=== PATIENT | male | born 1955 | race Caucasian/White ===

== ENCOUNTER 2016-06-04 09:22 | Inpatient (IN) | payer MEDICARE, MEDICAID ==
[~2016-06-04] VITALS: Ht 160 cm; Wt 52.0 kg
[2016-06-04] MEDS: MIRALAX *UNIT DOSE* 17GM PACKET TF SCH (09:00)
[~2016-06-04 09:22] MED LIST: /MOXI40TA PO; /TAMS4CA; /TAMS4CA PO; ACET65TA; ACET65TA OR; ALBU83IN IN; ALBU83IN INH; ATOR40TA PO; AUGM875T27 PO; BACITAB3 PO; CIPR250T2 PO; CLIN1CAP5 PO; DEBR6.5S OT; DEPA250C PO; FLOM5CAP PO; GLUC5TAB3 PO; HEMOSUP20 PR; JANU100T PO; JANUVIA PO; LEVA500T PO; LEVA750T; MIRA3350 PO; O2; PAXI20TA; PAXI20TA PO; PAXI20TA3 PO; PAXI40TA; PRED20TA; SENAKOT PO; SENN-23 PO; SENN8.6T5; SENO8.6T9 PO; SINE25TA5 PO; ZITH250T OR; ZOCO20TA; ZOCO40TA PO; ZYPR2.5T; ZYPR2.5T PO; ZYPR2.5T2 PO; ZYPR5TAB2 PO; [UNRECOGNIZED DRUG - CODE] PO; januvia
[2016-06-04 09:50] LABS: ABG BASE EXCESS 1.2 (-2.0-2.0); ABG DEVICE NASAL CANN; ABG HCO3 26.1 MEQ/L (22.0-26.0); ABG PARTIAL PRESSURE CO2 42.2 mmHg (35.0-45.0); ABG PARTIAL PRESSURE O2 130.4 mmHg (75.0-100.0); ABG STANDARD HCO3 25.6 MEQ/L (22.0-26.0); ABG TOTAL CO2 27.4 MEQ/L (23.0-31.0); ABG pH (ARTERIAL) 7.409 UNITS (7.350-7.450)
--- NOTE | 2016-06-04 09:52 | REP ---
Clinical: Acute shortness of breath. Technique: Portable semiupright. Comparison: 05/19/2016. Findings: Bilateral perihilar and lower lobe infiltrates with possible small pleural reaction noted. Differential diagnosis includes pulmonary edema as well as multifocal pneumonia. No pneumothorax. Mediastinum and cardiac silhouette are stable - mild cardiomegaly again suspected. Impression: Bilateral perihilar and basilar opacities. Differential diagnosis includes pulmonary edema and pneumonia. Signed by Steven Rossi MD 06/04/2016 09:43 A
[2016-06-04] MEDS ORDERED: ACETAMINOPHEN 325 MG TAB As Ordered ONE (10:08)
[2016-06-04 10:22] LABS: MEAN CORPUSCULAR HGB CONC 33.1 g/dl (32.0-36.5); MEAN CORPUSCULAR VOLUME 93.7 fl (80.0-96.0); PLATELET COUNT, AUTOMATED 122 k/mm3 (150-450); RED CELL DISTRIBUTION WIDTH 15.5 % (11.5-14.5); WHITE BLOOD COUNT 3.1 K/mm3 (4.0-10.0)
[2016-06-04 10:35] LABS: ANION GAP 8 MEQ/L (8-16); BLOOD UREA NITROGEN 20 MG/DL (7-18); CALCIUM LEVEL 8.2 MG/DL (8.8-10.2); CARBON DIOXIDE LEVEL 30 MEQ/L (21-32); CHLORIDE LEVEL 104 MEQ/L (98-107); CREATININE FOR GFR 1.08 MG/DL (0.70-1.30); GLOMERULAR FILTRATION RATE > 60.0 (>49); GLUCOSE, FASTING 180 MG/DL (80-110); POTASSIUM SERUM 4.7 MEQ/L (3.5-5.1); SODIUM LEVEL 142 MEQ/L (136-145)
[2016-06-04 10:41] LABS: INR 1.17
[2016-06-04 10:42] LABS: BANDS 4 % (< 11); BASOPHILS 2 % (0-4)
[2016-06-04] MEDS ORDERED: CEFEPIME INJ 2 GM VIAL (MAXIPIME) (J0692) As Ordered ONE (11:02)
[2016-06-04 11:14] LABS: ALBUMIN 2.9 GM/DL (3.2-5.2); ALBUMIN/GLOBULIN RATIO 0.76 (1.00-1.93); BILIRUBIN,DIRECT 0.3 MG/DL (0.0-0.2); BILIRUBIN,TOTAL 0.8 MG/DL (0.2-1.0); TOTAL PROTEIN 6.7 GM/DL (6.4-8.2)
[2016-06-04] MEDS ORDERED: SENN8.6T7 PO (11:52)
[2016-06-04] MEDS: HumaLOG INSULIN (NovoLOG) PER UNIT SC SCH ×2 (12:00→18:01)
--- NOTE | 2016-06-04 12:18 | REP ---
Clinical: Sepsis. Comparison: 05/19/2016. Findings: Multi focal alveolar infiltrates and areas of consolidation with air bronchograms involve the bilateral upper lobes, lower lobes, and right middle lobe which are increased when compared to prior examination. No pleural effusion. No pneumothorax. Subcentimeter reactive adenopathy to the mediastinum is suggested. Stable cardiomegaly. Surrounding musculoskeletal structures demonstrate age-related changes without focal osseous abnormality. Impression: 1. Bilateral multifocal infiltrates increased from prior examination. Differential diagnosis includes multifocal pneumonia and pulmonary edema. No effusion. Subcentimeter reactive lymph nodes without significant adenopathy. 2. Stable chronic cardiomegaly with minimal epicardial fluid. Signed by Steven Rossi MD 06/04/2016 12:09 P
[2016-06-04] MEDS ORDERED: BISACODYL 10 MG SUPP PR PRN (12:30)
[2016-06-04] MEDS ORDERED: ONDANSETRON 4MG/2ML VIAL (J2405) IV PRN (12:30)
[2016-06-04] MEDS ORDERED: GLUCAGON FOR INJ 1 MG VIAL (J1610) SC PRN (12:45)
[2016-06-04] MEDS ORDERED: GLUCOSE 4 GM CHEW TABLET PO PRN (12:45)
[2016-06-04] MEDS ORDERED: DEXTROSE 50% 50 ML SYRINGE IV PRN (12:45)
[2016-06-04] MEDS: IPRATROPIUM 0.5MG/ALBUTEROL 2.5MG INH SOL UD 3ML (DUONEB)(J7620) NEB SCH ×2 (14:00→19:14)
--- NOTE | 2016-06-04 14:23 | PHACANCOPD ---
PHARMACY VANCOMYCIN DOSING Pt Demographics Demographics Patient Age:61 , Weight:61.000 , Gender: male Adjusted Body Weight Date: 06/04/16, Adjusted Body Weight: Kg Events Past 24 Hours Events Past 24 Hours: NO: Change in CrCl, Dialysis, Diuretic Therapy, Elevation in WBC, Fever, Other, Pending Diagnostics, Pending Procedures Vancomycin Vancomycin indication: pneumonia Vancomycin Target Ranges: 10-20 mcg/ml Vancomycin Load Y/N: No Load Dose Date Time Vancomycin Load Dose: Date: Time: Vancomycin Dose Date: 06/04/16. Current Vancomycin Dose: [1g IV q12h @16] Intermittent Dosing?: No Labs Labs Item Value Date Time White Blood Count 3.1 K/mm3 L 06/04/16 1002 Creatinine 1.08 MG/DL 06/04/16 1002 C-Reactive Protein, Quantitative 2.32 MG/DL H 06/04/16 1044 Micro Microbiology 06/04/16 Blood Culture, Received Pending 06/04/16 Blood Culture, Received Pending 06/04/16 Urine Culture, Received Pending Creatinine Clearance Date:06/04/16. Creatinine Clearance: [58 ml/min]. Assessment and Plan Maintaining Current Dose?: Yes Reason for dose change: No Dose Change Pharmacist Note Pharmacist Note Date: 06/04/16. Pharmacist note: pt is being treated for aspiration pneumonia/ sepsis and has been started on Zosyn and Vanco. He was on Zosyn and Vanco earlier this month for the same indication. Based on prior dosing, I have started him on Vanco 1g IV q12h. Cultures are pending, we will continue to monitor and order a trough as necessary. Joni Barth Pharm.D. Jun 04, 2016 14:23
--- NOTE | 2016-06-04 14:28 | EDDOCDS ---
Nurse's Notes [facility] Name: Baldemar Jones Age: 61 yrs Sex: Male : 1955 Arrival Date: 06/04/2016 Time: 09:22 Bed 3 Private MD: Gerri High Diagnosis: Sepsis, unspecified organism;Bronchopneumonia, unspecified organism-multifocal ;Hypotension-resolved Presentation: 06/04 09:31 Presenting complaint: EMS states: low O2, 79-81% on RA upon EMS arrival. pt uses 2L O2 af2 at hs. per [facility] staff pt has been awake all night, diarrhea yesterday. Adult Sepsis Screening: The patient does not have new or worsening altered mentation. Patient's respiratory rate is less than 22. Systolic blood pressure is greater than 100. Patient has a qSOFA score of 1- Negative Sepsis Screen. Patient has cough and/or SOB- Positive Sepsis Screen. Patient made TANESHA Level 2. Patient placed in exam room. Charge nurse notified. Suicide/Homicide risk assessment- Unable to assess, due to patient's chronic mental disability. Status: Patient is not a patient financial services specialist or dependent. Transition of care: patient was received from [facility]. 09:31 Acuity: TANESHA Level 2 af2 09:31 Method Of Arrival: Ambulance af2 Triage Assessment: 09:47 General: Appears ill, Behavior is fussy. Pain: Unable to use pain scale. Does not af2 appear to understand pain scale. HIV screening NA for this visit Offered previously. Respiratory: Onset: The symptoms/episode began/occurred this morning, Airway is patent Respiratory effort is shallow, Parent/caregiver reports the patient having cough that is non-productive, decreased O2 sats. Derm: Skin is pale. Historical: - Allergies: No known drug Allergies; - Home Meds: 1. Miralax 17 gram/dose Oral powd once daily (Last dose: Unknown) 2. paroxetine HCl 20 mg Oral tab once daily (Last dose: Unknown) 3. Zyprexa 5 mg Oral tab 1 tab once daily (Last dose: 06/03/2016) 4. Sinemet 25-100 mg Oral tab 1 tab 3 times per day (Last dose: Unknown) 5. albuterol sulfate 2.5 mg /3 mL (0.083 %) inhalation nebu 3 mL 4 times per day (Last dose: Unknown) 6. atorvastatin 40 mg oral tab 1 tab once daily (Last dose: Unknown) 7. Flomax 0.4 mg Oral cp24 1 cap once daily (Last dose: Unknown) 8. Diabetic Tussin DM 10-100 mg/5 mL oral syrp every 6 hours (Last dose: Unknown) 9. Tylenol 325 mg Oral tab 2 tabs every 6 hours (Last dose: 06/04/2016 04:00) 10. oxygen 2 liters NC nightly (Last dose: Unknown) 11. Senna-S 8.6-50 mg oral tab prn (Last dose: Unknown) 12. Lipitor 40 mg Oral tab once daily - PMHx: Asthma; BPH; Diabetes - NIDDM: controlled; Down's Syndrome; Hypercholesterolemia; Parkinson's Disease; - PSHx: none; - The history from nurses notes was reviewed: and I agree with what is documented. - Social history: Smoking status: Patient states was never smoker of tobacco. non-verbal. - : The pt / caregiver states he / she is not on anticoagulants. Home medication list is obtained from the facility MAR. - Exposure Risk Screening:: None identified. - Immunization history:: All immunizations up-to-date. - Family history: Not pertinent. - Social history:: the patient is a non-smoker, resides at a fdc. Screenin:18 Screening information is obtained from the caregiver. Fall risk: At risk due to af2 apparent chemical impairment, The following interventions are performed due to a positive Fall Risk Screen: Fall Risk is added to Special Handling on the patient Summary Screen. A Fall Risk Bracelet was applied to the patient. Side Rails are placed in the up position. A Call Bowens is given with instruction to call for help when getting out of bed. Assistance ADL's: Requires assistance with meal preparation, this assistance is provided by residence staff, bathing, assistance is provided by dressing, assistance is provided by toileting, assistance is provided by ambulation, assistance is provided by housework, assistance is provided by medication administration, assistance is provided by medications crushed in applesauce. Abuse/DV Screen: The patient / caregiver reports he/she is: pt cannot be assessed for living situation at this time. Unable to Assess. Nutritional screening: On diabetic diet, Difficulty chewing/swallowing? Yes nectar thickened . Advance Directives: Currently, there is no health care proxy. home support is adequate. Assessment: 10:15 General: Appears distressed, Behavior is fussy. Pain: Noted to be agitated. af2 Neurological: Level of Consciousness is awake, alert. Cardiovascular: Rhythm is sinus rhythm No ectopy. Respiratory: Airway is patent Respiratory effort is shallow, Breath sounds with rhonchi bilaterally. in right middle lobe and left lower lobe Breath sounds are diminished bilaterally. Parent/caregiver reports the patient having cough that is decreased O2 saturations. GI: Parent/caregiver reports the patient having diarrhea. Derm: Skin is pale. 11:15 General: Appears ill, Behavior is cooperative, 1st 500cc bag of fluids infusing per MD af2 order, will monitor pt and reassess for rales upon completion. [facility] staff at bedside.. Neurological: Level of Consciousness is awake, alert. Respiratory: Airway is patent Respiratory effort is even, unlabored. Respiratory: Breath sounds are diminished bilaterally. Derm: Skin is pale. 11:56 General: Appears ill, Behavior is cooperative, 2nd 500cc NS started at this time. This af2 sports writer assessed breath sounds at this time, no rales noted. Breath sounds continue to be diminished in anterior cuello bilaterally. Will continue to monitor pt.. 12:52 General: Appears ill, Behavior is cooperative. Neurological: Level of Consciousness is af2 awake, alert. Cardiovascular: Rhythm is sinus rhythm No ectopy. Respiratory: Airway is patent Respiratory effort is even, unlabored, Breath sounds with rhonchi bilaterally. 12:55 General: this sports writer contacted hospitalist regarding pt receiving 1000 ml of 1800 ml af2 bolus, bilateral breath sounds contain rales. per hospitalist, change NS to run at 100 ml/hr.. 13:09 General: Report given to GWYN Siddiqui, in ICU. After admission information completed with af2 [facility] staff, she has agreed to assume care of pt.. 13:35 General: admission nurse at bedside.. af2 14:12 General: Appears ill, Behavior is cooperative. Neurological: Level of Consciousness is af2 awake, alert. Respiratory: Airway is patent Respiratory effort is even, unlabored. Respiratory: Parent/caregiver reports the patient having cough that is. GI:. Derm: Skin is pale. 14:16 General: 14Fr NG tube inserted to left nare at this time, pt tolerated well. . af2 Vital Signs: 09:35 Pulse 102; Resp 18; Pulse Ox 81% on R/A; af2 09:38 Pulse Ox 94% on 15% Non-rebreather mask; af2 09:47 BP 110 / 68 LA (man/); Temp 101.0(R); af2 10:03 BP 88 / 52 LA (man/); Resp 22 S; af2 10:24 BP 92 / 50 LA (man/); af2 10:39 Weight 61 kg (M); af2 10:43 BP 118 / 56 (auto/); af2 10:43 Pulse 72 MON; Resp 20 S; Pulse Ox 94% on 50% Venturi mask; af2 10:44 BP 100 / 55 (auto/); af2 10:44 Pulse 83 MON; Resp 20; Pulse Ox 94% on 50% Venturi mask; af2 11:00 BP 116 / 59 (auto/); af2 11:00 Pulse 98 MON; Resp 22 S; Pulse Ox 92% on 50% Venturi mask; af2 11:15 BP 111 / 58 (auto/); af2 11:15 Pulse 93 MON; Resp 20 S; Pulse Ox 93% on Venturi mask; af2 11:45 BP 114 / 56 (auto/); af2 11:49 Pulse 93 MON; Resp 18 S; Pulse Ox 95% on 50% Venturi mask; af2 12:00 BP 101 / 53 (auto/); af2 12:00 Pulse 80 MON; Resp 18 S; Pulse Ox 91% on 50% Venturi mask; af2 12:15 BP 99 / 56 (auto/); af2 12:15 Pulse 79 MON; Resp 20 S; Pulse Ox 93% on 50% Venturi mask; af2 12:25 Temp 99.1(R); ls3 12:30 BP 112 / 58 (auto/); af2 12:30 Pulse 86 MON; Resp 20 S; Pulse Ox 98% on Venturi mask; af2 12:45 BP 121 / 59 (auto/); af2 12:45 Pulse 81 MON; Resp 20 S; Pulse Ox 94% on 50% Venturi mask; af2 13:00 BP 112 / 55 (auto/); af2 13:00 Pulse 79 MON; Resp 20; Pulse Ox 95% on 50% Venturi mask; af2 13:15 BP 101 / 53 (auto/); af2 13:15 Pulse 76 MON; Resp 20 S; Pulse Ox 96% on 50% Venturi mask; af2 13:30 BP 107 / 54 (auto/); af2 13:30 Pulse 75 MON; Resp 20 S; Pulse Ox 97% on 50% Venturi mask; af2 13:45 BP 105 / 54 (auto/); af2 13:45 Pulse 77 MON; Resp 20 S; Pulse Ox 96% on 50% Venturi mask; af2 14:00 BP 110 / 58 (auto/); af2 14:00 Pulse 74 MON; Resp 20 S; Pulse Ox 96% on 50% Venturi mask; af2 14:15 BP 134 / 60 (auto/); af2 14:15 Pulse 79 MON; Resp 18; Pulse Ox 97% on 50% Venturi mask; af2 Vitals: 09:35 Log In Time N/A - ambulance arrival. af2 ED Course: 09:23 Patient visited by Angelica Woodruff PCA. ar3 09:23 Patient moved to Waiting ar3 09:24 Melody Stuart RN is Primary Nurse. ar3 09:24 Gerri High is Private Physician. ar3 09:24 Patient moved to 10 ar3 09:27 Blake Mauricio MD is Attending Physician. pc 09:32 Patient visited by Blake Mauricio MD. pc 09:34 Triage Initiated af2 09:36 Patient visited by Melody Stuart RN. af2 09:46 -Arterial Blood Gas Sent. js 10:01 Lactic Acid (Pickering tube on ice) Sent. jo3 10:01 -Blood Culture Sent. jo3 10:01 B-Type Natiuretic Peptide Sent. jo3 10:01 Basic Metabolic Profile Sent. jo3 10:01 CBC with Diff Sent. jo3 10:01 Cardiac Injury Profile Sent. jo3 10:01 Troponin Sent. jo3 10:01 Inserted saline lock: 18 gauge in right antecubital area. jo3 10:01 Labs drawn. (by ED staff). Sent per order to lab. Labs/Blood culture drawn. jo3 10:03 Patient visited by Melody Stuart RN. af2 10:05 Patient visited by Melody Stuart RN. af2 10:12 Chest, 1 View Returned. EDMS 10:16 Patient name changed from Baldemar\S\\S\[place]ber[place]\S\ to Baldemar\S\ \S\[place]. EDMS 10:17 Patient visited by Melody Stuart RN. af2 10:17 [facility] Payment Agreement was scanned into [employer] and attached to record. lg 10:24 Patient visited by Melody Stuart RN. af2 10:24 EKG done. (by ED staff). Reviewed by Blake Mauricio MD. tk 10:25 Patient visited by Hamilton Chandler. tk 10:31 Amylase Sent. af2 10:31 C Reactive Protein Sent. af2 10:31 Liver Profile Sent. af2 10:31 PT/INR Sent. af2 10:31 PTT Sent. af2 10:31 PLATELET ESTIMATE Sent. af2 10:31 DIFFERENTIAL NO CHARGE Sent. af2 10:31 BLOOD CULTURES Sent. af2 10:37 Patient moved to 3 pc 10:39 Patient visited by Melody Stuart RN. af2 10:57 Urinalysis Sent. af2 10:57 Urine Culture Sent. af2 11:12 Patient visited by Melody Stuart RN. af2 11:13 Inserted saline lock: 18 gauge in left forearm and blood collected. The patient af2 tolerated the procedure well. No procedures done that require assistance. 11:14 O2 via Venturi mask \T\ 15L/min - 50%. af2 11:20 Patient visited by Melody Stuart RN. af2 11:22 Forrester cath inserted 16 Fr. Balloon inflated. To gravity drainage. Urine specimen af2 collected. Patient tolerated well. 11:23 Patient visited by Melody Stuart RN. af2 11:28 Patient visited by Melody Stuart RN. af2 11:58 Patient visited by Melody Stuart RN. af2 12:25 Patient visited by Pippa Ramos, [place]. ls3 12:30 Patient visited by Melody Stuart RN. af2 12:35 Asuncion Saavedra is Hospitalizing Provider. pc 12:42 CT Chest Without Contrast Returned. EDMS 12:49 The patient / caregiver is instructed regarding the plan of care and ED course. af2 Accompanied by Caregiver, Patient has correct armband on for positive identification. Placed in gown. Bed in low position. Call light in reach. Side rails up X2. library monitor on. Pulse ox on. NIBP on. 12:50 Patient visited by Melody Stuart RN. af2 13:11 Patient visited by Kleber Franco RN. bcj 13:36 Patient visited by Melody Stuart RN. af2 14:15 NGT inserted 14 Fr. via left nare. Placement verified. af2 14:16 Patient visited by Melody Stuart RN. af2 14:21 Patient visited by Melody Stuart RN. af2 Administered Medications: 10:14 Drug: Acetaminophen 650 mg [acetaminophen 325 mg tablet (2 tabs)] {Note: crushed in af2 apple sauce..} Route: PO; 11:12 Drug: Cefepime 2 grams [cefepime 2 gram solution for injection] Route: IVPB; Rate: 100 af2 mL/hr; Infused Over: 30 mins; Site: right antecubital; 11:13 Drug: NS 0.9% (Sepsis- hypotension or lactate >4mmol/L, 30ml/kg) 1800 ml [sodium af2 chloride 0.9 % intravenous solution] {Note: 1st 500cc started at this time..} Route: IV; Rate: bolus; Site: left forearm; 12:35 Follow up: IV Status: Completed infusion; IV Intake: 500ml jf3 Intake: 11:56 IV: 550.00ml (NS); Total: 550.00ml. af2 12:35 IV: 500.00ml; Total: 1050.00ml. jf3 12:50 IV: 500.00ml (NS); Total: 1550.00ml. af2 Output: 11:22 Urine: 300.00ml (Forrester); Total: 300.00ml. af2 RT: 09:46 ABG's drawn from right brachial artery allens test done and positive pressure held for js 5 minutes no bleeding noted pressure bandage applied specimen sent pt. tolerated well. O2 via non-rebreather \T\ 15L/min. Order Results: Lab Order: B-Type Natiuretic Peptide; SPEC'M 06/04/16 10:02 Test: BRAIN NATRIURETIC PEPTIDE; Value: 103; Range: <100; Abnormal: Above high normal; Units: PG/ML; Status: F Lab Order: Basic Metabolic Profile; SPEC'M 06/04/16 10:02 Test: GLUCOSE, FASTING; Value: 180; Range: 80-110; Abnormal: Above high normal; Units: MG/DL; Status: F Test: BLOOD UREA NITROGEN; Value: 20; Range: 7-18; Abnormal: Above high normal; Units: MG/DL; Status: F Test: CREATININE FOR GFR; Value: 1.08; Range: 0.70-1.30; Units: MG/DL; Status: F Test: GLOMERULAR FILTRATION RATE; Value: > 60.0; Range: >49; Status: F Test: SODIUM LEVEL; Value: 142; Range: 136-145; Units: MEQ/L; Status: F Test: POTASSIUM SERUM; Value: 4.7; Range: 3.5-5.1; Units: MEQ/L; Status: F Test: CHLORIDE LEVEL; Value: 104; Range: 98-107; Units: MEQ/L; Status: F Test: CARBON DIOXIDE LEVEL; Value: 30; Range: 21-32; Units: MEQ/L; Status: F Test: ANION GAP; Value: 8; Range: 8-16; Units: MEQ/L; Status: F Test: CALCIUM LEVEL; Value: 8.2; Range: 8.8-10.2; Abnormal: Below low normal; Units: MG/DL; Status: F Test Note: ; Units are mL/min/1.73 m2 Chronic Kidney Disease Staging per NKF: Stage I & II GFR >=60 Normal to Mildly Decreased Stage III GFR 30-59 Moderately Decreased Stage IV GFR 15-29 Severely Decreased Stage V GFR <15 Very Little GFR Left ESRD GFR <15 on FURNACE TENDER Lab Order: CBC with Diff; SPEC'M 06/04/16 10:02 Test: WHITE BLOOD COUNT; Value: 3.1; Range: 4.0-10.0; Abnormal: Below low normal; Units: K/mm3; Status: F Test: RED BLOOD COUNT; Value: 4.14; Range: 4.30-6.10; Abnormal: Below low normal; Units: M/mm3; Status: F Test: HEMOGLOBIN; Value: 12.8; Range: 14.0-18.0; Abnormal: Below low normal; Units: g/dl; Status: F Test: HEMATOCRIT; Value: 38.8; Range: 42.0-52.0; Abnormal: Below low normal; Units: %; Status: F Test: MEAN CORPUSCULAR VOLUME; Value: 93.7; Range: 80.0-96.0; Units: fl; Status: F Test: MEAN CORPUSCULAR HEMOGLOBIN; Value: 31.0; Range: 27.0-33.0; Units: pg; Status: F Test: MEAN CORPUSCULAR HGB CONC; Value: 33.1; Range: 32.0-36.5; Units: g/dl; Status: F Test: RED CELL DISTRIBUTION WIDTH; Value: 15.5; Range: 11.5-14.5; Abnormal: Above high normal; Units: %; Status: F Test: PLATELET COUNT, AUTOMATED; Value: 122; Range: 150-450; Abnormal: Below low normal; Units: k/mm3; Status: F Test: NEUTROPHILS; Value: 71; Range: 35-75; Units: %; Status: F Test: BANDS; Value: 4; Range: < 11; Units: %; Status: F Test: LYMPHOCYTES; Value: 20; Range: 16-52; Units: %; Status: F Test: MONOCYTES; Value: 1; Range: 0-8; Units: %; Status: F Test: BASOPHILS; Value: 2; Range: 0-4; Units: %; Status: F Test: METAMYELOCYTES; Value: 2; Range: 0-0; Abnormal: Above high normal; Units: %; Status: F Test: RBC MORPHOLOGY; Value: NORMAL; Status: F Lab Order: Cardiac Injury Profile; SPEC' 06/04/16 10:02 Test: CPK CREATINE PHOSPHOKINASE; Value: 67; Range: 39-308; Units: U/L; Status: F Test: CK-MB VALUE MASS; Value: 1.6; Range: 0.0-3.6; Units: NG/ML; Status: F Test: MB/CK RELATIVE INDEX; Value: 2.38; Range: < OR =4; Status: F Test Note: ; DIAGNOSIS CRITERIA MMB ng/ml Relative Index (RI) NON-AMI < or = 5 N/A PICKERING ZONE > 5 < or = 4 AMI > 5 > 4 Lab Order: Troponin; SPEC'M 06/04/16 10:02 Test: TROPONIN I; Value: 0.05; Range: < 0.10; Units: NG/ML; Status: F Test Note: ; Troponin I Reference Interval for [employer] LOCI: 99th Percentile= 0.00-0.045 ng/ml Risk Stratification: <= 0.10 ng/ml Decreased Risk for Adverse Clinical Events. 0.10-1.50 ng/ml Increased Risk for Adverse Clinical Events. Evaluation of additional criterion and/or repeat testing in 2-6 hours is suggested to rule out myocardial damage. >= 1.50 ng/ml Indicative of Myocardial Injury. Lab Order: -Arterial Blood Gas; [facility] 06/04/16 09:44 Test: ABG pH (ARTERIAL); Value: 7.409; Range: 7.350-7.450; Units: UNITS; Status: F Test: ABG PARTIAL PRESSURE CO2; Value: 42.2; Range: 35.0-45.0; Units: mmHg; Status: F Test: ABG PARTIAL PRESSURE O2; Value: 130.4; Range: 75.0-100.0; Abnormal: Above high normal; Units: mmHg; Status: F Test: ABG TOTAL CO2; Value: 27.4; Range: 23.0-31.0; Units: MEQ/L; Status: F Test: ABG HCO3; Value: 26.1; Range: 22.0-26.0; Abnormal: Above high normal; Units: MEQ/L; Status: F Test: ABG BASE EXCESS; Value: 1.2; Range: -2.0-2.0; Status: F Test: ABG STANDARD HCO3; Value: 25.6; Range: 22.0-26.0; Units: MEQ/L; Status: F Test: ABG O2 SATURATION; Value: 99.0; Range: 95.0-99.0; Units: %; Status: F Test: ABG DEVICE; Value: NASAL CAMILO; Status: F Lab Order: Lactic Acid (Pickering tube on ice); [facility] 06/04/16 10:02 Test: LACTIC ACID LEVEL, LACTATE; Value: 2.2; Range: 0.4-2.0; Abnormal: Above upper panic limits; Units: MMOL/L; Status: F Lab Order: PLATELET ESTIMATE; SPEC' 06/04/16 10:02 Test: PLATELET ESTIMATE; Value: NORMAL; Range: NORMAL; Status: F Lab Order: Amylase; [facility] 06/04/16 10:44 Test: AMYLASE; Value: 27; Range: 25-115; Units: U/L; Status: F Lab Order: C Reactive Protein; [facility] 06/04/16 10:44 Test: C REACTIVE PROTEIN QUANTITATIV; Value: 2.32; Range: 0.00-0.30; Abnormal: Above high normal; Units: MG/DL; Status: F Lab Order: Liver Profile; [facility] 06/04/16 10:44 Test: AST/SGOT; Value: 13; Range: 15-37; Abnormal: Below low normal; Units: U/L; Status: F Test: ALT/SGPT; Value: 25; Range: 12-78; Units: U/L; Status: F Test: ALKALINE PHOSPHATASE; Value: 48; Range: 45-117; Units: U/L; Status: F Test: BILIRUBIN,TOTAL; Value: 0.8; Range: 0.2-1.0; Units: MG/DL; Status: F Test: BILIRUBIN,DIRECT; Value: 0.3; Range: 0.0-0.2; Abnormal: Above high normal; Units: MG/DL; Status: F Test: TOTAL PROTEIN; Value: 6.7; Range: 6.4-8.2; Units: GM/DL; Status: F Test: ALBUMIN; Value: 2.9; Range: 3.2-5.2; Abnormal: Below low normal; Units: GM/DL; Status: F Test: ALBUMIN/GLOBULIN RATIO; Value: 0.76; Range: 1.00-1.93; Abnormal: Below low normal; Status: F Lab Order: PT/INR; [facility] 06/04/16 10:04 Test: PROTHROMBIN TIME; Value: 15.0; Range: 12.3-14.5; Abnormal: Above high normal; Units: SECONDS; Status: F Test: INR; Value: 1.17; Status: F Test Note: ; THERAPUTIC HUMAN INR VALUES INDICATIONS NORMAL RANGES PROPHYLAXIS/TREATMENT OF: VENOUS THROMBOSIS 2.0-3.0 PULMONARY EMBOLISM 2.0-3.0 PREVENTION OF SYSTEMIC EMBOLISM FROM: TISSUE HEART VALVES 2.0-3.0 ACUTE MYOCARDIAL INFARCTION 2.0-3.0 VALVULAR HEART DISEASE 2.0-3.0 ATRIAL FIBRILLATION 2.0-3.0 MECHANICAL VALVES(HIGH RISK) 2.5-3.5 RECURRENT MYOCARDIAL INFARCTION 2.5-3.5 Lab Order: PTT; [facility] 06/04/16 10:04 Test: PARTIAL THROMBOPLASTIN TIME; Value: 28.5; Range: 26.6-37.1; Units: SECONDS; Status: F Lab Order: Type & Screen; [facility] 06/04/16 10:44 Test: BLOOD TYPE; Value: O POS; Status: F Test: AB SCREEN (INDIRECT RAULITO)GEL; Value: NEGATIVE; Status: F Lab Order: Urinalysis; [facility] 06/04/16 10:52 Test: APPEARANCE, URINE; Value: CLEAR; Range: CLEAR; Status: F Test: COLOR, URINE; Value: YELLOW; Range: YELLOW; Status: F Test: PH,URINE; Value: 6.0; Range: 5.0-9.0; Units: UNITS; Status: F Test: SPECIFIC GRAVITY URINE AUTO; Value: 1.015; Range: 1.002-1.035; Status: F Test: PROTEIN, URINE AUTO; Value: NEGATIVE; Range: NEGATIVE; Units: mg/dL; Status: F Test: GLUCOSE, URINE (UA) AUTO; Value: NEGATIVE; Range: NEGATIVE; Units: mg/dL; Status: F Test: KETONE, URINE AUTO; Value: NEGATIVE; Range: NEGATIVE; Units: mg/dL; Status: F Test: UROBILINOGEN, URINE AUTO; Value: 0.2; Range: 0.0-2.0; Units: mg/dL; Status: F Test: BILIRUBIN, URINE AUTO; Value: NEGATIVE; Range: NEGATIVE; Status: F Test: NITRITE, URINE AUTO; Value: NEGATIVE; Range: NEGATIVE; Status: F Test: LEUKOCYTE ESTERASE, URINE AUTO; Value: NEGATIVE; Range: NEGATIVE; Status: F Test: BLOOD, URINE BLOOD; Value: NEGATIVE; Range: NEGATIVE; Status: F Test: WBC, URINE AUTO; Value: 0; Range: 0-3; Units: /HPF; Status: F Test: RBC, URINE AUTO; Value: 1; Range: 0-3; Units: /HPF; Status: F Test: BACTERIA, URINE AUTO; Value: NEGATIVE; Range: NEGATIVE; Status: F Test: SQUAMOUS EPITHELIAL CELL UR AU; Value: 0; Range: 0-6; Units: /HPF; Status: F Test: HYALINE CAST, URINE AUTO; Value: 0; Range: 0-1; Units: /LPF; Status: F Radiology Order: Chest, 1 View Test: Chest, 1 View REASON FOR EXAMINATION: Shortness of Breath; Clinical: Acute shortness of breath.; ; Technique: Portable semiupright.; ; Comparison: 05/19/2016.; ; Findings:; Bilateral perihilar and lower lobe infiltrates with possible small pleural; reaction noted. Differential diagnosis includes pulmonary edema as well as; multifocal pneumonia. No pneumothorax. Mediastinum and cardiac silhouette are; stable - mild cardiomegaly again suspected.; ; Impression:; Bilateral perihilar and basilar opacities. Differential diagnosis includes; pulmonary edema and pneumonia.; ; ; Signed by; Steven Rossi MD 06/04/2016 09:43 A; Radiology Order: CT Chest Without Contrast Test: CT Chest Without Contrast REASON FOR EXAMINATION: sepsis; Clinical: Sepsis.; ; Comparison: 05/19/2016.; ; Findings:; Multi focal alveolar infiltrates and areas of consolidation with air bronchograms; involve the bilateral upper lobes, lower lobes, and right middle lobe which are; increased when compared to prior examination. No pleural effusion. No; pneumothorax. Subcentimeter reactive adenopathy to the mediastinum is suggested.; Stable cardiomegaly. Surrounding musculoskeletal structures demonstrate; age-related changes without focal osseous abnormality.; ; Impression:; 1. Bilateral multifocal infiltrates increased from prior examination.; Differential diagnosis includes multifocal pneumonia and pulmonary edema. No; effusion. Subcentimeter reactive lymph nodes without significant adenopathy.; 2. Stable chronic cardiomegaly with minimal epicardial fluid.; ; ; Signed by; Steven Rossi MD 06/04/2016 12:09 P; Outcome: 12:35 Decision to Hospitalize by Provider. pc 12:49 Discharge Assessment: Patient awake, alert and oriented x 3. No cognitive and/or af2 functional deficits noted. Patient verbalized understanding of disposition instructions. patient administered narcotics - no. The following High Risk Discharge criteria are identified: None. Admitted to ICU accompanied by nurse, accompanied by tech, via stretcher, with oxygen, on monitor, with chart. Condition: stable. CT Study completed. Property :Personal belongings accompany Pt. 14:26 Patient left the ED. [facility] Signatures: Dispatcher [employer] Blake Cantu MD MD pc Johnson, Bruce, RN RN bcj Darshana Momin, Joseph Reg lg Omer,Jing Alvarado,GWYN RN jo3 Angelica Woodruff, RING SORTER RING SORTER ar3 Melody Stuart,RN RN af2 Pippa Ramos, RING SORTER RING SORTER ls3 Hamilton Chandler Justin,GWYN RN jf3 Corrections: (The following items were deleted from the chart) 10:05 10:03 BP 88 / 52 Manual L Arm; af2 af2 MTDD
--- NOTE | 2016-06-04 14:28 | EDDOCDS ---
Physician Documentation [facility] Name: Baldemar Jones Age: 61 yrs Sex: Male : 1955 Arrival Date: 06/04/2016 Time: 09:22 Bed 3 Private MD: Gerri High Disposition: 06/04 12:32 Critical Care:. pc Disposition: 06/04/16 12:35 Hospitalization ordered by Asuncion Saavedra for Inpatient Admission. Preliminary diagnosis are Sepsis, unspecified organism, Bronchopneumonia, unspecified organism - multifocal , Hypotension - resolved . - Bed requested for ICU. - Status is Inpatient Admission. bcj - Condition is Stable. - Problem is new. - Symptoms have improved. HPI: 09:46 This 61 yrs old Male presents to ER via Ambulance with complaints of pc Shortness Of Breath. 09:46 The history is obtained from [facility] staff. A reliable history and/or examination was not pc able to be obtained, due to patient's Down's syndrome with severe disabilities . Per staff, he has had low O2 sats through the night, 75-80%, prompting EMS being called. He arrives with sats if 91% on a NRB. No cough is described, no fevers. He did have a bout of diarrhea once through the night. He is reported to have recurrent aspiration pneumonia but his swallowing test was normal. The patient has experienced similar episodes in the past, multiple times. The patient has been recently been admitted at [facility], was discharged last week, for similar complaints. Historical: - Allergies: No known drug Allergies; - Home Meds: 1. Miralax 17 gram/dose Oral powd once daily (Last dose: Unknown) 2. paroxetine HCl 20 mg Oral tab once daily (Last dose: Unknown) 3. Zyprexa 5 mg Oral tab 1 tab once daily (Last dose: 06/03/2016) 4. Sinemet 25-100 mg Oral tab 1 tab 3 times per day (Last dose: Unknown) 5. albuterol sulfate 2.5 mg /3 mL (0.083 %) inhalation nebu 3 mL 4 times per day (Last dose: Unknown) 6. atorvastatin 40 mg oral tab 1 tab once daily (Last dose: Unknown) 7. Flomax 0.4 mg Oral cp24 1 cap once daily (Last dose: Unknown) 8. Diabetic Tussin DM 10-100 mg/5 mL oral syrp every 6 hours (Last dose: Unknown) 9. Tylenol 325 mg Oral tab 2 tabs every 6 hours (Last dose: 06/04/2016 04:00) 10. oxygen 2 liters NC nightly (Last dose: Unknown) 11. Senna-S 8.6-50 mg oral tab prn (Last dose: Unknown) 12. Lipitor 40 mg Oral tab once daily - PMHx: Asthma; BPH; Diabetes - NIDDM: controlled; Down's Syndrome; Hypercholesterolemia; Parkinson's Disease; - PSHx: none; - The history from nurses notes was reviewed: and I agree with what is documented. - Social history: Smoking status: Patient states was never smoker of tobacco. non-verbal. - : The pt / caregiver states he / she is not on anticoagulants. Home medication list is obtained from the facility AUG. - Exposure Risk Screening:: None identified. - Immunization history:: All immunizations up-to-date. - Family history: Not pertinent. - Social history:: the patient is a non-smoker, resides at a retirement. ROS: 09:46 All systems are negative except as listed. pc Exam: 09:54 General Appearance: alert, the patient is in mild distress. pc 09:54 EENT: normal eye inspection, ears, nose and throat normal, pharynx normal, mucous membranes moist 09:54 Neck: The exam reveals no acute abnormalities. ROM is normal and painless. No nuchal rigidity is noted.. 09:54 Respiratory: Mild respiratory distress noted. Respirations/effort: shallow respirations, tachypnea, Breath sounds: rhonchi, wheezing, throughout, Decreased breath sounds, in the left posterior lower lobe and right posterior lower lobe. 09:54 CVS: regular rhythm, normal S1 and S2, no murmurs, strong peripheral pulses, normal capillary refill, the patient is tachycardic, at 102 bpm. 09:54 Abdomen: soft, non-tender, no organomegaly, normal bowel sounds. 09:54 Back: normal inspection. 09:54 Skin: skin color is normal, warm, dry, the skin turgor is good. 09:54 Extremities: The extremities have a grossly normal appearance. 09:54 Neuro: Mentation: lucid. Vital Signs: 09:35 Pulse 102; Resp 18; Pulse Ox 81% on R/A; af2 09:38 Pulse Ox 94% on 15% Non-rebreather mask; af2 09:47 BP 110 / 68 LA (man/); Temp 101.0(R); af2 10:03 BP 88 / 52 LA (man/); Resp 22 S; af2 10:24 BP 92 / 50 LA (man/); af2 10:39 Weight 61 kg / 134.48 lbs (M); af2 10:43 BP 118 / 56 (auto/); af2 10:43 Pulse 72 MON; Resp 20 S; Pulse Ox 94% on 50% Venturi mask; af2 10:44 BP 100 / 55 (auto/); af2 10:44 Pulse 83 MON; Resp 20; Pulse Ox 94% on 50% Venturi mask; af2 11:00 BP 116 / 59 (auto/); af2 11:00 Pulse 98 MON; Resp 22 S; Pulse Ox 92% on 50% Venturi mask; af2 11:15 BP 111 / 58 (auto/); af2 11:15 Pulse 93 MON; Resp 20 S; Pulse Ox 93% on Venturi mask; af2 11:45 BP 114 / 56 (auto/); af2 11:49 Pulse 93 MON; Resp 18 S; Pulse Ox 95% on 50% Venturi mask; af2 12:00 BP 101 / 53 (auto/); af2 12:00 Pulse 80 MON; Resp 18 S; Pulse Ox 91% on 50% Venturi mask; af2 12:15 BP 99 / 56 (auto/); af2 12:15 Pulse 79 MON; Resp 20 S; Pulse Ox 93% on 50% Venturi mask; af2 12:25 Temp 99.1(R); ls3 12:30 BP 112 / 58 (auto/); af2 12:30 Pulse 86 MON; Resp 20 S; Pulse Ox 98% on Venturi mask; af2 12:45 BP 121 / 59 (auto/); af2 12:45 Pulse 81 MON; Resp 20 S; Pulse Ox 94% on 50% Venturi mask; af2 13:00 BP 112 / 55 (auto/); af2 13:00 Pulse 79 MON; Resp 20; Pulse Ox 95% on 50% Venturi mask; af2 13:15 BP 101 / 53 (auto/); af2 13:15 Pulse 76 MON; Resp 20 S; Pulse Ox 96% on 50% Venturi mask; af2 13:30 BP 107 / 54 (auto/); af2 13:30 Pulse 75 MON; Resp 20 S; Pulse Ox 97% on 50% Venturi mask; af2 13:45 BP 105 / 54 (auto/); af2 13:45 Pulse 77 MON; Resp 20 S; Pulse Ox 96% on 50% Venturi mask; af2 14:00 BP 110 / 58 (auto/); af2 14:00 Pulse 74 MON; Resp 20 S; Pulse Ox 96% on 50% Venturi mask; af2 14:15 BP 134 / 60 (auto/); af2 14:15 Pulse 79 MON; Resp 18; Pulse Ox 97% on 50% Venturi mask; af2 MDM: 09:31 -Blood Culture (Adults Only), peripheral from different site, or from device/port/PICC pc etc. if present ordered. 09:31 Hand I Blocker/Pulse Ox/q 15 min VS ordered. pc 09:31 IV Saline Lock ordered. pc 09:31 Oxygen at 4L/Min NC or Home dosage ordered. pc 09:31 Rhythm Strip to chart ordered. pc 09:31 Call Respiratory ordered. pc 09:32 Call Respiratory complete. ar3 09:32 B-Type Natiuretic Peptide Ordered. EDMS 09:32 -Blood Culture (Adults Only), peripheral from different site, or from device/port/PICC ar3 etc. if present complete. 09:32 Basic Metabolic Profile Ordered. EDMS 09:32 CBC with Diff Ordered. EDMS 09:33 Cardiac Injury Profile Ordered. EDMS 09:33 Troponin Ordered. EDMS 09:33 -Arterial Blood Gas Ordered. EDMS 09:33 -Blood Culture Ordered. EDMS 09:33 Chest, 1 View Ordered. EDMS 09:33 ECG WITH READING ER PHYS+CARDIAG ordered. EDMS 09:33 Lactic Acid ([place] tube on ice) Ordered. EDMS 09:34 BLOOD CULTURES Ordered. EDMS 09:54 Acetaminophen Tablet 650 mg PO once ordered. pc 09:54 Differential Diagnosis: hypoxia with history of recurrent pneumonia; advanced pc Parkinson's and Down's. Plan: labs, meds, imagineg. 09:56 Financial registration complete. lg 09:57 -Arterial Blood Gas Reviewed. pc 10:17 [facility] Payment Agreement was scanned into [employer] and attached to record. lg 10:23 DIFFERENTIAL NO CHARGE Ordered. EDMS 10:23 PLATELET ESTIMATE Ordered. EDMS 10:27 Large bore IV x 2 ordered. pc 10:27 Intake and Output Hourly ordered. pc 10:27 Forrester ordered. pc 10:28 Amylase Ordered. EDMS 10:28 C Reactive Protein Ordered. EDMS 10:28 Liver Profile Ordered. EDMS 10:28 PT/INR Ordered. EDMS 10:28 PTT Ordered. EDMS 10:28 Type & Screen Ordered. EDMS 10:28 Urinalysis Ordered. EDMS 10:28 Urine Culture Ordered. EDMS 10:30 Test interpretation: EKG. pc 10:30 Data reviewed: old medical records, vital signs, nurses notes, EKG(s), lab test pc results, all radiology studies and available results. Test interpretation: Arterial blood gas is normal except. pO2: 117. 10:42 Cefepime 2 grams IVPB at 100 mL/hr once over 30 mins; dilute in 50mL of NS or D5W pc ordered. 10:42 NS 0.9% (Sepsis- hypotension or lactate >4mmol/L, 30ml/kg) 1800 ml IV at bolus once; pc Give in 500mL aliquots, assess for rales after each, inform provider ordered. 10:42 B-Type Natiuretic Peptide Reviewed. pc 10:42 Basic Metabolic Profile Reviewed. pc 10:42 CBC with Diff Reviewed. pc 10:42 Lactic Acid ([place] tube on ice) Reviewed. pc 10:42 Cardiac Injury Profile Reviewed. pc 10:42 Troponin Reviewed. pc 10:42 Chest, 1 View Reviewed. pc 11:08 CT Chest Without Contrast Ordered. EDMS 11:19 CBC with Diff Reviewed. pc 11:19 C Reactive Protein Reviewed. pc 11:19 Liver Profile Reviewed. pc 11:19 PT/INR Reviewed. pc 11:19 PLATELET ESTIMATE Reviewed. pc 11:19 Amylase Reviewed. pc 11:19 PTT Reviewed. pc 11:19 Type & Screen Reviewed. pc 11:19 Urinalysis Reviewed. pc 11:22 BED REQUEST+ADM ordered. EDMS 12:02 Type & Screen Reviewed. pc 12:23 CARDIAC MARKER PANEL Ordered. EDMS 12:23 LACTIC ACID LEVEL, LACTATE Ordered. EDMS 12:24 SPUTUM CULTURE AND GRAM STAIN Ordered. EDMS 12:26 GASTROINTESTINAL (GI) PANEL Ordered. EDMS 12:32 MRSA SCREEN Ordered. EDMS 12:32 Test interpretation: X-RAY - interpreted by Radiologist and personally reviewed, 1 view pc chest perihilar infiltrates v edema interpreted by Radiologist and personally reviewed, Chest CT; multifocal pneumonia . The patient has been re-examined and re-evaluated. The patient's symptoms have markedly improved after treatment. Physician consultation: Dr. Asuncion Saavedra regarding admission. Disposition: The historical points, examination findings, and any diagnostic results supporting the provided diagnosis, were discussed with the patient or legal guardian. The need for further work-up and/or treatment in the hospital was explained. 12:34 Admission / Observation Status ordered. EDMS 12:34 NPO DIET ordered. EDMS 13:53 MRSA SCREEN Ordered. EDMS 14:19 Chest, 1 view Ordered. EDMS EC:30 Rate is 99 beats/min. Rhythm is regular, Normal Sinus Rhythm. QRS [place] is Normal. [place] pc interval is prolonged at 213 msec. QRS interval is prolonged at 141 msec. QT interval is normal. No Q waves. T waves are Normal. No ST changes noted. Clinical impression: Normal Sinus Rhythm, LBBB, and 1st degree heart block. No change from previous ECG on May 19, 2016. Administered Medications: 10:14 Drug: Acetaminophen 650 mg [acetaminophen 325 mg tablet (2 tabs)] {Note: crushed in af2 apple sauce..} Route: PO; 11:12 Drug: Cefepime 2 grams [cefepime 2 gram solution for injection] Route: IVPB; Rate: 100 af2 mL/hr; Infused Over: 30 mins; Site: right antecubital; 11:13 Drug: NS 0.9% (Sepsis- hypotension or lactate >4mmol/L, 30ml/kg) 1800 ml [sodium af2 chloride 0.9 % intravenous solution] {Note: 1st 500cc started at this time..} Route: IV; Rate: bolus; Site: left forearm; 12:35 Follow up: IV Status: Completed infusion; IV Intake: 500ml jf3 Critical Care Time: 12:32 Critical care time: Bedside Care: 35 minutes, Consultation: 10 minutes, [facility] Staff pc intervention: 20 minutes. Total time: 65 minutes Signatures: Dispatcher [employer] EDGA Blake Mauricio MD MD pc Johnson, Bruce, RN RN bcj Darshana Momin, Reg Reg lg Kacy, Angelica, ANCHORMAN ANCHORMAN ar3 Zo Ahuja, RN RN sls2 Melody Stuart RN RN af2 Gilbert Mandel RN jf3 The chart was reviewed and I authenticate all verbal orders and agree with the evaluation and treatment provided.Corrections: (The following items were deleted from the chart) 12:25 12:24 GASTROINTESTINAL (GI) PANEL ordered. EDMS EDMS 14:05 12:30 Cookie Swallow Mod.Ba Swallow ordered. EDMS EDMS 14:26 12:30 Chest, 1 view ordered. EDMS EDMS Attachments: 10:17 [facility] Payment Agreement lg MTDD
--- NOTE | 2016-06-04 14:38 | REP ---
Clinical: Line placement. Comparison: 06/04/2016 and 09:45 a.m. Findings: Nasogastric tube extends into the left upper quadrant. Cardiomegaly and perihilar/basilar opacities are again identified. No obvious effusion. No pneumothorax. Skeletal structures intact. Impression: Nasogastric tube in satisfactory position. Differential diagnosis includes pulmonary edema and multifocal pneumonia. Signed by Steven Rossi MD 06/04/2016 02:31 P
[2016-06-04 14:45] VITALS: BP 135/58
[2016-06-04 15:00] VITALS: BP 94/52
[2016-06-04] MEDS: PANTOPRAZOLE 40MG INJ (PROTONIX) (C9113) IV SCH (15:11)
[2016-06-04] MEDS: PARoxetine 20 MG TAB NG SCH (15:11)
[2016-06-04] MEDS: LR 1,000 ML IV SCH ×2 (15:15→22:06)
[2016-06-04] MEDS ORDERED: SLF 3 ML SYR IV PRN (15:30)
[2016-06-04 16:00] VITALS: BP 98/49
[2016-06-04] MEDS: SINEMET 25-100 MG TAB NG SCH ×2 (16:10→20:35)
[2016-06-04] MEDS: VANCOMYCIN HCL 1,000 MG, VIAL MATE ADAPTER 1 EACH in D5W 250 ML IV SCH (16:11)
[2016-06-04] MEDS: PIPERACILLIN/TAZOBACTAM SOD 3.375 GM in D5W MINI-BAG PLUS 50 ML IV SCH (17:59)
[2016-06-04 18:00] VITALS: BP 116/55
--- NOTE | 2016-06-04 18:04 | HPE ---
DATE OF ADMISSION: 06/04/2015 CHIEF COMPLAINT: Diarrhea and hypoxia with fever. HISTORY OF PRESENT ILLNESS: Limited secondary to patient's baseline mental status. Patient's baseline minimally verbal. This is a 61-year-old male patient with underlying medical history of Down syndrome, asthma, benign prostatic hypertrophy (BPH), vtl-msdlyur-rsihupsiv diabetes, dyslipidemia, Parkinson's disease, recurrent admissions for aspiration pneumonia. The patient was just discharged on 05/24/2016. Baseline is minimal ambulation with assistance. The patient was brought in with dyspnea, diarrhea and fevers at [facility] ([facility]). Further history not possible given the patient's very baseline minimally verbal. The patient was found hypoxic down to 80% at [facility], in the emergency room requiring 50% Ventimask with saturation of 92%. ALLERGIES: No known drug allergies. PAST MEDICAL HISTORY: 1. Recurrent pneumonia. 2. History of aspiration pneumonia. 3. Down syndrome. 4. Xzq-vtphwnn-dathxpdtw type 2 diabetes. 5. Asthma. 6. BPH. 7. Dyslipidemia. 8. Parkinson's. 9. Abdominal wall hernia. PAST SURGICAL HISTORY: None listed. SOCIAL HISTORY: The patient lives at [facility]. Does not smoke. FAMILY HISTORY: Unobtainable. REVIEW OF SYSTEMS: Unable to obtain given the patient's baseline minimally verbal. HOME MEDICATIONS: - albuterol nebulizer inhalation four times a day - Lipitor 40 mg by mouth at bedtime - Sinemet 25/100 one tablet by mouth three times a day - Senna 8.6/50 mg one tablet at bedtime as needed - Zyprexa 5 mg by mouth at bedtime - Paxil 20 mg by mouth daily - MiraLAX 17 grams by mouth daily - Flomax 0.4 mg by mouth every evening PHYSICAL EXAMINATION: VITAL SIGNS: Temperature 101, heart rate 102, blood pressure 110/68, respirations 18, pulse oximetry 81% on room air, 92% on 50% Ventimask. GENERAL: The patient is pale, arousable, mainly nonverbal, in no acute distress. HEENT: Normocephalic. Facial features consistent with Down syndrome. Pupils are equal, round and reactive. Moist mucous membranes. NECK: Supple. PULMONARY: Diminished breath sounds bilaterally. No accessory muscle use. Bilateral rhonchi. CARDIAC: Regular rate and rhythm. Normal S1, S2. ABDOMEN: Soft, nontender, nondistended. Positive bowel sounds. EXTREMITIES: No edema bilateral lower extremities. IMAGING: EKG: Left bundle branch block with ventricular rate of 99, first-degree heart block that is old. No significant change compared to prior. CT of the chest shows bilateral multifocal infiltrate increased from prior exam. Stable chronic cardiomegaly. Minimal pericardial effusion. LABORATORY DATA: WBC 3.2, hemoglobin and hematocrit 12.8 over 38.8, platelets 122. Chemistry sodium 142, potassium 4.7, chloride 104, bicarbonate 30, BUN 20, creatinine 1.08, lactic acid 2.2. C-reactive protein 2.32. ASSESSMENT AND PLAN: This is a 61-year-old male patient with underlying medical history of Down syndrome, asthma, benign prostatic hypertrophy (BPH), cwt-lrvzrka-vcacaeacd type 2 diabetes, Parkinson's, dyslipidemia, recurrent pneumonia, admitted with multifocal healthcare-associated bacterial pneumonia. 1. Sepsis secondary to multifocal healthcare-associated bacterial pneumonia. Possible also aspiration pneumonia. The patient currently made nothing by mouth. Intravenous (IV) fluids. Followup lactic acid. Followup C-reactive protein. Followup cultures. Vancomycin and Zosyn. 2. Likely aspiration pneumonia. Patient made nothing by mouth. Modified barium study. Patient will likely need a percutaneous endoscopic gastrostomy (PEG) tube, given recurrent aspiration pneumonia. Currently nothing by mouth. Nasogastric (NG) tube for medication. IV fluids for hydration. 3. Diarrhea. Rule out Clostridium (C.) difficile. We will continue to monitor. IV fluids for hydration. 4. Asthma. Patient currently not having wheeze. Nebulizer treatment. 5. Benign prostatic hypertrophy (BPH). Continue home medications. 6. Diet-controlled type 2 diabetes, non-insulin dependent. Followup fingersticks. Insulin as needed. 7. Dyslipidemia. Holding statin given patient's nothing by mouth for aspiration risk. 8. Parkinson's disease. Medication via NG tube. 9. Deep venous thrombosis (DVT) prophylaxis. Lovenox subcutaneous. DISPOSITION PLANNING: Pending modified cookie swallow, clinical improvement. Possible PEG tube placement.
[2016-06-04 19:15] VITALS: O2SAT 94
[2016-06-04 20:00] VITALS: BP 125/59
[2016-06-04] MEDS: OLANZapine 5 MG TAB NG SCH (20:36)
[2016-06-04] MEDS: SENOKOT S TAB NG SCH (20:36)
[2016-06-04] MEDS ORDERED: TAMSULOSIN 0.4 MG CAP PO SCH (21:00)
[2016-06-04] MEDS: SLF 3 ML SYR IV SCH (22:05)
[2016-06-05] VITALS (10 sets, daily range): BP systolic 101–143; BP diastolic 54–65; O2SAT 91–93
[2016-06-05] MEDS: PIPERACILLIN/TAZOBACTAM SOD 3.375 GM in D5W MINI-BAG PLUS 50 ML IV SCH ×3 (00:54→16:56)
[2016-06-05] MEDS: IPRATROPIUM 0.5MG/ALBUTEROL 2.5MG INH SOL UD 3ML (DUONEB)(J7620) NEB SCH ×4 (01:42→20:06)
[2016-06-05] MEDS: LR 1,000 ML IV SCH (02:50)
[2016-06-05] MEDS: VANCOMYCIN HCL 1,000 MG, VIAL MATE ADAPTER 1 EACH in D5W 250 ML IV SCH ×2 (03:39→16:56)
[2016-06-05 04:39] LABS: MEAN CORPUSCULAR HEMOGLOBIN 30.7 pg (27.0-33.0); MEAN CORPUSCULAR HGB CONC 32.8 g/dl (32.0-36.5); MEAN CORPUSCULAR VOLUME 93.6 fl (80.0-96.0); RED CELL DISTRIBUTION WIDTH 16.1 % (11.5-14.5); WHITE BLOOD COUNT 6.2 K/mm3 (4.0-10.0)
[2016-06-05 04:51] LABS: ANION GAP 8 MEQ/L (8-16); BLOOD UREA NITROGEN 15 MG/DL (7-18); CALCIUM LEVEL 7.6 MG/DL (8.8-10.2); CARBON DIOXIDE LEVEL 27 MEQ/L (21-32); CHLORIDE LEVEL 106 MEQ/L (98-107); CREATININE FOR GFR 0.84 MG/DL (0.70-1.30); GLOMERULAR FILTRATION RATE > 60.0 (>49); GLUCOSE, FASTING 136 MG/DL (80-110); MAGNESIUM LEVEL 1.6 MG/DL (1.8-2.4); POTASSIUM SERUM 3.8 MEQ/L (3.5-5.1); SODIUM LEVEL 141 MEQ/L (136-145)
[2016-06-05] MEDS: HumaLOG INSULIN (NovoLOG) PER UNIT SC SCH ×4 (05:17→18:10)
[2016-06-05] MEDS: SINEMET 25-100 MG TAB NG SCH ×3 (05:17→18:10)
[2016-06-05] MEDS: SLF 3 ML SYR IV SCH ×3 (05:18→22:35)
[2016-06-05] MEDS ORDERED: MAG SULF 1GM/100ML (MAG RUN) 1 GM in APPROPRIATE DILUENT 1 EA IV ONE (07:30)
--- NOTE | 2016-06-05 08:24 | ECGEPIP ---
Stationary ECG Study [facility] - ED Test Date: 2016-06-04 Pat Name: BARI SERVIN Department: Room: - Gender: M Evs Manager: tk : [id number] Requested By: Blake Heard Order Number: [id number] Reading MD: Gali Salmeron Measurements Intervals [place] Rate: 99 P: 42 [place]: 213 QRS: 14 QRSD: 141 T: 166 QT: 375 QTc: 483 Interpretive Statements SINUS RHYTHM WITH FIRST DEGREE AV BLOCK LEFT BUNDLE BRANCH BLOCK INCREASED RATE 05/19/16 Electronically Signed On 06-05-2016 8:24:01 EST by Gali Salmeron
[2016-06-05] MEDS: ENOXAPARIN 40 MG/0.4 ML SYRINGE (J1650) SC SCH (08:27)
[2016-06-05] MEDS: SENOKOT S TAB NG SCH ×2 (08:27→20:37)
[2016-06-05] MEDS: PANTOPRAZOLE 40MG INJ (PROTONIX) (C9113) IV SCH (08:27)
[2016-06-05] MEDS: MIRALAX *UNIT DOSE* 17GM PACKET TF SCH (08:27)
[2016-06-05] MEDS: PARoxetine 20 MG TAB NG SCH (08:27)
--- NOTE | 2016-06-05 12:43 | IPNPDOC ---
Assessment/Plan Date Seen The patient was seen on 06/05/16. Problems Problems: (1) Sepsis Status: Resolved Response to Treatment: Stable Problem Text: may be 2/2 to healthcare acquired bacterial pneumonia or aspiration pneumonia NPO w/ IV fluids running lactic acid 1.4 from 2.2 CRP increased to 11.20 from 2.3 on admission urine culture pending blood cx, negative growth after 24 hours pt on zosyn and vancomycin abx therapy (2) Aspiration pneumonia Status: Acute Response to Treatment: Stable Problem Text: NPO Will have swallow study done tomorrow, was explained to pts family that pt would benefit from PEG tube placement since he has hx of aspiration events. Family said they would consider it. NG tube in place for medication IV fluids running for hydration (3) Diarrhea Status: Resolved Response to Treatment: Stable Problem Text: r/o C. diff. pending IV fluids for hydration (4) Asthma Status: Chronic Response to Treatment: Stable Problem Text: Nebulizer treatments ordered Pt is not wheezing currently continue to monitor (5) BPH (benign prostatic hyperplasia) Status: Chronic Response to Treatment: Stable Problem Text: continue home medications (6) Parkinson's disease Status: Chronic Problem Text: medications per NG tube (7) DM2 (diabetes mellitus, type 2) Status: Chronic Response to Treatment: Stable Problem Text: diet controlled non insulin dependent will monitor finger sticks insulin as needed (8) Dyslipidemia Status: Chronic Response to Treatment: Stable Problem Text: will hold home statin therapy as pt is made NPO and aspiration risk (9) DVT prophylaxis Status: Chronic Response to Treatment: Stable Problem Text: lovenox therapy Plan / VTE VTE Prophylaxis Ordered?: Yes Subjective Review of Systems CC/HPI The patient is a 61-year-old male admitted with a reason for visit of Aspiration Pneumonia,Sepsis. General: Reports: ROS Unobtainable (pt is unable to answer questions for me given his mental cognition ) Objective Physical Examination General Exam: Negative: Alert (pt is sleeping and arousable to voice, unfortunately most of the exam consisted of him grunting and crying out but not making sense with his communication due to his baseline intellectual deficiency ), Cooperative Eye Exam: Positive: Conjunctiva & lids normal, PERRLA, Negative: Ptosis, Sclera icteric ENT Exam: Positive: Atraumatic, Mucous membr. moist/pink Neck Exam: Positive: Supple Chest Exam: Positive: Clear to auscultation, Normal air movement, Rhonchi (RUL) , Negative: Diminished, Wheezing Heart Exam: Positive: Normal S2, Rate Normal Telemetry: Positive: No significant arrhythmia Abdomen Exam: Positive: Normal bowel sounds, Soft, Negative: Hepatospenomegaly, Tenderness Extremity Exam: Negative: Clubbing, Edema Psych Exam: Positive: Other (intellectual deficiency ) Vital Signs/I&O Vital Signs Date Time Temp Pulse Resp B/P Pulse Ox O2 Delivery O2 Flow Rate FiO2 06/05/16 11:13 104 26 90 Nasal Cannula 5.0 06/05/16 08:00 98.7 115/58 06/04/16 14:45 50 I&O- Last 24 Hours up to 6 AM 06/05/16 06:00 Intake Total 2475 ml Output Total 800 ml Balance 1675 ml Laboratory Data Labs 24H Laboratory Tests 2 06/04/16 15:57: Creatine Kinase MB 1.5, Creatine Kinase MB Relative Index 2.58, Lactic Acid Level 1.4, Total Creatine Kinase 58, Troponin I 0.04 06/04/16 17:50: Bedside Glucose (Misc Panel) 156H 06/04/16 23:54: Bedside Glucose (Misc Panel) 92 06/05/16 04:15: Anion Gap 8, C-Reactive Protein, Quantitative 11.20H, Blood Urea Nitrogen 15, Creatinine 0.84, Sodium Level 141, Potassium Level 3.8, Chloride Level 106, Carbon Dioxide Level 27, Calcium Level 7.6L, Glomerular Filtration Rate > 60.0, Magnesium Level 1.6L 06/05/16 05:12: Bedside Glucose (Misc Panel) 145H 06/05/16 11:38: Bedside Glucose (Misc Panel) 134H CBC/BMP Laboratory Tests 06/05/16 04:15 Calcium Level 7.6 L, Red Blood Count 3.43 L, Mean Corpuscular Volume 93.6, Mean Corpuscular Hemoglobin 30.7, Mean Corpuscular Hemoglobin Concent 32.8, Red Cell Distribution Width 16.1 H Microbiology Microbiology 06/04/16 Blood Culture - Preliminary, Resulted No growth after 24 hours . All specim... 06/04/16 Blood Culture - Preliminary, Resulted No growth after 24 hours . All specim... 06/04/16 Urine Culture, Received Pending GME ATTESTATION GME ATTESTATION My preceptor for this patient encounter was physically present in the building during the encounter and was fully available. As needed, all aspects of the patient interview, examination, medical decision making process, and medical care plan development were reviewed and approved by the preceptor. Preceptor is aware and concurs with the plan as stated in the body of this note and will attest to such by his/her cosignature. GME ATTESTATION GME ATTESTATION My preceptor for this patient encounter was physically present in the building during the encounter and was fully available. As needed, all aspects of the patient interview, examination, medical decision making process, and medical care plan development were reviewed and approved by the preceptor. Preceptor is aware and concurs with the plan as stated in the body of this note and will attest to such by his/her cosignature. ATTENDING NOTE Attending Note I, Pedro Magdaleno, have both independently examined this patient as well as reviewed the documentation. I have discussed in detail with the resident the findings and plan of treatment as documented in the residents documentation. I will continue to follow the patient and offer further guidance to the patients care as necessary during this hospital stay. MISAEL HOWARD OGME-1 Jun 05, 2016 12:43 PEDRO MAGDALENO MD Jun 14, 2016 17:11
--- NOTE | 2016-06-05 13:34 | REP ---
Clinical: Shortness of breath. Comparison: 06/04/2016. Findings: Increasing bilateral lower lobe infiltrates (right greater than left) appreciated. Cardiomegaly and interstitial edema. Cannot exclude layering effusions. No pneumothorax. Nasogastric tube courses below left hemidiaphragm. Impression: Cardiomegaly and interstitial edema. Increasing lower lobe infiltrates (right greater than left). Signed by Steven Rossi MD 06/05/2016 01:25 P
[2016-06-05] MEDS ORDERED: FUROSEMIDE 20 MG/2 ML VIAL (J1940) IV ONE (14:00)
[2016-06-05 14:09] LABS: ABG BASE EXCESS 4.9 (-2.0-2.0); ABG HCO3 29.4 MEQ/L (22.0-26.0); ABG PARTIAL PRESSURE CO2 43.3 mmHg (35.0-45.0); ABG PARTIAL PRESSURE O2 135.6 mmHg (75.0-100.0); ABG STANDARD HCO3 28.9 MEQ/L (22.0-26.0); ABG TOTAL CO2 30.7 MEQ/L (23.0-31.0)
[2016-06-05] MEDS: OLANZapine 5 MG TAB NG SCH (20:37)
[2016-06-06] VITALS (9 sets, daily range): BP systolic 104–153; BP diastolic 46–66
[2016-06-06] MEDS: PIPERACILLIN/TAZOBACTAM SOD 3.375 GM in D5W MINI-BAG PLUS 50 ML IV SCH ×3 (01:03→16:52)
[2016-06-06] MEDS: IPRATROPIUM 0.5MG/ALBUTEROL 2.5MG INH SOL UD 3ML (DUONEB)(J7620) NEB SCH ×4 (01:28→19:15)
[2016-06-06] MEDS: VANCOMYCIN HCL 1,000 MG, VIAL MATE ADAPTER 1 EACH in D5W 250 ML IV SCH ×2 (03:35→16:53)
[2016-06-06 05:04] LABS: MEAN CORPUSCULAR HEMOGLOBIN 31.3 pg (27.0-33.0); MEAN CORPUSCULAR HGB CONC 33.9 g/dl (32.0-36.5); MEAN CORPUSCULAR VOLUME 92.3 fl (80.0-96.0); RED CELL DISTRIBUTION WIDTH 16.1 % (11.5-14.5); WHITE BLOOD COUNT 6.6 K/mm3 (4.0-10.0)
[2016-06-06 05:18] LABS: ANION GAP 9 MEQ/L (8-16); BLOOD UREA NITROGEN 13 MG/DL (7-18); CARBON DIOXIDE LEVEL 30 MEQ/L (21-32); CHLORIDE LEVEL 101 MEQ/L (98-107); CREATININE FOR GFR 0.89 MG/DL (0.70-1.30); GLOMERULAR FILTRATION RATE > 60.0 (>49); GLUCOSE, FASTING 185 MG/DL (80-110); MAGNESIUM LEVEL 1.9 MG/DL (1.8-2.4); POTASSIUM SERUM 3.5 MEQ/L (3.5-5.1); SODIUM LEVEL 140 MEQ/L (136-145)
[2016-06-06] MEDS: SINEMET 25-100 MG TAB NG SCH ×3 (05:59→18:26)
[2016-06-06] MEDS: HumaLOG INSULIN (NovoLOG) PER UNIT SC SCH ×4 (06:00→17:02)
[2016-06-06] MEDS: SLF 3 ML SYR IV SCH ×3 (06:00→21:46)
[2016-06-06] MEDS: ENOXAPARIN 40 MG/0.4 ML SYRINGE (J1650) SC SCH (09:30)
[2016-06-06] MEDS: MIRALAX *UNIT DOSE* 17GM PACKET TF SCH (09:30)
[2016-06-06] MEDS: PANTOPRAZOLE 40MG INJ (PROTONIX) (C9113) IV SCH (09:30)
[2016-06-06] MEDS: PARoxetine 20 MG TAB NG SCH (09:30)
[2016-06-06] MEDS: SENOKOT S TAB NG SCH ×2 (09:30→21:44)
--- NOTE | 2016-06-06 13:57 | IPNPDOC ---
Assessment/Plan Date Seen The patient was seen on 06/06/16. Problems Problems: (1) Sepsis Status: Acute Response to Treatment: Stable Problem Text: aspiration pneumonia pt on zosyn and vancomycin abx therapy (2) Aspiration pneumonia Status: Acute Response to Treatment: Stable Problem Text: swallow study done recommended PEG tube surgery consulted will continue with NG tube feeding for now. (3) Acute respiratory failure with hypoxemia Status: Acute Problem Text: due to aspiration pneumonia and asthma exacerbation continue nebs, antibiotics. (4) Diarrhea Status: Resolved Problem Text: c diff negative. (5) Asthma Status: Chronic Response to Treatment: Stable Problem Text: Nebulizer treatments ordered Pt is not wheezing currently continue to monitor (6) BPH (benign prostatic hyperplasia) Status: Chronic Response to Treatment: Stable Problem Text: continue home medications (7) Parkinson's disease Status: Chronic Problem Text: medications per NG tube (8) DM2 (diabetes mellitus, type 2) Status: Chronic Response to Treatment: Stable Problem Text: diet controlled non insulin dependent will monitor finger sticks insulin as needed (9) Dyslipidemia Status: Chronic Response to Treatment: Stable (10) Down's syndrome Status: Chronic Problem Text: JRC pt continue with home medications. Plan / VTE VTE Prophylaxis Ordered?: Yes Subjective Review of Systems CC/HPI The patient is a 61-year-old male admitted with a reason for visit of Aspiration Pneumonia,Sepsis. Events since last encounter patient nonverbal at baseline, open eyes when spoken too and smiles , makes some simple noises. no discomfort noted , was sleeping without any discomfort. Objective Physical Examination General Exam: Positive: No Acute Distress, Negative: Alert (pt is sleeping and arousable to voice, unfortunately most of the exam consisted of him grunting and crying out but not making sense with his communication due to his baseline intellectual deficiency ), Cooperative Eye Exam: Positive: Conjunctiva & lids normal, PERRLA, Negative: Ptosis, Sclera icteric ENT Exam: Positive: Atraumatic, Mucous membr. moist/pink Neck Exam: Positive: Supple Chest Exam: Positive: Clear to auscultation, Normal air movement, Rhonchi (RUL) , Negative: Diminished, Wheezing Heart Exam: Positive: Normal S2, Rate Normal Telemetry: Positive: No significant arrhythmia Abdomen Exam: Positive: Normal bowel sounds, Soft, Negative: Hepatospenomegaly, Tenderness Extremity Exam: Negative: Clubbing, Edema Psych Exam: Positive: Other (intellectual deficiency ) Vital Signs/I&O Vital Signs Date Time Temp Pulse Resp B/P Pulse Ox O2 Delivery O2 Flow Rate FiO2 06/06/16 12:00 Nasal Cannula 3.0 06/06/16 12:00 98.2 97 122/59 94 06/06/16 08:00 22 06/06/16 06:00 50 I&O- Last 24 Hours up to 6 AM 06/06/16 06:00 Intake Total 1430 ml Output Total 3315 ml Balance -1885 ml Laboratory Data Labs 24H Laboratory Tests 2 06/05/16 17:26: Bedside Glucose (Misc Panel) 150H 06/06/16 00:01: Bedside Glucose (Misc Panel) 94 06/06/16 04:34: Anion Gap 9, C-Reactive Protein, Quantitative 13.60H, Blood Urea Nitrogen 13, Creatinine 0.89, Sodium Level 140, Potassium Level 3.5, Chloride Level 101, Carbon Dioxide Level 30, Calcium Level 8.0L, Glomerular Filtration Rate > 60.0, Magnesium Level 1.9 06/06/16 05:54: Bedside Glucose (Misc Panel) 168H 06/06/16 11:26: Bedside Glucose (Misc Panel) 109 CBC/BMP Laboratory Tests 06/06/16 04:34 Calcium Level 8.0 L, Red Blood Count 3.36 L, Mean Corpuscular Volume 92.3, Mean Corpuscular Hemoglobin 31.3, Mean Corpuscular Hemoglobin Concent 33.9, Red Cell Distribution Width 16.1 H Microbiology Microbiology 06/04/16 Blood Culture - Preliminary, Resulted No Growth after 48 hours. All Specime... 06/04/16 Blood Culture - Preliminary, Resulted No Growth after 48 hours. All Specime... 06/06/16 Gastrointestinal Tract Panel (PCR) - Final, Complete 06/06/16 MRSA Screen, Received Pending 06/04/16 Urine Culture - Final, Complete NANDINI VILLAVICENCIO MD Jun 06, 2016 13:57
--- NOTE | 2016-06-06 15:28 | EDDOCDS ---
Physician Documentation [facility] Name: Baldemar Jones Age: 61 yrs Sex: Male : 1955 Arrival Date: 06/04/2016 Time: 09:22 Bed 3 Private MD: Gerri High Disposition: 06/04 12:32 Critical Care:. pc Disposition: 06/04/16 12:35 Hospitalization ordered by Asuncion Saavedra for Inpatient Admission. Preliminary diagnosis are Sepsis, unspecified organism, Bronchopneumonia, unspecified organism - multifocal , Hypotension - resolved . - Bed requested for ICU. - Status is Inpatient Admission. bcj - Condition is Stable. - Problem is new. - Symptoms have improved. HPI: 09:46 This 61 yrs old Male presents to ER via Ambulance with complaints of pc Shortness Of Breath. 09:46 The history is obtained from [facility] staff. A reliable history and/or examination was not pc able to be obtained, due to patient's Down's syndrome with severe disabilities . Per staff, he has had low O2 sats through the night, 75-80%, prompting EMS being called. He arrives with sats if 91% on a NRB. No cough is described, no fevers. He did have a bout of diarrhea once through the night. He is reported to have recurrent aspiration pneumonia but his swallowing test was normal. The patient has experienced similar episodes in the past, multiple times. The patient has been recently been admitted at [facility], was discharged last week, for similar complaints. Historical: - Allergies: No known drug Allergies; - Home Meds: 1. Miralax 17 gram/dose Oral powd once daily (Last dose: Unknown) 2. paroxetine HCl 20 mg Oral tab once daily (Last dose: Unknown) 3. Zyprexa 5 mg Oral tab 1 tab once daily (Last dose: 06/03/2016) 4. Sinemet 25-100 mg Oral tab 1 tab 3 times per day (Last dose: Unknown) 5. albuterol sulfate 2.5 mg /3 mL (0.083 %) inhalation nebu 3 mL 4 times per day (Last dose: Unknown) 6. atorvastatin 40 mg oral tab 1 tab once daily (Last dose: Unknown) 7. Flomax 0.4 mg Oral cp24 1 cap once daily (Last dose: Unknown) 8. Diabetic Tussin DM 10-100 mg/5 mL oral syrp every 6 hours (Last dose: Unknown) 9. Tylenol 325 mg Oral tab 2 tabs every 6 hours (Last dose: 06/04/2016 04:00) 10. oxygen 2 liters NC nightly (Last dose: Unknown) 11. Senna-S 8.6-50 mg oral tab prn (Last dose: Unknown) 12. Lipitor 40 mg Oral tab once daily - PMHx: Asthma; BPH; Diabetes - NIDDM: controlled; Down's Syndrome; Hypercholesterolemia; Parkinson's Disease; - PSHx: none; - The history from nurses notes was reviewed: and I agree with what is documented. - Social history: Smoking status: Patient states was never smoker of tobacco. non-verbal. - : The pt / caregiver states he / she is not on anticoagulants. Home medication list is obtained from the facility AUG. - Exposure Risk Screening:: None identified. - Immunization history:: All immunizations up-to-date. - Family history: Not pertinent. - Social history:: the patient is a non-smoker, resides at a [facility]. ROS: 09:46 All systems are negative except as listed. pc Exam: 09:54 General Appearance: alert, the patient is in mild distress. pc 09:54 EENT: normal eye inspection, ears, nose and throat normal, pharynx normal, mucous membranes moist 09:54 Neck: The exam reveals no acute abnormalities. ROM is normal and painless. No nuchal rigidity is noted.. 09:54 Respiratory: Mild respiratory distress noted. Respirations/effort: shallow respirations, tachypnea, Breath sounds: rhonchi, wheezing, throughout, Decreased breath sounds, in the left posterior lower lobe and right posterior lower lobe. 09:54 CVS: regular rhythm, normal S1 and S2, no murmurs, strong peripheral pulses, normal capillary refill, the patient is tachycardic, at 102 bpm. 09:54 Abdomen: soft, non-tender, no organomegaly, normal bowel sounds. 09:54 Back: normal inspection. 09:54 Skin: skin color is normal, warm, dry, the skin turgor is good. 09:54 Extremities: The extremities have a grossly normal appearance. 09:54 Neuro: Mentation: lucid. Vital Signs: 09:35 Pulse 102; Resp 18; Pulse Ox 81% on R/A; af2 09:38 Pulse Ox 94% on 15% Non-rebreather mask; af2 09:47 BP 110 / 68 LA (man/); Temp 101.0(R); af2 10:03 BP 88 / 52 LA (man/); Resp 22 S; af2 10:24 BP 92 / 50 LA (man/); af2 10:39 Weight 61 kg / 134.48 lbs (M); af2 10:43 BP 118 / 56 (auto/); af2 10:43 Pulse 72 MON; Resp 20 S; Pulse Ox 94% on 50% Venturi mask; af2 10:44 BP 100 / 55 (auto/); af2 10:44 Pulse 83 MON; Resp 20; Pulse Ox 94% on 50% Venturi mask; af2 11:00 BP 116 / 59 (auto/); af2 11:00 Pulse 98 MON; Resp 22 S; Pulse Ox 92% on 50% Venturi mask; af2 11:15 BP 111 / 58 (auto/); af2 11:15 Pulse 93 MON; Resp 20 S; Pulse Ox 93% on Venturi mask; af2 11:45 BP 114 / 56 (auto/); af2 11:49 Pulse 93 MON; Resp 18 S; Pulse Ox 95% on 50% Venturi mask; af2 12:00 BP 101 / 53 (auto/); af2 12:00 Pulse 80 MON; Resp 18 S; Pulse Ox 91% on 50% Venturi mask; af2 12:15 BP 99 / 56 (auto/); af2 12:15 Pulse 79 MON; Resp 20 S; Pulse Ox 93% on 50% Venturi mask; af2 12:25 Temp 99.1(R); ls3 12:30 BP 112 / 58 (auto/); af2 12:30 Pulse 86 MON; Resp 20 S; Pulse Ox 98% on Venturi mask; af2 12:45 BP 121 / 59 (auto/); af2 12:45 Pulse 81 MON; Resp 20 S; Pulse Ox 94% on 50% Venturi mask; af2 13:00 BP 112 / 55 (auto/); af2 13:00 Pulse 79 MON; Resp 20; Pulse Ox 95% on 50% Venturi mask; af2 13:15 BP 101 / 53 (auto/); af2 13:15 Pulse 76 MON; Resp 20 S; Pulse Ox 96% on 50% Venturi mask; af2 13:30 BP 107 / 54 (auto/); af2 13:30 Pulse 75 MON; Resp 20 S; Pulse Ox 97% on 50% Venturi mask; af2 13:45 BP 105 / 54 (auto/); af2 13:45 Pulse 77 MON; Resp 20 S; Pulse Ox 96% on 50% Venturi mask; af2 14:00 BP 110 / 58 (auto/); af2 14:00 Pulse 74 MON; Resp 20 S; Pulse Ox 96% on 50% Venturi mask; af2 14:15 BP 134 / 60 (auto/); af2 14:15 Pulse 79 MON; Resp 18; Pulse Ox 97% on 50% Venturi mask; af2 MDM: 09:31 -Blood Culture (Adults Only), peripheral from different site, or from device/port/PICC pc etc. if present ordered. 09:31 Boiler Riveter/Pulse Ox/q 15 min VS ordered. pc 09:31 IV Saline Lock ordered. pc 09:31 Oxygen at 4L/Min NC or Home dosage ordered. pc 09:31 Rhythm Strip to chart ordered. pc 09:31 Call Respiratory ordered. pc 09:32 Call Respiratory complete. ar3 09:32 B-Type Natiuretic Peptide Ordered. EDMS 09:32 -Blood Culture (Adults Only), peripheral from different site, or from device/port/PICC ar3 etc. if present complete. 09:32 Basic Metabolic Profile Ordered. EDMS 09:32 CBC with Diff Ordered. EDMS 09:33 Cardiac Injury Profile Ordered. EDMS 09:33 Troponin Ordered. EDMS 09:33 -Arterial Blood Gas Ordered. EDMS 09:33 -Blood Culture Ordered. EDMS 09:33 Chest, 1 View Ordered. EDMS 09:33 ECG WITH READING ER PHYS+CARDIAG ordered. EDMS 09:33 Lactic Acid ([place] tube on ice) Ordered. EDMS 09:34 BLOOD CULTURES Ordered. EDMS 09:54 Acetaminophen Tablet 650 mg PO once ordered. pc 09:54 Differential Diagnosis: hypoxia with history of recurrent pneumonia; advanced pc Parkinson's and Down's. Plan: labs, meds, imagineg. 09:56 Financial registration complete. lg 09:57 -Arterial Blood Gas Reviewed. pc 10:[address] [facility] Payment Agreement was scanned into Access Closure and attached to record. lg 10:23 DIFFERENTIAL NO CHARGE Ordered. EDMS 10:23 PLATELET ESTIMATE Ordered. EDMS 10:27 Large bore IV x 2 ordered. pc 10:27 Intake and Output Hourly ordered. pc 10:27 Forrester ordered. pc 10:28 Amylase Ordered. EDMS 10:28 C Reactive Protein Ordered. EDMS 10:28 Liver Profile Ordered. EDMS 10:28 PT/INR Ordered. EDMS 10:28 PTT Ordered. EDMS 10:28 Type & Screen Ordered. EDMS 10:28 Urinalysis Ordered. EDMS 10:28 Urine Culture Ordered. EDMS 10:30 Test interpretation: EKG. pc 10:30 Data reviewed: old medical records, vital signs, nurses notes, EKG(s), lab test pc results, all radiology studies and available results. Test interpretation: Arterial blood gas is normal except. pO2: 117. 10:42 Cefepime 2 grams IVPB at 100 mL/hr once over 30 mins; dilute in 50mL of NS or D5W pc ordered. 10:42 NS 0.9% (Sepsis- hypotension or lactate >4mmol/L, 30ml/kg) 1800 ml IV at bolus once; pc Give in 500mL aliquots, assess for rales after each, inform provider ordered. 10:42 B-Type Natiuretic Peptide Reviewed. pc 10:42 Basic Metabolic Profile Reviewed. pc 10:42 CBC with Diff Reviewed. pc 10:42 Lactic Acid ([place] tube on ice) Reviewed. pc 10:42 Cardiac Injury Profile Reviewed. pc 10:42 Troponin Reviewed. pc 10:42 Chest, 1 View Reviewed. pc 11:08 CT Chest Without Contrast Ordered. EDMS 11:19 CBC with Diff Reviewed. pc 11:19 C Reactive Protein Reviewed. pc 11:19 Liver Profile Reviewed. pc 11:19 PT/INR Reviewed. pc 11:19 PLATELET ESTIMATE Reviewed. pc 11:19 Amylase Reviewed. pc 11:19 PTT Reviewed. pc 11:19 Type & Screen Reviewed. pc 11:19 Urinalysis Reviewed. pc 11:22 BED REQUEST+ADM ordered. EDMS 12:02 Type & Screen Reviewed. pc 12:23 CARDIAC MARKER PANEL Ordered. EDMS 12:23 LACTIC ACID LEVEL, LACTATE Ordered. EDMS 12:24 SPUTUM CULTURE AND GRAM STAIN Ordered. EDMS 12:26 GASTROINTESTINAL (GI) PANEL Ordered. EDMS 12:32 MRSA SCREEN Ordered. EDMS 12:32 Test interpretation: X-RAY - interpreted by Radiologist and personally reviewed, 1 view pc chest perihilar infiltrates v edema interpreted by Radiologist and personally reviewed, Chest CT; multifocal pneumonia . The patient has been re-examined and re-evaluated. The patient's symptoms have markedly improved after treatment. Physician consultation: Dr. Asuncion Saavedra regarding admission. Disposition: The historical points, examination findings, and any diagnostic results supporting the provided diagnosis, were discussed with the patient or legal guardian. The need for further work-up and/or treatment in the hospital was explained. 12:34 Admission / Observation Status ordered. EDMS 12:34 NPO DIET ordered. EDMS 13:53 MRSA SCREEN Ordered. EDMS 14:19 Chest, 1 view Ordered. EDMS 06/05 10:49 ECG/EKG was scanned into Access Cl[employer] and attached to record. 10:50 Trend VS was scanned into Access Closure and attached to record. EC/25 10:30 Rate is 99 beats/min. Rhythm is regular, Normal Sinus Rhythm. QRS [place] is Normal. ID pc interval is prolonged at 213 msec. QRS interval is prolonged at 141 msec. QT interval is normal. No Q waves. T waves are Normal. No ST changes noted. Clinical impression: Normal Sinus Rhythm, LBBB, and 1st degree heart block. No change from previous ECG on May 19, 2016. Administered Medications: 10:14 Drug: Acetaminophen 650 mg [acetaminophen 325 mg tablet (2 tabs)] {Note: crushed in af2 apple sauce..} Route: PO; 11:12 Drug: Cefepime 2 grams [cefepime 2 gram solution for injection] Route: IVPB; Rate: 100 af2 mL/hr; Infused Over: 30 mins; Site: right antecubital; 11:13 Drug: NS 0.9% (Sepsis- hypotension or lactate >4mmol/L, 30ml/kg) 1800 ml [sodium af2 chloride 0.9 % intravenous solution] {Note: 1st 500cc started at this time..} Route: IV; Rate: bolus; Site: left forearm; 12:35 Follow up: IV Status: Completed infusion; IV Intake: 500ml jf3 Critical Care Time: 12:32 Critical care time: Bedside Care: 35 minutes, Consultation: 10 minutes, [facility] Staff pc intervention: 20 minutes. Total time: 65 minutes Signatures: Dispatcher [employer] EDBlake Ramos MD MD pc Johnson, Bruce, RN RN Barbie Ocasio, Reg Reg gb Merrill, Darshana, Reg Reg lg Kacy Angelica, BOLT THREADER BOLT THREADER ar3 Zo Ahuja RN RN [id number] Melody Stuart RN RN af2 Gilbert Mandel RN jf3 The chart was reviewed and I authenticate all verbal orders and agree with the evaluation and treatment provided.Corrections: (The following items were deleted from the chart) 12:25 12:24 GASTROINTESTINAL (GI) PANEL ordered. EDMS EDMS 14:05 12:30 Cookie Swallow Mod.Ba Swallow ordered. EDMS EDMS 14:26 12:30 Chest, 1 view ordered. EDMS EDMS Attachments: 10:17 [facility] Payment Agreement 06/05 10:49 ECG/EKG gb Chart [facility]
--- NOTE | 2016-06-06 15:28 | EDDOCDS ---
Physician Documentation [facility] Name: Baldemar Jones Age: 61 yrs Sex: Male : 1955 Arrival Date: 06/04/2016 Time: 09:22 Bed 3 Private MD: Gerri High Disposition: 06/04 12:32 Critical Care:. pc Disposition: 06/04/16 12:35 Hospitalization ordered by Asuncion Saavedra for Inpatient Admission. Preliminary diagnosis are Sepsis, unspecified organism, Bronchopneumonia, unspecified organism - multifocal , Hypotension - resolved . - Bed requested for ICU. - Status is Inpatient Admission. bcj - Condition is Stable. - Problem is new. - Symptoms have improved. HPI: 09:46 This 61 yrs old Male presents to ER via Ambulance with complaints of pc Shortness Of Breath. 09:46 The history is obtained from [facility] staff. A reliable history and/or examination was not pc able to be obtained, due to patient's Down's syndrome with severe disabilities . Per staff, he has had low O2 sats through the night, 75-80%, prompting EMS being called. He arrives with sats if 91% on a NRB. No cough is described, no fevers. He did have a bout of diarrhea once through the night. He is reported to have recurrent aspiration pneumonia but his swallowing test was normal. The patient has experienced similar episodes in the past, multiple times. The patient has been recently been admitted at [facility], was discharged last week, for similar complaints. Historical: - Allergies: No known drug Allergies; - Home Meds: 1. Miralax 17 gram/dose Oral powd once daily (Last dose: Unknown) 2. paroxetine HCl 20 mg Oral tab once daily (Last dose: Unknown) 3. Zyprexa 5 mg Oral tab 1 tab once daily (Last dose: 06/03/2016) 4. Sinemet 25-100 mg Oral tab 1 tab 3 times per day (Last dose: Unknown) 5. albuterol sulfate 2.5 mg /3 mL (0.083 %) inhalation nebu 3 mL 4 times per day (Last dose: Unknown) 6. atorvastatin 40 mg oral tab 1 tab once daily (Last dose: Unknown) 7. Flomax 0.4 mg Oral cp24 1 cap once daily (Last dose: Unknown) 8. Diabetic Tussin DM 10-100 mg/5 mL oral syrp every 6 hours (Last dose: Unknown) 9. Tylenol 325 mg Oral tab 2 tabs every 6 hours (Last dose: 06/04/2016 04:00) 10. oxygen 2 liters NC nightly (Last dose: Unknown) 11. Senna-S 8.6-50 mg oral tab prn (Last dose: Unknown) 12. Lipitor 40 mg Oral tab once daily - PMHx: Asthma; BPH; Diabetes - NIDDM: controlled; Down's Syndrome; Hypercholesterolemia; Parkinson's Disease; - PSHx: none; - The history from nurses notes was reviewed: and I agree with what is documented. - Social history: Smoking status: Patient states was never smoker of tobacco. non-verbal. - : The pt / caregiver states he / she is not on anticoagulants. Home medication list is obtained from the facility AUG. - Exposure Risk Screening:: None identified. - Immunization history:: All immunizations up-to-date. - Family history: Not pertinent. - Social history:: the patient is a non-smoker, resides at a care home. ROS: 09:46 All systems are negative except as listed. pc Exam: 09:54 General Appearance: alert, the patient is in mild distress. pc 09:54 EENT: normal eye inspection, ears, nose and throat normal, pharynx normal, mucous membranes moist 09:54 Neck: The exam reveals no acute abnormalities. ROM is normal and painless. No nuchal rigidity is noted.. 09:54 Respiratory: Mild respiratory distress noted. Respirations/effort: shallow respirations, tachypnea, Breath sounds: rhonchi, wheezing, throughout, Decreased breath sounds, in the left posterior lower lobe and right posterior lower lobe. 09:54 CVS: regular rhythm, normal S1 and S2, no murmurs, strong peripheral pulses, normal capillary refill, the patient is tachycardic, at 102 bpm. 09:54 Abdomen: soft, non-tender, no organomegaly, normal bowel sounds. 09:54 Back: normal inspection. 09:54 Skin: skin color is normal, warm, dry, the skin turgor is good. 09:54 Extremities: The extremities have a grossly normal appearance. 09:54 Neuro: Mentation: lucid. Vital Signs: 09:35 Pulse 102; Resp 18; Pulse Ox 81% on R/A; af2 09:38 Pulse Ox 94% on 15% Non-rebreather mask; af2 09:47 BP 110 / 68 LA (man/); Temp 101.0(R); af2 10:03 BP 88 / 52 LA (man/); Resp 22 S; af2 10:24 BP 92 / 50 LA (man/); af2 10:39 Weight 61 kg / 134.48 lbs (M); af2 10:43 BP 118 / 56 (auto/); af2 10:43 Pulse 72 MON; Resp 20 S; Pulse Ox 94% on 50% Venturi mask; af2 10:44 BP 100 / 55 (auto/); af2 10:44 Pulse 83 MON; Resp 20; Pulse Ox 94% on 50% Venturi mask; af2 11:00 BP 116 / 59 (auto/); af2 11:00 Pulse 98 MON; Resp 22 S; Pulse Ox 92% on 50% Venturi mask; af2 11:15 BP 111 / 58 (auto/); af2 11:15 Pulse 93 MON; Resp 20 S; Pulse Ox 93% on Venturi mask; af2 11:45 BP 114 / 56 (auto/); af2 11:49 Pulse 93 MON; Resp 18 S; Pulse Ox 95% on 50% Venturi mask; af2 12:00 BP 101 / 53 (auto/); af2 12:00 Pulse 80 MON; Resp 18 S; Pulse Ox 91% on 50% Venturi mask; af2 12:15 BP 99 / 56 (auto/); af2 12:15 Pulse 79 MON; Resp 20 S; Pulse Ox 93% on 50% Venturi mask; af2 12:25 Temp 99.1(R); ls3 12:30 BP 112 / 58 (auto/); af2 12:30 Pulse 86 MON; Resp 20 S; Pulse Ox 98% on Venturi mask; af2 12:45 BP 121 / 59 (auto/); af2 12:45 Pulse 81 MON; Resp 20 S; Pulse Ox 94% on 50% Venturi mask; af2 13:00 BP 112 / 55 (auto/); af2 13:00 Pulse 79 MON; Resp 20; Pulse Ox 95% on 50% Venturi mask; af2 13:15 BP 101 / 53 (auto/); af2 13:15 Pulse 76 MON; Resp 20 S; Pulse Ox 96% on 50% Venturi mask; af2 13:30 BP 107 / 54 (auto/); af2 13:30 Pulse 75 MON; Resp 20 S; Pulse Ox 97% on 50% Venturi mask; af2 13:45 BP 105 / 54 (auto/); af2 13:45 Pulse 77 MON; Resp 20 S; Pulse Ox 96% on 50% Venturi mask; af2 14:00 BP 110 / 58 (auto/); af2 14:00 Pulse 74 MON; Resp 20 S; Pulse Ox 96% on 50% Venturi mask; af2 14:15 BP 134 / 60 (auto/); af2 14:15 Pulse 79 MON; Resp 18; Pulse Ox 97% on 50% Venturi mask; af2 MDM: 09:31 -Blood Culture (Adults Only), peripheral from different site, or from device/port/PICC pc etc. if present ordered. 09:31 Tractor Mechanic Apprentice/Pulse Ox/q 15 min VS ordered. pc 09:31 IV Saline Lock ordered. pc 09:31 Oxygen at 4L/Min NC or Home dosage ordered. pc 09:31 Rhythm Strip to chart ordered. pc 09:31 Call Respiratory ordered. pc 09:32 Call Respiratory complete. ar3 09:32 B-Type Natiuretic Peptide Ordered. EDMS 09:32 -Blood Culture (Adults Only), peripheral from different site, or from device/port/PICC ar3 etc. if present complete. 09:32 Basic Metabolic Profile Ordered. EDMS 09:32 CBC with Diff Ordered. EDMS 09:33 Cardiac Injury Profile Ordered. EDMS 09:33 Troponin Ordered. EDMS 09:33 -Arterial Blood Gas Ordered. EDMS 09:33 -Blood Culture Ordered. EDMS 09:33 Chest, 1 View Ordered. EDMS 09:33 ECG WITH READING ER PHYS+CARDIAG ordered. EDMS 09:33 Lactic Acid (Pickering tube on ice) Ordered. EDMS 09:34 BLOOD CULTURES Ordered. EDMS 09:54 Acetaminophen Tablet 650 mg PO once ordered. pc 09:54 Differential Diagnosis: hypoxia with history of recurrent pneumonia; advanced pc Parkinson's and Down's. Plan: labs, meds, imagineg. 09:56 Financial registration complete. lg 09:57 -Arterial Blood Gas Reviewed. pc 10:17 [place] [place] Payment Agreement was scanned into [employer] and attached to record. lg 10:23 DIFFERENTIAL NO CHARGE Ordered. EDMS 10:23 PLATELET ESTIMATE Ordered. EDMS 10:27 Large bore IV x 2 ordered. pc 10:27 Intake and Output Hourly ordered. pc 10:27 Forrester ordered. pc 10:28 Amylase Ordered. EDMS 10:28 C Reactive Protein Ordered. EDMS 10:28 Liver Profile Ordered. EDMS 10:28 PT/INR Ordered. EDMS 10:28 PTT Ordered. EDMS 10:28 Type & Screen Ordered. EDMS 10:28 Urinalysis Ordered. EDMS 10:28 Urine Culture Ordered. EDMS 10:30 Test interpretation: EKG. pc 10:30 Data reviewed: old medical records, vital signs, nurses notes, EKG(s), lab test pc results, all radiology studies and available results. Test interpretation: Arterial blood gas is normal except. pO2: 117. 10:42 Cefepime 2 grams IVPB at 100 mL/hr once over 30 mins; dilute in 50mL of NS or D5W pc ordered. 10:42 NS 0.9% (Sepsis- hypotension or lactate >4mmol/L, 30ml/kg) 1800 ml IV at bolus once; pc Give in 500mL aliquots, assess for rales after each, inform provider ordered. 10:42 B-Type Natiuretic Peptide Reviewed. pc 10:42 Basic Metabolic Profile Reviewed. pc 10:42 CBC with Diff Reviewed. pc 10:42 Lactic Acid (Pickering tube on ice) Reviewed. pc 10:42 Cardiac Injury Profile Reviewed. pc 10:42 Troponin Reviewed. pc 10:42 Chest, 1 View Reviewed. pc 11:08 CT Chest Without Contrast Ordered. EDMS 11:19 CBC with Diff Reviewed. pc 11:19 C Reactive Protein Reviewed. pc 11:19 Liver Profile Reviewed. pc 11:19 PT/INR Reviewed. pc 11:19 PLATELET ESTIMATE Reviewed. pc 11:19 Amylase Reviewed. pc 11:19 PTT Reviewed. pc 11:19 Type & Screen Reviewed. pc 11:19 Urinalysis Reviewed. pc 11:22 BED REQUEST+ADM ordered. EDMS 12:02 Type & Screen Reviewed. pc 12:23 CARDIAC MARKER PANEL Ordered. EDMS 12:23 LACTIC ACID LEVEL, LACTATE Ordered. EDMS 12:24 SPUTUM CULTURE AND GRAM STAIN Ordered. EDMS 12:26 GASTROINTESTINAL (GI) PANEL Ordered. EDMS 12:32 MRSA SCREEN Ordered. EDMS 12:32 Test interpretation: X-RAY - interpreted by Radiologist and personally reviewed, 1 view pc chest perihilar infiltrates v edema interpreted by Radiologist and personally reviewed, Chest CT; multifocal pneumonia . The patient has been re-examined and re-evaluated. The patient's symptoms have markedly improved after treatment. Physician consultation: Dr. Asuncion Saavedra regarding admission. Disposition: The historical points, examination findings, and any diagnostic results supporting the provided diagnosis, were discussed with the patient or legal guardian. The need for further work-up and/or treatment in the hospital was explained. 12:34 Admission / Observation Status ordered. EDMS 12:34 NPO DIET ordered. EDMS 13:53 MRSA SCREEN Ordered. EDMS 14:19 Chest, 1 view Ordered. EDMS 06/05 10:49 ECG/EKG was scanned into [employer] and attached to record. 10:50 Trend VS was scanned into [employer] and attached to record. EC/25 10:30 Rate is 99 beats/min. Rhythm is regular, Normal Sinus Rhythm. QRS [place] is Normal. GA pc interval is prolonged at 213 msec. QRS interval is prolonged at 141 msec. QT interval is normal. No Q waves. T waves are Normal. No ST changes noted. Clinical impression: Normal Sinus Rhythm, LBBB, and 1st degree heart block. No change from previous ECG on May 19, 2016. Administered Medications: 10:14 Drug: Acetaminophen 650 mg [acetaminophen 325 mg tablet (2 tabs)] {Note: crushed in af2 apple sauce..} Route: PO; 11:12 Drug: Cefepime 2 grams [cefepime 2 gram solution for injection] Route: IVPB; Rate: 100 af2 mL/hr; Infused Over: 30 mins; Site: right antecubital; 11:13 Drug: NS 0.9% (Sepsis- hypotension or lactate >4mmol/L, 30ml/kg) 1800 ml [sodium af2 chloride 0.9 % intravenous solution] {Note: 1st 500cc started at this time..} Route: IV; Rate: bolus; Site: left forearm; 12:35 Follow up: IV Status: Completed infusion; IV Intake: 500ml jf3 Critical Care Time: 12:32 Critical care time: Bedside Care: 35 minutes, Consultation: 10 minutes, [facility] Staff pc intervention: 20 minutes. Total time: 65 minutes Signatures: Dispatcher [employer] EDBlake Ramos MD MD pc Johnson, Bruce, RN RN Barbie Ocasio, Reg Reg gb Merrill, Darshana, Reg Reg lg Kacy Angelica, [employer] ar3 Zo Ahuja RN RN sls2 Melody Stuart RN RN af2 Gilbert Mandel RN jf3 The chart was reviewed and I authenticate all verbal orders and agree with the evaluation and treatment provided.Corrections: (The following items were deleted from the chart) 12:25 12:24 GASTROINTESTINAL (GI) PANEL ordered. EDMS EDMS 14:05 12:30 Cookie Swallow Mod.Ba Swallow ordered. EDMS EDMS 14:26 12:30 Chest, 1 view ordered. EDMS EDMS Attachments: 10:17 ON LICENSE OF [facility] Payment Agreement 06/05 10:49 ECG/EKG gb Chart Complete [facility]
--- NOTE | 2016-06-06 15:29 | EDDOCDS ---
Nurse's Notes [facility] Name: Baldemar Jones Age: 61 yrs Sex: Male : 1955 Arrival Date: 06/04/2016 Time: 09:22 Bed 3 Private MD: Gerri High Diagnosis: Sepsis, unspecified organism;Bronchopneumonia, unspecified organism-multifocal ;Hypotension-resolved Presentation: 06/04 09:31 Presenting complaint: EMS states: low O2, 79-81% on RA upon EMS arrival. pt uses 2L O2 af2 at hs. per [facility] staff pt has been awake all night, diarrhea yesterday. Adult Sepsis Screening: The patient does not have new or worsening altered mentation. Patient's respiratory rate is less than 22. Systolic blood pressure is greater than 100. Patient has a qSOFA score of 1- Negative Sepsis Screen. Patient has cough and/or SOB- Positive Sepsis Screen. Patient made TANESHA Level 2. Patient placed in exam room. Charge nurse notified. Suicide/Homicide risk assessment- Unable to assess, due to patient's chronic mental disability. Status: Patient is not a administrative services director or dependent. Transition of care: patient was received from [facility]. 09:31 Acuity: TANESHA Level 2 af2 09:31 Method Of Arrival: Ambulance af2 Triage Assessment: 09:47 General: Appears ill, Behavior is fussy. Pain: Unable to use pain scale. Does not af2 appear to understand pain scale. HIV screening NA for this visit Offered previously. Respiratory: Onset: The symptoms/episode began/occurred this morning, Airway is patent Respiratory effort is shallow, Parent/caregiver reports the patient having cough that is non-productive, decreased O2 sats. Derm: Skin is pale. Historical: - Allergies: No known drug Allergies; - Home Meds: 1. Miralax 17 gram/dose Oral powd once daily (Last dose: Unknown) 2. paroxetine HCl 20 mg Oral tab once daily (Last dose: Unknown) 3. Zyprexa 5 mg Oral tab 1 tab once daily (Last dose: 06/03/2016) 4. Sinemet 25-100 mg Oral tab 1 tab 3 times per day (Last dose: Unknown) 5. albuterol sulfate 2.5 mg /3 mL (0.083 %) inhalation nebu 3 mL 4 times per day (Last dose: Unknown) 6. atorvastatin 40 mg oral tab 1 tab once daily (Last dose: Unknown) 7. Flomax 0.4 mg Oral cp24 1 cap once daily (Last dose: Unknown) 8. Diabetic Tussin DM 10-100 mg/5 mL oral syrp every 6 hours (Last dose: Unknown) 9. Tylenol 325 mg Oral tab 2 tabs every 6 hours (Last dose: 06/04/2016 04:00) 10. oxygen 2 liters NC nightly (Last dose: Unknown) 11. Senna-S 8.6-50 mg oral tab prn (Last dose: Unknown) 12. Lipitor 40 mg Oral tab once daily - PMHx: Asthma; BPH; Diabetes - NIDDM: controlled; Down's Syndrome; Hypercholesterolemia; Parkinson's Disease; - PSHx: none; - The history from nurses notes was reviewed: and I agree with what is documented. - Social history: Smoking status: Patient states was never smoker of tobacco. non-verbal. - : The pt / caregiver states he / she is not on anticoagulants. Home medication list is obtained from the facility MAR. - Exposure Risk Screening:: None identified. - Immunization history:: All immunizations up-to-date. - Family history: Not pertinent. - Social history:: the patient is a non-smoker, resides at a prison. Screenin:18 Screening information is obtained from the caregiver. Fall risk: At risk due to af2 apparent chemical impairment, The following interventions are performed due to a positive Fall Risk Screen: Fall Risk is added to Special Handling on the patient Summary Screen. A Fall Risk Bracelet was applied to the patient. Side Rails are placed in the up position. A Call Bowens is given with instruction to call for help when getting out of bed. Assistance ADL's: Requires assistance with meal preparation, this assistance is provided by residence staff, bathing, assistance is provided by dressing, assistance is provided by toileting, assistance is provided by ambulation, assistance is provided by housework, assistance is provided by medication administration, assistance is provided by medications crushed in applesauce. Abuse/DV Screen: The patient / caregiver reports he/she is: pt cannot be assessed for living situation at this time. Unable to Assess. Nutritional screening: On diabetic diet, Difficulty chewing/swallowing? Yes nectar thickened . Advance Directives: Currently, there is no health care proxy. home support is adequate. Assessment: 10:15 General: Appears distressed, Behavior is fussy. Pain: Noted to be agitated. af2 Neurological: Level of Consciousness is awake, alert. Cardiovascular: Rhythm is sinus rhythm No ectopy. Respiratory: Airway is patent Respiratory effort is shallow, Breath sounds with rhonchi bilaterally. in right middle lobe and left lower lobe Breath sounds are diminished bilaterally. Parent/caregiver reports the patient having cough that is decreased O2 saturations. GI: Parent/caregiver reports the patient having diarrhea. Derm: Skin is pale. 11:15 General: Appears ill, Behavior is cooperative, 1st 500cc bag of fluids infusing per MD af2 order, will monitor pt and reassess for rales upon completion. [facility] staff at bedside.. Neurological: Level of Consciousness is awake, alert. Respiratory: Airway is patent Respiratory effort is even, unlabored. Respiratory: Breath sounds are diminished bilaterally. Derm: Skin is pale. 11:56 General: Appears ill, Behavior is cooperative, 2nd 500cc NS started at this time. This af2 tech writer assessed breath sounds at this time, no rales noted. Breath sounds continue to be diminished in anterior cuello bilaterally. Will continue to monitor pt.. 12:52 General: Appears ill, Behavior is cooperative. Neurological: Level of Consciousness is af2 awake, alert. Cardiovascular: Rhythm is sinus rhythm No ectopy. Respiratory: Airway is patent Respiratory effort is even, unlabored, Breath sounds with rhonchi bilaterally. 12:55 General: this tech writer contacted hospitalist regarding pt receiving 1000 ml of 1800 ml af2 bolus, bilateral breath sounds contain rales. per hospitalist, change NS to run at 100 ml/hr.. 13:09 General: Report given to GWYN Siddiqui, in ICU. After admission information completed with af2 [facility] staff, she has agreed to assume care of pt.. 13:35 General: admission nurse at bedside.. af2 14:12 General: Appears ill, Behavior is cooperative. Neurological: Level of Consciousness is af2 awake, alert. Respiratory: Airway is patent Respiratory effort is even, unlabored. Respiratory: Parent/caregiver reports the patient having cough that is. GI:. Derm: Skin is pale. 14:16 General: 14Fr NG tube inserted to left nare at this time, pt tolerated well. . af2 Vital Signs: 09:35 Pulse 102; Resp 18; Pulse Ox 81% on R/A; af2 09:38 Pulse Ox 94% on 15% Non-rebreather mask; af2 09:47 BP 110 / 68 LA (man/); Temp 101.0(R); af2 10:03 BP 88 / 52 LA (man/); Resp 22 S; af2 10:24 BP 92 / 50 LA (man/); af2 10:39 Weight 61 kg (M); af2 10:43 BP 118 / 56 (auto/); af2 10:43 Pulse 72 MON; Resp 20 S; Pulse Ox 94% on 50% Venturi mask; af2 10:44 BP 100 / 55 (auto/); af2 10:44 Pulse 83 MON; Resp 20; Pulse Ox 94% on 50% Venturi mask; af2 11:00 BP 116 / 59 (auto/); af2 11:00 Pulse 98 MON; Resp 22 S; Pulse Ox 92% on 50% Venturi mask; af2 11:15 BP 111 / 58 (auto/); af2 11:15 Pulse 93 MON; Resp 20 S; Pulse Ox 93% on Venturi mask; af2 11:45 BP 114 / 56 (auto/); af2 11:49 Pulse 93 MON; Resp 18 S; Pulse Ox 95% on 50% Venturi mask; af2 12:00 BP 101 / 53 (auto/); af2 12:00 Pulse 80 MON; Resp 18 S; Pulse Ox 91% on 50% Venturi mask; af2 12:15 BP 99 / 56 (auto/); af2 12:15 Pulse 79 MON; Resp 20 S; Pulse Ox 93% on 50% Venturi mask; af2 12:25 Temp 99.1(R); ls3 12:30 BP 112 / 58 (auto/); af2 12:30 Pulse 86 MON; Resp 20 S; Pulse Ox 98% on Venturi mask; af2 12:45 BP 121 / 59 (auto/); af2 12:45 Pulse 81 MON; Resp 20 S; Pulse Ox 94% on 50% Venturi mask; af2 13:00 BP 112 / 55 (auto/); af2 13:00 Pulse 79 MON; Resp 20; Pulse Ox 95% on 50% Venturi mask; af2 13:15 BP 101 / 53 (auto/); af2 13:15 Pulse 76 MON; Resp 20 S; Pulse Ox 96% on 50% Venturi mask; af2 13:30 BP 107 / 54 (auto/); af2 13:30 Pulse 75 MON; Resp 20 S; Pulse Ox 97% on 50% Venturi mask; af2 13:45 BP 105 / 54 (auto/); af2 13:45 Pulse 77 MON; Resp 20 S; Pulse Ox 96% on 50% Venturi mask; af2 14:00 BP 110 / 58 (auto/); af2 14:00 Pulse 74 MON; Resp 20 S; Pulse Ox 96% on 50% Venturi mask; af2 14:15 BP 134 / 60 (auto/); af2 14:15 Pulse 79 MON; Resp 18; Pulse Ox 97% on 50% Venturi mask; af2 Vitals: 09:35 Log In Time N/A - ambulance arrival. af2 ED Course: 09:23 Patient visited by Angelica Woodruff PCA. ar3 09:23 Patient moved to Waiting ar3 09:24 Melody Stuart RN is Primary Nurse. ar3 09:24 Gerri High is Private Physician. ar3 09:24 Patient moved to 10 ar3 09:27 Blake Mauricio MD is Attending Physician. pc 09:32 Patient visited by Blake Mauricio MD. pc 09:34 Triage Initiated af2 09:36 Patient visited by Melody Stuart RN. af2 09:46 -Arterial Blood Gas Sent. js 10:01 Lactic Acid (Pickering tube on ice) Sent. jo3 10:01 -Blood Culture Sent. jo3 10:01 B-Type Natiuretic Peptide Sent. jo3 10:01 Basic Metabolic Profile Sent. jo3 10:01 CBC with Diff Sent. jo3 10:01 Cardiac Injury Profile Sent. jo3 10:01 Troponin Sent. jo3 10:01 Inserted saline lock: 18 gauge in right antecubital area. jo3 10:01 Labs drawn. (by ED staff). Sent per order to lab. Labs/Blood culture drawn. jo3 10:03 Patient visited by Melody Stuart RN. af2 10:05 Patient visited by Melody Stuart RN. af2 10:12 Chest, 1 View Returned. EDMS 10:16 Patient name changed from Baldemar\S\\S\[place]\S\ to Baldemar\S\ \S\[place]. EDMS 10:17 Patient visited by Melody Stuart RN. af2 10:17 [facility] Payment Agreement was scanned into [employer] and attached to record. lg 10:24 Patient visited by Melody Stuart RN. af2 10:24 EKG done. (by ED staff). Reviewed by Blake Mauricio MD. tk 10:25 Patient visited by Hamilton Chandler. tk 10:31 Amylase Sent. af2 10:31 C Reactive Protein Sent. af2 10:31 Liver Profile Sent. af2 10:31 PT/INR Sent. af2 10:31 PTT Sent. af2 10:31 PLATELET ESTIMATE Sent. af2 10:31 DIFFERENTIAL NO CHARGE Sent. af2 10:31 BLOOD CULTURES Sent. af2 10:37 Patient moved to 3 pc 10:39 Patient visited by Melody Stuart RN. af2 10:57 Urinalysis Sent. af2 10:57 Urine Culture Sent. af2 11:12 Patient visited by Melody Stuart RN. af2 11:13 Inserted saline lock: 18 gauge in left forearm and blood collected. The patient af2 tolerated the procedure well. No procedures done that require assistance. 11:14 O2 via Venturi mask \T\ 15L/min - 50%. af2 11:20 Patient visited by Melody Stuart RN. af2 11:22 Forrester cath inserted 16 Fr. Balloon inflated. To gravity drainage. Urine specimen af2 collected. Patient tolerated well. 11:23 Patient visited by Melody Stuart RN. af2 11:28 Patient visited by Melody Stuart RN. af2 11:58 Patient visited by Melody Stuart RN. af2 12:25 Patient visited by Pippa Ramos, [place]. ls3 12:30 Patient visited by Melody Stuart RN. af2 12:35 Asuncion Saavedra is Hospitalizing Provider. pc 12:42 CT Chest Without Contrast Returned. EDMS 12:49 The patient / caregiver is instructed regarding the plan of care and ED course. af2 Accompanied by Caregiver, Patient has correct armband on for positive identification. Placed in gown. Bed in low position. Call light in reach. Side rails up X2. monitoring specialist on. Pulse ox on. NIBP on. 12:50 Patient visited by Melody Stuart RN. af2 13:11 Patient visited by Kleber Franco RN. bcj 13:36 Patient visited by Melody Stuart RN. af2 14:15 NGT inserted 14 Fr. via left nare. Placement verified. af2 14:16 Patient visited by Melody StuartRN. af2 14:21 Patient visited by Melody Stuart RN. af2 06/05 10:49 ECG/EKG was scanned into [employer] and attached to record. gb 10:50 Trend VS was scanned into [employer] and attached to record. gb Administered Medications: 06/04 10:14 Drug: Acetaminophen 650 mg [acetaminophen 325 mg tablet (2 tabs)] {Note: crushed in af2 apple sauce..} Route: PO; 11:12 Drug: Cefepime 2 grams [cefepime 2 gram solution for injection] Route: IVPB; Rate: 100 af2 mL/hr; Infused Over: 30 mins; Site: right antecubital; 11:13 Drug: NS 0.9% (Sepsis- hypotension or lactate >4mmol/L, 30ml/kg) 1800 ml [sodium af2 chloride 0.9 % intravenous solution] {Note: 1st 500cc started at this time..} Route: IV; Rate: bolus; Site: left forearm; 12:35 Follow up: IV Status: Completed infusion; IV Intake: 500ml jf3 Attachments: 10:50 Trend VS gb Intake: 06/04 11:56 IV: 550.00ml (NS); Total: 550.00ml. af2 12:35 IV: 500.00ml; Total: 1050.00ml. jf3 12:50 IV: 500.00ml (NS); Total: 1550.00ml. af2 Output: 11:22 Urine: 300.00ml (Forrester); Total: 300.00ml. af2 RT: 09:46 ABG's drawn from right brachial artery allens test done and positive pressure held for js 5 minutes no bleeding noted pressure bandage applied specimen sent pt. tolerated well. O2 via non-rebreather \T\ 15L/min. Order Results: Lab Order: B-Type Natiuretic Peptide; SPEC'M 06/04/16 10:02 Test: BRAIN NATRIURETIC PEPTIDE; Value: 103; Range: <100; Abnormal: Above high normal; Units: PG/ML; Status: F Lab Order: Basic Metabolic Profile; SPEC06/04/16 10:02 Test: GLUCOSE, FASTING; Value: 180; Range: 80-110; Abnormal: Above high normal; Units: MG/DL; Status: F Test: BLOOD UREA NITROGEN; Value: 20; Range: 7-18; Abnormal: Above high normal; Units: MG/DL; Status: F Test: CREATININE FOR GFR; Value: 1.08; Range: 0.70-1.30; Units: MG/DL; Status: F Test: GLOMERULAR FILTRATION RATE; Value: > 60.0; Range: >49; Status: F Test: SODIUM LEVEL; Value: 142; Range: 136-145; Units: MEQ/L; Status: F Test: POTASSIUM SERUM; Value: 4.7; Range: 3.5-5.1; Units: MEQ/L; Status: F Test: CHLORIDE LEVEL; Value: 104; Range: 98-107; Units: MEQ/L; Status: F Test: CARBON DIOXIDE LEVEL; Value: 30; Range: 21-32; Units: MEQ/L; Status: F Test: ANION GAP; Value: 8; Range: 8-16; Units: MEQ/L; Status: F Test: CALCIUM LEVEL; Value: 8.2; Range: 8.8-10.2; Abnormal: Below low normal; Units: MG/DL; Status: F Test Note: ; Units are mL/min/1.73 m2 Chronic Kidney Disease Staging per NKF: Stage I & II GFR >=60 Normal to Mildly Decreased Stage III GFR 30-59 Moderately Decreased Stage IV GFR 15-29 Severely Decreased Stage V GFR <15 Very Little GFR Left ESRD GFR <15 on IMMIGRATION CASE MANAGER Lab Order: CBC with Diff; SPEC06/04/16 10:02 Test: WHITE BLOOD COUNT; Value: 3.1; Range: 4.0-10.0; Abnormal: Below low normal; Units: K/mm3; Status: F Test: RED BLOOD COUNT; Value: 4.14; Range: 4.30-6.10; Abnormal: Below low normal; Units: M/mm3; Status: F Test: HEMOGLOBIN; Value: 12.8; Range: 14.0-18.0; Abnormal: Below low normal; Units: g/dl; Status: F Test: HEMATOCRIT; Value: 38.8; Range: 42.0-52.0; Abnormal: Below low normal; Units: %; Status: F Test: MEAN CORPUSCULAR VOLUME; Value: 93.7; Range: 80.0-96.0; Units: fl; Status: F Test: MEAN CORPUSCULAR HEMOGLOBIN; Value: 31.0; Range: 27.0-33.0; Units: pg; Status: F Test: MEAN CORPUSCULAR HGB CONC; Value: 33.1; Range: 32.0-36.5; Units: g/dl; Status: F Test: RED CELL DISTRIBUTION WIDTH; Value: 15.5; Range: 11.5-14.5; Abnormal: Above high normal; Units: %; Status: F Test: PLATELET COUNT, AUTOMATED; Value: 122; Range: 150-450; Abnormal: Below low normal; Units: k/mm3; Status: F Test: NEUTROPHILS; Value: 71; Range: 35-75; Units: %; Status: F Test: BANDS; Value: 4; Range: < 11; Units: %; Status: F Test: LYMPHOCYTES; Value: 20; Range: 16-52; Units: %; Status: F Test: MONOCYTES; Value: 1; Range: 0-8; Units: %; Status: F Test: BASOPHILS; Value: 2; Range: 0-4; Units: %; Status: F Test: METAMYELOCYTES; Value: 2; Range: 0-0; Abnormal: Above high normal; Units: %; Status: F Test: RBC MORPHOLOGY; Value: NORMAL; Status: F Lab Order: Cardiac Injury Profile; [facility] 06/04/16 10:02 Test: CPK CREATINE PHOSPHOKINASE; Value: 67; Range: 39-308; Units: U/L; Status: F Test: CK-MB VALUE MASS; Value: 1.6; Range: 0.0-3.6; Units: NG/ML; Status: F Test: MB/CK RELATIVE INDEX; Value: 2.38; Range: < OR =4; Status: F Test Note: ; DIAGNOSIS CRITERIA MMB ng/ml Relative Index (RI) NON-AMI < or = 5 N/A PICKERING ZONE > 5 < or = 4 AMI > 5 > 4 Lab Order: Troponin; [facility] 06/04/16 10:02 Test: TROPONIN I; Value: 0.05; Range: < 0.10; Units: NG/ML; Status: F Test Note: ; Troponin I Reference Interval for TATE'S LIST LOCI: 99th Percentile= 0.00-0.045 ng/ml Risk Stratification: <= 0.10 ng/ml Decreased Risk for Adverse Clinical Events. 0.10-1.50 ng/ml Increased Risk for Adverse Clinical Events. Evaluation of additional criterion and/or repeat testing in 2-6 hours is suggested to rule out myocardial damage. >= 1.50 ng/ml Indicative of Myocardial Injury. Lab Order: -Arterial Blood Gas; [facility] 06/04/16 09:44 Test: ABG pH (ARTERIAL); Value: 7.409; Range: 7.350-7.450; Units: UNITS; Status: F Test: ABG PARTIAL PRESSURE CO2; Value: 42.2; Range: 35.0-45.0; Units: mmHg; Status: F Test: ABG PARTIAL PRESSURE O2; Value: 130.4; Range: 75.0-100.0; Abnormal: Above high normal; Units: mmHg; Status: F Test: ABG TOTAL CO2; Value: 27.4; Range: 23.0-31.0; Units: MEQ/L; Status: F Test: ABG HCO3; Value: 26.1; Range: 22.0-26.0; Abnormal: Above high normal; Units: MEQ/L; Status: F Test: ABG BASE EXCESS; Value: 1.2; Range: -2.0-2.0; Status: F Test: ABG STANDARD HCO3; Value: 25.6; Range: 22.0-26.0; Units: MEQ/L; Status: F Test: ABG O2 SATURATION; Value: 99.0; Range: 95.0-99.0; Units: %; Status: F Test: ABG DEVICE; Value: NASAL CAMILO; Status: F Lab Order: Lactic Acid (Pickering tube on ice); [facility] 06/04/16 10:02 Test: LACTIC ACID LEVEL, LACTATE; Value: 2.2; Range: 0.4-2.0; Abnormal: Above upper panic limits; Units: MMOL/L; Status: F Lab Order: PLATELET ESTIMATE; [facility] 06/04/16 10:02 Test: PLATELET ESTIMATE; Value: NORMAL; Range: NORMAL; Status: F Lab Order: Amylase; [facility] 06/04/16 10:44 Test: AMYLASE; Value: 27; Range: 25-115; Units: U/L; Status: F Lab Order: C Reactive Protein; [facility] 06/04/16 10:44 Test: C REACTIVE PROTEIN QUANTITATIV; Value: 2.32; Range: 0.00-0.30; Abnormal: Above high normal; Units: MG/DL; Status: F Lab Order: Liver Profile; [facility] 06/04/16 10:44 Test: AST/SGOT; Value: 13; Range: 15-37; Abnormal: Below low normal; Units: U/L; Status: F Test: ALT/SGPT; Value: 25; Range: 12-78; Units: U/L; Status: F Test: ALKALINE PHOSPHATASE; Value: 48; Range: 45-117; Units: U/L; Status: F Test: BILIRUBIN,TOTAL; Value: 0.8; Range: 0.2-1.0; Units: MG/DL; Status: F Test: BILIRUBIN,DIRECT; Value: 0.3; Range: 0.0-0.2; Abnormal: Above high normal; Units: MG/DL; Status: F Test: TOTAL PROTEIN; Value: 6.7; Range: 6.4-8.2; Units: GM/DL; Status: F Test: ALBUMIN; Value: 2.9; Range: 3.2-5.2; Abnormal: Below low normal; Units: GM/DL; Status: F Test: ALBUMIN/GLOBULIN RATIO; Value: 0.76; Range: 1.00-1.93; Abnormal: Below low normal; Status: F Lab Order: PT/INR; [facility] 06/04/16 10:04 Test: PROTHROMBIN TIME; Value: 15.0; Range: 12.3-14.5; Abnormal: Above high normal; Units: SECONDS; Status: F Test: INR; Value: 1.17; Status: F Test Note: ; THERAPUTIC HUMAN INR VALUES INDICATIONS NORMAL RANGES PROPHYLAXIS/TREATMENT OF: VENOUS THROMBOSIS 2.0-3.0 PULMONARY EMBOLISM 2.0-3.0 PREVENTION OF SYSTEMIC EMBOLISM FROM: TISSUE HEART VALVES 2.0-3.0 ACUTE MYOCARDIAL INFARCTION 2.0-3.0 VALVULAR HEART DISEASE 2.0-3.0 ATRIAL FIBRILLATION 2.0-3.0 MECHANICAL VALVES(HIGH RISK) 2.5-3.5 RECURRENT MYOCARDIAL INFARCTION 2.5-3.5 Lab Order: PTT; [facility] 06/04/16 10:04 Test: PARTIAL THROMBOPLASTIN TIME; Value: 28.5; Range: 26.6-37.1; Units: SECONDS; Status: F Lab Order: Type & Screen; [facility] 06/04/16 10:44 Test: BLOOD TYPE; Value: O POS; Status: F Test: AB SCREEN (INDIRECT RAULITO)GEL; Value: NEGATIVE; Status: F Lab Order: Urinalysis; [facility] 06/04/16 10:52 Test: APPEARANCE, URINE; Value: CLEAR; Range: CLEAR; Status: F Test: COLOR, URINE; Value: YELLOW; Range: YELLOW; Status: F Test: PH,URINE; Value: 6.0; Range: 5.0-9.0; Units: UNITS; Status: F Test: SPECIFIC GRAVITY URINE AUTO; Value: 1.015; Range: 1.002-1.035; Status: F Test: PROTEIN, URINE AUTO; Value: NEGATIVE; Range: NEGATIVE; Units: mg/dL; Status: F Test: GLUCOSE, URINE (UA) AUTO; Value: NEGATIVE; Range: NEGATIVE; Units: mg/dL; Status: F Test: KETONE, URINE AUTO; Value: NEGATIVE; Range: NEGATIVE; Units: mg/dL; Status: F Test: UROBILINOGEN, URINE AUTO; Value: 0.2; Range: 0.0-2.0; Units: mg/dL; Status: F Test: BILIRUBIN, URINE AUTO; Value: NEGATIVE; Range: NEGATIVE; Status: F Test: NITRITE, URINE AUTO; Value: NEGATIVE; Range: NEGATIVE; Status: F Test: LEUKOCYTE ESTERASE, URINE AUTO; Value: NEGATIVE; Range: NEGATIVE; Status: F Test: BLOOD, URINE BLOOD; Value: NEGATIVE; Range: NEGATIVE; Status: F Test: WBC, URINE AUTO; Value: 0; Range: 0-3; Units: /HPF; Status: F Test: RBC, URINE AUTO; Value: 1; Range: 0-3; Units: /HPF; Status: F Test: BACTERIA, URINE AUTO; Value: NEGATIVE; Range: NEGATIVE; Status: F Test: SQUAMOUS EPITHELIAL CELL UR AU; Value: 0; Range: 0-6; Units: /HPF; Status: F Test: HYALINE CAST, URINE AUTO; Value: 0; Range: 0-1; Units: /LPF; Status: F Radiology Order: Chest, 1 View Test: Chest, 1 View REASON FOR EXAMINATION: Shortness of Breath; Clinical: Acute shortness of breath.; ; Technique: Portable semiupright.; ; Comparison: 05/19/2016.; ; Findings:; Bilateral perihilar and lower lobe infiltrates with possible small pleural; reaction noted. Differential diagnosis includes pulmonary edema as well as; multifocal pneumonia. No pneumothorax. Mediastinum and cardiac silhouette are; stable - mild cardiomegaly again suspected.; ; Impression:; Bilateral perihilar and basilar opacities. Differential diagnosis includes; pulmonary edema and pneumonia.; ; ; Signed by; Steven Rossi MD 06/04/2016 09:43 A; Radiology Order: CT Chest Without Contrast Test: CT Chest Without Contrast REASON FOR EXAMINATION: sepsis; Clinical: Sepsis.; ; Comparison: 05/19/2016.; ; Findings:; Multi focal alveolar infiltrates and areas of consolidation with air bronchograms; involve the bilateral upper lobes, lower lobes, and right middle lobe which are; increased when compared to prior examination. No pleural effusion. No; pneumothorax. Subcentimeter reactive adenopathy to the mediastinum is suggested.; Stable cardiomegaly. Surrounding musculoskeletal structures demonstrate; age-related changes without focal osseous abnormality.; ; Impression:; 1. Bilateral multifocal infiltrates increased from prior examination.; Differential diagnosis includes multifocal pneumonia and pulmonary edema. No; effusion. Subcentimeter reactive lymph nodes without significant adenopathy.; 2. Stable chronic cardiomegaly with minimal epicardial fluid.; ; ; Signed by; Steven Rossi MD 06/04/2016 12:09 P; Outcome: 12:35 Decision to Hospitalize by Provider. pc 12:49 Discharge Assessment: Patient awake, alert and oriented x 3. No cognitive and/or af2 functional deficits noted. Patient verbalized understanding of disposition instructions. patient administered narcotics - no. The following High Risk Discharge criteria are identified: None. Admitted to ICU accompanied by nurse, accompanied by tech, via stretcher, with oxygen, on monitor, with chart. Condition: stable. CT Study completed. Property :Personal belongings accompany Pt. 14:26 Patient left the ED. [facility] Signatures: Dispatcher [employer] Blake Cantu MD MD pc Johnson, Bruce, RN RN bcj Fortunato, Barbie, Reg Reg gb Darshana Momin, Reg Reg lg Sami Tello JenniferRN RN jo3 Angelica Woodruff, VALANCE CUTTER VALANCE CUTTER ar3 Melody Stuart,RN RN af2 Pippa Ramos, VALANCE CUTTER VALANCE CUTTER ls3 Hamilton Chandler Justin,RN RN jf3 Corrections: (The following items were deleted from the chart) 10:05 10:03 BP 88 / 52 Manual L Arm; af2 af2 Chart Complete MTDD
[2016-06-06] MEDS ORDERED: SODIUM CHLORIDE 0.9% 1000 ML IV ONE (17:45)
[2016-06-06] MEDS: OLANZapine 5 MG TAB NG SCH (21:45)
[2016-06-07] VITALS (10 sets, daily range): BP systolic 116–139; BP diastolic 56–70
[2016-06-07] MEDS: PIPERACILLIN/TAZOBACTAM SOD 3.375 GM in D5W MINI-BAG PLUS 50 ML IV SCH ×3 (00:37→18:29)
[2016-06-07] MEDS: IPRATROPIUM 0.5MG/ALBUTEROL 2.5MG INH SOL UD 3ML (DUONEB)(J7620) NEB SCH ×4 (01:21→19:46)
[2016-06-07] MEDS: VANCOMYCIN HCL 1,000 MG, VIAL MATE ADAPTER 1 EACH in D5W 250 ML IV SCH ×2 (04:04→17:02)
[2016-06-07 05:16] LABS: MEAN CORPUSCULAR HEMOGLOBIN 30.7 pg (27.0-33.0); MEAN CORPUSCULAR HGB CONC 33.6 g/dl (32.0-36.5); MEAN CORPUSCULAR VOLUME 91.5 fl (80.0-96.0); RED CELL DISTRIBUTION WIDTH 15.8 % (11.5-14.5)
[2016-06-07 05:33] LABS: ANION GAP 7 MEQ/L (8-16); BLOOD UREA NITROGEN 11 MG/DL (7-18); CALCIUM LEVEL 8.2 MG/DL (8.8-10.2); CARBON DIOXIDE LEVEL 30 MEQ/L (21-32); CHLORIDE LEVEL 103 MEQ/L (98-107); CREATININE FOR GFR 0.79 MG/DL (0.70-1.30); GLOMERULAR FILTRATION RATE > 60.0 (>49); GLUCOSE, FASTING 150 MG/DL (80-110); POTASSIUM SERUM 3.5 MEQ/L (3.5-5.1); SODIUM LEVEL 140 MEQ/L (136-145)
[2016-06-07] MEDS: SINEMET 25-100 MG TAB NG SCH ×3 (05:53→20:07)
[2016-06-07] MEDS: HumaLOG INSULIN (NovoLOG) PER UNIT SC SCH ×4 (05:53→17:34)
[2016-06-07] MEDS: SLF 3 ML SYR IV SCH ×3 (05:54→22:00)
[2016-06-07] MEDS: SENOKOT S TAB NG SCH ×2 (08:41→20:07)
[2016-06-07] MEDS: PARoxetine 20 MG TAB NG SCH (08:41)
[2016-06-07] MEDS: MIRALAX *UNIT DOSE* 17GM PACKET TF SCH (08:42)
[2016-06-07] MEDS: NYSTATIN OINTMENT 15 GM TOP SCH ×2 (09:00→20:07)
[2016-06-07] MEDS: PANTOPRAZOLE 40MG INJ (PROTONIX) (C9113) IV SCH (09:06)
[2016-06-07] MEDS ORDERED: SENOKOT S TAB PO PRN (11:30)
[2016-06-07] MEDS ORDERED: ALBUTEROL SULFATE 2.5 MG/0.5 ML INH NEB SOLN INH SCH (13:00)
[2016-06-07] MEDS ORDERED: MIDAZOLAM INJ 2 MG/2 ML VIAL (J2250) As Ordered ONE (13:08)
[2016-06-07] MEDS ORDERED: LIDOCAINE 2% INJ 100 MG/5 ML SDV (FOR ANES.) As Ordered ONE (13:08)
[2016-06-07] MEDS ORDERED: PROPOFOL 200 MG/20 ML VIAL As Ordered ONE (13:08)
[2016-06-07] MEDS ORDERED: fentaNYL 100 MCG/2 ML INJECTION (J3010) As Ordered ONE (13:09)
[2016-06-07] MEDS ORDERED: ONDANSETRON 4MG/2ML VIAL (J2405) As Ordered ONE (13:59)
[2016-06-07] MEDS ORDERED: ePHEDrine SULFATE 25 MG/5 ML(5MG/ML) SYRINGE As Ordered ONE (14:02)
--- NOTE | 2016-06-07 14:16 | IPNPDOC ---
Assessment/Plan Date Seen The patient was seen on 06/07/16. Problems Problems: (1) Sepsis Status: Acute Response to Treatment: Stable Problem Text: aspiration pneumonia pt on zosyn and vancomycin abx therapy (2) Aspiration pneumonia Status: Acute Response to Treatment: Stable Problem Text: swallow study done recommended PEG tube surgery consulted will continue with NG tube feeding for now. (3) Acute respiratory failure with hypoxemia Status: Acute Problem Text: due to aspiration pneumonia and asthma exacerbation continue nebs, antibiotics. (4) Diarrhea Status: Resolved Problem Text: c diff negative. (5) Asthma Status: Chronic Response to Treatment: Stable Problem Text: Nebulizer treatments ordered Pt is not wheezing currently continue to monitor (6) BPH (benign prostatic hyperplasia) Status: Chronic Response to Treatment: Stable Problem Text: continue home medications (7) Parkinson's disease Status: Chronic Problem Text: medications per NG tube (8) DM2 (diabetes mellitus, type 2) Status: Chronic Response to Treatment: Stable Problem Text: diet controlled non insulin dependent will monitor finger sticks insulin as needed (9) Dyslipidemia Status: Chronic Response to Treatment: Stable (10) Down's syndrome Status: Chronic Problem Text: [facility] pt continue with home medications. at baseline can walk to the bathroom with staff, sits in chair and watches tv, makes some noises but otherwise nonverbal. Plan / VTE VTE Prophylaxis Ordered?: Yes Subjective Review of Systems CC/HPI The patient is a 61-year-old male admitted with a reason for visit of Aspiration Pneumonia,Sepsis. Events since last encounter no new issues. Objective Physical Examination General Exam: Positive: No Acute Distress, Negative: Alert (pt is sleeping and arousable to voice, unfortunately most of the exam consisted of him grunting and crying out but not making sense with his communication due to his baseline intellectual deficiency ), Cooperative Eye Exam: Positive: Conjunctiva & lids normal, PERRLA, Negative: Ptosis, Sclera icteric ENT Exam: Positive: Atraumatic, Mucous membr. moist/pink Neck Exam: Positive: Supple Chest Exam: Positive: Clear to auscultation, Normal air movement, Rhonchi (RUL) , Negative: Diminished, Wheezing Heart Exam: Positive: Normal S2, Rate Normal Telemetry: Positive: No significant arrhythmia Abdomen Exam: Positive: Normal bowel sounds, Soft, Negative: Hepatospenomegaly, Tenderness Extremity Exam: Negative: Clubbing, Edema Psych Exam: Positive: Other (intellectual deficiency ) Vital Signs/I&O Vital Signs Date Time Temp Pulse Resp B/P Pulse Ox O2 Delivery O2 Flow Rate FiO2 06/07/16 12:00 98.0 72 22 122/70 95 Nasal Cannula 3.0 06/06/16 06:00 50 I&O- Last 24 Hours up to 6 AM 06/07/16 06:00 Intake Total 1730 ml Output Total 957 ml Balance 773 ml Laboratory Data Labs 24H Laboratory Tests 2 06/06/16 14:58: Vancomycin Level Trough 15.5 06/06/16 16:56: Bedside Glucose (Misc Panel) 117H 06/07/16 00:39: Bedside Glucose (Misc Panel) 117H 06/07/16 04:51: Anion Gap 7L, C-Reactive Protein, Quantitative 8.46H, Blood Urea Nitrogen 11, Creatinine 0.79, Sodium Level 140, Potassium Level 3.5, Chloride Level 103, Carbon Dioxide Level 30, Calcium Level 8.2L, Glomerular Filtration Rate > 60.0, Magnesium Level 2.0 06/07/16 05:50: Bedside Glucose (Misc Panel) 149H 06/07/16 11:52: Bedside Glucose (Misc Panel) 123H CBC/BMP Laboratory Tests 06/07/16 04:51 Calcium Level 8.2 L, Red Blood Count 3.25 L, Mean Corpuscular Volume 91.5, Mean Corpuscular Hemoglobin 30.7, Mean Corpuscular Hemoglobin Concent 33.6, Red Cell Distribution Width 15.8 H FSBS Laboratory Tests Test 06/06/16 16:56 06/07/16 00:39 06/07/16 05:50 06/07/16 11:52 Range/Units Bedside Glucose (Misc Panel) 117 117 149 123 80-115 MG/DL Microbiology Microbiology 06/04/16 Blood Culture - Preliminary, Resulted No Growth after 72 hours. All specime... 06/04/16 Blood Culture - Preliminary, Resulted No Growth after 72 hours. All specime... 06/06/16 Gastrointestinal Tract Panel (PCR) - Final, Complete 06/06/16 MRSA Screen - Final, Complete 06/04/16 Urine Culture - Final, Complete NANDINI VILLAVICENCIO MD Jun 07, 2016 14:16
[2016-06-07] MEDS ORDERED: LIDOCAINE 1% MDV 20ML VIAL SQ ONE (14:37)
--- NOTE | 2016-06-07 14:48 | ROOR ---
Patient Name: Baldemar Jones Procedure Date: 06/07/2016 1:54 PM Date of : 1955 Age: 61 Room: Main OR Gender: Male Note Status: Finalized Procedure: Upper GI endoscopy Indications: Place PEG due to aspiration risk Providers: DO Shaheed Almonte MD: 2. Inpatient 2. Inpatient Requesting Provider: Medicines: General Anesthesia Complications: No immediate complications. Procedure: Pre-Anesthesia Assessment: - Prior to the procedure, a History and Physical was performed, and patient medications and allergies were reviewed. The patient is unable to give consent secondary to the patient being legally incompetent to consent. The risks and benefits of the procedure and the sedation options and risks were discussed with the patient's guardian. All questions were answered and informed consent was obtained. Patient identification and proposed procedure were verified by the physician, the nurse, the anesthesiologist, the railroad car checker and the assessment technician in the procedure room. Mental Status Examination: alert but confused. Airway Examination: normal oropharyngeal airway and neck mobility. Respiratory Examination: clear to auscultation. CV Examination: normal. Prophylactic Antibiotics: The patient does not require prophylactic antibiotics. Prior Anticoagulants: The patient has taken no previous anticoagulant or antiplatelet agents. ASA Grade Assessment: III - A patient with severe systemic disease. After reviewing the risks and benefits, the patient was deemed in satisfactory condition to undergo the procedure. The anesthesia plan was to use general anesthesia. Immediately prior to administration of medications, the patient was re-assessed for adequacy to receive sedatives. The heart rate, respiratory rate, oxygen saturations, blood pressure, adequacy of pulmonary ventilation, and response to care were monitored throughout the procedure. The physical status of the patient was re-assessed after the procedure. The Endoscope was introduced through the mouth, and advanced to the second part of duodenum. The upper GI endoscopy was accomplished without difficulty. The patient tolerated the procedure well. Findings: The exam was otherwise without abnormality. There was evidence of an intact gastrostomy with a patent G-tube present in the gastric body. Impression: - The examination was otherwise normal. - Intact gastrostomy with a patent G-tube present. - No specimens collected. Recommendation: - Return patient to ICU for ongoing care. Tirso Paige DO 06/07/2016 2:48:02 PM This report has been signed electronically. Number of Addenda: 0 Note Initiated On: 06/07/2016 1:54 PM Estimated Blood Loss: Estimated blood loss was minimal.
[2016-06-07] MEDS: ATORVASTATIN 20 MG TAB PO SCH (20:06)
[2016-06-07] MEDS: OLANZapine 5 MG TAB NG SCH (20:07)
[2016-06-07] MEDS: ACETAMINOPHEN TAB 650MG DOSE (2X325MG) PO PRN (22:12)
[2016-06-08] VITALS: BP 142/61
[2016-06-08] MEDS ORDERED: PERCOCET 5MG/325MG TAB PEG ONE (01:00)
[2016-06-08] MEDS: PIPERACILLIN/TAZOBACTAM SOD 3.375 GM in D5W MINI-BAG PLUS 50 ML IV SCH ×3 (01:00→18:57)
[2016-06-08 02:00] VITALS: BP 149/66
[2016-06-08] MEDS: IPRATROPIUM 0.5MG/ALBUTEROL 2.5MG INH SOL UD 3ML (DUONEB)(J7620) NEB SCH ×4 (02:00→20:27)
[2016-06-08] MEDS: VANCOMYCIN HCL 1,000 MG, VIAL MATE ADAPTER 1 EACH in D5W 250 ML IV SCH ×2 (03:55→17:34)
[2016-06-08 06:00] VITALS: BP 130/65
[2016-06-08] MEDS: SLF 3 ML SYR IV SCH ×3 (06:00→21:13)
[2016-06-08] MEDS: HumaLOG INSULIN (NovoLOG) PER UNIT SC SCH ×4 (06:09→18:09)
[2016-06-08] MEDS: SINEMET 25-100 MG TAB NG SCH ×3 (06:09→20:41)
[2016-06-08 07:05] LABS: MEAN CORPUSCULAR HEMOGLOBIN 31.2 pg (27.0-33.0); MEAN CORPUSCULAR HGB CONC 33.3 g/dl (32.0-36.5); MEAN CORPUSCULAR VOLUME 93.7 fl (80.0-96.0); RED CELL DISTRIBUTION WIDTH 14.9 % (11.5-14.5); WHITE BLOOD COUNT 5.2 K/mm3 (4.0-10.0)
[2016-06-08 07:28] LABS: ANION GAP 9 MEQ/L (8-16); BLOOD UREA NITROGEN 9 MG/DL (7-18); CARBON DIOXIDE LEVEL 31 MEQ/L (21-32); CHLORIDE LEVEL 101 MEQ/L (98-107); CREATININE FOR GFR 0.79 MG/DL (0.70-1.30); GLOMERULAR FILTRATION RATE > 60.0 (>49); GLUCOSE, FASTING 148 MG/DL (80-110); MAGNESIUM LEVEL 1.9 MG/DL (1.8-2.4); POTASSIUM SERUM 3.5 MEQ/L (3.5-5.1); SODIUM LEVEL 141 MEQ/L (136-145)
[2016-06-08] MEDS: MIRALAX *UNIT DOSE* 17GM PACKET TF SCH (08:15)
[2016-06-08] MEDS: PARoxetine 20 MG TAB NG SCH (08:15)
[2016-06-08] MEDS: SENOKOT S TAB NG SCH ×2 (08:15→20:41)
[2016-06-08] MEDS: PANTOPRAZOLE 40MG INJ (PROTONIX) (C9113) IV SCH (08:15)
[2016-06-08] MEDS: NYSTATIN OINTMENT 15 GM TOP SCH ×2 (08:17→20:42)
--- NOTE | 2016-06-08 10:47 | CR ---
DATE OF CONSULTATION: 06/06/2016 REASON FOR CONSULTATION: Is percutaneous endoscopic gastrostomy (PEG) tube placement. HISTORY OF PRESENT ILLNESS: Patient is a 61-year-old male. He is nonverbal. History was obtained from the chart. He has a history of Down syndrome and currently lives at [facility]. He has had multiple episodes of aspiration pneumonia. Recently, he was just discharged from the hospital on 05/24/2016 for pneumonia and he presented again on 06/04/2016 with the same symptoms. He was treated in the intensive care unit (ICU) for sepsis secondary to this worsening aspiration pneumonia. Yesterday, he also had a swallow study done by dietary, which shows aspiration risk and recommendation was for PEG tube. Primary team has discussed this with the patient's caregiver, who agrees that they would like to have this completed. I have been unable to go a hold of them at this point. However, that will most likely be the plan. PAST MEDICAL HISTORY: 1. Recurrent aspiration pneumonia. 2. Down syndrome. 3. Diabetes. 4. Asthma. 5. BPH. 6. Dyslipidemia. 7. Parkinson. 8. Abdominal wall hernia. ALLERGIES: None. PAST SURGICAL HISTORY: None. SOCIAL HISTORY: Negative. FAMILY HISTORY: Noncontributory. REVIEW OF SYSTEMS: Unable to obtain. HOME MEDICATIONS: Please see medical record. PHYSICAL EXAMINATION: General: Patient is awake and alert. Vital signs: Temperature 98.8, pulse 99, respirations 20, blood pressure 153/64, pulse oximetry 94% on 3 liters nasal cannula. HEENT: Pupils equal, round, react to light and accommodation. Heart: S1, S2. Regular rate and rhythm. Lungs: Clear to auscultation bilaterally. Abdomen: Soft, nontender, nondistended. No signs of previous surgery. Extremities: No clubbing, cyanosis or edema. LABORATORY DATA: White count 6.6, hemoglobin 10.5, platelets 105. Potassium 3.5. IMAGING: Chest x-ray from 06/05/2016 shows cardiomegaly and interstitial edema, increasing lower lobe infiltrates right greater than left. ASSESSMENT AND PLAN: Patient is a 61-year-old male patient with Down syndrome, from [facility], currently having aspiration pneumonia with recurrent episodes. Recommendation from dietary is for a feeding tube because he is high risk for oral feeds. Plan will be PEG tube once I have a chance to discuss this with the patient's caregiver. Risks and benefits will be discussed, not limited to but including bleeding, infection, perforation, possibility of tube dislodgement requiring exploratory surgery with repair of the gastrotomy, and also the fact that this tube is temporary. It only needs to be in for at least 2 weeks. If the family decides that they do not wait it can be removed at that time. Once I have a chance to discuss this with the patient's caregiver, plan will be to likely proceed with procedure today.
[2016-06-08] MEDS: ENOXAPARIN 40 MG/0.4 ML SYRINGE (J1650) SC SCH (13:15)
[2016-06-08 14:00] VITALS: BP 105/59
--- NOTE | 2016-06-08 14:05 | IPNPDOC ---
Assessment/Plan Date Seen The patient was seen on 06/08/16. Problems Problems: (1) Sepsis Status: Acute Response to Treatment: Stable Problem Text: aspiration pneumonia pt on zosyn and vancomycin abx therapy (2) Aspiration pneumonia Status: Acute Response to Treatment: Stable Problem Text: swallow study done recommended PEG tube PEG tube placed on 06/07/16 started peg tube feeding this am. (3) Acute respiratory failure with hypoxemia Status: Acute Problem Text: due to aspiration pneumonia and asthma exacerbation continue nebs, antibiotics. (4) Diarrhea Status: Resolved Problem Text: c diff negative. (5) Asthma Status: Chronic Response to Treatment: Stable Problem Text: Nebulizer treatments ordered Pt is not wheezing currently continue to monitor (6) BPH (benign prostatic hyperplasia) Status: Chronic Response to Treatment: Stable Problem Text: continue home medications (7) Parkinson's disease Status: Chronic Problem Text: medications per NG tube (8) DM2 (diabetes mellitus, type 2) Status: Chronic Response to Treatment: Stable Problem Text: diet controlled non insulin dependent will monitor finger sticks insulin as needed (9) Dyslipidemia Status: Chronic Response to Treatment: Stable (10) Down's syndrome Status: Chronic Problem Text: [facility] pt continue with home medications. at baseline can walk to the bathroom with staff, sits in chair and watches tv, makes some noises but otherwise nonverbal. Plan / VTE VTE Prophylaxis Ordered?: Yes Subjective Review of Systems CC/HPI The patient is a 61-year-old male admitted with a reason for visit of Aspiration Pneumonia,Sepsis. Events since last encounter patient awake smiling, shook hands, non verbal, no issues overnight. Objective Physical Examination General Exam: Positive: No Acute Distress, Negative: Alert (pt is sleeping and arousable to voice, unfortunately most of the exam consisted of him grunting and crying out but not making sense with his communication due to his baseline intellectual deficiency ), Cooperative Eye Exam: Positive: Conjunctiva & lids normal, PERRLA, Negative: Ptosis, Sclera icteric ENT Exam: Positive: Atraumatic, Mucous membr. moist/pink Neck Exam: Positive: Supple Chest Exam: Positive: Clear to auscultation, Normal air movement, Rhonchi (RUL) , Negative: Diminished, Wheezing Heart Exam: Positive: Normal S2, Rate Normal Telemetry: Positive: No significant arrhythmia Abdomen Exam: Positive: Normal bowel sounds, Soft, Negative: Hepatospenomegaly, Tenderness Extremity Exam: Negative: Clubbing, Edema Psych Exam: Positive: Other (intellectual deficiency ) Vital Signs/I&O Vital Signs Date Time Temp Pulse Resp B/P Pulse Ox O2 Delivery O2 Flow Rate FiO2 06/08/16 08:15 Nasal Cannula 2.0 06/08/16 06:00 97.0 76 18 130/65 98 06/06/16 06:00 50 I&O- Last 24 Hours up to 6 AM 06/08/16 06:00 Intake Total 1040 ml Output Total 980 ml Balance 60 ml Laboratory Data Labs 24H Laboratory Tests 2 06/07/16 17:18: Bedside Glucose (Misc Panel) 122H 06/07/16 23:38: Bedside Glucose (Misc Panel) 92 06/08/16 06:03: Bedside Glucose (Misc Panel) 140H 06/08/16 06:28: Anion Gap 9, C-Reactive Protein, Quantitative 5.37H, Blood Urea Nitrogen 9, Creatinine 0.79, Sodium Level 141, Potassium Level 3.5, Chloride Level 101, Carbon Dioxide Level 31, Calcium Level 8.0L, Glomerular Filtration Rate > 60.0, Magnesium Level 1.9 06/08/16 12:32: Bedside Glucose (Misc Panel) 105 CBC/BMP Laboratory Tests 06/08/16 06:28 Calcium Level 8.0 L, Red Blood Count 3.35 L, Mean Corpuscular Volume 93.7, Mean Corpuscular Hemoglobin 31.2, Mean Corpuscular Hemoglobin Concent 33.3, Red Cell Distribution Width 14.9 H FSBS Laboratory Tests Test 06/07/16 17:18 06/07/16 23:38 06/08/16 06:03 06/08/16 12:32 Range/Units Bedside Glucose (Misc Panel) 122 92 140 105 80-115 MG/DL Microbiology Microbiology 06/04/16 Blood Culture - Preliminary, Resulted No Growth after 72 hours. All specime... 06/04/16 Blood Culture - Preliminary, Resulted No Growth after 72 hours. All specime... 06/06/16 Gastrointestinal Tract Panel (PCR) - Final, Complete 06/06/16 MRSA Screen - Final, Complete 06/04/16 Urine Culture - Final, Complete NANDINI VILLAVICENCIO MD Jun 08, 2016 14:05
--- NOTE | 2016-06-08 16:13 | PHACANCOPD ---
PHARMACY VANCOMYCIN DOSING Pt Demographics Demographics Patient Age:61 , Weight:58.600 , Gender: male Adjusted Body Weight Events Past 24 Hours Events Past 24 Hours: NO: Change in CrCl, Dialysis, Diuretic Therapy, Elevation in WBC, Fever, Other, Pending Diagnostics, Pending Procedures Vancomycin Vancomycin indication: pneumonia Vancomycin Target Ranges: 10-20 mcg/ml Vancomycin Load Y/N: No Load Dose Date Time Vancomycin Load Dose: Date: Time: Vancomycin Dose Date: 06/08/16. Current Vancomycin Dose: [1g IV q12h @16:00] Intermittent Dosing?: No Labs Micro Microbiology 06/04/16 Blood Culture - Preliminary, Resulted No Growth after 72 hours. All specime... 06/04/16 Blood Culture - Preliminary, Resulted No Growth after 72 hours. All specime... 06/06/16 Gastrointestinal Tract Panel (PCR) - Final, Complete 06/06/16 MRSA Screen - Final, Complete 06/04/16 Urine Culture - Final, Complete Creatinine Clearance Date:. Creatinine Clearance: [>60 ml/min]. Assessment and Plan Maintaining Current Dose?: Yes Reason for dose change: No Dose Change Pharmacist Note Pharmacist Note Date: 06/08/16. Pharmacist note: pt is being treated for aspiration pneumonia/ sepsis and has been started on Zosyn and Vanco. He was on Zosyn and Vanco earlier this month for the same indication. He is currently on Vanco 1g IV q12h. Cultures are negative. A VANCO TR TODAY = 15.7 mcg/ml CONTINUE CURRENT JANESSA Pugh [facility]ARM[facility] Jun 08, 2016 16:13
--- NOTE | 2016-06-08 17:50 | RO ---
DATE OF PROCEDURE: 06/07/2016 PREOPERATIVE DIAGNOSIS: Dysphagia and recurrent aspiration pneumonia. POSTOPERATIVE DIAGNOSIS: Dysphagia and recurrent aspiration pneumonia. OPERATIVE PROCEDURE: Esophagogastroduodenoscopy (EGD) with percutaneous endoscopic gastrostomy (PEG) tube placement. SURGEON: Tirso Paige DO AVIAN KEEPER: None. ANESTHESIA: General. COMPLICATIONS: None. ESTIMATED BLOOD LOSS: 5 mL. INDICATIONS FOR PROCEDURE: The patient is 61-year-old male with Down syndrome currently living at [facility] who has had multiple hospitalizations for aspiration pneumonia. He has had swallow studies done with dietary who confirmed the diagnosis of aspiration risk. Recommendation is to place PEG. Risks and benefits of the procedure not limited to but including bleeding, infection, perforation, need for further surgery discussed in detail with family and consent was obtained from caregivers and procedure was planned. DESCRIPTION OF PROCEDURE: The patient brought back to operating room 8. After sufficient sedation, the abdomen sterilely prepped and draped. A time-out was done to confirm proper patient and proper procedure. Following that, the endoscope was passed through the esophagus into the stomach. At that point, the body of the stomach was palpated through the abdominal wall and confirmed visually inside. Next, a 2 cm area was injected with lidocaine. A 1 cm incision was made with a #15 blade scalpel. A needle was passed through this incision into the stomach under direct visualization followed by passage of the guidewire. Snare was used to grasp the guidewire and pull it out through the pharynx and out the mouth. A 20-Belarusian PEG tube was passed over top of this guidewire and brought out through the stomach. Once this was completed, the scope was reinserted back into the stomach to confirm proper placement. The scope bumpers were attached as well as the clamp and the ports on the end of the feeding tube, thus completing the procedure. The patient tolerated procedure well, was brought back to recovery room in stable condition.
[2016-06-08] MEDS: ATORVASTATIN 20 MG TAB PO SCH (20:40)
[2016-06-08] MEDS: OLANZapine 5 MG TAB NG SCH (20:41)
[2016-06-08] MEDS: ACETAMINOPHEN TAB 650MG DOSE (2X325MG) PO PRN (20:42)
[2016-06-08 22:00] VITALS: BP 135/54
[2016-06-09] MEDS ORDERED: PERCOCET 5MG/325MG TAB PEG ONE
[2016-06-09] MEDS: HumaLOG INSULIN (NovoLOG) PER UNIT SC SCH ×5 (00:12→23:52)
[2016-06-09] MEDS: PIPERACILLIN/TAZOBACTAM SOD 3.375 GM in D5W MINI-BAG PLUS 50 ML IV SCH ×2 (00:12→10:05)
[2016-06-09 03:08] VITALS: BP 147/67
[2016-06-09] MEDS: IPRATROPIUM 0.5MG/ALBUTEROL 2.5MG INH SOL UD 3ML (DUONEB)(J7620) NEB SCH ×4 (03:09→20:16)
[2016-06-09] MEDS: VANCOMYCIN HCL 1,000 MG, VIAL MATE ADAPTER 1 EACH in D5W 250 ML IV SCH ×2 (04:00→16:04)
--- NOTE | 2016-06-09 04:00 | REPUSA ---
CLINICAL HISTORY: Shortness of breath. COMMENTS: The cardiac silhouette is enlarged. There is evidence for pulmonary venous congestion compatible with CHF. There is no definite radiographic evidence for a lung mass or consolidation. Bony structures appear normal. IMPRESSION: 1. Enlarged cardiac silhouette. 2. Pulmonary venous congestion compatible with CHF. Thank you for your kind referral of this patient.
[2016-06-09] MEDS ORDERED: FUROSEMIDE 20 MG/2 ML VIAL (J1940) IV ONE ×3 (04:30→14:00)
[2016-06-09 06:00] VITALS: BP 118/63
[2016-06-09] MEDS: SLF 3 ML SYR IV SCH ×3 (06:00→20:09)
[2016-06-09] MEDS: SINEMET 25-100 MG TAB NG SCH ×3 (06:05→18:40)
[2016-06-09 07:13] LABS: MEAN CORPUSCULAR HEMOGLOBIN 31.4 pg (27.0-33.0); MEAN CORPUSCULAR HGB CONC 34.1 g/dl (32.0-36.5); RED CELL DISTRIBUTION WIDTH 14.6 % (11.5-14.5); WHITE BLOOD COUNT 7.9 K/mm3 (4.0-10.0)
[2016-06-09 07:29] LABS: ANION GAP 10 MEQ/L (8-16); BLOOD UREA NITROGEN 11 MG/DL (7-18); CALCIUM LEVEL 7.8 MG/DL (8.8-10.2); CARBON DIOXIDE LEVEL 32 MEQ/L (21-32); CHLORIDE LEVEL 99 MEQ/L (98-107); CREATININE FOR GFR 0.92 MG/DL (0.70-1.30); GLOMERULAR FILTRATION RATE > 60.0 (>49); GLUCOSE, FASTING 184 MG/DL (80-110); MAGNESIUM LEVEL 1.9 MG/DL (1.8-2.4); POTASSIUM SERUM 3.6 MEQ/L (3.5-5.1); SODIUM LEVEL 141 MEQ/L (136-145)
[2016-06-09] MEDS: PARoxetine 20 MG TAB NG SCH (09:15)
[2016-06-09] MEDS: MIRALAX *UNIT DOSE* 17GM PACKET TF SCH (09:16)
[2016-06-09] MEDS: SENOKOT S TAB NG SCH ×2 (09:16→20:08)
[2016-06-09] MEDS: PANTOPRAZOLE 40MG INJ (PROTONIX) (C9113) IV SCH (10:04)
[2016-06-09] MEDS: NYSTATIN OINTMENT 15 GM TOP SCH ×2 (10:04→20:09)
--- NOTE | 2016-06-09 13:20 | IPNPDOC ---
Assessment/Plan Date Seen The patient was seen on 06/09/16. Problems Problems: (1) Fluid overload Status: Acute Problem Text: will continue with low dose lasix (2) Sepsis Status: Acute Response to Treatment: Stable Problem Text: aspiration pneumonia pt on zosyn and vancomycin abx therapy (3) Aspiration pneumonia Status: Acute Response to Treatment: Stable Problem Text: swallow study done recommended PEG tube PEG tube placed on 06/07/16 started peg tube feeding this am. (4) Acute respiratory failure with hypoxemia Status: Acute Problem Text: due to aspiration pneumonia and asthma exacerbation continue nebs, antibiotics. (5) Diarrhea Status: Resolved Problem Text: c diff negative. (6) Asthma Status: Chronic Response to Treatment: Stable Problem Text: Nebulizer treatments ordered Pt is not wheezing currently continue to monitor (7) BPH (benign prostatic hyperplasia) Status: Chronic Response to Treatment: Stable Problem Text: continue home medications (8) Parkinson's disease Status: Chronic Problem Text: medications per NG tube (9) DM2 (diabetes mellitus, type 2) Status: Chronic Response to Treatment: Stable Problem Text: diet controlled non insulin dependent will monitor finger sticks insulin as needed (10) Dyslipidemia Status: Chronic Response to Treatment: Stable (11) Down's syndrome Status: Chronic Problem Text: [facility] pt continue with home medications. at baseline can walk to the bathroom with staff, sits in chair and watches tv, makes some noises but otherwise nonverbal. Plan / VTE VTE Prophylaxis Ordered?: Yes Subjective Review of Systems CC/HPI The patient is a 61-year-old male admitted with a reason for visit of Aspiration Pneumonia,Sepsis. Events since last encounter pateint had an episode of hypoxia and sob last night and found to have fluid overload improved with lasix. this am paint has pain t palpation of the abdomen mostly at the surgical site, no fever or chills, requiring oxygen 24 hours a day , at home uses only at night. Objective Physical Examination General Exam: Positive: No Acute Distress, Negative: Alert (pt is sleeping and arousable to voice, unfortunately most of the exam consisted of him grunting and crying out but not making sense with his communication due to his baseline intellectual deficiency ), Cooperative Eye Exam: Positive: Conjunctiva & lids normal, PERRLA, Negative: Ptosis, Sclera icteric ENT Exam: Positive: Atraumatic, Mucous membr. moist/pink Neck Exam: Positive: Supple Chest Exam: Positive: Clear to auscultation, Normal air movement, Rhonchi (RUL) , Negative: Diminished, Wheezing Heart Exam: Positive: Normal S2, Rate Normal Telemetry: Positive: No significant arrhythmia Abdomen Exam: Positive: Normal bowel sounds, Soft, Negative: Hepatospenomegaly, Tenderness Extremity Exam: Negative: Clubbing, Edema Psych Exam: Positive: Other (intellectual deficiency ) Vital Signs/I&O Vital Signs Date Time Temp Pulse Resp B/P Pulse Ox O2 Delivery O2 Flow Rate FiO2 06/09/16 10:20 Nasal Cannula 4.0 06/09/16 06:00 97.1 110 16 118/63 90 06/06/16 06:00 50 I&O- Last 24 Hours up to 6 AM 06/09/16 05:59 Intake Total 746 ml Output Total 1600 ml Balance -854 ml Laboratory Data Labs 24H Laboratory Tests 2 06/08/16 15:12: Vancomycin Level Trough 15.7 06/08/16 17:56: Bedside Glucose (Misc Panel) 186H 06/08/16 21:26: Bedside Glucose (Misc Panel) 124H 06/08/16 23:52: Bedside Glucose (Misc Panel) 138H 06/09/16 03:02: Bedside Glucose (Misc Panel) 103 06/09/16 05:57: Bedside Glucose (Misc Panel) 166H 06/09/16 06:37: Anion Gap 10, C-Reactive Protein, Quantitative 8.96H, Blood Urea Nitrogen 11, Creatinine 0.92, Sodium Level 141, Potassium Level 3.6, Chloride Level 99, Carbon Dioxide Level 32, Calcium Level 7.8L, Glomerular Filtration Rate > 60.0, Magnesium Level 1.9 06/09/16 11:51: Bedside Glucose (Misc Panel) 139H CBC/BMP Laboratory Tests 06/09/16 06:37 Calcium Level 7.8 L, Red Blood Count 3.53 L, Mean Corpuscular Volume 92.0, Mean Corpuscular Hemoglobin 31.4, Mean Corpuscular Hemoglobin Concent 34.1, Red Cell Distribution Width 14.6 H FSBS Laboratory Tests Test 06/08/16 17:56 06/08/16 21:26 06/08/16 23:52 12/30/16 03:02 Range/Units Bedside Glucose (Misc Panel) 186 124 138 103 80-115 MG/DL Test 06/09/16 05:57 06/09/16 11:51 Range/Units Bedside Glucose (Misc Panel) 166 139 80-115 MG/DL Microbiology Microbiology 06/04/16 Blood Culture - Final, Complete NO GROWTH AFTER 5 DAYS 06/04/16 Blood Culture - Final, Complete NO GROWTH AFTER 5 DAYS 06/06/16 Gastrointestinal Tract Panel (PCR) - Final, Complete 06/06/16 MRSA Screen - Final, Complete 06/04/16 Urine Culture - Final, Complete NANDINI VILLAVICENCIO MD Jun 09, 2016 13:20
[2016-06-09 14:00] VITALS: BP 138/60
[2016-06-09] MEDS: PIPERACILLIN/TAZOBACTAM SOD 2.25 GM in D5W MINI-BAG PLUS 50 ML IV SCH ×2 (18:40→23:52)
[2016-06-09] MEDS: ATORVASTATIN 20 MG TAB PO SCH (20:08)
[2016-06-09] MEDS: OLANZapine 5 MG TAB NG SCH (20:08)
[2016-06-09] MEDS: PERCOCET 5MG/325MG TAB PO PRN (20:09)
[2016-06-09 22:00] VITALS: BP 104/51
[2016-06-10] MEDS: IPRATROPIUM 0.5MG/ALBUTEROL 2.5MG INH SOL UD 3ML (DUONEB)(J7620) NEB PRN ×2 (01:06→09:24)
[2016-06-10 01:15] VITALS: BP 114/53
[2016-06-10] MEDS: IPRATROPIUM 0.5MG/ALBUTEROL 2.5MG INH SOL UD 3ML (DUONEB)(J7620) NEB SCH ×4 (01:52→19:21)
[2016-06-10] MEDS: VANCOMYCIN HCL 1,000 MG, VIAL MATE ADAPTER 1 EACH in D5W 250 ML IV SCH (03:47)
[2016-06-10] MEDS: SINEMET 25-100 MG TAB NG SCH ×3 (05:34→18:30)
[2016-06-10] MEDS: PIPERACILLIN/TAZOBACTAM SOD 2.25 GM in D5W MINI-BAG PLUS 50 ML IV SCH ×4 (05:34→23:58)
[2016-06-10] MEDS: SLF 3 ML SYR IV SCH ×3 (05:35→19:57)
[2016-06-10] MEDS: PERCOCET 5MG/325MG TAB PO PRN (05:35)
[2016-06-10] MEDS: HumaLOG INSULIN (NovoLOG) PER UNIT SC SCH ×3 (05:47→18:30)
[2016-06-10 05:56] LABS: MEAN CORPUSCULAR HEMOGLOBIN 30.2 pg (27.0-33.0); MEAN CORPUSCULAR VOLUME 91.6 fl (80.0-96.0); RED CELL DISTRIBUTION WIDTH 15.7 % (11.5-14.5); WHITE BLOOD COUNT 7.2 K/mm3 (4.0-10.0)
[2016-06-10 06:00] VITALS: BP 131/59
[2016-06-10 06:21] LABS: ANION GAP 8 MEQ/L (8-16); BLOOD UREA NITROGEN 15 MG/DL (7-18); CALCIUM LEVEL 8.3 MG/DL (8.8-10.2); CARBON DIOXIDE LEVEL 35 MEQ/L (21-32); CHLORIDE LEVEL 96 MEQ/L (98-107); CREATININE FOR GFR 0.99 MG/DL (0.70-1.30); GLOMERULAR FILTRATION RATE > 60.0 (>49); GLUCOSE, FASTING 239 MG/DL (80-110); MAGNESIUM LEVEL 2.1 MG/DL (1.8-2.4); POTASSIUM SERUM 3.5 MEQ/L (3.5-5.1); SODIUM LEVEL 139 MEQ/L (136-145)
[2016-06-10] MEDS ORDERED: FUROSEMIDE 40 MG/4 ML VIAL (J1940) IV SCH (09:00)
[2016-06-10] MEDS: NYSTATIN OINTMENT 15 GM TOP SCH ×2 (09:05→19:57)
[2016-06-10] MEDS: SENOKOT S TAB NG SCH ×2 (09:05→19:24)
[2016-06-10] MEDS: PANTOPRAZOLE 40MG INJ (PROTONIX) (C9113) IV SCH (09:05)
[2016-06-10] MEDS: MIRALAX *UNIT DOSE* 17GM PACKET TF SCH (09:05)
[2016-06-10] MEDS: PARoxetine 20 MG TAB NG SCH (09:05)
--- NOTE | 2016-06-10 12:14 | IPNPDOC ---
Assessment/Plan Date Seen The patient was seen on 06/10/16. Problems Problems: (1) Acute respiratory failure with hypoxia Status: Acute Problem Text: due to fluid overload and pulmonary edema will continue with lasix 40 iv bid. still requiring oxygen 4 liters. will continue with nebulizations. (2) Sepsis Status: Acute Response to Treatment: Stable Problem Text: aspiration pneumonia pt on zosyn finished vancomycin. (3) Aspiration pneumonia Status: Acute Response to Treatment: Stable Problem Text: swallow study done recommended PEG tube PEG tube placed on 06/07/16 started peg tube feeding continuing. (4) Acute respiratory failure with hypoxemia Status: Acute Problem Text: due to aspiration pneumonia and asthma exacerbation continue nebs, antibiotics. (5) Diarrhea Status: Resolved Problem Text: c diff negative. (6) Asthma Status: Chronic Response to Treatment: Stable Problem Text: Nebulizer treatments ordered Pt is not wheezing currently continue to monitor (7) BPH (benign prostatic hyperplasia) Status: Chronic Response to Treatment: Stable Problem Text: continue home medications (8) Parkinson's disease Status: Chronic Problem Text: medications per NG tube (9) DM2 (diabetes mellitus, type 2) Status: Chronic Response to Treatment: Stable Problem Text: diet controlled non insulin dependent will monitor finger sticks insulin as needed (10) Dyslipidemia Status: Chronic Response to Treatment: Stable (11) Down's syndrome Status: Chronic Problem Text: C pt continue with home medications. at baseline can walk to the bathroom with staff, sits in chair and watches tv, makes some noises but otherwise nonverbal. Plan / VTE VTE Prophylaxis Ordered?: Yes Subjective Review of Systems CC/HPI The patient is a 61-year-old male admitted with a reason for visit of Aspiration Pneumonia,Sepsis. Events since last encounter continues to be hypoxic requiring 4 l of oxygen , also significant abdominal tenderness, no fever or chills noted, still more sleepy than usual Objective Physical Examination General Exam: Positive: No Acute Distress, Negative: Alert (pt is sleeping and arousable to voice, unfortunately most of the exam consisted of him grunting and crying out but not making sense with his communication due to his baseline intellectual deficiency ), Cooperative Eye Exam: Positive: Conjunctiva & lids normal, PERRLA, Negative: Ptosis, Sclera icteric ENT Exam: Positive: Atraumatic, Mucous membr. moist/pink Neck Exam: Positive: Supple Chest Exam: Positive: Clear to auscultation, Normal air movement, Rhonchi (RUL) , Negative: Diminished, Wheezing Heart Exam: Positive: Normal S2, Rate Normal Telemetry: Positive: No significant arrhythmia Abdomen Exam: Positive: Normal bowel sounds, Soft, Negative: Hepatospenomegaly, Tenderness Extremity Exam: Negative: Clubbing, Edema Psych Exam: Positive: Other (intellectual deficiency ) Vital Signs/I&O Vital Signs Date Time Temp Pulse Resp B/P Pulse Ox O2 Delivery O2 Flow Rate FiO2 06/10/16 06:05 14 06/10/16 06:00 98.8 103 131/59 92 Nasal Cannula 4.0 06/06/16 06:00 50 I&O- Last 24 Hours up to 6 AM 06/10/16 06:00 Intake Total 250 ml Output Total 275 ml Balance -25 ml Laboratory Data Labs 24H Laboratory Tests 2 06/09/16 18:20: Bedside Glucose (Misc Panel) 176H 06/09/16 23:34: Bedside Glucose (Misc Panel) 129H 06/10/16 05:36: Bedside Glucose (Misc Panel) 254H 06/10/16 05:41: Anion Gap 8, C-Reactive Protein, Quantitative 11.60H, Blood Urea Nitrogen 15, Creatinine 0.99, Sodium Level 139, Potassium Level 3.5, Chloride Level 96L, Carbon Dioxide Level 35H, Calcium Level 8.3L, Glomerular Filtration Rate > 60.0 , Magnesium Level 2.1 06/10/16 11:49: Bedside Glucose (Misc Panel) 128H CBC/BMP Laboratory Tests 06/10/16 05:41 Calcium Level 8.3 L, Red Blood Count 3.53 L, Mean Corpuscular Volume 91.6, Mean Corpuscular Hemoglobin 30.2, Mean Corpuscular Hemoglobin Concent 33.0, Red Cell Distribution Width 15.7 H FSBS Laboratory Tests Test 06/09/16 18:20 06/09/16 23:34 06/10/16 05:36 06/10/16 11:49 Range/Units Bedside Glucose (Misc Panel) 176 129 254 128 80-115 MG/DL Microbiology Microbiology 06/04/16 Blood Culture - Final, Complete NO GROWTH AFTER 5 DAYS 06/04/16 Blood Culture - Final, Complete NO GROWTH AFTER 5 DAYS 06/06/16 Gastrointestinal Tract Panel (PCR) - Final, Complete 06/06/16 MRSA Screen - Final, Complete 06/04/16 Urine Culture - Final, Complete NANDINI VILLAVICENCIO MD Jun 10, 2016 12:14
[2016-06-10] MEDS: KETOROLAC 30 MG/ML VIAL (J1885) IV SCH ×2 (12:38→19:55)
[2016-06-10] MEDS: FUROSEMIDE 40 MG/4 ML VIAL (J1940) IV SCH ×2 (12:40→19:55)
[2016-06-10 14:00] VITALS: BP 128/65
[2016-06-10] MEDS: OLANZapine 5 MG TAB NG SCH (19:56)
[2016-06-10] MEDS: ATORVASTATIN 20 MG TAB PO SCH (19:56)
[2016-06-10 22:00] VITALS: BP 140/58
[2016-06-11] MEDS: HumaLOG INSULIN (NovoLOG) PER UNIT SC SCH ×4 (00:08→18:00)
[2016-06-11 02:00] VITALS: BP 138/53
[2016-06-11] MEDS: KETOROLAC 30 MG/ML VIAL (J1885) IV SCH ×3 (05:11→21:34)
[2016-06-11] MEDS: SINEMET 25-100 MG TAB NG SCH ×3 (05:12→21:34)
[2016-06-11] MEDS: PIPERACILLIN/TAZOBACTAM SOD 2.25 GM in D5W MINI-BAG PLUS 50 ML IV SCH (05:12)
[2016-06-11] MEDS: SLF 3 ML SYR IV SCH ×3 (05:12→21:35)
[2016-06-11 06:00] VITALS: BP 145/62
[2016-06-11 06:29] LABS: MEAN CORPUSCULAR HEMOGLOBIN 30.5 pg (27.0-33.0); MEAN CORPUSCULAR HGB CONC 33.2 g/dl (32.0-36.5); MEAN CORPUSCULAR VOLUME 91.7 fl (80.0-96.0); RED CELL DISTRIBUTION WIDTH 14.8 % (11.5-14.5); WHITE BLOOD COUNT 4.9 K/mm3 (4.0-10.0)
[2016-06-11 06:37] LABS: ANION GAP 8 MEQ/L (8-16); BLOOD UREA NITROGEN 22 MG/DL (7-18); CALCIUM LEVEL 7.7 MG/DL (8.8-10.2); CARBON DIOXIDE LEVEL 37 MEQ/L (21-32); CHLORIDE LEVEL 97 MEQ/L (98-107); CREATININE FOR GFR 1.06 MG/DL (0.70-1.30); GLOMERULAR FILTRATION RATE > 60.0 (>49); GLUCOSE, FASTING 176 MG/DL (80-110); MAGNESIUM LEVEL 2.1 MG/DL (1.8-2.4); POTASSIUM SERUM 3.3 MEQ/L (3.5-5.1); SODIUM LEVEL 142 MEQ/L (136-145)
[2016-06-11] MEDS ORDERED: POTASSIUM CHLORIDE 10 MEQ SR TABLET PO ONE (07:00)
[2016-06-11] MEDS: IPRATROPIUM 0.5MG/ALBUTEROL 2.5MG INH SOL UD 3ML (DUONEB)(J7620) NEB SCH ×3 (07:06→18:59)
[2016-06-11] MEDS: PANTOPRAZOLE 40MG INJ (PROTONIX) (C9113) IV SCH (11:25)
[2016-06-11] MEDS: PARoxetine 20 MG TAB NG SCH (11:25)
[2016-06-11] MEDS: FUROSEMIDE 40 MG/4 ML VIAL (J1940) IV SCH ×2 (11:25→21:33)
[2016-06-11] MEDS: ACETAMINOPHEN TAB 650MG DOSE (2X325MG) PO PRN ×2 (11:25→21:35)
[2016-06-11] MEDS: MIRALAX *UNIT DOSE* 17GM PACKET TF SCH (11:26)
[2016-06-11] MEDS: SENOKOT S TAB NG SCH ×2 (11:26→21:35)
[2016-06-11] MEDS: NYSTATIN OINTMENT 15 GM TOP SCH ×2 (11:27→21:35)
[2016-06-11] MEDS ORDERED: GASTROGRAFIN SOLUTION 30ML PO ONE (13:30)
--- NOTE | 2016-06-11 13:57 | IPNPDOC ---
Assessment/Plan Date Seen The patient was seen on 06/11/16. Problems Problems: (1) Abdominal pain Status: Acute Problem Text: will continue with Toradol seems more than expected post surgical. will get ct abdomen (2) Acute respiratory failure with hypoxia Status: Acute Problem Text: due to fluid overload and pulmonary edema will continue with lasix 40 iv bid. still requiring oxygen 4 liters. will continue with nebulizations. (3) Sepsis Status: Acute Response to Treatment: Stable Problem Text: aspiration pneumonia pt on zosyn finished vancomycin. (4) Aspiration pneumonia Status: Acute Response to Treatment: Stable Problem Text: swallow study done recommended PEG tube PEG tube placed on 06/07/16 started peg tube feeding continuing. (5) Acute respiratory failure with hypoxemia Status: Acute Problem Text: due to aspiration pneumonia and asthma exacerbation continue nebs, antibiotics. (6) Diarrhea Status: Resolved Problem Text: c diff negative. (7) Asthma Status: Chronic Response to Treatment: Stable Problem Text: Nebulizer treatments ordered Pt is not wheezing currently continue to monitor (8) BPH (benign prostatic hyperplasia) Status: Chronic Response to Treatment: Stable Problem Text: continue home medications (9) Parkinson's disease Status: Chronic Problem Text: medications per NG tube (10) DM2 (diabetes mellitus, type 2) Status: Chronic Response to Treatment: Stable Problem Text: diet controlled non insulin dependent will monitor finger sticks insulin as needed (11) Dyslipidemia Status: Chronic Response to Treatment: Stable (12) Down's syndrome Status: Chronic Problem Text: [facility] pt continue with home medications. at baseline can walk to the bathroom with staff, sits in chair and watches tv, makes some noises but otherwise nonverbal. Plan / VTE VTE Prophylaxis Ordered?: Yes Subjective Review of Systems CC/HPI The patient is a 61-year-old male admitted with a reason for visit of Aspiration Pneumonia,Sepsis. Events since last encounter continues to have abdomina pain , however breathing a litle better, requiring less oxygen , will get ct abdomen. Objective Physical Examination General Exam: Positive: No Acute Distress, Negative: Alert (pt is sleeping and arousable to voice, unfortunately most of the exam consisted of him grunting and crying out but not making sense with his communication due to his baseline intellectual deficiency ), Cooperative Eye Exam: Positive: Conjunctiva & lids normal, PERRLA, Negative: Ptosis, Sclera icteric ENT Exam: Positive: Atraumatic, Mucous membr. moist/pink Neck Exam: Positive: Supple Chest Exam: Positive: Clear to auscultation, Normal air movement, Rhonchi (RUL) , Negative: Diminished, Wheezing Heart Exam: Positive: Normal S2, Rate Normal Telemetry: Positive: No significant arrhythmia Abdomen Exam: Positive: Normal bowel sounds, Soft, Negative: Hepatospenomegaly, Tenderness Extremity Exam: Negative: Clubbing, Edema Psych Exam: Positive: Other (intellectual deficiency ) Vital Signs/I&O Vital Signs Date Time Temp Pulse Resp B/P Pulse Ox O2 Delivery O2 Flow Rate FiO2 06/11/16 11:57 Nasal Cannula 4.0 06/11/16 09:30 95 06/11/16 06:00 97.6 95 15 145/62 06/06/16 06:00 50 I&O- Last 24 Hours up to 6 AM 06/11/16 06:00 Intake Total 1185 ml Balance 1185 ml Laboratory Data Labs 24H Laboratory Tests 2 06/10/16 18:23: Bedside Glucose (Misc Panel) 160H 06/11/16 00:05: Bedside Glucose (Misc Panel) 180H 06/11/16 00:50: Bedside Glucose (Misc Panel) 187H 06/11/16 05:53: Anion Gap 8, Blood Urea Nitrogen 22H, Creatinine 1.06, Sodium Level 142, Potassium Level 3.3L, Chloride Level 97L, Carbon Dioxide Level 37H, Calcium Level 7.7L, Glomerular Filtration Rate > 60.0, Magnesium Level 2.1 06/11/16 05:58: Bedside Glucose (Misc Panel) 166H 06/11/16 11:55: Bedside Glucose (Misc Panel) 173H CBC/BMP Laboratory Tests 06/11/16 05:53 Calcium Level 7.7 L, Red Blood Count 3.24 L, Mean Corpuscular Volume 91.7, Mean Corpuscular Hemoglobin 30.5, Mean Corpuscular Hemoglobin Concent 33.2, Red Cell Distribution Width 14.8 H FSBS Laboratory Tests Test 06/10/16 18:23 06/11/16 00:05 06/11/16 00:50 06/11/16 05:58 Range/Units Bedside Glucose (Misc Panel) 160 180 187 166 80-115 MG/DL Test 06/11/16 11:55 Range/Units Bedside Glucose (Misc Panel) 173 80-115 MG/DL Microbiology Microbiology 06/04/16 Blood Culture - Final, Complete NO GROWTH AFTER 5 DAYS 06/04/16 Blood Culture - Final, Complete NO GROWTH AFTER 5 DAYS 06/06/16 Gastrointestinal Tract Panel (PCR) - Final, Complete 06/06/16 MRSA Screen - Final, Complete 06/04/16 Urine Culture - Final, Complete NANDINI VILLAVICENCIO MD Jun 11, 2016 13:57
[2016-06-11 14:00] VITALS: BP 141/57
[2016-06-11] MEDS ORDERED: GASTROGRAFIN SOLUTION 30ML (Q9963) PO ONE (14:00)
--- NOTE | 2016-06-11 15:56 | REP ---
Clinical: Abdominal pain. Comparison: 01/28/2016. Findings: Lung bases demonstrate moderate bilateral lower lobe consolidations and small right pleural effusion compatible with multifocal pneumonia. Visualized portions of the heart remains stable. Liver, spleen, pancreas, gallbladder, bilateral adrenal glands and kidneys are normal for noncontrast examination. Peg tube identified within collapsed stomach. No evidence for bowel obstruction or acute inflammatory process. A left inguinal hernia contains nonobstructed sigmoid colon and right inguinal hernia contains nonobstructed loop of small bowel. Pelvis demonstrates a normal bladder and age appropriate prostate/seminal vesicles. No ascites. No free air. No obvious adenopathy. Abdominal aorta demonstrates mild atherosclerotic changes without aneurysm. Musculoskeletal structures demonstrate degenerative changes without focal osseous abnormality. Impression: 1. Bibasilar consolidations and small right pleural effusion consistent with multifocal pneumonia. 2. Inguinal hernias containing nonobstructed small bowel on the right and nonobstructed sigmoid colon on the left. 3. No acute intra-abdominal or pelvic pathology otherwise appreciated. Signed by Steven Rossi MD 06/11/2016 03:48 P
[2016-06-11] MEDS: ATORVASTATIN 20 MG TAB PO SCH (21:34)
[2016-06-11] MEDS: OLANZapine 5 MG TAB NG SCH (21:35)
[2016-06-11 22:00] VITALS: BP 130/61
[2016-06-12] MEDS: HumaLOG INSULIN (NovoLOG) PER UNIT SC SCH ×4 (01:19→18:00)
[2016-06-12] MEDS: IPRATROPIUM 0.5MG/ALBUTEROL 2.5MG INH SOL UD 3ML (DUONEB)(J7620) NEB SCH ×4 (02:50→20:32)
[2016-06-12 06:00] VITALS: BP 128/58
[2016-06-12] MEDS: SINEMET 25-100 MG TAB NG SCH ×3 (06:27→18:28)
[2016-06-12] MEDS: SLF 3 ML SYR IV SCH ×3 (06:27→21:31)
[2016-06-12] MEDS: KETOROLAC 30 MG/ML VIAL (J1885) IV SCH ×3 (06:27→21:30)
[2016-06-12] MEDS: NYSTATIN OINTMENT 15 GM TOP SCH ×2 (09:00→21:31)
[2016-06-12] MEDS: MIRALAX *UNIT DOSE* 17GM PACKET TF SCH (09:00)
[2016-06-12] MEDS: SENOKOT S TAB NG SCH ×2 (09:00→21:30)
[2016-06-12 10:00] VITALS: BP 130/66
[2016-06-12] MEDS: PARoxetine 20 MG TAB NG SCH (10:00)
[2016-06-12] MEDS: PANTOPRAZOLE 40MG INJ (PROTONIX) (C9113) IV SCH (10:00)
[2016-06-12] MEDS: FUROSEMIDE 40 MG/4 ML VIAL (J1940) IV SCH ×2 (10:00→21:30)
--- NOTE | 2016-06-12 12:39 | IPNPDOC ---
Assessment/Plan Date Seen The patient was seen on 06/12/16. Problems Problems: (1) Acute respiratory failure with hypoxemia Status: Acute Problem Text: due to pulmonary edma , fluid overload and aspiration pneumonia. Also asthma exacerbation. continue nebs, antibiotics and lasix (2) Aspiration pneumonia Status: Acute Response to Treatment: Stable Problem Text: finished 7 day treatment with zosyn and voncomycin now started on levofloxacin for 5 more days PEG tube placed on 06/07/16 started peg tube feeding continuing. (3) Abdominal pain Status: Acute Response to Treatment: Improving Problem Text: will continue with Toradol will get ct abdomen negative for any intraabdominal pathology (4) Sepsis Status: Acute Response to Treatment: Stable Problem Text: aspiration pneumonia pt on zosyn finished vancomycin. (5) Diarrhea Status: Resolved Problem Text: c diff negative. (6) Asthma Status: Chronic Response to Treatment: Stable Problem Text: Nebulizer treatments ordered Pt is not wheezing currently continue to monitor (7) BPH (benign prostatic hyperplasia) Status: Chronic Response to Treatment: Stable Problem Text: continue home medications (8) Parkinson's disease Status: Chronic Problem Text: medications per NG tube (9) DM2 (diabetes mellitus, type 2) Status: Chronic Response to Treatment: Stable Problem Text: diet controlled non insulin dependent will monitor finger sticks insulin as needed (10) Dyslipidemia Status: Chronic Response to Treatment: Stable (11) Down's syndrome Status: Chronic Problem Text: [facility] pt continue with home medications. at baseline can walk to the bathroom with staff, sits in chair and watches tv, makes some noises but otherwise nonverbal. Plan / VTE VTE Prophylaxis Ordered?: Yes Subjective Review of Systems CC/HPI The patient is a 61-year-old male admitted with a reason for visit of Aspiration Pneumonia,Sepsis. Events since last encounter looks more comfortable today however still requiring 4 liters oxygen Objective Physical Examination General Exam: Positive: No Acute Distress, Negative: Alert (pt is sleeping and arousable to voice, unfortunately most of the exam consisted of him grunting and crying out but not making sense with his communication due to his baseline intellectual deficiency ), Cooperative Eye Exam: Positive: Conjunctiva & lids normal, PERRLA, Negative: Ptosis, Sclera icteric ENT Exam: Positive: Atraumatic, Mucous membr. moist/pink Neck Exam: Positive: Supple Chest Exam: Positive: Clear to auscultation, Normal air movement, Rhonchi (RUL) , Negative: Diminished, Wheezing Heart Exam: Positive: Normal S2, Rate Normal Telemetry: Positive: No significant arrhythmia Abdomen Exam: Positive: Normal bowel sounds, Soft, Negative: Hepatospenomegaly, Tenderness Extremity Exam: Negative: Clubbing, Edema Psych Exam: Positive: Other (intellectual deficiency ) Vital Signs/I&O Vital Signs Date Time Temp Pulse Resp B/P Pulse Ox O2 Delivery O2 Flow Rate FiO2 06/12/16 06:00 95.7 77 16 128/58 98 Nasal Cannula 4.0 06/06/16 06:00 50 I&O- Last 24 Hours up to 6 AM 06/12/16 06:00 Intake Total 0 ml Balance 0 ml Laboratory Data Labs 24H Laboratory Tests 2 06/11/16 18:24: Bedside Glucose (Misc Panel) 108 06/12/16 00:45: Bedside Glucose (Misc Panel) 167H 06/12/16 06:23: Bedside Glucose (Misc Panel) 198H FSBS Laboratory Tests Test 06/11/16 18:24 06/12/16 00:45 06/12/16 06:23 Range/Units Bedside Glucose (Misc Panel) 108 167 198 80-115 MG/DL Microbiology Microbiology 06/04/16 Blood Culture - Final, Complete NO GROWTH AFTER 5 DAYS 06/04/16 Blood Culture - Final, Complete NO GROWTH AFTER 5 DAYS 06/06/16 Gastrointestinal Tract Panel (PCR) - Final, Complete 06/06/16 MRSA Screen - Final, Complete 06/04/16 Urine Culture - Final, Complete NANDINI VILLAVICENCIO MD Jun 12, 2016 12:39
[2016-06-12] MEDS ORDERED: GASTROGRAFIN SOLUTION 30ML PO ONE (13:10)
[2016-06-12] MEDS ORDERED: GASTROGRAFIN SOLUTION 30ML (Q9963) PO ONE (13:40)
[2016-06-12 14:00] VITALS: BP 126/61
[2016-06-12] MEDS: LevoFLOXacin 500 MG TABLET PO SCH (14:42)
[2016-06-12] MEDS: POTASSIUM CHLORIDE 10 MEQ SR TABLET PO SCH (14:42)
[2016-06-12] MEDS: NS 1,000 ML IV SCH (14:43)
[2016-06-12] MEDS: ATORVASTATIN 20 MG TAB PO SCH (21:30)
[2016-06-12] MEDS: OLANZapine 5 MG TAB NG SCH (21:30)
[2016-06-12 22:00] VITALS: BP 115/54
[2016-06-13] MEDS: IPRATROPIUM 0.5MG/ALBUTEROL 2.5MG INH SOL UD 3ML (DUONEB)(J7620) NEB SCH ×4 (02:00→20:00)
[2016-06-13] MEDS: KETOROLAC 30 MG/ML VIAL (J1885) IV SCH ×3 (05:46→21:41)
[2016-06-13] MEDS: SINEMET 25-100 MG TAB NG SCH ×3 (05:46→18:30)
[2016-06-13] MEDS: LevoFLOXacin 500 MG TABLET PO SCH (05:47)
[2016-06-13 06:00] VITALS: BP 121/56
[2016-06-13] MEDS: SLF 3 ML SYR IV SCH ×3 (06:00→21:42)
[2016-06-13] MEDS: HumaLOG INSULIN (NovoLOG) PER UNIT SC SCH ×4 (06:00→18:30)
[2016-06-13 06:30] LABS: BASO % 1.3 % (0.0-1.0); EOS # 0.2 K/mm3 (0.0-0.50); EOS % 4.2 % (0.0-3.0); LARGE UNSTAINED CELL # 0.1 K/mm3 (0.0-0.4); LARGE UNSTAINED CELL % 3.5 % (0.0-4.0); LYMPH # 1.1 K/mm3 (1.5-4.5); LYMPH % 26.3 % (24.0-44.0); MEAN CORPUSCULAR HEMOGLOBIN 29.7 pg (27.0-33.0); MEAN CORPUSCULAR HGB CONC 32.3 g/dl (32.0-36.5); MONO # 0.3 K/mm3 (0.0-0.8); MONO % 6.4 % (0.0-5.0); NEUTROPHILS # 2.3 K/mm3 (1.8-7.7); NEUTROPHILS % 58.4 % (36.0-66.0); PLATELET COUNT, AUTOMATED 167 k/mm3 (150-450); RED CELL DISTRIBUTION WIDTH 14.6 % (11.5-14.5)
[2016-06-13 06:43] LABS: ANION GAP 9 MEQ/L (8-16); BLOOD UREA NITROGEN 27 MG/DL (7-18); CALCIUM LEVEL 8.4 MG/DL (8.8-10.2); CARBON DIOXIDE LEVEL 35 MEQ/L (21-32); CHLORIDE LEVEL 99 MEQ/L (98-107); CREATININE FOR GFR 1.04 MG/DL (0.70-1.30); GLOMERULAR FILTRATION RATE > 60.0 (>49); GLUCOSE, FASTING 128 MG/DL (80-110); POTASSIUM SERUM 4.1 MEQ/L (3.5-5.1); SODIUM LEVEL 143 MEQ/L (136-145)
[2016-06-13] MEDS: PARoxetine 20 MG TAB NG SCH (08:59)
[2016-06-13] MEDS: PANTOPRAZOLE 40MG INJ (PROTONIX) (C9113) IV SCH (08:59)
[2016-06-13] MEDS: SENOKOT S TAB NG SCH (08:59)
[2016-06-13] MEDS: ACETAMINOPHEN TAB 650MG DOSE (2X325MG) PO PRN (08:59)
[2016-06-13] MEDS: FUROSEMIDE 40 MG/4 ML VIAL (J1940) IV SCH ×2 (08:59→21:40)
[2016-06-13] MEDS: POTASSIUM CHLORIDE 10 MEQ SR TABLET PO SCH (09:00)
[2016-06-13] MEDS: MIRALAX *UNIT DOSE* 17GM PACKET TF SCH (09:00)
[2016-06-13] MEDS: NYSTATIN OINTMENT 15 GM TOP SCH (09:00)
[2016-06-13 14:00] VITALS: BP 127/62
[2016-06-13] MEDS: NYSTATIN 100,000 UNITS/GM TOPICAL PWD 15 GM TOP SCH ×2 (14:09→21:40)
[2016-06-13] MEDS: NS 1,000 ML IV SCH (14:15)
[2016-06-13] MEDS: ATORVASTATIN 20 MG TAB PO SCH (21:41)
[2016-06-13] MEDS: OLANZapine 5 MG TAB NG SCH (21:41)
[2016-06-13] MEDS: LOMOTIL 2.5MG/0.025MG TABLET PO SCH (21:41)
[2016-06-14] VITALS (9 sets, daily range): BP systolic 100–139; BP diastolic 50–88
[2016-06-14] MEDS: HumaLOG INSULIN (NovoLOG) PER UNIT SC SCH ×5 (00:45→23:55)
[2016-06-14] MEDS: IPRATROPIUM 0.5MG/ALBUTEROL 2.5MG INH SOL UD 3ML (DUONEB)(J7620) NEB SCH ×4 (02:00→20:35)
[2016-06-14] MEDS: SLF 3 ML SYR IV SCH ×3 (06:00→21:31)
[2016-06-14] MEDS: KETOROLAC 30 MG/ML VIAL (J1885) IV SCH (06:13)
[2016-06-14] MEDS: SINEMET 25-100 MG TAB NG SCH ×3 (06:13→21:33)
[2016-06-14] MEDS: LevoFLOXacin 500 MG TABLET PO SCH (06:13)
[2016-06-14 06:43] LABS: BASO % 0.6 % (0.0-1.0); EOS # 0.2 K/mm3 (0.0-0.50); EOS % 4.6 % (0.0-3.0); LARGE UNSTAINED CELL # 0.1 K/mm3 (0.0-0.4); LARGE UNSTAINED CELL % 3.6 % (0.0-4.0); LYMPH # 0.8 K/mm3 (1.5-4.5); LYMPH % 24.2 % (24.0-44.0); MEAN CORPUSCULAR HEMOGLOBIN 29.9 pg (27.0-33.0); MEAN CORPUSCULAR HGB CONC 32.6 g/dl (32.0-36.5); MEAN CORPUSCULAR VOLUME 91.6 fl (80.0-96.0); MONO # 0.2 K/mm3 (0.0-0.8); NEUTROPHILS % 60.1 % (36.0-66.0); PLATELET COUNT, AUTOMATED 185 k/mm3 (150-450); RED CELL DISTRIBUTION WIDTH 14.7 % (11.5-14.5); WHITE BLOOD COUNT 3.3 K/mm3 (4.0-10.0)
[2016-06-14 06:54] LABS: ANION GAP 8 MEQ/L (8-16); BLOOD UREA NITROGEN 33 MG/DL (7-18); CALCIUM LEVEL 8.5 MG/DL (8.8-10.2); CARBON DIOXIDE LEVEL 32 MEQ/L (21-32); CHLORIDE LEVEL 103 MEQ/L (98-107); CREATININE FOR GFR 1.18 MG/DL (0.70-1.30); GLOMERULAR FILTRATION RATE > 60.0 (>49); GLUCOSE, FASTING 171 MG/DL (80-110); POTASSIUM SERUM 4.1 MEQ/L (3.5-5.1); SODIUM LEVEL 143 MEQ/L (136-145)
[2016-06-14] MEDS ORDERED: FUROSEMIDE 40 MG TAB PEG SCH (09:00)
[2016-06-14] MEDS: PARoxetine 20 MG TAB NG SCH (09:00)
--- NOTE | 2016-06-14 09:00 | IPNPDOC ---
Assessment/Plan Date Seen The patient was seen on 06/14/16. Problems Problems: (1) Acute respiratory failure with hypoxemia Status: Resolved Problem Text: * due to pulmonary edma , fluid overload and aspiration pneumonia. Also asthma exacerbation. * continue nebs, lasix and levaquin * titrate oxygen to keep sat 88-92 (2) Aspiration pneumonia Status: Acute Response to Treatment: Stable Problem Text: finished 7 day treatment with zosyn and vancomycin now started on levofloxacin for 5 more days PEG tube placed on 06/07/16 (3) Abdominal pain Status: Acute Response to Treatment: Improving Problem Text: will continue with Toradol (4) Sepsis Status: Resolved Response to Treatment: Stable Problem Text: aspiration pneumonia (5) Diarrhea Status: Resolved Problem Text: c diff negative. (6) Asthma Status: Chronic Response to Treatment: Stable Problem Text: Nebulizer treatments ordered Pt is not wheezing currently continue to monitor (7) BPH (benign prostatic hyperplasia) Status: Chronic Response to Treatment: Stable Problem Text: continue home medications (8) Parkinson's disease Status: Chronic Problem Text: medications per NG tube (9) DM2 (diabetes mellitus, type 2) Status: Chronic Response to Treatment: Stable Problem Text: diet controlled non insulin dependent will monitor finger sticks insulin as needed (10) Dyslipidemia Status: Chronic Response to Treatment: Stable (11) Down's syndrome Status: Chronic Problem Text: [facility] pt continue with home medications. at baseline can walk to the bathroom with staff, sits in chair and watches tv, makes some noises but otherwise nonverbal. (12) Irritation around percutaneous endoscopic gastrostomy (PEG) tube site Status: Acute Problem Text: * there appears to be stool around the PEG tube site, * CT was negative for fistula, Dr Paige evaluated pt and believes tube likely crossed the transverse colon * he recommended to continue tube feeds and will see pt outpt after discharge for possible replacement Plan / VTE VTE Prophylaxis Ordered?: Yes Subjective Review of Systems CC/HPI The patient is a 61-year-old male admitted with a reason for visit of Aspiration Pneumonia,Sepsis. General: Reports: ROS Unobtainable Objective Physical Examination General Exam: Positive: No Acute Distress, Negative: Alert (pt is sleeping and arousable to voice, unfortunately most of the exam consisted of him grunting and crying out but not making sense with his communication due to his baseline intellectual deficiency ), Cooperative Eye Exam: Positive: Conjunctiva & lids normal, PERRLA, Negative: Ptosis, Sclera icteric ENT Exam: Positive: Atraumatic, Mucous membr. moist/pink Neck Exam: Positive: Supple Chest Exam: Positive: Clear to auscultation, Normal air movement, Negative: Diminished, Wheezing Heart Exam: Positive: Normal S2, Rate Normal Telemetry: Positive: No significant arrhythmia Abdomen Exam: Positive: Normal bowel sounds, Soft, Negative: Hepatospenomegaly, Tenderness Extremity Exam: Negative: Clubbing, Edema Psych Exam: Positive: Other (intellectual deficiency ) Vital Signs/I&O Vital Signs Date Time Temp Pulse Resp B/P Pulse Ox O2 Delivery O2 Flow Rate FiO2 06/14/16 06:00 96.2 75 18 139/88 97 Room Air 06/14/16 05:42 2.0 I&O- Last 24 Hours up to 6 AM 06/14/16 06:00 Intake Total 1753 ml Balance 1753 ml Laboratory Data Labs 24H Laboratory Tests 2 06/13/16 12:21: Bedside Glucose (Misc Panel) 178H 06/13/16 18:16: Bedside Glucose (Misc Panel) 176H 06/14/16 00:40: Bedside Glucose (Misc Panel) 163H 06/14/16 06:18: Anion Gap 8, White Blood Count 3.3L, Red Blood Count 3.52L, Hemoglobin 10.5L, Hematocrit 32.2L, Mean Corpuscular Volume 91.6, Mean Corpuscular Hemoglobin 29.9 , Mean Corpuscular Hemoglobin Concent 32.6, Red Cell Distribution Width 14.7H, Platelet Count 185, Neutrophils (%) (Auto) 60.1, Lymphocytes (%) (Auto) 24.2, Monocytes (%) (Auto) 7.0H, Eosinophils (%) (Auto) 4.6H, Basophils (%) (Auto) 0.6 , Neutrophils # (Auto) 2.0, Lymphocytes # (Auto) 0.8L, Monocytes # (Auto) 0.2, Eosinophils # (Auto) 0.2, Basophils # (Auto) 0.0, Blood Urea Nitrogen 33H, Creatinine 1.18, Sodium Level 143, Potassium Level 4.1, Chloride Level 103, Carbon Dioxide Level 32, Calcium Level 8.5L, Glomerular Filtration Rate > 60.0, Large Unclassified Cells # 0.1, Large Unclassified Cells % 3.6 CBC/BMP Laboratory Tests 06/14/16 06:18 Calcium Level 8.5 L, Red Blood Count 3.52 L, Mean Corpuscular Volume 91.6, Mean Corpuscular Hemoglobin 29.9, Mean Corpuscular Hemoglobin Concent 32.6, Red Cell Distribution Width 14.7 H, Neutrophils (%) (Auto) 60.1, Lymphocytes (%) (Auto) 24.2, Monocytes (%) (Auto) 7.0 H, Eosinophils (%) (Auto) 4.6 H, Basophils (%) ( Auto) 0.6, Neutrophils # (Auto) 2.0, Lymphocytes # (Auto) 0.8 L, Monocytes # ( Auto) 0.2, Eosinophils # (Auto) 0.2, Basophils # (Auto) 0.0 FSBS Laboratory Tests Test 06/13/16 12:21 06/13/16 18:16 06/14/16 00:40 Range/Units Bedside Glucose (Misc Panel) 178 176 163 80-115 MG/DL Microbiology Microbiology 06/04/16 Blood Culture - Final, Complete NO GROWTH AFTER 5 DAYS 06/04/16 Blood Culture - Final, Complete NO GROWTH AFTER 5 DAYS 06/06/16 Gastrointestinal Tract Panel (PCR) - Final, Complete 06/06/16 MRSA Screen - Final, Complete 06/04/16 Urine Culture - Final, Complete YOVANNY REAVES DO Jun 14, 2016 09:00
--- NOTE | 2016-06-14 10:26 | REP ---
PORTABLE CHEST: AP portable view of the chest is performed and compared to prior studies most recent of which is 06/09/2016. There is again cardiomegaly and vascular congestion with diffuse infiltrates compatible with CHF and pulmonary edema. Findings appear essentially unchanged. Mediastinal silhouette is unchanged. IMPRESSION: Stable findings compatible with cardiomegaly, CHF, and pulmonary edema. Signed by Tirso Pickering MD 06/14/2016 05:20 P
[2016-06-14 10:32] LABS: ABG BASE EXCESS 4.3 (-2.0-2.0); ABG HCO3 29.6 MEQ/L (22.0-26.0); ABG PARTIAL PRESSURE CO2 47.7 mmHg (35.0-45.0); ABG PARTIAL PRESSURE O2 67.3 mmHg (75.0-100.0); ABG STANDARD HCO3 28.2 MEQ/L (22.0-26.0); ABG TOTAL CO2 31.1 MEQ/L (23.0-31.0); ABG pH (ARTERIAL) 7.411 UNITS (7.350-7.450)
[2016-06-14] MEDS ORDERED: FUROSEMIDE 40 MG/4 ML VIAL (J1940) IV SCH (11:00)
[2016-06-14] MEDS: PANTOPRAZOLE 40MG INJ (PROTONIX) (C9113) IV SCH (11:06)
[2016-06-14] MEDS: LOMOTIL 2.5MG/0.025MG TABLET PO SCH ×2 (11:07→21:23)
[2016-06-14] MEDS: NYSTATIN 100,000 UNITS/GM TOPICAL PWD 15 GM TOP SCH ×2 (11:07→21:30)
[2016-06-14] MEDS: POTASSIUM CHLORIDE 10 MEQ SR TABLET PO SCH (11:07)
[2016-06-14 15:19] LABS: ABG BASE EXCESS 4.4 (-2.0-2.0); ABG HCO3 29.7 MEQ/L (22.0-26.0); ABG PARTIAL PRESSURE CO2 47.2 mmHg (35.0-45.0); ABG PARTIAL PRESSURE O2 100.7 mmHg (75.0-100.0); ABG STANDARD HCO3 28.4 MEQ/L (22.0-26.0); ABG TOTAL CO2 31.1 MEQ/L (23.0-31.0); ABG pH (ARTERIAL) 7.416 UNITS (7.350-7.450)
--- NOTE | 2016-06-14 18:46 | IPNPDOC ---
Assessment/Plan Date Seen The patient was seen on 06/14/16. Problems Problems: (1) Lethargy Status: Acute Problem Text: * unknown etiology, * pt is slightly hypercapnic, vs infection vs neurological (2) Occasional tremors Status: Acute Problem Text: will give loading dose of keppra consult dr arizmendi order EEG for tomorrow CT scan of head (3) Acute respiratory failure with hypoxemia Status: Acute Problem Text: * due to pulmonary edema , fluid overload and aspiration pneumonia. Also asthma exacerbation. * pt was transferred to ICU for cpap, per pulm pt doesn't' require cpap but he was started on 100%nonrebreather to maintain oxygen above 90 (4) Aspiration pneumonia Status: Acute Response to Treatment: Stable Problem Text: finished 7 day treatment with zosyn and vancomycin had 2 days of levaquin will restart IV vanco and merrem chest xray continues to show infiltrates PEG tube placed on 06/07/16 (5) Abdominal pain Status: Acute Response to Treatment: Improving Problem Text: surgery following will repeat CT abd with oral contrast spoke with Dr paige earlier today (6) Sepsis Status: Resolved Response to Treatment: Stable Problem Text: aspiration pneumonia (7) Diarrhea Status: Resolved Problem Text: c diff negative. (8) Asthma Status: Chronic Response to Treatment: Stable Problem Text: Nebulizer treatments ordered Pt is not wheezing currently continue to monitor (9) BPH (benign prostatic hyperplasia) Status: Chronic Response to Treatment: Stable Problem Text: continue home medications (10) Parkinson's disease Status: Chronic Problem Text: medications per NG tube (11) DM2 (diabetes mellitus, type 2) Status: Chronic Response to Treatment: Stable Problem Text: diet controlled non insulin dependent will monitor finger sticks insulin as needed (12) Dyslipidemia Status: Chronic Response to Treatment: Stable (13) Down's syndrome Status: Chronic Problem Text: [facility] pt continue with home medications. at baseline can walk to the bathroom with staff, sits in chair and watches tv, makes some noises but otherwise nonverbal. (14) Irritation around percutaneous endoscopic gastrostomy (PEG) tube site Status: Acute Problem Text: * there appears to be stool around the PEG tube site, * CT was negative for fistula, Dr Paige evaluated pt and believes tube likely crossed the transverse colon * he recommended to continue tube feeds and will see pt outpt after discharge for possible replacement Plan / VTE VTE Prophylaxis Ordered?: Yes Subjective Review of Systems CC/HPI The patient is a 61-year-old male admitted with a reason for visit of Aspiration Pneumonia,Sepsis. Events since last encounter pt seen and examined, i was called by nurse to bedside to evaluate pt for lethargy at 1500, pt was arousable but lethagic, abg and chest xray were ordered , he was found to be hypoxic and mildly hypercapnic, he was transferred to ICU to be placed on cpap. repeat gas showed pt 's oxygenation improving but he continued to be lethargic, he was very tender on abd exam Dr pires saw pt and she didn't believe pt's symptoms were related to his respiratory distress, at that point he was taken of of cpap and started on 100% nonrebreather. upon further discussion with his therapeutic case manager who happened to be in the room most of the day stated she noticed pt has been having some tremors that would wake him up lasting a few seconds then he would sleep again. this is new for him per the care givers. spoke with Dr Arizmendi who recommended a loading dose of keppra if we are suspecting seizure activity. Objective Physical Examination General Exam: Positive: Moderate Distress, Negative: Alert (pt is sleeping and arousable to voice, unfortunately most of the exam consisted of him grunting and crying out but not making sense with his communication due to his baseline intellectual deficiency ), Cooperative Eye Exam: Positive: Conjunctiva & lids normal, PERRLA, Negative: Ptosis, Sclera icteric ENT Exam: Positive: Atraumatic, Mucous membr. moist/pink Neck Exam: Positive: Supple Chest Exam: Positive: Clear to auscultation, Normal air movement, Rhonchi (RUL) , Negative: Diminished, Wheezing Heart Exam: Positive: Normal S2, Rate Normal Telemetry: Positive: No significant arrhythmia Abdomen Exam: Positive: Normal bowel sounds, Soft, Tenderness, Negative: Hepatospenomegaly Extremity Exam: Negative: Clubbing, Edema Psych Exam: Positive: Other (intellectual deficiency ) Vital Signs/I&O Vital Signs Date Time Temp Pulse Resp B/P Pulse Ox O2 Delivery O2 Flow Rate FiO2 06/14/16 15:51 35 06/14/16 15:00 98.2 67 16 104/54 97 NIPPV (BIPAP/CPAP) 06/14/16 13:36 4.0 I&O- Last 24 Hours up to 6 AM 06/14/16 06:00 Intake Total 1753 ml Balance 1753 ml Laboratory Data Labs 24H Laboratory Tests 2 06/13/16 18:16: Bedside Glucose (Misc Panel) 176H 06/14/16 00:40: Bedside Glucose (Misc Panel) 163H 06/14/16 06:12: Bedside Glucose (Misc Panel) 168H 06/14/16 06:18: Anion Gap 8, White Blood Count 3.3L, Red Blood Count 3.52L, Hemoglobin 10.5L, Hematocrit 32.2L, Mean Corpuscular Volume 91.6, Mean Corpuscular Hemoglobin 29.9 , Mean Corpuscular Hemoglobin Concent 32.6, Red Cell Distribution Width 14.7H, Platelet Count 185, Neutrophils (%) (Auto) 60.1, Lymphocytes (%) (Auto) 24.2, Monocytes (%) (Auto) 7.0H, Eosinophils (%) (Auto) 4.6H, Basophils (%) (Auto) 0.6 , Neutrophils # (Auto) 2.0, Lymphocytes # (Auto) 0.8L, Monocytes # (Auto) 0.2, Eosinophils # (Auto) 0.2, Basophils # (Auto) 0.0, Blood Urea Nitrogen 33H, Creatinine 1.18, Sodium Level 143, Potassium Level 4.1, Chloride Level 103, Carbon Dioxide Level 32, Calcium Level 8.5L, Glomerular Filtration Rate > 60.0, Large Unclassified Cells # 0.1, Large Unclassified Cells % 3.6 06/14/16 09:35: Bedside Glucose (Misc Panel) 143H 06/14/16 10:06: Arterial Blood pH 7.411, Arterial Blood Partial Pressure CO2 47.7H, Arterial Blood Partial Pressure O2 67.3L, Arterial Blood Total CO2 31.1H, Arterial Blood HCO3 29.6H, Arterial Blood Base Excess 4.3H, Arterial Blood Oxygen Saturation 92.4L, Blood Gas Bicarbonate Standard 28.2H 06/14/16 11:56: Bedside Glucose (Misc Panel) 182H 06/14/16 15:05: Arterial Blood pH 7.416, Arterial Blood Partial Pressure CO2 47.2H, Arterial Blood Partial Pressure O2 100.7H, Arterial Blood Total CO2 31.1H, Arterial Blood HCO3 29.7H, Arterial Blood Base Excess 4.4H, Arterial Blood Oxygen Saturation 97.7, Blood Gas Bicarbonate Standard 28.4H 06/14/16 16:46: Bedside Glucose (Misc Panel) 168H CBC/BMP Laboratory Tests 06/14/16 06:18 Calcium Level 8.5 L, Red Blood Count 3.52 L, Mean Corpuscular Volume 91.6, Mean Corpuscular Hemoglobin 29.9, Mean Corpuscular Hemoglobin Concent 32.6, Red Cell Distribution Width 14.7 H, Neutrophils (%) (Auto) 60.1, Lymphocytes (%) (Auto) 24.2, Monocytes (%) (Auto) 7.0 H, Eosinophils (%) (Auto) 4.6 H, Basophils (%) ( Auto) 0.6, Neutrophils # (Auto) 2.0, Lymphocytes # (Auto) 0.8 L, Monocytes # ( Auto) 0.2, Eosinophils # (Auto) 0.2, Basophils # (Auto) 0.0 FSBS Laboratory Tests Test 06/13/16 18:16 06/14/16 00:40 06/14/16 06:12 06/14/16 09:35 Range/Units Bedside Glucose (Misc Panel) 176 163 168 143 80-115 MG/DL Test 06/14/16 11:56 06/14/16 16:46 Range/Units Bedside Glucose (Misc Panel) 182 168 80-115 MG/DL Microbiology Microbiology 06/04/16 Blood Culture - Final, Complete NO GROWTH AFTER 5 DAYS 06/04/16 Blood Culture - Final, Complete NO GROWTH AFTER 5 DAYS 06/06/16 Gastrointestinal Tract Panel (PCR) - Final, Complete 06/14/16 MRSA Screen, Received Pending 06/06/16 MRSA Screen - Final, Complete 06/04/16 Urine Culture - Final, Complete YOVANNY REAVES DO Jun 14, 2016 18:46
[2016-06-14] MEDS ORDERED: GASTROGRAFIN SOLUTION 30ML PO ONE (19:00)
[2016-06-14] MEDS ORDERED: levETIRAcetam 750 MG in D5W 100 ML IV ONE (19:00)
[2016-06-14] MEDS ORDERED: GASTROGRAFIN SOLUTION 30ML (Q9963) PO ONE (19:30)
--- NOTE | 2016-06-14 20:10 | REPUSA ---
CLINICAL HISTORY: AMS. TECHNIQUE: Multiple axial CT images were obtained through the brain without IV contrast material. COMMENTS: There is normal configuration of sella turcica. There are no intra or extra-axial collections. There is no mass effect or midline shift. There is no evidence of hematoma formation. No hydrocephalus is p resent. The ventricles are symmetrical. No abnormal calcifications are present. There is diffuse age-appropriate cerebellar and cerebral atrophy with proportionally dilated ventricl es and cortical sulci. There are bilateral periventricular and subcortical white matter hypolucencies compatible with mild c hronic microvascular disease. Otherwise, no significant focal abnormalities are seen either in the posterior fossa or supratentoria l compartment. IMPRESSION: 1. Age-appropriate cerebellar and cerebral atrophy. 2. Mild chronic microvascular disease. 3. No evidence of acute intracranial pathology. Thank you for your kind referral of this patient.
[2016-06-14] MEDS: MEROPENEM INJ 1 GM in D5W MINI-BAG PLUS 100 ML IV SCH (20:31)
[2016-06-14] MEDS ORDERED: VANCOMYCIN HCL 500 MG in D5W MINI-BAG PLUS 100 ML IV ONE (21:00)
[2016-06-14] MEDS: ATORVASTATIN 20 MG TAB PO SCH (21:23)
[2016-06-14] MEDS: VANCOMYCIN HCL 1,000 MG, VIAL MATE ADAPTER 1 EACH in D5W 250 ML IV SCH (21:30)
[2016-06-15] VITALS (12 sets, daily range): BP systolic 100–132; BP diastolic 51–63
[2016-06-15] MEDS: MEROPENEM INJ 1 GM in D5W MINI-BAG PLUS 100 ML IV SCH ×3 (01:38→17:39)
[2016-06-15] MEDS: IPRATROPIUM 0.5MG/ALBUTEROL 2.5MG INH SOL UD 3ML (DUONEB)(J7620) NEB SCH ×4 (01:59→20:40)
[2016-06-15] MEDS: SLF 3 ML SYR IV SCH ×3 (05:24→21:19)
[2016-06-15] MEDS: HumaLOG INSULIN (NovoLOG) PER UNIT SC SCH ×3 (05:24→17:39)
[2016-06-15] MEDS: SINEMET 25-100 MG TAB NG SCH ×3 (05:24→18:18)
[2016-06-15 05:26] LABS: BASO % 0.9 % (0.0-1.0); EOS # 0.2 K/mm3 (0.0-0.50); EOS % 4.5 % (0.0-3.0); LARGE UNSTAINED CELL # 0.2 K/mm3 (0.0-0.4); LARGE UNSTAINED CELL % 3.8 % (0.0-4.0); LYMPH # 0.8 K/mm3 (1.5-4.5); LYMPH % 18.6 % (24.0-44.0); MEAN CORPUSCULAR HEMOGLOBIN 29.6 pg (27.0-33.0); MEAN CORPUSCULAR HGB CONC 31.8 g/dl (32.0-36.5); MEAN CORPUSCULAR VOLUME 92.9 fl (80.0-96.0); MONO # 0.4 K/mm3 (0.0-0.8); NEUTROPHILS # 2.9 K/mm3 (1.8-7.7); NEUTROPHILS % 64.2 % (36.0-66.0); PLATELET COUNT, AUTOMATED 190 k/mm3 (150-450); RED CELL DISTRIBUTION WIDTH 14.7 % (11.5-14.5); WHITE BLOOD COUNT 4.5 K/mm3 (4.0-10.0)
[2016-06-15 05:38] LABS: ANION GAP 6 MEQ/L (8-16); BLOOD UREA NITROGEN 24 MG/DL (7-18); CALCIUM LEVEL 8.4 MG/DL (8.8-10.2); CARBON DIOXIDE LEVEL 32 MEQ/L (21-32); CHLORIDE LEVEL 103 MEQ/L (98-107); CREATININE FOR GFR 0.86 MG/DL (0.70-1.30); GLOMERULAR FILTRATION RATE > 60.0 (>49); GLUCOSE, FASTING 127 MG/DL (80-110); SODIUM LEVEL 141 MEQ/L (136-145)
[2016-06-15] MEDS ORDERED: LEVETIRACETAM IV SCH (06:00)
[2016-06-15] MEDS ORDERED: D5W MINI IV SCH (06:00)
--- NOTE | 2016-06-15 06:55 | CCN ---
DATE: 06/14/2016 HISTORY OF PRESENT ILLNESS: I was asked by Dr. Demond Glaser to emergently evaluate Mr. Jones for altered mental status. Mr. Jones is a 61-year-old white male with a past medical history of recurrent aspiration pneumonia, Downs syndrome, dementia, Parkinson's, diabetes type 2, and "asthma" who was admitted on 06/04/2016 secondary to perceived increased dyspnea, diarrhea and fevers at [facility] ([facility]). At [facility], he was found to be hypoxemic with an SpO2 of 80%. He was felt to have sepsis related to a possible pulmonary pneumonia. During this admission, because of his recurrent aspiration, he had a percutaneous endoscopic gastrostomy (PEG) tube placed on 06/07/2016. He had been treated with a seven day course of Zosyn and vancomycin and had been also placed on Levaquin. Furthermore, he had been found to have findings consistent with pulmonary edema and it was thought that he might have had an asthma exacerbation. Apparently, he was close to being discharged back to [facility] when this morning he became more lethargic. At his baseline he can walk to the bathroom and will sit in a chair and although he is nonverbal will watch TV and have some interaction with others. An arterial blood gas showed no evidence of respiratory acidemia. He had been hypoxic with saturations I believe into the 70s or 80s which were supplemented by oxygen. Because of his decreased mental status, he was brought down to the intensive care unit. I was initially asked if there was a role for noninvasive mechanical ventilation, which there is not, as his decreased mental status is not secondary to hypercapnia. When he first arrived in the intensive care unit, he was responsive and interacting with others. He then appeared to quite suddenly again go unresponsive. There was no obvious clinical change. At the time that he went unresponsive, his oxygen saturations were excellent and he was on CPAP at 10 cm of water pressure. When I evaluated him, while he had decreased level of consciousness, he was arousable. He is very difficult to examine his eyes as he does not like that and what I could see is there was no nystagmus or deviation and pupils were equal round reactive to light (PERRL). He also had exquisite abdominal tenderness and on talking to the intensive care unit nurse and his [facility] providers, this was a change even from when he arrived down in the intensive care unit. With his mental status and his disability, no further history is known. ALLERGIES: No known drug allergies. CURRENT MEDICATIONS: - acetaminophen 650 mg by mouth as needed - DuoNeb every 2 hours as needed and every 6 hours standing - Lipitor 40 mg by mouth nightly - Dulcolax 10 mg per rectum (MT) as needed - Sinemet 1 tablet three times a day - Lomotil 1 by mouth twice a day - sliding scale insulin - he had been restarted this morning on meropenem 1 gram every 8 hours - Nystatin powder topically twice a day - Zofran 4 mg IV every 6 hours as needed - Protonix 40 mg IV every 24 hours - potassium chloride 40 mEq by mouth daily - vancomycin 1 gram every 12 hours, also restarted today - Lasix 40 mg down the PEG twice a day PHYSICAL EXAMINATION: VITAL SIGNS: Temperature 98.2, pulse 67, respiratory rate 16, blood pressure 104/54 with a MAP of 71, SpO2 97% and FiO2 of 0.35, with CPAP of 10. HEENT: Very difficult to have him open his eyes. What was briefly seen was PERRL, no nystagmus and no deviation. Nares and oropharynx not examined secondary to full face mask. NECK: Supple, without thyromegaly or masses. Very difficult to assess for jugular venous distention (JVD) with the mask in place and neck configuration. LUNGS: Symmetric excursion, generalized diminished air entry. I could not appreciate any wheeze, rhonchi or crackle. Normal I:E. No accessory muscle use or retractions. CARDIOVASCULAR: Regular rate and rhythm with a normal S1, S2. No murmur, rub or gallop appreciated. ABDOMEN: Positive bowel sounds. Mild distention. Exquisite tenderness. Fecal staining around the new G-tube. I did not press hard enough because of his discomfort to evaluate for hepatosplenomegaly. EXTREMITIES: Warm and well perfused. Without clubbing, cyanosis or significant edema. Palpable pedal pulses bilaterally. LABORATORY DATA: CBC from this morning showed a hemoglobin of 10.5, hematocrit 32.2, platelet count 185,000, and white blood cell count 3,300 with a differential of 60% neutrophils, 24% lymphocytes and 7% monocytes. Chemistry showed a sodium of 143, potassium 4.1, chloride 103, bicarbonate 32, BUN 33, creatinine 1.12, glucose 171, calcium 8.4. Arterial blood gas this morning when he was lethargic was 7.41/48/67 with a measured saturation of 92% and a base excess of 4.3. Repeat arterial blood gas on CPAP of 10 was 7.42/47/101 with a measured saturation of 98% and a base excess of 4.4. I reviewed his chest CT x-ray as well as the report. That x-ray showed an enlarged cardiac silhouette with possibly enlarged pulmonary vascular shadows. Normal appearing mediastinum. There were bilateral interstitial infiltrates. There was also possibly a shadow in the left upper lobe. Per the report and per my view, this was unchanged compared to 06/09/2016. I also reviewed the lung cuts of his most recent abdominal CT scan from 06/11/2016. That showed bibasilar atelectasis/infiltrates. IMPRESSION: 1. Decreased mental status, of unknown etiology. This is not secondary to hypercapnia and is therefore not of respiratory origin. Differential would include seizures, medications, sepsis, or other. 2. Recurrent episodes of aspiration pneumonia. I suspect that a lot of his findings on the CT scan are chronic and not necessarily marketing development representative of a new infection. He still, however, is at risk for aspiration even with a PEG tube in place. 3. Fecal staining around the G-tube. My understanding is it is felt that the G-tube crossed the transverse colon when placed. Surgery is aware of the findings. However, he has had increased abdominal pain and distention based on the observations of his chronic providers. 4. History of asthma per chart. 5. Downs, Parkinson's and dementia. He is not verbal, but does independently walk and does interact with others at his baseline. 6. Stress ulcer therapy in place with a proton pump inhibitor. RECOMMENDATIONS: 1. He does not require noninvasive mechanical ventilation. 2. Oxygenation can be achieved by nasal cannula mask or CPAP, whichever depending upon his needs and his ability to cooperate. Currently he is tolerating the CPAP mask, though per the staff, he would not likely do so when awake. 3. Consider echocardiogram to evaluate cardiac function given x-ray findings. Perhaps, he has had one recently, but I could not find one in my perusal of the chart. 4. Would obtain a lactate as his mental status changes could be secondary to sepsis. 5. Given the change in abdominal findings, would consider chest CT scan and letting surgery know about the change in his examination. 6. Would stop tube feedings at this time given the examination changes. 7. At the present time, there did not appear to be any findings of seizures, but I do not know what happened at the moment he became unresponsive and that has to be in the differential. 8. While he may have been mobile in the past, he is not mobile now and I would add medical deep vein thrombosis (DVT) prophylaxis. CRITICAL CARE TIME: 40 minutes not including procedure time. HEIDI
[2016-06-15] MEDS: VANCOMYCIN HCL 1,000 MG, VIAL MATE ADAPTER 1 EACH in D5W 250 ML IV SCH ×2 (07:41→19:44)
--- NOTE | 2016-06-15 09:42 | REPUSA ---
CLINICAL HISTORY: Abdomen pain and distention. TECHNIQUE: Multiple axial CT images were obtained through the abdomen and pelvis after administratio n of oral contrast material only. COMMENTS: Comparison is made with the prior study dated 06/11/2016. The liver is of uniform attenuation without mass or defect. There is no intra or extrahepatic biliar y ductal dilatation. The spleen is normal. The gallbladder is within normal limits. The pancreas i s of normal contour and attenuation characteristics. There is no evidence of adrenal mass. The kidneys are normal in size, shape and configuration. No renal or ureteral calculi are identified . There is no hydroureter or hydronephrosis. There is no evidence for appendicitis. Gastrostomy tube is in place in the left upper quadrant. The re is no bowel wall thickening. No evidence for small or large bowel obstruction. There is no evide nce of abdominal ascites or lymphadenopathy. There is evidence of diffuse bladder wall thickening co mpatible with cystitis. Small bilateral fat containing inguinal hernias are present. Previously con tain loops of bowel but this has resolved. There is no evidence of intrinsic or extrinsic bladder mass. There is no pelvic ascites or lymphaden opathy. Bibasilar consolidations are noted having pneumonia. Trace bilateral pleural effusions are present. Heart is enlarged. Trace pericardial effusion is present. The bony structures are free of lytic or blastic lesions. Multilevel degenerative changes are seen i nvolving the thoracolumbar spine. Scattered calcifications are seen involving the aorta and major branches compatible with atherosclero sis. IMPRESSION: 1. Bibasilar consolidations are noted compatible with worsening pneumonia. 2. Trace bilateral pleural effusions. Trace pericardial effusion. 3. There is evidence of diffuse bladder wall thickening compatible with cystitis. 4. Small bilateral fat containing inguinal hernias. Thank you for your kind referral of this patient. We appreciate the opportunity to participate in thi s patient's care.
[2016-06-15] MEDS: PANTOPRAZOLE 40MG INJ (PROTONIX) (C9113) IV SCH ×2 (09:43→21:18)
[2016-06-15] MEDS: LOMOTIL 2.5MG/0.025MG TABLET PO SCH ×2 (09:44→21:18)
[2016-06-15] MEDS: POTASSIUM CHLORIDE 10 MEQ SR TABLET PO SCH (09:45)
[2016-06-15] MEDS: NYSTATIN 100,000 UNITS/GM TOPICAL PWD 15 GM TOP SCH ×2 (09:45→21:19)
[2016-06-15] MEDS ORDERED: ALBUTEROL SULFATE 2.5 MG/0.5 ML INH NEB SOLN NEB PRN (10:00)
--- NOTE | 2016-06-15 14:06 | IPNPDOC ---
Assessment/Plan Date Seen The patient was seen on 06/15/16. Problems Problems: (1) Lethargy Status: Resolved Problem Text: * unknown etiology, * pt is slightly hypercapnic, vs infection vs neurological (2) Occasional tremors Status: Acute Problem Text: will give loading dose of keppra consult dr alston CT scan of head will start bid keppra (3) Acute respiratory failure with hypoxemia Status: Acute Problem Text: * due to pulmonary edema , fluid overload and aspiration pneumonia. Also asthma exacerbation. * pt was transferred to ICU for cpap, per pulm pt doesn't' require cpap but he was started on 100%nonrebreather to maintain oxygen above 90 (4) Aspiration pneumonia Status: Acute Response to Treatment: Stable Problem Text: finished 7 day treatment with zosyn and vancomycin had 2 days of levaquin will restart IV vanco and merrem chest xray continues to show infiltrates PEG tube placed on 06/07/16 (5) Abdominal pain Status: Acute Response to Treatment: Improving Problem Text: surgery following will repeat CT abd with oral contrast spoke with Dr paige earlier today (6) Sepsis Status: Resolved Response to Treatment: Stable Problem Text: aspiration pneumonia (7) Diarrhea Status: Resolved Problem Text: c diff negative. (8) Asthma Status: Chronic Response to Treatment: Stable Problem Text: Nebulizer treatments ordered Pt is not wheezing currently continue to monitor (9) BPH (benign prostatic hyperplasia) Status: Chronic Response to Treatment: Stable Problem Text: continue home medications (10) Parkinson's disease Status: Chronic Problem Text: medications per NG tube (11) DM2 (diabetes mellitus, type 2) Status: Chronic Response to Treatment: Stable Problem Text: diet controlled non insulin dependent will monitor finger sticks insulin as needed (12) Dyslipidemia Status: Chronic Response to Treatment: Stable (13) Down's syndrome Status: Chronic Problem Text: [facility] pt continue with home medications. at baseline can walk to the bathroom with staff, sits in chair and watches tv, makes some noises but otherwise nonverbal. (14) Irritation around percutaneous endoscopic gastrostomy (PEG) tube site Status: Acute Problem Text: * there appears to be stool around the PEG tube site, * CT was negative for fistula, Dr Paige evaluated pt and believes tube likely crossed the transverse colon * he recommended to continue tube feeds and will see pt outpt after discharge for possible replacement Plan / VTE VTE Prophylaxis Ordered?: Yes Subjective Review of Systems CC/HPI The patient is a 61-year-old male admitted with a reason for visit of Aspiration Pneumonia,Sepsis. Events since last encounter pt seen and examined, doing well back to baseline mentation Objective Physical Examination General Exam: Positive: Moderate Distress, Negative: Alert (pt is sleeping and arousable to voice, unfortunately most of the exam consisted of him grunting and crying out but not making sense with his communication due to his baseline intellectual deficiency ), Cooperative Eye Exam: Positive: Conjunctiva & lids normal, PERRLA, Negative: Ptosis, Sclera icteric ENT Exam: Positive: Atraumatic, Mucous membr. moist/pink Neck Exam: Positive: Supple Chest Exam: Positive: Clear to auscultation, Normal air movement, Rhonchi (RUL) , Negative: Diminished, Wheezing Heart Exam: Positive: Normal S2, Rate Normal Telemetry: Positive: No significant arrhythmia Abdomen Exam: Positive: Normal bowel sounds, Soft, Tenderness, Negative: Hepatospenomegaly Extremity Exam: Negative: Clubbing, Edema Psych Exam: Positive: Other (intellectual deficiency ) Vital Signs/I&O Vital Signs Date Time Temp Pulse Resp B/P Pulse Ox O2 Delivery O2 Flow Rate FiO2 06/15/16 12:00 98.2 90 20 126/58 94 Nasal Cannula 2.0 06/15/16 11:35 35 I&O- Last 24 Hours up to 6 AM 06/15/16 06:00 Intake Total 1060 ml Output Total 0 ml Balance 1060 ml Laboratory Data Labs 24H Laboratory Tests 2 06/14/16 15:05: Arterial Blood pH 7.416, Arterial Blood Partial Pressure CO2 47.2H, Arterial Blood Partial Pressure O2 100.7H, Arterial Blood Total CO2 31.1H, Arterial Blood HCO3 29.7H, Arterial Blood Base Excess 4.4H, Arterial Blood Oxygen Saturation 97.7, Blood Gas Bicarbonate Standard 28.4H 06/14/16 16:46: Bedside Glucose (Misc Panel) 168H 06/14/16 18:36: Lactic Acid Level 0.8 06/14/16 23:36: Bedside Glucose (Misc Panel) 195H 06/15/16 05:13: Anion Gap 6L, White Blood Count 4.5, Red Blood Count 3.44L, Hemoglobin 10.2L, Hematocrit 32.0L, Mean Corpuscular Volume 92.9, Mean Corpuscular Hemoglobin 29.6 , Mean Corpuscular Hemoglobin Concent 31.8L, Red Cell Distribution Width 14.7H, Platelet Count 190, Neutrophils (%) (Auto) 64.2, Lymphocytes (%) (Auto) 18.6L, Monocytes (%) (Auto) 8.0H, Eosinophils (%) (Auto) 4.5H, Basophils (%) (Auto) 0.9 , Neutrophils # (Auto) 2.9, Lymphocytes # (Auto) 0.8L, Monocytes # (Auto) 0.4, Eosinophils # (Auto) 0.2, Basophils # (Auto) 0.0, Blood Urea Nitrogen 24H, Creatinine 0.86, Sodium Level 141, Potassium Level 4.0, Chloride Level 103, Carbon Dioxide Level 32, Calcium Level 8.4L, Glomerular Filtration Rate > 60.0, Large Unclassified Cells # 0.2, Large Unclassified Cells % 3.8 06/15/16 05:17: Bedside Glucose (Misc Panel) 116H 06/15/16 12:04: Bedside Glucose (Misc Panel) 161H CBC/BMP Laboratory Tests 06/15/16 05:13 Calcium Level 8.4 L, Red Blood Count 3.44 L, Mean Corpuscular Volume 92.9, Mean Corpuscular Hemoglobin 29.6, Mean Corpuscular Hemoglobin Concent 31.8 L, Red Cell Distribution Width 14.7 H, Neutrophils (%) (Auto) 64.2, Lymphocytes (%) ( Auto) 18.6 L, Monocytes (%) (Auto) 8.0 H, Eosinophils (%) (Auto) 4.5 H, Basophils (%) (Auto) 0.9, Neutrophils # (Auto) 2.9, Lymphocytes # (Auto) 0.8 L, Monocytes # (Auto) 0.4, Eosinophils # (Auto) 0.2, Basophils # (Auto) 0.0 FSBS Laboratory Tests Test 06/14/16 16:46 06/14/16 23:36 06/15/16 05:17 06/15/16 12:04 Range/Units Bedside Glucose (Misc Panel) 168 195 116 161 80-115 MG/DL Microbiology Microbiology 06/06/16 Gastrointestinal Tract Panel (PCR) - Final, Complete 06/14/16 MRSA Screen, Received Pending 06/06/16 MRSA Screen - Final, Complete YOVANNY REAVES DO Jun 15, 2016 14:06
[2016-06-15] MEDS: LEVETIRACETAM IV SCH (16:18)
[2016-06-15] MEDS: D5W MINI IV SCH (16:18)
--- NOTE | 2016-06-15 17:20 | ECGEPIP ---
Stationary ECG Study [facility] Test Date: 2016-06-14 Pat Name: BARI SERVIN Department: Room: [place] [address] Gender: M [employer] Professor: CHARITY : [id number] Requested By: YOVANNY REAVES Order Number: [id number] Reading MD: Sami Kaye Measurements Intervals [place] Rate: 61 P: 1 KS: 197 QRS: 100 QRSD: 142 T: -35 QT: 450 QTc: 455 Interpretive Statements MISPLACED LIMB LEADS ON TODAYS TRACING NORMAL SINUS RHYTHM Left bundle branch block PROBABLE Left ventricular hypertrophy IN LIGHT OF MARKED PRECORDIAL VOLTAGE SLOWER HEART RATE COMPARED WITH 06/04/16 Electronically Signed On 06-15-2016 17:20:35 EST by Sami Kaye
[2016-06-15] MEDS: ATORVASTATIN 20 MG TAB PO SCH (21:18)
[2016-06-16] VITALS (8 sets, daily range): BP systolic 95–129; BP diastolic 51–59
[2016-06-16] MEDS: HumaLOG INSULIN (NovoLOG) PER UNIT SC SCH ×4 (00:03→17:35)
[2016-06-16] MEDS: IPRATROPIUM 0.5MG/ALBUTEROL 2.5MG INH SOL UD 3ML (DUONEB)(J7620) NEB SCH ×4 (02:00→19:29)
[2016-06-16] MEDS: MEROPENEM INJ 1 GM in D5W MINI-BAG PLUS 100 ML IV SCH ×3 (02:23→18:32)
[2016-06-16] MEDS: D5W MINI IV SCH ×2 (03:48→15:18)
[2016-06-16] MEDS: LEVETIRACETAM IV SCH ×2 (03:48→15:18)
[2016-06-16 04:50] LABS: BASO # 0.1 K/mm3 (0.0-0.2); EOS # 0.1 K/mm3 (0.0-0.50); EOS % 2.5 % (0.0-3.0); LARGE UNSTAINED CELL # 0.1 K/mm3 (0.0-0.4); LARGE UNSTAINED CELL % 2.5 % (0.0-4.0); LYMPH # 1.1 K/mm3 (1.5-4.5); LYMPH % 18.8 % (24.0-44.0); MEAN CORPUSCULAR HEMOGLOBIN 29.6 pg (27.0-33.0); MEAN CORPUSCULAR HGB CONC 31.9 g/dl (32.0-36.5); MEAN CORPUSCULAR VOLUME 92.6 fl (80.0-96.0); MONO # 0.5 K/mm3 (0.0-0.8); MONO % 8.3 % (0.0-5.0); NEUTROPHILS # 3.9 K/mm3 (1.8-7.7); PLATELET COUNT, AUTOMATED 214 k/mm3 (150-450); RED CELL DISTRIBUTION WIDTH 14.6 % (11.5-14.5); WHITE BLOOD COUNT 5.8 K/mm3 (4.0-10.0)
[2016-06-16 05:03] LABS: ANION GAP 6 MEQ/L (8-16); BLOOD UREA NITROGEN 20 MG/DL (7-18); CALCIUM LEVEL 8.5 MG/DL (8.8-10.2); CARBON DIOXIDE LEVEL 30 MEQ/L (21-32); CHLORIDE LEVEL 104 MEQ/L (98-107); CREATININE FOR GFR 0.95 MG/DL (0.70-1.30); GLOMERULAR FILTRATION RATE > 60.0 (>49); GLUCOSE, FASTING 196 MG/DL (80-110); POTASSIUM SERUM 4.5 MEQ/L (3.5-5.1); SODIUM LEVEL 140 MEQ/L (136-145)
[2016-06-16] MEDS: SINEMET 25-100 MG TAB NG SCH ×3 (05:44→18:32)
[2016-06-16] MEDS: SLF 3 ML SYR IV SCH ×3 (05:44→20:03)
[2016-06-16] MEDS: VANCOMYCIN HCL 1,000 MG, VIAL MATE ADAPTER 1 EACH in D5W 250 ML IV SCH (08:04)
[2016-06-16] MEDS: LOMOTIL 2.5MG/0.025MG TABLET PO SCH ×2 (09:00→20:04)
[2016-06-16] MEDS: PANTOPRAZOLE 40MG INJ (PROTONIX) (C9113) IV SCH ×2 (09:20→20:02)
[2016-06-16] MEDS: NYSTATIN 100,000 UNITS/GM TOPICAL PWD 15 GM TOP SCH ×2 (09:20→20:03)
[2016-06-16] MEDS: POTASSIUM CHLORIDE 10% LIQ 20 MEQ/15 ML UDC PO SCH (09:20)
[2016-06-16] MEDS: ATORVASTATIN 20 MG TAB PO SCH (20:04)
--- NOTE | 2016-06-16 20:07 | PHACANCOPD ---
PHARMACY VANCOMYCIN DOSING Pt Demographics Demographics Patient Age:61 , Weight:58.100 , Gender: male Adjusted Body Weight Events Past 24 Hours Events Past 24 Hours: NO: Change in CrCl, Dialysis, Diuretic Therapy, Elevation in WBC, Fever, Other, Pending Diagnostics, Pending Procedures Vancomycin Vancomycin indication: pneumonia Vancomycin Target Ranges: 10-20 mcg/ml Vancomycin Load Y/N: No Load Dose Date Time Vancomycin Load Dose: Date: Time: Vancomycin Dose Date: 06/16/16. CHANGE Current Vancomycin Dose 1g IV q12h @20:00 TO VANCO 1GM IV Q18 STARTING AT 01:00 06/17/16 Intermittent Dosing?: No Labs Labs Laboratory Tests Test 06/16/16 19:04 Vancomycin Level Trough 21.6UG/ML (10.0-20.0) Laboratory Tests 06/16/16 04:38 Calcium Level 8.5, Red Blood Count 3.70, Mean Corpuscular Volume 92.6, Mean Corpuscular Hemoglobin 29.6, Mean Corpuscular Hemoglobin Concent 31.9, Red Cell Distribution Width 14.6, Neutrophils (%) (Auto) 67.0, Lymphocytes (%) (Auto) 18.8, Monocytes (%) (Auto) 8.3, Eosinophils (%) (Auto) 2.5, Basophils (%) (Auto ) 1.0, Neutrophils # (Auto) 3.9, Lymphocytes # (Auto) 1.1, Monocytes # (Auto) 0.5, Eosinophils # (Auto) 0.1, Basophils # (Auto) 0.1 Micro Microbiology 06/16/16 MRSA Screen, Received Pending 06/14/16 MRSA Screen - NEG Creatinine Clearance Date:. Creatinine Clearance: [>60 ml/min]. Assessment and Plan Maintaining Current Dose?: No Reason for dose change: Trough too high Pharmacist Note Pharmacist Note Date: 06/16/16. Pharmacist note: HE is being treated for aspiration pneumonia/ sepsis and has been RE-started on Vanco WITH THE ADDITION OF MEROPENEM OF 09/25. He was on Zosyn and Vanco earlier LAST month for the same indication. He is currently on Vanco 1g IV q12h & MEROPENEM 1GM IV Q8H (18:00). Cultures SO FAR are negative. A VANCO TR TODAY = 21.6 mcg/ml HIS VANCO WAS CHANGED TO 1GM IV Q18H STARTING AT 01:00 06/17/16 A VANCO TR WILL BE DRAWN WHEN HE ARRIVES [place] JASPER, Pharm.D. [facility] Jun 16, 2016 20:07
[2016-06-17] MEDS: IPRATROPIUM 0.5MG/ALBUTEROL 2.5MG INH SOL UD 3ML (DUONEB)(J7620) NEB SCH ×4 (00:26→19:22)
[2016-06-17] MEDS: VANCOMYCIN HCL 1,000 MG, VIAL MATE ADAPTER 1 EACH in D5W 250 ML IV SCH ×2 (00:32→18:22)
[2016-06-17] MEDS: ACETAMINOPHEN TAB 650MG DOSE (2X325MG) PO PRN ×3 (01:39→18:13)
[2016-06-17] MEDS: MEROPENEM INJ 1 GM in D5W MINI-BAG PLUS 100 ML IV SCH ×3 (02:10→17:37)
[2016-06-17] MEDS: D5W MINI IV SCH ×2 (04:00→16:39)
[2016-06-17] MEDS: LEVETIRACETAM IV SCH ×2 (04:00→16:39)
[2016-06-17] MEDS: SINEMET 25-100 MG TAB NG SCH ×3 (05:40→18:13)
[2016-06-17] MEDS: HumaLOG INSULIN (NovoLOG) PER UNIT SC SCH ×4 (05:40→17:37)
[2016-06-17] MEDS: SLF 3 ML SYR IV SCH ×3 (05:41→20:08)
[2016-06-17 06:00] VITALS: BP 122/58
[2016-06-17 06:35] LABS: BASO # 0.1 K/mm3 (0.0-0.2); BASO % 2.1 % (0.0-1.0); EOS # 0.1 K/mm3 (0.0-0.50); LARGE UNSTAINED CELL # 0.2 K/mm3 (0.0-0.4); LYMPH # 1.5 K/mm3 (1.5-4.5); LYMPH % 21.4 % (24.0-44.0); MEAN CORPUSCULAR HGB CONC 32.8 g/dl (32.0-36.5); MEAN CORPUSCULAR VOLUME 91.4 fl (80.0-96.0); MONO # 0.6 K/mm3 (0.0-0.8); MONO % 10.1 % (0.0-5.0); NEUTROPHILS # 3.7 K/mm3 (1.8-7.7); NEUTROPHILS % 61.4 % (36.0-66.0); PLATELET COUNT, AUTOMATED 197 k/mm3 (150-450); RED CELL DISTRIBUTION WIDTH 15.8 % (11.5-14.5); WHITE BLOOD COUNT 6.1 K/mm3 (4.0-10.0)
[2016-06-17 06:48] LABS: ANION GAP 8 MEQ/L (8-16); BLOOD UREA NITROGEN 20 MG/DL (7-18); CALCIUM LEVEL 8.6 MG/DL (8.8-10.2); CARBON DIOXIDE LEVEL 30 MEQ/L (21-32); CHLORIDE LEVEL 102 MEQ/L (98-107); CREATININE FOR GFR 0.82 MG/DL (0.70-1.30); GLOMERULAR FILTRATION RATE > 60.0 (>49); GLUCOSE, FASTING 142 MG/DL (80-110); POTASSIUM SERUM 4.2 MEQ/L (3.5-5.1); SODIUM LEVEL 140 MEQ/L (136-145)
[2016-06-17] MEDS: POTASSIUM CHLORIDE 10% LIQ 20 MEQ/15 ML UDC PO SCH (09:27)
[2016-06-17] MEDS: LOMOTIL 2.5MG/0.025MG TABLET PO SCH ×2 (09:27→20:07)
[2016-06-17] MEDS: PANTOPRAZOLE 40MG INJ (PROTONIX) (C9113) IV SCH ×2 (09:27→20:07)
[2016-06-17] MEDS: NYSTATIN 100,000 UNITS/GM TOPICAL PWD 15 GM TOP SCH ×2 (09:28→20:07)
--- NOTE | 2016-06-17 13:21 | IPNPDOC ---
Assessment/Plan Date Seen The patient was seen on 06/17/16. Problems Problems: (1) Aspiration pneumonia Status: Acute Response to Treatment: Stable Problem Text: finished 7 day treatment with zosyn and vancomycin had 2 days of levaquin continue currently IV antibiotics chest xray continues to show infiltrates PEG tube placed on 06/07/16 (2) Occasional tremors Status: Acute Problem Text: continue Keppra 500mg BID EEG pending neurology following appreciate input (3) Lethargy Status: Resolved Problem Text: * unknown etiology, * pt is slightly hypercapnic, vs infection vs neurological (4) Acute respiratory failure with hypoxemia Status: Resolved Problem Text: * due to pulmonary edema , fluid overload and aspiration pneumonia. Also asthma exacerbation. * currently on nasal canula (5) Abdominal pain Status: Acute Response to Treatment: Improving Problem Text: surgery following continue tube feeds (6) Sepsis Status: Resolved Response to Treatment: Stable Problem Text: aspiration pneumonia (7) Diarrhea Status: Resolved Problem Text: c diff negative. (8) Asthma Status: Chronic Response to Treatment: Stable Problem Text: * Nebulizer treatments * Pt is not wheezing currently * continue to monitor (9) BPH (benign prostatic hyperplasia) Status: Chronic Response to Treatment: Stable Problem Text: continue home medications (10) Parkinson's disease Status: Chronic Problem Text: medications per NG tube (11) DM2 (diabetes mellitus, type 2) Status: Chronic Response to Treatment: Stable Problem Text: diet controlled non insulin dependent will monitor finger sticks insulin as needed (12) Dyslipidemia Status: Chronic Response to Treatment: Stable (13) Down's syndrome Status: Chronic Problem Text: * [facility] pt continue with home medications. * at baseline can walk to the bathroom with staff, sits in chair and watches tv , makes some noises but otherwise nonverbal. (14) Irritation around percutaneous endoscopic gastrostomy (PEG) tube site Status: Acute Problem Text: * there appears to be stool around the PEG tube site, * CT was negative for fistula, Dr Paige evaluated pt and believes tube likely crossed the transverse colon * he recommended to continue tube feeds and will see pt outpt after discharge for possible replacement Plan / VTE VTE Prophylaxis Ordered?: Yes Subjective Review of Systems CC/HPI The patient is a 61-year-old male admitted with a reason for visit of Aspiration Pneumonia,Sepsis. Events since last encounter pt seen and examined, doing well, was sleeping, no events per nursing Objective Physical Examination General Exam: Positive: Moderate Distress, Negative: Alert (pt is sleeping and arousable to voice, unfortunately most of the exam consisted of him grunting and crying out but not making sense with his communication due to his baseline intellectual deficiency ), Cooperative Eye Exam: Positive: Conjunctiva & lids normal, PERRLA, Negative: Ptosis, Sclera icteric ENT Exam: Positive: Atraumatic, Mucous membr. moist/pink Neck Exam: Positive: Supple Chest Exam: Positive: Clear to auscultation, Normal air movement, Rhonchi (RUL) , Negative: Diminished, Wheezing Heart Exam: Positive: Normal S2, Rate Normal Telemetry: Positive: No significant arrhythmia Abdomen Exam: Positive: Normal bowel sounds, Soft, Tenderness, Negative: Hepatospenomegaly Extremity Exam: Negative: Clubbing, Edema Psych Exam: Positive: Other (intellectual deficiency ) Vital Signs/I&O Vital Signs Date Time Temp Pulse Resp B/P Pulse Ox O2 Delivery O2 Flow Rate FiO2 06/17/16 11:10 Nasal Cannula 2.0 06/17/16 06:00 97.7 72 18 122/58 94 06/16/16 07:25 35 I&O- Last 24 Hours up to 6 AM 06/17/16 06:00 Intake Total 650 ml Output Total 0 ml Balance 650 ml Laboratory Data Labs 24H Laboratory Tests 2 06/16/16 17:31: Bedside Glucose (Misc Panel) 189H 06/16/16 19:04: Vancomycin Level Trough 21.6H 06/17/16 00:02: Bedside Glucose (Misc Panel) 136H 06/17/16 05:22: Bedside Glucose (Misc Panel) 158H 06/17/16 05:38: Anion Gap 8, White Blood Count 6.1, Red Blood Count 3.65L, Hemoglobin 10.9L, Hematocrit 33.4L, Mean Corpuscular Volume 91.4, Mean Corpuscular Hemoglobin 30.0 , Mean Corpuscular Hemoglobin Concent 32.8, Red Cell Distribution Width 15.8H, Platelet Count 197, Neutrophils (%) (Auto) 61.4, Lymphocytes (%) (Auto) 21.4L, Monocytes (%) (Auto) 10.1H, Eosinophils (%) (Auto) 2.0, Basophils (%) (Auto) 2.1H, Neutrophils # (Auto) 3.7, Lymphocytes # (Auto) 1.5, Monocytes # (Auto) 0.6 , Eosinophils # (Auto) 0.1, Basophils # (Auto) 0.1, Blood Urea Nitrogen 20H, Creatinine 0.82, Sodium Level 140, Potassium Level 4.2, Chloride Level 102, Carbon Dioxide Level 30, Calcium Level 8.6L, Glomerular Filtration Rate > 60.0, Large Unclassified Cells # 0.2, Large Unclassified Cells % 3.0 06/17/16 11:36: Bedside Glucose (Misc Panel) 166H CBC/BMP Laboratory Tests 06/17/16 05:38 Calcium Level 8.6 L, Red Blood Count 3.65 L, Mean Corpuscular Volume 91.4, Mean Corpuscular Hemoglobin 30.0, Mean Corpuscular Hemoglobin Concent 32.8, Red Cell Distribution Width 15.8 H, Neutrophils (%) (Auto) 61.4, Lymphocytes (%) (Auto) 21.4 L, Monocytes (%) (Auto) 10.1 H, Eosinophils (%) (Auto) 2.0, Basophils (%) ( Auto) 2.1 H, Neutrophils # (Auto) 3.7, Lymphocytes # (Auto) 1.5, Monocytes # ( Auto) 0.6, Eosinophils # (Auto) 0.1, Basophils # (Auto) 0.1 FSBS Laboratory Tests Test 06/16/16 17:31 06/17/16 00:02 06/17/16 05:22 06/17/16 11:36 Range/Units Bedside Glucose (Misc Panel) 189 136 158 166 80-115 MG/DL Microbiology Microbiology 06/16/16 MRSA Screen, Received Pending 06/14/16 MRSA Screen - Final, Complete YOVANNY REAVES DO Jun 17, 2016 13:21
[2016-06-17 14:00] VITALS: BP 104/52
[2016-06-17] MEDS: ATORVASTATIN 20 MG TAB PO SCH (20:07)
[2016-06-17 22:00] VITALS: BP 118/54
[2016-06-18] MEDS: ACETAMINOPHEN TAB 650MG DOSE (2X325MG) PO PRN ×3 (00:06→16:44)
[2016-06-18] MEDS: HumaLOG INSULIN (NovoLOG) PER UNIT SC SCH ×4 (00:06→18:32)
[2016-06-18] MEDS: MEROPENEM INJ 1 GM in D5W MINI-BAG PLUS 100 ML IV SCH ×3 (01:43→18:31)
[2016-06-18] MEDS: IPRATROPIUM 0.5MG/ALBUTEROL 2.5MG INH SOL UD 3ML (DUONEB)(J7620) NEB SCH ×4 (02:00→19:45)
[2016-06-18] MEDS: LEVETIRACETAM IV SCH ×2 (03:10→16:44)
[2016-06-18] MEDS: D5W MINI IV SCH ×2 (03:10→16:44)
[2016-06-18] MEDS: SINEMET 25-100 MG TAB NG SCH ×3 (05:56→18:32)
[2016-06-18] MEDS: SLF 3 ML SYR IV SCH ×3 (05:58→22:00)
[2016-06-18 06:00] VITALS: BP 125/56
[2016-06-18 06:22] LABS: BASO # 0.1 K/mm3 (0.0-0.2); BASO % 1.7 % (0.0-1.0); EOS # 0.1 K/mm3 (0.0-0.50); EOS % 2.3 % (0.0-3.0); LARGE UNSTAINED CELL # 0.2 K/mm3 (0.0-0.4); LARGE UNSTAINED CELL % 3.7 % (0.0-4.0); LYMPH # 1.9 K/mm3 (1.5-4.5); LYMPH % 29.5 % (24.0-44.0); MEAN CORPUSCULAR HEMOGLOBIN 29.6 pg (27.0-33.0); MEAN CORPUSCULAR HGB CONC 32.4 g/dl (32.0-36.5); MEAN CORPUSCULAR VOLUME 91.3 fl (80.0-96.0); MONO # 0.5 K/mm3 (0.0-0.8); MONO % 8.3 % (0.0-5.0); NEUTROPHILS # 3.1 K/mm3 (1.8-7.7); NEUTROPHILS % 54.5 % (36.0-66.0); PLATELET COUNT, AUTOMATED 206 k/mm3 (150-450); RED CELL DISTRIBUTION WIDTH 15.6 % (11.5-14.5); WHITE BLOOD COUNT 5.7 K/mm3 (4.0-10.0)
[2016-06-18 06:34] LABS: ANION GAP 6 MEQ/L (8-16); BLOOD UREA NITROGEN 21 MG/DL (7-18); CALCIUM LEVEL 8.8 MG/DL (8.8-10.2); CARBON DIOXIDE LEVEL 30 MEQ/L (21-32); CHLORIDE LEVEL 102 MEQ/L (98-107); CREATININE FOR GFR 0.92 MG/DL (0.70-1.30); GLOMERULAR FILTRATION RATE > 60.0 (>49); GLUCOSE, FASTING 159 MG/DL (80-110); POTASSIUM SERUM 4.5 MEQ/L (3.5-5.1); SODIUM LEVEL 138 MEQ/L (136-145)
--- NOTE | 2016-06-18 07:12 | CR ---
DATE OF CONSULTATION: 06/16/2016 REFERRING PHYSICIAN: Dr. Glaser HISTORY: The patient is a 61-year-old male who was admitted to the hospital on 06/04/2016 secondary to respiratory insufficiency. He was found to have pneumonia for which he was being treated during his stay here. On 06/15/2016, it was noted that his mental status was altered. He was very lethargic and not acting appropriately. Due to this reason he was brought to the intensive care unit (ICU) where the ICU attending thought that his symptoms were secondary to possible seizure activity. Because of this, he was started on Keppra and since then his symptoms have improved significantly. He is now back to baseline. He does not talk too much, but he does comprehend. It is very difficult to obtain any other history from him since he has speaks only a minimal amount. His medications include IV antibiotics including vancomycin and Merrem and also Levaquin. He had a CT scan of the brain performed which did not show any acute changes. Currently, he is active and does respond appropriately. PAST MEDICAL HISTORY: 1. Down syndrome. 2. Diabetes. 3. Asthma. 4. Benign prostatic hyperplasia. 5. Parkinson's disease. 6. Dyslipidemia. 7. Abdominal wall hernia repair. FAMILY HISTORY: The patient's family history could not be obtained. PERSONAL AND SOCIAL HISTORY: Patient who is currently a resident at [facility]. There is no past medical history of smoking or alcohol and drug abuse. All other systems were reviewed and found to be noncontributory. PHYSICAL EXAMINATION: On examination, the patient does not appear in any discomfort. He is fairly pleasant to interact with. His posture is normal. His blood pressure is 130/60. Pulse is 90 per minute. Respirations are 20 per minute. His temperature is 98.4 degrees Fahrenheit. He is 5 feet 3 inches tall. He weighs about 57 kg. His neck is supple. There is no carotid bruit audible. There is no tenderness in his cervical spine or shoulder muscles. His ear, nose and throat examination is normal. Lungs are clear to auscultation. His heart is regular in rhythm. His abdomen is soft and nondistended. There is no ankle edema seen. The peripheral pulses are normally palpable. He is awake, but does not know the day, date or year. He responds minimally to verbal stimuli. He does move his eyes both horizontally and vertically. His pupils are about 3 mm in size and reactive to light. His face is symmetrical. It is difficult to assess his motor function, but he seems to be moving all his extremities fairly well. I do not see any resting tremors of the hands at the present moment. His muscle tone appears to be within normal limits. His sensory examination could not be performed well. Deep tendon reflexes are 2+ and symmetrical with an upgoing toe on the left side. His gait is not tested. DIAGNOSTIC STUDIES: The patient's CT scan of the brain which was performed on 06/14/2016 was reviewed. The study did show cerebral and cerebellar atrophy associated with chronic microvascular disease. His CBC shows a normal white cell count of 4500, hemoglobin 10.2, hematocrit 32 and platelets 190,000. His sodium is 141, potassium 4, BUN 24 and creatinine 0.86. ASSESSMENT: 1. Altered mental status. 2. ? metabolic encephalopathy. 3. Parkinson's disease. 4. Mental retardation 5. Down syndrome PLAN: 1. Keppra 750 mg by mouth twice a day. 2. EEG study. 3. Sinemet 25/100 one by mouth three times a day. 4. Paxil 20 mg by mouth daily. 5. Continue with supportive care. Thank you very much for this consultation. ARSENIOD
[2016-06-18] MEDS: POTASSIUM CHLORIDE 10% LIQ 20 MEQ/15 ML UDC PO SCH (09:25)
[2016-06-18] MEDS: LOMOTIL 2.5MG/0.025MG TABLET PO SCH ×2 (09:26→21:59)
[2016-06-18] MEDS: NYSTATIN 100,000 UNITS/GM TOPICAL PWD 15 GM TOP SCH ×2 (09:26→21:59)
[2016-06-18] MEDS: PANTOPRAZOLE 40MG INJ (PROTONIX) (C9113) IV SCH ×2 (09:26→21:59)
[2016-06-18] MEDS: VANCOMYCIN HCL 1,000 MG, VIAL MATE ADAPTER 1 EACH in D5W 250 ML IV SCH (12:36)
--- NOTE | 2016-06-18 13:09 | IPNPDOC ---
Assessment/Plan Date Seen The patient was seen on 06/18/16. Problems Problems: (1) Aspiration pneumonia Status: Acute Response to Treatment: Stable Problem Text: finished 7 day treatment with zosyn and vancomycin had 2 days of levaquin continue currently IV antibiotics that was restarted 3 days ago after his chest xray showed worsening pneumonia chest xray continues to show infiltrates PEG tube placed on 06/07/16 (2) Occasional tremors Status: Acute Problem Text: continue Keppra BID EEG pending neurology following appreciate input (3) Lethargy Status: Resolved Problem Text: * unknown etiology, * pt was slightly hypercapnic, vs infection vs neurological (4) Acute respiratory failure with hypoxemia Status: Resolved Problem Text: * due to pulmonary edema , fluid overload and aspiration pneumonia. Also asthma exacerbation. * currently on nasal canula (5) Abdominal pain Status: Acute Response to Treatment: Improving Problem Text: surgery following continue tube feeds (6) Sepsis Status: Resolved Response to Treatment: Stable Problem Text: aspiration pneumonia (7) Diarrhea Status: Resolved Problem Text: c diff negative. (8) Asthma Status: Chronic Response to Treatment: Stable Problem Text: * Nebulizer treatments * Pt is not wheezing currently * continue to monitor (9) BPH (benign prostatic hyperplasia) Status: Chronic Response to Treatment: Stable Problem Text: continue home medications (10) Parkinson's disease Status: Chronic Problem Text: medications per NG tube (11) DM2 (diabetes mellitus, type 2) Status: Chronic Response to Treatment: Stable Problem Text: diet controlled non insulin dependent will monitor finger sticks insulin as needed (12) Dyslipidemia Status: Chronic Response to Treatment: Stable (13) Down's syndrome Status: Chronic Problem Text: * [facility] pt continue with home medications. * at baseline can walk to the bathroom with staff, sits in chair and watches tv , makes some noises but otherwise nonverbal. (14) Irritation around percutaneous endoscopic gastrostomy (PEG) tube site Status: Acute Problem Text: * there appears to be stool around the PEG tube site, * CT was negative for fistula, Dr Paige evaluated pt * continue current tube feeds Plan / VTE VTE Prophylaxis Ordered?: Yes Subjective Review of Systems CC/HPI The patient is a 61-year-old male admitted with a reason for visit of Aspiration Pneumonia,Sepsis. Events since last encounter pt seen and examined, doing well but has been sleepy during the day and awake at night, no overnight events per nursing Objective Physical Examination General Exam: Positive: Moderate Distress, Negative: Alert (pt is sleeping and arousable to voice, unfortunately most of the exam consisted of him grunting and crying out but not making sense with his communication due to his baseline intellectual deficiency ), Cooperative Eye Exam: Positive: Conjunctiva & lids normal, PERRLA, Negative: Ptosis, Sclera icteric ENT Exam: Positive: Atraumatic, Mucous membr. moist/pink Neck Exam: Positive: Supple Chest Exam: Positive: Clear to auscultation, Normal air movement, Rhonchi (RUL) , Negative: Diminished, Wheezing Heart Exam: Positive: Normal S2, Rate Normal Telemetry: Positive: No significant arrhythmia Abdomen Exam: Positive: Normal bowel sounds, Soft, Tenderness, Negative: Hepatospenomegaly Extremity Exam: Negative: Clubbing, Edema Psych Exam: Positive: Other (intellectual deficiency ) Vital Signs/I&O Vital Signs Date Time Temp Pulse Resp B/P Pulse Ox O2 Delivery O2 Flow Rate FiO2 06/18/16 07:24 Nasal Cannula 2.0 06/18/16 06:00 97.0 77 18 125/56 92 06/16/16 07:25 35 I&O- Last 24 Hours up to 6 AM 06/18/16 06:00 Intake Total 1570 ml Output Total 0 ml Balance 1570 ml Laboratory Data Labs 24H Laboratory Tests 2 06/17/16 17:30: Bedside Glucose (Misc Panel) 189H 06/17/16 23:53: Bedside Glucose (Misc Panel) 137H 06/18/16 05:49: Bedside Glucose (Misc Panel) 157H 06/18/16 05:53: Anion Gap 6L, White Blood Count 5.7, Red Blood Count 3.96L, Hemoglobin 11.7L, Hematocrit 36.2L, Mean Corpuscular Volume 91.3, Mean Corpuscular Hemoglobin 29.6 , Mean Corpuscular Hemoglobin Concent 32.4, Red Cell Distribution Width 15.6H, Platelet Count 206, Neutrophils (%) (Auto) 54.5, Lymphocytes (%) (Auto) 29.5, Monocytes (%) (Auto) 8.3H, Eosinophils (%) (Auto) 2.3, Basophils (%) (Auto) 1.7H , Neutrophils # (Auto) 3.1, Lymphocytes # (Auto) 1.9, Monocytes # (Auto) 0.5, Eosinophils # (Auto) 0.1, Basophils # (Auto) 0.1, Blood Urea Nitrogen 21H, Creatinine 0.92, Sodium Level 138, Potassium Level 4.5, Chloride Level 102, Carbon Dioxide Level 30, Calcium Level 8.8, Glomerular Filtration Rate > 60.0, Large Unclassified Cells # 0.2, Large Unclassified Cells % 3.7 06/18/16 11:59: Bedside Glucose (Misc Panel) 161H CBC/BMP Laboratory Tests 06/18/16 05:53 Calcium Level 8.8, Red Blood Count 3.96 L, Mean Corpuscular Volume 91.3, Mean Corpuscular Hemoglobin 29.6, Mean Corpuscular Hemoglobin Concent 32.4, Red Cell Distribution Width 15.6 H, Neutrophils (%) (Auto) 54.5, Lymphocytes (%) (Auto) 29.5, Monocytes (%) (Auto) 8.3 H, Eosinophils (%) (Auto) 2.3, Basophils (%) ( Auto) 1.7 H, Neutrophils # (Auto) 3.1, Lymphocytes # (Auto) 1.9, Monocytes # ( Auto) 0.5, Eosinophils # (Auto) 0.1, Basophils # (Auto) 0.1 FSBS Laboratory Tests Test 06/17/16 17:30 06/17/16 23:53 06/18/16 05:49 06/18/16 11:59 Range/Units Bedside Glucose (Misc Panel) 189 137 157 161 80-115 MG/DL Microbiology Microbiology 06/16/16 MRSA Screen - Final, Complete 06/14/16 MRSA Screen - Final, Complete YOVANNY REAVES DO Jun 18, 2016 13:09
[2016-06-18 14:00] VITALS: BP 113/59
[2016-06-18] MEDS: OLANZapine 5 MG TAB PEG SCH (21:59)
[2016-06-18] MEDS: ATORVASTATIN 20 MG TAB PO SCH (21:59)
[2016-06-18 22:00] VITALS: BP 127/70
[2016-06-19] MEDS: IPRATROPIUM 0.5MG/ALBUTEROL 2.5MG INH SOL UD 3ML (DUONEB)(J7620) NEB SCH ×4 (01:43→19:35)
[2016-06-19] MEDS: MEROPENEM INJ 1 GM in D5W MINI-BAG PLUS 100 ML IV SCH ×3 (03:21→17:38)
[2016-06-19] MEDS: LEVETIRACETAM IV SCH ×2 (04:13→16:41)
[2016-06-19] MEDS: D5W MINI IV SCH ×2 (04:13→16:41)
[2016-06-19 06:00] VITALS: BP 116/55
[2016-06-19] MEDS: HumaLOG INSULIN (NovoLOG) PER UNIT SC SCH ×4 (06:00→17:37)
[2016-06-19] MEDS: SINEMET 25-100 MG TAB NG SCH ×3 (06:14→18:47)
[2016-06-19] MEDS: SLF 3 ML SYR IV SCH ×3 (06:15→22:21)
[2016-06-19 06:46] LABS: BASO # 0.1 K/mm3 (0.0-0.2); BASO % 1.1 % (0.0-1.0); EOS # 0.1 K/mm3 (0.0-0.50); LARGE UNSTAINED CELL # 0.2 K/mm3 (0.0-0.4); LARGE UNSTAINED CELL % 3.2 % (0.0-4.0); LYMPH # 1.5 K/mm3 (1.5-4.5); LYMPH % 23.8 % (24.0-44.0); MEAN CORPUSCULAR HEMOGLOBIN 29.6 pg (27.0-33.0); MEAN CORPUSCULAR VOLUME 89.6 fl (80.0-96.0); MONO # 0.4 K/mm3 (0.0-0.8); MONO % 6.8 % (0.0-5.0); NEUTROPHILS # 4.1 K/mm3 (1.8-7.7); PLATELET COUNT, AUTOMATED 210 k/mm3 (150-450); WHITE BLOOD COUNT 6.4 K/mm3 (4.0-10.0)
[2016-06-19] MEDS: VANCOMYCIN HCL 1,000 MG, VIAL MATE ADAPTER 1 EACH in D5W 250 ML IV SCH (06:51)
[2016-06-19 07:17] LABS: ANION GAP 9 MEQ/L (8-16); BLOOD UREA NITROGEN 21 MG/DL (7-18); CALCIUM LEVEL 8.5 MG/DL (8.8-10.2); CARBON DIOXIDE LEVEL 28 MEQ/L (21-32); CHLORIDE LEVEL 100 MEQ/L (98-107); GLOMERULAR FILTRATION RATE > 60.0 (>49); GLUCOSE, FASTING 148 MG/DL (80-110); POTASSIUM SERUM 4.5 MEQ/L (3.5-5.1); SODIUM LEVEL 137 MEQ/L (136-145)
[2016-06-19] MEDS: PARoxetine 20 MG TAB PEG SCH (10:07)
[2016-06-19] MEDS: LOMOTIL 2.5MG/0.025MG TABLET PO SCH ×2 (10:07→22:20)
[2016-06-19] MEDS: PANTOPRAZOLE 40MG INJ (PROTONIX) (C9113) IV SCH ×2 (10:08→22:19)
[2016-06-19] MEDS: POTASSIUM CHLORIDE 10% LIQ 20 MEQ/15 ML UDC PO SCH (10:08)
[2016-06-19] MEDS: NYSTATIN 100,000 UNITS/GM TOPICAL PWD 15 GM TOP SCH ×2 (10:09→22:20)
[2016-06-19 14:00] VITALS: BP 102/51
--- NOTE | 2016-06-19 14:23 | IPN ---
DATE: 06/19/2016 REASON FOR VISIT: Continued monitoring of PEG tube placement. Resident is seen today for a followup of his PEG tube. Resident is lying in his bed and is nonverbal. Resident is somewhat sleepy. There is a [facility] aid with him, but she is unable to answer any questions as she has never taken care of this patient before today. He has been in the hospital. During his hospital stay he has been treated for pneumonia as well as his aspiration risk. Resident's tube feeds have been going well in the PEG tube and has had a 50 mL residual most of the time. Latest residual was 80 mL this morning at 1:00 a.m. Has been tolerating the feeding well. Aspiration risk precautions have been maintained. The patient is being fed with Glucerna 1.2. PHYSICAL EXAMINATION: VITALS: Temperature 95.6, pulse rate 70, respiratory rate 16, blood pressure 116/55, pulse oximetry 96% on 2 liters. APPEARANCE: Resident is lying in bed and is mostly sleeping. Resident is not able to communicate. Resident is in no acute distress. HEART: Normal S1 and S2 with no murmurs. LUNGS: Equal bilaterally. ABDOMEN: Soft and nontender. Bowel sounds heard to auscultation. Bowel sounds are hyperactive. PEG tube site shows no sign of infection. Some mild erythema but not drainage or stool leakage around PEG tube site. Appears to be stable. EXTREMITIES: No peripheral edema. Radial pulse 2/4 bilaterally. LABORATORIES: White blood cell count this morning was 6.4, hemoglobin 11., hematocrit 36.0, platelet count 210. ASSESSMENT: Resident will continue with PEG tube placement at this time due to his risk of aspiration. Will also continue with aspiration risk precautions. No need to change treatment plan at this time. Monitor PEG tube for any changes any stool leakage around PEG tube site. Monitor the patient as needed. Discussed plan with Dr. Tirso Paige. My preceptor for this patient encounter was Dr. Tirso Paige. The preceptor was physically present in the building during the encounter and was fully available. As needed, all aspects of the patient interview, examination, medical decision making process, and medical care plan development were reviewed and approved by the preceptor. The preceptor is aware and concurs with the plan as stated in the body of this note and will attest to such by his/her cosignature. Attending note: Pt was seen and examined with the resident and I agree with the above note. HEIDI
--- NOTE | 2016-06-19 20:23 | IPNPDOC ---
Assessment/Plan Date Seen The patient was seen on 06/19/16. Problems Problems: (1) Aspiration pneumonia Status: Acute Response to Treatment: Stable Problem Text: * finished 7 day treatment with zosyn and vancomycin and 2 days of levaquin * continue currently IV antibiotics that was restarted on 06/14/15 after his chest xray showed worsening pneumonia * currently on oxygen 2L per [place] which he normally uses at night * PEG tube placed on 06/07/16 (2) Irritation around percutaneous endoscopic gastrostomy (PEG) tube site Status: Acute Problem Text: * there appears to be stool around the PEG tube site, or hematoma that may be draining * CT was negative for fistula, Dr Paige evaluated pt * continue current tube feeds (3) Occasional tremors Status: Acute Problem Text: continue Keppra BID EEG pending neurology following appreciate input (4) Lethargy Status: Resolved Problem Text: * pt was slightly hypercapnic, vs infection vs neurological (5) Acute respiratory failure with hypoxemia Status: Resolved Problem Text: * due to pulmonary edema , fluid overload and aspiration pneumonia. Also asthma exacerbation. * currently on nasal canula (6) Abdominal pain Status: Acute Response to Treatment: Improving Problem Text: surgery following continue tube feeds (7) Sepsis Status: Resolved Response to Treatment: Stable Problem Text: aspiration pneumonia (8) Diarrhea Status: Resolved Problem Text: c diff negative. (9) Asthma Status: Chronic Response to Treatment: Stable Problem Text: * Nebulizer treatments * Pt is not wheezing currently * continue to monitor (10) BPH (benign prostatic hyperplasia) Status: Chronic Response to Treatment: Stable Problem Text: continue home medications (11) Parkinson's disease Status: Chronic Problem Text: medications per NG tube (12) DM2 (diabetes mellitus, type 2) Status: Chronic Response to Treatment: Stable Problem Text: diet controlled non insulin dependent will monitor finger sticks insulin as needed (13) Dyslipidemia Status: Chronic Response to Treatment: Stable (14) Down's syndrome Status: Chronic Problem Text: * [facility] pt continue with home medications. * at baseline can walk to the bathroom with staff, sits in chair and watches tv , makes some noises but otherwise nonverbal. * has not been getting out of bed for a few days Plan / VTE VTE Prophylaxis Ordered?: Yes Subjective Review of Systems CC/HPI The patient is a 61-year-old male admitted with a reason for visit of Aspiration Pneumonia,Sepsis. General: Reports: ROS Unobtainable Objective Physical Examination General Exam: Positive: No Acute Distress, Negative: Alert (pt is sleeping and arousable to voice, unfortunately most of the exam consisted of him grunting and crying out but not making sense with his communication due to his baseline intellectual deficiency ), Cooperative Eye Exam: Positive: Conjunctiva & lids normal, PERRLA, Negative: Ptosis, Sclera icteric ENT Exam: Positive: Atraumatic, Mucous membr. moist/pink Neck Exam: Positive: Supple Chest Exam: Positive: Clear to auscultation, Normal air movement, Rhonchi (RUL) , Negative: Diminished, Wheezing Heart Exam: Positive: Normal S2, Rate Normal Telemetry: Positive: No significant arrhythmia Abdomen Exam: Positive: Normal bowel sounds, Soft, Negative: Hepatospenomegaly Extremity Exam: Negative: Clubbing, Edema Psych Exam: Positive: Other (intellectual deficiency ) Vital Signs/I&O Vital Signs Date Time Temp Pulse Resp B/P Pulse Ox O2 Delivery O2 Flow Rate FiO2 06/19/16 14:00 96.0 91 16 102/51 94 Nasal Cannula 2.0 06/16/16 07:25 35 I&O- Last 24 Hours up to 6 AM 06/19/16 06:00 Intake Total 1775 ml Balance 1775 ml Laboratory Data Labs 24H Laboratory Tests 2 06/18/16 23:28: Bedside Glucose (Misc Panel) 178H 06/19/16 06:22: Bedside Glucose (Misc Panel) 152H 06/19/16 06:35: Anion Gap 9, White Blood Count 6.4, Red Blood Count 4.02L, Hemoglobin 11.9L, Hematocrit 36.0L, Mean Corpuscular Volume 89.6, Mean Corpuscular Hemoglobin 29.6 , Mean Corpuscular Hemoglobin Concent 33.0, Red Cell Distribution Width 15.0H, Platelet Count 210, Neutrophils (%) (Auto) 63.0, Lymphocytes (%) (Auto) 23.8L, Monocytes (%) (Auto) 6.8H, Eosinophils (%) (Auto) 2.0, Basophils (%) (Auto) 1.1H , Neutrophils # (Auto) 4.1, Lymphocytes # (Auto) 1.5, Monocytes # (Auto) 0.4, Eosinophils # (Auto) 0.1, Basophils # (Auto) 0.1, Blood Urea Nitrogen 21H, Creatinine 0.80, Sodium Level 137, Potassium Level 4.5, Chloride Level 100, Carbon Dioxide Level 28, Calcium Level 8.5L, Glomerular Filtration Rate > 60.0, Large Unclassified Cells # 0.2, Large Unclassified Cells % 3.2, Vancomycin Level Trough 15.6 06/19/16 12:14: Bedside Glucose (Misc Panel) 187H 06/19/16 17:24: Bedside Glucose (Misc Panel) 189H CBC/BMP Laboratory Tests 06/19/16 06:35 Calcium Level 8.5 L, Red Blood Count 4.02 L, Mean Corpuscular Volume 89.6, Mean Corpuscular Hemoglobin 29.6, Mean Corpuscular Hemoglobin Concent 33.0, Red Cell Distribution Width 15.0 H, Neutrophils (%) (Auto) 63.0, Lymphocytes (%) (Auto) 23.8 L, Monocytes (%) (Auto) 6.8 H, Eosinophils (%) (Auto) 2.0, Basophils (%) ( Auto) 1.1 H, Neutrophils # (Auto) 4.1, Lymphocytes # (Auto) 1.5, Monocytes # ( Auto) 0.4, Eosinophils # (Auto) 0.1, Basophils # (Auto) 0.1 FSBS Laboratory Tests Test 06/18/16 23:28 06/19/16 06:22 06/19/16 12:14 06/19/16 17:24 Range/Units Bedside Glucose (Misc Panel) 178 152 187 189 80-115 MG/DL Microbiology Microbiology 06/16/16 MRSA Screen - Final, Complete 06/14/16 MRSA Screen - Final, Complete YOVANNY REAVES DO Jun 19, 2016 20:23
[2016-06-19 22:00] VITALS: BP 108/62
[2016-06-19] MEDS: ATORVASTATIN 20 MG TAB PO SCH (22:20)
[2016-06-19] MEDS: OLANZapine 5 MG TAB PEG SCH (22:20)
[2016-06-20] MEDS: HumaLOG INSULIN (NovoLOG) PER UNIT SC SCH ×5 (00:43→23:55)
[2016-06-20] MEDS: VANCOMYCIN HCL 1,000 MG, VIAL MATE ADAPTER 1 EACH in D5W 250 ML IV SCH ×2 (00:43→19:19)
[2016-06-20] MEDS: IPRATROPIUM 0.5MG/ALBUTEROL 2.5MG INH SOL UD 3ML (DUONEB)(J7620) NEB SCH ×4 (01:52→19:26)
[2016-06-20] MEDS: MEROPENEM INJ 1 GM in D5W MINI-BAG PLUS 100 ML IV SCH ×3 (02:17→18:48)
[2016-06-20] MEDS: LEVETIRACETAM IV SCH ×2 (03:07→16:56)
[2016-06-20] MEDS: D5W MINI IV SCH ×2 (03:07→16:56)
[2016-06-20] MEDS: SLF 3 ML SYR IV SCH ×3 (05:26→22:12)
[2016-06-20] MEDS: SINEMET 25-100 MG TAB NG SCH ×3 (05:26→18:56)
[2016-06-20] MEDS: ACETAMINOPHEN TAB 650MG DOSE (2X325MG) PO PRN (05:54)
[2016-06-20 06:00] VITALS: BP_SYST 109; BP_SYST 128; BP_SYST 148; BP_DIAS 53; BP_DIAS 78
--- NOTE | 2016-06-20 06:48 | EEG ---
DATE OF PROCEDURE: 06/19/2016 REFERRING PHYSICIAN: Dr. Pedro Murrell. DIAGNOSIS: Seizure. EEG NUMBER: 17 - 11. HISTORY: The patient is a 61-year-old male with history of respiratory insufficiency and pneumonia. The patient was not back to his baseline and had altered mental status. He was lethargic and did not act appropriately. It was thought that his symptoms were related to possible seizure activity. The patient was given Keppra and his symptoms improved. This EEG was done to rule out epileptic potential. He is currently on Keppra, vancomycin, Lipitor, Sinemet, Zyprexa. TECHNICAL DESCRIPTION: This digital EEG was recorded by 21 scalp, ear, and two EKG electrodes and was reviewed in bipolar and referential montages following reformatting in 10-20 international electrode placement system. INTERPRETATION: The patient was noted to be in awake and drowsy states during this EEG. Resting background rhythm consisted of 3-4 Hertz delta activity measuring 15 - 60 microvolts in amplitude. The patient remained drowsy and nonverbal throughout this study. No sleep was achieved. Hyperventilation could not be performed. Photic stimulation remained unremarkable. EKG revealed normal sinus rhythm. No lateralizing or epileptiform abnormalities were seen. No clinical or electrographic seizures were recorded. CONCLUSION: This EEG in awake and drowsy states is abnormal due to presence of generalized slowing and disorganization of background consistent with nonspecific diffuse cerebral dysfunction such as seen in encephalopathy due to multiple potential causes including toxic, metabolic, autoimmune, medication related or multifocal structural abnormalities. Clinical correlation is recommended.
[2016-06-20 06:56] LABS: BASO # 0.1 K/mm3 (0.0-0.2); BASO % 1.8 % (0.0-1.0); EOS # 0.2 K/mm3 (0.0-0.50); EOS % 3.2 % (0.0-3.0); LARGE UNSTAINED CELL # 0.2 K/mm3 (0.0-0.4); LARGE UNSTAINED CELL % 3.5 % (0.0-4.0); LYMPH # 1.5 K/mm3 (1.5-4.5); LYMPH % 32.4 % (24.0-44.0); MEAN CORPUSCULAR HEMOGLOBIN 30.1 pg (27.0-33.0); MEAN CORPUSCULAR HGB CONC 33.3 g/dl (32.0-36.5); MEAN CORPUSCULAR VOLUME 90.3 fl (80.0-96.0); MONO # 0.4 K/mm3 (0.0-0.8); MONO % 7.5 % (0.0-5.0); NEUTROPHILS # 2.4 K/mm3 (1.8-7.7); NEUTROPHILS % 51.5 % (36.0-66.0); PLATELET COUNT, AUTOMATED 190 k/mm3 (150-450); RED CELL DISTRIBUTION WIDTH 15.1 % (11.5-14.5); WHITE BLOOD COUNT 4.7 K/mm3 (4.0-10.0)
[2016-06-20 07:08] LABS: ALBUMIN 2.7 GM/DL (3.2-5.2); ALBUMIN/GLOBULIN RATIO 0.57 (1.00-1.93); ALKALINE PHOSPHATASE 67 U/L (45-117); ALT/SGPT 7 U/L (12-78); ANION GAP 8 MEQ/L (8-16); AST/SGOT 17 U/L (15-37); BILIRUBIN,TOTAL 0.6 MG/DL (0.2-1.0); BLOOD UREA NITROGEN 26 MG/DL (7-18); CALCIUM LEVEL 8.5 MG/DL (8.8-10.2); CARBON DIOXIDE LEVEL 30 MEQ/L (21-32); CHLORIDE LEVEL 99 MEQ/L (98-107); CREATININE FOR GFR 0.86 MG/DL (0.70-1.30); GLOMERULAR FILTRATION RATE > 60.0 (>49); GLUCOSE, FASTING 116 MG/DL (80-110); POTASSIUM SERUM 4.2 MEQ/L (3.5-5.1); SODIUM LEVEL 137 MEQ/L (136-145); TOTAL PROTEIN 7.4 GM/DL (6.4-8.2)
--- NOTE | 2016-06-20 08:26 | IPN ---
DATE: 06/20/2016 REASON FOR TODAY'S VISIT: Continue monitoring of percutaneous endoscopic gastrostomy tube placement. Resident is seen today for followup of his percutaneous endoscopic gastrostomy tube. Resident is lying in bed and is sleeping and is nonverbal. There is an aide from [facility] there present on exam. Since the last visit, resident has continued current medical treatment. Resident's tube feedings are going well and there is minimal residuals. Resident is being fed with Glucerna via percutaneous endoscopic gastrostomy tube. Patient is n.p.o. and aspiration risk precautions have been maintained. Resident is still in hospital due to other medical conditions. PHYSICAL EXAMINATION: Vitals: Temperature 97.3, pulse 75, respiratory rate 15, blood pressure 148/78, pulse ox 97% on 2 liters nasal cannula. Appearance: Patient is resting comfortably in bed. No acute distress. Cardiac: Normal S1, S2 with no clicks, rubs, gallops or murmurs. Lungs: Equal bilaterally. Patient just received nebulized treatment. Abdomen: Soft, nondistended. Bowel sounds heard to auscultation. Percutaneous endoscopic gastrostomy site tube shows some residue remaining from feedings through percutaneous endoscopic gastrostomy tube. Percutaneous endoscopic gastrostomy tube site is nonerythematous and shows no pus or signs of infection. Site is still patent and active. Extremity: No lower extremity edema. Pulse: Radial pulse 2/4 bilaterally. LABS: Most recent labs from today show sodium of 137, potassium 4.2, chloride 99, CO2 at 30, BUN 26, creatinine 0.86, fasting glucose 116. Labs also show white blood cell count of 4.7, hemoglobin 11.5, MCV 90.3, platelets 190. ASSESSMENT AND PLAN: Continue current treatment plan at this time. Patient will continue to have percutaneous endoscopic gastrostomy tube placement due to high risk of aspiration. Patient is still in hospital due to other medical problems. Patient can continue with current percutaneous endoscopic gastrostomy tube care. Monitor percutaneous endoscopic gastrostomy tube as needed. Will be ready for discharge when other medical conditions have resolved. Discussed plan with Dr. Tirso Paige D.O. My preceptor for this patient encounter was Dr. Tirso Paige. The preceptor was physically present in the building during the encounter and was fully available. As needed, all aspects of the patient interview, examination, medical decision making process, and medical care plan development were reviewed and approved by the preceptor. The preceptor is aware and concurs with the plan as stated in the body of this note and will attest to such by his/her cosignature. Attending note: He is tolerating tube feeds, and I do not see any more dark foul smelling drainage around the tube site. This could have been due to an injury in the transverse colon that sealed itself up vs. an infected hematoma in the abdominal wall that was working its way out. Either way, as long as it does not return there is no need to remove or replace the tube. Stable from my standpoint for return to [facility] once his respiratory issues have resolved. Follow up with me in the office as needed. Jagjit SHERIFF
[2016-06-20] MEDS: PARoxetine 20 MG TAB PEG SCH (10:06)
[2016-06-20] MEDS: LOMOTIL 2.5MG/0.025MG TABLET PO SCH (10:06)
[2016-06-20] MEDS: PANTOPRAZOLE 40MG INJ (PROTONIX) (C9113) IV SCH ×2 (10:07→20:45)
[2016-06-20] MEDS: NYSTATIN 100,000 UNITS/GM TOPICAL PWD 15 GM TOP SCH ×2 (10:07→20:46)
[2016-06-20] MEDS: POTASSIUM CHLORIDE 10% LIQ 20 MEQ/15 ML UDC PO SCH (10:07)
[2016-06-20 14:00] VITALS: BP 111/56
--- NOTE | 2016-06-20 15:11 | IPNPDOC ---
Assessment/Plan Date Seen The patient was seen on 06/20/16. Problems Problems: (1) Aspiration pneumonia Status: Acute Response to Treatment: Stable Problem Text: Status post 7 day treatment with zosyn and vancomycin and 2 days of levaquin Patient restarted on vancomycin and meropenem as the patient became hypoxic, and repeat imaging showed a worsening pneumonia We will transition the patient to a more narrow spectrum antibiotic in the next few days. Currently on 2 L of oxygen via nasal cannula Status post PEG tube placed on 06/07/16 (2) Irritation around percutaneous endoscopic gastrostomy (PEG) tube site Status: Resolved Response to Treatment: Stable Problem Text: Status post PEG tube placement on 06/07 CT was negative for any acute findings Surgery on board, and we will continue tube feeds for now. (3) Occasional tremors Status: Acute Response to Treatment: Stable Problem Text: Patient currently on Keppra twice a day for ? Seizure-like activity EEG report noted to have generalized slowing, but no acute epileptic and a focus noted We will recheck to neurology to see if we can wean off the Keppra as the patient has not had any more events, and this may have been metabolic in nature. (4) Acute respiratory failure with hypoxemia Status: Resolved Problem Text: Patient appears to be breathing comfortably on 2 L of oxygen via nasal cannula (5) Sepsis Status: Resolved Response to Treatment: Stable Problem Text: aspiration pneumonia (6) Diarrhea Status: Resolved Problem Text: c diff negative. (7) Asthma Status: Chronic Response to Treatment: Stable Problem Text: * Nebulizer treatments * Pt is not wheezing currently * continue to monitor (8) BPH (benign prostatic hyperplasia) Status: Chronic Response to Treatment: Stable Problem Text: continue home medications (9) Parkinson's disease Status: Chronic Problem Text: medications per NG tube (10) DM2 (diabetes mellitus, type 2) Status: Chronic Response to Treatment: Stable Problem Text: diet controlled non insulin dependent will monitor finger sticks insulin as needed (11) Dyslipidemia Status: Chronic Response to Treatment: Stable (12) Down's syndrome Status: Chronic Problem Text: * [facility] pt continue with home medications. * at baseline can walk to the bathroom with staff, sits in chair and watches tv , makes some noises but otherwise nonverbal. * has not been getting out of bed for a few days Plan / VTE VTE Prophylaxis Ordered?: Yes Subjective Review of Systems CC/HPI The patient is a 61-year-old male admitted with a reason for visit of Aspiration Pneumonia,Sepsis. Other systems Unable to obtain secondary to patient's clinical status. Objective Physical Examination General Exam: Positive: No Acute Distress, Negative: Alert, Cooperative Eye Exam: Positive: Conjunctiva & lids normal, PERRLA, Negative: Ptosis, Sclera icteric ENT Exam: Positive: Atraumatic, Mucous membr. moist/pink Neck Exam: Positive: Supple Chest Exam: Positive: Clear to auscultation, Normal air movement, Rhonchi (RUL) , Negative: Diminished, Wheezing Heart Exam: Positive: Normal S2, Rate Normal Telemetry: Positive: No significant arrhythmia Abdomen Exam: Positive: Normal bowel sounds, Soft, Negative: Hepatospenomegaly Extremity Exam: Negative: Clubbing, Edema Psych Exam: Positive: Other (intellectual deficiency ) Vital Signs/I&O Vital Signs Date Time Temp Pulse Resp B/P Pulse Ox O2 Delivery O2 Flow Rate FiO2 06/20/16 06:00 97.3 75 15 148/78 97 Nasal Cannula 2.0 06/16/16 07:25 35 I&O- Last 24 Hours up to 6 AM 06/20/16 05:59 Intake Total 1795 ml Output Total 0 ml Balance 1795 ml Laboratory Data Labs 24H Laboratory Tests 2 06/19/16 17:24: Bedside Glucose (Misc Panel) 189H 06/20/16 00:12: Bedside Glucose (Misc Panel) 161H 06/20/16 05:20: Bedside Glucose (Misc Panel) 137H 06/20/16 06:30: Blood Urea Nitrogen 26H, Creatinine 0.86, Sodium Level 137, Potassium Level 4.2 , Chloride Level 99, Carbon Dioxide Level 30, Calcium Level 8.5L, Aspartate Amino Transf (AST/SGOT) 17, Alanine Aminotransferase (ALT/SGPT) 7L, Alkaline Phosphatase 67, Total Bilirubin 0.6, Total Protein 7.4, Albumin 2.7L, Albumin/ Globulin Ratio 0.57L, Anion Gap 8, White Blood Count 4.7, Red Blood Count 3.81L , Hemoglobin 11.5L, Hematocrit 34.4L, Mean Corpuscular Volume 90.3, Mean Corpuscular Hemoglobin 30.1, Mean Corpuscular Hemoglobin Concent 33.3, Red Cell Distribution Width 15.1H, Platelet Count 190, Neutrophils (%) (Auto) 51.5, Lymphocytes (%) (Auto) 32.4, Monocytes (%) (Auto) 7.5H, Eosinophils (%) (Auto) 3.2H, Basophils (%) (Auto) 1.8H, Neutrophils # (Auto) 2.4, Lymphocytes # (Auto) 1.5, Monocytes # (Auto) 0.4, Eosinophils # (Auto) 0.2, Basophils # (Auto) 0.1, Glomerular Filtration Rate > 60.0, Large Unclassified Cells # 0.2, Large Unclassified Cells % 3.5 06/20/16 12:14: Bedside Glucose (Misc Panel) 171H CBC/BMP Laboratory Tests 06/20/16 06:30 Calcium Level 8.5 L, Aspartate Amino Transf (AST/SGOT) 17, Alanine Aminotransferase (ALT/SGPT) 7 L, Alkaline Phosphatase 67, Total Bilirubin 0.6, Total Protein 7.4, Albumin 2.7 L, Red Blood Count 3.81 L, Mean Corpuscular Volume 90.3, Mean Corpuscular Hemoglobin 30.1, Mean Corpuscular Hemoglobin Concent 33.3, Red Cell Distribution Width 15.1 H, Neutrophils (%) (Auto) 51.5, Lymphocytes (%) (Auto) 32.4, Monocytes (%) (Auto) 7.5 H, Eosinophils (%) (Auto) 3.2 H, Basophils (%) (Auto) 1.8 H, Neutrophils # (Auto) 2.4, Lymphocytes # (Auto ) 1.5, Monocytes # (Auto) 0.4, Eosinophils # (Auto) 0.2, Basophils # (Auto) 0.1 FSBS Laboratory Tests Test 06/19/16 17:24 06/20/16 00:12 06/20/16 05:20 06/20/16 12:14 Range/Units Bedside Glucose (Misc Panel) 189 161 137 171 80-115 MG/DL Microbiology Microbiology 06/16/16 MRSA Screen - Final, Complete 06/14/16 MRSA Screen - Final, Complete COREY KEY MD Jun 20, 2016 15:11
[2016-06-20] MEDS: ATORVASTATIN 20 MG TAB PO SCH (20:45)
[2016-06-20] MEDS: OLANZapine 5 MG TAB PEG SCH (20:45)
[2016-06-20 22:00] VITALS: BP 105/55
[2016-06-21] MEDS: IPRATROPIUM 0.5MG/ALBUTEROL 2.5MG INH SOL UD 3ML (DUONEB)(J7620) NEB SCH ×4 (01:32→19:31)
[2016-06-21] MEDS: MEROPENEM INJ 1 GM in D5W MINI-BAG PLUS 100 ML IV SCH ×2 (01:42→10:11)
[2016-06-21] MEDS: D5W MINI IV SCH (04:00)
[2016-06-21] MEDS: LEVETIRACETAM IV SCH (04:00)
[2016-06-21 06:00] VITALS: BP 103/56
[2016-06-21] MEDS: SINEMET 25-100 MG TAB NG SCH ×3 (06:20→18:18)
[2016-06-21] MEDS: HumaLOG INSULIN (NovoLOG) PER UNIT SC SCH ×3 (06:20→18:18)
[2016-06-21] MEDS: SLF 3 ML SYR IV SCH ×3 (06:21→21:18)
[2016-06-21 07:06] LABS: BASO # 0.1 K/mm3 (0.0-0.2); BASO % 1.3 % (0.0-1.0); EOS # 0.2 K/mm3 (0.0-0.50); EOS % 4.2 % (0.0-3.0); LARGE UNSTAINED CELL # 0.2 K/mm3 (0.0-0.4); LYMPH # 1.5 K/mm3 (1.5-4.5); LYMPH % 29.5 % (24.0-44.0); MEAN CORPUSCULAR HEMOGLOBIN 29.9 pg (27.0-33.0); MEAN CORPUSCULAR HGB CONC 33.5 g/dl (32.0-36.5); MEAN CORPUSCULAR VOLUME 89.2 fl (80.0-96.0); MONO # 0.4 K/mm3 (0.0-0.8); MONO % 7.9 % (0.0-5.0); NEUTROPHILS # 2.7 K/mm3 (1.8-7.7); NEUTROPHILS % 54.1 % (36.0-66.0); PLATELET COUNT, AUTOMATED 190 k/mm3 (150-450); RED CELL DISTRIBUTION WIDTH 15.1 % (11.5-14.5)
[2016-06-21 07:18] LABS: ALBUMIN 2.8 GM/DL (3.2-5.2); ALBUMIN/GLOBULIN RATIO 0.55 (1.00-1.93); ALKALINE PHOSPHATASE 65 U/L (45-117); ALT/SGPT 18 U/L (12-78); ANION GAP 5 MEQ/L (8-16); AST/SGOT 19 U/L (15-37); BILIRUBIN,TOTAL 0.5 MG/DL (0.2-1.0); BLOOD UREA NITROGEN 25 MG/DL (7-18); CALCIUM LEVEL 8.4 MG/DL (8.8-10.2); CARBON DIOXIDE LEVEL 33 MEQ/L (21-32); CHLORIDE LEVEL 99 MEQ/L (98-107); CREATININE FOR GFR 0.85 MG/DL (0.70-1.30); GLOMERULAR FILTRATION RATE > 60.0 (>49); GLUCOSE, FASTING 152 MG/DL (80-110); POTASSIUM SERUM 4.3 MEQ/L (3.5-5.1); SODIUM LEVEL 137 MEQ/L (136-145); TOTAL PROTEIN 7.9 GM/DL (6.4-8.2)
[2016-06-21] MEDS: PANTOPRAZOLE 40MG INJ (PROTONIX) (C9113) IV SCH ×2 (10:10→21:16)
[2016-06-21] MEDS: PARoxetine 20 MG TAB PEG SCH (10:10)
[2016-06-21] MEDS: NYSTATIN 100,000 UNITS/GM TOPICAL PWD 15 GM TOP SCH ×2 (10:10→21:17)
[2016-06-21] MEDS: POTASSIUM CHLORIDE 10% LIQ 20 MEQ/15 ML UDC PO SCH (10:10)
[2016-06-21] MEDS: VANCOMYCIN HCL 1,000 MG, VIAL MATE ADAPTER 1 EACH in D5W 250 ML IV SCH (12:39)
[2016-06-21 14:00] VITALS: BP 134/72
--- NOTE | 2016-06-21 15:48 | IPNPDOC ---
Assessment/Plan Date Seen The patient was seen on 06/21/16. Problems Problems: (1) Aspiration pneumonia Status: Chronic Response to Treatment: Improving Problem Text: Status post 7 day treatment with zosyn and vancomycin and 2 days of levaquin Patient restarted on vancomycin and meropenem as the patient became hypoxic, and repeat imaging showed a worsening pneumonia-s/p completion of additional 7 days of empiric antibiotic therapy We will transition the patient to Levaquin for an additional few days to complete course of antibiotics Currently on 2 L of oxygen via nasal cannula--we will attempt to wean the patient off of this Status post PEG tube placed on 06/07/16 (2) Irritation around percutaneous endoscopic gastrostomy (PEG) tube site Status: Resolved Response to Treatment: Stable Problem Text: Status post PEG tube placement on 06/07 CT was negative for any acute findings Surgery on board, and we will continue tube feeds for now. (3) Occasional tremors Status: Chronic Response to Treatment: Stable Problem Text: EEG report noted to have generalized slowing, but no acute epileptic and a focus noted I did have the chance to discuss the patient's ? Seizure-like activity versus underlying tremors with the patient's nurse over at the [facility] today at the bedside. She states that the patient does have baseline tremors at times which is attributed to his underlying Parkinson's disease. Given the patient's baseline episodic tremors and no acute findings on EEG-we will discontinue the patient's Keppra (4) Acute respiratory failure with hypoxemia Status: Resolved Problem Text: Patient appears to be breathing comfortably on 2 L of oxygen via nasal cannula-we will continue to try to wean the patient off 2 L of continuous oxygen At baseline he uses 2 L of oxygen only at night. (5) Sepsis Status: Resolved Response to Treatment: Stable Problem Text: aspiration pneumonia (6) Diarrhea Status: Resolved Problem Text: c diff negative. (7) Asthma Status: Chronic Response to Treatment: Stable Problem Text: * Nebulizer treatments * Pt is not wheezing currently * continue to monitor (8) BPH (benign prostatic hyperplasia) Status: Chronic Response to Treatment: Stable Problem Text: continue home medications (9) Parkinson's disease Status: Chronic Problem Text: medications per NG tube (10) DM2 (diabetes mellitus, type 2) Status: Chronic Response to Treatment: Stable Problem Text: diet controlled non insulin dependent will monitor finger sticks insulin as needed (11) Dyslipidemia Status: Chronic Response to Treatment: Stable (12) Down's syndrome Status: Chronic Problem Text: * [facility] pt continue with home medications. * at baseline can walk to the bathroom with staff, sits in chair and watches tv , makes some noises but otherwise nonverbal. * has not been getting out of bed for a few days Plan / VTE VTE Prophylaxis Ordered?: Yes Disposition After discussing the patient's care plan with the ACADEMIC ADVISOR from [facility] at bedside today , we will continue to down titrate the patient's oxygen requirements, and try bolus feedings via the PEG tube. Anticipate discharge to [facility] in the next 48 hours. Subjective Review of Systems CC/HPI The patient is a 61-year-old male admitted with a reason for visit of Aspiration Pneumonia,Sepsis. General: Reports: ROS Unobtainable Objective Physical Examination General Exam: Positive: No Acute Distress, Negative: Alert, Cooperative Eye Exam: Positive: Conjunctiva & lids normal, PERRLA, Negative: Ptosis, Sclera icteric ENT Exam: Positive: Atraumatic, Mucous membr. moist/pink Neck Exam: Positive: Supple Chest Exam: Positive: Clear to auscultation, Normal air movement, Rhonchi (RUL) , Negative: Diminished, Wheezing Heart Exam: Positive: Normal S2, Rate Normal Telemetry: Positive: No significant arrhythmia Abdomen Exam: Positive: Normal bowel sounds, Soft, Negative: Hepatospenomegaly Extremity Exam: Negative: Clubbing, Edema Psych Exam: Positive: Other (intellectual deficiency ) Vital Signs/I&O Vital Signs Date Time Temp Pulse Resp B/P Pulse Ox O2 Delivery O2 Flow Rate FiO2 06/21/16 09:00 Nasal Cannula 2.0 06/21/16 06:00 97.1 93 16 103/56 91 06/16/16 07:25 35 I&O- Last 24 Hours up to 6 AM 06/21/16 06:00 Intake Total 2681 ml Output Total 0 ml Balance 2681 ml Laboratory Data Labs 24H Laboratory Tests 2 06/20/16 18:15: Bedside Glucose (Misc Panel) 181H 06/20/16 23:40: Bedside Glucose (Misc Panel) 144H 06/21/16 05:26: Bedside Glucose (Misc Panel) 158H 06/21/16 06:40: Blood Urea Nitrogen 25H, Creatinine 0.85, Sodium Level 137, Potassium Level 4.3 , Chloride Level 99, Carbon Dioxide Level 33H, Calcium Level 8.4L, Aspartate Amino Transf (AST/SGOT) 19, Alanine Aminotransferase (ALT/SGPT) 18, Alkaline Phosphatase 65, Total Bilirubin 0.5, Total Protein 7.9, Albumin 2.8L, Albumin/ Globulin Ratio 0.55L, Anion Gap 5L, White Blood Count 5.0, Red Blood Count 3.87L , Hemoglobin 11.6L, Hematocrit 34.5L, Mean Corpuscular Volume 89.2, Mean Corpuscular Hemoglobin 29.9, Mean Corpuscular Hemoglobin Concent 33.5, Red Cell Distribution Width 15.1H, Platelet Count 190, Neutrophils (%) (Auto) 54.1, Lymphocytes (%) (Auto) 29.5, Monocytes (%) (Auto) 7.9H, Eosinophils (%) (Auto) 4.2H, Basophils (%) (Auto) 1.3H, Neutrophils # (Auto) 2.7, Lymphocytes # (Auto) 1.5, Monocytes # (Auto) 0.4, Eosinophils # (Auto) 0.2, Basophils # (Auto) 0.1, Glomerular Filtration Rate > 60.0, Large Unclassified Cells # 0.2, Large Unclassified Cells % 3.0 06/21/16 12:23: Bedside Glucose (Misc Panel) 156H CBC/BMP Laboratory Tests 06/21/16 06:40 Calcium Level 8.4 L, Aspartate Amino Transf (AST/SGOT) 19, Alanine Aminotransferase (ALT/SGPT) 18, Alkaline Phosphatase 65, Total Bilirubin 0.5, Total Protein 7.9, Albumin 2.8 L, Red Blood Count 3.87 L, Mean Corpuscular Volume 89.2, Mean Corpuscular Hemoglobin 29.9, Mean Corpuscular Hemoglobin Concent 33.5, Red Cell Distribution Width 15.1 H, Neutrophils (%) (Auto) 54.1, Lymphocytes (%) (Auto) 29.5, Monocytes (%) (Auto) 7.9 H, Eosinophils (%) (Auto) 4.2 H, Basophils (%) (Auto) 1.3 H, Neutrophils # (Auto) 2.7, Lymphocytes # (Auto ) 1.5, Monocytes # (Auto) 0.4, Eosinophils # (Auto) 0.2, Basophils # (Auto) 0.1 FSBS Laboratory Tests Test 06/20/16 18:15 06/20/16 23:40 06/21/16 05:26 06/21/16 12:23 Range/Units Bedside Glucose (Misc Panel) 181 144 158 156 80-115 MG/DL Microbiology Microbiology 06/16/16 MRSA Screen - Final, Complete 06/14/16 MRSA Screen - Final, Complete COREY KEY MD Jun 21, 2016 15:48
[2016-06-21] MEDS: ACETAMINOPHEN TAB 650MG DOSE (2X325MG) PO PRN (18:19)
[2016-06-21 19:40] VITALS: O2SAT 89
[2016-06-21 20:00] VITALS: BP 106/57
[2016-06-21] MEDS: LOMOTIL 2.5MG/0.025MG TABLET PO SCH (21:16)
[2016-06-21] MEDS: OLANZapine 5 MG TAB PEG SCH (21:16)
[2016-06-21] MEDS: ATORVASTATIN 20 MG TAB PO SCH (21:16)
[2016-06-22] MEDS: HumaLOG INSULIN (NovoLOG) PER UNIT SC SCH ×4 (00:24→18:23)
[2016-06-22] MEDS: ACETAMINOPHEN TAB 650MG DOSE (2X325MG) PO PRN (00:28)
[2016-06-22] MEDS: IPRATROPIUM 0.5MG/ALBUTEROL 2.5MG INH SOL UD 3ML (DUONEB)(J7620) NEB SCH ×4 (02:00→19:22)
[2016-06-22] MEDS: SINEMET 25-100 MG TAB NG SCH ×3 (05:26→18:22)
[2016-06-22] MEDS: SLF 3 ML SYR IV SCH ×3 (05:27→22:28)
[2016-06-22 06:00] VITALS: BP 124/59
[2016-06-22 06:43] LABS: BASO # 0.1 K/mm3 (0.0-0.2); BASO % 0.7 % (0.0-1.0); EOS # 0.2 K/mm3 (0.0-0.50); EOS % 1.7 % (0.0-3.0); LARGE UNSTAINED CELL # 0.1 K/mm3 (0.0-0.4); LARGE UNSTAINED CELL % 0.7 % (0.0-4.0); LYMPH # 1.3 K/mm3 (1.5-4.5); LYMPH % 8.9 % (24.0-44.0); MEAN CORPUSCULAR HEMOGLOBIN 30.8 pg (27.0-33.0); MEAN CORPUSCULAR HGB CONC 34.4 g/dl (32.0-36.5); MEAN CORPUSCULAR VOLUME 89.5 fl (80.0-96.0); MONO # 0.6 K/mm3 (0.0-0.8); MONO % 4.3 % (0.0-5.0); NEUTROPHILS # 12.3 K/mm3 (1.8-7.7); NEUTROPHILS % 83.8 % (36.0-66.0); PLATELET COUNT, AUTOMATED 181 k/mm3 (150-450); RED CELL DISTRIBUTION WIDTH 15.5 % (11.5-14.5); WHITE BLOOD COUNT 14.7 K/mm3 (4.0-10.0)
[2016-06-22 07:02] LABS: ALBUMIN 2.9 GM/DL (3.2-5.2); ALBUMIN/GLOBULIN RATIO 0.63 (1.00-1.93); ALKALINE PHOSPHATASE 80 U/L (45-117); ALT/SGPT 12 U/L (12-78); ANION GAP 4 MEQ/L (8-16); AST/SGOT 15 U/L (15-37); BILIRUBIN,TOTAL 0.7 MG/DL (0.2-1.0); BLOOD UREA NITROGEN 28 MG/DL (7-18); CALCIUM LEVEL 8.5 MG/DL (8.8-10.2); CARBON DIOXIDE LEVEL 33 MEQ/L (21-32); CHLORIDE LEVEL 100 MEQ/L (98-107); CREATININE FOR GFR 0.92 MG/DL (0.70-1.30); GLOMERULAR FILTRATION RATE > 60.0 (>49); GLUCOSE, FASTING 170 MG/DL (80-110); POTASSIUM SERUM 4.6 MEQ/L (3.5-5.1); SODIUM LEVEL 137 MEQ/L (136-145); TOTAL PROTEIN 7.5 GM/DL (6.4-8.2)
[2016-06-22] MEDS: PANTOPRAZOLE 40MG INJ (PROTONIX) (C9113) IV SCH ×2 (10:36→22:28)
[2016-06-22] MEDS: POTASSIUM CHLORIDE 10% LIQ 20 MEQ/15 ML UDC PO SCH (10:36)
[2016-06-22] MEDS: LOMOTIL 2.5MG/0.025MG TABLET PO SCH ×2 (10:36→22:28)
[2016-06-22] MEDS: LevoFLOXacin 500 MG in APPROPRIATE DILUENT 1 EA IV SCH (10:37)
[2016-06-22] MEDS: NYSTATIN 100,000 UNITS/GM TOPICAL PWD 15 GM TOP SCH ×2 (10:37→22:28)
[2016-06-22] MEDS: PARoxetine 20 MG TAB PEG SCH (10:37)
--- NOTE | 2016-06-22 12:37 | IPNPDOC ---
Assessment/Plan Date Seen The patient was seen on 06/22/16. Problems Problems: (1) Aspiration pneumonia Status: Chronic Response to Treatment: Improving Problem Text: Status post 7 day treatment with zosyn and vancomycin and 2 days of levaquin Patient restarted on vancomycin and meropenem as the patient became hypoxic, and repeat imaging showed a worsening pneumonia-s/p completion of additional 7 days of empiric antibiotic therapy We will transition the patient to Levaquin for an additional few days to complete course of antibiotics Currently on 2 L of oxygen via nasal cannula--we will attempt to wean the patient off of this Status post PEG tube placed on 06/07/16 (2) Leukocytosis Status: Acute Problem Text: WBC increased to 14K this AM---however the patient has not had any fevers, any increase in O2 saturation, any swelling/tenderness around PEG Tube site, or any change in clinical/mental status. No other overt source of infection I do suspect that this may be related to stress/reaction from increased physical activity/OOB yesterday We will continue to monitor at this time (3) Irritation around percutaneous endoscopic gastrostomy (PEG) tube site Status: Resolved Response to Treatment: Stable Problem Text: Status post PEG tube placement on 06/07 CT was negative for any acute findings Surgery on board, and we will continue tube feeds for now. (4) Occasional tremors Status: Chronic Response to Treatment: Stable Problem Text: EEG report noted to have generalized slowing, but no acute epileptic and a focus noted I did have the chance to discuss the patient's ? Seizure-like activity versus underlying tremors with the patient's nurse over at the [facility] today at the bedside. She states that the patient does have baseline tremors at times which is attributed to his underlying Parkinson's disease. Given the patient's baseline episodic tremors and no acute findings on EEG-we will discontinue the patient's Keppra (5) Acute respiratory failure with hypoxemia Status: Resolved Problem Text: Patient appears to be breathing comfortably on 2 L of oxygen via nasal cannula-we will continue to try to wean the patient off 2 L of continuous oxygen At baseline he uses 2 L of oxygen only at night. (6) Sepsis Status: Resolved Response to Treatment: Stable Problem Text: aspiration pneumonia (7) Diarrhea Status: Resolved Problem Text: c diff negative. (8) Asthma Status: Chronic Response to Treatment: Stable Problem Text: * Nebulizer treatments * Pt is not wheezing currently * continue to monitor (9) BPH (benign prostatic hyperplasia) Status: Chronic Response to Treatment: Stable Problem Text: continue home medications (10) Parkinson's disease Status: Chronic Problem Text: medications per NG tube (11) DM2 (diabetes mellitus, type 2) Status: Chronic Response to Treatment: Stable Problem Text: diet controlled non insulin dependent will monitor finger sticks insulin as needed (12) Dyslipidemia Status: Chronic Response to Treatment: Stable (13) Down's syndrome Status: Chronic Problem Text: * [facility] pt continue with home medications. * at baseline can walk to the bathroom with staff, sits in chair and watches tv , makes some noises but otherwise nonverbal. * has not been getting out of bed for a few days Plan / VTE VTE Prophylaxis Ordered?: Yes Subjective Review of Systems CC/HPI The patient is a 61-year-old male admitted with a reason for visit of Aspiration Pneumonia,Sepsis. General: Reports: ROS Unobtainable Objective Physical Examination General Exam: Positive: No Acute Distress, Negative: Alert, Cooperative Eye Exam: Positive: Conjunctiva & lids normal, PERRLA, Negative: Ptosis, Sclera icteric ENT Exam: Positive: Atraumatic, Mucous membr. moist/pink Neck Exam: Positive: Supple Chest Exam: Positive: Clear to auscultation, Normal air movement, Rhonchi (RUL) , Negative: Diminished, Wheezing Heart Exam: Positive: Normal S2, Rate Normal Telemetry: Positive: No significant arrhythmia Abdomen Exam: Positive: Normal bowel sounds, Soft, Negative: Hepatospenomegaly Extremity Exam: Negative: Clubbing, Edema Psych Exam: Positive: Other (intellectual deficiency ) Vital Signs/I&O Vital Signs Date Time Temp Pulse Resp B/P Pulse Ox O2 Delivery O2 Flow Rate FiO2 06/22/16 06:00 97.1 85 21 124/59 91 Nasal Cannula 2.0 06/16/16 07:25 35 I&O- Last 24 Hours up to 6 AM 06/22/16 06:00 Intake Total 780 ml Output Total 0 ml Balance 780 ml Laboratory Data Labs 24H Laboratory Tests 2 06/21/16 17:45: Bedside Glucose (Misc Panel) 138H 06/21/16 23:19: Bedside Glucose (Misc Panel) 148H 06/22/16 06:09: Bedside Glucose (Misc Panel) 177H 06/22/16 06:13: Blood Urea Nitrogen 28H, Creatinine 0.92, Sodium Level 137, Potassium Level 4.6 , Chloride Level 100, Carbon Dioxide Level 33H, Calcium Level 8.5L, Aspartate Amino Transf (AST/SGOT) 15, Alanine Aminotransferase (ALT/SGPT) 12, Alkaline Phosphatase 80, Total Bilirubin 0.7, Total Protein 7.5, Albumin 2.9L, Albumin/ Globulin Ratio 0.63L, Anion Gap 4L, White Blood Count 14.7H, Red Blood Count 3.78L, Hemoglobin 11.6L, Hematocrit 33.9L, Mean Corpuscular Volume 89.5, Mean Corpuscular Hemoglobin 30.8, Mean Corpuscular Hemoglobin Concent 34.4, Red Cell Distribution Width 15.5H, Platelet Count 181, Neutrophils (%) (Auto) 83.8H, Lymphocytes (%) (Auto) 8.9L, Monocytes (%) (Auto) 4.3, Eosinophils (%) (Auto) 1.7, Basophils (%) (Auto) 0.7, Neutrophils # (Auto) 12.3H, Lymphocytes # (Auto) 1.3L, Monocytes # (Auto) 0.6, Eosinophils # (Auto) 0.2, Basophils # (Auto) 0.1, Glomerular Filtration Rate > 60.0, Large Unclassified Cells # 0.1, Large Unclassified Cells % 0.7 06/22/16 11:53: Bedside Glucose (Misc Panel) 174H CBC/BMP Laboratory Tests 06/22/16 06:13 Calcium Level 8.5 L, Aspartate Amino Transf (AST/SGOT) 15, Alanine Aminotransferase (ALT/SGPT) 12, Alkaline Phosphatase 80, Total Bilirubin 0.7, Total Protein 7.5, Albumin 2.9 L, Red Blood Count 3.78 L, Mean Corpuscular Volume 89.5, Mean Corpuscular Hemoglobin 30.8, Mean Corpuscular Hemoglobin Concent 34.4, Red Cell Distribution Width 15.5 H, Neutrophils (%) (Auto) 83.8 H , Lymphocytes (%) (Auto) 8.9 L, Monocytes (%) (Auto) 4.3, Eosinophils (%) (Auto ) 1.7, Basophils (%) (Auto) 0.7, Neutrophils # (Auto) 12.3 H, Lymphocytes # ( Auto) 1.3 L, Monocytes # (Auto) 0.6, Eosinophils # (Auto) 0.2, Basophils # (Auto ) 0.1 FSBS Laboratory Tests Test 06/21/16 17:45 06/21/16 23:19 06/22/16 06:09 06/22/16 11:53 Range/Units Bedside Glucose (Misc Panel) 138 148 177 174 80-115 MG/DL Microbiology Microbiology 06/16/16 MRSA Screen - Final, Complete 06/14/16 MRSA Screen - Final, Complete COREY KEY MD Jun 22, 2016 12:37
[2016-06-22 14:00] VITALS: BP 111/55
[2016-06-22 19:42] VITALS: O2SAT 89
[2016-06-22 22:00] VITALS: BP 106/58
[2016-06-22] MEDS: ATORVASTATIN 20 MG TAB PO SCH (22:27)
[2016-06-22] MEDS: OLANZapine 5 MG TAB PEG SCH (22:28)
[2016-06-23] MEDS: HumaLOG INSULIN (NovoLOG) PER UNIT SC SCH ×4 (00:02→18:08)
[2016-06-23] MEDS: IPRATROPIUM 0.5MG/ALBUTEROL 2.5MG INH SOL UD 3ML (DUONEB)(J7620) NEB SCH ×4 (02:00→20:07)
[2016-06-23] MEDS: SLF 3 ML SYR IV SCH ×3 (05:18→22:00)
[2016-06-23] MEDS: SINEMET 25-100 MG TAB NG SCH ×3 (05:18→18:08)
[2016-06-23 06:00] VITALS: BP 117/56
[2016-06-23 07:34] LABS: MEAN CORPUSCULAR HEMOGLOBIN 30.8 pg (27.0-33.0); MEAN CORPUSCULAR HGB CONC 34.2 g/dl (32.0-36.5); MEAN CORPUSCULAR VOLUME 90.2 fl (80.0-96.0); RED CELL DISTRIBUTION WIDTH 15.4 % (11.5-14.5); WHITE BLOOD COUNT 8.4 K/mm3 (4.0-10.0)
[2016-06-23] MEDS: LevoFLOXacin 500 MG in APPROPRIATE DILUENT 1 EA IV SCH (09:25)
[2016-06-23] MEDS: PARoxetine 20 MG TAB PEG SCH (09:25)
[2016-06-23] MEDS: PANTOPRAZOLE 40MG INJ (PROTONIX) (C9113) IV SCH ×2 (09:25→20:42)
[2016-06-23] MEDS: LOMOTIL 2.5MG/0.025MG TABLET PO SCH ×2 (09:25→20:42)
[2016-06-23] MEDS: NYSTATIN 100,000 UNITS/GM TOPICAL PWD 15 GM TOP SCH ×2 (09:26→20:42)
[2016-06-23] MEDS: POTASSIUM CHLORIDE 10% LIQ 20 MEQ/15 ML UDC PO SCH (09:26)
[2016-06-23 14:00] VITALS: BP 111/59
--- NOTE | 2016-06-23 16:07 | IPNPDOC ---
Assessment/Plan Date Seen The patient was seen on 06/23/16. Problems Problems: (1) Aspiration pneumonia Status: Chronic Response to Treatment: Improving Problem Text: Status post 7 day treatment with zosyn and vancomycin and 2 days of levaquin Patient restarted on vancomycin and meropenem as the patient became hypoxic, and repeat imaging showed a worsening pneumonia-s/p completion of additional 7 days of empiric antibiotic therapy We will transition the patient to Levaquin for an additional few days to complete course of antibiotics Currently on 2 L of oxygen via nasal cannula--we will attempt to wean the patient off of this Status post PEG tube placed on 06/07/16---> patient currently on continuous feeds, given the patient's recurrent aspiration pneumonia-would recommend continuing on continuous feeds for now and withholding from bolus feeding as there is an increased risk of aspiration. This can be attempted in another 2-4 weeks after the patient's underlying pneumonia resolves. (2) Leukocytosis Status: Resolved (3) Irritation around percutaneous endoscopic gastrostomy (PEG) tube site Status: Resolved Response to Treatment: Stable Problem Text: Status post PEG tube placement on 06/07 CT was negative for any acute findings Surgery on board, and we will continue tube feeds for now. (4) Occasional tremors Status: Chronic Response to Treatment: Stable Problem Text: EEG report noted to have generalized slowing, but no acute epileptic and a focus noted I did have the chance to discuss the patient's ? Seizure-like activity versus underlying tremors with the patient's nurse over at the [facility] today at the bedside. She states that the patient does have baseline tremors at times which is attributed to his underlying Parkinson's disease. Given the patient's baseline episodic tremors and no acute findings on EEG-we will discontinue the patient's Keppra (5) Acute respiratory failure with hypoxemia Status: Resolved Problem Text: Patient appears to be breathing comfortably on 2 L of oxygen via nasal cannula-we will continue to try to wean the patient off 2 L of continuous oxygen At baseline he uses 2 L of oxygen only at night. (6) Sepsis Status: Resolved Response to Treatment: Stable Problem Text: aspiration pneumonia (7) Diarrhea Status: Resolved Problem Text: c diff negative. (8) Asthma Status: Chronic Response to Treatment: Stable Problem Text: * Nebulizer treatments * Pt is not wheezing currently * continue to monitor (9) BPH (benign prostatic hyperplasia) Status: Chronic Response to Treatment: Stable Problem Text: continue home medications (10) Parkinson's disease Status: Chronic Problem Text: medications per NG tube (11) DM2 (diabetes mellitus, type 2) Status: Chronic Response to Treatment: Stable Problem Text: diet controlled non insulin dependent will monitor finger sticks insulin as needed (12) Dyslipidemia Status: Chronic Response to Treatment: Stable (13) Down's syndrome Status: Chronic Problem Text: * [facility] pt continue with home medications. * at baseline can walk to the bathroom with staff, sits in chair and watches tv , makes some noises but otherwise nonverbal. * has not been getting out of bed for a few days Plan / VTE VTE Prophylaxis Ordered?: Yes Subjective Review of Systems CC/HPI The patient is a 61-year-old male admitted with a reason for visit of Aspiration Pneumonia,Sepsis. General: Reports: ROS Unobtainable Objective Physical Examination General Exam: Positive: No Acute Distress, Negative: Alert, Cooperative Eye Exam: Positive: Conjunctiva & lids normal, PERRLA, Negative: Ptosis, Sclera icteric ENT Exam: Positive: Atraumatic, Mucous membr. moist/pink Neck Exam: Positive: Supple Chest Exam: Positive: Clear to auscultation, Normal air movement, Rhonchi (RUL) , Negative: Diminished, Wheezing Heart Exam: Positive: Normal S2, Rate Normal Telemetry: Positive: No significant arrhythmia Abdomen Exam: Positive: Normal bowel sounds, Soft, Negative: Hepatospenomegaly Extremity Exam: Negative: Clubbing, Edema Psych Exam: Positive: Other (intellectual deficiency ) Vital Signs/I&O Vital Signs Date Time Temp Pulse Resp B/P Pulse Ox O2 Delivery O2 Flow Rate FiO2 06/23/16 14:20 91 Nasal Cannula 1.0 06/23/16 14:00 97.0 89 18 111/59 I&O- Last 24 Hours up to 6 AM 06/23/16 06:00 Intake Total 1180 ml Output Total 0 ml Balance 1180 ml Laboratory Data Labs 24H Laboratory Tests 2 06/22/16 16:55: Bedside Glucose (Misc Panel) 134H 06/22/16 23:25: Bedside Glucose (Misc Panel) 177H 06/23/16 05:31: Bedside Glucose (Misc Panel) 103 06/23/16 11:56: Bedside Glucose (Misc Panel) 143H CBC/BMP Laboratory Tests 06/23/16 07:12 Red Blood Count 3.37 L, Mean Corpuscular Volume 90.2, Mean Corpuscular Hemoglobin 30.8, Mean Corpuscular Hemoglobin Concent 34.2, Red Cell Distribution Width 15.4 H FSBS Laboratory Tests Test 06/22/16 16:55 06/22/16 23:25 06/23/16 05:31 06/23/16 11:56 Range/Units Bedside Glucose (Misc Panel) 134 177 103 143 80-115 MG/DL Microbiology Microbiology 06/16/16 MRSA Screen - Final, Complete 06/14/16 MRSA Screen - Final, Complete COREY KEY MD Jun 23, 2016 16:07 Microbiology 06/16/16 MRSA Screen - Final, Complete 06/14/16 MRSA Screen - Final, Complete COREY KEY MD Jun 23, 2016 16:07
[2016-06-23] MEDS: OLANZapine 5 MG TAB PEG SCH (20:42)
[2016-06-23] MEDS: ATORVASTATIN 20 MG TAB PO SCH (20:42)
[2016-06-23 22:00] VITALS: BP 115/73
[2016-06-24] MEDS: HumaLOG INSULIN (NovoLOG) PER UNIT SC SCH ×4 (00:19→18:22)
[2016-06-24] MEDS: IPRATROPIUM 0.5MG/ALBUTEROL 2.5MG INH SOL UD 3ML (DUONEB)(J7620) NEB SCH ×4 (01:34→19:28)
[2016-06-24] MEDS: SINEMET 25-100 MG TAB NG SCH ×3 (05:45→18:22)
[2016-06-24] MEDS: SLF 3 ML SYR IV SCH ×3 (05:46→22:11)
[2016-06-24 06:00] VITALS: BP 125/62
[2016-06-24] MEDS: PARoxetine 20 MG TAB PEG SCH (09:49)
[2016-06-24] MEDS: LOMOTIL 2.5MG/0.025MG TABLET PO SCH ×2 (09:49→22:10)
[2016-06-24] MEDS: POTASSIUM CHLORIDE 10% LIQ 20 MEQ/15 ML UDC PO SCH (09:50)
[2016-06-24] MEDS: NYSTATIN 100,000 UNITS/GM TOPICAL PWD 15 GM TOP SCH ×2 (09:50→22:11)
[2016-06-24] MEDS: LevoFLOXacin 500 MG in APPROPRIATE DILUENT 1 EA IV SCH (09:50)
--- NOTE | 2016-06-24 10:39 | IPNPDOC ---
Assessment/Plan Date Seen The patient was seen on 06/24/16. Problems Problems: (1) Aspiration pneumonia Status: Chronic Response to Treatment: Improving Problem Text: Status post 7 day treatment with zosyn and vancomycin and 2 days of levaquin Patient restarted on vancomycin and meropenem as the patient became hypoxic, and repeat imaging showed a worsening pneumonia-s/p completion of additional 7 days of empiric antibiotic therapy We will transition the patient to Levaquin for an additional few days to complete course of antibiotics Currently on 2 L of oxygen via nasal cannula--we will attempt to wean the patient off of this Status post PEG tube placed on 06/07/16---> patient currently on continuous feeds, given the patient's recurrent aspiration pneumonia-would recommend continuing on continuous feeds for now and withholding from bolus feeding as there is an increased risk of aspiration. This can be attempted in another 2-4 weeks after the patient's underlying pneumonia resolves. (2) Leukocytosis Status: Resolved (3) Irritation around percutaneous endoscopic gastrostomy (PEG) tube site Status: Resolved Response to Treatment: Stable Problem Text: Status post PEG tube placement on 06/07 CT was negative for any acute findings Surgery on board, and we will continue tube feeds for now. (4) Occasional tremors Status: Chronic Response to Treatment: Stable Problem Text: EEG report noted to have generalized slowing, but no acute epileptic and a focus noted I did have the chance to discuss the patient's ? Seizure-like activity versus underlying tremors with the patient's nurse over at the [facility] today at the bedside. She states that the patient does have baseline tremors at times which is attributed to his underlying Parkinson's disease. Given the patient's baseline episodic tremors and no acute findings on EEG-we will discontinue the patient's Keppra (5) Acute respiratory failure with hypoxemia Status: Resolved Problem Text: Patient appears to be breathing comfortably on 2 L of oxygen via nasal cannula-we will continue to try to wean the patient off 2 L of continuous oxygen At baseline he uses 2 L of oxygen only at night. (6) Sepsis Status: Resolved Response to Treatment: Stable Problem Text: aspiration pneumonia (7) Diarrhea Status: Resolved Problem Text: c diff negative. (8) Asthma Status: Chronic Response to Treatment: Stable Problem Text: * Nebulizer treatments * Pt is not wheezing currently * continue to monitor (9) BPH (benign prostatic hyperplasia) Status: Chronic Response to Treatment: Stable Problem Text: continue home medications (10) Parkinson's disease Status: Chronic Problem Text: medications per NG tube (11) DM2 (diabetes mellitus, type 2) Status: Chronic Response to Treatment: Stable Problem Text: diet controlled non insulin dependent will monitor finger sticks insulin as needed (12) Dyslipidemia Status: Chronic Response to Treatment: Stable (13) Down's syndrome Status: Chronic Problem Text: * [facility] pt continue with home medications. * at baseline can walk to the bathroom with staff, sits in chair and watches tv , makes some noises but otherwise nonverbal. * has not been getting out of bed for a few days Plan / VTE VTE Prophylaxis Ordered?: Yes Subjective Review of Systems CC/HPI The patient is a 61-year-old male admitted with a reason for visit of Aspiration Pneumonia,Sepsis. General: Reports: ROS Unobtainable Objective Physical Examination General Exam: Positive: No Acute Distress, Negative: Alert, Cooperative Eye Exam: Positive: Conjunctiva & lids normal, PERRLA, Negative: Ptosis, Sclera icteric ENT Exam: Positive: Atraumatic, Mucous membr. moist/pink Neck Exam: Positive: Supple Chest Exam: Positive: Clear to auscultation, Normal air movement, Rhonchi (RUL) , Negative: Diminished, Wheezing Heart Exam: Positive: Normal S2, Rate Normal Telemetry: Positive: No significant arrhythmia Abdomen Exam: Positive: Normal bowel sounds, Soft, Negative: Hepatospenomegaly Extremity Exam: Negative: Clubbing, Edema Psych Exam: Positive: Other (intellectual deficiency ) Vital Signs/I&O Vital Signs Date Time Temp Pulse Resp B/P Pulse Ox O2 Delivery O2 Flow Rate FiO2 06/24/16 06:00 96.7 65 18 125/62 93 Nasal Cannula 1.0 I&O- Last 24 Hours up to 6 AM 06/24/16 06:00 Intake Total 1255 ml Output Total 0 ml Balance 1255 ml Laboratory Data Labs 24H Laboratory Tests 2 06/23/16 11:56: Bedside Glucose (Misc Panel) 143H 06/23/16 17:55: Bedside Glucose (Misc Panel) 176H 06/23/16 23:49: Bedside Glucose (Misc Panel) 161H 06/24/16 05:40: Bedside Glucose (Misc Panel) 145H FSBS Laboratory Tests Test 06/23/16 11:56 06/23/16 17:55 06/23/16 23:49 06/24/16 05:40 Range/Units Bedside Glucose (Misc Panel) 143 176 161 145 80-115 MG/DL Microbiology Microbiology 06/16/16 MRSA Screen - Final, Complete 06/14/16 MRSA Screen - Final, Complete COREY KEY MD Jun 24, 2016 10:39
[2016-06-24] MEDS: PANTOPRAZOLE 40MG INJ (PROTONIX) (C9113) IV SCH ×2 (11:12→22:10)
[2016-06-24 14:00] VITALS: BP 156/69
[2016-06-24 17:32] LABS: ABG BASE EXCESS 4.9 (-2.0-2.0); ABG DEVICE NASAL CANN; ABG HCO3 29.3 MEQ/L (22.0-26.0); ABG PARTIAL PRESSURE CO2 42.7 mmHg (35.0-45.0); ABG PARTIAL PRESSURE O2 69.5 mmHg (75.0-100.0); ABG STANDARD HCO3 28.8 MEQ/L (22.0-26.0); ABG TOTAL CO2 30.6 MEQ/L (23.0-31.0); ABG pH (ARTERIAL) 7.454 UNITS (7.350-7.450)
[2016-06-24 22:00] VITALS: BP 130/56
[2016-06-24] MEDS: ATORVASTATIN 20 MG TAB PO SCH (22:11)
[2016-06-24] MEDS: OLANZapine 5 MG TAB PEG SCH (22:11)
[2016-06-25] MEDS: HumaLOG INSULIN (NovoLOG) PER UNIT SC SCH ×4 (00:29→17:45)
[2016-06-25] MEDS: IPRATROPIUM 0.5MG/ALBUTEROL 2.5MG INH SOL UD 3ML (DUONEB)(J7620) NEB SCH ×4 (02:31→19:38)
[2016-06-25] MEDS: SINEMET 25-100 MG TAB NG SCH ×3 (05:55→18:44)
[2016-06-25 06:00] VITALS: BP 125/57
[2016-06-25] MEDS: SLF 3 ML SYR IV SCH ×3 (06:00→22:00)
[2016-06-25] MEDS: POTASSIUM CHLORIDE 10% LIQ 20 MEQ/15 ML UDC PO SCH (09:58)
[2016-06-25] MEDS: LevoFLOXacin 500 MG in APPROPRIATE DILUENT 1 EA IV SCH (09:58)
[2016-06-25] MEDS: PANTOPRAZOLE 40MG INJ (PROTONIX) (C9113) IV SCH ×2 (09:58→22:04)
[2016-06-25] MEDS: LOMOTIL 2.5MG/0.025MG TABLET PO SCH ×2 (09:59→22:05)
[2016-06-25] MEDS: NYSTATIN 100,000 UNITS/GM TOPICAL PWD 15 GM TOP SCH ×2 (09:59→21:00)
[2016-06-25] MEDS: PARoxetine 20 MG TAB PEG SCH (09:59)
--- NOTE | 2016-06-25 10:31 | IPNPDOC ---
Assessment/Plan Date Seen The patient was seen on 06/25/16. Problems Problems: (1) Aspiration pneumonia Status: Chronic Response to Treatment: Improving Problem Text: Status post 7 day treatment with zosyn and vancomycin and 2 days of levaquin Patient restarted on vancomycin and meropenem as the patient became hypoxic, and repeat imaging showed a worsening pneumonia-s/p completion of additional 7 days of empiric antibiotic therapy We will transition the patient to Levaquin for an additional few days to complete course of antibiotics Currently on 2 L of oxygen via nasal cannula--we will attempt to wean the patient off of this Status post PEG tube placed on 06/07/16---> patient currently on continuous feeds, given the patient's recurrent aspiration pneumonia-would recommend continuing on continuous feeds for now and withholding from bolus feeding as there is an increased risk of aspiration. This can be attempted in another 2-4 weeks after the patient's underlying pneumonia resolves. (2) Leukocytosis Status: Resolved (3) Irritation around percutaneous endoscopic gastrostomy (PEG) tube site Status: Resolved Response to Treatment: Stable Problem Text: Status post PEG tube placement on 06/07 CT was negative for any acute findings Surgery on board, and we will continue tube feeds for now. (4) Occasional tremors Status: Chronic Response to Treatment: Stable Problem Text: EEG report noted to have generalized slowing, but no acute epileptic and a focus noted I did have the chance to discuss the patient's ? Seizure-like activity versus underlying tremors with the patient's nurse over at the [facility] today at the bedside. She states that the patient does have baseline tremors at times which is attributed to his underlying Parkinson's disease. Given the patient's baseline episodic tremors and no acute findings on EEG-we will discontinue the patient's Keppra (5) Acute respiratory failure with hypoxemia Status: Resolved Problem Text: Patient appears to be breathing comfortably on 1 L of oxygen via nasal cannula-we will continue to try to wean the patient off 1 L of continuous oxygen At baseline he uses 2 L of oxygen only at night. ABG noted to be within normal limits from 06/24/2016 (6) Sepsis Status: Resolved Response to Treatment: Stable Problem Text: aspiration pneumonia (7) Diarrhea Status: Resolved Problem Text: c diff negative. (8) Asthma Status: Chronic Response to Treatment: Stable Problem Text: * Nebulizer treatments * Pt is not wheezing currently * continue to monitor (9) BPH (benign prostatic hyperplasia) Status: Chronic Response to Treatment: Stable Problem Text: continue home medications (10) Parkinson's disease Status: Chronic Problem Text: medications per NG tube (11) DM2 (diabetes mellitus, type 2) Status: Chronic Response to Treatment: Stable Problem Text: diet controlled non insulin dependent will monitor finger sticks insulin as needed (12) Dyslipidemia Status: Chronic Response to Treatment: Stable (13) Down's syndrome Status: Chronic Problem Text: * [facility] pt continue with home medications. * at baseline can walk to the bathroom with staff, sits in chair and watches tv , makes some noises but otherwise nonverbal. * has not been getting out of bed for a few days Plan / VTE VTE Prophylaxis Ordered?: Yes Subjective Review of Systems CC/HPI The patient is a 61-year-old male admitted with a reason for visit of Aspiration Pneumonia,Sepsis. General: Reports: ROS Unobtainable Objective Physical Examination General Exam: Positive: No Acute Distress, Negative: Alert, Cooperative Eye Exam: Positive: Conjunctiva & lids normal, PERRLA, Negative: Ptosis, Sclera icteric ENT Exam: Positive: Atraumatic, Mucous membr. moist/pink Neck Exam: Positive: Supple Chest Exam: Positive: Clear to auscultation, Normal air movement, Rhonchi (RUL) , Negative: Diminished, Wheezing Heart Exam: Positive: Normal S2, Rate Normal Telemetry: Positive: No significant arrhythmia Abdomen Exam: Positive: Normal bowel sounds, Soft, Negative: Hepatospenomegaly Extremity Exam: Negative: Clubbing, Edema Psych Exam: Positive: Other (intellectual deficiency ) Vital Signs/I&O Vital Signs Date Time Temp Pulse Resp B/P Pulse Ox O2 Delivery O2 Flow Rate FiO2 06/25/16 06:00 96.8 93 18 125/57 92 Nasal Cannula 1.0 I&O- Last 24 Hours up to 6 AM 06/25/16 06:00 Intake Total 439 ml Balance 439 ml Laboratory Data Labs 24H Laboratory Tests 2 06/24/16 11:46: Bedside Glucose (Misc Panel) 166H 06/24/16 16:54: Bedside Glucose (Misc Panel) 157H 06/24/16 17:08: Arterial Blood pH 7.454H, Arterial Blood Partial Pressure CO2 42.7, Arterial Blood Partial Pressure O2 69.5L, Arterial Blood Total CO2 30.6, Arterial Blood HCO3 29.3H, Arterial Blood Base Excess 4.9H, Arterial Blood Oxygen Saturation 93.8L, Arterial Blood Gas Liter Flow 1, Blood Gas Bicarbonate Standard 28.8H, Oxygen Delivery Device NASAL CAMILO 06/25/16 00:06: Bedside Glucose (Misc Panel) 157H 06/25/16 05:38: Bedside Glucose (Misc Panel) 144H FSBS Laboratory Tests Test 06/24/16 11:46 06/24/16 16:54 06/25/16 00:06 06/25/16 05:38 Range/Units Bedside Glucose (Misc Panel) 166 157 157 144 80-115 MG/DL Microbiology Microbiology 06/16/16 MRSA Screen - Final, Complete COREY KEY MD Jun 25, 2016 10:31
[2016-06-25 22:00] VITALS: BP 133/66
[2016-06-25] MEDS: ATORVASTATIN 20 MG TAB PO SCH (22:05)
[2016-06-25] MEDS: OLANZapine 5 MG TAB PEG SCH (22:05)
[2016-06-25] MEDS: ACETAMINOPHEN TAB 650MG DOSE (2X325MG) PO PRN (23:45)
[2016-06-26] MEDS: HumaLOG INSULIN (NovoLOG) PER UNIT SC SCH ×3 (00:47→11:55)
[2016-06-26] MEDS: IPRATROPIUM 0.5MG/ALBUTEROL 2.5MG INH SOL UD 3ML (DUONEB)(J7620) NEB SCH ×3 (02:04→13:16)
[2016-06-26] MEDS: SINEMET 25-100 MG TAB NG SCH (05:46)
[2016-06-26] MEDS: SLF 3 ML SYR IV SCH ×2 (05:53→11:55)
[2016-06-26 06:00] VITALS: BP 123/52
[2016-06-26] MEDS: POTASSIUM CHLORIDE 10% LIQ 20 MEQ/15 ML UDC PO SCH (08:28)
[2016-06-26] MEDS: LevoFLOXacin 500 MG in APPROPRIATE DILUENT 1 EA IV SCH (08:28)
[2016-06-26] MEDS: LOMOTIL 2.5MG/0.025MG TABLET PO SCH (08:28)
[2016-06-26] MEDS: PANTOPRAZOLE 40MG INJ (PROTONIX) (C9113) IV SCH (08:28)
[2016-06-26] MEDS: PARoxetine 20 MG TAB PEG SCH (08:28)
[2016-06-26] MEDS: NYSTATIN 100,000 UNITS/GM TOPICAL PWD 15 GM TOP SCH (08:29)
--- NOTE | 2016-06-26 12:33 | IPNPDOC ---
Assessment/Plan Date Seen The patient was seen on 06/26/16. Problems Problems: (1) Aspiration pneumonia Status: Chronic Response to Treatment: Improving Problem Text: Status post 7 day treatment with zosyn and vancomycin and 2 days of levaquin Patient restarted on vancomycin and meropenem as the patient became hypoxic, and repeat imaging showed a worsening pneumonia-s/p completion of additional 7 days of empiric antibiotic therapy Transitioned the patient to Levaquin for an additional few days to complete course of antibiotics Currently on room air and saturating 93% Status post PEG tube placed on 06/07/16---> patient currently on continuous feeds, given the patient's recurrent aspiration pneumonia-would recommend continuing on continuous feeds for now and withholding from bolus feeding as there is an increased risk of aspiration. This can be attempted in another 2-4 weeks after the patient's underlying pneumonia resolves. (2) Leukocytosis Status: Resolved (3) Irritation around percutaneous endoscopic gastrostomy (PEG) tube site Status: Resolved Response to Treatment: Stable Problem Text: Status post PEG tube placement on 06/07 CT was negative for any acute findings Surgery on board, and we will continue tube feeds for now. (4) Occasional tremors Status: Chronic Response to Treatment: Stable Problem Text: EEG report noted to have generalized slowing, but no acute epileptic and a focus noted I did have the chance to discuss the patient's ? Seizure-like activity versus underlying tremors with the patient's nurse over at the [facility] today at the bedside. She states that the patient does have baseline tremors at times which is attributed to his underlying Parkinson's disease. Given the patient's baseline episodic tremors and no acute findings on EEG-we will discontinue the patient's Keppra (5) Acute respiratory failure with hypoxemia Status: Resolved Problem Text: Patient appears to be breathing comfortably on 1 L of oxygen via nasal cannula-we will continue to try to wean the patient off 1 L of continuous oxygen At baseline he uses 2 L of oxygen only at night. ABG noted to be within normal limits from 06/24/2016 (6) Sepsis Status: Resolved Response to Treatment: Stable Problem Text: aspiration pneumonia (7) Diarrhea Status: Resolved Problem Text: c diff negative. (8) Asthma Status: Chronic Response to Treatment: Stable Problem Text: * Nebulizer treatments * Pt is not wheezing currently * continue to monitor (9) BPH (benign prostatic hyperplasia) Status: Chronic Response to Treatment: Stable Problem Text: continue home medications (10) Parkinson's disease Status: Chronic Problem Text: medications per NG tube (11) DM2 (diabetes mellitus, type 2) Status: Chronic Response to Treatment: Stable Problem Text: diet controlled non insulin dependent will monitor finger sticks insulin as needed (12) Dyslipidemia Status: Chronic Response to Treatment: Stable (13) Down's syndrome Status: Chronic Problem Text: * [facility] pt continue with home medications. * at baseline can walk to the bathroom with staff, sits in chair and watches tv , makes some noises but otherwise nonverbal. * has not been getting out of bed for a few days Plan / VTE VTE Prophylaxis Ordered?: Yes Subjective Review of Systems CC/HPI The patient is a 61-year-old male admitted with a reason for visit of Aspiration Pneumonia,Sepsis. General: Reports: ROS Unobtainable Objective Physical Examination General Exam: Positive: No Acute Distress, Negative: Alert, Cooperative Eye Exam: Positive: Conjunctiva & lids normal, PERRLA, Negative: Ptosis, Sclera icteric ENT Exam: Positive: Atraumatic, Mucous membr. moist/pink Neck Exam: Positive: Supple Chest Exam: Positive: Clear to auscultation, Normal air movement, Rhonchi (RUL) , Negative: Diminished, Wheezing Heart Exam: Positive: Normal S2, Rate Normal Telemetry: Positive: No significant arrhythmia Abdomen Exam: Positive: Normal bowel sounds, Soft, Negative: Hepatospenomegaly Extremity Exam: Negative: Clubbing, Edema Psych Exam: Positive: Other (intellectual deficiency ) Vital Signs/I&O Vital Signs Date Time Temp Pulse Resp B/P Pulse Ox O2 Delivery O2 Flow Rate FiO2 06/26/16 12:26 94 Room Air 06/26/16 06:00 97.1 89 17 123/52 06/25/16 22:00 1.0 I&O- Last 24 Hours up to 6 AM 06/26/16 06:00 Intake Total 975 ml Balance 975 ml Laboratory Data Labs 24H Laboratory Tests 2 06/25/16 16:57: Bedside Glucose (Misc Panel) 148H 06/26/16 00:17: Bedside Glucose (Misc Panel) 180H 06/26/16 05:40: Bedside Glucose (Misc Panel) 182H 06/26/16 11:33: Bedside Glucose (Misc Panel) 140H FSBS Laboratory Tests Test 06/25/16 16:57 06/26/16 00:17 06/26/16 05:40 06/26/16 11:33 Range/Units Bedside Glucose (Misc Panel) 148 180 182 140 80-115 MG/DL Microbiology Microbiology 06/16/16 MRSA Screen - Final, Complete COREY KEY MD Jun 26, 2016 12:33
[2016-06-26 14:00] VITALS: BP 117/56
--- NOTE | 2016-06-26 16:21 | DS.PDOC ---
Discharge Summary General Date of Admission Jun 04, 2016 at 12:28 Date of Discharge 06/26/16 Specialist/Consultants Involve Dr. Paige of surgery, Dr. Snyder of pulmonary Discharge Summary PROCEDURES PERFORMED DURING STAY: Status post PEG tube placement COMPLICATIONS/CHIEF COMPLAINT: Aspiration Pneumonia,Sepsis ADMISSION DIAGNOSES: 1. . Aspiration pneumonia 2. . Sepsis 3. . Leukocytosis DISCHARGE DIAGNOSES: 1. . Aspiration pneumonia 2. . Status post PEG tube placement 3. . HISTORY OF PRESENT ILLNESS: 61-year-old male with past medical history of Down's syndrome, asthma, BPH, non- insulin-dependent diabetes mellitus, dyslipidemia, Parkinson's disease, recurrent admissions for aspiration pneumonia, and chronic hypoxia requiring 2 L of oxygen via nasal cannula at night presented to [facility] on 06/04/2016 from the [facility] facility with a chief complaint of dyspnea, diarrhea, and fevers. The patient was apparently found hypoxic with an oxygen saturation of 80% on pulse oximetry. In the ER, the patient was found to have bilateral multifocal infiltrates suggestive of multifocal pneumonia. The patient was admitted to the hospitalist service with a diagnosis of aspiration pneumonia. During the patient's stay here in the hospital, surgery was consulted about placement of a PEG tube given the patient's recurrent aspiration pneumonia. Patient had a PEG tube placed by Dr. Paige of surgery on 06/07/2016. The patient was treated with IV vancomycin and Zosyn for his aspiration pneumonia and was steadily improving. His hospital course was complicated on 06/14/2016 after the patient had an acute worsening alteration in mental status and became hypoxic with a oxygen saturation of 80%. Patient was evaluated by Dr. Snyder of pulmonary and started on CPAP therapy. There was a question of whether the patient was possibly having underlying seizures as he was tremulous during his alteration in mental status. He was started on Keppra, however an EEG did not reveal any acute findings of epileptiform activity. He has since been discontinued on his Keppra, and has been without any acute events. As per his [employer] from the [facility] facility, he does have tremors at baseline at times due to his Parkinson's disease. The patient's mental status improved over the ensuing week and he has since completed a 7 day trial of vancomycin and meropenem. During this time, the patient has been weaned off of his supplemental oxygen requirement, and is currently between 93% on room air. Currently, the patient has returned back to his normal baseline mentation and status as per + personnel who have followed with him at [facility]. There has been no recorded fevers, and he has been hemodynamically stable. The patient will be transferred back to [facility] on continuous tube feeds via the PEG tube. DISCHARGE MEDICATIONS: Please see below. ALLERGIES: Please see below. PHYSICAL EXAMINATION ON DISCHARGE: VITAL SIGNS: Please see below. General Exam: Positive: No Acute Distress, Negative: Alert, Cooperative Eye Exam: Positive: Conjunctiva & lids normal, ENT Exam: Positive: Atraumatic, Mucous membr. moist/pink Neck Exam: Positive: Supple Chest Exam: Positive: Clear to auscultation, Normal air movement, Rhonchi (RUL) , Negative: Diminished, Wheezing Heart Exam: Positive: Normal S2, Rate Normal Telemetry: Positive: No significant arrhythmia Abdomen Exam: Positive: Normal bowel sounds, Soft, +PEG Tube Negative: Hepatospenomegaly Extremity Exam: Negative: Clubbing, Edema Psych Exam: Positive: Other (intellectual deficiency ) LABORATORY DATA: Please see below. IMAGING: Clinical: Sepsis. Comparison: 05/19/2016. Findings: Multi focal alveolar infiltrates and areas of consolidation with air bronchograms involve the bilateral upper lobes, lower lobes, and right middle lobe which are increased when compared to prior examination. No pleural effusion. No pneumothorax. Subcentimeter reactive adenopathy to the mediastinum is suggested. Stable cardiomegaly. Surrounding musculoskeletal structures demonstrate age-related changes without focal osseous abnormality. Impression: 1. Bilateral multifocal infiltrates increased from prior examination. Differential diagnosis includes multifocal pneumonia and pulmonary edema. No effusion. Subcentimeter reactive lymph nodes without significant adenopathy. 2. Stable chronic cardiomegaly with minimal epicardial fluid. VTE Prophylaxis ordered?: Yes DISCHARGE CONDITION: Medically stable DISPOSITION: Transferred to [facility] ACTIVITY: As tolerated DIET: Continuous feeds via PEG tube ITEMS TO FOLLOWUP ON OUTPATIENT: 1. . Follow-up with primary care physician within one to 2 weeks TIME SPENT ON DISCHARGE: Greater than 30 minutes. Vital Signs/I&Os Vital Signs Date Time Temp Pulse Resp B/P Pulse Ox O2 Delivery O2 Flow Rate FiO2 06/26/16 14:00 97.7 79 14 117/56 93 Room Air 06/25/16 22:00 1.0 I&O- Last 24 Hours up to 6 AM 06/26/16 06:00 Intake Total 975 ml Balance 975 ml Laboratory Data Labs 24H Laboratory Tests 2 06/25/16 16:57: Bedside Glucose (Misc Panel) 148H 06/26/16 00:17: Bedside Glucose (Misc Panel) 180H 06/26/16 05:40: Bedside Glucose (Misc Panel) 182H 06/26/16 11:33: Bedside Glucose (Misc Panel) 140H FSBS Laboratory Tests Test 06/25/16 16:57 06/26/16 00:17 06/26/16 05:40 06/26/16 11:33 Range/Units Bedside Glucose (Misc Panel) 148 180 182 140 80-115 MG/DL Microbiology Microbiology 06/16/16 MRSA Screen - Final, Complete Medications Scheduled Albuterol Sulfate (Albuterol Sulfate) 2.5 Mg/3 Ml Nebu 2.5 MG INH QID 0600,1200,1600,1900 Atorvastatin Calcium (Atorvastatin Calcium) 40 Mg Tab 40 MG PO QHS Carbidopa/Levodopa (Sinemet 25-100 mg) 1 Tab Tab 1 TAB PO TID 0600,1600,1900 Olanzapine (Zyprexa) 5 Mg Tab 5 MG PO QHS Paroxetine Hydrochloride (Paxil) 20 Mg Tab 20 MG PO DAILY Polyethylene Glycol (Miralax) 1 Pow Pow 17 GM PO DAILY Tamsulosin Hydrochloride (Flomax) 0.4 Mg Cap 0.4 MG PO QPM Scheduled PRN Docusate Sod/Senna (Senna S 8.6-50 mg) 1 Tab Tab 1 TAB PO QHS PRN PRN CONSTIPATION ON DAY 3 OF NO BM Allergies Coded Allergies: Metformin (Verified Adverse Reaction, Mild, DIARHEA, 09/13/12) COREY KEY MD Jun 26, 2016 16:21
== END 2016-06-26 17:00 | disposition home or self-care (01) | DRG 871 ==
LOC: M ED 09:22 → M ED INP 12:28 → M ICU 14:32 → M MS5PR 06-07 15:08 → M ICU 06-14 13:27 → M MSPAV 06-16 17:59
PROVIDERS: ADMIT Hospitalist; ATTEND Internal Medicine
PROC: 0DH68UZ Insertion of Feeding Device into Stomach, Via Natural or Artificial Opening Endoscopic (ICD-10-PCS; principal; 2016-06-07 13:00)
DX: A41.9 Sepsis, unspecified organism (principal); J96.01 Acute respiratory failure with hypoxia; J69.0 Pneumonitis due to inhalation of food and vomit; G93.41 Metabolic encephalopathy; K91.870 Postprocedural hematoma of a digestive system organ or structure following a digestive system procedure; Q90.9 Down syndrome, unspecified; N40.0 Benign prostatic hyperplasia without lower urinary tract symptoms; E11.9 Type 2 diabetes mellitus without complications; E87.70 Fluid overload, unspecified; F79 Unspecified intellectual disabilities; E78.5 Hyperlipidemia, unspecified; G20 Parkinson's disease; R19.7 Diarrhea, unspecified; K43.9 Ventral hernia without obstruction or gangrene; Z79.899 Other long term (current) drug therapy

== ENCOUNTER 2016-07-05 11:23 | Emergency (ER) | payer MEDICARE, MEDICAID ==
[~2016-07-05 11:23] MED LIST changes: +SENN8.6T7 PO
[2016-07-05 12:31] LABS: BASO # 0.1 K/mm3 (0.0-0.2); BASO % 1.1 % (0.0-1.0); EOS % 0.6 % (0.0-3.0); LARGE UNSTAINED CELL # 0.1 K/mm3 (0.0-0.4); LARGE UNSTAINED CELL % 1.3 % (0.0-4.0); LYMPH # 1.4 K/mm3 (1.5-4.5); LYMPH % 19.4 % (24.0-44.0); MEAN CORPUSCULAR HEMOGLOBIN 30.6 pg (27.0-33.0); MEAN CORPUSCULAR HGB CONC 33.3 g/dl (32.0-36.5); MEAN CORPUSCULAR VOLUME 91.7 fl (80.0-96.0); MONO # 0.3 K/mm3 (0.0-0.8); MONO % 4.4 % (0.0-5.0); NEUTROPHILS # 5.1 K/mm3 (1.8-7.7); NEUTROPHILS % 73.2 % (36.0-66.0); PLATELET COUNT, AUTOMATED 181 k/mm3 (150-450); RED CELL DISTRIBUTION WIDTH 16.5 % (11.5-14.5)
[2016-07-05 12:35] LABS: ANION GAP 6 MEQ/L (8-16); BLOOD UREA NITROGEN 28 MG/DL (7-18); CALCIUM LEVEL 8.7 MG/DL (8.8-10.2); CARBON DIOXIDE LEVEL 27 MEQ/L (21-32); CHLORIDE LEVEL 117 MEQ/L (98-107); CREATININE FOR GFR 1.06 MG/DL (0.70-1.30); GLOMERULAR FILTRATION RATE > 60.0 (>49); GLUCOSE, FASTING 179 MG/DL (80-110); POTASSIUM SERUM 3.7 MEQ/L (3.5-5.1); SODIUM LEVEL 150 MEQ/L (136-145)
--- NOTE | 2016-07-05 12:35 | REP ---
CHEST, ONE VIEW: HISTORY: Cough. COMPARISON: 06/14/2016. Diffuse interstitial markings are present that are decreased compared to the previous study. The cardiac silhouette is enlarged. The pulmonary vasculature is prominent. IMPRESSION: Findings consistent with congestive heart failure that are decreased compared to the previous study. Signed by Adam Hicks MD 07/05/2016 12:39 P
[2016-07-05 12:47] LABS: ALBUMIN 2.8 GM/DL (3.2-5.2); ALBUMIN/GLOBULIN RATIO 0.49 (1.00-1.93); ALKALINE PHOSPHATASE 65 U/L (45-117); ALT/SGPT 17 U/L (12-78); AST/SGOT 12 U/L (15-37); BILIRUBIN,DIRECT 0.2 MG/DL (0.0-0.2); BILIRUBIN,TOTAL 0.5 MG/DL (0.2-1.0); TOTAL PROTEIN 8.5 GM/DL (6.4-8.2)
[2016-07-05] MEDS ORDERED: GASTROGRAFIN SOLUTION 30ML (Q9963) As Ordered ONE (12:50)
[2016-07-05] MEDS ORDERED: ISOVUE-370 76% 100ML VIAL (Q9967) As Ordered ONE (14:29)
--- NOTE | 2016-07-05 16:47 | REP ---
CT study of the abdomen and pelvis with IV and oral contrast: History: Generalized abdominal pain. Comparison head CT study is from June 14, 2016. CT contrast dose: 100 ml of Isovue-[address] findings: Preliminary care technician radiograph shows a feeding percutaneous tube in the left upper quadrant. Air-filled small bowel loops are scattered in the abdomen. Lung window settings demonstrate improvement in the lower lobe infiltrates in the interval since the June 14, 2016 study. There is still some patchy consolidation in the lower lobes, but this is much improved. No pleural effusion is seen today. A very small amount of pericardial fluid is seen. A left upper quadrant feeding jejunostomy tube is noted. The liver and the spleen are normal in size and homogeneous in texture. Gallbladder and pancreas are unremarkable. No adrenal lesion is seen. The kidneys enhance symmetrically and are morphologically intact. No obstructive lesion is seen in the GI tract. There is a left inguinal hernia containing a knuckle of unobstructed sigmoid colon. There is fatty infiltration of the spermatic cords bilaterally. Urinary bladder is intact. Prostate contains one or two dystrophic calcifications. The appendix is not directly visualized, but there is no CT evidence to suggest appendicitis. Impression: 1. Significant improvement in the previously noted bilateral lower lobe pneumonia. 2. Feeding tube in the left upper quadrant. 3. No acute intra-abdominal abnormality. Left inguinal hernia contains a knuckle of unobstructed sigmoid colon. Signed by Linden Laird MD 07/05/2016 06:38 P
--- NOTE | 2016-07-07 18:36 | EDDOCDS ---
Physician Documentation [facility] Name: Baldemar Jones Age: 61 yrs Sex: Male : 1955 Arrival Date: 07/05/2016 Time: 11:23 Bed 6 Private MD: Gerri High Disposition: 07/05 17:05 Critical Care: Critical care not applicable. le Disposition: 07/05/16 17:02 Discharged to Home/Self Care. Impression: Fever of other and unknown origin, Unspecified bacterial pneumonia - improving. - Condition is Stable. - Discharge Instructions: Fever, Adult, Pneumonia, Adult. - Medication Reconciliation, Local Pharmacy Hours form. - Follow up: Gerri High; When: Call to arrange an appointment; Reason: Recheck today's complaints, Continuance of care. - Problem is new. - Symptoms have improved. - Notes: Continue to hydrate Use Tylenol and Ibuprofen, as needed, for fever >101.5 Return to the ED for any further concerns Historical: - Allergies: no known allergies; - Home Meds: 1. albuterol sulfate 2.5 mg /3 mL (0.083 %) Inhl nebu 3 mL 4 times per day 2. atorvastatin 40 mg oral tab 1 tab once daily 3. Depakene 250 mg Oral cap twice a day 4. Diabetic Tussin DM 10-100 mg/5 mL oral syrp every 6 hours 5. Flomax 0.4 mg Oral cp24 1 cap once daily 6. Lipitor 40 mg Oral tab once daily 7. Miralax 17 gram/dose Oral powd once daily 8. oxygen 2 liters NC nightly 9. paroxetine HCl 20 mg Oral tab once daily 10. Senna-S 8.6-50 mg oral tab prn 11. Sinemet 25-100 mg Oral tab 1 tab 3 times per day 12. Tylenol 325 mg Oral tab 2 tabs every 6 hours 13. Zyprexa 5 mg Oral tab 1 tab once daily - PMHx: Asthma; BPH; Diabetes - NIDDM: controlled; Down's Syndrome; Hypercholesterolemia; Parkinson's Disease; - PSHx: J-tube placement; Abdominal surgery; - Social history: Smoking status: Patient states was never smoker of tobacco. No barriers to communication noted, The patient speaks fluent Greenlandic, Speaks appropriately for age. - Family history: Not pertinent. - : The pt / caregiver states he / she is not on anticoagulants. Home medication list is obtained from [employer] import data. - Exposure Risk Screening:: None identified. Vital Signs: 11:49 BP 107 / 62; Pulse 93; Resp 18; Temp 99.3(O); Pulse Ox 98% on R/A; Height 5 ft. 4 in. kc3 (162.56 cm); 14:46 BP 119 / 63; Pulse 96; Resp 18; Temp 99.5(TE); Pulse Ox 98% on R/A; kc3 17:25 BP 117 / 65; Pulse 89; Resp 18; Temp 98.6(TE); Pulse Ox 62% on R/A; kc3 MDM: 11:39 -Blood Culture (Adults Only), peripheral from different site, or from device/port/PICC fg etc. if present ordered. 11:39 IV Saline Lock ordered. fg 11:40 CBC with Diff Ordered. EDMS 11:40 Basic Metabolic Profile Ordered. EDMS 11:40 Urinalysis Ordered. EDMS 11:40 -Blood Culture Ordered. EDMS 11:40 Urine Culture Ordered. EDMS 11:42 Chest, 1 View Ordered. EDMS 11:42 ECG WITH READING ER PHYS+CARDIAG ordered. EDMS 11:46 -Blood Culture (Adults Only), peripheral from different site, or from device/port/PICC kpj etc. if present complete. 11:47 BLOOD CULTURES Ordered. EDMS 12:27 Straight cath ordered. le 12:28 Misc. Nursing Order ordered. le 12:29 CT ABD & PELVIS: IV and Oral Contrast Ordered. EDMS 12:29 Lactic Acid ([place] tube on ice) Ordered. EDMS 12:31 Financial registration complete. [id number] 12:36 [facility] Payment Agreement was scanned into [employer] and attached to record. mm15 12:38 LIPASE Ordered. EDMS 12:38 LIVER PROFILE Ordered. EDMS 12:52 BED REQUEST+ADM ordered. EDMS 13:14 Diatrizoate Meglumine & Sodium Liquid 10 ml PO once; mix in 290cc of water ordered. kc3 13:14 Diatrizoate Meglumine & Sodium Liquid 10 ml PO once; mix in 290cc of water ordered. kc3 13:56 CBC with Diff Reviewed. le 13:56 Basic Metabolic Profile Reviewed. le 13:56 LIVER PROFILE Reviewed. le 13:56 LIPASE Reviewed. le 13:56 Chest, 1 View Reviewed. le 15:07 NS 0.9% 500 ml IV at bolus once ordered. le 07/06 11:21 T-Sheet-- Draft Copy was scanned into [employer] and attached to record. gb Administered Medications: 07/05 13:00 Drug: Diatrizoate Meglumine & Sodium 10 ml [diatrizoate meglumine and diat.sodium 66 kc3 %-10 % oral solution (10 mL)] Route: G-Tube; 13:30 Drug: Diatrizoate Meglumine & Sodium 10 ml [diatrizoate meglumine and diat.sodium 66 kc3 %-10 % oral solution (10 mL)] Route: G-Tube; 15:35 Drug: NS 0.9% 500 ml [sodium chloride 0.9 % intravenous solution] Route: IV; Rate: kc3 bolus; Site: left forearm; Signatures: Dispatcher [employer] EDMS Heather Summers RN RN kpj Barbie Bucio, Reg Reg Jolene Isaac, WEED SCIENCE RESEARCH TECHNICIAN WEED SCIENCE RESEARCH TECHNICIAN Alexandria Michele [id number] Yasmine Morris MD MD fg Crane, Kelsi,RN RN kc3 The chart was reviewed and I authenticate all verbal orders and agree with the evaluation and treatment provided.Corrections: (The following items were deleted from the chart) 12:37 12:28 LIVER PROFILE+LAB ordered. EDMS EDMS 12:37 12:28 LIPASE+LAB ordered. EDMS EDMS Attachments: 12:36 [facility] [place] [facility] [place] [email or web address] 07/06 11:21 T-Sheet-- Draft Copy gb Chart Complete MTDD
--- NOTE | 2016-07-07 18:36 | EDDOCDS ---
Nurse's Notes [facility] Name: Baldemar Jones Age: 61 yrs Sex: Male : 1955 Arrival Date: 07/05/2016 Time: 11:23 Bed 6 Private MD: Gerri High Diagnosis: Fever of other and unknown origin;Unspecified bacterial pneumonia-improving Presentation: 07/05 11:26 Presenting complaint: EMS states: J tube placed a week ago. Infected J tube, fever, ck1 chills, drainage from site. Adult Sepsis Screening: The patient does not have new or worsening altered mentation. Patient's respiratory rate is less than 22. Systolic blood pressure is greater than 100. Patient has a qSOFA score of 0- Negative Sepsis Screen. Suicide/Homicide risk assessment- the patient denies having any suicidal and/or homicidal ideations and does not present with any other emotional, behavioral or mental health complaints. Status: Patient is not a body service team member or dependent. Transition of care: patient was received from [facility]. 11:26 Acuity: TANESHA Level 3 ck1 11:26 Method Of Arrival: Ambulance ck1 Triage Assessment: 11:46 General: Appears in no apparent distress, comfortable, Behavior is cooperative. Pain: kc3 Unable to use pain scale. Does not appear to understand pain scale. Caregiver reports pt noted to guard abdomen when standing. HIV screening NA for this visit Offered previously. The patient is triaged at the bedside. See Assessment in Nurses Notes section of ED record. Neurological: Level of Consciousness is awake, Oriented to Pt non-verbal . Respiratory: Airway is patent Respiratory effort is even, unlabored. GI: Abdomen is flat, Bowel sounds present X 4 quads. Abd is soft X 4 quads Parent/caregiver reports the patient having guarding to abd. G-tube present to left upper quadrant with dressing in place. Derm: Skin is pink, warm & dry. Musculoskeletal: Circulation, motion, and sensation intact. Historical: - Allergies: no known allergies; - Home Meds: 1. albuterol sulfate 2.5 mg /3 mL (0.083 %) Inhl nebu 3 mL 4 times per day 2. atorvastatin 40 mg oral tab 1 tab once daily 3. Depakene 250 mg Oral cap twice a day 4. Diabetic Tussin DM 10-100 mg/5 mL oral syrp every 6 hours 5. Flomax 0.4 mg Oral cp24 1 cap once daily 6. Lipitor 40 mg Oral tab once daily 7. Miralax 17 gram/dose Oral powd once daily 8. oxygen 2 liters NC nightly 9. paroxetine HCl 20 mg Oral tab once daily 10. Senna-S 8.6-50 mg oral tab prn 11. Sinemet 25-100 mg Oral tab 1 tab 3 times per day 12. Tylenol 325 mg Oral tab 2 tabs every 6 hours 13. Zyprexa 5 mg Oral tab 1 tab once daily - PMHx: Asthma; BPH; Diabetes - NIDDM: controlled; Down's Syndrome; Hypercholesterolemia; Parkinson's Disease; - PSHx: J-tube placement; Abdominal surgery; - Social history: Smoking status: Patient states was never smoker of tobacco. No barriers to communication noted, The patient speaks fluent Telugu, Speaks appropriately for age. - Family history: Not pertinent. - : The pt / caregiver states he / she is not on anticoagulants. Home medication list is obtained from [employer] import data. - Exposure Risk Screening:: None identified. Screenin:51 Screening information is obtained from the caregiver. Fall risk: No risks identified. kc3 Assistance ADL's: Requires assistance with meal preparation, this assistance is provided by residence staff, bathing, assistance is provided by residence staff, dressing, assistance is provided by residence staff, toileting, assistance is provided by residence staff, ambulation, assistance is provided by residence staff, housework, assistance is provided by residence staff, medication administration, assistance is provided by residence staff. Abuse/DV Screen: The patient / caregiver reports he/she is: pt cannot be assessed for living situation at this time. Nutritional screening: g-tube feedings continuous. Advance Directives: Currently, there is no health care proxy. home support is adequate. Assessment: 11:41 General: This write in room to assess patients vital signs. Caregiver at bedside ck1 informed need for oral temperature to assess for fever. Caregiver replied "that is not going to work, he will not keep his mouth closed, they usually to one in his ear". Caregiver informed that tympanic is not the most accurate method and oral temperature would be preferred. Caregiver then stated that we would have to do rectal temperature, refusing any attempt to do an oral temp first. I clarified with this caregiver that we would not even be able to attempt and oral temperature, caregiver then ordered this show card writer out of the room. This further delaying the triage of the patient. [employer] [facility] where patient resides was contacted. Spoke with Kaelyn Kennedy . 11:49 General: Also spoke with Belinda Bosch [phone]. ck1 12:40 General: Appears in no apparent distress, comfortable, Behavior is cooperative. Pain: kc3 Unable to use pain scale. Does not appear to understand pain scale. Neurological: Level of Consciousness is awake, alert. Respiratory: Respiratory effort is even, unlabored. GI: Abdomen is flat, Enteral feeding tube in place, clamped. Site clean. Derm: Skin is pink, warm & dry. 13:57 General: Appears in no apparent distress, comfortable, Behavior is cooperative, kc3 Caregiver at bedside. . Pain: Unable to use pain scale. Does not appear to understand pain scale. Neurological: Level of Consciousness is awake, alert. Respiratory: Respiratory effort is even, unlabored, Respiratory pattern is regular, symmetrical. Derm: Skin is pink, warm & dry. 14:30 General: This RN spoke with pt's guardian, Urban Osborne, who consented verbally over kc3 the phone for pt to have CT with IV and oral contrast. . 15:37 General: Appears in no apparent distress, comfortable, Behavior is cooperative, kc3 Caregiver at bedside. . Neurological: Level of Consciousness is awake, alert. Respiratory: Respiratory effort is even, unlabored, Respiratory pattern is regular, symmetrical. Derm: Skin is pink, warm & dry. Musculoskeletal: Circulation, motion, and sensation intact. 16:40 General: Appears in no apparent distress, comfortable, Behavior is appropriate for age, kc3 cooperative. Pain: Unable to use pain scale. Does not appear to understand pain scale. Neurological: Level of Consciousness is awake, alert. Respiratory: Respiratory effort is even, unlabored, Respiratory pattern is regular, symmetrical. Derm: Skin is pink, warm & dry. 17:24 General: Appears in no apparent distress, comfortable, Behavior is cooperative, kc3 Caregivers at bedside. . Neurological: Level of Consciousness is awake, alert. Respiratory: Respiratory effort is even, unlabored. Derm: Skin is pink, warm & dry. Vital Signs: 11:49 BP 107 / 62; Pulse 93; Resp 18; Temp 99.3(O); Pulse Ox 98% on R/A; Height 5 ft. 4 in. kc3 (162.56 cm); 14:46 BP 119 / 63; Pulse 96; Resp 18; Temp 99.5(TE); Pulse Ox 98% on R/A; kc3 17:25 BP 117 / 65; Pulse 89; Resp 18; Temp 98.6(TE); Pulse Ox 62% on R/A; kc3 Vitals: 11:49 Log In Time N/A - ambulance arrival. kc3 ED Course: 11:24 Patient visited by Sergio Pike PCA. jrd 11:24 Gerri High is Private Physician. jrd 11:24 Patient moved to Waiting jrd 11:25 Patient moved to 6 jrd 11:28 Triage Initiated ck1 11:52 The patient / caregiver is instructed regarding the plan of care and ED course. kc3 12:11 Jolene Murillo FNP is PHCP. le 12:12 Patient visited by Disha Nath RN. kc3 12:12 Patient visited by Disha Nath RN. kc3 12:12 BLOOD CULTURES Sent. kc3 12:12 -Blood Culture Sent. kc3 12:12 Basic Metabolic Profile Sent. kc3 12:12 CBC with Diff Sent. kc3 12:12 Inserted saline lock: 20 gauge in left forearm and blood collected. The patient kc3 tolerated the procedure well. Labs drawn. (by ED staff). Sent per order to lab. Labs/Blood culture drawn. 12:21 Patient visited by Jolene Murillo FNP. le 12:21 Patient visited by Jolene Murillo FNP. le 12:36 [facility] Payment Agreement was scanned into [employer] and attached to record. mm15 12:43 Chest, 1 View Returned. EDMS 13:03 Patient visited by Farideh Valenzuela PCA. bnb 13:03 Urinalysis Sent. bnb 13:03 Urine Culture Sent. bnb 13:03 Urine collected. straight cath specimen. Urine specimen sent to lab. bnb 13:07 Disha Nath,RN is Primary Nurse. kc3 13:13 Lactic Acid (Pickering tube on ice) Sent. kc3 13:17 Straight cath inserted 16 Fr. Specimen obtained. returned bandar urine. Patient kc3 tolerated well. 13:19 Patient visited by Disha Nath RN. kc3 13:57 Patient visited by Disha Nath RN. kc3 14:00 Patient visited by Disha Nath RN. kc3 14:34 Patient visited by Disha Nath,GWYN. kc3 15:25 Patient visited by Disha Nath,GWYN. kc3 16:03 Patient visited by Disha Nath RN. kc3 17:02 Gerri High is Referral Physician. le 17:24 Discontinued IV lock intact, bleeding controlled, pressure dressing applied, No kc3 redness/swelling at site. No procedures done that require assistance. 19:11 CT ABD & PELVIS: IV and Oral Contrast Returned. EDMS 07/06 11:21 T-Sheet-- Draft Copy was scanned into [employer] and attached to record. gb 07/07 10:57 Patient name changed from Baldemar\\S\\\\S\\Alvaton\\S\\ to Baldemar\\S\\ \\S\\Robert. EDMS Administered Medications: 07/05 13:00 Drug: Diatrizoate Meglumine & Sodium 10 ml [diatrizoate meglumine and diat.sodium 66 kc3 %-10 % oral solution (10 mL)] Route: G-Tube; 13:30 Drug: Diatrizoate Meglumine & Sodium 10 ml [diatrizoate meglumine and diat.sodium 66 kc3 %-10 % oral solution (10 mL)] Route: G-Tube; 15:35 Drug: NS 0.9% 500 ml [sodium chloride 0.9 % intravenous solution] Route: IV; Rate: kc3 bolus; Site: left forearm; Order Results: Lab Order: CBC with Diff; SPEC'M 07/05/16 12:09 Test: WHITE BLOOD COUNT; Value: 7.0; Range: 4.0-10.0; Units: K/mm3; Status: F Test: RED BLOOD COUNT; Value: 3.92; Range: 4.30-6.10; Abnormal: Below low normal; Units: M/mm3; Status: F Test: HEMOGLOBIN; Value: 12.0; Range: 14.0-18.0; Abnormal: Below low normal; Units: g/dl; Status: F Test: HEMATOCRIT; Value: 35.9; Range: 42.0-52.0; Abnormal: Below low normal; Units: %; Status: F Test: MEAN CORPUSCULAR VOLUME; Value: 91.7; Range: 80.0-96.0; Units: fl; Status: F Test: MEAN CORPUSCULAR HEMOGLOBIN; Value: 30.6; Range: 27.0-33.0; Units: pg; Status: F Test: MEAN CORPUSCULAR HGB CONC; Value: 33.3; Range: 32.0-36.5; Units: g/dl; Status: F Test: RED CELL DISTRIBUTION WIDTH; Value: 16.5; Range: 11.5-14.5; Abnormal: Above high normal; Units: %; Status: F Test: PLATELET COUNT, AUTOMATED; Value: 181; Range: 150-450; Units: k/mm3; Status: F Test: NEUTROPHILS %; Value: 73.2; Range: 36.0-66.0; Abnormal: Above high normal; Units: %; Status: F Test: LYMPH %; Value: 19.4; Range: 24.0-44.0; Abnormal: Below low normal; Units: %; Status: F Test: MONO %; Value: 4.4; Range: 0.0-5.0; Units: %; Status: F Test: EOS %; Value: 0.6; Range: 0.0-3.0; Units: %; Status: F Test: BASO %; Value: 1.1; Range: 0.0-1.0; Abnormal: Above high normal; Units: %; Status: F Test: LARGE UNSTAINED CELL %; Value: 1.3; Range: 0.0-4.0; Units: %; Status: F Test: NEUTROPHILS #; Value: 5.1; Range: 1.8-7.7; Units: K/mm3; Status: F Test: LYMPH #; Value: 1.4; Range: 1.5-4.5; Abnormal: Below low normal; Units: K/mm3; Status: F Test: MONO #; Value: 0.3; Range: 0.0-0.8; Units: K/mm3; Status: F Test: EOS #; Value: 0.0; Range: 0.0-0.50; Units: K/mm3; Status: F Test: BASO #; Value: 0.1; Range: 0.0-0.2; Units: K/mm3; Status: F Test: LARGE UNSTAINED CELL #; Value: 0.1; Range: 0.0-0.4; Units: K/mm3; Status: F Lab Order: Basic Metabolic Profile; SPEC'M 07/05/16 12:09 Test: AST/SGOT; Range: 15-37; Units: U/L; Status: I Test: ALT/SGPT; Range: 12-78; Units: U/L; Status: I Test: ALKALINE PHOSPHATASE; Range: 45-117; Units: U/L; Status: I Test: BILIRUBIN,TOTAL; Range: 0.2-1.0; Units: MG/DL; Status: I Test: BILIRUBIN,DIRECT; Range: 0.0-0.2; Units: MG/DL; Status: I Test: TOTAL PROTEIN; Range: 6.4-8.2; Units: GM/DL; Status: I Test: ALBUMIN; Range: 3.2-5.2; Units: GM/DL; Status: I Test: ALBUMIN/GLOBULIN RATIO; Range: 1.00-1.93; Status: I Test: GLUCOSE, FASTING; Value: 179; Range: 80-110; Abnormal: Above high normal; Units: MG/DL; Status: F Test: BLOOD UREA NITROGEN; Value: 28; Range: 7-18; Abnormal: Above high normal; Units: MG/DL; Status: F Test: CREATININE FOR GFR; Value: 1.06; Range: 0.70-1.30; Units: MG/DL; Status: F Test: GLOMERULAR FILTRATION RATE; Value: > 60.0; Range: >49; Status: F Test: SODIUM LEVEL; Value: 150; Range: 136-145; Abnormal: Above high normal; Units: MEQ/L; Status: F Test: POTASSIUM SERUM; Value: 3.7; Range: 3.5-5.1; Units: MEQ/L; Status: F Test: CHLORIDE LEVEL; Value: 117; Range: 98-107; Abnormal: Above high normal; Units: MEQ/L; Status: F Test: CARBON DIOXIDE LEVEL; Value: 27; Range: 21-32; Units: MEQ/L; Status: F Test: ANION GAP; Value: 6; Range: 8-16; Abnormal: Below low normal; Units: MEQ/L; Status: F Test: CALCIUM LEVEL; Value: 8.7; Range: 8.8-10.2; Abnormal: Below low normal; Units: MG/DL; Status: F Test Note: ; Units are mL/min/1.73 m2 Chronic Kidney Disease Staging per NKF: Stage I & II GFR >=60 Normal to Mildly Decreased Stage III GFR 30-59 Moderately Decreased Stage IV GFR 15-29 Severely Decreased Stage V GFR <15 Very Little GFR Left ESRD GFR <15 on MOTHERCRAFT NURSE Test: LIPASE; Range: 73-393; Units: U/L; Status: I Lab Order: -Blood Culture; SPEC'M 07/05/16 12:09 Test: BLOOD CULTURE; Value: No growth after 24 hours . All specimens observed; Status: F Test: BLOOD CULTURE; Value: for 5 days. Results final at that time.; Status: F Test: BLOOD CULTURE; Value: No Growth after 48 hours. All Specimens observed; Status: F Test: BLOOD CULTURE; Value: for 7 days. Results final at that time.; Status: F Lab Order: Urinalysis; SPEC'M 07/05/16 13:02 Test: APPEARANCE, URINE; Value: HAZY; Range: CLEAR; Status: F Test: COLOR, URINE; Value: YELLOW; Range: YELLOW; Status: F Test: PH,URINE; Value: 5.0; Range: 5.0-9.0; Units: UNITS; Status: F Test: SPECIFIC GRAVITY URINE AUTO; Value: 1.029; Range: 1.002-1.035; Status: F Test: PROTEIN, URINE AUTO; Value: 1+; Range: NEGATIVE; Abnormal: Above high normal; Units: mg/dL; Status: F Test: GLUCOSE, URINE (UA) AUTO; Value: NEGATIVE; Range: NEGATIVE; Units: mg/dL; Status: F Test: KETONE, URINE AUTO; Value: TRACE; Range: NEGATIVE; Abnormal: Above high normal; Units: mg/dL; Status: F Test: UROBILINOGEN, URINE AUTO; Value: 0.2; Range: 0.0-2.0; Units: mg/dL; Status: F Test: BILIRUBIN, URINE AUTO; Value: NEGATIVE; Range: NEGATIVE; Status: F Test: NITRITE, URINE AUTO; Value: NEGATIVE; Range: NEGATIVE; Status: F Test: LEUKOCYTE ESTERASE, URINE AUTO; Value: NEGATIVE; Range: NEGATIVE; Status: F Test: BLOOD, URINE BLOOD; Value: NEGATIVE; Range: NEGATIVE; Status: F Test: WBC, URINE AUTO; Value: 9; Range: 0-3; Abnormal: Above high normal; Units: /HPF; Status: F Test: RBC, URINE AUTO; Value: 3; Range: 0-3; Units: /HPF; Status: F Test: BACTERIA, URINE AUTO; Value: NEGATIVE; Range: NEGATIVE; Status: F Test: SQUAMOUS EPITHELIAL CELL UR AU; Value: 0; Range: 0-6; Units: /HPF; Status: F Test: MUCUS, URINE; Value: SMALL; Range: NEGATIVE; Status: F Test: HYALINE CAST, URINE AUTO; Value: 3; Range: 0-1; Units: /LPF; Status: F Lab Order: Urine Culture; SPEC'M 07/05/16 13:02 Test: URINE CULTURE; Value: <EXTERNAL COMMENT eCWMed> FULL REPORT IN LAB NOTES (eCW and Medent).; Status: F Test: URINE CULTURE; Value: URINE CULTURE RESULT NO GROWTH; Status: F Lab Order: BLOOD CULTURES; SPEC'M 07/05/16 12:09 Test: BLOOD CULTURE; Value: DATE POSITIVE DETECTED 07/06/16; Status: F Test: BLOOD CULTURE; Value: EXTERNAL GS (REQUIRED!!!) GRAM POSITIVE COCCI IN CLUSTERS; Status: F Test: BLOOD CULTURE; Value: GRAM STAIN CALLED BY OSVALDO; Status: F Test: BLOOD CULTURE; Value: GRAM STAIN CALLED TO RB; Status: F Test: BLOOD CULTURE; Value: DATE GRAM STAIN CALLED 07/06/16; Status: F Test: BLOOD CULTURE; Value: TIME GRAM STAIN CALLED 0631; Status: F Test: BLOOD CULTURE; Value: ORGANISM 1: STAPH.AUREUS METHICILLIN RESIS; Status: F Test: BLOOD CULTURE; Value: STAPH.AUREUS METHICILLIN RESIS; Status: F Test: BLOOD CULTURE; Value: GRAM POS SENSI - VITEK 67; Status: F Test: BLOOD CULTURE; Value: Method: VIT2; Status: F Test: BLOOD CULTURE; Value: TETRACYCLINE <=1 S; Status: F Test: BLOOD CULTURE; Value: PENICILLIN G >=0.5 R; Status: F Test: BLOOD CULTURE; Value: TRIMETHOPRIM/SULFAMETHOXAZOLE <=10 S; Status: F Test: BLOOD CULTURE; Value: ERYTHROMYCIN >=8 R; Status: F Test: BLOOD CULTURE; Value: GENTAMICIN <=0.5 S; Status: F Test: BLOOD CULTURE; Value: CLINDAMYCIN <=0.25 R; Status: F Test: BLOOD CULTURE; Value: OXACILLIN >=4 R; Status: F Test: BLOOD CULTURE; Value: VANCOMYCIN 1 S; Status: F Test: BLOOD CULTURE; Value: LINEZOLID (ZYVOX) 2 S; Status: F Lab Order: Lactic Acid (Pickering tube on ice); [facility] 07/05/16 13:08 Test: LACTIC ACID LEVEL, LACTATE; Value: 0.8; Range: 0.4-2.0; Units: MMOL/L; Status: F Lab Order: LIPASE; [facility] 07/05/16 12:09 Test: LIPASE; Value: 235; Range: 73-393; Units: U/L; Status: F Lab Order: LIVER PROFILE; [facility] 07/05/16 12:09 Test: AST/SGOT; Value: 12; Range: 15-37; Abnormal: Below low normal; Units: U/L; Status: F Test: ALT/SGPT; Value: 17; Range: 12-78; Units: U/L; Status: F Test: ALKALINE PHOSPHATASE; Value: 65; Range: 45-117; Units: U/L; Status: F Test: BILIRUBIN,TOTAL; Value: 0.5; Range: 0.2-1.0; Units: MG/DL; Status: F Test: BILIRUBIN,DIRECT; Value: 0.2; Range: 0.0-0.2; Units: MG/DL; Status: F Test: TOTAL PROTEIN; Value: 8.5; Range: 6.4-8.2; Abnormal: Above high normal; Units: GM/DL; Status: F Test: ALBUMIN; Value: 2.8; Range: 3.2-5.2; Abnormal: Below low normal; Units: GM/DL; Status: F Test: ALBUMIN/GLOBULIN RATIO; Value: 0.49; Range: 1.00-1.93; Abnormal: Below low normal; Status: F Radiology Order: Chest, 1 View Test: Chest, 1 View REASON FOR EXAMINATION: Cough; CHEST, ONE VIEW:; ; HISTORY: Cough.; ; COMPARISON: 06/14/2016.; ; Diffuse interstitial markings are present that are decreased compared to the; previous study. The cardiac silhouette is enlarged. The pulmonary vasculature is; prominent.; ; IMPRESSION:; ; Findings consistent with congestive heart failure that are decreased compared to; the previous study.; ; ; ; Unreviewed; Radiology Order: CT ABD & PELVIS: IV and Oral Contrast Test: CT ABD & PELVIS: IV and Oral Contrast REASON FOR EXAMINATION: new ;Abd. Pain - Generalized, Nn-focal Exam; CT study of the abdomen and pelvis with IV and oral contrast:; ; History: Generalized abdominal pain.; ; Comparison head CT study is from June 14, 2016.; ; CT contrast dose: 100 ml of Isovue-370 is administered intravenously.; ; CT findings: Preliminary livestock agent radiograph shows a feeding percutaneous tube in; the left upper quadrant. Air-filled small bowel loops are scattered in the; abdomen.; ; Lung window settings demonstrate improvement in the lower lobe infiltrates in the; interval since the June 14, 2016 study. There is still some patchy; consolidation in the lower lobes, but this is much improved. No pleural effusion; is seen today. A very small amount of pericardial fluid is seen. A left upper; quadrant feeding jejunostomy tube is noted. The liver and the spleen are normal; in size and homogeneous in texture. Gallbladder and pancreas are unremarkable.; No adrenal lesion is seen. The kidneys enhance symmetrically and are; morphologically intact. No obstructive lesion is seen in the GI tract. There is; a left inguinal hernia containing a knuckle of unobstructed sigmoid colon. There; is fatty infiltration of the spermatic cords bilaterally. Urinary bladder is; intact. Prostate contains one or two dystrophic calcifications. The appendix is; not directly visualized, but there is no CT evidence to suggest appendicitis.; ; Impression:; ; 1. Significant improvement in the previously noted bilateral lower lobe; pneumonia.; ; 2. Feeding tube in the left upper quadrant.; ; 3. No acute intra-abdominal abnormality. Left inguinal hernia contains a; knuckle of unobstructed sigmoid colon.; ; ; Signed by; Linden Laird MD 07/05/2016 06:38 P; Outcome: 17:02 Discharge ordered by Provider. le 17:25 Discharge Assessment: Patient awake and alert. Oriented to none Pt non-verbal.. patient kc3 administered narcotics - no. The following High Risk Discharge criteria are identified: None. [facility] to [facility]. Condition: stable. Discharge instructions given to executive vice president and chief financial officer, Instructed on discharge instructions, follow up and referral plans. Demonstrated understanding of instructions, Pt was receptive of discharge instructions/ teaching. CT Study completed. Property :Personal belongings accompany Pt. 17:35 Patient left the ED. [facility] Signatures: Dispatcher [employer] EDIN Heather Summers, RN RN [facility] Barbie Bucio, Reg Reg Mercedes BillsRN RN ck1 Jolene Murillo, POLE SANDER OPERATOR POLE SANDER OPERATOR Alexandria Michele mm15 Sergio Pike, INTERNSHIP INTERNSHIP jrd Disha Nath,RN RN kc3 Farideh Valenzuela, INTERNSHIP INTERNSHIP bnb Corrections: (The following items were deleted from the chart) 13:18 13:00 Diatrizoate Meglumine & Sodium Liquid 10 ml PO kc3 kc3 Chart Complete MTDD
--- NOTE | 2016-07-07 18:36 | EDDOCDS ---
Physician Documentation [facility] Name: Baldemar Jones Age: 61 yrs Sex: Male : 1955 Arrival Date: 07/05/2016 Time: 11:23 Bed 6 Private MD: Gerri High Disposition: 07/05 17:05 Critical Care: Critical care not applicable. le Disposition: 07/05/16 17:02 Discharged to Home/Self Care. Impression: Fever of other and unknown origin, Unspecified bacterial pneumonia - improving. - Condition is Stable. - Discharge Instructions: Fever, Adult, Pneumonia, Adult. - Medication Reconciliation, Local Pharmacy Hours form. - Follow up: Gerri High; When: Call to arrange an appointment; Reason: Recheck today's complaints, Continuance of care. - Problem is new. - Symptoms have improved. - Notes: Continue to hydrate Use Tylenol and Ibuprofen, as needed, for fever >101.5 Return to the ED for any further concerns Historical: - Allergies: no known allergies; - Home Meds: 1. albuterol sulfate 2.5 mg /3 mL (0.083 %) Inhl nebu 3 mL 4 times per day 2. atorvastatin 40 mg oral tab 1 tab once daily 3. Depakene 250 mg Oral cap twice a day 4. Diabetic Tussin DM 10-100 mg/5 mL oral syrp every 6 hours 5. Flomax 0.4 mg Oral cp24 1 cap once daily 6. Lipitor 40 mg Oral tab once daily 7. Miralax 17 gram/dose Oral powd once daily 8. oxygen 2 liters NC nightly 9. paroxetine HCl 20 mg Oral tab once daily 10. Senna-S 8.6-50 mg oral tab prn 11. Sinemet 25-100 mg Oral tab 1 tab 3 times per day 12. Tylenol 325 mg Oral tab 2 tabs every 6 hours 13. Zyprexa 5 mg Oral tab 1 tab once daily - PMHx: Asthma; BPH; Diabetes - NIDDM: controlled; Down's Syndrome; Hypercholesterolemia; Parkinson's Disease; - PSHx: J-tube placement; Abdominal surgery; - Social history: Smoking status: Patient states was never smoker of tobacco. No barriers to communication noted, The patient speaks fluent Bulgarian, Speaks appropriately for age. - Family history: Not pertinent. - : The pt / caregiver states he / she is not on anticoagulants. Home medication list is obtained from [employer] import data. - Exposure Risk Screening:: None identified. Vital Signs: 11:49 BP 107 / 62; Pulse 93; Resp 18; Temp 99.3(O); Pulse Ox 98% on R/A; Height 5 ft. 4 in. kc3 (162.56 cm); 14:46 BP 119 / 63; Pulse 96; Resp 18; Temp 99.5(TE); Pulse Ox 98% on R/A; kc3 17:25 BP 117 / 65; Pulse 89; Resp 18; Temp 98.6(TE); Pulse Ox 62% on R/A; kc3 MDM: 11:39 -Blood Culture (Adults Only), peripheral from different site, or from device/port/PICC fg etc. if present ordered. 11:39 IV Saline Lock ordered. fg 11:40 CBC with Diff Ordered. EDMS 11:40 Basic Metabolic Profile Ordered. EDMS 11:40 Urinalysis Ordered. EDMS 11:40 -Blood Culture Ordered. EDMS 11:40 Urine Culture Ordered. EDMS 11:42 Chest, 1 View Ordered. EDMS 11:42 ECG WITH READING ER PHYS+CARDIAG ordered. EDMS 11:46 -Blood Culture (Adults Only), peripheral from different site, or from device/port/PICC kpj etc. if present complete. 11:47 BLOOD CULTURES Ordered. EDMS 12:27 Straight cath ordered. le 12:28 Misc. Nursing Order ordered. le 12:29 CT ABD & PELVIS: IV and Oral Contrast Ordered. EDMS 12:29 Lactic Acid ([place] tube on ice) Ordered. EDMS 12:31 Financial registration complete. mm15 12:36 [facility] Payment Agreement was scanned into [employer] and attached to record. mm15 12:38 LIPASE Ordered. EDMS 12:38 LIVER PROFILE Ordered. EDMS 12:52 BED REQUEST+ADM ordered. EDMS 13:14 Diatrizoate Meglumine & Sodium Liquid 10 ml PO once; mix in 290cc of water ordered. kc3 13:14 Diatrizoate Meglumine & Sodium Liquid 10 ml PO once; mix in 290cc of water ordered. kc3 13:56 CBC with Diff Reviewed. le 13:56 Basic Metabolic Profile Reviewed. le 13:56 LIVER PROFILE Reviewed. le 13:56 LIPASE Reviewed. le 13:56 Chest, 1 View Reviewed. le 15:07 NS 0.9% 500 ml IV at bolus once ordered. le 07/06 11:21 T-Sheet-- Draft Copy was scanned into [employer] and attached to record. gb Administered Medications: 07/05 13:00 Drug: Diatrizoate Meglumine & Sodium 10 ml [diatrizoate meglumine and diat.sodium 66 kc3 %-10 % oral solution (10 mL)] Route: G-Tube; 13:30 Drug: Diatrizoate Meglumine & Sodium 10 ml [diatrizoate meglumine and diat.sodium 66 kc3 %-10 % oral solution (10 mL)] Route: G-Tube; 15:35 Drug: NS 0.9% 500 ml [sodium chloride 0.9 % intravenous solution] Route: IV; Rate: kc3 bolus; Site: left forearm; Signatures: Dispatcher [employer] EDMS Heather Summers RN RN kpj Barbie Bucio, Reg Reg Jolene Isaac, SIZE CUTTER SIZE CUTTER Alexandria Michele mm15 Yasmine Morris MD MD fg Crane, Kelsi,RN RN kc3 The chart was reviewed and I authenticate all verbal orders and agree with the evaluation and treatment provided.Corrections: (The following items were deleted from the chart) 12:37 12:28 LIVER PROFILE+LAB ordered. EDMS EDMS 12:37 12:28 LIPASE+LAB ordered. EDMS EDMS Attachments: 12:36 [facility] [place] Payment Agreement mm15 07/06 11:21 T-Sheet-- Draft Copy gb Chart Complete MTDD
== END 2016-07-05 17:35 | disposition home or self-care (01) ==
LOC: M ED 11:23 → EEVIPCON 11:23 → M ED 17:35
DX: R50.9 Fever, unspecified (principal); J18.9 Pneumonia, unspecified organism; E11.9 Type 2 diabetes mellitus without complications; J45.909 Unspecified asthma, uncomplicated; N40.0 Benign prostatic hyperplasia without lower urinary tract symptoms; E78.00 Pure hypercholesterolemia, unspecified; G20 Parkinson's disease; Q90.9 Down syndrome, unspecified; Z79.899 Other long term (current) drug therapy; Z99.81 Dependence on supplemental oxygen

== ENCOUNTER 2016-07-07 12:46 | Inpatient (IN) | payer MEDICARE, MEDICAID ==
[~2016-07-07] VITALS: Ht 162.6 cm; Wt 54.3 kg
[2016-07-07 14:43] LABS: BASO % 0.7 % (0.0-1.0); EOS # 0.1 K/mm3 (0.0-0.50); EOS % 0.9 % (0.0-3.0); LARGE UNSTAINED CELL # 0.1 K/mm3 (0.0-0.4); LYMPH # 1.3 K/mm3 (1.5-4.5); MEAN CORPUSCULAR HGB CONC 32.6 g/dl (32.0-36.5); MEAN CORPUSCULAR VOLUME 92.2 fl (80.0-96.0); MONO # 0.3 K/mm3 (0.0-0.8); MONO % 4.1 % (0.0-5.0); NEUTROPHILS # 5.5 K/mm3 (1.8-7.7); NEUTROPHILS % 75.2 % (36.0-66.0); PLATELET COUNT, AUTOMATED 154 k/mm3 (150-450); RED CELL DISTRIBUTION WIDTH 16.5 % (11.5-14.5); WHITE BLOOD COUNT 7.4 K/mm3 (4.0-10.0)
[2016-07-07 14:52] LABS: MICROSCOPIC INDICATED? MAN YES (NO)
[2016-07-07 14:58] LABS: ALBUMIN 2.7 GM/DL (3.2-5.2); ALBUMIN/GLOBULIN RATIO 0.63 (1.00-1.93); ALKALINE PHOSPHATASE 59 U/L (45-117); ALT/SGPT 11 U/L (12-78); ANION GAP 9 MEQ/L (8-16); AST/SGOT 16 U/L (15-37); BILIRUBIN,DIRECT 0.2 MG/DL (0.0-0.2); BILIRUBIN,TOTAL 0.4 MG/DL (0.2-1.0); BLOOD UREA NITROGEN 23 MG/DL (7-18); CALCIUM LEVEL 8.1 MG/DL (8.8-10.2); CARBON DIOXIDE LEVEL 28 MEQ/L (21-32); CHLORIDE LEVEL 111 MEQ/L (98-107); CREATININE FOR GFR 0.74 MG/DL (0.70-1.30); GLOMERULAR FILTRATION RATE > 60.0 (>49); GLUCOSE, FASTING 167 MG/DL (80-110); POTASSIUM SERUM 3.6 MEQ/L (3.5-5.1); SODIUM LEVEL 148 MEQ/L (136-145)
[2016-07-07 15:04] LABS: SQUAMOUS EPITHELIAL CELL URINE NONE SEEN /hpf (SMALL AMT)
[2016-07-07 15:05] LABS: BACTERIA, URINE NONE SEEN; TRANSITIONAL EPI CELLS, URINE SMALL AMOUNT /hpf
[2016-07-07 15:06] LABS: GRANULAR CAST, URINE 0-1 /lpf; MICROSCOPIC EXAM PERFORMED
--- NOTE | 2016-07-07 15:08 | REP ---
CT ABDOMEN AND PELVIS WITHOUT CONTRAST: CT abdomen and pelvis is performed without IV contrast. Comparison made with a prior study of 07/05/2016. Sagittal and coronal reconstruction images are performed. The visualized lung bases demonstrate no change bibasilar lung infiltrates. The heart is enlarged. The liver, spleen, adrenals, pancreas and kidneys are grossly unremarkable and unchanged. There is no hydroureteronephrosis. There is no abdominal aortic aneurysm. There is no evidence of adenopathy, free air or free fluid. A feeding tube is seen in the upper abdomen and appears similar to the prior exam. There is a large amount of fecal material throughout the colon which is moderately distended. There is no evidence of small bowel obstruction. I see no pelvic mass. The urinary bladder is mildly distended and grossly unremarkable. There are small bilateral inguinal hernias containing fat. There are degenerative changes of the spine. IMPRESSION: No change in bibasilar lung infiltrates compared to a prior study of 07/05/2016. Small bilateral inguinal hernias contain fat. There is a large amount of fecal material scattered throughout a moderately distended colon. No evidence of small bowel obstruction. No free air or free fluid. Signed by Tirso Pickering MD 07/07/2016 04:29 P
[2016-07-07] MEDS ORDERED: D5W IV ONE (18:00)
[2016-07-07] MEDS ORDERED: VANCOMYCIN HCL PEDIATRIC IV ONE (18:00)
--- NOTE | 2016-07-07 19:36 | ECGEPIP ---
Stationary ECG Study [facility] - ED Test Date: 2016-07-07 Pat Name: BARI SERVIN Department: Room: - Gender: M Section [employer] Warden: [place] : 1955 Requested By: Gali Salmeron Order Number: [id number] Reading MD: Gali Salmeron Measurements Intervals [place] Rate: 81 P: 54 [place]: 232 QRS: 5 QRSD: 150 T: 199 QT: 418 QTc: 487 Interpretive Statements SINUS RHYTHM WITH FIRST DEGREE AV BLOCK LEFT BUNDLE BRANCH BLOCK Electronically Signed On 07-07-2016 19:36:18 EST by Gali Salmeron
[2016-07-07] MEDS ORDERED: NS 1,000 ML IV SCH (20:33)
[2016-07-07] MEDS ORDERED: ONDANSETRON 4MG/2ML VIAL (J2405) IV PRN (20:45)
[2016-07-07] MEDS ORDERED: GLUCAGON FOR INJ 1 MG VIAL (J1610) SC PRN (20:45)
[2016-07-07] MEDS ORDERED: SENOKOT S TAB PO PRN (20:45)
[2016-07-07] MEDS ORDERED: ONDANSETRON 4 MG TAB (S0181) PO PRN (20:45)
[2016-07-07] MEDS ORDERED: DEXTROSE 50% 50 ML SYRINGE IV PRN (20:45)
[2016-07-07] MEDS ORDERED: GLUCOSE 4 GM CHEW TABLET PO PRN (20:45)
[2016-07-07] MEDS ORDERED: MIRALAX *UNIT DOSE* 17GM PACKET PO PRN (20:45)
[2016-07-07] MEDS ORDERED: PERCOCET 5MG/325MG TAB PO PRN (20:45)
[2016-07-07] MEDS ORDERED: HumaLOG INSULIN (NovoLOG) PER UNIT SC SCH (21:00)
[2016-07-07 21:34] LABS: ANION GAP 4 MEQ/L (8-16); BLOOD UREA NITROGEN 21 MG/DL (7-18); CALCIUM LEVEL 7.4 MG/DL (8.8-10.2); CARBON DIOXIDE LEVEL 31 MEQ/L (21-32); CHLORIDE LEVEL 111 MEQ/L (98-107); CREATININE FOR GFR 0.62 MG/DL (0.70-1.30); GLOMERULAR FILTRATION RATE > 60.0 (>49); GLUCOSE, FASTING 135 MG/DL (80-110); POTASSIUM SERUM 3.3 MEQ/L (3.5-5.1); SODIUM LEVEL 146 MEQ/L (136-145)
--- NOTE | 2016-07-07 23:47 | HPEPDOC ---
General Date of Admission Jul 07, 2016 at 20:33 Attending Physician: RUBIN BRIONES Chief Complaint The patient is a 61-year-old male admitted with a reason for visit of Mrsa Bacteremia. Source: [facility] Caregiver/Aid, Other (special education case manager) Exam Limitations: Other (Pt is nonverbal) History of Present Illness Mr. Baldemar Jones is a 61 year old male with a history of Down's syndrome, recurrent pneumonia, NIDDM, BPH, asthma, and sleep apnea requiring oxygen at 2L nasal cannula at night, presenting to the ED with MRSA bacteremia resulted from an ED visit on 07/05/2016. Pt was recently admitted to the hospital for multifocal aspiration pneumonia one month ago and treated with a 7 days of vancomycin and meropenem. A peg tube was also placed during his previous admission to prevent further episodes of aspiration pneumonia. Patient was discharged 06/26/16 after resolution of pneumonia. The patient is non-verbal so the history taken today is per his special education case manager. Patient at baseline is reported as lively and responsive to conversation but the special education case manager reports the pt has been progressively more and more lethargic since his last hospitalization. His plastic bubble packer at [facility] also noted he has had raspy breathing since he left the hospital 06/26. On 07/05, his caregiver reports he had a measured temperature of 101F. Over the last 2 days, the pt was witnessed multiple times grasping his head repeatedly in pain. He was also witnessed doubling over and clutching his abdomen before taking a shower 2 nights ago. Both these events are reportedly unusual for this patient. His special education case manager also reported that the patient has had 2-3 episodes of loose watery diarrhea a day since 06/26 and it has progressed to foul-smelling mustard yellow stool. Pt has also been more diaphoretic over the past 2 day. He was seen in the ED 2 days ago, and blood cultures were collected at that time. Today they began growing MRSA in 1/2 bottles, so they were called to return to the ED. ROS was unobtainable because pt was non-verbal. Home Medications Scheduled Albuterol Sulfate (Albuterol Sulfate) 2.5 Mg/3 Ml Nebu 2.5 MG INH QID (Reported ) 0600,1200,1600,1900 Atorvastatin Calcium (Atorvastatin Calcium) 40 Mg Tab 40 MG PO QHS (Reported) Carbidopa/Levodopa (Sinemet 25-100 mg) 1 Tab Tab 1 TAB PO TID (Reported) 0600,1200,1900 Olanzapine (Zyprexa) 5 Mg Tab 5 MG PO QHS (Reported) Paroxetine Hydrochloride (Paxil) 20 Mg Tab 20 MG PO DAILY (Reported) Tamsulosin Hydrochloride (Flomax) 0.4 Mg Cap 0.4 MG PO DAILY (Reported) Scheduled PRN Docusate Sod/Senna (Senna S 8.6-50 mg) 1 Tab Tab 1 TAB PO QHS PRN PRN CONSTIPATION (Reported) ON DAY 3 OF NO BM Polyethylene Glycol (Miralax) 1 Pow Pow 17 GM PO DAILY PRN PRN CONSTIPATION ( Reported) Allergies Coded Allergies: Metformin (Verified Adverse Reaction, Mild, DIARHEA, 09/13/12) Past Medical History Medical History Down's Syndrome, Asthma, BPH, NIDDM, Hypercholesterolemia, Parkinson's, Abdominal hernia, History of recurrent aspiration pneumonia, sleep apnea Surgical History Peg-tube placement Family History Family History Sister had multiple CVA's Social History * Smoker: non-smoker Alcohol: denies Drugs: denies Physical Examination General Exam: Positive: Alert, Cooperative, No Acute Distress Eye Exam: Positive: Conjunctiva & lids normal, EOMI, PERRLA, Negative: Ptosis, Sclera icteric ENT Exam: Positive: Atraumatic, Nares Patent, Pharynx Normal, Tongue Midline, Negative: Mucous membr. moist/pink, Pharyngeal Edema Neck Exam: Positive: Other (Firm smooth nodule approx 1cm felt on the left that rises with swallowing. ), Supple, Negative: JVD Chest Exam: Positive: Clear to auscultation, Normal air movement, Wheezing ( Originating from upper airway) Heart Exam: Positive: Murmurs (Systolic), Normal S1, Normal S2, Rate Normal, Regular Rhythm Abdomen Exam: Positive: Mass (Liver edge palpated at RUQ), Normal bowel sounds , Other (Peg tube placement site is mildly erythematous with minimal serous drainage surrounding the tube. No evidence of acute infectious process, this is likely from irritation.), Soft, Tenderness (Tender to palpation on RUQ) Male Exam: Positive: Normal Genital Exam Extremity Exam: Positive: Normal pulses, Negative: Clubbing, Cyanosis, Edema Skin Exam: Positive: Nl turgor and temperature, Other skin issue (Mild reddening of skin over bilateral upper buttocks without any evidence of skin breakdown. ), Negative: Breakdown, Rash Vital Signs Temperature 97.3F(O) B/P 110/54 Pulse 82, Resp 16, 95% on R/A Height (in): 64 Weight (kg): 54.42 Laboratory Data Labs 24H Laboratory Tests 2 07/07/16 14:25: Aspartate Amino Transf (AST/SGOT) 16, Alanine Aminotransferase (ALT/SGPT) 11L, Alkaline Phosphatase 59, Total Bilirubin 0.4, Direct Bilirubin 0.2, Albumin 2.7L , Albumin/Globulin Ratio 0.63L, Anion Gap 9, White Blood Count 7.4, Red Blood Count 3.50L, Hemoglobin 10.5L, Hematocrit 32.3L, Mean Corpuscular Volume 92.2, Mean Corpuscular Hemoglobin 30.0, Mean Corpuscular Hemoglobin Concent 32.6, Red Cell Distribution Width 16.5H, Platelet Count 154, Neutrophils (%) (Auto) 75.2H , Lymphocytes (%) (Auto) 18.0L, Monocytes (%) (Auto) 4.1, Eosinophils (%) (Auto ) 0.9, Basophils (%) (Auto) 0.7, Neutrophils # (Auto) 5.5, Lymphocytes # (Auto) 1.3L, Monocytes # (Auto) 0.3, Eosinophils # (Auto) 0.1, Basophils # (Auto) 0.0, Bedside Urine Appearance (LAB) CLEAR, Bedside Urine Bilirubin (LAB) NEGATIVE, Bedside Urine Blood NEGATIVE, Bedside Urine Color (LAB) YELLOW, Bedside Urine Glucose (UA) NEGATIVE, Bedside Urine Ketones (LAB) NEGATIVE, Bedside Urine Leukocyte Esterase (L NEGATIVE, Bedside Urine Nitrite (LAB) NEGATIVE, Bedside Urine Protein (LAB) TRACEH, Bedside Urine Specific [place] (LAB 1.025, Bedside Urine Urobilinogen (LAB) NORMAL, Bedside Urine pH (LAB) 5.0, Calcium Level 8.1L , Glomerular Filtration Rate > 60.0, Lactic Acid Level 1.0, Large Unclassified Cells # 0.1, Large Unclassified Cells % 1.0, Total Protein 7.0, Urine WBC 7-10H , Urine RBC 1-3, Urine Squamous Epithelial Cells NONE SEEN, Urine Transitional Epithelial Cells SMALL AMOUNTH, Urine Bacteria NONE SEEN, Urine Hyaline Casts 1- 3H, Urine Mucus LARGE AMOUNTH, Urine Amorphous Sediment SMALL AMOUNTH, Urine Sediment Examination PERFORMED, Urine Granular Casts 0-1, Valproic Acid ( Depakene) Level < 3.0L 07/07/16 20:59: CBC/BMP Laboratory Tests 07/07/16 14:25 Red Blood Count 3.50 L, Mean Corpuscular Volume 92.2, Mean Corpuscular Hemoglobin 30.0, Mean Corpuscular Hemoglobin Concent 32.6, Red Cell Distribution Width 16.5 H, Neutrophils (%) (Auto) 75.2 H, Lymphocytes (%) (Auto ) 18.0 L, Monocytes (%) (Auto) 4.1, Eosinophils (%) (Auto) 0.9, Basophils (%) ( Auto) 0.7, Neutrophils # (Auto) 5.5, Lymphocytes # (Auto) 1.3 L, Monocytes # ( Auto) 0.3, Eosinophils # (Auto) 0.1, Basophils # (Auto) 0.0 Microbiology Microbiology 07/07/16 Blood Culture, Received Pending 07/07/16 Blood Culture, Received Pending 07/07/16 Urine Culture, Received Pending (1) MRSA bacteremia Status: Acute Assessment & Plan: Pt's B/C from 07/05 showed growth of MRSA in one tube and no growth in the other. Pt has a reported temperature of 101F on 07/05/16 but in the ED, his temperature was 97.3 orally. His floor care specialist reports that he spits out oral thermometers so we will measure his temperature during his stay with alternative methods. At this time, we are unsure of the source of pt's MRSA. Pt' s peg tube site appears mildly irritated but not infected, his pressure injury on his buttock is clean, dry, and the overlying skin is intact, and his urine is without LE or bacteria. We will get a Transthoracic Echocardiogram, another set of B/C and begin vancomycin at this time. (2) Hypernatremia Status: Acute Assessment & Plan: Pt's sodium was 148 on ED arrival, suspect it is due to hemoconcentration secondary to dehydration. Will get repeat BMP in the mornings and monitor after rehydration. (3) Aspiration pneumonia Status: Acute Assessment & Plan: Unsure at this time if previous pneumonia is still ongoing. Pt did not cough during examination and was at 95% on R/A. Although the pt's breathing was loud, the sound appeared to originate from upper airways and no wheezing was heard on auscultation. Pt's WBC is not currently elevated. Will CT chest and reevaluate. It is possible Pt's source for his MRSA bacteremia is from his pneumonia. Pt will be started on vancomycin for his bacteremia and will adjust antibiotic if necessary. (4) Diarrhea Status: Acute Assessment & Plan: Pt's stool is described as progressing from loose and watery to foul-smelling mustard-yellow. Suspect it is due to peg tube feedings but will check for C. difficile since the pt has been on multiple antibiotics. (5) Neck mass Status: Acute Assessment & Plan: A mass was palpated on left side of neck during physical exam. Will ultrasound. (6) Anemia Status: Acute Assessment & Plan: Pt's hgb today is 10.5. Going over the pt's past history, it appears his baseline hovers around a hbg of 10-11. Will transfuse if necessary otherwise, we will monitor his h/h through CBC in AM labs. (7) DM2 (diabetes mellitus, type 2) Status: Chronic Assessment & Plan: Will stop all PO anti-diabetic medications upon hospitalization and put pt on sliding scale of insulin. (8) Dyslipidemia Status: Chronic Assessment & Plan: Continue atorvastatin (9) BPH (benign prostatic hyperplasia) Status: Chronic Assessment & Plan: Continue home medications for BPH (10) Down's syndrome Status: Chronic (11) Parkinsons disease Status: Chronic Assessment & Plan: Continue current medications (12) Asthma Status: Chronic Assessment & Plan: Continue albuterol PRN and nebulizer 4 times a day (13) DVT prophylaxis Status: Chronic Assessment & Plan: Lovenox, TEDs, SEQs Plan / VTE VTE Prophylaxis Ordered?: Yes Plan IVF: Initiate Diet: Continue Current (Will continue with tube feeding) Activity: Continue Current SALIMA POOLE DO Jul 07, 2016 22:25 RUBIN BRIONES Jul 08, 2016 06:25
[2016-07-08] VITALS (7 sets, daily range): BP systolic 112–136; BP diastolic 56–75
[2016-07-08] MEDS ORDERED: ATORVASTATIN 20 MG TAB As Ordered ONE (00:19)
[2016-07-08] MEDS ORDERED: OLANZapine 5 MG TAB As Ordered ONE (00:19)
[2016-07-08] MEDS ORDERED: VANCOMYCIN 1000 MG/20 ML VIAL (J3370) As Ordered ONE ×2 (00:19→12:19)
[2016-07-08] MEDS: ATORVASTATIN 20 MG TAB PO SCH ×2 (00:22→21:15)
[2016-07-08] MEDS: OLANZapine 5 MG TAB PO SCH ×2 (00:22→21:15)
[2016-07-08] MEDS: VANCOMYCIN HCL 1,000 MG, VIAL MATE ADAPTER 1 EACH in D5W 250 ML IV SCH ×2 (00:22→12:00)
[2016-07-08] MEDS: SINEMET 25-100 MG TAB PO SCH ×4 (00:22→18:50)
[2016-07-08 02:52] LABS: ANION GAP 6 MEQ/L (8-16); BLOOD UREA NITROGEN 18 MG/DL (7-18); CALCIUM LEVEL 7.4 MG/DL (8.8-10.2); CARBON DIOXIDE LEVEL 29 MEQ/L (21-32); CHLORIDE LEVEL 110 MEQ/L (98-107); GLOMERULAR FILTRATION RATE > 60.0 (>49); GLUCOSE, FASTING 161 MG/DL (80-110); POTASSIUM SERUM 3.3 MEQ/L (3.5-5.1); SODIUM LEVEL 145 MEQ/L (136-145)
--- NOTE | 2016-07-08 04:48 | PHACANCOPD ---
PHARMACY VANCOMYCIN DOSING Pt Demographics Demographics Patient Age:61 , Weight:55.000 , Gender: male Adjusted Body Weight Date: 07/08/16, Adjusted Body Weight: [54.43] Kg ACTUAL WEIGHT Vancomycin Vancomycin indication: MRSA BACTEREMIA Vancomycin Target Ranges: 15-20 mcg/ml Vancomycin Load Y/N: Yes Load Dose Date Time Vancomycin Load Dose: 1250MG Date: 07/07/16 Time: 1845 Vancomycin Dose Date: 07/08/16. Current Vancomycin Dose: [1GM Q12H] Intermittent Dosing?: No Labs Labs Laboratory Tests 07/07/16 14:25 Red Blood Count 3.50 L, Mean Corpuscular Volume 92.2, Mean Corpuscular Hemoglobin 30.0, Mean Corpuscular Hemoglobin Concent 32.6, Red Cell Distribution Width 16.5 H, Neutrophils (%) (Auto) 75.2 H, Lymphocytes (%) (Auto ) 18.0 L, Monocytes (%) (Auto) 4.1, Eosinophils (%) (Auto) 0.9, Basophils (%) ( Auto) 0.7, Neutrophils # (Auto) 5.5, Lymphocytes # (Auto) 1.3 L, Monocytes # ( Auto) 0.3, Eosinophils # (Auto) 0.1, Basophils # (Auto) 0.0 07/07/16 20:59 Calcium Level 7.4 L 07/08/16 02:07 Calcium Level 7.4 L Micro Microbiology 07/07/16 Blood Culture, Received Pending 07/07/16 Blood Culture, Received Pending 07/08/16 Gastrointestinal Tract Panel (PCR), Received Pending 07/07/16 Urine Culture, Received Pending Creatinine Clearance Date:07/08/16. Creatinine Clearance: [81.7]CALCULATED. Pending Labs Vancomycin trough due 07/08@2300 Assessment and Plan Maintaining Current Dose?: Yes Reason for dose change: No Dose Change Pharmacist Note Pharmacist Note Date: 07/08/16. Pharmacist note:MRSA BACTEREMIA Patient scr=0.74 calculated crcl =81.7-given vancomycin 1250mg load in ed 07/07@1845,will continue w/1 gram IV Q12H and draw trough prior to the fourth dose( 07/08 @2300)-will continue to follow scr and monitor levels. KONSTANTIN BENÍTEZ [facility] Jul 08, 2016 04:48
[2016-07-08 06:26] LABS: EOS # 0.1 K/mm3 (0.0-0.50); LARGE UNSTAINED CELL # 0.1 K/mm3 (0.0-0.4); LARGE UNSTAINED CELL % 1.7 % (0.0-4.0); LYMPH # 0.9 K/mm3 (1.5-4.5); LYMPH % 19.1 % (24.0-44.0); MEAN CORPUSCULAR HEMOGLOBIN 29.9 pg (27.0-33.0); MEAN CORPUSCULAR HGB CONC 32.3 g/dl (32.0-36.5); MEAN CORPUSCULAR VOLUME 92.6 fl (80.0-96.0); MONO # 0.2 K/mm3 (0.0-0.8); NEUTROPHILS # 3.5 K/mm3 (1.8-7.7); NEUTROPHILS % 72.2 % (36.0-66.0); PLATELET COUNT, AUTOMATED 129 k/mm3 (150-450); RED CELL DISTRIBUTION WIDTH 16.6 % (11.5-14.5); WHITE BLOOD COUNT 4.8 K/mm3 (4.0-10.0)
[2016-07-08 06:45] LABS: ANION GAP 7 MEQ/L (8-16); BLOOD UREA NITROGEN 16 MG/DL (7-18); CALCIUM LEVEL 7.5 MG/DL (8.8-10.2); CARBON DIOXIDE LEVEL 30 MEQ/L (21-32); CHLORIDE LEVEL 110 MEQ/L (98-107); CREATININE FOR GFR 0.57 MG/DL (0.70-1.30); GLOMERULAR FILTRATION RATE > 60.0 (>49); GLUCOSE, FASTING 132 MG/DL (80-110); MAGNESIUM LEVEL 2.1 MG/DL (1.8-2.4); POTASSIUM SERUM 3.8 MEQ/L (3.5-5.1); SODIUM LEVEL 147 MEQ/L (136-145)
[2016-07-08] MEDS ORDERED: HumaLOG INSULIN (NovoLOG) PER UNIT SC SCH (07:30)
[2016-07-08] MEDS ORDERED: ALBUTEROL SULFATE 2.5 MG/0.5 ML INH NEB SOLN As Ordered ONE ×3 (08:20→15:38)
[2016-07-08] MEDS: ALBUTEROL SULFATE 2.5 MG/0.5 ML INH NEB SOLN INH SCH ×4 (08:31→20:15)
[2016-07-08] MEDS: PARoxetine 20 MG TAB PO SCH (09:00)
[2016-07-08] MEDS: TAMSULOSIN 0.4 MG CAP PO SCH (09:00)
[2016-07-08] MEDS: ENOXAPARIN 40 MG/0.4 ML SYRINGE (J1650) SC SCH (09:00)
--- NOTE | 2016-07-08 11:26 | IPNPDOC ---
Assessment/Plan Date Seen The patient was seen on 07/08/16. Problems Problems: (1) MRSA bacteremia Status: Acute Problem Text: Pt's B/C from 07/05 showed growth of MRSA in one tube and no growth in the other. Pt has a reported temperature of 101F on 07/05/16 but in the ED, his temperature was 97.3 orally. His personal care home administrator reports that he spits out oral thermometers so we will measure his temperature during his stay with alternative methods. At this time, we are unsure of the source of pt's MRSA. Pt' s peg tube site appears mildly irritated but not infected, his pressure injury on his buttock is clean, dry, and the overlying skin is intact, and his urine is without LE or bacteria. We will get a Transthoracic Echocardiogram continue vancomycin. (2) Hypernatremia Status: Acute Problem Text: Pt's sodium was 148 on ED arrival, suspect it is due to hemoconcentration secondary to dehydration. Possibly not getting enough free water through PEG tube. Will get repeat BMP in the mornings and monitor after rehydration. will increase free water through PEG tube to 600 cc in 24 hours. (3) Aspiration pneumonia Status: Acute Problem Text: Unsure at this time if previous pneumonia is still ongoing. Pt did not cough during examination and was at 95% on R/A. Although the pt's breathing was loud, the sound appeared to originate from upper airways and no wheezing was heard on auscultation. Pt's WBC is not currently elevated. Will CT chest and reevaluate. It is possible Pt's source for his MRSA bacteremia is from his pneumonia. Pt will be started on vancomycin for his bacteremia and will adjust antibiotic if necessary. (4) Diarrhea Status: Acute Problem Text: Pt's stool is described as progressing from loose and watery to foul-smelling mustard-yellow. Suspect it is due to peg tube feedings but will check for C. difficile since the pt has been on multiple antibiotics. will change peg tube feeds to a low residual Optimental (5) Neck mass Status: Acute Problem Text: A mass was palpated on left side of neck during physical exam. Will ultrasound. (6) Anemia Status: Acute Problem Text: Pt's hgb today is 10.5. Going over the pt's past history, it appears his baseline hovers around a hbg of 10-11. Will transfuse if necessary otherwise, we will monitor his h/h through CBC in AM labs. (7) DM2 (diabetes mellitus, type 2) Status: Chronic Problem Text: Will stop all PO anti-diabetic medications upon hospitalization and put pt on sliding scale of insulin. (8) Dyslipidemia Status: Chronic Problem Text: Continue atorvastatin (9) BPH (benign prostatic hyperplasia) Status: Chronic Problem Text: Continue home medications for BPH (10) Down's syndrome Status: Chronic (11) Parkinsons disease Status: Chronic Problem Text: Continue current medications (12) Asthma Status: Chronic Problem Text: Continue albuterol PRN and nebulizer 4 times a day (13) DVT prophylaxis Status: Chronic Problem Text: Lovenox, TEDs, SEQs Plan / VTE VTE Prophylaxis Ordered?: Yes Plan IVF: Initiate Diet: Continue Current (Will continue with tube feeding) Activity: Continue Current Subjective Review of Systems CC/HPI The patient is a 61-year-old male admitted with a reason for visit of Mrsa Bacteremia. Events since last encounter patient non verbal . as per [facility] staff having low grade fevers for 3 /4 days and persistent diarrhea since starting the tube feeding, has not been is usual self. they have not been able to get him out of bed last few days . he has been extremely weak. Objective Physical Examination General Exam: Positive: Alert, Cooperative, No Acute Distress Eye Exam: Positive: Conjunctiva & lids normal, EOMI, PERRLA, Negative: Ptosis, Sclera icteric ENT Exam: Positive: Atraumatic, Nares Patent, Pharynx Normal, Tongue Midline, Negative: Mucous membr. moist/pink, Pharyngeal Edema Neck Exam: Positive: Other (Firm smooth nodule approx 1cm felt on the left that rises with swallowing. ), Supple, Negative: JVD Chest Exam: Positive: Clear to auscultation, Normal air movement, Wheezing ( Originating from upper airway) Heart Exam: Positive: Murmurs (Systolic), Normal S1, Normal S2, Rate Normal, Regular Rhythm Abdomen Exam: Positive: Mass (Liver edge palpated at RUQ), Normal bowel sounds , Other (Peg tube placement site is mildly erythematous with minimal serous drainage surrounding the tube. No evidence of acute infectious process, this is likely from irritation.), Soft, Tenderness (Tender to palpation on RUQ) Male Exam: Positive: Normal Genital Exam Extremity Exam: Positive: Normal pulses, Negative: Clubbing, Cyanosis, Edema Skin Exam: Positive: Nl turgor and temperature, Other skin issue (Mild reddening of skin over bilateral upper buttocks without any evidence of skin breakdown. ), Negative: Breakdown, Rash Vital Signs/I&O Vital Signs Date Time Temp Pulse Resp B/P Pulse Ox O2 Delivery O2 Flow Rate FiO2 07/08/16 08:00 96.5 78 18 117/56 100 07/08/16 04:00 Nasal Cannula 2.0 Laboratory Data Labs 24H Laboratory Tests 2 07/07/16 14:25: Aspartate Amino Transf (AST/SGOT) 16, Alanine Aminotransferase (ALT/SGPT) 11L, Alkaline Phosphatase 59, Total Bilirubin 0.4, Direct Bilirubin 0.2, Albumin 2.7L , Albumin/Globulin Ratio 0.63L, Anion Gap 9, White Blood Count 7.4, Red Blood Count 3.50L, Hemoglobin 10.5L, Hematocrit 32.3L, Mean Corpuscular Volume 92.2, Mean Corpuscular Hemoglobin 30.0, Mean Corpuscular Hemoglobin Concent 32.6, Red Cell Distribution Width 16.5H, Platelet Count 154, Neutrophils (%) (Auto) 75.2H , Lymphocytes (%) (Auto) 18.0L, Monocytes (%) (Auto) 4.1, Eosinophils (%) (Auto ) 0.9, Basophils (%) (Auto) 0.7, Neutrophils # (Auto) 5.5, Lymphocytes # (Auto) 1.3L, Monocytes # (Auto) 0.3, Eosinophils # (Auto) 0.1, Basophils # (Auto) 0.0, Bedside Urine Appearance (LAB) CLEAR, Bedside Urine Bilirubin (LAB) NEGATIVE, Bedside Urine Blood NEGATIVE, Bedside Urine Color (LAB) YELLOW, Bedside Urine Glucose (UA) NEGATIVE, Bedside Urine Ketones (LAB) NEGATIVE, Bedside Urine Leukocyte Esterase (L NEGATIVE, Bedside Urine Nitrite (LAB) NEGATIVE, Bedside Urine Protein (LAB) TRACEH, Bedside Urine Specific [place] (LAB 1.025, Bedside Urine Urobilinogen (LAB) NORMAL, Bedside Urine pH (LAB) 5.0, Calcium Level 8.1L , Glomerular Filtration Rate > 60.0, Lactic Acid Level 1.0, Large Unclassified Cells # 0.1, Large Unclassified Cells % 1.0, Total Protein 7.0, Urine WBC 7-10H , Urine RBC 1-3, Urine Squamous Epithelial Cells NONE SEEN, Urine Transitional Epithelial Cells SMALL AMOUNTH, Urine Bacteria NONE SEEN, Urine Hyaline Casts 1- 3H, Urine Mucus LARGE AMOUNTH, Urine Amorphous Sediment SMALL AMOUNTH, Urine Sediment Examination PERFORMED, Urine Granular Casts 0-1, Valproic Acid ( Depakene) Level < 3.0L 07/07/16 20:59: Anion Gap 4L, Calcium Level 7.4L, Glomerular Filtration Rate > 60.0, Lactic Acid Level 0.5, Blood Urea Nitrogen 21H, Creatinine 0.62L, Sodium Level 146H, Potassium Level 3.3L, Chloride Level 111H, Carbon Dioxide Level 31 07/07/16 23:13: Bedside Glucose (Misc Panel) 128H 07/08/16 02:07: Anion Gap 6L, Calcium Level 7.4L, Glomerular Filtration Rate > 60.0, Blood Urea Nitrogen 18, Creatinine 0.60L, Sodium Level 145, Potassium Level 3.3L, Chloride Level 110H, Carbon Dioxide Level 29 07/08/16 06:10: Anion Gap 7L, White Blood Count 4.8, Red Blood Count 3.35L, Hemoglobin 10.0L, Hematocrit 31.0L, Mean Corpuscular Volume 92.6, Mean Corpuscular Hemoglobin 29.9 , Mean Corpuscular Hemoglobin Concent 32.3, Red Cell Distribution Width 16.6H, Platelet Count 129L, Neutrophils (%) (Auto) 72.2H, Lymphocytes (%) (Auto) 19.1L , Monocytes (%) (Auto) 4.0, Eosinophils (%) (Auto) 2.0, Basophils (%) (Auto) 1.0 , Neutrophils # (Auto) 3.5, Lymphocytes # (Auto) 0.9L, Monocytes # (Auto) 0.2, Eosinophils # (Auto) 0.1, Basophils # (Auto) 0.0, Blood Urea Nitrogen 16, Creatinine 0.57L, Sodium Level 147H, Potassium Level 3.8, Chloride Level 110H, Carbon Dioxide Level 30, Calcium Level 7.5L, Glomerular Filtration Rate > 60.0, Large Unclassified Cells # 0.1, Large Unclassified Cells % 1.7, Magnesium Level 2.1 07/08/16 08:19: Bedside Glucose (Misc Panel) 139H CBC/BMP Laboratory Tests 07/07/16 14:25 Red Blood Count 3.50 L, Mean Corpuscular Volume 92.2, Mean Corpuscular Hemoglobin 30.0, Mean Corpuscular Hemoglobin Concent 32.6, Red Cell Distribution Width 16.5 H, Neutrophils (%) (Auto) 75.2 H, Lymphocytes (%) (Auto ) 18.0 L, Monocytes (%) (Auto) 4.1, Eosinophils (%) (Auto) 0.9, Basophils (%) ( Auto) 0.7, Neutrophils # (Auto) 5.5, Lymphocytes # (Auto) 1.3 L, Monocytes # ( Auto) 0.3, Eosinophils # (Auto) 0.1, Basophils # (Auto) 0.0 07/07/16 20:59 Calcium Level 7.4 L 07/08/16 02:07 Calcium Level 7.4 L 07/08/16 06:10 Red Blood Count 3.35 L, Mean Corpuscular Volume 92.6, Mean Corpuscular Hemoglobin 29.9, Mean Corpuscular Hemoglobin Concent 32.3, Red Cell Distribution Width 16.6 H, Neutrophils (%) (Auto) 72.2 H, Lymphocytes (%) (Auto ) 19.1 L, Monocytes (%) (Auto) 4.0, Eosinophils (%) (Auto) 2.0, Basophils (%) ( Auto) 1.0, Neutrophils # (Auto) 3.5, Lymphocytes # (Auto) 0.9 L, Monocytes # ( Auto) 0.2, Eosinophils # (Auto) 0.1, Basophils # (Auto) 0.0, Calcium Level 7.5 L FSBS Laboratory Tests Test 07/07/16 23:13 07/08/16 08:19 Range/Units Bedside Glucose (Misc Panel) 128 139 80-115 MG/DL Microbiology Microbiology 07/07/16 Blood Culture, Received Pending 07/07/16 Blood Culture, Received Pending 07/08/16 Gastrointestinal Tract Panel (PCR) - Final, Complete 07/07/16 Urine Culture, Received Pending NANDINI VILLAVICENCIO MD Jul 08, 2016 11:26
[2016-07-08] MEDS ORDERED: NS 0.45% 1,000 ML IV SCH (11:30)
[2016-07-08] MEDS ORDERED: HumaLOG INSULIN (NovoLOG) PER UNIT As Ordered ONE (11:56)
[2016-07-08] MEDS: HumaLOG INSULIN (NovoLOG) PER UNIT SC SCH ×2 (12:00→17:41)
--- NOTE | 2016-07-08 15:27 | EDDOCDS ---
Physician Documentation [facility] Name: Baldemar Jones Age: 61 yrs Sex: Male : 1955 Arrival Date: 07/07/2016 Time: 12:46 Bed 19 Private MD: Gerri Aguiar DO. Disposition: 07/07/16 17:46 Hospitalization ordered by Freda Britt for Inpatient Admission. Preliminary diagnosis is Bacteremia - MRSA. - Bed requested for 4 [place]. - Status is Inpatient Admission. pml - Condition is Stable. - Problem is new. - Symptoms are unchanged. Historical: - Allergies: no known allergies; - Home Meds: 1. albuterol sulfate 2.5 mg /3 mL (0.083 %) Inhl nebu 3 mL 4 times per day 2. atorvastatin 40 mg oral tab 1 tab once daily 3. Depakene 250 mg Oral cap twice a day 4. Diabetic Tussin DM 10-100 mg/5 mL oral syrp every 6 hours 5. Flomax 0.4 mg Oral cp24 1 cap once daily 6. Lipitor 40 mg Oral tab once daily 7. Miralax 17 gram/dose Oral powd once daily 8. oxygen 2 liters [place] nightly 9. paroxetine HCl 20 mg Oral tab once daily 10. Senna-S 8.6-50 mg oral tab prn 11. Sinemet 25-100 mg Oral tab 1 tab 3 times per day 12. Tylenol 325 mg Oral tab 2 tabs every 6 hours 13. Zyprexa 5 mg Oral tab 1 tab once daily - PMHx: Asthma; BPH; Diabetes - NIDDM: controlled; Down's Syndrome; Hypercholesterolemia; Parkinson's Disease; - PSHx: J-tube placement; Abdominal surgery; - Social history: Smoking status: Patient states was never smoker of tobacco. No barriers to communication noted, The patient speaks fluent [place]ian, Speaks appropriately for age. - Family history: Not pertinent. - : The pt / caregiver states he / she is not on anticoagulants. Home medication list is obtained from the caregiver. - Exposure Risk Screening:: None identified. Vital Signs: 07/07 12:48 BP 102 / 51; Pulse 105; Resp 18 S; Temp 97.3(O); Pulse Ox 96% on R/A; Weight 54.43 kg / gr2 120 lbs (R); Height 5 ft. 4 in. (162.56 cm) (R); Pain 3/10; 18:28 BP 120 / 58 (auto/); js13 18:28 Pulse 84 MON; Resp 16; Pulse Ox 94% on R/A; js13 18:58 BP 100 / 50 (auto/); lf1 18:58 Pulse 84 MON; Pulse Ox 95% ; lf1 19:13 BP 110 / 58 (auto/); lf1 19:13 Pulse 86 MON; Pulse Ox 96% ; lf1 19:28 BP 106 / 56 (auto/); lf1 19:28 Pulse 80 MON; Pulse Ox 94% ; lf1 19:43 BP 110 / 54 (auto/); lf1 19:43 Pulse 82 MON; Pulse Ox 95% ; lf1 19:58 Pulse 80 MON; Pulse Ox 96% ; lf1 19:58 BP 110 / 56 (auto/); lf1 20:13 BP 131 / 58 (auto/); lf1 20:13 Pulse 80 MON; Pulse Ox 96% ; lf1 21:49 Pulse 80 MON; Resp 20; Temp 98.9(R); Pulse Ox 95% ; lf1 22:40 BP 115 / 58 (auto/); tm5 22:41 Pulse 84 MON; Resp 20 S; Pulse Ox 96% on R/A; tm5 07/08 15:25 BP 134 / 65; Pulse 94; Resp 20; Temp 96.5(T); Pulse Ox 96% on R/A; pml 07/07 12:48 Body Mass Index 20.60 (54.43 kg, 162.56 cm) gr2 07/07 12:48 WEIGH MAY NOT BE ACCURATE gr2 MDM: 13:51 -Blood Culture (Adults Only), peripheral from different site, or from device/port/PICC sd1 etc. if present ordered. 13:51 NS 0.9% (Sepsis- hypotension or lactate >4mmol/L, 30ml/kg) 30 ml/kg IV at bolus once; sd1 Give in 500mL aliquots, assess for rales after [id number] ordered. 13:51 -Blood Culture Ordered. EDMS 13:51 Lactic Acid ([place] tube on ice) Ordered. EDMS 13:53 CBC with Diff Ordered. EDMS 13:53 MED Profile Ordered. EDMS 13:53 CT ABD & PELVIS: No Contrast Ordered. EDMS 13:54 Urine Culture Ordered. EDMS 13:56 LIVER PROFILE Ordered. EDMS 13:56 VALPROIC ACID (DEPAKOTE) Ordered. EDMS 14:02 -Blood Culture (Adults Only), peripheral from different site, or from device/port/PICC lbd etc. if present complete. 14:05 BLOOD CULTURES Ordered. EDMS 14:30 Financial registration complete. mm15 14:36 Straight cath ordered. js13 14:43 [facility] Payment Agreement was scanned into DataProm and attached to record. mm15 14:52 URINALYSIS MANUAL Ordered. EDMS 15:00 CBC with Diff Reviewed. sd1 15:00 MED Profile Reviewed. sd1 15:00 LIVER PROFILE Reviewed. sd1 15:00 VALPROIC ACID (DEPAKOTE) Reviewed. sd1 15:00 URINALYSIS MANUAL Reviewed. sd1 15:00 Lactic Acid ([place] tube on ice) Reviewed. sd1 16:31 URINALYSIS MANUAL Reviewed. sd1 16:31 MICROSCOPIC, URINE Reviewed. sd1 16:31 CT ABD & PELVIS: No Contrast Reviewed. sd1 16:33 vancomycin (loading dose for pt. wt. 50-59kg) 1250 mg IVPB once ordered. sd1 17:05 BED REQUEST+ADM ordered. EDMS 17:46 [facility]/Pulse Ox/q 15 min VS ordered. sd1 17:49 ECG WITH READING ER PHYS+CARDIAG ordered. EDMS 20:44 Admission / Observation Status ordered. EDMS 20:44 ECHOCARD,DOPPLER/COLOR FLOW ordered. EDMS 20:44 CT Chest without contrast Ordered. EDMS 20:45 LACTIC ACID LEVEL, LACTATE Ordered. EDMS 20:45 BASIC METABOLIC PROFILE Ordered. EDMS 20:45 CBC WITH DIFFERENTIAL Ordered. EDMS 20:45 BASIC METABOLIC PROFILE Ordered. EDMS 20:45 MAGNESIUM LEVEL Ordered. EDMS 20:54 GASTROINTESTINAL (GI) PANEL Ordered. EDMS 21:41 BASIC METABOLIC PROFILE Ordered. EDMS 07/08 01:10 VANCOMYCIN LEVEL TROUGH Ordered. EDMS 06:27 Thyroid, ST head+neck US Ordered. EDMS 07:41 ECG/EKG was scanned into [employer] and attached to record. gb 08:28 Fingerstick Blood Sugar Ordered. EDMS 12:00 Fingerstick Blood Sugar Ordered. EDMS Administered Medications: 01/27 14:35 Drug: NS 0.9% (Sepsis- hypotension or lactate >4mmol/L, 30ml/kg) 1632.9 ml [sodium js13 chloride 0.9 % intravenous solution] Route: IV; Rate: bolus; Site: right forearm; 15:08 Follow up: IV Status: LS clear no rales.; IV Intake: 500ml js13 17:04 Follow up: IV Intake: 500ml ; No rales upon ausculation js13 18:36 Follow up: IV Status: No rales noted upon exam; IV Intake: 500ml js13 18:59 Follow up: IV Status: Completed infusion; IV Intake: 100ml lf1 17:24 CANCELLED (Duplicate Order): NS 0.9% (Sepsis- hypotension or lactate >4mmol/L, 30ml/kg) sd1 30 ml/kg IV at bolus once; Give in 500mL aliquots, assess for rales after each, 1500cc 17:30 Drug: vancomycin (loading dose for pt. wt. 50-59kg) 1250 mg [vancomycin 1,000 mg [facility] intravenous injection] Route: IVPB; Site: right forearm; Signatures: Dispatcher [employer] EDMS Gali Salmeron MD MD sd1 Hawa Marie, Braider Setter Unit lbd Barbie Bucio, Jing Hayden,Jeanne Haji RN, RN RN pml Sullivan, Jennifer, RN RN js13 [place] Cristina Bruce RN eugene Mederos, Jolene PASCAL lf1 The chart was reviewed and I authenticate all verbal orders and agree with the evaluation and treatment provided.Corrections: (The following items were deleted from the chart) 13:54 13:53 VALPROIC ACID (DEPAKOTE)+LAB ordered. EDMS EDMS 13:56 13:53 LIVER PROFILE+LAB ordered. EDMS EDMS 14:52 13:54 URINALYSIS+LAB ordered. EDMS EDMS 17:24 17:04 NS 0.9% (Sepsis- hypotension or lactate >4mmol/L, 30ml/kg) 30 ml/kg IV at bolus sd1 once; Give in 500mL aliquots, assess for rales after each, 1500cc ordered. sd1 20:54 20:52 GASTROINTESTINAL (GI) PANEL ordered. EDMS EDMS Attachments: 14:43 [facility] Payment Agreement mm15 07/08 07:41 ECG/EKG gb MTDD
--- NOTE | 2016-07-08 23:50 | PHACANCOPD ---
PHARMACY VANCOMYCIN DOSING Pt Demographics Demographics Patient Age:61 , Weight:54.500 , Gender: male Adjusted Body Weight Date: 07/08/16, Adjusted Body Weight: [54.43] Kg ACTUAL WEIGHT Vancomycin Vancomycin indication: MRSA BACTEREMIA Vancomycin Target Ranges: 15-20 mcg/ml Vancomycin Load Y/N: Yes Load Dose Date Time Vancomycin Load Dose: 1250MG Date: 07/07/16 Time: 1845 Vancomycin Dose Date: 07/08/16. Current Vancomycin Dose: [1GM Q12H] Intermittent Dosing?: No Labs Micro Microbiology 07/07/16 Blood Culture - Preliminary, Resulted No growth after 24 hours . All specim... 07/07/16 Blood Culture - Preliminary, Resulted No growth after 24 hours . All specim... 07/08/16 Gastrointestinal Tract Panel (PCR) - Final, Complete 07/07/16 Urine Culture, Received Pending Creatinine Clearance Date:07/08/16. Creatinine Clearance: [81.7]CALCULATED. Pending Labs Vancomycin trough due 07/08@2300 Assessment and Plan Maintaining Current Dose?: Yes Reason for dose change: No Dose Change Pharmacist Note Pharmacist Note Date: 07/08/16. Pharmacist note:Vancomycin trough drawn this pm@2300 reported as 14.0:will continue w/current regimen and continue to monitor SCR and levels Date: 07/08/16. Pharmacist note:MRSA BACTEREMIA Patient scr=0.74 calculated crcl =81.7-given vancomycin 1250mg load in ed 07/07@1845,will continue w/1 gram IV Q12H and draw trough prior to the fourth dose( 07/08 @2300)-will continue to follow scr and monitor levels. KONSTANTIN BENÍTEZ PHARMACY Jul 08, 2016 23:50
[2016-07-09] VITALS (32 sets, daily range): BP systolic 74–124; BP diastolic 39–79; O2SAT 97
[2016-07-09] MEDS: VANCOMYCIN HCL 1,000 MG, VIAL MATE ADAPTER 1 EACH in D5W 250 ML IV SCH ×2 (00:27→12:16)
[2016-07-09] MEDS: HumaLOG INSULIN (NovoLOG) PER UNIT SC SCH ×5 (00:28→23:29)
[2016-07-09] MEDS ORDERED: guaiFENesin ER 600 MG TAB PO ONE (01:45)
[2016-07-09 06:02] LABS: ABG BASE EXCESS -1.5 (-2.0-2.0); ABG HCO3 22.1 MEQ/L (22.0-26.0); ABG PARTIAL PRESSURE CO2 33.5 mmHg (35.0-45.0); ABG PARTIAL PRESSURE O2 63.2 mmHg (75.0-100.0); ABG STANDARD HCO3 23.1 MEQ/L (22.0-26.0); ABG TOTAL CO2 23.1 MEQ/L (23.0-31.0); ABG pH (ARTERIAL) 7.437 UNITS (7.350-7.450)
[2016-07-09 06:42] LABS: BASO % 0.6 % (0.0-1.0); EOS % 0.5 % (0.0-3.0); LARGE UNSTAINED CELL # 0.1 K/mm3 (0.0-0.4); LYMPH # 0.9 K/mm3 (1.5-4.5); LYMPH % 8.7 % (24.0-44.0); MEAN CORPUSCULAR HEMOGLOBIN 30.2 pg (27.0-33.0); MEAN CORPUSCULAR HGB CONC 32.8 g/dl (32.0-36.5); MONO # 0.3 K/mm3 (0.0-0.8); MONO % 3.1 % (0.0-5.0); NEUTROPHILS # 8.4 K/mm3 (1.8-7.7); NEUTROPHILS % 86.2 % (36.0-66.0); PLATELET COUNT, AUTOMATED 147 k/mm3 (150-450); RED CELL DISTRIBUTION WIDTH 16.6 % (11.5-14.5); WHITE BLOOD COUNT 9.8 K/mm3 (4.0-10.0)
[2016-07-09] MEDS: SINEMET 25-100 MG TAB PO SCH ×3 (06:52→18:24)
[2016-07-09] MEDS: PIPERACILLIN/TAZOBACTAM SOD 3.375 GM in D5W MINI-BAG PLUS 50 ML IV SCH ×3 (06:52→18:24)
[2016-07-09 06:55] LABS: ANION GAP 12 MEQ/L (8-16); BLOOD UREA NITROGEN 8 MG/DL (7-18); CALCIUM LEVEL 7.7 MG/DL (8.8-10.2); CARBON DIOXIDE LEVEL 22 MEQ/L (21-32); CHLORIDE LEVEL 107 MEQ/L (98-107); GLOMERULAR FILTRATION RATE > 60.0 (>49); GLUCOSE, FASTING 124 MG/DL (80-110); MAGNESIUM LEVEL 1.8 MG/DL (1.8-2.4); POTASSIUM SERUM 3.3 MEQ/L (3.5-5.1); SODIUM LEVEL 141 MEQ/L (136-145)
--- NOTE | 2016-07-09 07:20 | REPUSA ---
CLINICAL HISTORY: Desating. COMMENTS: Correlation i made with CT dated 07/07/16. The cardiac silhouette is enlarged. There is evidence for pulmonary venous congestion compatible with CHF. Bilateral lowe lobe consolidation is compatible with pneumonia, worse on the right. There is no pleur al effusion. Bony structures appear normal. IMPRESSION: 1. Enlarged cardiac silhouette. 2. Pulmonary venous congestion compatible with CHF. 3. Bilateral lowe lobe consolidation is compatible with pneumonia, worse on the right. There is no p leural effusion. Thank you for your kind referral of this patient.
[2016-07-09] MEDS: ALBUTEROL SULFATE 2.5 MG/0.5 ML INH NEB SOLN INH SCH ×4 (07:25→20:33)
[2016-07-09] MEDS: PARoxetine 20 MG TAB PO SCH (09:00)
[2016-07-09] MEDS: guaiFENesin ER 600 MG TAB PO SCH ×2 (09:00→20:10)
[2016-07-09] MEDS: ENOXAPARIN 40 MG/0.4 ML SYRINGE (J1650) SC SCH ×2 (09:00→09:37)
[2016-07-09] MEDS: TAMSULOSIN 0.4 MG CAP PO SCH (09:00)
[2016-07-09] MEDS: POTASSIUM CHLORIDE INJ 40 MEQ in NS 0.45% 1,000 ML IV SCH ×3 (09:00→11:00)
--- NOTE | 2016-07-09 10:42 | IPNPDOC ---
Assessment/Plan Date Seen The patient was seen on 07/09/16. Problems Problems: (1) Acute respiratory failure with hypoxemia Status: Acute Problem Text: due to aspiration pneumonia will continue with zosyn to vancomycin if worsens will need intubation and cannot use BIPAP with aspiration. (2) MRSA bacteremia Status: Acute Problem Text: Pt's B/C from 07/05 showed growth of MRSA in one tube and no growth in the other. Pt has a reported temperature of 101F on 07/05/16 but in the ED, his temperature was 97.3 orally. His attending ambulatory care reports that he spits out oral thermometers so we will measure his temperature during his stay with alternative methods. At this time, we are unsure of the source of pt's MRSA. Pt' s peg tube site appears mildly irritated but not infected, his pressure injury on his buttock is clean, dry, and the overlying skin is intact, and his urine is without LE or bacteria. We will get a Transthoracic Echocardiogram continue vancomycin. (3) Hypernatremia Status: Acute Problem Text: Pt's sodium was 148 on ED arrival, suspect it is due to hemoconcentration secondary to dehydration. Possibly not getting enough free water through PEG tube. Will get repeat BMP in the mornings and monitor after rehydration. will increase free water through PEG tube to 600 cc in 24 hours. (4) Aspiration pneumonia Status: Acute Problem Text: will start zosyn and vancomycin, move to icu (5) Diarrhea Status: Acute Problem Text: Pt's stool is described as progressing from loose and watery to foul-smelling mustard-yellow. Suspect it is due to peg tube feedings but will check for C. difficile since the pt has been on multiple antibiotics. will change peg tube feeds to a low residual Optimental (6) Neck mass Status: Acute Problem Text: A mass was palpated on left side of neck during physical exam. Will ultrasound. (7) Anemia Status: Acute Problem Text: Pt's hgb today is 10.5. Going over the pt's past history, it appears his baseline hovers around a hbg of 10-11. Will transfuse if necessary otherwise, we will monitor his h/h through CBC in AM labs. (8) DM2 (diabetes mellitus, type 2) Status: Chronic Problem Text: Will stop all PO anti-diabetic medications upon hospitalization and put pt on sliding scale of insulin. (9) Dyslipidemia Status: Chronic Problem Text: Continue atorvastatin (10) BPH (benign prostatic hyperplasia) Status: Chronic Problem Text: Continue home medications for BPH (11) Down's syndrome Status: Chronic (12) Parkinsons disease Status: Chronic Problem Text: Continue current medications (13) Asthma Status: Chronic Problem Text: Continue albuterol PRN and nebulizer 4 times a day (14) DVT prophylaxis Status: Chronic Problem Text: Lovenox, TEDs, SEQs Plan / VTE VTE Prophylaxis Ordered?: Yes Plan IVF: Initiate Diet: Continue Current (Will continue with tube feeding) Activity: Continue Current Subjective Review of Systems CC/HPI The patient is a 61-year-old male admitted with a reason for visit of Mrsa Bacteremia. Events since last encounter extremely sob of breath overnight requiring 15 Liters oxygen with resp rate of 35, cxr with bilateral aspiration will move pateint to icu , feeding stopped Objective Physical Examination General Exam: Positive: Alert, Cooperative, No Acute Distress Eye Exam: Positive: Conjunctiva & lids normal, EOMI, PERRLA, Negative: Ptosis, Sclera icteric ENT Exam: Positive: Atraumatic, Nares Patent, Pharynx Normal, Tongue Midline, Negative: Mucous membr. moist/pink, Pharyngeal Edema Neck Exam: Positive: Other (Firm smooth nodule approx 1cm felt on the left that rises with swallowing. ), Supple, Negative: JVD Chest Exam: Positive: Clear to auscultation, Normal air movement, Wheezing ( Originating from upper airway) Heart Exam: Positive: Murmurs (Systolic), Normal S1, Normal S2, Rate Normal, Regular Rhythm Abdomen Exam: Positive: Mass (Liver edge palpated at RUQ), Normal bowel sounds , Other (Peg tube placement site is mildly erythematous with minimal serous drainage surrounding the tube. No evidence of acute infectious process, this is likely from irritation.), Soft, Tenderness (Tender to palpation on RUQ) Male Exam: Positive: Normal Genital Exam Extremity Exam: Positive: Normal pulses, Negative: Clubbing, Cyanosis, Edema Skin Exam: Positive: Nl turgor and temperature, Other skin issue (Mild reddening of skin over bilateral upper buttocks without any evidence of skin breakdown. ), Negative: Breakdown, Rash Vital Signs/I&O Vital Signs Date Time Temp Pulse Resp B/P Pulse Ox O2 Delivery O2 Flow Rate FiO2 1/29/17 07:25 Venturi Mask 31 07/09/16 07:00 110 92 0.8 07/09/16 06:00 100.0 32 118/59 I&O- Last 24 Hours up to 6 AM 07/09/16 06:00 Intake Total 1125 ml Balance 1125 ml Laboratory Data Labs 24H Laboratory Tests 2 07/08/16 11:51: Bedside Glucose (Misc Panel) 139H 07/08/16 17:26: Bedside Glucose (Misc Panel) 99 07/08/16 23:06: Vancomycin Level Trough 14.0 07/09/16 00:00: Bedside Glucose (Misc Panel) 128H 07/09/16 05:55: Arterial Blood pH 7.437, Arterial Blood Partial Pressure CO2 33.5L, Arterial Blood Partial Pressure O2 63.2L, Arterial Blood Total CO2 23.1, Arterial Blood HCO3 22.1, Arterial Blood Base Excess -1.5, Arterial Blood Oxygen Saturation 92.2L, Blood Gas Bicarbonate Standard 23.1 07/09/16 06:05: Anion Gap 12, White Blood Count 9.8, Red Blood Count 3.45L, Hemoglobin 10.4L, Hematocrit 31.7L, Mean Corpuscular Volume 92.0, Mean Corpuscular Hemoglobin 30.2 , Mean Corpuscular Hemoglobin Concent 32.8, Red Cell Distribution Width 16.6H, Platelet Count 147L, Neutrophils (%) (Auto) 86.2H, Lymphocytes (%) (Auto) 8.7L, Monocytes (%) (Auto) 3.1, Eosinophils (%) (Auto) 0.5, Basophils (%) (Auto) 0.6, Neutrophils # (Auto) 8.4H, Lymphocytes # (Auto) 0.9L, Monocytes # (Auto) 0.3, Eosinophils # (Auto) 0.0, Basophils # (Auto) 0.0, Blood Urea Nitrogen 8, Creatinine 0.50L, Sodium Level 141, Potassium Level 3.3L, Chloride Level 107, Carbon Dioxide Level 22, Calcium Level 7.7L, Glomerular Filtration Rate > 60.0, Large Unclassified Cells # 0.1, Large Unclassified Cells % 1.0, Magnesium Level 1.8 07/09/16 06:41: Bedside Glucose (Misc Panel) 128H CBC/BMP Laboratory Tests 07/09/16 06:05 Calcium Level 7.7 L, Red Blood Count 3.45 L, Mean Corpuscular Volume 92.0, Mean Corpuscular Hemoglobin 30.2, Mean Corpuscular Hemoglobin Concent 32.8, Red Cell Distribution Width 16.6 H, Neutrophils (%) (Auto) 86.2 H, Lymphocytes (%) (Auto ) 8.7 L, Monocytes (%) (Auto) 3.1, Eosinophils (%) (Auto) 0.5, Basophils (%) ( Auto) 0.6, Neutrophils # (Auto) 8.4 H, Lymphocytes # (Auto) 0.9 L, Monocytes # ( Auto) 0.3, Eosinophils # (Auto) 0.0, Basophils # (Auto) 0.0 FSBS Laboratory Tests Test 07/08/16 11:51 07/08/16 17:26 07/09/16 00:00 07/09/16 06:41 Range/Units Bedside Glucose (Misc Panel) 139 99 128 128 80-115 MG/DL Microbiology Microbiology 07/07/16 Blood Culture - Preliminary, Resulted No growth after 24 hours . All specim... 07/07/16 Blood Culture - Preliminary, Resulted No growth after 24 hours . All specim... 07/08/16 Gastrointestinal Tract Panel (PCR) - Final, Complete 07/09/16 MRSA Screen, Received Pending 07/07/16 Urine Culture - Final, Complete NANDINI VILLAVICENCIO MD Jul 09, 2016 10:42
[2016-07-09] MEDS ORDERED: POTASSIUM CHLORIDE INJ 40 MEQ in NS 0.45% 1,000 ML IV SCH (11:00)
[2016-07-09] MEDS: BUDESONIDE 0.5 MG/2 ML INHALATION SUSPENSION INH SCH ×2 (11:11→20:33)
[2016-07-09] MEDS ORDERED: SODIUM CHLORIDE 0.9% 1000 ML IV ONE ×2 (17:30→20:45)
[2016-07-09] MEDS: ACETAMINOPHEN TAB 650MG DOSE (2X325MG) PO PRN (17:43)
[2016-07-09] MEDS: ATORVASTATIN 20 MG TAB PO SCH (20:06)
[2016-07-09] MEDS: OLANZapine 5 MG TAB PO SCH (20:06)
[2016-07-10] VITALS (31 sets, daily range): BP systolic 82–133; BP diastolic 45–70; O2SAT 97–99
[2016-07-10] MEDS: PIPERACILLIN/TAZOBACTAM SOD 3.375 GM in D5W MINI-BAG PLUS 50 ML IV SCH ×4 (00:13→19:13)
[2016-07-10] MEDS: VANCOMYCIN HCL 1,000 MG, VIAL MATE ADAPTER 1 EACH in D5W 250 ML IV SCH ×2 (00:13→11:49)
--- NOTE | 2016-07-10 01:22 | ECGEPIP ---
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 Heart rate is now faster otherwise no significant changes. Left bundle branch block is not new Electronically Signed On 07-10-2016 1:22:24 EST by Lambert Garcia
[2016-07-10] MEDS: ALBUTEROL SULFATE 2.5 MG/0.5 ML INH NEB SOLN INH SCH ×6 (04:14→23:39)
[2016-07-10 05:02] LABS: BASO % 0.4 % (0.0-1.0); EOS # 0.2 K/mm3 (0.0-0.50); EOS % 1.7 % (0.0-3.0); LARGE UNSTAINED CELL # 0.1 K/mm3 (0.0-0.4); LYMPH # 0.7 K/mm3 (1.5-4.5); LYMPH % 8.1 % (24.0-44.0); MEAN CORPUSCULAR HEMOGLOBIN 29.7 pg (27.0-33.0); MEAN CORPUSCULAR HGB CONC 32.1 g/dl (32.0-36.5); MEAN CORPUSCULAR VOLUME 92.5 fl (80.0-96.0); MONO # 0.3 K/mm3 (0.0-0.8); NEUTROPHILS # 7.5 K/mm3 (1.8-7.7); NEUTROPHILS % 85.8 % (36.0-66.0); PLATELET COUNT, AUTOMATED 129 k/mm3 (150-450); RED CELL DISTRIBUTION WIDTH 16.5 % (11.5-14.5); WHITE BLOOD COUNT 8.8 K/mm3 (4.0-10.0)
[2016-07-10 05:16] LABS: ANION GAP 7 MEQ/L (8-16); BLOOD UREA NITROGEN 8 MG/DL (7-18); CALCIUM LEVEL 7.5 MG/DL (8.8-10.2); CARBON DIOXIDE LEVEL 28 MEQ/L (21-32); CHLORIDE LEVEL 106 MEQ/L (98-107); CREATININE FOR GFR 0.78 MG/DL (0.70-1.30); GLUCOSE, FASTING 155 MG/DL (80-110); MAGNESIUM LEVEL 1.7 MG/DL (1.8-2.4); POTASSIUM SERUM 3.5 MEQ/L (3.5-5.1); SODIUM LEVEL 141 MEQ/L (136-145)
[2016-07-10 05:25] LABS: GLOMERULAR FILTRATION RATE > 60.0 (>49)
[2016-07-10] MEDS: HumaLOG INSULIN (NovoLOG) PER UNIT SC SCH ×3 (06:00→18:00)
[2016-07-10] MEDS: SINEMET 25-100 MG TAB PO SCH ×3 (06:13→19:14)
[2016-07-10] MEDS: POTASSIUM CHLORIDE INJ 40 MEQ in NS 0.45% 1,000 ML IV SCH ×3 (06:13→22:47)
[2016-07-10] MEDS ORDERED: MAG SULF 1GM/100ML (MAG RUN) 1 GM in APPROPRIATE DILUENT 1 EA IV ONE (06:30)
[2016-07-10] MEDS: BUDESONIDE 0.5 MG/2 ML INHALATION SUSPENSION INH SCH ×2 (07:57→20:57)
--- NOTE | 2016-07-10 08:29 | REP ---
CT of the chest without IV contrast: Comparisons 06/04/2016. There are bilateral infiltrates in the right upper lobe, right lower lobe and left lower lobe. These have decreased size from the comparison study. There are no pleural effusions. Cardiomegaly is again noted, unchanged. There is no mediastinal lymph node enlargement. The study is insensitive for hilar lymph node enlargement in the absence of IV contrast. No axillary lymph node enlargement. The unenhanced thoracic aorta is unremarkable. There is no pericardial effusion. The visualized upper abdominal contents are unremarkable. Impression: Bilateral infiltrates as described. These have decreased in size from the prior study. Signed by Tirso Encinas MD 07/08/2016 08:01 A
--- NOTE | 2016-07-10 08:29 | REP ---
Ultrasound of the palpable lump in the soft tissues of the neck on the left.: There is a complex heterogeneous mass corresponding to the palpable measuring 3.1 x 1.5 x 3.0 cm. There is a lymph node adjacent to the mass. measuring 0.6 cm short axis, normal size. Impression: The palpable lump corresponds to a 3.1 cm solid mass. Signed by Tirso Encinas MD 07/08/2016 08:13 A
--- NOTE | 2016-07-10 08:33 | CR ---
DATE OF CONSULTATION: 07/09/2016 REASON FOR CONSULTATION: Evaluate percutaneous endoscopic gastrostomy (PEG) tube site. HISTORY OF PRESENT ILLNESS: The patient is a 61-year-old male with Down syndrome, currently lives at [facility] He has had issues with dysphagia and aspiration pneumonia over the past few months with multiple hospital admissions. Just around Christmastime I placed a PEG tube in him to help with his dysphagia. According to his caregivers, he has not been having anything by mouth since then. He was discharged from the hospital about 2 weeks ago. He has had a couple other admissions since then with persistent diarrhea and being more lethargic than normal. He was in the emergency room last week and he was examined. Everything appeared to be fine. They did run some blood cultures and sent him home. However, they called him back two days later because one of his blood cultures came back positive for methicillin resistant Staphylococcus aureus (MRSA), so he came back to the hospital on 07/07/2016. He is still having coughing and not really producing; however, his chest x-ray and chest CT are persistently showing bilateral lower lobe infiltrates, more on the right than the left, that are just not clearing up. There is concern for likely silent aspiration since he is not taking anything orally anymore. No signs of any drainage around the PEG tube site other than what looked like tube feeds and he has had one or two normal bowel movements in the past couple weeks. Otherwise, it has all been loose and liquidy. PAST MEDICAL HISTORY Down syndrome, asthma, benign prostatic hypertrophy (BPH), diabetes, hypercholesterolemia, Parkinson's, bilateral inguinal hernias, recurrent aspiration pneumonia, sleep apnea. PAST SURGICAL HISTORY: PEG placement. FAMILY HISTORY: Noncontributory. ALLERGIES: METFORMIN SOCIAL HISTORY: Negative. MEDICATIONS: Please see medical record. REVIEW OF SYSTEMS: Unable to obtain. The patient is nonverbal. PHYSICAL EXAMINATION: GENERAL: Patient is awake, alert. VITAL SIGNS: Temperature 100.3, pulse 109, respirations 24, blood pressure 124/79, pulse oximetry 90% on Venti mask. HEENT: Pupils are equally round react to light accommodation. HEART: S1, S2. Regular rate and rhythm. LUNGS: Clear to auscultation bilaterally. ABDOMEN: Soft, nontender, nondistended. PEG tube in place with just clear to light shelton drainage around the PEG tube site. No signs of stool. No signs of infection. EXTREMITIES: No clubbing, cyanosis or edema. LABORATORY DATA: White count 9.8, hemoglobin 10.4, platelets 147. Potassium 3.3, magnesium 1.8. CT abdomen and pelvis shows no change in bibasilar lung infiltrates compared to study from 07/05/2016. There are small bilateral inguinal hernias containing fat. Large amount of fecal material scattered throughout the distended colon. No evidence of small bowel obstruction. No free air. No free fluid. ASSESSMENT AND PLAN: The patient is a 61-year-old male status post PEG placement for dysphagia and aspiration pneumonia. Currently, presented from call back for a positive methicillin resistant Staphylococcus aureus (MRSA) on a blood culture. He has had repeat blood culture since then that have both been negative. He is continuing to have infiltrates on chest x-ray that are not clearing up, as well as signs of CHF. It is unlikely that the PEG tube site is causing the source of this infection. He has had multiple CTs over the last month, none of which have shown any signs of concern for the PEG tube site. There are no signs of any drainage or from around the PEG tube site. The patient could be continuing to silently aspirate. My recommendation at this time would be to have interventional radiology replace this PEG tube with a gastrojejunostomy tube that way he can be fed beyond the pylorus.
--- NOTE | 2016-07-10 08:33 | CCN ---
DATE: 07/09/2016 START TIME: 1014 STOP TIME: 1059 I was asked to attend Baldemar Jones here in the intensive care unit (ICU). The patient was examined and chart was reviewed. I have spoken at length with the primary service. In essence, this is a 61-year-old gentleman who is a resident of [facility] . He has had multiple hospitalizations for difficulties with chronic aspiration resulting in pneumonia. He had the placement of a percutaneous endoscopic gastrostomy (PEG) in the not too distant past. He has been tolerating feeds reasonably well, reportedly. As of late, he has been noticed to have some abdominal discomfort to the point where he doubles over at [facility]. He had a fever. He was noted to be more short of breath. The patient is historically nonverbal. Reportedly, he had one set of blood cultures positive for methicillin resistant Staphylococcus aureus (MRSA). He was admitted for that reason. He was on Zosyn and vancomycin currently. While on the general medical/surgical floor, he was noted to have increased oxygen requirements. He was tachypneic this morning and transferred to the intensive care unit (ICU). Initially, saturation 88 to 89% on 35% Ventimask. He was changed to an aerosol face mask of 50%, saturation is now 96 to 98%. On examination, he is mildly tachycardic with a heart rate of 126, blood pressure varies from 102 to 118. Currently, his respiratory rate is about 24 to 26 without any accessory muscle use. Although he is nonverbal, he does voice displeasure with motion. His exam shows his pupils to react, sclerae are clear. Membranes are moist. Trachea is in the midline. No convincing jugular venous distention (JVD). I do not appreciate a mass noted on his initial history and physical. Chest shows symmetric expansion. There are some scattered rhonchi that do not clear completely with cough. There are some crackles at the right base and rhonchi are a little more pronounced in that area. Heart examination is tachycardic, generally regular. Peripheral pulses diminished but palpable. No obvious edema. Abdomen shows the PEG site to be only mildly erythematous. There is a mild degree of drainage, somewhat yellowish. He does have active bowel sounds, but does voice displeasure with palpation, especially the right upper quadrant. No convincing rebound. No obvious organomegaly or masses. Extremities show no cyanosis or clubbing. Neurologically, he does move his extremities, but, as a baseline, is nonverbal. Chest x-ray done earlier today does show increased right lower lobe infiltrate compared to admission. Sodium 141, potassium 3.3, chloride 107, CO2 of 22, BUN 8, creatinine 0.5, glucose 124. White blood cell count 9.8, hemoglobin 10.4, and platelet count 147,000. Differential shows 86% segmented neutrophils, no bands. Blood gas done this morning with his change in status done on an unknown oxygen flow shows a pH of 7.437, PCO2 of 33.5, and a PO2 of 63.2. Lactate done on admission was 0.5. Maximum temperature (t-max) since admission 100.0.F The most pressing problems requiring my presence at the bedside are hypoxemic respiratory failure, acute on chronic. Chronic aspiration, Down's syndrome, recent PEG tube with abdominal discomfort, question of bacteremia, history of obstructive sleep apnea. At this point, I am in agreement with his broad spectrum antimicrobials. Repeat blood cultures are negative. Unfortunately, PEG tube alone will not prevent continued aspiration, it may need to be converted to one of the longer percutaneous tubes that actually stays in the jejunum. This could actually be done by interventional radiology. At this point, he is requiring higher flow supplemental oxygen, but currently has remained above 90%. He does not have respiratory acidosis. Noninvasive support is relatively contraindicated in view of his aspiration, but certainly can be used as a stopgap measure if needed in hopes of avoiding endotracheal intubation. We will assist him with cough efficiency as best as we can. He remains a FULL CODE. I left the bedside at 1059 hours. 45 minutes of critical care time delivered at the bedside, not including procedures. Overall, he remains critically ill and his prognosis is guarded at best. HEIDI
[2016-07-10] MEDS: PARoxetine 20 MG TAB PO SCH ×2 (08:37→11:48)
[2016-07-10] MEDS: TAMSULOSIN 0.4 MG CAP PO SCH ×2 (08:39→11:48)
[2016-07-10] MEDS: guaiFENesin ER 600 MG TAB PO SCH ×2 (08:39→21:00)
[2016-07-10] MEDS: ENOXAPARIN 40 MG/0.4 ML SYRINGE (J1650) SC SCH (11:48)
--- NOTE | 2016-07-10 12:52 | IPNPDOC ---
Assessment/Plan Date Seen The patient was seen on 07/10/16. Problems Problems: (1) Advance directive infomation pending evaluation Status: Acute Problem Text: Pt is a [facility] patient with developmental disability spoke with patients legal guardian he wishes the patient to be DNR and DNI no central lines, no vasopressors, no ventilation , no intubation paperwork in process (2) Aspiration pneumonia Status: Acute Problem Text: on Zosyn and Vancomycin has a PEG in place, tube feed was held will continue with IVF. Will consider changing to to jejunostomy tube if patients blood pressure and oxygenation permits. (3) Acute respiratory failure with hypoxemia Status: Acute Problem Text: due to aspiration pneumonia will continue with zosyn to vancomycin if worsens will need intubation and cannot use BIPAP with aspiration. (4) MRSA bacteremia Status: Acute Problem Text: Pt's B/C from 07/05 showed growth of MRSA in one tube and no growth in the other. Pt has a reported temperature of 101F on 07/05/16 but in the ED, his temperature was 97.3 orally. His animal care taker reports that he spits out oral thermometers so we will measure his temperature during his stay with alternative methods. At this time, we are unsure of the source of pt's MRSA. Pt' s peg tube site appears mildly irritated but not infected, his pressure injury on his buttock is clean, dry, and the overlying skin is intact, and his urine is without LE or bacteria. We will get a Transthoracic Echocardiogram continue vancomycin. (5) Hypernatremia Status: Resolved Problem Text: Pt's sodium was 148 on ED arrival, suspect it is due to hemoconcentration secondary to dehydration. Possibly not getting enough free water through PEG tube. Will get repeat BMP in the mornings and monitor after rehydration. will increase free water through PEG tube to 600 cc in 24 hours. (6) Diarrhea Status: Acute Problem Text: Pt's stool is described as progressing from loose and watery to foul-smelling mustard-yellow. Suspect it is due to peg tube feedings but will check for C. difficile since the pt has been on multiple antibiotics. will change peg tube feeds to a low residual Optimental (7) Neck mass Status: Acute Problem Text: A mass was palpated on left side of neck during physical exam. Will ultrasound. (8) Anemia Status: Acute Problem Text: Pt's hgb today is 10.5. Going over the pt's past history, it appears his baseline hovers around a hbg of 10-11. Will transfuse if necessary otherwise, we will monitor his h/h through CBC in AM labs. (9) DM2 (diabetes mellitus, type 2) Status: Chronic Problem Text: Will stop all PO anti-diabetic medications upon hospitalization and put pt on sliding scale of insulin. (10) Dyslipidemia Status: Chronic Problem Text: Continue atorvastatin (11) BPH (benign prostatic hyperplasia) Status: Chronic Problem Text: Continue home medications for BPH (12) Down's syndrome Status: Chronic (13) Parkinsons disease Status: Chronic Problem Text: Continue current medications (14) Asthma Status: Chronic Problem Text: Continue albuterol PRN and nebulizer 4 times a day (15) DVT prophylaxis Status: Chronic Problem Text: Lovenox, TEDs, SEQs Plan / VTE VTE Prophylaxis Ordered?: Yes Plan / Urinary Catheter Reason for insertion/continuin: Critical Pt monitoring Plan IVF: Initiate Diet: Continue Current (Will continue with tube feeding) Activity: Continue Current Subjective Review of Systems CC/HPI The patient is a 61-year-old male admitted with a reason for visit of Mrsa Bacteremia. Events since last encounter remains critical with intermittently low blood pressures. requiring 50% o2, spoke with legal guardian he would like to make him DNR no cpr no shocks no central line no vasopressors. No intubation or ventilation. Paperwork has been started for 2 physicians to be signed and faxed to the appropriate department . Objective Physical Examination General Exam: Positive: Alert, Cooperative, No Acute Distress Eye Exam: Positive: Conjunctiva & lids normal, EOMI, PERRLA, Negative: Ptosis, Sclera icteric ENT Exam: Positive: Atraumatic, Nares Patent, Pharynx Normal, Tongue Midline, Negative: Mucous membr. moist/pink, Pharyngeal Edema Neck Exam: Positive: Other (Firm smooth nodule approx 1cm felt on the left that rises with swallowing. ), Supple, Negative: JVD Chest Exam: Positive: Clear to auscultation, Normal air movement, Wheezing ( Originating from upper airway) Heart Exam: Positive: Murmurs (Systolic), Normal S1, Normal S2, Rate Normal, Regular Rhythm Abdomen Exam: Positive: Mass (Liver edge palpated at RUQ), Normal bowel sounds , Other (Peg tube placement site is mildly erythematous with minimal serous drainage surrounding the tube. No evidence of acute infectious process, this is likely from irritation.), Soft, Tenderness (Tender to palpation on RUQ) Male Exam: Positive: Normal Genital Exam Extremity Exam: Positive: Normal pulses, Negative: Clubbing, Cyanosis, Edema Skin Exam: Positive: Nl turgor and temperature, Other skin issue (Mild reddening of skin over bilateral upper buttocks without any evidence of skin breakdown. ), Negative: Breakdown, Rash Vital Signs/I&O Vital Signs Date Time Temp Pulse Resp B/P Pulse Ox O2 Delivery O2 Flow Rate FiO2 07/10/16 06:14 85 89/48 94 Venturi Mask 50 07/10/16 04:25 15.0 07/10/16 04:00 97.0 20 I&O- Last 24 Hours up to 6 AM 07/10/16 06:00 Intake Total 3890 ml Output Total 445 ml Balance 3445 ml Laboratory Data Labs 24H Laboratory Tests 2 07/09/16 17:49: Bedside Glucose (Misc Panel) 148H 07/09/16 23:19: Bedside Glucose (Misc Panel) 117H 07/10/16 04:38: Anion Gap 7L, White Blood Count 8.8, Red Blood Count 3.19L, Hemoglobin 9.5L, Hematocrit 29.5L, Mean Corpuscular Volume 92.5, Mean Corpuscular Hemoglobin 29.7 , Mean Corpuscular Hemoglobin Concent 32.1, Red Cell Distribution Width 16.5H, Platelet Count 129L, Neutrophils (%) (Auto) 85.8H, Lymphocytes (%) (Auto) 8.1L, Monocytes (%) (Auto) 3.0, Eosinophils (%) (Auto) 1.7, Basophils (%) (Auto) 0.4, Neutrophils # (Auto) 7.5, Lymphocytes # (Auto) 0.7L, Monocytes # (Auto) 0.3, Eosinophils # (Auto) 0.2, Basophils # (Auto) 0.0, Blood Urea Nitrogen 8, Creatinine 0.78#, Sodium Level 141, Potassium Level 3.5, Chloride Level 106, Carbon Dioxide Level 28, Calcium Level 7.5L, Glomerular Filtration Rate > 60.0, Large Unclassified Cells # 0.1, Large Unclassified Cells % 1.0, Magnesium Level 1.7L 07/10/16 11:29: Bedside Glucose (Misc Panel) 139H CBC/BMP Laboratory Tests 07/10/16 04:38 Calcium Level 7.5 L, Red Blood Count 3.19 L, Mean Corpuscular Volume 92.5, Mean Corpuscular Hemoglobin 29.7, Mean Corpuscular Hemoglobin Concent 32.1, Red Cell Distribution Width 16.5 H, Neutrophils (%) (Auto) 85.8 H, Lymphocytes (%) (Auto ) 8.1 L, Monocytes (%) (Auto) 3.0, Eosinophils (%) (Auto) 1.7, Basophils (%) ( Auto) 0.4, Neutrophils # (Auto) 7.5, Lymphocytes # (Auto) 0.7 L, Monocytes # ( Auto) 0.3, Eosinophils # (Auto) 0.2, Basophils # (Auto) 0.0 FSBS Laboratory Tests Test 07/09/16 17:49 07/09/16 23:19 07/10/16 11:29 Range/Units Bedside Glucose (Misc Panel) 148 117 139 80-115 MG/DL Microbiology Microbiology 07/07/16 Blood Culture - Preliminary, Resulted No Growth after 48 hours. All Specime... 07/07/16 Blood Culture - Preliminary, Resulted No Growth after 48 hours. All Specime... 07/08/16 Gastrointestinal Tract Panel (PCR) - Final, Complete 07/09/16 MRSA Screen - Final, Complete Staph.aureus Methicillin Resis 07/07/16 Urine Culture - Final, Complete NANDINI VILLAVICENCIO MD Jul 10, 2016 12:52
--- NOTE | 2016-07-10 13:08 | ECHO ---
DATE OF SERVICE: 07/09/2016 PATIENT LOCATION: Room 3210 REASON FOR ECHOCARDIOGRAM: Bacteremia. 2D MEASUREMENTS: IVS: 1.1 cm LV: 4.5 cm LVPW: 1.1 cm LA: 4.2 cm Aorta: 3.7 cm 2D COMMENTS: 1. Technically limited study due to poor acoustic window. 2. The left ventricular size is normal, but left ventricular systolic function appeared to be mildly to moderately depressed, estimated at 40%. The anterior septum seemed to be markedly hypokinetic. 3. Mildly enlarged left atrium. Normal right atrium and right ventricle noted in limited views. 4. Borderline enlarged aortic root. 5. Trace to small pericardial effusion noted posteriorly, no evidence of cardiac tamponade. 6. The aortic valve, and the mitral valve as well as the tricuspid valve appear to be normal. 7. The inferior vena cava was not well visualized. 8. Patient was noted to be mildly tachycardiac during the test with heart rate that varied between 110-120 beats per minute. IMPRESSION: As above. This was compared with last echocardiogram report on 05/20/2016. Left ventricular systolic pressure seems to be now lower. There is also trace to small pericardial effusion. Aortic regurgitation seems to be the same severity. This study was technically limited due to poor acoustic window. MTDD
[2016-07-10] MEDS: ACETAMINOPHEN TAB 650MG DOSE (2X325MG) PO PRN (14:25)
--- NOTE | 2016-07-10 16:28 | EDDOCDS ---
Physician Documentation [facility] Name: Baldemar Jones Age: 61 yrs Sex: Male : 1955 Arrival Date: 07/07/2016 Time: 12:46 Bed 19 Private MD: Gerri Aguiar DO. Disposition: 07/07/16 17:46 Hospitalization ordered by Freda Britt for Inpatient Admission. Preliminary diagnosis is Bacteremia - MRSA. - Bed requested for 4 [place]. - Status is Inpatient Admission. pml - Condition is Stable. - Problem is new. - Symptoms are unchanged. Historical: - Allergies: no known allergies; - Home Meds: 1. albuterol sulfate 2.5 mg /3 mL (0.083 %) Inhl nebu 3 mL 4 times per day 2. atorvastatin 40 mg oral tab 1 tab once daily 3. Depakene 250 mg Oral cap twice a day 4. Diabetic Tussin DM 10-100 mg/5 mL oral syrp every 6 hours 5. Flomax 0.4 mg Oral cp24 1 cap once daily 6. Lipitor 40 mg Oral tab once daily 7. Miralax 17 gram/dose Oral powd once daily 8. oxygen 2 liters [place] nightly 9. paroxetine HCl 20 mg Oral tab once daily 10. Senna-S 8.6-50 mg oral tab prn 11. Sinemet 25-100 mg Oral tab 1 tab 3 times per day 12. Tylenol 325 mg Oral tab 2 tabs every 6 hours 13. Zyprexa 5 mg Oral tab 1 tab once daily - PMHx: Asthma; BPH; Diabetes - NIDDM: controlled; Down's Syndrome; Hypercholesterolemia; Parkinson's Disease; - PSHx: J-tube placement; Abdominal surgery; - Social history: Smoking status: Patient states was never smoker of tobacco. No barriers to communication noted, The patient speaks fluent Scottish, Speaks appropriately for age. - Family history: Not pertinent. - : The pt / caregiver states he / she is not on anticoagulants. Home medication list is obtained from the caregiver. - Exposure Risk Screening:: None identified. Vital Signs: 07/07 12:48 BP 102 / 51; Pulse 105; Resp 18 S; Temp 97.3(O); Pulse Ox 96% on R/A; Weight 54.43 kg / gr2 120 lbs (R); Height 5 ft. 4 in. (162.56 cm) (R); Pain 3/10; 18:28 BP 120 / 58 (auto/); js13 18:28 Pulse 84 MON; Resp 16; Pulse Ox 94% on R/A; js13 18:58 BP 100 / 50 (auto/); lf1 18:58 Pulse 84 MON; Pulse Ox 95% ; lf1 19:13 BP 110 / 58 (auto/); lf1 19:13 Pulse 86 MON; Pulse Ox 96% ; lf1 19:28 BP 106 / 56 (auto/); lf1 19:28 Pulse 80 MON; Pulse Ox 94% ; lf1 19:43 BP 110 / 54 (auto/); lf1 19:43 Pulse 82 MON; Pulse Ox 95% ; lf1 19:58 Pulse 80 MON; Pulse Ox 96% ; lf1 19:58 BP 110 / 56 (auto/); lf1 20:13 BP 131 / 58 (auto/); lf1 20:13 Pulse 80 MON; Pulse Ox 96% ; lf1 21:49 Pulse 80 MON; Resp 20; Temp 98.9(R); Pulse Ox 95% ; lf1 22:40 BP 115 / 58 (auto/); tm5 22:41 Pulse 84 MON; Resp 20 S; Pulse Ox 96% on R/A; tm5 07/08 15:25 BP 134 / 65; Pulse 94; Resp 20; Temp 96.5(T); Pulse Ox 96% on R/A; pml 07/07 12:48 Body Mass Index 20.60 (54.43 kg, 162.56 cm) gr2 07/07 12:48 WEIGH MAY NOT BE ACCURATE gr2 MDM: 13:51 -Blood Culture (Adults Only), peripheral from different site, or from device/port/PICC sd1 etc. if present ordered. 13:51 NS 0.9% (Sepsis- hypotension or lactate >4mmol/L, 30ml/kg) 30 ml/kg IV at bolus once; sd1 Give in 500mL aliquots, assess for rales after [id number] ordered. 13:51 -Blood Culture Ordered. EDMS 13:51 Lactic Acid ([place] tube on ice) Ordered. EDMS 13:53 CBC with Diff Ordered. EDMS 13:53 MED Profile Ordered. EDMS 13:53 CT ABD & PELVIS: No Contrast Ordered. EDMS 13:54 Urine Culture Ordered. EDMS 13:56 LIVER PROFILE Ordered. EDMS 13:56 VALPROIC ACID (DEPAKOTE) Ordered. EDMS 14:02 -Blood Culture (Adults Only), peripheral from different site, or from device/port/PICC lbd etc. if present complete. 14:05 BLOOD CULTURES Ordered. EDMS 14:30 Financial registration complete. mm15 14:36 Straight cath ordered. js13 14:43 [facility] Payment Agreement was scanned into Floq and attached to record. mm15 14:52 URINALYSIS MANUAL Ordered. EDMS 15:00 CBC with Diff Reviewed. sd1 15:00 MED Profile Reviewed. sd1 15:00 LIVER PROFILE Reviewed. sd1 15:00 VALPROIC ACID (DEPAKOTE) Reviewed. sd1 15:00 URINALYSIS MANUAL Reviewed. sd1 15:00 Lactic Acid ([place] tube on ice) Reviewed. sd1 16:31 URINALYSIS MANUAL Reviewed. sd1 16:31 MICROSCOPIC, URINE Reviewed. sd1 16:31 CT ABD & PELVIS: No Contrast Reviewed. sd1 16:33 vancomycin (loading dose for pt. wt. 50-59kg) 1250 mg IVPB once ordered. sd1 17:05 BED REQUEST+ADM ordered. EDMS 17:46 [employer] Manager/Pulse Ox/q 15 min VS ordered. sd1 17:49 ECG WITH READING ER PHYS+CARDIAG ordered. EDMS 20:44 Admission / Observation Status ordered. EDMS 20:44 ECHOCARD,DOPPLER/COLOR FLOW ordered. EDMS 20:44 CT Chest without contrast Ordered. EDMS 20:45 LACTIC ACID LEVEL, LACTATE Ordered. EDMS 20:45 BASIC METABOLIC PROFILE Ordered. EDMS 20:45 CBC WITH DIFFERENTIAL Ordered. EDMS 20:45 BASIC METABOLIC PROFILE Ordered. EDMS 20:45 MAGNESIUM LEVEL Ordered. EDMS 20:54 GASTROINTESTINAL (GI) PANEL Ordered. EDMS 21:41 BASIC METABOLIC PROFILE Ordered. EDMS 07/08 01:10 VANCOMYCIN LEVEL TROUGH Ordered. EDMS 06:27 Thyroid, ST head+neck US Ordered. EDMS 07:41 ECG/EKG was scanned into Floq and attached to record. gb 08:28 Fingerstick Blood Sugar Ordered. EDMS 12:00 Fingerstick Blood Sugar Ordered. EDMS Administered Medications: 01/27 14:35 Drug: NS 0.9% (Sepsis- hypotension or lactate >4mmol/L, 30ml/kg) 1632.9 ml [sodium js13 chloride 0.9 % intravenous solution] Route: IV; Rate: bolus; Site: right forearm; 15:08 Follow up: IV Status: LS clear no rales.; IV Intake: 500ml js13 17:04 Follow up: IV Intake: 500ml ; No rales upon ausculation js13 18:36 Follow up: IV Status: No rales noted upon exam; IV Intake: 500ml js13 18:59 Follow up: IV Status: Completed infusion; IV Intake: 100ml lf1 17:24 CANCELLED (Duplicate Order): NS 0.9% (Sepsis- hypotension or lactate >4mmol/L, 30ml/kg) sd1 30 ml/kg IV at bolus once; Give in 500mL aliquots, assess for rales after each, 1500cc 17:30 Drug: vancomycin (loading dose for pt. wt. 50-59kg) 1250 mg [vancomycin 1,000 mg [facility] intravenous injection] Route: IVPB; Site: right forearm; Signatures: Dispatcher [employer] EDMS Gali Salmeron MD MD sd1 Hawa Marie, Nutrition And Dietetics Instructor Unit lbd Barbie Bucio, Jing Hayden,Jeanne Haji RN, RN RN pml Sullivan, Jennifer, RN RN js13 [place] Cristina Bruce RN eugene Mederos, Jolene PASCAL lf1 The chart was reviewed and I authenticate all verbal orders and agree with the evaluation and treatment provided.Corrections: (The following items were deleted from the chart) 13:54 13:53 VALPROIC ACID (DEPAKOTE)+LAB ordered. EDMS EDMS 13:56 13:53 LIVER PROFILE+LAB ordered. EDMS EDMS 14:52 13:54 URINALYSIS+LAB ordered. EDMS EDMS 17:24 17:04 NS 0.9% (Sepsis- hypotension or lactate >4mmol/L, 30ml/kg) 30 ml/kg IV at bolus sd1 once; Give in 500mL aliquots, assess for rales after each, 1500cc ordered. sd1 20:54 20:52 GASTROINTESTINAL (GI) PANEL ordered. EDMS EDMS Attachments: 14:43 [facility] Payment Agreement mm15 07/08 07:41 ECG/EKG gb Chart Complete MTDD
[2016-07-10] MEDS: ATORVASTATIN 20 MG TAB PO SCH (22:25)
[2016-07-10] MEDS: OLANZapine 5 MG TAB PO SCH (22:25)
[2016-07-11] VITALS (15 sets, daily range): BP systolic 94–124; BP diastolic 48–60; O2SAT 97–98
[2016-07-11] MEDS: VANCOMYCIN HCL 1,000 MG, VIAL MATE ADAPTER 1 EACH in D5W 250 ML IV SCH ×2 (00:39→11:54)
[2016-07-11] MEDS: PIPERACILLIN/TAZOBACTAM SOD 3.375 GM in D5W MINI-BAG PLUS 50 ML IV SCH ×4 (02:22→18:15)
[2016-07-11] MEDS: ALBUTEROL SULFATE 2.5 MG/0.5 ML INH NEB SOLN INH SCH ×6 (04:54→23:26)
[2016-07-11 05:27] LABS: ANION GAP 6 MEQ/L (8-16); BLOOD UREA NITROGEN 6 MG/DL (7-18); CALCIUM LEVEL 7.6 MG/DL (8.8-10.2); CARBON DIOXIDE LEVEL 28 MEQ/L (21-32); CHLORIDE LEVEL 105 MEQ/L (98-107); CREATININE FOR GFR 0.65 MG/DL (0.70-1.30); GLOMERULAR FILTRATION RATE > 60.0 (>49); GLUCOSE, FASTING 150 MG/DL (80-110); MAGNESIUM LEVEL 1.9 MG/DL (1.8-2.4); SODIUM LEVEL 139 MEQ/L (136-145)
[2016-07-11 05:59] LABS: BASO # 0.1 K/mm3 (0.0-0.2); BASO % 0.9 % (0.0-1.0); EOS # 0.1 K/mm3 (0.0-0.50); EOS % 1.5 % (0.0-3.0); LARGE UNSTAINED CELL # 0.1 K/mm3 (0.0-0.4); LARGE UNSTAINED CELL % 1.3 % (0.0-4.0); LYMPH # 0.9 K/mm3 (1.5-4.5); LYMPH % 9.8 % (24.0-44.0); MEAN CORPUSCULAR HEMOGLOBIN 29.6 pg (27.0-33.0); MEAN CORPUSCULAR HGB CONC 32.4 g/dl (32.0-36.5); MEAN CORPUSCULAR VOLUME 91.5 fl (80.0-96.0); MONO # 0.4 K/mm3 (0.0-0.8); MONO % 4.8 % (0.0-5.0); NEUTROPHILS # 6.6 K/mm3 (1.8-7.7); NEUTROPHILS % 81.8 % (36.0-66.0); PLATELET COUNT, AUTOMATED 128 k/mm3 (150-450); RED CELL DISTRIBUTION WIDTH 17.3 % (11.5-14.5)
[2016-07-11] MEDS: HumaLOG INSULIN (NovoLOG) PER UNIT SC SCH ×4 (06:00→18:00)
[2016-07-11] MEDS: SINEMET 25-100 MG TAB PO SCH ×3 (06:11→18:15)
[2016-07-11] MEDS: BUDESONIDE 0.5 MG/2 ML INHALATION SUSPENSION INH SCH ×2 (08:04→20:59)
[2016-07-11] MEDS: guaiFENesin ER 600 MG TAB PO SCH ×2 (09:00→20:36)
[2016-07-11] MEDS: ENOXAPARIN 40 MG/0.4 ML SYRINGE (J1650) SC SCH (09:27)
[2016-07-11] MEDS: POTASSIUM CHLORIDE INJ 40 MEQ in NS 0.45% 1,000 ML IV SCH ×2 (11:17→19:11)
[2016-07-11] MEDS: ACETAMINOPHEN TAB 650MG DOSE (2X325MG) PO PRN ×2 (16:47→17:17)
[2016-07-11] MEDS: OLANZapine 5 MG TAB PO SCH (20:38)
[2016-07-11] MEDS: ATORVASTATIN 20 MG TAB PO SCH (20:38)
[2016-07-12] VITALS (9 sets, daily range): BP systolic 114–150; BP diastolic 56–68; O2SAT 96
[2016-07-12] MEDS: VANCOMYCIN HCL 1,000 MG, VIAL MATE ADAPTER 1 EACH in D5W 250 ML IV SCH ×3 (00:06→23:54)
[2016-07-12] MEDS: POTASSIUM CHLORIDE INJ 40 MEQ in NS 0.45% 1,000 ML IV SCH ×2 (02:11→17:05)
[2016-07-12] MEDS: PIPERACILLIN/TAZOBACTAM SOD 3.375 GM in D5W MINI-BAG PLUS 50 ML IV SCH ×4 (02:17→18:45)
[2016-07-12] MEDS: ALBUTEROL SULFATE 2.5 MG/0.5 ML INH NEB SOLN INH SCH ×6 (02:19→23:32)
[2016-07-12 05:24] LABS: BASO % 0.7 % (0.0-1.0); EOS # 0.1 K/mm3 (0.0-0.50); EOS % 2.8 % (0.0-3.0); LARGE UNSTAINED CELL # 0.1 K/mm3 (0.0-0.4); LARGE UNSTAINED CELL % 2.2 % (0.0-4.0); LYMPH # 0.7 K/mm3 (1.5-4.5); LYMPH % 19.5 % (24.0-44.0); MEAN CORPUSCULAR HEMOGLOBIN 29.2 pg (27.0-33.0); MEAN CORPUSCULAR HGB CONC 31.2 g/dl (32.0-36.5); MEAN CORPUSCULAR VOLUME 93.7 fl (80.0-96.0); MONO # 0.2 K/mm3 (0.0-0.8); MONO % 4.3 % (0.0-5.0); NEUTROPHILS # 2.7 K/mm3 (1.8-7.7); NEUTROPHILS % 70.5 % (36.0-66.0); PLATELET COUNT, AUTOMATED 137 k/mm3 (150-450); RED CELL DISTRIBUTION WIDTH 16.2 % (11.5-14.5); WHITE BLOOD COUNT 3.8 K/mm3 (4.0-10.0)
[2016-07-12 05:41] LABS: ANION GAP 7 MEQ/L (8-16); BLOOD UREA NITROGEN 4 MG/DL (7-18); CALCIUM LEVEL 7.7 MG/DL (8.8-10.2); CARBON DIOXIDE LEVEL 27 MEQ/L (21-32); CHLORIDE LEVEL 106 MEQ/L (98-107); CREATININE FOR GFR 0.72 MG/DL (0.70-1.30); GLOMERULAR FILTRATION RATE > 60.0 (>49); GLUCOSE, FASTING 140 MG/DL (80-110); MAGNESIUM LEVEL 1.8 MG/DL (1.8-2.4); POTASSIUM SERUM 4.2 MEQ/L (3.5-5.1); SODIUM LEVEL 140 MEQ/L (136-145)
[2016-07-12] MEDS: HumaLOG INSULIN (NovoLOG) PER UNIT SC SCH ×4 (05:52→17:33)
[2016-07-12] MEDS: SINEMET 25-100 MG TAB PO SCH ×3 (06:16→18:45)
[2016-07-12] MEDS: TAMSULOSIN 0.4 MG CAP PO SCH (08:11)
[2016-07-12] MEDS: BUDESONIDE 0.5 MG/2 ML INHALATION SUSPENSION INH SCH ×2 (08:13→19:59)
[2016-07-12] MEDS: guaiFENesin ER 600 MG TAB PO SCH (08:13)
[2016-07-12] MEDS: ENOXAPARIN 40 MG/0.4 ML SYRINGE (J1650) SC SCH (08:21)
[2016-07-12] MEDS: PARoxetine 20 MG TAB PO SCH (08:21)
--- NOTE | 2016-07-12 13:16 | IPNPDOC ---
Assessment/Plan Date Seen The patient was seen on 07/12/16. Problems Problems: (1) Advance directive infomation pending evaluation Status: Acute Problem Text: Pt is a [facility] patient with developmental disability legal guardian he wishes the patient to be DNR and DNI no central lines, no vasopressors, no ventilation , no intubation paperwork in process PFS consulted (2) Aspiration pneumonia Status: Acute Problem Text: on Zosyn and Vancomycin has a PEG in place, tube feed was held will continue with IVF. Dr corral will be consulted for G Jtube conversion (3) Acute respiratory failure with hypoxemia Status: Resolved Problem Text: (4) MRSA bacteremia Status: Acute Problem Text: * Pt's B/C from 07/05 showed growth of MRSA in one tube and no growth in the other. (5) Hypernatremia Status: Resolved (6) Diarrhea Status: Resolved (7) Neck mass Status: Acute Problem Text: A mass was palpated on left side of neck during physical exam. Will ultrasound. (8) Anemia Status: Acute Problem Text: Pt's hgb today is 10.5. Going over the pt's past history, it appears his baseline hovers around a hbg of 10-11. Will transfuse if necessary otherwise, we will monitor his h/h through CBC in AM labs. (9) DM2 (diabetes mellitus, type 2) Status: Chronic (10) Dyslipidemia Status: Chronic Problem Text: Continue atorvastatin (11) BPH (benign prostatic hyperplasia) Status: Chronic Problem Text: Continue home medications for BPH (12) Down's syndrome Status: Chronic (13) Parkinsons disease Status: Chronic Problem Text: Continue current medications (14) Asthma Status: Chronic Problem Text: Continue albuterol PRN and nebulizer 4 times a day (15) DVT prophylaxis Status: Chronic Problem Text: Lovenox, TEDs, SEQs Plan / VTE VTE Prophylaxis Ordered?: Yes Plan / Urinary Catheter Reason for insertion/continuin: Critical Pt monitoring Plan IVF: Initiate Diet: Continue Current (Will continue with tube feeding) Activity: Continue Current Subjective Review of Systems CC/HPI The patient is a 61-year-old male admitted with a reason for visit of Mrsa Bacteremia. General: Reports: ROS Unobtainable Objective Physical Examination General Exam: Positive: Alert, Cooperative, No Acute Distress Eye Exam: Positive: Conjunctiva & lids normal, EOMI, PERRLA, Negative: Ptosis, Sclera icteric ENT Exam: Positive: Atraumatic, Nares Patent, Pharynx Normal, Tongue Midline, Negative: Mucous membr. moist/pink, Pharyngeal Edema Neck Exam: Positive: Other (Firm smooth nodule approx 1cm felt on the left that rises with swallowing. ), Supple, Negative: JVD Chest Exam: Positive: Clear to auscultation, Normal air movement, Wheezing ( Originating from upper airway) Heart Exam: Positive: Murmurs (Systolic), Normal S1, Normal S2, Rate Normal, Regular Rhythm Abdomen Exam: Positive: Mass (Liver edge palpated at RUQ), Normal bowel sounds , Other (Peg tube placement site is mildly erythematous with minimal serous drainage surrounding the tube. No evidence of acute infectious process, this is likely from irritation.), Soft, Tenderness (Tender to palpation on RUQ) Male Exam: Positive: Normal Genital Exam Extremity Exam: Positive: Normal pulses, Negative: Clubbing, Cyanosis, Edema Skin Exam: Positive: Nl turgor and temperature, Other skin issue (Mild reddening of skin over bilateral upper buttocks without any evidence of skin breakdown. ), Negative: Breakdown, Rash Vital Signs/I&O Vital Signs Date Time Temp Pulse Resp B/P Pulse Ox O2 Delivery O2 Flow Rate FiO2 07/12/16 12:00 97.9 87 21 119/56 97 Nasal Cannula 2.0 07/12/16 04:00 28 I&O- Last 24 Hours up to 6 AM 07/12/16 06:00 Intake Total 3180 ml Output Total 2720 ml Balance 460 ml Laboratory Data Labs 24H Laboratory Tests 2 07/11/16 17:42: Bedside Glucose (Misc Panel) 130H 07/12/16 00:08: Bedside Glucose (Misc Panel) 121H 07/12/16 05:08: Anion Gap 7L, White Blood Count 3.8L, Red Blood Count 3.69L, Hemoglobin 10.8L, Hematocrit 34.6L, Mean Corpuscular Volume 93.7, Mean Corpuscular Hemoglobin 29.2 , Mean Corpuscular Hemoglobin Concent 31.2L, Red Cell Distribution Width 16.2H, Platelet Count 137L, Neutrophils (%) (Auto) 70.5H, Lymphocytes (%) (Auto) 19.5L , Monocytes (%) (Auto) 4.3, Eosinophils (%) (Auto) 2.8, Basophils (%) (Auto) 0.7 , Neutrophils # (Auto) 2.7, Lymphocytes # (Auto) 0.7L, Monocytes # (Auto) 0.2, Eosinophils # (Auto) 0.1, Basophils # (Auto) 0.0, Blood Urea Nitrogen 4L, Creatinine 0.72, Sodium Level 140, Potassium Level 4.2, Chloride Level 106, Carbon Dioxide Level 27, Calcium Level 7.7L, Glomerular Filtration Rate > 60.0, Large Unclassified Cells # 0.1, Large Unclassified Cells % 2.2, Magnesium Level 1.8 CBC/BMP Laboratory Tests 07/12/16 05:08 Calcium Level 7.7 L, Red Blood Count 3.69 L, Mean Corpuscular Volume 93.7, Mean Corpuscular Hemoglobin 29.2, Mean Corpuscular Hemoglobin Concent 31.2 L, Red Cell Distribution Width 16.2 H, Neutrophils (%) (Auto) 70.5 H, Lymphocytes (%) ( Auto) 19.5 L, Monocytes (%) (Auto) 4.3, Eosinophils (%) (Auto) 2.8, Basophils (% ) (Auto) 0.7, Neutrophils # (Auto) 2.7, Lymphocytes # (Auto) 0.7 L, Monocytes # (Auto) 0.2, Eosinophils # (Auto) 0.1, Basophils # (Auto) 0.0 FSBS Laboratory Tests Test 07/11/16 17:42 07/12/16 00:08 Range/Units Bedside Glucose (Misc Panel) 130 121 80-115 MG/DL Microbiology Microbiology 07/07/16 Blood Culture - Preliminary, Resulted No Growth after 72 hours. All specime... 07/07/16 Blood Culture - Preliminary, Resulted No Growth after 72 hours. All specime... 07/08/16 Gastrointestinal Tract Panel (PCR) - Final, Complete 07/09/16 MRSA Screen - Final, Complete Staph.aureus Methicillin Resis 07/07/16 Urine Culture - Final, Complete YOVANNY REAVES DO Jul 12, 2016 13:16
--- NOTE | 2016-07-12 13:30 | IPNPDOC ---
Assessment/Plan Date Seen The patient was seen on 07/11/16. Problems Problems: (1) Advance directive infomation pending evaluation Status: Acute Problem Text: Pt is a [facility] patient with developmental disability paperwork in process (2) Aspiration pneumonia Status: Acute Problem Text: on Zosyn and Vancomycin has a PEG in place, tube feed was held will continue with IVF. Will consider changing to to jejunostomy tube if patients blood pressure and oxygenation permits. (3) Acute respiratory failure with hypoxemia Status: Resolved Problem Text: due to aspiration pneumonia will continue with zosyn to vancomycin if worsens will need intubation and cannot use BIPAP with aspiration. (4) MRSA bacteremia Status: Acute Problem Text: Pt's B/C from 07/05 showed growth of MRSA in one tube and no growth in the other. Pt has a reported temperature of 101F on 07/05/16 (5) Hypernatremia Status: Resolved Problem Text: Pt's sodium was 148 on ED arrival, (6) Diarrhea Status: Resolved Problem Text: Pt's stool is described as progressing from loose and watery to foul-smelling mustard-yellow. Suspect it is due to peg tube feedings but will check for C. difficile since the pt has been on multiple antibiotics. will change peg tube feeds to a low residual Optimental (7) Neck mass Status: Acute Problem Text: A mass was palpated on left side of neck during physical exam. Will ultrasound. (8) Anemia Status: Acute Problem Text: Pt's hgb today is 10.5. Going over the pt's past history, it appears his baseline hovers around a hbg of 10-11. Will transfuse if necessary otherwise, we will monitor his h/h through CBC in AM labs. (9) DM2 (diabetes mellitus, type 2) Status: Chronic Problem Text: Will stop all PO anti-diabetic medications upon hospitalization and put pt on sliding scale of insulin. (10) Dyslipidemia Status: Chronic Problem Text: Continue atorvastatin (11) BPH (benign prostatic hyperplasia) Status: Chronic Problem Text: Continue home medications for BPH (12) Down's syndrome Status: Chronic (13) Parkinsons disease Status: Chronic Problem Text: Continue current medications (14) Asthma Status: Chronic Problem Text: Continue albuterol PRN and nebulizer 4 times a day (15) DVT prophylaxis Status: Chronic Problem Text: Lovenox, TEDs, SEQs Plan / VTE VTE Prophylaxis Ordered?: Yes Plan / Urinary Catheter Reason for insertion/continuin: Critical Pt monitoring Plan IVF: Initiate Diet: Continue Current (Will continue with tube feeding) Activity: Continue Current Subjective Review of Systems CC/HPI The patient is a 61-year-old male admitted with a reason for visit of Mrsa Bacteremia. General: Reports: ROS Unobtainable Objective Physical Examination General Exam: Positive: Alert, Cooperative, No Acute Distress Eye Exam: Positive: Conjunctiva & lids normal, EOMI, PERRLA, Negative: Ptosis, Sclera icteric ENT Exam: Positive: Atraumatic, Nares Patent, Pharynx Normal, Tongue Midline, Negative: Mucous membr. moist/pink, Pharyngeal Edema Neck Exam: Positive: Other (Firm smooth nodule approx 1cm felt on the left that rises with swallowing. ), Supple, Negative: JVD Chest Exam: Positive: Clear to auscultation, Normal air movement, Wheezing ( Originating from upper airway) Heart Exam: Positive: Murmurs (Systolic), Normal S1, Normal S2, Rate Normal, Regular Rhythm Abdomen Exam: Positive: Mass (Liver edge palpated at RUQ), Normal bowel sounds , Other (Peg tube placement site is mildly erythematous with minimal serous drainage surrounding the tube. No evidence of acute infectious process, this is likely from irritation.), Soft, Tenderness (Tender to palpation on RUQ) Male Exam: Positive: Normal Genital Exam Extremity Exam: Positive: Normal pulses, Negative: Clubbing, Cyanosis, Edema Skin Exam: Positive: Nl turgor and temperature, Other skin issue (Mild reddening of skin over bilateral upper buttocks without any evidence of skin breakdown. ), Negative: Breakdown, Rash Vital Signs/I&O Vital Signs Date Time Temp Pulse Resp B/P Pulse Ox O2 Delivery O2 Flow Rate FiO2 07/11/16 20:51 97 Aerosol Mask 5.0 28 07/11/16 20:00 96.7 74 22 114/55 I&O- Last 24 Hours up to 6 AM 07/11/16 06:00 Intake Total 2960 ml Output Total 1210 ml Balance 1750 ml Laboratory Data Labs 24H Laboratory Tests 2 07/11/16 00:44: Bedside Glucose (Misc Panel) 124H 07/11/16 04:56: Anion Gap 6L, White Blood Count 8.0, Red Blood Count 3.10L, Hemoglobin 9.2L, Hematocrit 28.3L, Mean Corpuscular Volume 91.5, Mean Corpuscular Hemoglobin 29.6 , Mean Corpuscular Hemoglobin Concent 32.4, Red Cell Distribution Width 17.3H, Platelet Count 128L, Neutrophils (%) (Auto) 81.8H, Lymphocytes (%) (Auto) 9.8L, Monocytes (%) (Auto) 4.8, Eosinophils (%) (Auto) 1.5, Basophils (%) (Auto) 0.9, Neutrophils # (Auto) 6.6, Lymphocytes # (Auto) 0.9L, Monocytes # (Auto) 0.4, Eosinophils # (Auto) 0.1, Basophils # (Auto) 0.1, Blood Urea Nitrogen 6L, Creatinine 0.65L, Sodium Level 139, Potassium Level 4.0, Chloride Level 105, Carbon Dioxide Level 28, Calcium Level 7.6L, Glomerular Filtration Rate > 60.0, Large Unclassified Cells # 0.1, Large Unclassified Cells % 1.3, Magnesium Level 1.9 07/11/16 06:14: Bedside Glucose (Misc Panel) 144H 07/11/16 10:55: Vancomycin Level Trough 15.3 07/11/16 11:45: Bedside Glucose (Misc Panel) 132H 07/11/16 17:42: Bedside Glucose (Misc Panel) 130H CBC/BMP Laboratory Tests 07/11/16 04:56 Calcium Level 7.6 L, Red Blood Count 3.10 L, Mean Corpuscular Volume 91.5, Mean Corpuscular Hemoglobin 29.6, Mean Corpuscular Hemoglobin Concent 32.4, Red Cell Distribution Width 17.3 H, Neutrophils (%) (Auto) 81.8 H, Lymphocytes (%) (Auto ) 9.8 L, Monocytes (%) (Auto) 4.8, Eosinophils (%) (Auto) 1.5, Basophils (%) ( Auto) 0.9, Neutrophils # (Auto) 6.6, Lymphocytes # (Auto) 0.9 L, Monocytes # ( Auto) 0.4, Eosinophils # (Auto) 0.1, Basophils # (Auto) 0.1 FSBS Laboratory Tests Test 07/11/16 00:44 07/11/16 06:14 07/11/16 11:45 07/11/16 17:42 Range/Units Bedside Glucose (Misc Panel) 124 144 132 130 80-115 MG/DL Microbiology Microbiology 07/07/16 Blood Culture - Preliminary, Resulted No Growth after 72 hours. All specime... 07/07/16 Blood Culture - Preliminary, Resulted No Growth after 72 hours. All specime... 07/08/16 Gastrointestinal Tract Panel (PCR) - Final, Complete 07/09/16 MRSA Screen - Final, Complete Staph.aureus Methicillin Resis 07/07/16 Urine Culture - Final, Complete YOVANNY REAVES DO Jul 11, 2016 22:34
--- NOTE | 2016-07-12 14:03 | EDDOCDS ---
Nurse's Notes [facility] Name: Bari Servin Age: 61 yrs Sex: Male : 1955 Arrival Date: 07/07/2016 Time: 12:46 Bed 19 Private MD: Gerri Aguiar DO. Diagnosis: Bacteremia-MRSA Presentation: 07/07 12:53 Presenting complaint: Patient states: Kleber Franco called and told to come over. MRSA jo3 in blood. Adult Sepsis Screening: The patient does not have new or worsening altered mentation. Patient's respiratory rate is less than 22. Systolic blood pressure is greater than 100. Patient has a qSOFA score of 0- Negative Sepsis Screen. Suicide/Homicide risk assessment- the patient denies having any suicidal and/or homicidal ideations and does not present with any other emotional, behavioral or mental health complaints. Status: Patient is not a director of social services or dependent. Transition of care: patient was not received from another setting of care. 12:53 Acuity: TANESHA Level 3 jo3 12:53 Method Of Arrival: Walkin/Carried/Asstd jo3 Triage Assessment: 12:56 General: Appears ill, Behavior is appropriate for age, cooperative. HIV screening NA jo3 for this visit. The patient is triaged at the bedside. See Assessment in Nurses Notes section of ED record. Neurological: Level of Consciousness is awake. Cardiovascular: No deficits noted. Respiratory: Airway is patent Respiratory effort is even, unlabored. Derm: Skin is intact, Skin is pale. Historical: - Allergies: no known allergies; - Home Meds: 1. albuterol sulfate 2.5 mg /3 mL (0.083 %) Inhl nebu 3 mL 4 times per day 2. atorvastatin 40 mg oral tab 1 tab once daily 3. Depakene 250 mg Oral cap twice a day 4. Diabetic Tussin DM 10-100 mg/5 mL oral syrp every 6 hours 5. Flomax 0.4 mg Oral cp24 1 cap once daily 6. Lipitor 40 mg Oral tab once daily 7. Miralax 17 gram/dose Oral powd once daily 8. oxygen 2 liters NC nightly 9. paroxetine HCl 20 mg Oral tab once daily 10. Senna-S 8.6-50 mg oral tab prn 11. Sinemet 25-100 mg Oral tab 1 tab 3 times per day 12. Tylenol 325 mg Oral tab 2 tabs every 6 hours 13. Zyprexa 5 mg Oral tab 1 tab once daily - PMHx: Asthma; BPH; Diabetes - NIDDM: controlled; Down's Syndrome; Hypercholesterolemia; Parkinson's Disease; - PSHx: J-tube placement; Abdominal surgery; - Social history: Smoking status: Patient states was never smoker of tobacco. No barriers to communication noted, The patient speaks fluent Thai, Speaks appropriately for age. - Family history: Not pertinent. - : The pt / caregiver states he / she is not on anticoagulants. Home medication list is obtained from the caregiver. - Exposure Risk Screening:: None identified. Screenin:02 Infection Control. gr2 14:36 Screening information is obtained from the caregiver. Fall risk: At risk due to age, js13 gait disturbance, immobility. Assistance ADL's: Requires assistance with. Abuse/DV Screen: The patient / caregiver reports he/she is: not in a situation that causes fear, pain or injury. Nutritional screening: No deficits noted. Advance Directives: There is no active DNR order. home support is adequate. Assessment: 14:36 General: Appears in no apparent distress, comfortable, Behavior is appropriate for age, js13 cooperative. Pain: Denies pain. Neurological: No deficits noted. Level of Consciousness is awake, alert. Cardiovascular: Chest pain is denied. Respiratory: Airway is patent Respiratory effort is even, unlabored, Respiratory pattern is regular, symmetrical, Breath sounds are clear. GI: PEG tube in place, Site clean. Derm: Skin is pink, warm & dry. 15:23 General: Appears in no apparent distress, comfortable, Behavior is appropriate for age, js13 cooperative. Pain: Denies pain. Neurological: No deficits noted. Level of Consciousness is awake, alert. Cardiovascular: Chest pain is denied. Respiratory: Airway is patent Respiratory effort is even, unlabored, Respiratory pattern is regular, symmetrical, Breath sounds are clear. GI: PEG tube in place, Site clean. Derm: Skin is pink, warm & dry. 17:10 General: Appears in no apparent distress, comfortable, to be sleeping. Respiratory: js13 Airway is patent Respiratory effort is even, unlabored, Respiratory pattern is regular, symmetrical. Derm: Skin is pink, warm & dry. 17:11 Adult Sepsis Screening: Accepted Exclusions- Patient is already in the Sepsis Protocol. js13 18:15 General: Appears in no apparent distress, comfortable, Behavior is appropriate for age, js13 cooperative. Pain: Denies pain. Neurological: Level of Consciousness is awake, alert. Cardiovascular: Chest pain is denied. Cardiovascular: Rhythm is sinus tachycardia. Respiratory: Airway is patent Respiratory effort is even, unlabored. Derm: Skin is pink, warm & dry. 19:45 General: Appears comfortable, Behavior is cooperative. Pain: Unable to use pain scale. lf1 Does not appear to understand pain scale. Respiratory: Respiratory effort is even, unlabored. GI: PEG tube in place, Site clean. Site reddened. : Incontinent. Derm: Skin is pale. 21:00 General: Appears ill, Behavior is [facility] staff at bedside. Neurological: Level of lf1 Consciousness is awake, Nonverbal. Respiratory: Respiratory effort is even, unlabored. GI: PEG tube in place, clamped. Site clean. Site reddened. site cleaned, drainage sponge changed. Derm: stage two breakdown noted in crease at coccyx. 22:09 Adult Sepsis Screening: The patient does not have new or worsening altered mentation. lf1 Patient's respiratory rate is less than 22. Systolic blood pressure is greater than 100. Patient has a qSOFA score of 0- Negative Sepsis Screen. General: Appears in no apparent distress, ill, Behavior is quiet. Neurological: Level of Consciousness is awake, alert. Respiratory: Respiratory effort is even, unlabored. GI: PEG tube in place, clamped. Derm: Skin is pale. 22:11 General: Report to anaya Nurse. lf1 07/08 07:45 General: Appears in no apparent distress, Behavior is cooperative. Pain: Unable to use pml pain scale. Does not appear to understand pain scale. Patient appears quiet. Neurological: Level of Consciousness is awake, alert. Cardiovascular: Capillary refill < 3 seconds Rhythm is sinus rhythm No ectopy. Respiratory: Airway is patent Respiratory effort is even, unlabored. GI: PEG tube in place, with tube feeding infusing. Site clean. Derm: Skin is pink, warm & dry. 09:26 General: residual of tube feed less than 30ml - continued following med admins as per pml orders. JR staff at bedside. 12:01 General: Appears in no apparent distress, comfortable, Behavior is appropriate for age, pml cooperative. Pain: Unable to use pain scale. Does not appear to understand pain scale. Patient appears quiet. Neurological: Level of Consciousness is awake, alert. Cardiovascular: Capillary refill < 3 seconds Rhythm is sinus rhythm No ectopy. Respiratory: Airway is patent Respiratory effort is even, unlabored. GI: PEG tube with tube feeding infusing. Site clean. Derm: Skin is pink, warm & dry. 15:17 General: Appears in no apparent distress, comfortable, Behavior is appropriate for age, pml cooperative. Pain: Unable to use pain scale. Does not appear to understand pain scale. Patient appears quiet. Neurological: Level of Consciousness is awake, alert. Cardiovascular: Capillary refill < 3 seconds. Respiratory: Airway is patent Respiratory effort is even, unlabored. GI: Abdomen is distended, PEG tube in place, with tube feeding infusing. Derm: Skin is pink, warm & dry. Vital Signs: 07/07 12:48 BP 102 / 51; Pulse 105; Resp 18 S; Temp 97.3(O); Pulse Ox 96% on R/A; Weight 54.43 kg gr2 (R); Height 5 ft. 4 in. (162.56 cm) (R); Pain 08/18; 18:28 BP 120 / 58 (auto/); js13 18:28 Pulse 84 MON; Resp 16; Pulse Ox 94% on R/A; js13 18:58 BP 100 / 50 (auto/); lf1 18:58 Pulse 84 MON; Pulse Ox 95% ; lf1 19:13 BP 110 / 58 (auto/); lf1 19:13 Pulse 86 MON; Pulse Ox 96% ; lf1 19:28 BP 106 / 56 (auto/); lf1 19:28 Pulse 80 MON; Pulse Ox 94% ; lf1 19:43 BP 110 / 54 (auto/); lf1 19:43 Pulse 82 MON; Pulse Ox 95% ; lf1 19:58 Pulse 80 MON; Pulse Ox 96% ; lf1 19:58 BP 110 / 56 (auto/); lf1 20:13 BP 131 / 58 (auto/); lf1 20:13 Pulse 80 MON; Pulse Ox 96% ; lf1 21:49 Pulse 80 MON; Resp 20; Temp 98.9(R); Pulse Ox 95% ; lf1 22:40 BP 115 / 58 (auto/); tm5 22:41 Pulse 84 MON; Resp 20 S; Pulse Ox 96% on R/A; tm5 07/08 15:25 BP 134 / 65; Pulse 94; Resp 20; Temp 96.5(T); Pulse Ox 96% on R/A; pml 07/07 12:48 Body Mass Index 20.60 (54.43 kg, 162.56 cm) gr2 07/07 12:48 WEIGH MAY NOT BE ACCURATE gr2 Vitals: 12:48 Log In Time: July 07, 2016 at 12:48. gr2 ED Course: 12:48 Patient visited by Ana Gold. gr2 12:48 Gerri Aguiar is Private Physician. gr2 12:48 Patient moved to Waiting gr2 12:50 Patient visited by Ana Gold. gr2 12:50 Patient moved to Pre RCE gr2 12:55 Triage Initiated jo3 12:57 Patient visited by Jing Pisano,GWYN. jo3 12:58 Jing Benitez,GWYN is Primary Nurse. jo3 12:58 Patient moved to 13 jo3 13:26 Gali Salmeron MD is Attending Physician. sd1 13:37 Patient visited by Gali Salmeron MD. sd1 14:35 BLOOD CULTURES Sent. js13 14:35 VALPROIC ACID (DEPAKOTE) Sent. js13 14:35 LIVER PROFILE Sent. js13 14:35 Urine Culture Sent. js13 14:35 MED Profile Sent. js13 14:35 Inserted saline lock: 18 gauge in right forearm and blood collected. The patient js13 tolerated the procedure well. No procedures done that require assistance. Labs drawn. (by ED staff). Sent per order to lab. Labs/Blood culture drawn Urine collected. straight cath specimen. Urine specimen sent to lab. 14:36 The patient / caregiver is instructed regarding the plan of care and ED course. Placed js13 in gown. Call light in reach. Side rails up X2. Adult w/ patient. 14:37 Patient visited by Jing Benitez,GWYN. js13 14:43 [facility]LY [facility] Payment Agreement was scanned into [employer] and attached to record. mm15 15:04 Patient name changed from Bari\S\\S\Robert\S\ to Bari\S\ \S\Cole Camp. EDMS 15:24 Patient visited by Jing Benitez RN. js13 15:25 CT ABD & PELVIS: No Contrast Returned. EDMS 16:39 Patient visited by Isamar Friend. nb2 17:07 CT ABD & PELVIS: No Contrast Returned. EDMS 17:11 Patient visited by Jing Benitez RN. js13 17:46 Britt Freda is Hospitalizing Provider. sd1 18:16 Patient visited by Jing Benitez RN. js13 18:36 EKG done. (by ED staff). Reviewed by Gali Salmeron MD. jrd 18:37 Patient visited by Sergio Pike PCA. jrd 19:43 EKG-ADULT Returned. EDMS 19:45 Repositioned patient. Cleaned of incontinence. lf1 19:47 Patient visited by Jolene Mederos,GWYN. lf1 20:45 Cleaned of incontinence. [facility] reports changing attends with loose stool. lf1 20:53 Patient moved to Admit Hold kmg1 21:49 Patient visited by Jolene Mederos,GWYN. lf1 21:53 Repositioned patient. Cleaned of incontinence. lf1 22:11 Patient visited by Jolene Mederos,GWYN. lf1 22:45 Primary Nurse role handed off by Jing Benitez RN [facility] 23:30 Patient moved to 19 tm5 07/08 00:25 Patient moved to Admit Hold kmg1 06:56 Patient moved to Ultrasound en 07:21 Patient moved to 19 en 07:41 ECG/EKG was scanned into [employer] and attached to record. gb 09:27 Patient visited by Jeanne Noble RN. pml 12:02 Patient visited by Jeanne Noble,GWYN. pml Administered Medications: 07/07 14:35 Drug: NS 0.9% (Sepsis- hypotension or lactate >4mmol/L, 30ml/kg) 1632.9 ml [sodium js13 chloride 0.9 % intravenous solution] Route: IV; Rate: bolus; Site: right forearm; 15:08 Follow up: IV Status: LS clear no rales.; IV Intake: 500ml js13 17:04 Follow up: IV Intake: 500ml ; No rales upon ausculation js13 18:36 Follow up: IV Status: No rales noted upon exam; IV Intake: 500ml js13 18:59 Follow up: IV Status: Completed infusion; IV Intake: 100ml lf1 17:24 CANCELLED (Duplicate Order): NS 0.9% (Sepsis- hypotension or lactate >4mmol/L, 30ml/kg) sd1 30 ml/kg IV at bolus once; Give in 500mL aliquots, assess for rales after each, 1500cc 17:30 Drug: vancomycin (loading dose for pt. wt. 50-59kg) 1250 mg [vancomycin 1,000 mg bcj intravenous injection] Route: IVPB; Site: right forearm; Intake: 15:08 IV: 500.00ml; Total: 500.00ml. js13 17:04 IV: 500.00ml; Total: 1000.00ml. js13 18:36 IV: 500.00ml; Total: 1500.00ml. js13 18:59 IV: 100.00ml; Total: 1600.00ml. lf1 Order Results: Lab Order: -Blood Culture; SPEC'M 07/07/16 14:25 Test: BLOOD CULTURE; Value: No growth after 24 hours . All specimens observed; Status: F Test: BLOOD CULTURE; Value: for 7 days. Results final at that time.; Status: F Lab Order: Lactic Acid ([place] tube on ice); SPEC'M 07/07/16 14:25 Test: LACTIC ACID LEVEL, LACTATE; Value: 1.0; Range: 0.4-2.0; Units: MMOL/L; Status: F Lab Order: CBC with Diff; SPEC'M 07/07/16 14:25 Test: WHITE BLOOD COUNT; Value: 7.4; Range: 4.0-10.0; Units: K/mm3; Status: F Test: RED BLOOD COUNT; Value: 3.50; Range: 4.30-6.10; Abnormal: Below low normal; Units: M/mm3; Status: F Test: HEMOGLOBIN; Value: 10.5; Range: 14.0-18.0; Abnormal: Below low normal; Units: g/dl; Status: F Test: HEMATOCRIT; Value: 32.3; Range: 42.0-52.0; Abnormal: Below low normal; Units: %; Status: F Test: MEAN CORPUSCULAR VOLUME; Value: 92.2; Range: 80.0-96.0; Units: fl; Status: F Test: MEAN CORPUSCULAR HEMOGLOBIN; Value: 30.0; Range: 27.0-33.0; Units: pg; Status: F Test: MEAN CORPUSCULAR HGB CONC; Value: 32.6; Range: 32.0-36.5; Units: g/dl; Status: F Test: RED CELL DISTRIBUTION WIDTH; Value: 16.5; Range: 11.5-14.5; Abnormal: Above high normal; Units: %; Status: F Test: PLATELET COUNT, AUTOMATED; Value: 154; Range: 150-450; Units: k/mm3; Status: F Test: NEUTROPHILS %; Value: 75.2; Range: 36.0-66.0; Abnormal: Above high normal; Units: %; Status: F Test: LYMPH %; Value: 18.0; Range: 24.0-44.0; Abnormal: Below low normal; Units: %; Status: F Test: MONO %; Value: 4.1; Range: 0.0-5.0; Units: %; Status: F Test: EOS %; Value: 0.9; Range: 0.0-3.0; Units: %; Status: F Test: BASO %; Value: 0.7; Range: 0.0-1.0; Units: %; Status: F Test: LARGE UNSTAINED CELL %; Value: 1.0; Range: 0.0-4.0; Units: %; Status: F Test: NEUTROPHILS #; Value: 5.5; Range: 1.8-7.7; Units: K/mm3; Status: F Test: LYMPH #; Value: 1.3; Range: 1.5-4.5; Abnormal: Below low normal; Units: K/mm3; Status: F Test: MONO #; Value: 0.3; Range: 0.0-0.8; Units: K/mm3; Status: F Test: EOS #; Value: 0.1; Range: 0.0-0.50; Units: K/mm3; Status: F Test: BASO #; Value: 0.0; Range: 0.0-0.2; Units: K/mm3; Status: F Test: LARGE UNSTAINED CELL #; Value: 0.1; Range: 0.0-0.4; Units: K/mm3; Status: F Lab Order: MED Profile; SPEC'M 07/07/16 14:25 Test: GLUCOSE, FASTING; Value: 167; Range: 80-110; Abnormal: Above high normal; Units: MG/DL; Status: F Test: BLOOD UREA NITROGEN; Value: 23; Range: 7-18; Abnormal: Above high normal; Units: MG/DL; Status: F Test: CREATININE FOR GFR; Value: 0.74; Range: 0.70-1.30; Units: MG/DL; Status: F Test: GLOMERULAR FILTRATION RATE; Value: > 60.0; Range: >49; Status: F Test: SODIUM LEVEL; Value: 148; Range: 136-145; Abnormal: Above high normal; Units: MEQ/L; Status: F Test: POTASSIUM SERUM; Value: 3.6; Range: 3.5-5.1; Units: MEQ/L; Status: F Test: CHLORIDE LEVEL; Value: 111; Range: 98-107; Abnormal: Above high normal; Units: MEQ/L; Status: F Test: CARBON DIOXIDE LEVEL; Value: 28; Range: 21-32; Units: MEQ/L; Status: F Test: ANION GAP; Value: 9; Range: 8-16; Units: MEQ/L; Status: F Test: CALCIUM LEVEL; Value: 8.1; Range: 8.8-10.2; Abnormal: Below low normal; Units: MG/DL; Status: F Test Note: ; Units are mL/min/1.73 m2 Chronic Kidney Disease Staging per NKF: Stage I & II GFR >=60 Normal to Mildly Decreased Stage III GFR 30-59 Moderately Decreased Stage IV GFR 15-29 Severely Decreased Stage V GFR <15 Very Little GFR Left ESRD GFR <15 on LINER INSTALLER Lab Order: LIVER PROFILE; SPEC'M 07/07/16 14:25 Test: AST/SGOT; Value: 16; Range: 15-37; Units: U/L; Status: F Test: ALT/SGPT; Value: 11; Range: 12-78; Abnormal: Below low normal; Units: U/L; Status: F Test: ALKALINE PHOSPHATASE; Value: 59; Range: 45-117; Units: U/L; Status: F Test: BILIRUBIN,TOTAL; Value: 0.4; Range: 0.2-1.0; Units: MG/DL; Status: F Test: BILIRUBIN,DIRECT; Value: 0.2; Range: 0.0-0.2; Units: MG/DL; Status: F Test: TOTAL PROTEIN; Value: 7.0; Range: 6.4-8.2; Units: GM/DL; Status: F Test: ALBUMIN; Value: 2.7; Range: 3.2-5.2; Abnormal: Below low normal; Units: GM/DL; Status: F Test: ALBUMIN/GLOBULIN RATIO; Value: 0.63; Range: 1.00-1.93; Abnormal: Below low normal; Status: F Lab Order: VALPROIC ACID (DEPAKOTE); SPEC'M 07/07/16 14:25 Test: VALPROIC ACID (DEPAKOTE); Value: < 3.0; Range: 50.0-100.0; Abnormal: Below low normal; Units: UG/ML; Status: F Lab Order: BLOOD CULTURES; SPEC'M 07/07/16 13:56 Test: BLOOD CULTURE; Value: No growth after 24 hours . All specimens observed; Status: F Test: BLOOD CULTURE; Value: for 7 days. Results final at that time.; Status: F Lab Order: URINALYSIS MANUAL; SPEC'M 07/07/16 14:25 Test: APPEARANCE, URINE MANUAL; Value: CLEAR; Range: CLEAR; Status: F Test: COLOR, URINE MANUAL; Value: YELLOW; Range: YELLOW; Status: F Test: PH,URINE MAN; Value: 5.0; Range: 5.0 - 9.0; Units: UNITS; Status: F Test: SPECIFIC GRAVITY,URINE MANUAL; Value: 1.025; Range: 1.002-1.035; Status: F Test: PROTEIN, URINE MANUAL; Value: TRACE; Range: NEGATIVE; Abnormal: Above high normal; Units: mg/dL; Status: F Test: GLUCOSE, URINE (UA) MANUAL; Value: NEGATIVE; Range: NEGATIVE; Units: mg/dL; Status: F Test: KETONE, URINE MANUAL; Value: NEGATIVE; Range: NEGATIVE; Units: mg/dL; Status: F Test: UROBILINOGEN, URINE MANUAL; Value: NORMAL; Range: NORMAL; Units: mg/dl; Status: F Test: BILIRUBIN, URINE MANUAL; Value: NEGATIVE; Range: NEGATIVE; Status: F Test: NITRITE, URINE MANUAL; Value: NEGATIVE; Range: NEGATIVE; Status: F Test: LEUKOCYTE ESTERASE, URINE MAN; Value: NEGATIVE; Range: NEGATIVE; Status: F Test: BLOOD URINE MANUAL; Value: NEGATIVE; Range: NEGATIVE; Status: F Lab Order: MICROSCOPIC, URINE; SPEC'M 07/07/16 14:25 Test: WBC, URINE; Value: 7-10; Range: 0-3; Abnormal: Above high normal; Units: /hpf; Status: F Test: RBC, URINE; Value: 1-3; Range: 0-3; Units: /hpf; Status: F Test: SQUAMOUS EPITHELIAL CELL URINE; Value: NONE SEEN; Range: SMALL AMT; Units: /hpf; Status: F Test: BACTERIA, URINE; Range: NONE; Status: I Test: HYALINE CAST, URINE; Range: 0-1; Units: /lpf; Status: I Test: MICROSCOPIC EXAM; Status: I Test: TRANSITIONAL EPI CELLS, URINE; Value: SMALL AMOUNT; Range: NONE; Abnormal: Above high normal; Units: /hpf; Status: F Test: BACTERIA, URINE; Value: NONE SEEN; Range: NONE; Status: F Test: HYALINE CAST, URINE; Value: 1-3; Range: 0-1; Abnormal: Above high normal; Units: /lpf; Status: F Test: GRANULAR CAST, URINE; Value: 0-1; Range: NONE; Units: /lpf; Status: F Test: MUCUS, URINE; Value: LARGE AMOUNT; Range: NEGATIVE; Abnormal: Above high normal; Status: F Test: AMORPHOUS SEDIMENT, URINE; Value: SMALL AMOUNT; Range: NEGATIVE; Abnormal: Above high normal; Status: F Test: MICROSCOPIC EXAM; Value: PERFORMED; Status: F Lab Order: LACTIC ACID LEVEL, LACTATE; SPEC'M 07/07/16 20:59 Test: LACTIC ACID LEVEL, LACTATE; Value: 0.5; Range: 0.4-2.0; Units: MMOL/L; Status: F Lab Order: BASIC METABOLIC PROFILE; SPEC'M 07/07/16 20:59 Test: GLUCOSE, FASTING; Value: 135; Range: 80-110; Abnormal: Above high normal; Units: MG/DL; Status: F Test: BLOOD UREA NITROGEN; Value: 21; Range: 7-18; Abnormal: Above high normal; Units: MG/DL; Status: F Test: CREATININE FOR GFR; Value: 0.62; Range: 0.70-1.30; Abnormal: Below low normal; Units: MG/DL; Status: F Test: GLOMERULAR FILTRATION RATE; Value: > 60.0; Range: >49; Status: F Test: SODIUM LEVEL; Value: 146; Range: 136-145; Abnormal: Above high normal; Units: MEQ/L; Status: F Test: POTASSIUM SERUM; Value: 3.3; Range: 3.5-5.1; Abnormal: Below low normal; Units: MEQ/L; Status: F Test: CHLORIDE LEVEL; Value: 111; Range: 98-107; Abnormal: Above high normal; Units: MEQ/L; Status: F Test: CARBON DIOXIDE LEVEL; Value: 31; Range: 21-32; Units: MEQ/L; Status: F Test: ANION GAP; Value: 4; Range: 8-16; Abnormal: Below low normal; Units: MEQ/L; Status: F Test: CALCIUM LEVEL; Value: 7.4; Range: 8.8-10.2; Abnormal: Below low normal; Units: MG/DL; Status: F Test Note: ; Units are mL/min/1.73 m2 Chronic Kidney Disease Staging per NKF: Stage I & II GFR >=60 Normal to Mildly Decreased Stage III GFR 30-59 Moderately Decreased Stage IV GFR 15-29 Severely Decreased Stage V GFR <15 Very Little GFR Left ESRD GFR <15 on LINER INSTALLER Lab Order: CBC WITH DIFFERENTIAL; SPEC'M 07/08/16 06:10 Test: WHITE BLOOD COUNT; Value: 4.8; Range: 4.0-10.0; Units: K/mm3; Status: F Test: RED BLOOD COUNT; Value: 3.35; Range: 4.30-6.10; Abnormal: Below low normal; Units: M/mm3; Status: F Test: HEMOGLOBIN; Value: 10.0; Range: 14.0-18.0; Abnormal: Below low normal; Units: g/dl; Status: F Test: HEMATOCRIT; Value: 31.0; Range: 42.0-52.0; Abnormal: Below low normal; Units: %; Status: F Test: MEAN CORPUSCULAR VOLUME; Value: 92.6; Range: 80.0-96.0; Units: fl; Status: F Test: MEAN CORPUSCULAR HEMOGLOBIN; Value: 29.9; Range: 27.0-33.0; Units: pg; Status: F Test: MEAN CORPUSCULAR HGB CONC; Value: 32.3; Range: 32.0-36.5; Units: g/dl; Status: F Test: RED CELL DISTRIBUTION WIDTH; Value: 16.6; Range: 11.5-14.5; Abnormal: Above high normal; Units: %; Status: F Test: PLATELET COUNT, AUTOMATED; Value: 129; Range: 150-450; Abnormal: Below low normal; Units: k/mm3; Status: F Test: NEUTROPHILS %; Value: 72.2; Range: 36.0-66.0; Abnormal: Above high normal; Units: %; Status: F Test: LYMPH %; Value: 19.1; Range: 24.0-44.0; Abnormal: Below low normal; Units: %; Status: F Test: MONO %; Value: 4.0; Range: 0.0-5.0; Units: %; Status: F Test: EOS %; Value: 2.0; Range: 0.0-3.0; Units: %; Status: F Test: BASO %; Value: 1.0; Range: 0.0-1.0; Units: %; Status: F Test: LARGE UNSTAINED CELL %; Value: 1.7; Range: 0.0-4.0; Units: %; Status: F Test: NEUTROPHILS #; Value: 3.5; Range: 1.8-7.7; Units: K/mm3; Status: F Test: LYMPH #; Value: 0.9; Range: 1.5-4.5; Abnormal: Below low normal; Units: K/mm3; Status: F Test: MONO #; Value: 0.2; Range: 0.0-0.8; Units: K/mm3; Status: F Test: EOS #; Value: 0.1; Range: 0.0-0.50; Units: K/mm3; Status: F Test: BASO #; Value: 0.0; Range: 0.0-0.2; Units: K/mm3; Status: F Test: LARGE UNSTAINED CELL #; Value: 0.1; Range: 0.0-0.4; Units: K/mm3; Status: F Lab Order: BASIC METABOLIC PROFILE; SPEC'07/08/16 06:10 Test: GLUCOSE, FASTING; Value: 132; Range: 80-110; Abnormal: Above high normal; Units: MG/DL; Status: F Test: BLOOD UREA NITROGEN; Value: 16; Range: 7-18; Units: MG/DL; Status: F Test: CREATININE FOR GFR; Value: 0.57; Range: 0.70-1.30; Abnormal: Below low normal; Units: MG/DL; Status: F Test: GLOMERULAR FILTRATION RATE; Value: > 60.0; Range: >49; Status: F Test: SODIUM LEVEL; Value: 147; Range: 136-145; Abnormal: Above high normal; Units: MEQ/L; Status: F Test: POTASSIUM SERUM; Value: 3.8; Range: 3.5-5.1; Units: MEQ/L; Status: F Test: CHLORIDE LEVEL; Value: 110; Range: 98-107; Abnormal: Above high normal; Units: MEQ/L; Status: F Test: CARBON DIOXIDE LEVEL; Value: 30; Range: 21-32; Units: MEQ/L; Status: F Test: ANION GAP; Value: 7; Range: 8-16; Abnormal: Below low normal; Units: MEQ/L; Status: F Test: CALCIUM LEVEL; Value: 7.5; Range: 8.8-10.2; Abnormal: Below low normal; Units: MG/DL; Status: F Test Note: ; Units are mL/min/1.73 m2 Chronic Kidney Disease Staging per NKF: Stage I & II GFR >=60 Normal to Mildly Decreased Stage III GFR 30-59 Moderately Decreased Stage IV GFR 15-29 Severely Decreased Stage V GFR <15 Very Little GFR Left ESRD GFR <15 on LINER INSTALLER Lab Order: MAGNESIUM LEVEL; SPEC'07/08/16 06:10 Test: MAGNESIUM LEVEL; Value: 2.1; Range: 1.8-2.4; Units: MG/DL; Status: F Lab Order: GASTROINTESTINAL (GI) PANEL; SPEC'07/08/16 04:14 Test: GASTROINTESTINAL (GI) PANEL; Value: GI PANEL RESULT NEGATIVE by PCR; Status: F Test: GASTROINTESTINAL (GI) PANEL; Value: Comments:; Status: F Test Note: ; This Gastrointestinal PCR Panel detects the following bacteria, parasites and viruses: Campylobacter (jejuni, coli and upsaliensis), Clostridium difficile (toxin A/B), Plesiomonas shigelloides, Salmonella, Yersinia enterocolitica, Vibrio (parahaemolyticus, vulnificus and cholerae), Vibrio clolerae, Enteroaggregative E. coli (EAEC), Enteropathogenis E. coli (EPEC), Enterotoxigenic E. coli (ETEC) it/st, Shiga-like producing E. coli (STEC) stx1/stc2, E.coli O157, Shigella/Enteroinvasive E. coli (EIEC), Cryptosporidium, Cyclospora cayetanensis, Entamoeba histolytica, Giardia lamblia, Adenovirus F 40/41, Astrovirus, Norovirus GI/GII, Rotavirus A and Sapovirus (I, II, IV, V). Lab Order: BASIC METABOLIC PROFILE; SPEC'M 07/08/16 02:07 Test: GLUCOSE, FASTING; Value: 161; Range: 80-110; Abnormal: Above high normal; Units: MG/DL; Status: F Test: BLOOD UREA NITROGEN; Value: 18; Range: 7-18; Units: MG/DL; Status: F Test: CREATININE FOR GFR; Value: 0.60; Range: 0.70-1.30; Abnormal: Below low normal; Units: MG/DL; Status: F Test: GLOMERULAR FILTRATION RATE; Value: > 60.0; Range: >49; Status: F Test: SODIUM LEVEL; Value: 145; Range: 136-145; Units: MEQ/L; Status: F Test: POTASSIUM SERUM; Value: 3.3; Range: 3.5-5.1; Abnormal: Below low normal; Units: MEQ/L; Status: F Test: CHLORIDE LEVEL; Value: 110; Range: 98-107; Abnormal: Above high normal; Units: MEQ/L; Status: F Test: CARBON DIOXIDE LEVEL; Value: 29; Range: 21-32; Units: MEQ/L; Status: F Test: ANION GAP; Value: 6; Range: 8-16; Abnormal: Below low normal; Units: MEQ/L; Status: F Test: CALCIUM LEVEL; Value: 7.4; Range: 8.8-10.2; Abnormal: Below low normal; Units: MG/DL; Status: F Test Note: ; Units are mL/min/1.73 m2 Chronic Kidney Disease Staging per NKF: Stage I & II GFR >=60 Normal to Mildly Decreased Stage III GFR 30-59 Moderately Decreased Stage IV GFR 15-29 Severely Decreased Stage V GFR <15 Very Little GFR Left ESRD GFR <15 on 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 Lab Order: Fingerstick Blood Sugar; SPEC'M 07/07/16 23:13 Test: BEDSIDE GLUCOSE; Value: 128; Range: 80-115; Abnormal: Above high normal; Units: MG/DL; Status: F Lab Order: Fingerstick Blood Sugar; SPEC'M 07/08/16 08:19 Test: BEDSIDE GLUCOSE; Value: 139; Range: 80-115; Abnormal: Above high normal; Units: MG/DL; Status: F Lab Order: Fingerstick Blood Sugar; SPEC' 07/08/16 11:51 Test: BEDSIDE GLUCOSE; Value: 139; Range: 80-115; Abnormal: Above high normal; Units: MG/DL; Status: F Radiology Order: CT ABD & PELVIS: No Contrast Test: CT ABD & PELVIS: No Contrast REASON FOR EXAMINATION: Abdomen Pain; CT ABDOMEN AND PELVIS WITHOUT CONTRAST:; ; CT abdomen and pelvis is performed without IV contrast.; ; Comparison made with a prior study of 07/05/2016.; ; Sagittal and coronal reconstruction images are performed.; ; The visualized lung bases demonstrate no change bibasilar lung infiltrates. The; heart is enlarged. The liver, spleen, adrenals, pancreas and kidneys are grossly; unremarkable and unchanged. There is no hydroureteronephrosis. There is no; abdominal aortic aneurysm. There is no evidence of adenopathy, free air or free; fluid. A feeding tube is seen in the upper abdomen and appears similar to the; prior exam. There is a large amount of fecal material throughout the colon which; is moderately distended. There is no evidence of small bowel obstruction. I see; no pelvic mass. The urinary bladder is mildly distended and grossly unremarkable.; There are small bilateral inguinal hernias containing fat. There are degenerative; changes of the spine.; ; IMPRESSION:; ; No change in bibasilar lung infiltrates compared to a prior study of 07/05/2016.; Small bilateral inguinal hernias contain fat. There is a large amount of fecal; material scattered throughout a moderately distended colon. No evidence of small; bowel obstruction. 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 sd1 07/08 15:17 Discharge Assessment: Patient awake, alert and oriented x 3. No cognitive and/or pml functional deficits noted. Patient verbalized understanding of disposition instructions. patient administered narcotics - no. The following High Risk Discharge criteria are identified: None. Admitted to Med/Surg accompanied by tech, via stretcher, with chart. Condition: stable. Ultrasound Study completed. Admission hand-off: Report Faxed Fax receipt verified by 4 Renee. Property :Personal belongings accompany Pt. 15:26 Patient left the ED. pml Signatures: Dispatcher [employer] EDGali Berry MD MD sd1 Oriana Salinas RN RN kmg1 Kleber Franco, RN Kae Bush RN RN mcp Barnhardt, Gloria, Joseph Reg Jing James RN RN jo3 Jolene Mederos RN RN lf1 Jeanne Noble RN RN pml Sullivan, Jennifer,GWYN RN js13 Ana Gold gr2 Alexandria Cristina mm15 Sergio Pike, SHEET METAL INSTALLER SHEET METAL INSTALLER jrd Estefany Caballero Nicole nb2 Crystal Paul,RN RN tm5 Corrections: (The following items were deleted from the chart) 07/07 14:52 14:35 URINALYSIS+LAB sent. js13 EDMS Chart Complete MTDD
--- NOTE | 2016-07-12 14:03 | EDDOCDS ---
Physician Documentation [facility] Name: Baldemar Jones Age: 61 yrs Sex: Male : 1955 Arrival Date: 07/07/2016 Time: 12:46 Bed 19 Private MD: Gerri Aguiar DO. Disposition: 07/07/16 17:46 Hospitalization ordered by Freda Britt for Inpatient Admission. Preliminary diagnosis is Bacteremia - MRSA. - Bed requested for 4 [place]. - Status is Inpatient Admission. pml - Condition is Stable. - Problem is new. - Symptoms are unchanged. Historical: - Allergies: no known allergies; - Home Meds: 1. albuterol sulfate 2.5 mg /3 mL (0.083 %) Inhl nebu 3 mL 4 times per day 2. atorvastatin 40 mg oral tab 1 tab once daily 3. Depakene 250 mg Oral cap twice a day 4. Diabetic Tussin DM 10-100 mg/5 mL oral syrp every 6 hours 5. Flomax 0.4 mg Oral cp24 1 cap once daily 6. Lipitor 40 mg Oral tab once daily 7. Miralax 17 gram/dose Oral powd once daily 8. oxygen 2 liters NC nightly 9. paroxetine HCl 20 mg Oral tab once daily 10. Senna-S 8.6-50 mg oral tab prn 11. Sinemet 25-100 mg Oral tab 1 tab 3 times per day 12. Tylenol 325 mg Oral tab 2 tabs every 6 hours 13. Zyprexa 5 mg Oral tab 1 tab once daily - PMHx: Asthma; BPH; Diabetes - NIDDM: controlled; Down's Syndrome; Hypercholesterolemia; Parkinson's Disease; - PSHx: J-tube placement; Abdominal surgery; - Social history: Smoking status: Patient states was never smoker of tobacco. No barriers to communication noted, The patient speaks fluent Namibian, Speaks appropriately for age. - Family history: Not pertinent. - : The pt / caregiver states he / she is not on anticoagulants. Home medication list is obtained from the caregiver. - Exposure Risk Screening:: None identified. Vital Signs: 07/07 12:48 BP 102 / 51; Pulse 105; Resp 18 S; Temp 97.3(O); Pulse Ox 96% on R/A; Weight 54.43 kg / gr2 120 lbs (R); Height 5 ft. 4 in. (162.56 cm) (R); Pain 3/10; 18:28 BP 120 / 58 (auto/); js13 18:28 Pulse 84 MON; Resp 16; Pulse Ox 94% on R/A; js13 18:58 BP 100 / 50 (auto/); lf1 18:58 Pulse 84 MON; Pulse Ox 95% ; lf1 19:13 BP 110 / 58 (auto/); lf1 19:13 Pulse 86 MON; Pulse Ox 96% ; lf1 19:28 BP 106 / 56 (auto/); lf1 19:28 Pulse 80 MON; Pulse Ox 94% ; lf1 19:43 BP 110 / 54 (auto/); lf1 19:43 Pulse 82 MON; Pulse Ox 95% ; lf1 19:58 Pulse 80 MON; Pulse Ox 96% ; lf1 19:58 BP 110 / 56 (auto/); lf1 20:13 BP 131 / 58 (auto/); lf1 20:13 Pulse 80 MON; Pulse Ox 96% ; lf1 21:49 Pulse 80 MON; Resp 20; Temp 98.9(R); Pulse Ox 95% ; lf1 22:40 BP 115 / 58 (auto/); tm5 22:41 Pulse 84 MON; Resp 20 S; Pulse Ox 96% on R/A; tm5 07/08 15:25 BP 134 / 65; Pulse 94; Resp 20; Temp 96.5(T); Pulse Ox 96% on R/A; pml 07/07 12:48 Body Mass Index 20.60 (54.43 kg, 162.56 cm) gr2 07/07 12:48 WEIGH MAY NOT BE ACCURATE gr2 MDM: 13:51 -Blood Culture (Adults Only), peripheral from different site, or from device/port/PICC sd1 etc. if present ordered. 13:51 NS 0.9% (Sepsis- hypotension or lactate >4mmol/L, 30ml/kg) 30 ml/kg IV at bolus once; sd1 Give in 500mL aliquots, assess for rales after [id number] ordered. 13:51 -Blood Culture Ordered. EDMS 13:51 Lactic Acid (Pickering tube on ice) Ordered. EDMS 13:53 CBC with Diff Ordered. EDMS 13:53 MED Profile Ordered. EDMS 13:53 CT ABD & PELVIS: No Contrast Ordered. EDMS 13:54 Urine Culture Ordered. EDMS 13:56 LIVER PROFILE Ordered. EDMS 13:56 VALPROIC ACID (DEPAKOTE) Ordered. EDMS 14:02 -Blood Culture (Adults Only), peripheral from different site, or from device/port/PICC lbd etc. if present complete. 14:05 BLOOD CULTURES Ordered. EDMS 14:30 Financial registration complete. mm15 14:36 Straight cath ordered. js13 14:43 [facility] Payment Agreement was scanned into [employer] and attached to record. mm15 14:52 URINALYSIS MANUAL Ordered. EDMS 15:00 CBC with Diff Reviewed. sd1 15:00 MED Profile Reviewed. sd1 15:00 LIVER PROFILE Reviewed. sd1 15:00 VALPROIC ACID (DEPAKOTE) Reviewed. sd1 15:00 URINALYSIS MANUAL Reviewed. sd1 15:00 Lactic Acid (Pickering tube on ice) Reviewed. sd1 16:31 URINALYSIS MANUAL Reviewed. sd1 16:31 MICROSCOPIC, URINE Reviewed. sd1 16:31 CT ABD & PELVIS: No Contrast Reviewed. sd1 16:33 vancomycin (loading dose for pt. wt. 50-59kg) 1250 mg IVPB once ordered. sd1 17:05 BED REQUEST+ADM ordered. EDMS 17:46 Weapons Mechanic/Pulse Ox/q 15 min VS ordered. sd1 17:49 ECG WITH READING ER PHYS+CARDIAG ordered. EDMS 20:44 Admission / Observation Status ordered. EDMS 20:44 ECHOCARD,DOPPLER/COLOR FLOW ordered. EDMS 20:44 CT Chest without contrast Ordered. EDMS 20:45 LACTIC ACID LEVEL, LACTATE Ordered. EDMS 20:45 BASIC METABOLIC PROFILE Ordered. EDMS 20:45 CBC WITH DIFFERENTIAL Ordered. EDMS 20:45 BASIC METABOLIC PROFILE Ordered. EDMS 20:45 MAGNESIUM LEVEL Ordered. EDMS 20:54 GASTROINTESTINAL (GI) PANEL Ordered. EDMS 21:41 BASIC METABOLIC PROFILE Ordered. EDMS 07/08 01:10 VANCOMYCIN LEVEL TROUGH Ordered. EDMS 06:27 Thyroid, ST head+neck US Ordered. EDMS 07:41 ECG/EKG was scanned into [employer] and attached to record. gb 08:28 Fingerstick Blood Sugar Ordered. EDMS 12:00 Fingerstick Blood Sugar Ordered. EDMS Administered Medications: 01/27 14:35 Drug: NS 0.9% (Sepsis- hypotension or lactate >4mmol/L, 30ml/kg) 1632.9 ml [sodium js13 chloride 0.9 % intravenous solution] Route: IV; Rate: bolus; Site: right forearm; 15:08 Follow up: IV Status: LS clear no rales.; IV Intake: 500ml js13 17:04 Follow up: IV Intake: 500ml ; No rales upon ausculation js13 18:36 Follow up: IV Status: No rales noted upon exam; IV Intake: 500ml js13 18:59 Follow up: IV Status: Completed infusion; IV Intake: 100ml lf1 17:24 CANCELLED (Duplicate Order): NS 0.9% (Sepsis- hypotension or lactate >4mmol/L, 30ml/kg) sd1 30 ml/kg IV at bolus once; Give in 500mL aliquots, assess for rales after each, 1500cc 17:30 Drug: vancomycin (loading dose for pt. wt. 50-59kg) 1250 mg [vancomycin 1,000 mg [facility] intravenous injection] Route: IVPB; Site: right forearm; Signatures: Dispatcher [employer] EDMS Gali Salmeron MD MD sd1 Hawa Marie, Wirer Helper Unit lbd Barbie Bucio, Jing Hayden,Jeanne Haji RN, RN RN pml Sullivan, Jennifer, RN RN js13 Alexandria Cristina Bruce RN eugene Mederos, Jolene PASCAL lf1 The chart was reviewed and I authenticate all verbal orders and agree with the evaluation and treatment provided.Corrections: (The following items were deleted from the chart) 13:54 13:53 VALPROIC ACID (DEPAKOTE)+LAB ordered. EDMS EDMS 13:56 13:53 LIVER PROFILE+LAB ordered. EDMS EDMS 14:52 13:54 URINALYSIS+LAB ordered. EDMS EDMS 17:24 17:04 NS 0.9% (Sepsis- hypotension or lactate >4mmol/L, 30ml/kg) 30 ml/kg IV at bolus sd1 once; Give in 500mL aliquots, assess for rales after each, 1500cc ordered. sd1 20:54 20:52 GASTROINTESTINAL (GI) PANEL ordered. EDMS EDMS Attachments: 14:43 [facility] Payment Agreement mm15 07/08 07:41 ECG/EKG gb Chart Complete MTDD
--- NOTE | 2016-07-12 14:03 | EDDOCDS ---
Physician Documentation [facility] Name: Baldemar Jones Age: 61 yrs Sex: Male : 1955 Arrival Date: 07/07/2016 Time: 12:46 Bed 19 Private MD: Gerri Aguiar DO. Disposition: 07/07/16 17:46 Hospitalization ordered by Freda Britt for Inpatient Admission. Preliminary diagnosis is Bacteremia - MRSA. - Bed requested for 4 [place]. - Status is Inpatient Admission. pml - Condition is Stable. - Problem is new. - Symptoms are unchanged. Historical: - Allergies: no known allergies; - Home Meds: 1. albuterol sulfate 2.5 mg /3 mL (0.083 %) Inhl nebu 3 mL 4 times per day 2. atorvastatin 40 mg oral tab 1 tab once daily 3. Depakene 250 mg Oral cap twice a day 4. Diabetic Tussin DM 10-100 mg/5 mL oral syrp every 6 hours 5. Flomax 0.4 mg Oral cp24 1 cap once daily 6. Lipitor 40 mg Oral tab once daily 7. Miralax 17 gram/dose Oral powd once daily 8. oxygen 2 liters NC nightly 9. paroxetine HCl 20 mg Oral tab once daily 10. Senna-S 8.6-50 mg oral tab prn 11. Sinemet 25-100 mg Oral tab 1 tab 3 times per day 12. Tylenol 325 mg Oral tab 2 tabs every 6 hours 13. Zyprexa 5 mg Oral tab 1 tab once daily - PMHx: Asthma; BPH; Diabetes - NIDDM: controlled; Down's Syndrome; Hypercholesterolemia; Parkinson's Disease; - PSHx: J-tube placement; Abdominal surgery; - Social history: Smoking status: Patient states was never smoker of tobacco. No barriers to communication noted, The patient speaks fluent Bulgarian, Speaks appropriately for age. - Family history: Not pertinent. - : The pt / caregiver states he / she is not on anticoagulants. Home medication list is obtained from the caregiver. - Exposure Risk Screening:: None identified. Vital Signs: 07/07 12:48 BP 102 / 51; Pulse 105; Resp 18 S; Temp 97.3(O); Pulse Ox 96% on R/A; Weight 54.43 kg / gr2 120 lbs (R); Height 5 ft. 4 in. (162.56 cm) (R); Pain 3/10; 18:28 BP 120 / 58 (auto/); js13 18:28 Pulse 84 MON; Resp 16; Pulse Ox 94% on R/A; js13 18:58 BP 100 / 50 (auto/); lf1 18:58 Pulse 84 MON; Pulse Ox 95% ; lf1 19:13 BP 110 / 58 (auto/); lf1 19:13 Pulse 86 MON; Pulse Ox 96% ; lf1 19:28 BP 106 / 56 (auto/); lf1 19:28 Pulse 80 MON; Pulse Ox 94% ; lf1 19:43 BP 110 / 54 (auto/); lf1 19:43 Pulse 82 MON; Pulse Ox 95% ; lf1 19:58 Pulse 80 MON; Pulse Ox 96% ; lf1 19:58 BP 110 / 56 (auto/); lf1 20:13 BP 131 / 58 (auto/); lf1 20:13 Pulse 80 MON; Pulse Ox 96% ; lf1 21:49 Pulse 80 MON; Resp 20; Temp 98.9(R); Pulse Ox 95% ; lf1 22:40 BP 115 / 58 (auto/); tm5 22:41 Pulse 84 MON; Resp 20 S; Pulse Ox 96% on R/A; tm5 07/08 15:25 BP 134 / 65; Pulse 94; Resp 20; Temp 96.5(T); Pulse Ox 96% on R/A; pml 07/07 12:48 Body Mass Index 20.60 (54.43 kg, 162.56 cm) gr2 07/07 12:48 WEIGH MAY NOT BE ACCURATE gr2 MDM: 13:51 -Blood Culture (Adults Only), peripheral from different site, or from device/port/PICC sd1 etc. if present ordered. 13:51 NS 0.9% (Sepsis- hypotension or lactate >4mmol/L, 30ml/kg) 30 ml/kg IV at bolus once; sd1 Give in 500mL aliquots, assess for rales after [id number] ordered. 13:51 -Blood Culture Ordered. EDMS 13:51 Lactic Acid (Pickering tube on ice) Ordered. EDMS 13:53 CBC with Diff Ordered. EDMS 13:53 MED Profile Ordered. EDMS 13:53 CT ABD & PELVIS: No Contrast Ordered. EDMS 13:54 Urine Culture Ordered. EDMS 13:56 LIVER PROFILE Ordered. EDMS 13:56 VALPROIC ACID (DEPAKOTE) Ordered. EDMS 14:02 -Blood Culture (Adults Only), peripheral from different site, or from device/port/PICC lbd etc. if present complete. 14:05 BLOOD CULTURES Ordered. EDMS 14:30 Financial registration complete. mm15 14:36 Straight cath ordered. js13 14:43 REPLACED BY [facility] Payment Agreement was scanned into [employer] and attached to record. mm15 14:52 URINALYSIS MANUAL Ordered. EDMS 15:00 CBC with Diff Reviewed. sd1 15:00 MED Profile Reviewed. sd1 15:00 LIVER PROFILE Reviewed. sd1 15:00 VALPROIC ACID (DEPAKOTE) Reviewed. sd1 15:00 URINALYSIS MANUAL Reviewed. sd1 15:00 Lactic Acid (Pickering tube on ice) Reviewed. sd1 16:31 URINALYSIS MANUAL Reviewed. sd1 16:31 MICROSCOPIC, URINE Reviewed. sd1 16:31 CT ABD & PELVIS: No Contrast Reviewed. sd1 16:33 vancomycin (loading dose for pt. wt. 50-59kg) 1250 mg IVPB once ordered. sd1 17:05 BED REQUEST+ADM ordered. EDMS 17:46 Airport Control Operator/Pulse Ox/q 15 min VS ordered. sd1 17:49 ECG WITH READING ER PHYS+CARDIAG ordered. EDMS 20:44 Admission / Observation Status ordered. EDMS 20:44 ECHOCARD,DOPPLER/COLOR FLOW ordered. EDMS 20:44 CT Chest without contrast Ordered. EDMS 20:45 LACTIC ACID LEVEL, LACTATE Ordered. EDMS 20:45 BASIC METABOLIC PROFILE Ordered. EDMS 20:45 CBC WITH DIFFERENTIAL Ordered. EDMS 20:45 BASIC METABOLIC PROFILE Ordered. EDMS 20:45 MAGNESIUM LEVEL Ordered. EDMS 20:54 GASTROINTESTINAL (GI) PANEL Ordered. EDMS 21:41 BASIC METABOLIC PROFILE Ordered. EDMS 07/08 01:10 VANCOMYCIN LEVEL TROUGH Ordered. EDMS 06:27 Thyroid, ST head+neck US Ordered. EDMS 07:41 ECG/EKG was scanned into [employer] and attached to record. gb 08:28 Fingerstick Blood Sugar Ordered. EDMS 12:00 Fingerstick Blood Sugar Ordered. EDMS Administered Medications: 01/27 14:35 Drug: NS 0.9% (Sepsis- hypotension or lactate >4mmol/L, 30ml/kg) 1632.9 ml [sodium js13 chloride 0.9 % intravenous solution] Route: IV; Rate: bolus; Site: right forearm; 15:08 Follow up: IV Status: LS clear no rales.; IV Intake: 500ml js13 17:04 Follow up: IV Intake: 500ml ; No rales upon ausculation js13 18:36 Follow up: IV Status: No rales noted upon exam; IV Intake: 500ml js13 18:59 Follow up: IV Status: Completed infusion; IV Intake: 100ml lf1 17:24 CANCELLED (Duplicate Order): NS 0.9% (Sepsis- hypotension or lactate >4mmol/L, 30ml/kg) sd1 30 ml/kg IV at bolus once; Give in 500mL aliquots, assess for rales after each, 1500cc 17:30 Drug: vancomycin (loading dose for pt. wt. 50-59kg) 1250 mg [vancomycin 1,000 mg [facility] intravenous injection] Route: IVPB; Site: right forearm; Signatures: Dispatcher [employer] EDMS Gali Salmeron MD MD sd1 Hawa Marie, Vehicle Assembly Inspector Unit lbd Barbie Bucio, Jing Hayden,Jeanne Haji RN, RN RN pml Sullivan, Jennifer, RN RN js13 Alexandria Cristina Bruce RN eugene Mederos, Jolene PASCAL lf1 The chart was reviewed and I authenticate all verbal orders and agree with the evaluation and treatment provided.Corrections: (The following items were deleted from the chart) 13:54 13:53 VALPROIC ACID (DEPAKOTE)+LAB ordered. EDMS EDMS 13:56 13:53 LIVER PROFILE+LAB ordered. EDMS EDMS 14:52 13:54 URINALYSIS+LAB ordered. EDMS EDMS 17:24 17:04 NS 0.9% (Sepsis- hypotension or lactate >4mmol/L, 30ml/kg) 30 ml/kg IV at bolus sd1 once; Give in 500mL aliquots, assess for rales after each, 1500cc ordered. sd1 20:54 20:52 GASTROINTESTINAL (GI) PANEL ordered. EDMS EDMS Attachments: 14:43 [facility] Payment Agreement mm15 07/08 07:41 ECG/EKG gb Chart Complete MTDD
[2016-07-12] MEDS: ATORVASTATIN 20 MG TAB PO SCH (20:40)
[2016-07-12] MEDS: OLANZapine 5 MG TAB PO SCH (20:40)
[2016-07-13] MEDS: HumaLOG INSULIN (NovoLOG) PER UNIT SC SCH ×5 (00:20→23:47)
[2016-07-13] MEDS: POTASSIUM CHLORIDE INJ 40 MEQ in NS 0.45% 1,000 ML IV SCH ×2 (01:44→13:00)
[2016-07-13] MEDS: PIPERACILLIN/TAZOBACTAM SOD 3.375 GM in D5W MINI-BAG PLUS 50 ML IV SCH ×4 (01:44→17:53)
[2016-07-13] MEDS: ALBUTEROL SULFATE 2.5 MG/0.5 ML INH NEB SOLN INH SCH ×6 (02:57→23:41)
[2016-07-13 06:00] VITALS: BP 126/59
[2016-07-13] MEDS: SINEMET 25-100 MG TAB PO SCH ×3 (06:13→17:53)
[2016-07-13 06:44] LABS: ANION GAP 8 MEQ/L (8-16); BASO % 0.7 % (0.0-1.0); BLOOD UREA NITROGEN 3 MG/DL (7-18); CALCIUM LEVEL 8.2 MG/DL (8.8-10.2); CARBON DIOXIDE LEVEL 27 MEQ/L (21-32); CHLORIDE LEVEL 106 MEQ/L (98-107); CREATININE FOR GFR 0.59 MG/DL (0.70-1.30); EOS # 0.1 K/mm3 (0.0-0.50); GLOMERULAR FILTRATION RATE > 60.0 (>49); GLUCOSE, FASTING 136 MG/DL (80-110); LARGE UNSTAINED CELL # 0.1 K/mm3 (0.0-0.4); LARGE UNSTAINED CELL % 2.2 % (0.0-4.0); LYMPH # 0.9 K/mm3 (1.5-4.5); LYMPH % 25.8 % (24.0-44.0); MAGNESIUM LEVEL 1.8 MG/DL (1.8-2.4); MEAN CORPUSCULAR HEMOGLOBIN 28.8 pg (27.0-33.0); MEAN CORPUSCULAR HGB CONC 31.4 g/dl (32.0-36.5); MEAN CORPUSCULAR VOLUME 91.8 fl (80.0-96.0); MONO # 0.3 K/mm3 (0.0-0.8); MONO % 7.2 % (0.0-5.0); NEUTROPHILS # 2.3 K/mm3 (1.8-7.7); NEUTROPHILS % 62.1 % (36.0-66.0); PLATELET COUNT, AUTOMATED 141 k/mm3 (150-450); POTASSIUM SERUM 4.2 MEQ/L (3.5-5.1); SODIUM LEVEL 141 MEQ/L (136-145); WHITE BLOOD COUNT 3.6 K/mm3 (4.0-10.0)
[2016-07-13] MEDS: BUDESONIDE 0.5 MG/2 ML INHALATION SUSPENSION INH SCH ×2 (07:27→19:58)
[2016-07-13] MEDS: ENOXAPARIN 40 MG/0.4 ML SYRINGE (J1650) SC SCH (08:10)
[2016-07-13] MEDS: PARoxetine 20 MG TAB PO SCH (08:52)
[2016-07-13] MEDS ORDERED: LIDOCAINE 2% MDV 20 ML VIAL As Ordered ONE (10:50)
[2016-07-13] MEDS ORDERED: ISOVUE-300 61% 50ML VIAL (Q9967) As Ordered ONE (10:51)
--- NOTE | 2016-07-13 11:10 | IPNPDOC ---
Assessment/Plan Date Seen The patient was seen on 07/13/16. Problems Problems: (1) Advance directive infomation pending evaluation Status: Acute Problem Text: Pt is a [facility] patient with developmental disability paperwork in process (2) Aspiration pneumonia Status: Acute Response to Treatment: Improving Problem Text: on Zosyn and Vancomycin has a PEG in place, tube feed was held will continue with IVF. will be seen by dr Davis today, (3) Acute respiratory failure with hypoxemia Status: Resolved Problem Text: due to aspiration pneumonia will continue with zosyn to vancomycin Day 6 will d/c in am (4) MRSA bacteremia Status: Resolved Problem Text: Pt's B/C from 07/05 showed growth of MRSA in one tube and no growth in the other. Pt has a reported temperature of 101F on 07/05/16 blood cultures form 07/07 were negative X2 sets (5) Hypernatremia Status: Resolved (6) Diarrhea Status: Resolved Problem Text: Pt's stool is described as progressing from loose and watery to foul-smelling mustard-yellow. Suspect it is due to peg tube feedings but will check for C. difficile since the pt has been on multiple antibiotics. will change peg tube feeds to a low residual Optimental (7) Neck mass Status: Acute Problem Text: A mass was palpated on left side of neck during physical exam. Will ultrasound. (8) Anemia Status: Acute Problem Text: Pt's hgb today is 10.5. Going over the pt's past history, it appears his baseline hovers around a hbg of 10-11. Will transfuse if necessary otherwise, we will monitor his h/h through CBC in AM labs. (9) DM2 (diabetes mellitus, type 2) Status: Chronic Problem Text: Will stop all PO anti-diabetic medications upon hospitalization and put pt on sliding scale of insulin. (10) Dyslipidemia Status: Chronic Problem Text: Continue atorvastatin (11) BPH (benign prostatic hyperplasia) Status: Chronic Problem Text: Continue home medications for BPH (12) Down's syndrome Status: Chronic (13) Parkinsons disease Status: Chronic Problem Text: Continue current medications (14) Asthma Status: Chronic Problem Text: Continue albuterol PRN and nebulizer 4 times a day (15) DVT prophylaxis Status: Chronic Problem Text: Lovenox, TEDs, SEQs Plan / VTE VTE Prophylaxis Ordered?: Yes Plan / Urinary Catheter Reason for insertion/continuin: Critical Pt monitoring Plan IVF: Initiate Diet: Continue Current (Will continue with tube feeding) Activity: Continue Current Subjective Review of Systems CC/HPI The patient is a 61-year-old male admitted with a reason for visit of Mrsa Bacteremia. Events since last encounter pt seen and examined, no overnight events General: Reports: ROS Unobtainable Objective Physical Examination General Exam: Positive: Alert, Cooperative, No Acute Distress Eye Exam: Positive: Conjunctiva & lids normal, EOMI, PERRLA, Negative: Ptosis, Sclera icteric ENT Exam: Positive: Atraumatic, Nares Patent, Pharynx Normal, Tongue Midline, Negative: Mucous membr. moist/pink, Pharyngeal Edema Neck Exam: Positive: Other (Firm smooth nodule approx 1cm felt on the left that rises with swallowing. ), Supple, Negative: JVD Chest Exam: Positive: Clear to auscultation, Normal air movement, Wheezing ( Originating from upper airway) Heart Exam: Positive: Murmurs (Systolic), Normal S1, Normal S2, Rate Normal, Regular Rhythm Abdomen Exam: Positive: Mass (Liver edge palpated at RUQ), Normal bowel sounds , Other (Peg tube placement site is mildly erythematous with minimal serous drainage surrounding the tube. No evidence of acute infectious process, this is likely from irritation.), Soft, Tenderness (Tender to palpation on RUQ) Male Exam: Positive: Normal Genital Exam Extremity Exam: Positive: Normal pulses, Negative: Clubbing, Cyanosis, Edema Skin Exam: Positive: Nl turgor and temperature, Other skin issue (Mild reddening of skin over bilateral upper buttocks without any evidence of skin breakdown. ), Negative: Breakdown, Rash Vital Signs/I&O Vital Signs Date Time Temp Pulse Resp B/P Pulse Ox O2 Delivery O2 Flow Rate FiO2 07/13/16 08:00 Nasal Cannula 2.0 07/13/16 06:00 97.4 73 18 126/59 100 07/12/16 04:00 28 I&O- Last 24 Hours up to 6 AM 07/13/16 06:00 Intake Total 320 ml Output Total 2350 ml Balance -2030 ml Laboratory Data Labs 24H Laboratory Tests 2 07/12/16 12:18: Bedside Glucose (Misc Panel) 137H 07/12/16 17:30: Bedside Glucose (Misc Panel) 128H 07/12/16 23:57: Bedside Glucose (Misc Panel) 117H 07/13/16 06:11: Bedside Glucose (Misc Panel) 132H 07/13/16 06:15: Anion Gap 8, White Blood Count 3.6L, Red Blood Count 3.21L, Hemoglobin 9.3L, Hematocrit 29.5L, Mean Corpuscular Volume 91.8, Mean Corpuscular Hemoglobin 28.8 , Mean Corpuscular Hemoglobin Concent 31.4L, Red Cell Distribution Width 16.0H, Platelet Count 141L, Neutrophils (%) (Auto) 62.1, Lymphocytes (%) (Auto) 25.8, Monocytes (%) (Auto) 7.2H, Eosinophils (%) (Auto) 2.0, Basophils (%) (Auto) 0.7 , Neutrophils # (Auto) 2.3, Lymphocytes # (Auto) 0.9L, Monocytes # (Auto) 0.3, Eosinophils # (Auto) 0.1, Basophils # (Auto) 0.0, Blood Urea Nitrogen 3L, Creatinine 0.59L, Sodium Level 141, Potassium Level 4.2, Chloride Level 106, Carbon Dioxide Level 27, Calcium Level 8.2L, Glomerular Filtration Rate > 60.0, Large Unclassified Cells # 0.1, Large Unclassified Cells % 2.2, Magnesium Level 1.8 CBC/BMP Laboratory Tests 07/13/16 06:15 Calcium Level 8.2 L, Red Blood Count 3.21 L, Mean Corpuscular Volume 91.8, Mean Corpuscular Hemoglobin 28.8, Mean Corpuscular Hemoglobin Concent 31.4 L, Red Cell Distribution Width 16.0 H, Neutrophils (%) (Auto) 62.1, Lymphocytes (%) ( Auto) 25.8, Monocytes (%) (Auto) 7.2 H, Eosinophils (%) (Auto) 2.0, Basophils (% ) (Auto) 0.7, Neutrophils # (Auto) 2.3, Lymphocytes # (Auto) 0.9 L, Monocytes # (Auto) 0.3, Eosinophils # (Auto) 0.1, Basophils # (Auto) 0.0 FSBS Laboratory Tests Test 07/12/16 12:18 07/12/16 17:30 07/12/16 23:57 07/13/16 06:11 Range/Units Bedside Glucose (Misc Panel) 137 128 117 132 80-115 MG/DL Microbiology Microbiology 07/07/16 Blood Culture - Final, Complete NO GROWTH AFTER 5 DAYS 07/07/16 Blood Culture - Final, Complete NO GROWTH AFTER 5 DAYS 07/08/16 Gastrointestinal Tract Panel (PCR) - Final, Complete 07/09/16 MRSA Screen - Final, Complete Staph.aureus Methicillin Resis 07/07/16 Urine Culture - Final, Complete YOVANNY REAVES DO Jul 13, 2016 11:10
[2016-07-13] MEDS: VANCOMYCIN HCL 1,000 MG, VIAL MATE ADAPTER 1 EACH in D5W 250 ML IV SCH ×2 (13:27→23:53)
[2016-07-13 14:00] VITALS: BP 115/57
--- NOTE | 2016-07-13 16:02 | REPKIM ---
CLINICAL HISTORY: Patient with a history of Down syndrome and other medical comorbidities has a PEG tube. The patient presents because of aspiration pneumonia/precautions needing conversion of the gastrostomy tube to a gastrojejunostomy tube. PROCEDURE PERFORMED: Gastrostomy tube check INTERVENTIONALIST: Mervin Davis MD CONSENT: The risks, benefits and alternatives to the procedure were explained to Mr Urban Osborne and family, who is the legal guardian, and informed consent was obtained. CONTRAST: 25 mL Isovue 300 PROCEDURE/FINDINGS: The patient was brought to the interventional radiology suite where a timeout procedure was performed. The patient was placed in the supine position with head of bed elevated. The abdomen and indwelling catheter prepped and draped in the usual sterile fashion. Contrast was injected into the existing 20-Georgian PEG tube showing immediate filing of the transverse colon. This also showed opacification of the gastric lumen consistent with gastric-colonic fistula. No evidence of contrast leakage outside the bowel lumen. The internal bumper part of the pre-existing PEG tube appears to be in the transverse colon. For this reason gastrostomy tube to gastrojejunostomy conversion not performed. IMPRESSION: Gatric-colonic fistula. Findings discussed via phone with Dr. Paige. Surgical vs non-operative management options discussed with Dr. Paige. The plan is for the patient to have a separate track new gastrojejunostomy tube placement and keep the pre- existing tube as a colonic tube until the existing tract matures completely before removal. These findings and plan also discussed with patients family member. . cc: Drs. iTrso Paige and Demond GORDON
[2016-07-13] MEDS: SODIUM CHLORIDE 0.9% INJ 10 ML SYR IV SCH (17:53)
[2016-07-13] MEDS ORDERED: FAT EMULSION IV 20% 500 ML IV SCH (18:00)
[2016-07-13] MEDS ORDERED: AMINO AC/ELECTROLYTE/DEX/CALC 2,000 ML IV SCH (18:00)
[2016-07-13] MEDS: OLANZapine 5 MG TAB PO SCH (20:36)
[2016-07-13] MEDS: SODIUM CHLORIDE 0.9% INJ 10 ML SYR IV PRN (21:39)
[2016-07-13 22:00] VITALS: BP 112/58
[2016-07-14] MEDS: PIPERACILLIN/TAZOBACTAM SOD 3.375 GM in D5W MINI-BAG PLUS 50 ML IV SCH ×4 (01:14→18:13)
[2016-07-14] MEDS: ALBUTEROL SULFATE 2.5 MG/0.5 ML INH NEB SOLN INH SCH ×6 (04:04→23:37)
[2016-07-14] MEDS: SODIUM CHLORIDE 0.9% INJ 10 ML SYR IV SCH ×2 (05:39→18:15)
[2016-07-14 06:00] VITALS: BP 102/68
[2016-07-14 06:04] LABS: BASO % 0.6 % (0.0-1.0); EOS # 0.1 K/mm3 (0.0-0.50); EOS % 1.7 % (0.0-3.0); LARGE UNSTAINED CELL # 0.1 K/mm3 (0.0-0.4); LARGE UNSTAINED CELL % 2.1 % (0.0-4.0); LYMPH # 0.9 K/mm3 (1.5-4.5); LYMPH % 24.2 % (24.0-44.0); MEAN CORPUSCULAR HEMOGLOBIN 28.7 pg (27.0-33.0); MEAN CORPUSCULAR HGB CONC 31.5 g/dl (32.0-36.5); MEAN CORPUSCULAR VOLUME 91.2 fl (80.0-96.0); MONO # 0.2 K/mm3 (0.0-0.8); MONO % 6.6 % (0.0-5.0); NEUTROPHILS # 2.4 K/mm3 (1.8-7.7); NEUTROPHILS % 64.9 % (36.0-66.0); PLATELET COUNT, AUTOMATED 154 k/mm3 (150-450); RED CELL DISTRIBUTION WIDTH 15.8 % (11.5-14.5); WHITE BLOOD COUNT 3.6 K/mm3 (4.0-10.0)
[2016-07-14] MEDS: HumaLOG INSULIN (NovoLOG) PER UNIT SC SCH ×3 (06:06→18:14)
[2016-07-14] MEDS: SINEMET 25-100 MG TAB PO SCH ×3 (06:06→18:13)
[2016-07-14 06:24] LABS: ANION GAP 7 MEQ/L (8-16); BLOOD UREA NITROGEN 6 MG/DL (7-18); CALCIUM LEVEL 7.6 MG/DL (8.8-10.2); CARBON DIOXIDE LEVEL 31 MEQ/L (21-32); CHLORIDE LEVEL 103 MEQ/L (98-107); GLOMERULAR FILTRATION RATE > 60.0 (>49); GLUCOSE, FASTING 202 MG/DL (80-110); MAGNESIUM LEVEL 1.8 MG/DL (1.8-2.4); SODIUM LEVEL 141 MEQ/L (136-145)
[2016-07-14] MEDS: BUDESONIDE 0.5 MG/2 ML INHALATION SUSPENSION INH SCH ×2 (07:27→19:48)
[2016-07-14] MEDS: SODIUM CHLORIDE 0.9% INJ 10 ML SYR IV PRN (07:36)
[2016-07-14] MEDS: ENOXAPARIN 40 MG/0.4 ML SYRINGE (J1650) SC SCH (09:28)
--- NOTE | 2016-07-14 11:14 | REP ---
Procedure: PICC line insertion with Heidi-Ailyn The procedure was performed under the direct supervision of Dr. Laird. The risks and benefits of the procedure were explained and informed consent was obtained by the health care proxy. The right basilic vein was localized using ultrasound guidance. The skin was prepped and draped in a sterile fashion. 2% lidocaine was used as a local anesthetic. Using ultrasound guidance the basilic vein was cannulated and a 0.018 guidewire was inserted and advanced to the SVC using fluoroscopic guidance. The needle was removed and a 5.5 [place]ian dilator and peel-away sheath was inserted over the guide wire. A 5.5 [place] dual lumen catheter was cut to length of 35 cm. The dilator was removed and the catheter was inserted over the guide wire with the tip ending in the SVC. The peel-away sheath was removed and the catheter was flushed with heparinized saline as per Hospital protocol. The catheter was affixed to the skin and a sterile dressing was applied. The the patient tolerated the procedure well and there were no immediate complications. 0.3 minutes of fluoro time was utilized for this procedure. Reviewed by ZAC Enamorado 07/13/2016 05:25 PSigned by Linden Laird MD 07/14/2016 10:53 A
[2016-07-14] MEDS: VANCOMYCIN HCL 1,000 MG, VIAL MATE ADAPTER 1 EACH in D5W 250 ML IV SCH (12:47)
[2016-07-14 14:00] VITALS: BP 115/59
--- NOTE | 2016-07-14 15:37 | IPNPDOC ---
Assessment/Plan Date Seen The patient was seen on 07/14/16. Problems Problems: (1) Feeding tube dysfunction Status: Acute Problem Text: * current feeding tube is not being used * will continue TPN through picc line * Dr corral will place a new feeding tube next week * continue meds only through NG tube (2) Aspiration pneumonia Status: Acute Response to Treatment: Improving Problem Text: on Zosyn and Vancomycin has a PEG in place, tube feed was held will continue with IVF. pt was seen by dr corral on 07/13, his peg tube when it was placed had pierced the colon pt was returned to floor and picc line was placed for TPN pt will have a new Jtube placed on sunday next week (3) Acute respiratory failure with hypoxemia Status: Resolved Problem Text: due to aspiration pneumonia will continue with zosyn to vancomycin Day 6 will d/c in am (4) MRSA bacteremia Status: Resolved Problem Text: Pt's B/C from 07/05 showed growth of MRSA in one tube and no growth in the other. Pt has a reported temperature of 101F on 07/05/16 blood cultures form 07/07 were negative X2 sets (5) Hypernatremia Status: Resolved (6) Diarrhea Status: Resolved Problem Text: Pt's stool is described as progressing from loose and watery to foul-smelling mustard-yellow. Suspect it is due to peg tube feedings but will check for C. difficile since the pt has been on multiple antibiotics. will change peg tube feeds to a low residual Optimental (7) Neck mass Status: Acute Problem Text: A mass was palpated on left side of neck during physical exam. Will ultrasound. (8) Anemia Status: Acute Problem Text: Pt's hgb today is 10.5. Going over the pt's past history, it appears his baseline hovers around a hbg of 10-11. Will transfuse if necessary otherwise, we will monitor his h/h through CBC in AM labs. (9) DM2 (diabetes mellitus, type 2) Status: Chronic Problem Text: Will stop all PO anti-diabetic medications upon hospitalization and put pt on sliding scale of insulin. (10) Dyslipidemia Status: Chronic Problem Text: Continue atorvastatin (11) BPH (benign prostatic hyperplasia) Status: Chronic Problem Text: Continue home medications for BPH (12) Down's syndrome Status: Chronic (13) Parkinsons disease Status: Chronic Problem Text: Continue current medications (14) Asthma Status: Chronic Problem Text: Continue albuterol PRN and nebulizer 4 times a day (15) DVT prophylaxis Status: Chronic Problem Text: Joann Shetty SEQs (16) Advance directive infomation pending evaluation Status: Acute Problem Text: Pt is a [facility] patient with developmental disability paperwork in process (17) Pressure injury of skin Status: Acute Problem Text: * pressure injury of coccyx, present on admission * progressed from stage 2 to stage 3 * continue to turn pt every 2 hours Plan / VTE VTE Prophylaxis Ordered?: Yes Plan / Urinary Catheter Reason for insertion/continuin: Critical Pt monitoring Plan IVF: Initiate Diet: Continue Current (Will continue with tube feeding) Activity: Continue Current Subjective Review of Systems CC/HPI The patient is a 61-year-old male admitted with a reason for visit of Mrsa Bacteremia. General: Reports: ROS Unobtainable Objective Physical Examination General Exam: Positive: Alert, Cooperative, No Acute Distress Eye Exam: Positive: Conjunctiva & lids normal, EOMI, PERRLA, Negative: Ptosis, Sclera icteric ENT Exam: Positive: Atraumatic, Nares Patent, Pharynx Normal, Tongue Midline, Negative: Mucous membr. moist/pink, Pharyngeal Edema Neck Exam: Positive: Other (Firm smooth nodule approx 1cm felt on the left that rises with swallowing. ), Supple, Negative: JVD Chest Exam: Positive: Clear to auscultation, Normal air movement, Wheezing ( Originating from upper airway) Heart Exam: Positive: Murmurs (Systolic), Normal S1, Normal S2, Rate Normal, Regular Rhythm Abdomen Exam: Positive: Mass (Liver edge palpated at RUQ), Normal bowel sounds , Other (Peg tube placement site is mildly erythematous with minimal serous drainage surrounding the tube. No evidence of acute infectious process, this is likely from irritation.), Soft, Tenderness (Tender to palpation on RUQ) Male Exam: Positive: Normal Genital Exam Extremity Exam: Positive: Normal pulses, Negative: Clubbing, Cyanosis, Edema Skin Exam: Positive: Nl turgor and temperature, Other skin issue (Mild reddening of skin over bilateral upper buttocks without any evidence of skin breakdown. ), Negative: Breakdown, Rash Vital Signs/I&O Vital Signs Date Time Temp Pulse Resp B/P Pulse Ox O2 Delivery O2 Flow Rate FiO2 07/14/16 14:00 97.5 87 18 115/59 97 Nasal Cannula 2.0 07/12/16 04:00 28 I&O- Last 24 Hours up to 6 AM 07/14/16 06:00 Intake Total 2300 ml Output Total 1200 ml Balance 1100 ml Laboratory Data Labs 24H Laboratory Tests 2 07/13/16 17:15: Bedside Glucose (Misc Panel) 123H 07/13/16 19:34: Bedside Glucose (Misc Panel) 169H 07/13/16 23:35: Bedside Glucose (Misc Panel) 267H 07/14/16 05:44: Anion Gap 7L, White Blood Count 3.6L, Red Blood Count 3.12L, Hemoglobin 8.9L, Hematocrit 28.4L, Mean Corpuscular Volume 91.2, Mean Corpuscular Hemoglobin 28.7 , Mean Corpuscular Hemoglobin Concent 31.5L, Red Cell Distribution Width 15.8H, Platelet Count 154, Neutrophils (%) (Auto) 64.9, Lymphocytes (%) (Auto) 24.2, Monocytes (%) (Auto) 6.6H, Eosinophils (%) (Auto) 1.7, Basophils (%) (Auto) 0.6 , Neutrophils # (Auto) 2.4, Lymphocytes # (Auto) 0.9L, Monocytes # (Auto) 0.2, Eosinophils # (Auto) 0.1, Basophils # (Auto) 0.0, Blood Urea Nitrogen 6#L, Creatinine 0.70, Sodium Level 141, Potassium Level 4.0, Chloride Level 103, Carbon Dioxide Level 31, Calcium Level 7.6L, Glomerular Filtration Rate > 60.0, Large Unclassified Cells # 0.1, Large Unclassified Cells % 2.1, Magnesium Level 1.8 07/14/16 05:46: Bedside Glucose (Misc Panel) 241H 07/14/16 11:37: Bedside Glucose (Misc Panel) 228H CBC/BMP Laboratory Tests 07/14/16 05:44 Calcium Level 7.6 L, Red Blood Count 3.12 L, Mean Corpuscular Volume 91.2, Mean Corpuscular Hemoglobin 28.7, Mean Corpuscular Hemoglobin Concent 31.5 L, Red Cell Distribution Width 15.8 H, Neutrophils (%) (Auto) 64.9, Lymphocytes (%) ( Auto) 24.2, Monocytes (%) (Auto) 6.6 H, Eosinophils (%) (Auto) 1.7, Basophils (% ) (Auto) 0.6, Neutrophils # (Auto) 2.4, Lymphocytes # (Auto) 0.9 L, Monocytes # (Auto) 0.2, Eosinophils # (Auto) 0.1, Basophils # (Auto) 0.0 FSBS Laboratory Tests Test 07/13/16 17:15 07/13/16 19:34 07/13/16 23:35 07/14/16 05:46 Range/Units Bedside Glucose (Misc Panel) 123 169 267 241 80-115 MG/DL Test 07/14/16 11:37 Range/Units Bedside Glucose (Misc Panel) 228 80-115 MG/DL Microbiology Microbiology 07/07/16 Blood Culture - Final, Complete NO GROWTH AFTER 5 DAYS 07/07/16 Blood Culture - Final, Complete NO GROWTH AFTER 5 DAYS 07/08/16 Gastrointestinal Tract Panel (PCR) - Final, Complete 07/09/16 MRSA Screen - Final, Complete Staph.aureus Methicillin Resis 07/07/16 Urine Culture - Final, Complete YOVANNY REAVES DO Jul 14, 2016 15:37
[2016-07-14] MEDS ORDERED: FAT EMULSION IV 20% 500 ML IV SCH (18:00)
[2016-07-14] MEDS ORDERED: AMINO AC/ELECTROLYTE/DEX/CALC 2,000 ML IV SCH (18:00)
[2016-07-14] MEDS: OLANZapine 5 MG TAB PO SCH (20:00)
[2016-07-14 22:00] VITALS: BP 148/60
[2016-07-15] MEDS: HumaLOG INSULIN (NovoLOG) PER UNIT SC SCH ×4 (00:09→18:24)
[2016-07-15] MEDS: VANCOMYCIN HCL 1,000 MG, VIAL MATE ADAPTER 1 EACH in D5W 250 ML IV SCH ×2 (00:12→12:57)
[2016-07-15] MEDS: PIPERACILLIN/TAZOBACTAM SOD 3.375 GM in D5W MINI-BAG PLUS 50 ML IV SCH ×4 (01:15→18:24)
[2016-07-15] MEDS: ALBUTEROL SULFATE 2.5 MG/0.5 ML INH NEB SOLN INH SCH ×6 (03:35→23:19)
[2016-07-15 06:00] VITALS: BP 114/56
[2016-07-15] MEDS: SODIUM CHLORIDE 0.9% INJ 10 ML SYR IV SCH ×2 (06:14→17:50)
[2016-07-15] MEDS: SINEMET 25-100 MG TAB PO SCH ×3 (06:23→18:24)
[2016-07-15 06:34] LABS: BASO % 0.9 % (0.0-1.0); EOS # 0.1 K/mm3 (0.0-0.50); LARGE UNSTAINED CELL # 0.1 K/mm3 (0.0-0.4); LARGE UNSTAINED CELL % 1.7 % (0.0-4.0); LYMPH # 1.1 K/mm3 (1.5-4.5); LYMPH % 24.4 % (24.0-44.0); MEAN CORPUSCULAR HEMOGLOBIN 29.1 pg (27.0-33.0); MEAN CORPUSCULAR HGB CONC 31.5 g/dl (32.0-36.5); MEAN CORPUSCULAR VOLUME 92.2 fl (80.0-96.0); MONO # 0.3 K/mm3 (0.0-0.8); MONO % 6.8 % (0.0-5.0); NEUTROPHILS # 2.9 K/mm3 (1.8-7.7); NEUTROPHILS % 64.1 % (36.0-66.0); PLATELET COUNT, AUTOMATED 157 k/mm3 (150-450); RED CELL DISTRIBUTION WIDTH 15.8 % (11.5-14.5); WHITE BLOOD COUNT 4.6 K/mm3 (4.0-10.0)
[2016-07-15 06:57] LABS: ALBUMIN 1.9 GM/DL (3.2-5.2); ALBUMIN/GLOBULIN RATIO 0.41 (1.00-1.93); ALKALINE PHOSPHATASE 39 U/L (45-117); ALT/SGPT 9 U/L (12-78); ANION GAP 5 MEQ/L (8-16); AST/SGOT 16 U/L (15-37); BILIRUBIN,TOTAL 0.2 MG/DL (0.2-1.0); BLOOD UREA NITROGEN 11 MG/DL (7-18); CARBON DIOXIDE LEVEL 34 MEQ/L (21-32); CHLORIDE LEVEL 99 MEQ/L (98-107); CREATININE FOR GFR 0.72 MG/DL (0.70-1.30); GLOMERULAR FILTRATION RATE > 60.0 (>49); GLUCOSE, FASTING 167 MG/DL (80-110); POTASSIUM SERUM 3.9 MEQ/L (3.5-5.1); SODIUM LEVEL 138 MEQ/L (136-145); TOTAL PROTEIN 6.5 GM/DL (6.4-8.2)
[2016-07-15] MEDS: BUDESONIDE 0.5 MG/2 ML INHALATION SUSPENSION INH SCH ×2 (07:27→19:55)
[2016-07-15] MEDS: ENOXAPARIN 40 MG/0.4 ML SYRINGE (J1650) SC SCH (08:40)
--- NOTE | 2016-07-15 13:12 | PHACANCOPD ---
PHARMACY VANCOMYCIN DOSING Pt Demographics Demographics Patient Age:61 , Weight:59.100 , Gender: male Adjusted Body Weight Date: 07/08/16, Adjusted Body Weight: [54.43] Kg ACTUAL WEIGHT Events Past 24 Hours Events Past 24 Hours: NO: Change in CrCl, Dialysis, Diuretic Therapy, Elevation in WBC, Fever, Other, Pending Diagnostics, Pending Procedures Vancomycin Vancomycin indication: MRSA BACTEREMIA Vancomycin Target Ranges: 15-20 mcg/ml Vancomycin Load Y/N: Yes Load Dose Date Time Vancomycin Load Dose: 1250MG Date: 07/07/16 Time: 1844 Vancomycin Dose Date: 07/15/16. Current Vancomycin Dose: [1GM IV Q12H@06] Date: 07/08/16. Current Vancomycin Dose: [1GM Q12H] Intermittent Dosing?: No Labs Micro Microbiology 07/07/16 Blood Culture - Final, Complete NO GROWTH AFTER 5 DAYS 07/07/16 Blood Culture - Final, Complete NO GROWTH AFTER 5 DAYS 07/08/16 Gastrointestinal Tract Panel (PCR) - Final, Complete 07/09/16 MRSA Screen - Final, Complete Staph.aureus Methicillin Resis 07/07/16 Urine Culture - Final, Complete Creatinine Clearance Date:07/08/16. Creatinine Clearance: [81.7]CALCULATED. Pending Labs Vancomycin trough due 07/08@2300 Assessment and Plan Maintaining Current Dose?: Yes Reason for dose change: Trough too high Pharmacist Note Pharmacist Note 07/15: Trough came back at 19.1 today. Due to him slowly accumulating Vancomycin after he received his noon dose he was rescheduled on Vancomycin 1gm IV q12h starting at 6am tomorrow morning. This is to allow him to clear some of the drug then we will resume his q12h dosing. We will continue to monitor and make adjustments as necessary. Date: 07/08/16. Pharmacist note:Vancomycin trough drawn this pm@2300 reported as 14.0:will continue w/current regimen and continue to monitor SCR and levels Date: 07/08/16. Pharmacist note:MRSA BACTEREMIA Patient scr=0.74 calculated crcl =81.7-given vancomycin 1250mg load in ed 07/07@1845,will continue w/1 gram IV Q12H and draw trough prior to the fourth dose( 07/08 @2300)-will continue to follow scr and monitor levels. [facility] Jul 15, 2016 13:12
--- NOTE | 2016-07-15 13:35 | IPNPDOC ---
Assessment/Plan Date Seen The patient was seen on 07/15/16. Problems Problems: (1) Feeding tube dysfunction Status: Acute Problem Text: * current feeding tube is not being used * will continue TPN through picc line * Dr corral will place a new feeding tube next week * continue meds only through NG tube (2) Aspiration pneumonia Status: Acute Response to Treatment: Improving Problem Text: on Zosyn and Vancomycin has a PEG in place, tube feed was held will continue with IVF. pt was seen by dr corral on 07/13, his peg tube when it was placed had pierced the colon pt was returned to floor and picc line was placed for TPN pt will have a new Jtube placed on sunday next week (3) Acute respiratory failure with hypoxemia Status: Resolved Problem Text: due to aspiration pneumonia will continue with zosyn to vancomycin Day 6 (4) MRSA bacteremia Status: Resolved Problem Text: Pt's B/C from 07/05 showed growth of MRSA in one tube and no growth in the other. Pt has a reported temperature of 101F on 07/05/16 blood cultures form 07/07 were negative X2 sets (5) Hypernatremia Status: Resolved (6) Diarrhea Status: Resolved Problem Text: Pt's stool is described as progressing from loose and watery to foul-smelling mustard-yellow. Suspect it is due to peg tube feedings but will check for C. difficile since the pt has been on multiple antibiotics. will change peg tube feeds to a low residual Optimental (7) Neck mass Status: Acute Problem Text: A mass was palpated on left side of neck during physical exam. Will ultrasound. (8) Anemia Status: Acute Problem Text: Pt's hgb today is 10.5. Going over the pt's past history, it appears his baseline hovers around a hbg of 10-11. Will transfuse if necessary otherwise, we will monitor his h/h through CBC in AM labs. (9) DM2 (diabetes mellitus, type 2) Status: Chronic Problem Text: Will stop all PO anti-diabetic medications upon hospitalization and put pt on sliding scale of insulin. (10) Dyslipidemia Status: Chronic Problem Text: Continue atorvastatin (11) BPH (benign prostatic hyperplasia) Status: Chronic Problem Text: Continue home medications for BPH (12) Down's syndrome Status: Chronic (13) Parkinsons disease Status: Chronic Problem Text: Continue current medications (14) Asthma Status: Chronic Problem Text: Continue albuterol PRN and nebulizer 4 times a day (15) DVT prophylaxis Status: Chronic Problem Text: Joann Shetty SEQs (16) Advance directive infomation pending evaluation Status: Acute Problem Text: Pt is a new [facility] patient with developmental disability paperwork in process (17) Pressure injury of skin Status: Acute Problem Text: * pressure injury of coccyx, present on admission * progressed from stage 2 to stage 3 * continue to turn pt every 2 hours Plan / VTE VTE Prophylaxis Ordered?: Yes Plan / Urinary Catheter Reason for insertion/continuin: Critical Pt monitoring Plan IVF: Initiate Diet: Continue Current (Will continue with tube feeding) Activity: Continue Current Subjective Review of Systems CC/HPI The patient is a 61-year-old male admitted with a reason for visit of Mrsa Bacteremia. General: Reports: ROS Unobtainable Objective Physical Examination General Exam: Positive: Alert, Cooperative, No Acute Distress Eye Exam: Positive: Conjunctiva & lids normal, EOMI, PERRLA, Negative: Ptosis, Sclera icteric ENT Exam: Positive: Atraumatic, Nares Patent, Pharynx Normal, Tongue Midline, Negative: Mucous membr. moist/pink, Pharyngeal Edema Neck Exam: Positive: Other (Firm smooth nodule approx 1cm felt on the left that rises with swallowing. ), Supple, Negative: JVD Chest Exam: Positive: Clear to auscultation, Normal air movement, Wheezing ( Originating from upper airway) Heart Exam: Positive: Murmurs (Systolic), Normal S1, Normal S2, Rate Normal, Regular Rhythm Abdomen Exam: Positive: Mass (Liver edge palpated at RUQ), Normal bowel sounds , Other (Peg tube placement site is mildly erythematous with minimal serous drainage surrounding the tube. No evidence of acute infectious process, this is likely from irritation.), Soft, Tenderness (Tender to palpation on RUQ) Male Exam: Positive: Normal Genital Exam Extremity Exam: Positive: Normal pulses, Negative: Clubbing, Cyanosis, Edema Skin Exam: Positive: Nl turgor and temperature, Other skin issue (Mild reddening of skin over bilateral upper buttocks without any evidence of skin breakdown. ), Negative: Breakdown, Rash Vital Signs/I&O Vital Signs Date Time Temp Pulse Resp B/P Pulse Ox O2 Delivery O2 Flow Rate FiO2 2/4/17 09:00 Nasal Cannula 2.0 07/15/16 06:00 96.5 77 17 114/56 98 07/12/16 04:00 28 I&O- Last 24 Hours up to 6 AM 07/15/16 05:59 Intake Total 2850 ml Output Total 0 ml Balance 2850 ml Laboratory Data Labs 24H Laboratory Tests 2 07/14/16 17:27: Bedside Glucose (Misc Panel) 208H 07/15/16 00:02: Bedside Glucose (Misc Panel) 204H 07/15/16 06:12: Bedside Glucose (Misc Panel) 184H 07/15/16 06:19: Blood Urea Nitrogen 11#, Creatinine 0.72, Sodium Level 138, Potassium Level 3.9 , Chloride Level 99, Carbon Dioxide Level 34H, Calcium Level 8.0L, Aspartate Amino Transf (AST/SGOT) 16, Alanine Aminotransferase (ALT/SGPT) 9L, Alkaline Phosphatase 39L, Total Bilirubin 0.2, Total Protein 6.5, Albumin 1.9L, Albumin/ Globulin Ratio 0.41L, Anion Gap 5L, White Blood Count 4.6, Red Blood Count 3.34L , Hemoglobin 9.7L, Hematocrit 30.8L, Mean Corpuscular Volume 92.2, Mean Corpuscular Hemoglobin 29.1, Mean Corpuscular Hemoglobin Concent 31.5L, Red Cell Distribution Width 15.8H, Platelet Count 157, Neutrophils (%) (Auto) 64.1, Lymphocytes (%) (Auto) 24.4, Monocytes (%) (Auto) 6.8H, Eosinophils (%) (Auto) 2.0, Basophils (%) (Auto) 0.9, Neutrophils # (Auto) 2.9, Lymphocytes # (Auto) 1.1L, Monocytes # (Auto) 0.3, Eosinophils # (Auto) 0.1, Basophils # (Auto) 0.0, Glomerular Filtration Rate > 60.0, Large Unclassified Cells # 0.1, Large Unclassified Cells % 1.7 07/15/16 12:03: Vancomycin Level Trough 19.1 07/15/16 12:27: Bedside Glucose (Misc Panel) 179H CBC/BMP Laboratory Tests 07/15/16 06:19 Calcium Level 8.0 L, Aspartate Amino Transf (AST/SGOT) 16, Alanine Aminotransferase (ALT/SGPT) 9 L, Alkaline Phosphatase 39 L, Total Bilirubin 0.2 , Total Protein 6.5, Albumin 1.9 L, Red Blood Count 3.34 L, Mean Corpuscular Volume 92.2, Mean Corpuscular Hemoglobin 29.1, Mean Corpuscular Hemoglobin Concent 31.5 L, Red Cell Distribution Width 15.8 H, Neutrophils (%) (Auto) 64.1 , Lymphocytes (%) (Auto) 24.4, Monocytes (%) (Auto) 6.8 H, Eosinophils (%) (Auto ) 2.0, Basophils (%) (Auto) 0.9, Neutrophils # (Auto) 2.9, Lymphocytes # (Auto) 1.1 L, Monocytes # (Auto) 0.3, Eosinophils # (Auto) 0.1, Basophils # (Auto) 0.0 FSBS Laboratory Tests Test 07/14/16 17:27 07/15/16 00:02 07/15/16 06:12 07/15/16 12:27 Range/Units Bedside Glucose (Misc Panel) 208 204 184 179 80-115 MG/DL Microbiology Microbiology 07/07/16 Blood Culture - Final, Complete NO GROWTH AFTER 5 DAYS 07/07/16 Blood Culture - Final, Complete NO GROWTH AFTER 5 DAYS 07/08/16 Gastrointestinal Tract Panel (PCR) - Final, Complete 07/09/16 MRSA Screen - Final, Complete Staph.aureus Methicillin Resis 07/07/16 Urine Culture - Final, Complete YOVANNY REAVES DO Jul 15, 2016 13:35
[2016-07-15 14:00] VITALS: BP 121/59
[2016-07-15] MEDS ORDERED: AMINO AC/ELECTROLYTE/DEX/CALC 2,000 ML IV SCH (18:00)
[2016-07-15] MEDS ORDERED: FAT EMULSION IV 20% 500 ML IV SCH (18:00)
[2016-07-15] MEDS: OLANZapine 5 MG TAB PO SCH (20:33)
[2016-07-15 22:00] VITALS: BP 109/57
[2016-07-16] MEDS: HumaLOG INSULIN (NovoLOG) PER UNIT SC SCH ×4 (00:22→18:21)
[2016-07-16] MEDS: PIPERACILLIN/TAZOBACTAM SOD 3.375 GM in D5W MINI-BAG PLUS 50 ML IV SCH ×4 (01:16→18:23)
[2016-07-16] MEDS: ALBUTEROL SULFATE 2.5 MG/0.5 ML INH NEB SOLN INH SCH ×6 (03:17→23:45)
[2016-07-16 06:00] VITALS: BP 109/58
[2016-07-16] MEDS: VANCOMYCIN HCL 1,000 MG, VIAL MATE ADAPTER 1 EACH in D5W 250 ML IV SCH ×2 (06:02→18:34)
[2016-07-16] MEDS: SODIUM CHLORIDE 0.9% INJ 10 ML SYR IV SCH ×2 (06:02→18:22)
[2016-07-16] MEDS: SINEMET 25-100 MG TAB PO SCH ×3 (06:08→18:22)
[2016-07-16 06:29] LABS: BASO % 0.7 % (0.0-1.0); EOS # 0.1 K/mm3 (0.0-0.50); EOS % 2.7 % (0.0-3.0); LARGE UNSTAINED CELL # 0.1 K/mm3 (0.0-0.4); LARGE UNSTAINED CELL % 2.2 % (0.0-4.0); LYMPH # 1.1 K/mm3 (1.5-4.5); LYMPH % 26.3 % (24.0-44.0); MEAN CORPUSCULAR HEMOGLOBIN 28.7 pg (27.0-33.0); MEAN CORPUSCULAR HGB CONC 31.8 g/dl (32.0-36.5); MEAN CORPUSCULAR VOLUME 90.4 fl (80.0-96.0); MONO # 0.3 K/mm3 (0.0-0.8); MONO % 6.9 % (0.0-5.0); NEUTROPHILS # 2.6 K/mm3 (1.8-7.7); NEUTROPHILS % 61.2 % (36.0-66.0); PLATELET COUNT, AUTOMATED 171 k/mm3 (150-450); RED CELL DISTRIBUTION WIDTH 15.9 % (11.5-14.5); WHITE BLOOD COUNT 4.3 K/mm3 (4.0-10.0)
[2016-07-16 06:40] LABS: ALBUMIN 1.9 GM/DL (3.2-5.2); ALKALINE PHOSPHATASE 45 U/L (45-117); ALT/SGPT 10 U/L (12-78); ANION GAP 7 MEQ/L (8-16); AST/SGOT 16 U/L (15-37); BILIRUBIN,TOTAL 0.2 MG/DL (0.2-1.0); BLOOD UREA NITROGEN 14 MG/DL (7-18); CALCIUM LEVEL 8.1 MG/DL (8.8-10.2); CARBON DIOXIDE LEVEL 34 MEQ/L (21-32); CHLORIDE LEVEL 98 MEQ/L (98-107); GLOMERULAR FILTRATION RATE > 60.0 (>49); GLUCOSE, FASTING 189 MG/DL (80-110); POTASSIUM SERUM 4.1 MEQ/L (3.5-5.1); SODIUM LEVEL 139 MEQ/L (136-145); TOTAL PROTEIN 6.6 GM/DL (6.4-8.2)
[2016-07-16] MEDS: BUDESONIDE 0.5 MG/2 ML INHALATION SUSPENSION INH SCH ×2 (07:30→19:42)
[2016-07-16] MEDS: ENOXAPARIN 40 MG/0.4 ML SYRINGE (J1650) SC SCH (09:36)
--- NOTE | 2016-07-16 12:15 | IPNPDOC ---
Assessment/Plan Date Seen The patient was seen on 07/16/16. Problems Problems: (1) Feeding tube dysfunction Status: Acute Problem Text: * current feeding tube is not being used * will continue TPN through picc line * Dr corral will place a new feeding tube next week * continue meds only through NG tube (2) Aspiration pneumonia Status: Acute Response to Treatment: Improving Problem Text: on Zosyn and Vancomycin has a PEG in place, tube feed was held will continue with IVF. pt was seen by dr corral on 07/13, his peg tube when it was placed had pierced the colon pt was returned to floor and picc line was placed for TPN pt will have a new Jtube placed on sunday next week (3) Acute respiratory failure with hypoxemia Status: Resolved Problem Text: due to aspiration pneumonia will continue with zosyn to vancomycin Day 6 (4) MRSA bacteremia Status: Resolved Problem Text: Pt's B/C from 07/05 showed growth of MRSA in one tube and no growth in the other. Pt has a reported temperature of 101F on 07/05/16 blood cultures form 07/07 were negative X2 sets (5) Hypernatremia Status: Resolved (6) Diarrhea Status: Resolved Problem Text: Pt's stool is described as progressing from loose and watery to foul-smelling mustard-yellow. Suspect it is due to peg tube feedings but will check for C. difficile since the pt has been on multiple antibiotics. will change peg tube feeds to a low residual Optimental (7) Neck mass Status: Acute Problem Text: A mass was palpated on left side of neck during physical exam. Will ultrasound. (8) Anemia Status: Acute Problem Text: Pt's hgb today is 10.5. Going over the pt's past history, it appears his baseline hovers around a hbg of 10-11. Will transfuse if necessary otherwise, we will monitor his h/h through CBC in AM labs. (9) DM2 (diabetes mellitus, type 2) Status: Chronic Problem Text: Will stop all PO anti-diabetic medications upon hospitalization and put pt on sliding scale of insulin. (10) Dyslipidemia Status: Chronic Problem Text: Continue atorvastatin (11) BPH (benign prostatic hyperplasia) Status: Chronic Problem Text: Continue home medications for BPH (12) Down's syndrome Status: Chronic (13) Parkinsons disease Status: Chronic Problem Text: Continue current medications (14) Asthma Status: Chronic Problem Text: Continue albuterol PRN and nebulizer 4 times a day (15) DVT prophylaxis Status: Chronic Problem Text: Joann Shetty SEQs (16) Advance directive infomation pending evaluation Status: Acute Problem Text: Pt is a [id number] patient with developmental disability paperwork in process (17) Pressure injury of skin Status: Acute Problem Text: * pressure injury of coccyx, present on admission * progressed from stage 2 to stage 3 * continue to turn pt every 2 hours Plan / VTE VTE Prophylaxis Ordered?: Yes Plan / Urinary Catheter Reason for insertion/continuin: Critical Pt monitoring Plan IVF: Initiate Diet: Continue Current (Will continue with tube feeding) Activity: Continue Current Subjective Review of Systems CC/HPI The patient is a 61-year-old male admitted with a reason for visit of Mrsa Bacteremia. General: Reports: ROS Unobtainable Objective Physical Examination General Exam: Positive: Alert, Cooperative, No Acute Distress Eye Exam: Positive: Conjunctiva & lids normal, EOMI, PERRLA, Negative: Ptosis, Sclera icteric ENT Exam: Positive: Atraumatic, Nares Patent, Pharynx Normal, Tongue Midline, Negative: Mucous membr. moist/pink, Pharyngeal Edema Neck Exam: Positive: Other (Firm smooth nodule approx 1cm felt on the left that rises with swallowing. ), Supple, Negative: JVD Chest Exam: Positive: Clear to auscultation, Normal air movement, Wheezing ( Originating from upper airway) Heart Exam: Positive: Murmurs (Systolic), Normal S1, Normal S2, Rate Normal, Regular Rhythm Abdomen Exam: Positive: Mass (Liver edge palpated at RUQ), Normal bowel sounds , Other (Peg tube placement site is mildly erythematous with minimal serous drainage surrounding the tube. No evidence of acute infectious process, this is likely from irritation.), Soft, Tenderness (Tender to palpation on RUQ) Male Exam: Positive: Normal Genital Exam Extremity Exam: Positive: Normal pulses, Negative: Clubbing, Cyanosis, Edema Skin Exam: Positive: Nl turgor and temperature, Other skin issue (Mild reddening of skin over bilateral upper buttocks without any evidence of skin breakdown. ), Negative: Breakdown, Rash Vital Signs/I&O Vital Signs Date Time Temp Pulse Resp B/P Pulse Ox O2 Delivery O2 Flow Rate FiO2 2/5/17 09:10 Nasal Cannula 2.0 07/16/16 06:00 97.0 69 18 109/58 96 07/12/16 04:00 28 I&O- Last 24 Hours up to 6 AM 07/16/16 06:00 Intake Total 940 ml Output Total 0 ml Balance 940 ml Laboratory Data Labs 24H Laboratory Tests 2 07/15/16 12:27: Bedside Glucose (Misc Panel) 179H 07/15/16 17:25: Bedside Glucose (Misc Panel) 308H 07/15/16 23:58: Bedside Glucose (Misc Panel) 157H 07/16/16 06:00: Bedside Glucose (Misc Panel) 192H 07/16/16 06:05: Blood Urea Nitrogen 14, Creatinine 0.80, Sodium Level 139, Potassium Level 4.1, Chloride Level 98, Carbon Dioxide Level 34H, Calcium Level 8.1L, Aspartate Amino Transf (AST/SGOT) 16, Alanine Aminotransferase (ALT/SGPT) 10L, Alkaline Phosphatase 45, Total Bilirubin 0.2, Total Protein 6.6, Albumin 1.9L, Albumin/ Globulin Ratio 0.40L, Anion Gap 7L, White Blood Count 4.3, Red Blood Count 3.45L , Hemoglobin 9.9L, Hematocrit 31.2L, Mean Corpuscular Volume 90.4, Mean Corpuscular Hemoglobin 28.7, Mean Corpuscular Hemoglobin Concent 31.8L, Red Cell Distribution Width 15.9H, Platelet Count 171, Neutrophils (%) (Auto) 61.2, Lymphocytes (%) (Auto) 26.3, Monocytes (%) (Auto) 6.9H, Eosinophils (%) (Auto) 2.7, Basophils (%) (Auto) 0.7, Neutrophils # (Auto) 2.6, Lymphocytes # (Auto) 1.1L, Monocytes # (Auto) 0.3, Eosinophils # (Auto) 0.1, Basophils # (Auto) 0.0, Glomerular Filtration Rate > 60.0, Large Unclassified Cells # 0.1, Large Unclassified Cells % 2.2 07/16/16 11:36: Bedside Glucose (Misc Panel) 211H CBC/BMP Laboratory Tests 07/16/16 06:05 Calcium Level 8.1 L, Aspartate Amino Transf (AST/SGOT) 16, Alanine Aminotransferase (ALT/SGPT) 10 L, Alkaline Phosphatase 45, Total Bilirubin 0.2, Total Protein 6.6, Albumin 1.9 L, Red Blood Count 3.45 L, Mean Corpuscular Volume 90.4, Mean Corpuscular Hemoglobin 28.7, Mean Corpuscular Hemoglobin Concent 31.8 L, Red Cell Distribution Width 15.9 H, Neutrophils (%) (Auto) 61.2 , Lymphocytes (%) (Auto) 26.3, Monocytes (%) (Auto) 6.9 H, Eosinophils (%) (Auto ) 2.7, Basophils (%) (Auto) 0.7, Neutrophils # (Auto) 2.6, Lymphocytes # (Auto) 1.1 L, Monocytes # (Auto) 0.3, Eosinophils # (Auto) 0.1, Basophils # (Auto) 0.0 FSBS Laboratory Tests Test 07/15/16 12:27 07/15/16 17:25 07/15/16 23:58 07/16/16 06:00 Range/Units Bedside Glucose (Misc Panel) 179 308 157 192 80-115 MG/DL Test 07/16/16 11:36 Range/Units Bedside Glucose (Misc Panel) 211 80-115 MG/DL Microbiology Microbiology 07/07/16 Blood Culture - Final, Complete NO GROWTH AFTER 5 DAYS 07/07/16 Blood Culture - Final, Complete NO GROWTH AFTER 5 DAYS 07/08/16 Gastrointestinal Tract Panel (PCR) - Final, Complete 07/09/16 MRSA Screen - Final, Complete Staph.aureus Methicillin Resis 07/07/16 Urine Culture - Final, Complete YOVANNY REAVES DO Jul 16, 2016 12:15
[2016-07-16] MEDS: SODIUM CHLORIDE 0.9% INJ 10 ML SYR IV PRN (13:45)
[2016-07-16 14:00] VITALS: BP 114/70
[2016-07-16] MEDS ORDERED: FAT EMULSION IV 20% 500 ML IV SCH (18:00)
[2016-07-16] MEDS ORDERED: AMINO AC/ELECTROLYTE/DEX/CALC 2,000 ML IV SCH (18:00)
[2016-07-16] MEDS ORDERED: HumaLOG INSULIN (NovoLOG) PER UNIT SC SCH (18:00)
[2016-07-16] MEDS: OLANZapine 5 MG TAB PO SCH (20:46)
[2016-07-16 22:00] VITALS: BP 113/53
[2016-07-17] MEDS: PIPERACILLIN/TAZOBACTAM SOD 3.375 GM in D5W MINI-BAG PLUS 50 ML IV SCH ×4 (00:42→17:53)
[2016-07-17] MEDS: HumaLOG INSULIN (NovoLOG) PER UNIT SC SCH ×4 (00:43→17:21)
[2016-07-17] MEDS: ALBUTEROL SULFATE 2.5 MG/0.5 ML INH NEB SOLN INH SCH ×6 (03:56→23:49)
[2016-07-17] MEDS: SODIUM CHLORIDE 0.9% INJ 10 ML SYR IV SCH ×2 (05:47→17:52)
[2016-07-17] MEDS: VANCOMYCIN HCL 1,000 MG, VIAL MATE ADAPTER 1 EACH in D5W 250 ML IV SCH ×2 (05:47→17:53)
[2016-07-17] MEDS: SINEMET 25-100 MG TAB PO SCH ×3 (05:48→17:51)
[2016-07-17 06:00] VITALS: BP 100/50
[2016-07-17 06:20] LABS: MEAN CORPUSCULAR HEMOGLOBIN 29.2 pg (27.0-33.0); MEAN CORPUSCULAR HGB CONC 32.2 g/dl (32.0-36.5); MEAN CORPUSCULAR VOLUME 90.6 fl (80.0-96.0); RED CELL DISTRIBUTION WIDTH 16.1 % (11.5-14.5)
[2016-07-17 06:49] LABS: ANION GAP 4 MEQ/L (8-16); BLOOD UREA NITROGEN 15 MG/DL (7-18); CALCIUM LEVEL 8.2 MG/DL (8.8-10.2); CARBON DIOXIDE LEVEL 34 MEQ/L (21-32); CHLORIDE LEVEL 99 MEQ/L (98-107); CREATININE FOR GFR 0.86 MG/DL (0.70-1.30); GLOMERULAR FILTRATION RATE > 60.0 (>49); GLUCOSE, FASTING 114 MG/DL (80-110); MAGNESIUM LEVEL 2.2 MG/DL (1.8-2.4); SODIUM LEVEL 137 MEQ/L (136-145)
[2016-07-17] MEDS: BUDESONIDE 0.5 MG/2 ML INHALATION SUSPENSION INH SCH ×2 (08:02→20:16)
[2016-07-17] MEDS: ENOXAPARIN 40 MG/0.4 ML SYRINGE (J1650) SC SCH (08:02)
[2016-07-17 13:45] VITALS: BP 90/58
[2016-07-17] MEDS ORDERED: NS 1,000 ML IV SCH (14:00)
[2016-07-17] MEDS ORDERED: FAT EMULSION IV 20% 500 ML IV SCH (18:00)
[2016-07-17] MEDS ORDERED: MULTIVITAMIN -ADULT INJECTION 10 ML, CR/CU/SE/MN/ZN INJ 1 ML in AMINO AC/ELECTROLYTE/DE... IV SCH (18:00)
[2016-07-17 18:29] VITALS: BP 104/55
[2016-07-17] MEDS: OLANZapine 5 MG TAB PO SCH (20:10)
[2016-07-17 22:00] VITALS: BP 101/50
--- NOTE | 2016-07-17 23:00 | IPNPDOC ---
Assessment/Plan Date Seen The patient was seen on 07/17/16. Problems Problems: (1) Feeding tube dysfunction Status: Acute Problem Text: * current feeding tube is not being used * will continue TPN through picc line * Dr corral will place a new feeding tube next week * continue meds only through NG tube (2) Aspiration pneumonia Status: Acute Response to Treatment: Improving Problem Text: on Zosyn and Vancomycin has a PEG in place, tube feed was held will continue with IVF. pt was seen by dr corral on 07/13, his peg tube when it was placed had pierced the colon pt was returned to floor and picc line was placed for TPN pt will have a new Jtube placed on sunday next week (3) Acute respiratory failure with hypoxemia Status: Resolved Problem Text: due to aspiration pneumonia will continue with zosyn to vancomycin Day 6 (4) MRSA bacteremia Status: Resolved Problem Text: Pt's B/C from 07/05 showed growth of MRSA in one tube and no growth in the other. Pt has a reported temperature of 101F on 07/05/16 blood cultures form 07/07 were negative X2 sets (5) Hypernatremia Status: Resolved (6) Diarrhea Status: Resolved Problem Text: Pt's stool is described as progressing from loose and watery to foul-smelling mustard-yellow. Suspect it is due to peg tube feedings but will check for C. difficile since the pt has been on multiple antibiotics. will change peg tube feeds to a low residual Optimental (7) Neck mass Status: Acute Problem Text: A mass was palpated on left side of neck during physical exam. Will ultrasound. (8) Anemia Status: Acute Problem Text: Pt's hgb today is 10.5. Going over the pt's past history, it appears his baseline hovers around a hbg of 10-11. Will transfuse if necessary otherwise, we will monitor his h/h through CBC in AM labs. (9) DM2 (diabetes mellitus, type 2) Status: Chronic Problem Text: Will stop all PO anti-diabetic medications upon hospitalization and put pt on sliding scale of insulin. (10) Dyslipidemia Status: Chronic Problem Text: Continue atorvastatin (11) BPH (benign prostatic hyperplasia) Status: Chronic Problem Text: Continue home medications for BPH (12) Down's syndrome Status: Chronic (13) Parkinsons disease Status: Chronic Problem Text: Continue current medications (14) Asthma Status: Chronic Problem Text: Continue albuterol PRN and nebulizer 4 times a day (15) DVT prophylaxis Status: Chronic Problem Text: Joann Shetty SEQs (16) Advance directive infomation pending evaluation Status: Acute Problem Text: Pt is a [facility] patient with developmental disability paperwork in process (17) Pressure injury of skin Status: Acute Problem Text: * pressure injury of coccyx, present on admission * progressed from stage 2 to stage 3 * continue to turn pt every 2 hours Plan / VTE VTE Prophylaxis Ordered?: Yes Plan / Urinary Catheter Reason for insertion/continuin: Critical Pt monitoring Plan IVF: Initiate Diet: Continue Current (Will continue with tube feeding) Activity: Continue Current Subjective Review of Systems CC/HPI The patient is a 61-year-old male admitted with a reason for visit of Mrsa Bacteremia. Objective Physical Examination General Exam: Positive: Alert, Cooperative, No Acute Distress Eye Exam: Positive: Conjunctiva & lids normal, EOMI, PERRLA, Negative: Ptosis, Sclera icteric ENT Exam: Positive: Atraumatic, Nares Patent, Pharynx Normal, Tongue Midline, Negative: Mucous membr. moist/pink, Pharyngeal Edema Neck Exam: Positive: Other (Firm smooth nodule approx 1cm felt on the left that rises with swallowing. ), Supple, Negative: JVD Chest Exam: Positive: Clear to auscultation, Normal air movement, Wheezing ( Originating from upper airway) Heart Exam: Positive: Murmurs (Systolic), Normal S1, Normal S2, Rate Normal, Regular Rhythm Abdomen Exam: Positive: Mass (Liver edge palpated at RUQ), Normal bowel sounds , Other (Peg tube placement site is mildly erythematous with minimal serous drainage surrounding the tube. No evidence of acute infectious process, this is likely from irritation.), Soft, Tenderness (Tender to palpation on RUQ) Male Exam: Positive: Normal Genital Exam Extremity Exam: Positive: Normal pulses, Negative: Clubbing, Cyanosis, Edema Skin Exam: Positive: Nl turgor and temperature, Other skin issue (Mild reddening of skin over bilateral upper buttocks without any evidence of skin breakdown. ), Negative: Breakdown, Rash Vital Signs/I&O Vital Signs Date Time Temp Pulse Resp B/P Pulse Ox O2 Delivery O2 Flow Rate FiO2 07/17/16 22:00 97.5 82 18 101/50 98 Nasal Cannula 2.0 07/12/16 04:00 28 I&O- Last 24 Hours up to 6 AM 07/17/16 06:00 Intake Total 3350 ml Output Total 0 ml Balance 3350 ml Laboratory Data Labs 24H Laboratory Tests 2 07/17/16 00:20: Bedside Glucose (Misc Panel) 260H 07/17/16 06:08: Anion Gap 4L, C-Reactive Protein, Quantitative 1.30H, Blood Urea Nitrogen 15, Creatinine 0.86, Sodium Level 137, Potassium Level 4.0, Chloride Level 99, Carbon Dioxide Level 34H, Calcium Level 8.2L, Glomerular Filtration Rate > 60.0 , Magnesium Level 2.2 07/17/16 06:52: Bedside Glucose (Misc Panel) 134H 07/17/16 11:45: Bedside Glucose (Misc Panel) 144H 07/17/16 16:31: Bedside Glucose (Misc Panel) 123H CBC/BMP Laboratory Tests 07/17/16 06:08 Calcium Level 8.2 L, Red Blood Count 3.53 L, Mean Corpuscular Volume 90.6, Mean Corpuscular Hemoglobin 29.2, Mean Corpuscular Hemoglobin Concent 32.2, Red Cell Distribution Width 16.1 H FSBS Laboratory Tests Test 07/17/16 00:20 07/17/16 06:52 07/17/16 11:45 07/17/16 16:31 Range/Units Bedside Glucose (Misc Panel) 260 134 144 123 80-115 MG/DL Microbiology Microbiology 07/07/16 Blood Culture - Final, Complete NO GROWTH AFTER 5 DAYS 07/07/16 Blood Culture - Final, Complete NO GROWTH AFTER 5 DAYS 07/17/16 Clostridium difficile (PCR), Received Pending 07/08/16 Gastrointestinal Tract Panel (PCR) - Final, Complete 07/09/16 MRSA Screen - Final, Complete Staph.aureus Methicillin Resis 07/07/16 Urine Culture - Final, Complete YOVANNY REAVES DO Jul 17, 2016 23:00
[2016-07-18] MEDS: HumaLOG INSULIN (NovoLOG) PER UNIT SC SCH ×4 (00:20→17:19)
[2016-07-18] MEDS: PIPERACILLIN/TAZOBACTAM SOD 3.375 GM in D5W MINI-BAG PLUS 50 ML IV SCH ×4 (00:22→18:53)
[2016-07-18] MEDS: SODIUM CHLORIDE 0.9% INJ 10 ML SYR IV PRN ×2 (01:39→20:06)
[2016-07-18] MEDS: ALBUTEROL SULFATE 2.5 MG/0.5 ML INH NEB SOLN INH SCH ×6 (03:56→23:34)
[2016-07-18] MEDS: SODIUM CHLORIDE 0.9% INJ 10 ML SYR IV SCH ×2 (05:04→17:34)
[2016-07-18] MEDS: SINEMET 25-100 MG TAB PO SCH ×3 (05:04→18:53)
[2016-07-18] MEDS: VANCOMYCIN HCL 1,000 MG, VIAL MATE ADAPTER 1 EACH in D5W 250 ML IV SCH ×2 (05:29→17:20)
[2016-07-18 05:34] LABS: MEAN CORPUSCULAR HEMOGLOBIN 28.9 pg (27.0-33.0); MEAN CORPUSCULAR HGB CONC 31.8 g/dl (32.0-36.5); MEAN CORPUSCULAR VOLUME 90.9 fl (80.0-96.0); RED CELL DISTRIBUTION WIDTH 16.1 % (11.5-14.5); WHITE BLOOD COUNT 3.4 K/mm3 (4.0-10.0)
[2016-07-18 05:55] LABS: ANION GAP 4 MEQ/L (8-16); BLOOD UREA NITROGEN 15 MG/DL (7-18); CARBON DIOXIDE LEVEL 35 MEQ/L (21-32); CHLORIDE LEVEL 100 MEQ/L (98-107); CREATININE FOR GFR 0.84 MG/DL (0.70-1.30); GLOMERULAR FILTRATION RATE > 60.0 (>49); GLUCOSE, FASTING 193 MG/DL (80-110); MAGNESIUM LEVEL 2.2 MG/DL (1.8-2.4); SODIUM LEVEL 139 MEQ/L (136-145)
[2016-07-18 06:00] VITALS: BP 110/69
[2016-07-18] MEDS: BUDESONIDE 0.5 MG/2 ML INHALATION SUSPENSION INH SCH ×2 (07:33→20:13)
[2016-07-18] MEDS: ENOXAPARIN 40 MG/0.4 ML SYRINGE (J1650) SC SCH (08:25)
--- NOTE | 2016-07-18 11:29 | IPNPDOC ---
Assessment/Plan Date Seen The patient was seen on 07/18/16. Problems Problems: (1) Feeding tube dysfunction Status: Acute Problem Text: * Has gastro-colonic fistula. TO be managed nonsurgically * current feeding tube is not being used * will continue TPN through picc line * Dr corral will place a new feeding this weeK * continue meds only through NG tube (2) Aspiration pneumonia Status: Resolved Problem Text: on Zosyn and Vancomycin now day 10. pt was seen by dr corral on 07/13, his peg tube when it was placed had pierced the colon pt was returned to floor and picc line was placed for TPN pt will have a new Jtube placed this week. (3) Acute respiratory failure with hypoxemia Status: Resolved Problem Text: due to aspiration pneumonia will continue with zosyn to vancomycin Day 6 (4) MRSA bacteremia Status: Resolved Problem Text: Pt's B/C from 07/05 showed growth of MRSA in one tube and no growth in the other. Pt has a reported temperature of 101F on 07/05/16 blood cultures form 07/07 were negative X2 sets (5) Hypernatremia Status: Resolved (6) Diarrhea Status: Resolved Problem Text: Pt's stool is described as progressing from loose and watery to foul-smelling mustard-yellow. Suspect it is due to peg tube feedings but will check for C. difficile since the pt has been on multiple antibiotics. will change peg tube feeds to a low residual Optimental (7) Neck mass Status: Acute Problem Text: neck ultrasound shows a solid mass in the neck with adjacent lymph node. will need FNAC (8) Anemia Status: Acute Problem Text: Pt's hgb today is 10.5. Going over the pt's past history, it appears his baseline hovers around a hbg of 10-11. Will transfuse if necessary otherwise, we will monitor his h/h through CBC in AM labs. (9) DM2 (diabetes mellitus, type 2) Status: Chronic Problem Text: Will stop all PO anti-diabetic medications upon hospitalization and put pt on sliding scale of insulin. (10) Dyslipidemia Status: Chronic Problem Text: Continue atorvastatin (11) BPH (benign prostatic hyperplasia) Status: Chronic Problem Text: Continue home medications for BPH (12) Down's syndrome Status: Chronic (13) Parkinsons disease Status: Chronic Problem Text: Continue current medications (14) Asthma Status: Chronic Problem Text: Continue albuterol PRN and nebulizer 4 times a day (15) DVT prophylaxis Status: Chronic Problem Text: Joann Shetty, Zehra (16) Advance directive infomation pending evaluation Status: Acute Problem Text: Pt is a [facility] patient with developmental disability paperwork in process (17) Pressure injury of skin Status: Acute Problem Text: * pressure injury of coccyx, present on admission * progressed from stage 2 to stage 3 * continue to turn pt every 2 hours Plan / VTE VTE Prophylaxis Ordered?: Yes Plan / Urinary Catheter Reason for insertion/continuin: Critical Pt monitoring Plan IVF: Initiate Diet: Continue Current (Will continue with tube feeding) Activity: Continue Current Subjective Review of Systems CC/HPI The patient is a 61-year-old male admitted with a reason for visit of Mrsa Bacteremia. Events since last encounter no new events. continue with TPN , no fever or chills, no increase in oxygen requirement. Objective Physical Examination General Exam: Positive: Alert, Cooperative, No Acute Distress Eye Exam: Positive: Conjunctiva & lids normal, EOMI, PERRLA, Negative: Ptosis, Sclera icteric ENT Exam: Positive: Atraumatic, Nares Patent, Pharynx Normal, Tongue Midline, Negative: Mucous membr. moist/pink, Pharyngeal Edema Neck Exam: Positive: Other (Firm smooth nodule approx 1cm felt on the left that rises with swallowing. ), Supple, Negative: JVD Chest Exam: Positive: Clear to auscultation, Normal air movement, Wheezing ( Originating from upper airway) Heart Exam: Positive: Murmurs (Systolic), Normal S1, Normal S2, Rate Normal, Regular Rhythm Abdomen Exam: Positive: Mass (Liver edge palpated at RUQ), Normal bowel sounds , Other (Peg tube placement site is mildly erythematous with minimal serous drainage surrounding the tube. No evidence of acute infectious process, this is likely from irritation.), Soft, Tenderness (Tender to palpation on RUQ) Male Exam: Positive: Normal Genital Exam Extremity Exam: Positive: Normal pulses, Negative: Clubbing, Cyanosis, Edema Skin Exam: Positive: Nl turgor and temperature, Other skin issue (Mild reddening of skin over bilateral upper buttocks without any evidence of skin breakdown. ), Negative: Breakdown, Rash Vital Signs/I&O Vital Signs Date Time Temp Pulse Resp B/P Pulse Ox O2 Delivery O2 Flow Rate FiO2 07/18/16 08:30 Nasal Cannula 2.0 07/18/16 06:00 98.0 61 20 110/69 95 07/12/16 04:00 28 I&O- Last 24 Hours up to 6 AM 07/18/16 06:00 Intake Total 770 ml Output Total 0 ml Balance 770 ml Laboratory Data Labs 24H Laboratory Tests 2 07/17/16 11:45: Bedside Glucose (Misc Panel) 144H 07/17/16 16:31: Bedside Glucose (Misc Panel) 123H 07/17/16 23:44: Bedside Glucose (Misc Panel) 271H 07/18/16 05:05: Anion Gap 4L, C-Reactive Protein, Quantitative 1.02H, Blood Urea Nitrogen 15, Creatinine 0.84, Sodium Level 139, Potassium Level 4.0, Chloride Level 100, Carbon Dioxide Level 35H, Calcium Level 8.0L, Glomerular Filtration Rate > 60.0 , Magnesium Level 2.2 07/18/16 05:55: Bedside Glucose (Misc Panel) 283H CBC/BMP Laboratory Tests 07/18/16 05:05 Calcium Level 8.0 L, Red Blood Count 3.03 L, Mean Corpuscular Volume 90.9, Mean Corpuscular Hemoglobin 28.9, Mean Corpuscular Hemoglobin Concent 31.8 L, Red Cell Distribution Width 16.1 H FSBS Laboratory Tests Test 07/17/16 11:45 07/17/16 16:31 07/17/16 23:44 07/18/16 05:55 Range/Units Bedside Glucose (Misc Panel) 144 123 271 283 80-115 MG/DL Microbiology Microbiology 07/17/16 Clostridium difficile (PCR) - Final, Complete 07/08/16 Gastrointestinal Tract Panel (PCR) - Final, Complete 07/09/16 MRSA Screen - Final, Complete Staph.aureus Methicillin Resis NANDINI VILLAVICENCIO MD Jul 18, 2016 11:29
[2016-07-18] MEDS: ACETAMINOPHEN TAB 650MG DOSE (2X325MG) PO PRN (11:59)
[2016-07-18 12:00] VITALS: BP_SYST 125; BP_DIAS 65; BP_DIAS 85
[2016-07-18] MEDS ORDERED: FAT EMULSION IV 20% 500 ML IV SCH (18:00)
[2016-07-18] MEDS ORDERED: AMINO AC/ELECTROLYTE/DEX/CALC 2,000 ML IV SCH (18:00)
[2016-07-18] MEDS: OLANZapine 5 MG TAB PO SCH (20:06)
[2016-07-18 22:00] VITALS: BP 115/58
[2016-07-19] MEDS: PIPERACILLIN/TAZOBACTAM SOD 3.375 GM in D5W MINI-BAG PLUS 50 ML IV SCH ×4 (00:16→18:27)
[2016-07-19] MEDS: HumaLOG INSULIN (NovoLOG) PER UNIT SC SCH ×4 (00:16→18:27)
[2016-07-19] MEDS: ALBUTEROL SULFATE 2.5 MG/0.5 ML INH NEB SOLN INH SCH ×6 (04:17→23:27)
[2016-07-19 04:50] LABS: MEAN CORPUSCULAR HEMOGLOBIN 28.6 pg (27.0-33.0); MEAN CORPUSCULAR HGB CONC 31.5 g/dl (32.0-36.5); MEAN CORPUSCULAR VOLUME 90.9 fl (80.0-96.0); RED CELL DISTRIBUTION WIDTH 15.9 % (11.5-14.5); WHITE BLOOD COUNT 3.5 K/mm3 (4.0-10.0)
[2016-07-19 05:09] LABS: ANION GAP 5 MEQ/L (8-16); BLOOD UREA NITROGEN 14 MG/DL (7-18); CALCIUM LEVEL 8.1 MG/DL (8.8-10.2); CARBON DIOXIDE LEVEL 35 MEQ/L (21-32); CHLORIDE LEVEL 101 MEQ/L (98-107); GLOMERULAR FILTRATION RATE > 60.0 (>49); GLUCOSE, FASTING 124 MG/DL (80-110); MAGNESIUM LEVEL 2.4 MG/DL (1.8-2.4); POTASSIUM SERUM 3.9 MEQ/L (3.5-5.1); SODIUM LEVEL 141 MEQ/L (136-145)
--- NOTE | 2016-07-19 05:37 | PHACANCOPD ---
PHARMACY VANCOMYCIN DOSING Pt Demographics Demographics Patient Age:61 , Weight:60.000 , Gender: male Adjusted Body Weight Date: 07/08/16, Adjusted Body Weight: [54.43] Kg ACTUAL WEIGHT Vancomycin Vancomycin indication: MRSA BACTEREMIA Vancomycin Target Ranges: 15-20 mcg/ml Vancomycin Load Y/N: Yes Load Dose Date Time Vancomycin Load Dose: 1250MG Date: 07/07/16 Time: 1845 Vancomycin Dose Date: 07/19/16. Current Vancomycin Dose: [750MG IV Q12H] Date: 07/15/16. Current Vancomycin Dose: [1GM IV Q12H@06] Date: 07/08/16. Current Vancomycin Dose: [1GM Q12H] Intermittent Dosing?: No Labs Micro Microbiology 07/17/16 Clostridium difficile (PCR) - Final, Complete 07/09/16 MRSA Screen - Final, Complete Staph.aureus Methicillin Resis Creatinine Clearance Date:07/08/16. Creatinine Clearance: [81.7]CALCULATED. Pending Labs Vancomycin trough due 07/08@2300: reported =24.2 Assessment and Plan Maintaining Current Dose?: No Reason for dose change: Trough too high Pharmacist Note Pharmacist Note Date: 07/19/16. Pharmacist note:Vancomycin trough drawn this AM @ 0436 reported as 24.2 d/t accumulation: Will adjust Vancomycin dose to 750mg and maintain the Q12H schedule to begin at 12Noon today( held 6 hours) 07/15: Trough came back at 19.1 today. Due to him slowly accumulating Vancomycin after he received his noon dose he was rescheduled on Vancomycin 1gm IV q12h starting at 6am tomorrow morning. This is to allow him to clear some of the drug then we will resume his q12h dosing. We will continue to monitor and make adjustments as necessary. Date: 07/08/16. Pharmacist note:Vancomycin trough drawn this pm@2300 reported as 14.0:will continue w/current regimen and continue to monitor SCR and levels Date: 07/08/16. Pharmacist note:MRSA BACTEREMIA Patient scr=0.74 calculated crcl =81.7-given vancomycin 1250mg load in ed 07/07@1845,will continue w/1 gram IV Q12H and draw trough prior to the fourth dose( 07/08 @2300)-will continue to follow scr and monitor levels. KONSTANTIN BENÍTEZ PHARMACY Jul 19, 2016 05:37
[2016-07-19 06:00] VITALS: BP 120/60
[2016-07-19] MEDS: SINEMET 25-100 MG TAB PO SCH ×3 (06:00→18:26)
[2016-07-19] MEDS: SODIUM CHLORIDE 0.9% INJ 10 ML SYR IV SCH ×2 (06:00→18:27)
[2016-07-19] MEDS: BUDESONIDE 0.5 MG/2 ML INHALATION SUSPENSION INH SCH ×2 (07:36→19:36)
[2016-07-19] MEDS: ENOXAPARIN 40 MG/0.4 ML SYRINGE (J1650) SC SCH (08:40)
--- NOTE | 2016-07-19 11:47 | IPNPDOC ---
Subjective General Date Seen The patient was seen on 07/19/16. Chief Complaint/HPI The patient is a 61-year-old male admitted with a reason for visit of Mrsa Bacteremia. Subjective Events since last encounter no complaints. Objective Physical Examination General Exam: Positive: Alert, Cooperative, No Acute Distress Eye Exam: Positive: Conjunctiva & lids normal, EOMI, PERRLA, Negative: Ptosis, Sclera icteric ENT Exam: Positive: Atraumatic, Nares Patent, Pharynx Normal, Tongue Midline, Negative: Mucous membr. moist/pink, Pharyngeal Edema Neck Exam: Positive: Other (Firm smooth nodule approx 1cm felt on the left that rises with swallowing. ), Supple, Negative: JVD Chest Exam: Positive: Clear to auscultation, Normal air movement, Wheezing ( Originating from upper airway) Heart Exam: Positive: Murmurs (Systolic), Normal S1, Normal S2, Rate Normal, Regular Rhythm Abdomen Exam: Positive: Mass (Liver edge palpated at RUQ), Normal bowel sounds , Other (Peg tube placement site is mildly erythematous with minimal serous drainage surrounding the tube. No evidence of acute infectious process, this is likely from irritation.), Soft, Tenderness (Tender to palpation on RUQ) Male Exam: Positive: Normal Genital Exam Extremity Exam: Positive: Normal pulses, Negative: Clubbing, Cyanosis, Edema Skin Exam: Positive: Nl turgor and temperature, Other skin issue (Mild reddening of skin over bilateral upper buttocks without any evidence of skin breakdown. ), Negative: Breakdown, Rash Assessment /Plan Problems Problems: (1) Feeding tube dysfunction Status: Acute Problem Text: * Has gastro-colonic fistula. TO be managed nonsurgically * current feeding tube is not being used * will continue TPN through picc line * Dr corral will place a new feeding this weeK * continue meds only through NG tube (2) Aspiration pneumonia Status: Resolved Problem Text: on Zosyn and Vancomycin now day 10. pt was seen by dr corral on 07/13, his peg tube when it was placed had pierced the colon pt was returned to floor and picc line was placed for TPN pt will have a new Jtube placed this week. (3) Acute respiratory failure with hypoxemia Status: Resolved Problem Text: due to aspiration pneumonia will continue with zosyn to vancomycin Day 6 (4) MRSA bacteremia Status: Resolved Problem Text: Pt's B/C from 07/05 showed growth of MRSA in one tube and no growth in the other. Pt has a reported temperature of 101F on 07/05/16 blood cultures form 07/07 were negative X2 sets (5) Diarrhea Status: Resolved Problem Text: due to tube feeds, now on tpn so resolved (6) Neck mass Status: Acute Problem Text: neck ultrasound shows a solid mass in the neck with adjacent lymph node. will need FNAC (7) Anemia Status: Acute Problem Text: Pt's hgb today is 10.5. Going over the pt's past history, it appears his baseline hovers around a hbg of 10-11. Will transfuse if necessary otherwise, we will monitor his h/h through CBC in AM labs. (8) DM2 (diabetes mellitus, type 2) Status: Chronic Problem Text: Will stop all PO anti-diabetic medications upon hospitalization and put pt on sliding scale of insulin. (9) Dyslipidemia Status: Chronic Problem Text: Continue atorvastatin (10) BPH (benign prostatic hyperplasia) Status: Chronic Problem Text: Continue home medications for BPH (11) Down's syndrome Status: Chronic (12) Parkinsons disease Status: Chronic Problem Text: Continue current medications (13) Asthma Status: Chronic Problem Text: Continue albuterol PRN and nebulizer 4 times a day (14) DVT prophylaxis Status: Chronic Problem Text: Joann Shetty SEQs (15) Advance directive infomation pending evaluation Status: Acute Problem Text: Pt is a [facility] patient with developmental disability paperwork complete now dnr and dni (16) Pressure injury of skin Status: Acute Problem Text: * pressure injury of coccyx, present on admission * progressed from stage 2 to stage 3 * continue to turn pt every 2 hours Plan/VTE VTE Prophylaxis Ordered?: Yes Plan/Urinary Catheter Reason for insertion/continuin: Critical Pt monitoring Plan IVF: Initiate Diet: Continue Current (Will continue with tube feeding) Activity: Continue Current VS, I&O, 24H, Fishbone Vital Signs/I&O Vital Signs Date Time Temp Pulse Resp B/P Pulse Ox O2 Delivery O2 Flow Rate FiO2 07/19/16 09:00 Nasal Cannula 2.0 07/19/16 06:00 96.1 74 20 120/60 94 I&O- Last 24 Hours up to 6 AM 07/19/16 06:00 Intake Total 2630 ml Balance 2630 ml Laboratory Data 24H LABS Laboratory Tests 2 07/18/16 16:48: Bedside Glucose (Misc Panel) 144H 07/18/16 23:43: Bedside Glucose (Misc Panel) 307H 07/19/16 04:36: Anion Gap 5L, Blood Urea Nitrogen 14, Creatinine 0.80, Sodium Level 141, Potassium Level 3.9, Chloride Level 101, Carbon Dioxide Level 35H, Calcium Level 8.1L, Glomerular Filtration Rate > 60.0, Magnesium Level 2.4, Vancomycin Level Trough 24.2H 07/19/16 11:28: Bedside Glucose (Misc Panel) 219H CBC/BMP Laboratory Tests 07/19/16 04:36 Calcium Level 8.1 L, Red Blood Count 3.20 L, Mean Corpuscular Volume 90.9, Mean Corpuscular Hemoglobin 28.6, Mean Corpuscular Hemoglobin Concent 31.5 L, Red Cell Distribution Width 15.9 H Microbiology Microbiology 07/17/16 Clostridium difficile (PCR) - Final, Complete 07/09/16 MRSA Screen - Final, Complete Staph.aureus Methicillin Resis NANDINI VILLAVICENCIO MD Jul 19, 2016 11:47
[2016-07-19] MEDS: VANCOMYCIN HCL 750 MG, VIAL MATE ADAPTER 1 EACH in D5W 250 ML IV SCH (12:05)
[2016-07-19 14:00] VITALS: BP 128/63
[2016-07-19] MEDS: SODIUM CHLORIDE 0.9% INJ 10 ML SYR IV PRN (15:25)
[2016-07-19] MEDS ORDERED: FAT EMULSION IV 20% 500 ML IV SCH (18:00)
[2016-07-19] MEDS ORDERED: MULTIVITAMIN -ADULT INJECTION 10 ML, CR/CU/SE/MN/ZN INJ 1 ML in AMINO AC/ELECTROLYTE/DE... IV SCH (18:00)
[2016-07-19] MEDS: ACETAMINOPHEN TAB 650MG DOSE (2X325MG) PO PRN (18:26)
[2016-07-19] MEDS: OLANZapine 5 MG TAB PO SCH (20:38)
[2016-07-19 22:00] VITALS: BP 110/56
[2016-07-20] MEDS: HumaLOG INSULIN (NovoLOG) PER UNIT SC SCH ×5 (00:09→23:43)
[2016-07-20] MEDS: VANCOMYCIN HCL 750 MG, VIAL MATE ADAPTER 1 EACH in D5W 250 ML IV SCH ×3 (00:10→23:43)
[2016-07-20] MEDS: PIPERACILLIN/TAZOBACTAM SOD 3.375 GM in D5W MINI-BAG PLUS 50 ML IV SCH ×4 (01:39→17:52)
[2016-07-20] MEDS: ALBUTEROL SULFATE 2.5 MG/0.5 ML INH NEB SOLN INH SCH ×6 (04:34→23:49)
[2016-07-20] MEDS: SODIUM CHLORIDE 0.9% INJ 10 ML SYR IV SCH ×2 (05:04→17:51)
[2016-07-20 05:20] LABS: MEAN CORPUSCULAR HEMOGLOBIN 28.8 pg (27.0-33.0); MEAN CORPUSCULAR HGB CONC 31.4 g/dl (32.0-36.5); MEAN CORPUSCULAR VOLUME 91.6 fl (80.0-96.0); RED CELL DISTRIBUTION WIDTH 16.3 % (11.5-14.5); WHITE BLOOD COUNT 3.3 K/mm3 (4.0-10.0)
[2016-07-20 05:36] LABS: ANION GAP 6 MEQ/L (8-16); BLOOD UREA NITROGEN 15 MG/DL (7-18); CALCIUM LEVEL 8.3 MG/DL (8.8-10.2); CARBON DIOXIDE LEVEL 33 MEQ/L (21-32); CHLORIDE LEVEL 102 MEQ/L (98-107); CREATININE FOR GFR 0.79 MG/DL (0.70-1.30); GLOMERULAR FILTRATION RATE > 60.0 (>49); GLUCOSE, FASTING 168 MG/DL (80-110); MAGNESIUM LEVEL 2.3 MG/DL (1.8-2.4); POTASSIUM SERUM 3.8 MEQ/L (3.5-5.1); SODIUM LEVEL 141 MEQ/L (136-145)
[2016-07-20 06:00] VITALS: BP 113/67
[2016-07-20] MEDS: SINEMET 25-100 MG TAB PO SCH ×3 (06:04→17:52)
[2016-07-20] MEDS: SODIUM CHLORIDE 0.9% INJ 10 ML SYR IV PRN (07:31)
[2016-07-20 08:20] VITALS: BP 91/55
[2016-07-20] MEDS: BUDESONIDE 0.5 MG/2 ML INHALATION SUSPENSION INH SCH ×2 (08:43→19:49)
[2016-07-20] MEDS: ENOXAPARIN 40 MG/0.4 ML SYRINGE (J1650) SC SCH (09:30)
--- NOTE | 2016-07-20 13:05 | IPNPDOC ---
Subjective General Date Seen The patient was seen on 07/20/16. Subjective Chief Complaint/HPI The patient is a 61-year-old male admitted with a reason for visit of Mrsa Bacteremia. Events since last encounter no new issues overnight , unfortunately the jejunostomy tube that was supposed to be used in unavailable at present and it may be 2 weeks before it becomes available as per the company so we are trying to get a different type of tube. no fever or chills, no chest pain or cough , no vomiting or diarrhea. Objective Physical Examination General Exam: Positive: Alert, Cooperative, No Acute Distress Eye Exam: Positive: Conjunctiva & lids normal, EOMI, PERRLA, Negative: Ptosis, Sclera icteric ENT Exam: Positive: Atraumatic, Nares Patent, Pharynx Normal, Tongue Midline, Negative: Mucous membr. moist/pink, Pharyngeal Edema Neck Exam: Positive: Other (Firm smooth nodule approx 1cm felt on the left that rises with swallowing. ), Supple, Negative: JVD Chest Exam: Positive: Clear to auscultation, Normal air movement, Wheezing ( Originating from upper airway) Heart Exam: Positive: Murmurs (Systolic), Normal S1, Normal S2, Rate Normal, Regular Rhythm Abdomen Exam: Positive: Mass (Liver edge palpated at RUQ), Normal bowel sounds , Other (Peg tube placement site is mildly erythematous with minimal serous drainage surrounding the tube. No evidence of acute infectious process, this is likely from irritation.), Soft, Tenderness (Tender to palpation on RUQ) Male Exam: Positive: Normal Genital Exam Extremity Exam: Positive: Normal pulses, Negative: Clubbing, Cyanosis, Edema Skin Exam: Positive: Nl turgor and temperature, Other skin issue (Mild reddening of skin over bilateral upper buttocks without any evidence of skin breakdown. ), Negative: Breakdown, Rash Assessment /Plan Problems Problems: (1) Feeding tube dysfunction Status: Acute Problem Text: * Has gastro-colonic fistula. TO be managed nonsurgically . 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 * current feeding tube is not being used * will continue TPN through picc line * Dr corral will place a new feeding when available. * continue meds only through NG tube (2) Aspiration pneumonia Status: Resolved Problem Text: on Zosyn and Vancomycin now day 10. pt was seen by dr corral on 07/13, his peg tube when it was placed had pierced the colon pt was returned to floor and picc line was placed for TPN pt will have a new Jtube placed this week. (3) Acute respiratory failure with hypoxemia Status: Resolved Problem Text: due to aspiration pneumonia will continue with zosyn to vancomycin Day 6 (4) MRSA bacteremia Status: Resolved Problem Text: Pt's B/C from 07/05 showed growth of MRSA in one tube and no growth in the other. Pt has a reported temperature of 101F on 07/05/16 blood cultures form 07/07 were negative X2 sets (5) Diarrhea Status: Resolved Problem Text: due to tube feeds, now on tpn so resolved (6) Neck mass Status: Acute Problem Text: neck ultrasound shows a solid mass in the neck with adjacent lymph node. will need FNAC (7) Anemia Status: Acute Problem Text: Pt's hgb today is 10.5. Going over the pt's past history, it appears his baseline hovers around a hbg of 10-11. Will transfuse if necessary otherwise, we will monitor his h/h through CBC in AM labs. (8) DM2 (diabetes mellitus, type 2) Status: Chronic Problem Text: Will stop all PO anti-diabetic medications upon hospitalization and put pt on sliding scale of insulin. (9) Dyslipidemia Status: Chronic Problem Text: Continue atorvastatin (10) BPH (benign prostatic hyperplasia) Status: Chronic Problem Text: Continue home medications for BPH (11) Down's syndrome Status: Chronic (12) Parkinsons disease Status: Chronic Problem Text: Continue current medications (13) Asthma Status: Chronic Problem Text: Continue albuterol PRN and nebulizer 4 times a day (14) DVT prophylaxis Status: Chronic Problem Text: Lovenox, TEDs, SEQs (15) Advance directive infomation pending evaluation Status: Acute Problem Text: Pt is a [facility] patient with developmental disability paperwork complete now dnr and dni (16) Pressure injury of skin Status: Acute Problem Text: * pressure injury of coccyx, present on admission * progressed from stage 2 to stage 3 * continue to turn pt every 2 hours Plan/VTE VTE Prophylaxis Ordered?: Yes Plan/Urinary Catheter Reason for insertion/continuin: Critical Pt monitoring Plan IVF: Initiate Diet: Continue Current (Will continue with tube feeding) Activity: Continue Current VS, I&O, 24H, Fishbone Vital Signs/I&O Vital Signs Date Time Temp Pulse Resp B/P Pulse Ox O2 Delivery O2 Flow Rate FiO2 07/20/16 09:00 Nasal Cannula 2.0 07/20/16 08:20 96.3 67 12 91/55 99 I&O- Last 24 Hours up to 6 AM 07/20/16 06:00 Intake Total 1755 ml Output Total 0 ml Balance 1755 ml Laboratory Data 24H LABS Laboratory Tests 2 07/19/16 17:56: Bedside Glucose (Misc Panel) 215H 07/19/16 20:59: Bedside Glucose (Misc Panel) 108 07/19/16 23:32: Bedside Glucose (Misc Panel) 171H 07/20/16 05:11: Anion Gap 6L, Blood Urea Nitrogen 15, Creatinine 0.79, Sodium Level 141, Potassium Level 3.8, Chloride Level 102, Carbon Dioxide Level 33H, Calcium Level 8.3L, Glomerular Filtration Rate > 60.0, Magnesium Level 2.3 07/20/16 12:20: Bedside Glucose (Misc Panel) 201H CBC/BMP Laboratory Tests 07/20/16 05:11 Calcium Level 8.3 L, Red Blood Count 3.16 L, Mean Corpuscular Volume 91.6, Mean Corpuscular Hemoglobin 28.8, Mean Corpuscular Hemoglobin Concent 31.4 L, Red Cell Distribution Width 16.3 H Microbiology Microbiology 07/17/16 Clostridium difficile (PCR) - Final, Complete NANDINI VILLAVICENCIO MD Jul 20, 2016 13:05
[2016-07-20] MEDS ORDERED: AMINO AC/ELECTROLYTE/DEX/CALC 2,000 ML IV SCH (18:00)
[2016-07-20] MEDS ORDERED: FAT EMULSION IV 20% 500 ML IV SCH (18:00)
[2016-07-20] MEDS: OLANZapine 5 MG TAB PO SCH (21:37)
[2016-07-20 22:00] VITALS: BP 107/57
[2016-07-21] MEDS: SODIUM CHLORIDE 0.9% INJ 10 ML SYR IV PRN (02:54)
[2016-07-21] MEDS: ALBUTEROL SULFATE 2.5 MG/0.5 ML INH NEB SOLN INH SCH ×6 (03:41→23:34)
[2016-07-21] MEDS: SODIUM CHLORIDE 0.9% INJ 10 ML SYR IV SCH ×2 (05:18→18:16)
[2016-07-21 05:38] LABS: MEAN CORPUSCULAR HEMOGLOBIN 29.3 pg (27.0-33.0); MEAN CORPUSCULAR HGB CONC 31.6 g/dl (32.0-36.5); MEAN CORPUSCULAR VOLUME 92.8 fl (80.0-96.0); RED CELL DISTRIBUTION WIDTH 16.2 % (11.5-14.5)
[2016-07-21 06:00] VITALS: BP 113/70
[2016-07-21 06:08] LABS: ANION GAP 5 MEQ/L (8-16); BLOOD UREA NITROGEN 19 MG/DL (7-18); CARBON DIOXIDE LEVEL 35 MEQ/L (21-32); CHLORIDE LEVEL 101 MEQ/L (98-107); CREATININE FOR GFR 0.88 MG/DL (0.70-1.30); GLOMERULAR FILTRATION RATE > 60.0 (>49); GLUCOSE, FASTING 176 MG/DL (80-110); MAGNESIUM LEVEL 2.3 MG/DL (1.8-2.4); POTASSIUM SERUM 3.8 MEQ/L (3.5-5.1); SODIUM LEVEL 141 MEQ/L (136-145)
[2016-07-21] MEDS: SINEMET 25-100 MG TAB PO SCH ×3 (06:10→18:14)
[2016-07-21] MEDS: PIPERACILLIN/TAZOBACTAM SOD 3.375 GM in D5W MINI-BAG PLUS 50 ML IV SCH ×3 (06:10)
[2016-07-21] MEDS: HumaLOG INSULIN (NovoLOG) PER UNIT SC SCH ×3 (06:10→18:15)
[2016-07-21] MEDS: BUDESONIDE 0.5 MG/2 ML INHALATION SUSPENSION INH SCH ×2 (07:31→20:12)
--- NOTE | 2016-07-21 10:30 | IPNPDOC ---
Subjective General Date Seen The patient was seen on 07/21/16. Subjective Chief Complaint/HPI The patient is a 61-year-old male admitted with a reason for visit of Mrsa Bacteremia. Events since last encounter very sleepy thia am , no other complaints, no fever or chills, no nausea or vomiting , no diarrhea. Objective Physical Examination General Exam: Positive: No Acute Distress, Other (drowsy) Eye Exam: Positive: Conjunctiva & lids normal, EOMI, PERRLA, Negative: Ptosis, Sclera icteric ENT Exam: Positive: Atraumatic, Nares Patent, Pharynx Normal, Tongue Midline, Negative: Mucous membr. moist/pink, Pharyngeal Edema Neck Exam: Positive: Other (Firm smooth nodule approx 1cm felt on the left that rises with swallowing. ), Supple, Negative: JVD Chest Exam: Positive: Clear to auscultation, Normal air movement, Wheezing ( Originating from upper airway) Heart Exam: Positive: Murmurs (Systolic), Normal S1, Normal S2, Rate Normal, Regular Rhythm Abdomen Exam: Positive: Mass (Liver edge palpated at RUQ), Normal bowel sounds , Other (Peg tube placement site is mildly erythematous with minimal serous drainage surrounding the tube. No evidence of acute infectious process, this is likely from irritation.), Soft, Tenderness (Tender to palpation on RUQ) Male Exam: Positive: Normal Genital Exam Extremity Exam: Positive: Normal pulses, Negative: Clubbing, Cyanosis, Edema Skin Exam: Positive: Nl turgor and temperature, Other skin issue (Mild reddening of skin over bilateral upper buttocks without any evidence of skin breakdown. ), Negative: Breakdown, Rash Assessment /Plan Problems Problems: (1) Feeding tube dysfunction Status: Acute Problem Text: * Has gastro-colonic fistula. TO be managed nonsurgically . 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 * current feeding tube is not being used * will continue TPN through picc line * Dr corral will place a new feeding when available. * continue meds only through NG tube (2) Aspiration pneumonia Status: Resolved Problem Text: on Zosyn and Vancomycin now day 10. pt was seen by dr corral on 07/13, his peg tube when it was placed had pierced the colon pt was returned to floor and picc line was placed for TPN pt will have a new Jtube placed this week. (3) Acute respiratory failure with hypoxemia Status: Resolved Problem Text: due to aspiration pneumonia will continue with zosyn to vancomycin Day 6 (4) MRSA bacteremia Status: Resolved Problem Text: Pt's B/C from 07/05 showed growth of MRSA in one tube and no growth in the other. Pt has a reported temperature of 101F on 07/05/16 blood cultures form 07/07 were negative X2 sets (5) Diarrhea Status: Resolved Problem Text: due to tube feeds, now on tpn so resolved (6) Neck mass Status: Acute Problem Text: neck ultrasound shows a solid mass in the neck with adjacent lymph node. will need FNAC (7) Anemia Status: Acute Problem Text: Pt's hgb today is 10.5. Going over the pt's past history, it appears his baseline hovers around a hbg of 10-11. Will transfuse if necessary otherwise, we will monitor his h/h through CBC in AM labs. (8) DM2 (diabetes mellitus, type 2) Status: Chronic Problem Text: Will stop all PO anti-diabetic medications upon hospitalization and put pt on sliding scale of insulin. (9) Dyslipidemia Status: Chronic Problem Text: Continue atorvastatin (10) BPH (benign prostatic hyperplasia) Status: Chronic Problem Text: Continue home medications for BPH (11) Down's syndrome Status: Chronic (12) Parkinsons disease Status: Chronic Problem Text: Continue current medications (13) Asthma Status: Chronic Problem Text: Continue albuterol PRN and nebulizer 4 times a day (14) DVT prophylaxis Status: Chronic Problem Text: Lovenox, TEDs, SEQs (15) Advance directive infomation pending evaluation Status: Resolved Problem Text: Pt is a [facility] patient with developmental disability paperwork complete now dnr and dni (16) Pressure injury of skin Status: Acute Problem Text: * pressure injury of coccyx, present on admission * progressed from stage 2 to stage 3 * continue to turn pt every 2 hours Plan/VTE VTE Prophylaxis Ordered?: Yes Plan/Urinary Catheter Reason for insertion/continuin: Critical Pt monitoring Plan IVF: Initiate Diet: Continue Current (Will continue with tube feeding) Activity: Continue Current VS, I&O, 24H, Fishbone Vital Signs/I&O Vital Signs Date Time Temp Pulse Resp B/P Pulse Ox O2 Delivery O2 Flow Rate FiO2 07/21/16 06:00 96.8 65 17 113/70 92 Room Air 07/20/16 23:49 2.0 I&O- Last 24 Hours up to 6 AM 07/21/16 06:00 Intake Total 1335 ml Output Total 0 ml Balance 1335 ml Laboratory Data 24H LABS Laboratory Tests 2 07/20/16 12:20: Bedside Glucose (Misc Panel) 201H 07/20/16 17:57: Bedside Glucose (Misc Panel) 176H 07/20/16 23:33: Bedside Glucose (Misc Panel) 192H 07/21/16 05:23: Bedside Glucose (Misc Panel) 130H 07/21/16 05:24: Anion Gap 5L, Blood Urea Nitrogen 19H, Creatinine 0.88, Sodium Level 141, Potassium Level 3.8, Chloride Level 101, Carbon Dioxide Level 35H, Calcium Level 8.0L, Glomerular Filtration Rate > 60.0, Magnesium Level 2.3 CBC/BMP Laboratory Tests 07/21/16 05:24 Calcium Level 8.0 L, Red Blood Count 3.13 L, Mean Corpuscular Volume 92.8, Mean Corpuscular Hemoglobin 29.3, Mean Corpuscular Hemoglobin Concent 31.6 L, Red Cell Distribution Width 16.2 H Microbiology Microbiology 07/17/16 Clostridium difficile (PCR) - Final, Complete NANDINI VILLAVICENCIO MD Jul 21, 2016 10:30
[2016-07-21 11:13] LABS: ABG HCO3 27.8 MEQ/L (22.0-26.0); ABG PARTIAL PRESSURE CO2 38.6 mmHg (35.0-45.0); ABG PARTIAL PRESSURE O2 117.1 mmHg (75.0-100.0); ABG STANDARD HCO3 28.1 MEQ/L (22.0-26.0); ABG pH (ARTERIAL) 7.475 UNITS (7.350-7.450)
[2016-07-21] MEDS ORDERED: ISOVUE-300 61% 50ML VIAL (Q9967) As Ordered ONE ×2 (13:28→14:11)
[2016-07-21 15:00] VITALS: BP 116/57
--- NOTE | 2016-07-21 15:11 | REPKIM ---
CLINICAL HISTORY: Patient with a history of Down syndrome and other medical comorbidities has a PEG tube. Patient was found to have gastro-colonic fistula. Patient is referred for a percutaneous transgastric jejunostomy feeding tube placement because of inability to tolerate oral intake needing enteral support, as well as needing gastric decompression. PROCEDURE PERFORMED: Percutaneous GastoJejunosotmy Tube Placement INTERVENTIONALIST: Mervin Davis MD CONSENT: The risks, benefits and alternatives to the procedure were explained to the patients family, Mr Urban Osborne, who is the legal guardian and informed phone consent was obtained and witnessed. MEDICATIONS: Local Lidocaine CONTRAST: 100 mL Isovue 300 EBL: 5 mL FLUORO TIME: 9.1 minutes DEVICE USED: 16F Kim[place] Gastrojejunostomy tube set Lot#[id number] PROCEDURE/FINDINGS: The patient was brought to the interventional radiology suite and placed in the supine position with head of bed elevated. Time out procedure was performed. The abdomen was prepped and draped in a usual sterile fashion. Air was introduced into the stomach through the existing nasogastric tube. A single Gastropexy was performed by the introduction of T-fastener into the gastric lumen through percutaneous puncture with an 18-gauge needle of the air- insufflated stomach, after infiltration of the skin and deep tissues with local anesthetic. Using this access, a 5-Malian selective catheter was introduced into the stomach. Then with the aid of a hydrophilic guidewire, the catheter was advanced across the pyloric canal, through the duodenal sweep, and past the ligament of Treitz into the proximal jejunum. The hydrophilic wire was exchanged for a stiff guidewire. After serial dilation of the tract, a peel away sheath was introduced into the stomach. Then 70-cm length, 89-XxeltmLqfx-Zdzn gastrojejunostomy feeding tube was advanced over the guidewire. The peel away sheath was removed. The retention loop was formed in the gastric lumen. Contrast was injected into both the gastric and jejunal ports to confirm satisfactory course and position. This showed no obvious gatro-colonic fistula. Post procedure radiograph shows the tip of the tube in the proximal jejunum. The feeding tube was secured with 0 suture. The stomach was decompressed. The gastric port was then connected to a gravity bag. The existing nasogastric tube was removed. The patient tolerated the procedure with no immediate complications. This procedure was performed using fluoroscopy. Dr. Davis was present. IMPRESSION: Successful 16-Malian percutaneous gastrojejunostomy feeding tube placement as discussed above. PLAN 1. Flush the jejunal feeding port with 40mL water every 6 hours during continuous feeding, before and after every intermittent feeding, or at least every 8 hours if the tube is not being used. When flushing a tube, use water and a 30cc-60cc plunger syringe. 2. May use jejunal port for feeding starting tomorrow AM if bowel sounds are present and no abdominal pain. Patient has not had small bowel gut feeding for some time. Advance enteral feeding via the jejunal feeding port very slowly as tolerated. 3. Keep the gastric port to gravity drainage except meds. May use gastric port of the GJ tube for medications as needed. The gastric port should be clamped for 2 hours after meds. Please flush the gastric port with 30-40 mL water before and after each meds. cc: MD Tirso Candelaria DO MTDD
[2016-07-21 15:30] VITALS: BP 114/55
[2016-07-21 16:00] VITALS: BP 133/58
[2016-07-21 18:00] VITALS: BP 127/60
[2016-07-21] MEDS ORDERED: AMINO AC/ELECTROLYTE/DEX/CALC 2,000 ML IV SCH (18:00)
[2016-07-21] MEDS ORDERED: FAT EMULSION IV 20% 500 ML IV SCH (18:00)
[2016-07-21] MEDS: ENOXAPARIN 40 MG/0.4 ML SYRINGE (J1650) SC SCH (18:15)
[2016-07-21] MEDS: OLANZapine 5 MG TAB PO SCH (20:10)
[2016-07-21 22:00] VITALS: BP 124/56
[2016-07-21] MEDS: ACETAMINOPHEN TAB 650MG DOSE (2X325MG) PO PRN (22:17)
[2016-07-22] MEDS: HumaLOG INSULIN (NovoLOG) PER UNIT SC SCH ×4 (00:14→17:03)
[2016-07-22] MEDS: NYSTATIN 100,000 UNITS/GM TOPICAL PWD 15 GM TOP SCH ×3 (00:14→20:03)
[2016-07-22 02:00] VITALS: BP 126/58
[2016-07-22] MEDS: ALBUTEROL SULFATE 2.5 MG/0.5 ML INH NEB SOLN INH SCH ×6 (03:16→23:25)
[2016-07-22] MEDS: SODIUM CHLORIDE 0.9% INJ 10 ML SYR IV SCH ×2 (05:13→18:12)
[2016-07-22 05:36] LABS: MEAN CORPUSCULAR HEMOGLOBIN 28.7 pg (27.0-33.0); MEAN CORPUSCULAR VOLUME 92.6 fl (80.0-96.0); RED CELL DISTRIBUTION WIDTH 16.2 % (11.5-14.5); WHITE BLOOD COUNT 3.7 K/mm3 (4.0-10.0)
[2016-07-22 06:00] VITALS: BP 122/57
[2016-07-22 06:01] LABS: ANION GAP 6 MEQ/L (8-16); BLOOD UREA NITROGEN 20 MG/DL (7-18); CALCIUM LEVEL 8.4 MG/DL (8.8-10.2); CARBON DIOXIDE LEVEL 32 MEQ/L (21-32); CHLORIDE LEVEL 104 MEQ/L (98-107); CREATININE FOR GFR 0.78 MG/DL (0.70-1.30); GLOMERULAR FILTRATION RATE > 60.0 (>49); GLUCOSE, FASTING 142 MG/DL (80-110); MAGNESIUM LEVEL 2.4 MG/DL (1.8-2.4); POTASSIUM SERUM 3.6 MEQ/L (3.5-5.1); SODIUM LEVEL 142 MEQ/L (136-145)
[2016-07-22] MEDS: SINEMET 25-100 MG TAB PO SCH ×3 (06:08→18:13)
[2016-07-22] MEDS: BUDESONIDE 0.5 MG/2 ML INHALATION SUSPENSION INH SCH ×2 (07:40→19:45)
[2016-07-22 08:00] VITALS: BP 112/48
--- NOTE | 2016-07-22 12:54 | IPNPDOC ---
Subjective General Date Seen The patient was seen on 07/22/16. Subjective Chief Complaint/HPI The patient is a 61-year-old male admitted with a reason for visit of Mrsa Bacteremia. Events since last encounter had G-J tube placement on 07/21/16 , will start using it today. no fever or chills, no chest pain or sob, has some abdominal pain at the site of the procedure. Objective Physical Examination General Exam: Positive: No Acute Distress, Other (drowsy) Eye Exam: Positive: Conjunctiva & lids normal, EOMI, PERRLA, Negative: Ptosis, Sclera icteric ENT Exam: Positive: Atraumatic, Nares Patent, Pharynx Normal, Tongue Midline, Negative: Mucous membr. moist/pink, Pharyngeal Edema Neck Exam: Positive: Other (Firm smooth nodule approx 1cm felt on the left that rises with swallowing. ), Supple, Negative: JVD Chest Exam: Positive: Clear to auscultation, Normal air movement, Wheezing ( Originating from upper airway) Heart Exam: Positive: Murmurs (Systolic), Normal S1, Normal S2, Rate Normal, Regular Rhythm Abdomen Exam: Positive: Mass (Liver edge palpated at RUQ), Normal bowel sounds , Other (Peg tube placement site is mildly erythematous with minimal serous drainage surrounding the tube. No evidence of acute infectious process, this is likely from irritation.), Soft, Tenderness (Tender to palpation on RUQ) Male Exam: Positive: Normal Genital Exam Extremity Exam: Positive: Normal pulses, Negative: Clubbing, Cyanosis, Edema Skin Exam: Positive: Nl turgor and temperature, Other skin issue (Mild reddening of skin over bilateral upper buttocks without any evidence of skin breakdown. ), Negative: Breakdown, Rash Assessment /Plan Problems Problems: (1) Feeding tube dysfunction Status: Acute Problem Text: * prior gastrostomy tube in colon , there is no communication with the stomach there is no leakage from the stomach. TO be managed nonsurgically . 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 * currently had G-J tube placed on 07/21/16, jejunostomy port to be used for tube feeds and the gastrostomy port can be used for meds and then to be kept to gravity. * will dc tpn (2) Aspiration pneumonia Status: Resolved Problem Text: on Zosyn and Vancomycin now day 10. pt was seen by dr corral on 07/13, his peg tube when it was placed had pierced the colon pt was returned to floor and picc line was placed for TPN pt will have a new Jtube placed this week. (3) Acute respiratory failure with hypoxemia Status: Resolved Problem Text: due to aspiration pneumonia will continue with zosyn to vancomycin Day 6 (4) MRSA bacteremia Status: Resolved Problem Text: Pt's B/C from 07/05 showed growth of MRSA in one tube and no growth in the other. Pt has a reported temperature of 101F on 07/05/16 blood cultures form 07/07 were negative X2 sets (5) Diarrhea Status: Resolved Problem Text: due to tube feeds, now on tpn so resolved (6) Neck mass Status: Acute Problem Text: neck ultrasound shows a solid mass in the neck with adjacent lymph node. will need FNAC (7) Anemia Status: Acute Problem Text: Pt's hgb today is 10.5. Going over the pt's past history, it appears his baseline hovers around a hbg of 10-11. Will transfuse if necessary otherwise, we will monitor his h/h through CBC in AM labs. (8) DM2 (diabetes mellitus, type 2) Status: Chronic Problem Text: Will stop all PO anti-diabetic medications upon hospitalization and put pt on sliding scale of insulin. (9) Dyslipidemia Status: Chronic Problem Text: Continue atorvastatin (10) BPH (benign prostatic hyperplasia) Status: Chronic Problem Text: Continue home medications for BPH (11) Down's syndrome Status: Chronic (12) Parkinsons disease Status: Chronic Problem Text: Continue current medications (13) Asthma Status: Chronic Problem Text: Continue albuterol PRN and nebulizer 4 times a day (14) DVT prophylaxis Status: Chronic Problem Text: Lovenox, TEDs, SEQs (15) Advance directive infomation pending evaluation Status: Resolved Problem Text: Pt is a [facility] patient with developmental disability paperwork complete now dnr and dni (16) Pressure injury of skin Status: Acute Problem Text: * pressure injury of coccyx, present on admission * progressed from stage 2 to stage 3 * continue to turn pt every 2 hours Plan/VTE VTE Prophylaxis Ordered?: Yes Plan/Urinary Catheter Reason for insertion/continuin: Critical Pt monitoring Plan IVF: Initiate Diet: Continue Current (Will continue with tube feeding) Activity: Continue Current VS, I&O, 24H, Charli Vital Signs/I&O Vital Signs Date Time Temp Pulse Resp B/P Pulse Ox O2 Delivery O2 Flow Rate FiO2 07/22/16 09:30 Room Air 07/22/16 08:00 96.4 70 12 112/48 91 07/20/16 23:49 2.0 I&O- Last 24 Hours up to 6 AM 07/22/16 06:00 Intake Total 3120 ml Output Total 85 ml Balance 3035 ml Laboratory Data 24H LABS Laboratory Tests 2 07/21/16 17:46: Bedside Glucose (Misc Panel) 180H 07/21/16 23:34: Bedside Glucose (Misc Panel) 179H 07/22/16 05:17: Anion Gap 6L, Blood Urea Nitrogen 20H, Creatinine 0.78, Sodium Level 142, Potassium Level 3.6, Chloride Level 104, Carbon Dioxide Level 32, Calcium Level 8.4L, Glomerular Filtration Rate > 60.0, Magnesium Level 2.4 07/22/16 11:57: Bedside Glucose (Misc Panel) 216H CBC/BMP Laboratory Tests 07/22/16 05:17 Calcium Level 8.4 L, Red Blood Count 3.23 L, Mean Corpuscular Volume 92.6, Mean Corpuscular Hemoglobin 28.7, Mean Corpuscular Hemoglobin Concent 31.0 L, Red Cell Distribution Width 16.2 H Microbiology Microbiology 07/17/16 Clostridium difficile (PCR) - Final, Complete NANDINI VILLAVICENCIO MD Jul 22, 2016 12:54
[2016-07-22 14:00] VITALS: BP 106/55
[2016-07-22] MEDS: ENOXAPARIN 40 MG/0.4 ML SYRINGE (J1650) SC SCH (18:12)
[2016-07-22] MEDS: OLANZapine 5 MG TAB PO SCH (20:03)
[2016-07-22] MEDS: ACETAMINOPHEN TAB 650MG DOSE (2X325MG) PO PRN (20:03)
[2016-07-22 22:00] VITALS: BP 110/54
[2016-07-22] MEDS: D5W/0.45% SODIUM CHLORIDE 1,000 ML IV SCH (22:21)
[2016-07-23] MEDS: HumaLOG INSULIN (NovoLOG) PER UNIT SC SCH ×4 (00:03→17:24)
[2016-07-23 02:00] VITALS: BP 127/59
[2016-07-23] MEDS: ALBUTEROL SULFATE 2.5 MG/0.5 ML INH NEB SOLN INH SCH ×6 (03:48→23:45)
[2016-07-23] MEDS: SODIUM CHLORIDE 0.9% INJ 10 ML SYR IV SCH ×2 (05:07→17:25)
[2016-07-23 05:44] LABS: MEAN CORPUSCULAR HGB CONC 31.6 g/dl (32.0-36.5); MEAN CORPUSCULAR VOLUME 91.7 fl (80.0-96.0); RED CELL DISTRIBUTION WIDTH 16.5 % (11.5-14.5); WHITE BLOOD COUNT 2.7 K/mm3 (4.0-10.0)
[2016-07-23 06:00] VITALS: BP 128/62
[2016-07-23 06:01] LABS: ANION GAP 8 MEQ/L (8-16); BLOOD UREA NITROGEN 20 MG/DL (7-18); CALCIUM LEVEL 8.5 MG/DL (8.8-10.2); CARBON DIOXIDE LEVEL 30 MEQ/L (21-32); CHLORIDE LEVEL 104 MEQ/L (98-107); CREATININE FOR GFR 0.83 MG/DL (0.70-1.30); GLOMERULAR FILTRATION RATE > 60.0 (>49); GLUCOSE, FASTING 129 MG/DL (80-110); MAGNESIUM LEVEL 2.3 MG/DL (1.8-2.4); POTASSIUM SERUM 3.8 MEQ/L (3.5-5.1); SODIUM LEVEL 142 MEQ/L (136-145)
[2016-07-23] MEDS: SINEMET 25-100 MG TAB PO SCH ×3 (06:09→18:25)
[2016-07-23] MEDS: BUDESONIDE 0.5 MG/2 ML INHALATION SUSPENSION INH SCH ×2 (07:38→19:44)
[2016-07-23] MEDS: NYSTATIN 100,000 UNITS/GM TOPICAL PWD 15 GM TOP SCH ×2 (09:00→21:05)
--- NOTE | 2016-07-23 10:23 | IPNPDOC ---
Subjective General Date Seen The patient was seen on 07/23/16. Subjective Chief Complaint/HPI The patient is a 61-year-old male admitted with a reason for visit of Mrsa Bacteremia. Events since last encounter jejunostomy tube got clogged last night have been unable to open it. will try to open it today again . no fever or chills, no chest pain or SOB , Off oxygen now. Pateint awake all night sleeping during the day ,sleep cycle has been reversed. Objective Physical Examination General Exam: Positive: No Acute Distress, Other (drowsy) Eye Exam: Positive: Conjunctiva & lids normal, EOMI, PERRLA, Negative: Ptosis, Sclera icteric ENT Exam: Positive: Atraumatic, Nares Patent, Pharynx Normal, Tongue Midline, Negative: Mucous membr. moist/pink, Pharyngeal Edema Neck Exam: Positive: Other (Firm smooth nodule approx 1cm felt on the left that rises with swallowing. ), Supple, Negative: JVD Chest Exam: Positive: Clear to auscultation, Normal air movement, Wheezing ( Originating from upper airway) Heart Exam: Positive: Murmurs (Systolic), Normal S1, Normal S2, Rate Normal, Regular Rhythm Abdomen Exam: Positive: Mass (Liver edge palpated at RUQ), Normal bowel sounds , Other (Peg tube placement site is mildly erythematous with minimal serous drainage surrounding the tube. No evidence of acute infectious process, this is likely from irritation.), Soft, Tenderness (Tender to palpation on RUQ) Male Exam: Positive: Normal Genital Exam Extremity Exam: Positive: Normal pulses, Negative: Clubbing, Cyanosis, Edema Skin Exam: Positive: Nl turgor and temperature, Other skin issue (Mild reddening of skin over bilateral upper buttocks without any evidence of skin breakdown. ), Negative: Breakdown, Rash Assessment /Plan Problems Problems: (1) Feeding tube dysfunction Status: Acute Problem Text: * prior gastrostomy tube in colon , there is no communication with the stomach there is no leakage from the stomach. TO be managed nonsurgically . 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 * currently had G-J tube placed on 07/21/16, jejunostomy port to be used for tube feeds and the gastrostomy port can be used for meds and then to be kept to gravity. * will dc tpn (2) Aspiration pneumonia Status: Resolved Problem Text: on Zosyn and Vancomycin now day 10. pt was seen by dr corral on 07/13, his peg tube when it was placed had pierced the colon pt was returned to floor and picc line was placed for TPN pt will have a new Jtube placed this week. (3) Acute respiratory failure with hypoxemia Status: Resolved Problem Text: due to aspiration pneumonia will continue with zosyn to vancomycin Day 6 (4) MRSA bacteremia Status: Resolved Problem Text: Pt's B/C from 07/05 showed growth of MRSA in one tube and no growth in the other. Pt has a reported temperature of 101F on 07/05/16 blood cultures form 07/07 were negative X2 sets (5) Diarrhea Status: Resolved Problem Text: due to tube feeds, now on tpn so resolved (6) Neck mass Status: Acute Problem Text: neck ultrasound shows a solid mass in the neck with adjacent lymph node. will need FNAC (7) Anemia Status: Acute Problem Text: Pt's hgb today is 10.5. Going over the pt's past history, it appears his baseline hovers around a hbg of 10-11. Will transfuse if necessary otherwise, we will monitor his h/h through CBC in AM labs. (8) DM2 (diabetes mellitus, type 2) Status: Chronic Problem Text: Will stop all PO anti-diabetic medications upon hospitalization and put pt on sliding scale of insulin. (9) Dyslipidemia Status: Chronic Problem Text: Continue atorvastatin (10) BPH (benign prostatic hyperplasia) Status: Chronic Problem Text: Continue home medications for BPH (11) Down's syndrome Status: Chronic (12) Parkinsons disease Status: Chronic Problem Text: Continue current medications (13) Asthma Status: Chronic Problem Text: Continue albuterol PRN and nebulizer 4 times a day (14) DVT prophylaxis Status: Chronic Problem Text: Lovenox, TEDs, SEQs (15) Advance directive infomation pending evaluation Status: Resolved Problem Text: Pt is a [facility] patient with developmental disability paperwork complete now dnr and dni (16) Pressure injury of skin Status: Acute Problem Text: * pressure injury of coccyx, present on admission * progressed from stage 2 to stage 3 * continue to turn pt every 2 hours Plan/VTE VTE Prophylaxis Ordered?: Yes Plan/Urinary Catheter Reason for insertion/continuin: Critical Pt monitoring Plan IVF: Initiate Diet: Continue Current (Will continue with tube feeding) Activity: Continue Current VS, I&O, 24H, Fishbone Vital Signs/I&O Vital Signs Date Time Temp Pulse Resp B/P Pulse Ox O2 Delivery O2 Flow Rate FiO2 07/23/16 06:00 97.0 77 20 128/62 95 Room Air 07/20/16 23:49 2.0 I&O- Last 24 Hours up to 6 AM 07/23/16 06:00 Intake Total 2010 ml Output Total 50 ml Balance 1960 ml Laboratory Data 24H LABS Laboratory Tests 2 07/22/16 11:57: Bedside Glucose (Misc Panel) 216H 07/22/16 16:38: Bedside Glucose (Misc Panel) 92 07/22/16 23:40: Bedside Glucose (Misc Panel) 143H 07/23/16 05:33: Anion Gap 8, Blood Urea Nitrogen 20H, Creatinine 0.83, Sodium Level 142, Potassium Level 3.8, Chloride Level 104, Carbon Dioxide Level 30, Calcium Level 8.5L, Glomerular Filtration Rate > 60.0, Magnesium Level 2.3 CBC/BMP Laboratory Tests 07/23/16 05:33 Calcium Level 8.5 L, Red Blood Count 3.28 L, Mean Corpuscular Volume 91.7, Mean Corpuscular Hemoglobin 29.0, Mean Corpuscular Hemoglobin Concent 31.6 L, Red Cell Distribution Width 16.5 H Microbiology Microbiology 07/17/16 Clostridium difficile (PCR) - Final, Complete NANDINI VILLAVICENCIO MD Jul 23, 2016 07:51
[2016-07-23 14:00] VITALS: BP 114/58
[2016-07-23] MEDS: D5W/0.45% SODIUM CHLORIDE 1,000 ML IV SCH (14:55)
[2016-07-23] MEDS: ACETAMINOPHEN TAB 650MG DOSE (2X325MG) PO PRN (17:26)
[2016-07-23] MEDS: ENOXAPARIN 40 MG/0.4 ML SYRINGE (J1650) SC SCH (17:26)
[2016-07-23] MEDS: OLANZapine 5 MG TAB PO SCH (21:05)
[2016-07-23 22:00] VITALS: BP 110/55
[2016-07-24] MEDS: HumaLOG INSULIN (NovoLOG) PER UNIT SC SCH ×4 (00:38→17:35)
[2016-07-24] MEDS: ALBUTEROL SULFATE 2.5 MG/0.5 ML INH NEB SOLN INH SCH ×6 (03:56→23:49)
[2016-07-24] MEDS: SODIUM CHLORIDE 0.9% INJ 10 ML SYR IV SCH ×2 (05:36→18:13)
[2016-07-24 06:00] VITALS: BP 118/56
[2016-07-24 06:15] LABS: ANION GAP 9 MEQ/L (8-16); BLOOD UREA NITROGEN 16 MG/DL (7-18); CALCIUM LEVEL 8.2 MG/DL (8.8-10.2); CARBON DIOXIDE LEVEL 28 MEQ/L (21-32); CHLORIDE LEVEL 105 MEQ/L (98-107); CREATININE FOR GFR 0.85 MG/DL (0.70-1.30); GLOMERULAR FILTRATION RATE > 60.0 (>49); GLUCOSE, FASTING 98 MG/DL (80-110); MAGNESIUM LEVEL 2.2 MG/DL (1.8-2.4); POTASSIUM SERUM 3.5 MEQ/L (3.5-5.1); SODIUM LEVEL 142 MEQ/L (136-145)
[2016-07-24 06:29] LABS: MEAN CORPUSCULAR HEMOGLOBIN 29.6 pg (27.0-33.0); MEAN CORPUSCULAR HGB CONC 32.1 g/dl (32.0-36.5); MEAN CORPUSCULAR VOLUME 92.1 fl (80.0-96.0); RED CELL DISTRIBUTION WIDTH 16.7 % (11.5-14.5); WHITE BLOOD COUNT 2.9 K/mm3 (4.0-10.0)
[2016-07-24] MEDS: SINEMET 25-100 MG TAB PO SCH ×3 (06:44→18:13)
[2016-07-24] MEDS: BUDESONIDE 0.5 MG/2 ML INHALATION SUSPENSION INH SCH ×2 (07:39→19:37)
[2016-07-24] MEDS: D5W/0.45% SODIUM CHLORIDE 1,000 ML IV SCH (08:03)
[2016-07-24] MEDS: NYSTATIN 100,000 UNITS/GM TOPICAL PWD 15 GM TOP SCH ×2 (08:04→20:32)
--- NOTE | 2016-07-24 12:23 | IPNPDOC ---
Subjective General Date Seen The patient was seen on 07/24/16. Subjective Chief Complaint/HPI The patient is a 61-year-old male admitted with a reason for visit of Mrsa Bacteremia. Events since last encounter pateints jejunostomy port got plugged so was taken out as during the procedure og G-J placement did not show any gastric leak or communication with colon so only gastrostomy tube was left which will now be used both for feeding and medications, needs to be flushed with 10 cc syringe every 4 hours. Objective Physical Examination General Exam: Positive: No Acute Distress, Other (drowsy) Eye Exam: Positive: Conjunctiva & lids normal, EOMI, PERRLA, Negative: Ptosis, Sclera icteric ENT Exam: Positive: Atraumatic, Nares Patent, Pharynx Normal, Tongue Midline, Negative: Mucous membr. moist/pink, Pharyngeal Edema Neck Exam: Positive: Other (Firm smooth nodule approx 1cm felt on the left that rises with swallowing. ), Supple, Negative: JVD Chest Exam: Positive: Clear to auscultation, Normal air movement, Wheezing ( Originating from upper airway) Heart Exam: Positive: Murmurs (Systolic), Normal S1, Normal S2, Rate Normal, Regular Rhythm Abdomen Exam: Positive: Mass (Liver edge palpated at RUQ), Normal bowel sounds , Other (Peg tube placement site is mildly erythematous with minimal serous drainage surrounding the tube. No evidence of acute infectious process, this is likely from irritation.), Soft, Tenderness (Tender to palpation on RUQ) Male Exam: Positive: Normal Genital Exam Extremity Exam: Positive: Normal pulses, Negative: Clubbing, Cyanosis, Edema Skin Exam: Positive: Nl turgor and temperature, Other skin issue (Mild reddening of skin over bilateral upper buttocks without any evidence of skin breakdown. ), Negative: Breakdown, Rash Assessment /Plan Problems Problems: (1) Feeding tube dysfunction Status: Acute Problem Text: * prior gastrostomy tube placed endoscopically in prior admission now in colon , there is no communication with the stomach there is no leakage from the stomach. TO be managed nonsurgically . 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 this tube is not be used at all. * currently had G-J tube placed on 07/21/16 by IR , jejunostomy port got blocked so was taken out and only the gastrostomy tube left. Now patient essentially has a gastrostomy tube to be used for tube feeds and meds. (2) Aspiration pneumonia Status: Resolved Problem Text: finished Zosyn and Vancomycin (3) Acute respiratory failure with hypoxemia Status: Resolved Problem Text: due to aspiration pneumonia finished antibiotics. (4) MRSA bacteremia Status: Resolved Problem Text: Pt's B/C from 07/05 showed growth of MRSA in one tube and no growth in the other. Pt has a reported temperature of 101F on 07/05/16 blood cultures form 07/07 were negative X2 sets (5) Diarrhea Status: Resolved Problem Text: due to tube feeds, possibly as the tube was in colon .now resolved (6) Neck mass Status: Acute Problem Text: neck ultrasound shows a solid mass in the neck with adjacent lymph node. will need FNAC (7) Anemia Status: Chronic Problem Text: Going over the pt's past history, it appears his baseline hovers around a hbg of 10-11. Will transfuse if necessary otherwise, we will monitor his h/h through CBC in AM labs. (8) DM2 (diabetes mellitus, type 2) Status: Chronic Problem Text: Will stop all PO anti-diabetic medications upon hospitalization and put pt on sliding scale of insulin. (9) Dyslipidemia Status: Chronic Problem Text: Continue atorvastatin (10) BPH (benign prostatic hyperplasia) Status: Chronic Problem Text: Continue home medications for BPH (11) Down's syndrome Status: Chronic (12) Parkinsons disease Status: Chronic Problem Text: Continue current medications (13) Asthma Status: Chronic Problem Text: Continue albuterol PRN and nebulizer 4 times a day (14) DVT prophylaxis Status: Chronic Problem Text: Lovenox, TEDs, SEQs (15) Advance directive infomation pending evaluation Status: Resolved Problem Text: Pt is a [facility] patient with developmental disability paperwork complete now dnr and dni (16) Pressure injury of skin Status: Acute Problem Text: * pressure injury of coccyx, present on admission * progressed from stage 2 to stage 3 * continue to turn pt every 2 hours Plan/VTE VTE Prophylaxis Ordered?: Yes Plan/Urinary Catheter Reason for insertion/continuin: Critical Pt monitoring Plan IVF: Initiate Diet: Continue Current (Will continue with tube feeding) Activity: Continue Current VS, I&O, 24H, Charli Vital Signs/I&O Vital Signs Date Time Temp Pulse Resp B/P Pulse Ox O2 Delivery O2 Flow Rate FiO2 07/24/16 06:00 99.0 73 19 118/56 96 Room Air 07/20/16 23:49 2.0 I&O- Last 24 Hours up to 6 AM 07/24/16 06:00 Intake Total 0 ml Output Total 0 ml Balance 0 ml Laboratory Data 24H LABS Laboratory Tests 2 07/23/16 17:17: Bedside Glucose (Misc Panel) 96 07/24/16 00:13: Bedside Glucose (Misc Panel) 146H 07/24/16 05:41: Anion Gap 9, Blood Urea Nitrogen 16, Creatinine 0.85, Sodium Level 142, Potassium Level 3.5, Chloride Level 105, Carbon Dioxide Level 28, Calcium Level 8.2L, Glomerular Filtration Rate > 60.0, Magnesium Level 2.2 07/24/16 06:01: Bedside Glucose (Misc Panel) 102 07/24/16 11:34: Bedside Glucose (Misc Panel) 154H CBC/BMP Laboratory Tests 07/24/16 05:41 Calcium Level 8.2 L, Red Blood Count 3.12 L, Mean Corpuscular Volume 92.1, Mean Corpuscular Hemoglobin 29.6, Mean Corpuscular Hemoglobin Concent 32.1, Red Cell Distribution Width 16.7 H Microbiology Microbiology 07/17/16 Clostridium difficile (PCR) - Final, Complete NANDINI VILLAVICENCIO MD Jul 24, 2016 12:23
[2016-07-24 14:00] VITALS: BP 106/55
[2016-07-24] MEDS: ENOXAPARIN 40 MG/0.4 ML SYRINGE (J1650) SC SCH ×2 (17:35→18:13)
[2016-07-24] MEDS: OLANZapine 5 MG TAB PO SCH (20:32)
[2016-07-24 22:00] VITALS: BP 118/57
[2016-07-25] MEDS: HumaLOG INSULIN (NovoLOG) PER UNIT SC SCH ×5 (00:22→23:59)
[2016-07-25] MEDS: ALBUTEROL SULFATE 2.5 MG/0.5 ML INH NEB SOLN INH SCH ×5 (03:23→19:46)
[2016-07-25 06:00] VITALS: BP 132/62
[2016-07-25] MEDS: SINEMET 25-100 MG TAB PO SCH ×3 (06:14→18:31)
[2016-07-25] MEDS: SODIUM CHLORIDE 0.9% INJ 10 ML SYR IV SCH ×2 (06:24→16:48)
[2016-07-25] MEDS: BUDESONIDE 0.5 MG/2 ML INHALATION SUSPENSION INH SCH ×2 (07:32→19:46)
[2016-07-25] MEDS: NYSTATIN 100,000 UNITS/GM TOPICAL PWD 15 GM TOP SCH ×2 (08:47→21:15)
--- NOTE | 2016-07-25 11:04 | IPNPDOC ---
Subjective General Date Seen The patient was seen on 07/25/16. Subjective Chief Complaint/HPI The patient is a 61-year-old male admitted with a reason for visit of Mrsa Bacteremia. General: Reports: ROS Unobtainable Objective Physical Examination General Exam: Positive: No Acute Distress, Other (drowsy) Eye Exam: Positive: Conjunctiva & lids normal, EOMI, PERRLA, Negative: Ptosis, Sclera icteric ENT Exam: Positive: Atraumatic, Nares Patent, Pharynx Normal, Tongue Midline, Negative: Mucous membr. moist/pink, Pharyngeal Edema Neck Exam: Positive: Other (Firm smooth nodule approx 1cm felt on the left that rises with swallowing. ), Supple, Negative: JVD Chest Exam: Positive: Clear to auscultation, Normal air movement Heart Exam: Positive: Murmurs (Systolic), Normal S1, Normal S2, Rate Normal, Regular Rhythm Abdomen Exam: Positive: Mass (Liver edge palpated at RUQ), Normal bowel sounds , Other (Peg tube placement site is mildly erythematous with minimal serous drainage surrounding the tube. No evidence of acute infectious process, this is likely from irritation.), Soft Male Exam: Positive: Normal Genital Exam Extremity Exam: Positive: Normal pulses, Negative: Clubbing, Cyanosis, Edema Skin Exam: Positive: Nl turgor and temperature, Other skin issue (Mild reddening of skin over bilateral upper buttocks without any evidence of skin breakdown. ), Negative: Breakdown, Rash Assessment /Plan Problems Problems: (1) Feeding tube dysfunction Status: Acute Problem Text: * prior gastrostomy tube placed endoscopically in prior admission now in colon , there is no communication with the stomach there is no leakage from the stomach. To be managed nonsurgically . 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 this tube is not be used at all. * currently had G-J tube placed on 07/21/16 by IR , jejunostomy port got blocked so was taken out and only the gastrostomy tube left. Now patient essentially has a gastrostomy tube to be used for tube feeds and meds. * will need to be upright for feeding * will d/c fluids today, if he tolerates it and his labs appear stable in am will d/c home (2) Aspiration pneumonia Status: Resolved Problem Text: finished Zosyn and Vancomycin (3) Acute respiratory failure with hypoxemia Status: Resolved Problem Text: due to aspiration pneumonia finished antibiotics. (4) MRSA bacteremia Status: Resolved Problem Text: Pt's B/C from 07/05 showed growth of MRSA in one tube and no growth in the other. Pt has a reported temperature of 101F on 07/05/16 blood cultures form 07/07 were negative X2 sets (5) Diarrhea Status: Resolved Problem Text: due to tube feeds, possibly as the tube was in colon resolved cdiff was negative (6) Neck mass Status: Acute Problem Text: neck ultrasound shows a solid mass in the neck with adjacent lymph node. will need FNAC (7) Anemia Status: Chronic Problem Text: Going over the pt's past history, it appears his baseline hovers around a hbg of 10-11. Will transfuse if necessary otherwise, we will monitor his h/h through CBC in AM labs. (8) DM2 (diabetes mellitus, type 2) Status: Chronic Problem Text: Will stop all PO anti-diabetic medications upon hospitalization and put pt on sliding scale of insulin. (9) Dyslipidemia Status: Chronic Problem Text: Continue atorvastatin (10) BPH (benign prostatic hyperplasia) Status: Chronic Problem Text: Continue home medications for BPH (11) Down's syndrome Status: Chronic (12) Parkinsons disease Status: Chronic Problem Text: Continue current medications (13) Asthma Status: Chronic Problem Text: Continue albuterol PRN and nebulizer 4 times a day (14) DVT prophylaxis Status: Chronic Problem Text: Lovenox, TEDs, SEQs (15) Advance directive infomation pending evaluation Status: Resolved Problem Text: Pt is a [facility] patient with developmental disability paperwork complete now dnr and dni (16) Pressure injury of skin Status: Acute Problem Text: * pressure injury of coccyx, present on admission * progressed from stage 2 to stage 3 * continue to turn pt every 2 hours Plan/VTE VTE Prophylaxis Ordered?: Yes Plan/Urinary Catheter Reason for insertion/continuin: Critical Pt monitoring Plan IVF: Initiate Diet: Continue Current (Will continue with tube feeding) Activity: Continue Current VS, I&O, 24H, Fishbone Vital Signs/I&O Vital Signs Date Time Temp Pulse Resp B/P Pulse Ox O2 Delivery O2 Flow Rate FiO2 07/25/16 06:00 97.0 90 18 132/62 96 Room Air 07/20/16 23:49 2.0 I&O- Last 24 Hours up to 6 AM 07/25/16 06:00 Intake Total 1320 ml Output Total 0 ml Balance 1320 ml Laboratory Data 24H LABS Laboratory Tests 2 07/24/16 11:34: Bedside Glucose (Misc Panel) 154H 07/24/16 16:47: Bedside Glucose (Misc Panel) 94 07/25/16 00:13: Bedside Glucose (Misc Panel) 117H 07/25/16 06:05: Bedside Glucose (Misc Panel) 104 Microbiology Microbiology 07/17/16 Clostridium difficile (PCR) - Final, Complete YOVANNY REAVES DO Jul 25, 2016 11:04
[2016-07-25 14:00] VITALS: BP 101/52
[2016-07-25] MEDS: ENOXAPARIN 40 MG/0.4 ML SYRINGE (J1650) SC SCH (16:48)
[2016-07-25] MEDS: OLANZapine 5 MG TAB PO SCH (21:15)
[2016-07-25 22:00] VITALS: BP 112/56
[2016-07-26] MEDS: ALBUTEROL SULFATE 2.5 MG/0.5 ML INH NEB SOLN INH SCH ×6 (00:10→19:20)
[2016-07-26] MEDS: SODIUM CHLORIDE 0.9% INJ 10 ML SYR IV SCH ×2 (05:30→18:35)
[2016-07-26] MEDS: HumaLOG INSULIN (NovoLOG) PER UNIT SC SCH ×3 (05:48→18:35)
[2016-07-26 05:50] LABS: EOS # 0.1 K/mm3 (0.0-0.50); LARGE UNSTAINED CELL % 1.1 % (0.0-4.0); LYMPH % 26.9 % (24.0-44.0); MEAN CORPUSCULAR HEMOGLOBIN 29.6 pg (27.0-33.0); MEAN CORPUSCULAR HGB CONC 31.9 g/dl (32.0-36.5); MEAN CORPUSCULAR VOLUME 92.8 fl (80.0-96.0); MONO # 0.2 K/mm3 (0.0-0.8); MONO % 5.1 % (0.0-5.0); NEUTROPHILS # 2.3 K/mm3 (1.8-7.7); PLATELET COUNT, AUTOMATED 117 k/mm3 (150-450); RED CELL DISTRIBUTION WIDTH 17.1 % (11.5-14.5); WHITE BLOOD COUNT 3.7 K/mm3 (4.0-10.0)
[2016-07-26] MEDS: SINEMET 25-100 MG TAB PO SCH ×3 (05:54→18:36)
[2016-07-26 06:00] VITALS: BP 114/58
[2016-07-26 06:18] LABS: ALBUMIN 2.4 GM/DL (3.2-5.2); ALBUMIN/GLOBULIN RATIO 0.49 (1.00-1.93); ALKALINE PHOSPHATASE 60 U/L (45-117); ALT/SGPT 11 U/L (12-78); ANION GAP 9 MEQ/L (8-16); AST/SGOT 16 U/L (15-37); BILIRUBIN,TOTAL 0.4 MG/DL (0.2-1.0); BLOOD UREA NITROGEN 17 MG/DL (7-18); CALCIUM LEVEL 8.1 MG/DL (8.8-10.2); CARBON DIOXIDE LEVEL 27 MEQ/L (21-32); CHLORIDE LEVEL 106 MEQ/L (98-107); CREATININE FOR GFR 0.81 MG/DL (0.70-1.30); GLOMERULAR FILTRATION RATE > 60.0 (>49); GLUCOSE, FASTING 93 MG/DL (80-110); POTASSIUM SERUM 3.4 MEQ/L (3.5-5.1); SODIUM LEVEL 142 MEQ/L (136-145); TOTAL PROTEIN 7.3 GM/DL (6.4-8.2)
[2016-07-26] MEDS: BUDESONIDE 0.5 MG/2 ML INHALATION SUSPENSION INH SCH ×2 (07:38→19:20)
[2016-07-26 08:00] VITALS: BP 102/53
[2016-07-26] MEDS ORDERED: POTASSIUM CHLORIDE 10 MEQ SR TABLET PO SCH (09:00)
[2016-07-26] MEDS ORDERED: POTASSIUM CHLORIDE 10% LIQ 20 MEQ/15 ML UDC PO ONE (10:45)
[2016-07-26] MEDS: NYSTATIN 100,000 UNITS/GM TOPICAL PWD 15 GM TOP SCH ×2 (11:18→20:44)
[2016-07-26] MEDS: ENOXAPARIN 40 MG/0.4 ML SYRINGE (J1650) SC SCH (18:35)
[2016-07-26] MEDS: OLANZapine 5 MG TAB PO SCH (20:43)
[2016-07-26 22:00] VITALS: BP 116/56
[2016-07-27] MEDS: ALBUTEROL SULFATE 2.5 MG/0.5 ML INH NEB SOLN INH SCH ×5 (00:17→15:09)
[2016-07-27] MEDS: HumaLOG INSULIN (NovoLOG) PER UNIT SC SCH ×3 (00:21→12:50)
[2016-07-27 05:13] LABS: MEAN CORPUSCULAR HEMOGLOBIN 29.1 pg (27.0-33.0); MEAN CORPUSCULAR HGB CONC 31.4 g/dl (32.0-36.5); MEAN CORPUSCULAR VOLUME 92.6 fl (80.0-96.0); WHITE BLOOD COUNT 3.6 K/mm3 (4.0-10.0)
[2016-07-27 05:32] LABS: ANION GAP 9 MEQ/L (8-16); BLOOD UREA NITROGEN 17 MG/DL (7-18); CALCIUM LEVEL 8.1 MG/DL (8.8-10.2); CARBON DIOXIDE LEVEL 28 MEQ/L (21-32); CHLORIDE LEVEL 106 MEQ/L (98-107); CREATININE FOR GFR 0.73 MG/DL (0.70-1.30); GLOMERULAR FILTRATION RATE > 60.0 (>49); GLUCOSE, FASTING 84 MG/DL (80-110); POTASSIUM SERUM 3.7 MEQ/L (3.5-5.1); SODIUM LEVEL 143 MEQ/L (136-145)
[2016-07-27] MEDS: SINEMET 25-100 MG TAB PO SCH ×2 (05:48→12:51)
[2016-07-27] MEDS: SODIUM CHLORIDE 0.9% INJ 10 ML SYR IV SCH (05:48)
[2016-07-27 06:00] VITALS: BP 116/72
[2016-07-27] MEDS: BUDESONIDE 0.5 MG/2 ML INHALATION SUSPENSION INH SCH (07:19)
[2016-07-27 08:25] VITALS: BP 106/53
[2016-07-27] MEDS: NYSTATIN 100,000 UNITS/GM TOPICAL PWD 15 GM TOP SCH (09:49)
--- NOTE | 2016-07-27 12:20 | IPNPDOC ---
Subjective Date Seen The patient was seen on 07/26/16. Subjective Chief Complaint/HPI The patient is a 61-year-old male admitted with a reason for visit of Mrsa Bacteremia. General: Reports: ROS Unobtainable Objective Physical Examination General Exam: Positive: No Acute Distress, Other (drowsy) Eye Exam: Positive: Conjunctiva & lids normal, EOMI, PERRLA, Negative: Ptosis, Sclera icteric ENT Exam: Positive: Atraumatic, Nares Patent, Pharynx Normal, Tongue Midline, Negative: Mucous membr. moist/pink, Pharyngeal Edema Neck Exam: Positive: Other (Firm smooth nodule approx 1cm felt on the left that rises with swallowing. ), Supple, Negative: JVD Chest Exam: Positive: Clear to auscultation, Normal air movement Heart Exam: Positive: Murmurs (Systolic), Normal S1, Normal S2, Rate Normal, Regular Rhythm Abdomen Exam: Positive: Mass (Liver edge palpated at RUQ), Normal bowel sounds , Other (Peg tube placement site is mildly erythematous with minimal serous drainage surrounding the tube. No evidence of acute infectious process, this is likely from irritation.), Soft Male Exam: Positive: Normal Genital Exam Extremity Exam: Positive: Normal pulses, Negative: Clubbing, Cyanosis, Edema Skin Exam: Positive: Nl turgor and temperature, Other skin issue (Mild reddening of skin over bilateral upper buttocks without any evidence of skin breakdown. ), Negative: Breakdown, Rash Assessment /Plan Problems (1) Pressure injury of skin Status: Acute Problem Text: * pressure injury of coccyx, present on admission * progressed from stage 2 to stage 3 * continue to turn pt every 2 hours * will need hospital bed (2) Feeding tube dysfunction Status: Acute Problem Text: * prior gastrostomy tube placed endoscopically in prior admission now in colon , there is no communication with the stomach there is no leakage from the stomach. To be managed nonsurgically . 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 this tube is not be used at all. * currently had G-J tube placed on 07/21/16 by IR , jejunostomy port got blocked so was taken out and only the gastrostomy tube left. Now patient essentially has a gastrostomy tube to be used for tube feeds and meds. * will need to be upright for feeding * d/c home today, f/u with Dr Davis in the office (3) Aspiration pneumonia Status: Resolved Problem Text: finished Zosyn and Vancomycin (4) Acute respiratory failure with hypoxemia Status: Resolved Problem Text: due to aspiration pneumonia finished antibiotics. (5) MRSA bacteremia Status: Resolved Problem Text: Pt's B/C from 07/05 showed growth of MRSA in one tube and no growth in the other. Pt has a reported temperature of 101F on 07/05/16 blood cultures form 07/07 were negative X2 sets (6) Diarrhea Status: Resolved Problem Text: due to tube feeds, possibly as the tube was in colon resolved cdiff was negative (7) Neck mass Status: Acute Problem Text: neck ultrasound shows a solid mass in the neck with adjacent lymph node. will need FNAC (8) Anemia Status: Chronic Problem Text: Going over the pt's past history, it appears his baseline hovers around a hbg of 10-11. Will transfuse if necessary otherwise, we will monitor his h/h through CBC in AM labs. (9) DM2 (diabetes mellitus, type 2) Status: Chronic Problem Text: Will stop all PO anti-diabetic medications upon hospitalization and put pt on sliding scale of insulin. (10) Dyslipidemia Status: Chronic Problem Text: Continue atorvastatin (11) BPH (benign prostatic hyperplasia) Status: Chronic Problem Text: Continue home medications for BPH (12) Down's syndrome Status: Chronic (13) Parkinsons disease Status: Chronic Problem Text: Continue current medications (14) Asthma Status: Chronic Problem Text: Continue albuterol PRN and nebulizer 4 times a day (15) DVT prophylaxis Status: Chronic Problem Text: Lovenox, TEDs, SEQs (16) Advance directive infomation pending evaluation Status: Resolved Problem Text: Pt is a [facility] patient with developmental disability paperwork complete now dnr and dni Plan/VTE VTE Prophylaxis Ordered?: Yes Plan/Urinary Catheter Reason for insertion/continuin: Critical Pt monitoring Plan IVF: Initiate Diet: Continue Current (Will continue with tube feeding) Activity: Continue Current VS, I&O, 24H, Fishbone Vital Signs/I&O Vital Signs Date Time Temp Pulse Resp B/P Pulse Ox O2 Delivery O2 Flow Rate FiO2 07/27/16 12:05 Room Air 07/27/16 08:25 95.6 72 18 106/53 96 I&O- Last 24 Hours up to 6 AM 07/27/16 06:00 Intake Total 3497 ml Output Total 0 ml Balance 3497 ml Laboratory Data 24H LABS Laboratory Tests 2 07/26/16 23:50: Bedside Glucose (Misc Panel) 130H 07/27/16 05:03: Anion Gap 9, Blood Urea Nitrogen 17, Creatinine 0.73, Sodium Level 143, Potassium Level 3.7, Chloride Level 106, Carbon Dioxide Level 28, Calcium Level 8.1L, Estimated Mean Plasma Glucose 128H, Glomerular Filtration Rate > 60.0, Hemoglobin A1c 6.1 07/27/16 11:38: Bedside Glucose (Misc Panel) 121H CBC/BMP Laboratory Tests 07/27/16 05:03 Calcium Level 8.1 L, Red Blood Count 3.38 L, Mean Corpuscular Volume 92.6, Mean Corpuscular Hemoglobin 29.1, Mean Corpuscular Hemoglobin Concent 31.4 L, Red Cell Distribution Width 17.0 H Microbiology Microbiology 07/17/16 Clostridium difficile (PCR) - Final, Complete YOVANNY REAVES DO Jul 27, 2016 12:20
[2016-07-27 14:00] VITALS: BP 116/58
--- NOTE | 2016-07-28 08:36 | DSES ---
DATE OF ADMISSION: 07/07/2016 DATE OF DISCHARGE: 07/27/2016 PRIMARY CARE PROVIDER: The patient is a [facility] ([facility]) patient. REASON FOR ADMISSION: Methicillin resistant Staphylococcus aureus (MRSA) bacteremia. FINAL DIAGNOSES: 1. Pressure injury to the skin 2. Feeding tube dysfunction. 3. Aspiration pneumonia. 4. Acute respiratory failure with hypoxia. 5. MRSA bacteremia. 6. Diarrhea 7. Neck mass, in need of fine-needle aspiration. 8. Anemia. 9. Type 2 diabetes. 10. Dyslipidemia. 11. Benign prostatic hypertrophy (BPH). 12. Down's syndrome. 13. Parkinson's disease. 14. Asthma. HISTORY OF PRESENT ILLNESS: The patient is a 61-year-old [facility] patient with multiple comorbidities and multiple hospitalizations, presented to the emergency room with MRSA bacteremia, result is from an emergency department visit on 07/05/2016. He was recently admitted for multifocal aspiration pneumonia 1 month ago and treated with 7 days of vancomycin and meropenem. Percutaneous endoscopic gastrostomy (PEG) tube was also placed during the previous admission due to recurrent episodes of aspiration pneumonia. The patient was discharged on June 26, 2016 after resolution of the pneumonia. The patient is normally nonverbal at baseline. He was there with his case resolution specialist. He was found to have a temperature of 101. He was noted to have multiple episodes of grasping of his head repeatedly in pain. He was witnessed doubled over and clutching his abdomen before taking a shower two nights ago. He was admitted under hospitalist service. He was also having foul-colored, mustard yellow stool and some watery diarrhea. HOSPITAL COURSE: Because of the positive blood cultures on July 05, the patient had a temperature of 101 on July 05 when he was brought in. He was continued on vancomycin. Echocardiogram was ordered, which showed trace pericardial effusion. Aortic valve, mitral valve and tricuspid valve appear to be normal. The patient was mildly tachycardiac during the exam. Ejection fraction was about 40%. The patient was continued on his vancomycin; however, due to pain in his abdomen. Dr. Paige was consulted for repeat evaluation of the PEG tube. He did not feel that the PEG tube was a cause of the infection since he had multiple CTs over the past admission concerning the PEG tube. He recommended interventional radiology to replace the PEG tube to a gastrojejunostomy tube so he can be fed beyond the pylorus and it prevents further episodes of aspiration pneumonia. Dr. Davis was consulted. He saw the patient and he agreed to take the patient for a change in his PEG tube to a gastrojejunostomy tube. However, after dye was inserted, the patient was found to have the tube through his colon. At this time, he was returned back to the hospital floor. Dr. Dvais recommended that the patient have a different tube be put in on the other side and to slowly remove this tube and allow it to heal and pull it out completely in 2-3 months. He did not want us to use the tube at the current time and to feed the patient through IV. He was started on TPN for a few days until he was taken back again by intervention radiology where a second tube was placed. After that time, he was started on tube feeds, which she tolerated well. Once the patient was stable to go home, he was discharged. Diet through PEG tube. Activities as tolerated. MEDICATIONS: Discharge medications include: - albuterol sulfate 2.5 mg inhaled four times a day - atorvastatin 40 mg at bedtime - Sinemet 1 tablet three times a day - senna 1 tablet at night as needed for constipation - Zyprexa 5 mg at bedtime - Paxil 20 mg daily - MiraLax 17 grams as needed for constipation - Flomax 0.4 mg daily The patient is to follow up for a fine-needle aspiration of a neck mass that was an incidental finding on imaging.
== END 2016-07-27 16:15 | disposition home or self-care (01) | DRG 177 ==
LOC: M ED 12:46 → M ED INP 20:33 → M MSPAV 07-08 15:43 → M ICU 07-09 09:55 → M MSPAV 07-12 16:37
PROVIDERS: ADMIT Hospitalist; ATTEND Internal Medicine
PROC: 05HB33Z Insertion of Infusion Device into Right Basilic Vein, Percutaneous Approach (ICD-10-PCS; principal; 2016-07-13)
PROC: BD16YZZ Fluoroscopy of Upper GI and Small Bowel using Other Contrast (ICD-10-PCS; 2016-07-13)
PROC: 3E0336Z Introduction of Nutritional Substance into Peripheral Vein, Percutaneous Approach (ICD-10-PCS; 2016-07-13)
PROC: 0DHA4UZ Insertion of Feeding Device into Jejunum, Percutaneous Endoscopic Approach (ICD-10-PCS; 2016-07-21)
DX: J69.0 Pneumonitis due to inhalation of food and vomit (principal); J96.21 Acute and chronic respiratory failure with hypoxia; L89.153 Pressure ulcer of sacral region, stage 3; R78.81 Bacteremia; E87.0 Hyperosmolality and hypernatremia; K94.23 Gastrostomy malfunction; K31.6 Fistula of stomach and duodenum; K91.71 Accidental puncture and laceration of a digestive system organ or structure during a digestive system procedure; F79 Unspecified intellectual disabilities; B95.62 Methicillin resistant Staphylococcus aureus infection as the cause of diseases classified elsewhere; R22.1 Localized swelling, mass and lump, neck; R13.10 Dysphagia, unspecified; Z66 Do not resuscitate; E86.0 Dehydration; E78.5 Hyperlipidemia, unspecified; N40.0 Benign prostatic hyperplasia without lower urinary tract symptoms; D64.9 Anemia, unspecified; E11.9 Type 2 diabetes mellitus without complications; E78.00 Pure hypercholesterolemia, unspecified; G20 Parkinson's disease; G47.33 Obstructive sleep apnea (adult) (pediatric); Q90.9 Down syndrome, unspecified; Z88.8 Allergy status to other drugs, medicaments and biological substances; Z79.51 Long term (current) use of inhaled steroids; Z79.899 Other long term (current) drug therapy; Y73.1 Therapeutic (nonsurgical) and rehabilitative gastroenterology and urology devices associated with adverse incidents

== ENCOUNTER → 2016-08-05 | Outpatient (REF) | payer MEDICARE, MEDICAID | LOC: M LAB REF 16:59 | PROVIDERS: ATTEND Physician Assistant | DX: L03.311 Cellulitis of abdominal wall (principal) ==

== ENCOUNTER → 2016-08-15 | Outpatient (CLI) | payer MEDICARE, MEDICAID | END | disposition home or self-care (01) | LOC: M IRPRO 13:59 | DX: J69.0 Pneumonitis due to inhalation of food and vomit (principal) ==

== ENCOUNTER 2016-09-12 16:16 | Emergency (ER) | payer MEDICARE, MEDICAID ==
[~2016-09-12] VITALS: Ht 154.9 cm; Wt 68.0 kg
[2016-09-12 23:20] VITALS: BP 131/61
== END 2016-09-12 23:21 | disposition home or self-care (01) ==
LOC: M ED 18:23
DX: Z43.1 Encounter for attention to gastrostomy (principal)

== ENCOUNTER → 2016-09-13 | Outpatient (CLI) | payer MEDICARE, MEDICAID ==
[~2016-09-13] MED LIST changes: +ISOVUE-300 61% 50ML VIAL (Q9967) As Ordered ONE; +SODIUM BICARBONATE 8.4% INJ 50MEQ 50 ML VIAL As Ordered ONE
--- NOTE | 2016-09-13 17:19 | REPKIM ---
CLINICAL HISTORY: Patient with a history of Down syndrome and other medical comorbidities has a Kimo-[place] gastrojejunostomy tube because of inability to tolerate oral intake needing enteral support. The existing GJ feeding tube was pulled out inadvertently. Patient presents for a feeding tube replacement. Patient with a history of gastro-colonic fistula, the pre-existing colostomy tube was removed approximately 2-3 weeks ago without problems. Per [facility] staff, the patient has been tolerating Kimo-Lim[place] gastric port feeding without problems. PROCEDURE PERFORMED: Gastrostomy feeding tube replacement INTERVENTIONALIST: Mervin Davis MD CONSENT: The risks, benefits and alternatives to the procedure were explained to Mr Urban Osborne, who is the legal guardian, and informed phone consent was obtained and witnessed. MEDICATIONS: Local Lidocaine CONTRAST: 20 mL Isovue 300 EBL: 2 mL DEVICE USED: 14F RYAN Gastrostomy tube Lot#[id number] FLUORO TIME: 1.8 minutes PROCEDURE/FINDINGS: The patient was brought to the interventional radiology suite where a timeout procedure was performed. The patient was placed in the supine position. The abdomen was prepped and draped in the usual sterile fashion. The skin exit site of the gastrocutaneous tract was cannulated with a 5-Greenlandic catheter. Contrast was injected showing a persistent patent tract to the stomach. The tract was successfully traversed with a guidewire and the catheter was advanced into the stomach. Contrast was injected through the catheter to confirm that it was within the stomach. This showed no evidence of gastro-colonic fistula or leak. Then a 14-Greenlandic RYAN gastrostomy feeding tube was advanced over the guidewire. The retention balloon was inflated in the gastric lumen with 8mL of dilute saline and retention disc was snugly secured to the abdominal wall using 2-0 sutures. Contrast was injected into the gastric feeding tube to confirm satisfactory course and position. Post procedure radiograph shows the tip of the tube in the stomach. The patient tolerated the procedure well with no immediate complications. This procedure was performed using fluoroscopy. Dr. Davis was present. IMPRESSION: Successful gastrostomy tube replacement as discussed above. Contrast injection shows no evidence of leak or gatro-colonic fistula. Plan: Flush the gastric port of the catheter with 20 mL of water Q8H and before /after each use. Keep head of bed elevated for feeding. Please check residual before each feeding to prevent aspiration. cc: MD Tirso Candelaria, DO MTDD
== END | disposition home or self-care (01) ==
LOC: M IRPRO 12:52
DX: Z43.1 Encounter for attention to gastrostomy (principal); R62.7 Adult failure to thrive
CPT/HCPCS: 49450; C1729; C1769; C1887; Q9967

== ENCOUNTER → 2016-09-14 | Outpatient (CLI) | payer MEDICARE, MEDICAID ==
[~2016-09-14] MED LIST changes: +LIDOCAINE 2% MDV 20 ML VIAL As Ordered ONE; -SODIUM BICARBONATE 8.4% INJ 50MEQ 50 ML VIAL As Ordered ONE
--- NOTE | 2016-09-14 16:06 | REPKIM ---
CLINICAL HISTORY: Patient with a history of Down syndrome and other medical comorbidities has a 14F RYAN gastrostomy tube. Patient presents with clogged gastric port. PROCEDURE PERFORMED: Gastrostomy feeding tube check INTERVENTIONALIST: Mervin Davis MD CONSENT: The risks, benefits and alternatives to the procedure were explained to Mr Urban Osborne, who is the legal guardian, and informed phone consent was obtained and witnessed. CONTRAST: 15 mL Isovue 300 FLUORO TIME: 0.2 minutes PROCEDURE/FINDINGS: The patient was brought to the interventional radiology suite where a timeout procedure was performed. The patient was placed in the supine position. The abdomen was prepped and draped in the usual sterile fashion. The gastric port was flushed with saline. This opened the clogged port. Contrast was injected through the catheter to confirm that it was within the stomach. This showed no evidence of leak. The patient tolerated the procedure well with no immediate complications. This procedure was performed using fluoroscopy. Dr. Davis was present. IMPRESSION: The existing gastric feeding tube to confirm satisfactory course and position. The gastric port flushes freely. Contrast injection shows no evidence of leak. Plan: The gastrostomy tube is ready for use. Flush the gastric port of the catheter with 30 mL of water Q8H and before/after each use or meds. Keep head of bed elevated for feeding. cc: MD Tirso Candelaria DO MTDD
== END | disposition home or self-care (01) ==
LOC: M IRPRO 14:02
DX: K94.29 Other complications of gastrostomy (principal)
CPT/HCPCS: 49465; C1769; Q9967

== ENCOUNTER 2016-10-06 14:47 | Inpatient (IN) | payer MEDICARE, MEDICAID ==
[~2016-10-06] VITALS: Ht 154.9 cm; Wt 56.1 kg
[~2016-10-06 14:47] MED LIST changes: +ATOR40TA GT; -ATOR40TA PO; -ISOVUE-300 61% 50ML VIAL (Q9967) As Ordered ONE; -LIDOCAINE 2% MDV 20 ML VIAL As Ordered ONE; +PAXI20TA3 GT; -PAXI20TA3 PO; +SINE25TA5 GT; -SINE25TA5 PO; +ZYPR5TAB2 GT; -ZYPR5TAB2 PO
[2016-10-06] MEDS ORDERED: atrovent NEB (15:01)
[2016-10-06 15:20] LABS: INR 1.13
[2016-10-06 15:26] LABS: MEAN CORPUSCULAR HEMOGLOBIN 31.5 pg (27.0-33.0); MEAN CORPUSCULAR HGB CONC 33.5 g/dl (32.0-36.5); MEAN CORPUSCULAR VOLUME 94.1 fl (80.0-96.0); PLATELET COUNT, AUTOMATED 135 k/mm3 (150-450); RED CELL DISTRIBUTION WIDTH 16.3 % (11.5-14.5); WHITE BLOOD COUNT 9.7 K/mm3 (4.0-10.0)
[2016-10-06] MEDS ORDERED: IBUPROFEN 100 MG/5 ML SUSP UDC DYE FREE PO ONE (15:30)
[2016-10-06] MEDS ORDERED: NS 500 ML IV ONE (15:30)
[2016-10-06 15:40] LABS: ANISOCYTOSIS 2+; BANDS 3 % (< 11)
[2016-10-06 15:41] LABS: ALBUMIN 3.4 GM/DL (3.2-5.2); ALBUMIN/GLOBULIN RATIO 0.74 (1.00-1.93); ALKALINE PHOSPHATASE 71 U/L (45-117); ALT/SGPT 21 U/L (12-78); ANION GAP 9 MEQ/L (8-16); AST/SGOT 22 U/L (15-37); BILIRUBIN,DIRECT 0.3 MG/DL (0.0-0.2); BILIRUBIN,TOTAL 0.8 MG/DL (0.2-1.0); BLOOD UREA NITROGEN 24 MG/DL (7-18); CALCIUM LEVEL 8.5 MG/DL (8.8-10.2); CARBON DIOXIDE LEVEL 26 MEQ/L (21-32); CHLORIDE LEVEL 97 MEQ/L (98-107); GLOMERULAR FILTRATION RATE > 60.0 (>49); GLUCOSE, FASTING 218 MG/DL (80-110); POTASSIUM SERUM 4.7 MEQ/L (3.5-5.1); SODIUM LEVEL 132 MEQ/L (136-145)
--- NOTE | 2016-10-06 16:00 | REP ---
Chest two views HISTORY: Fever Comparison: 07/09/2016 Increased density is present in the left lower lobe consistent with an infiltrate. The right lung is clear. The cardiac silhouette is enlarged. The pulmonary vasculature is normal in appearance. The bony structure is intact. IMPRESSION: 1. Left lower lobe infiltrate. 2. Cardiomegaly. Signed by Adam Hicks MD 10/06/2016 03:52 P
[2016-10-06] MEDS ORDERED: VANCOMYCIN HCL 1,000 MG, VIAL MATE ADAPTER 1 EACH in D5W 250 ML IV ONE (16:15)
[2016-10-06] MEDS ORDERED: PIPERACILLIN/TAZOBACTAM SOD 3.375 GM in D5W MINI-BAG PLUS 50 ML IV ONE (16:15)
[2016-10-06] MEDS ORDERED: NS 1,000 ML IV ONE ×2 (16:30→17:45)
[2016-10-06] MEDS ORDERED: NS 1,000 ML IV SCH (16:32)
[2016-10-06] MEDS ORDERED: GLUCOSE 4 GM CHEW TABLET PO PRN (16:45)
[2016-10-06] MEDS ORDERED: GLUCAGON FOR INJ 1 MG VIAL (J1610) SC PRN (16:45)
[2016-10-06] MEDS ORDERED: DEXTROSE 50% 50 ML SYRINGE IV PRN (16:45)
--- NOTE | 2016-10-06 16:45 | HPEPDOC ---
General Date of Admission Chief Complaint The patient is a 61-year-old male Presented to the ER from [facility] because of a fever of 102.8 measured and coughing. History of Present Illness Patient is a 61 year old male with a PMHx of Down's Syndrome, Asthma, BPH, NIDDM, DLP, Parkinson's, Abdominal hernia, Sleep apnea on oxygen at night ( 2 liters) and history of recurrent aspiration pneumonia who presented to the ER with a fever of 102.8F. Patient was recently admitted from 07/07/2016 to 07/27/2016 for aspiration pneumonia and MRSA bacteremia. During that hospital course he had a dysfunction of his PEG tube and was replaced. Patient is non-verbal at baseline, history was acquired from prior records and nursing staff from [facility]. They noted that the patient had a fever today and provided Tylenol. Also noticed that he has been coughing today. They denied any shortness of breath or vomiting. Denied any respiratory distress. As per the staff, they noted that he did not have any urinary symptoms or complaints. They did not that he may have had some decrease in ambulation recently. Unable to acquire other review of systems as patient is non-verbal. Home Medications Scheduled Albuterol Sulfate (Albuterol Sulfate) 2.5 Mg/3 Ml Nebu, 2.5 MG INH QID, ( Reported) 0600,1200,1600,1900 Atorvastatin Calcium (Atorvastatin Calcium) 40 Mg Tab, 40 MG PO QHS, (Reported) Carbidopa/Levodopa (Sinemet 25-100 mg) 1 Tab Tab, 1 TAB PO TID, (Reported) 0600,1200,1900 Olanzapine (Zyprexa) 5 Mg Tab, 5 MG PO QHS, (Reported) Paroxetine Hydrochloride (Paxil) 20 Mg Tab, 20 MG PO DAILY, (Reported) Scheduled PRN Docusate Sod/Senna (Senna S 8.6-50 mg) 1 Tab Tab, 1 TAB PO QHS PRN for CONSTIPATION, (Reported) ON DAY 3 OF NO BM Polyethylene Glycol (Miralax) 1 Pow Pow, 17 GM PO DAILY PRN for CONSTIPATION, ( Reported) Allergies Coded Allergies: Metformin (Verified Adverse Reaction, Mild, DIARHEA, 09/13/12) Past Medical History Medical History Down's Syndrome, Asthma, BPH, NIDDM, DLP, Parkinson's, Abdominal hernia, History of recurrent aspiration pneumonia, sleep apnea on oxygen at night (2 liters) Surgical History PEG tube placement 07/2016 Family History - Sister with history of multiple CVAs; lives at [facility], [place] Social History - Denies the use of alcohol, tobacco or illicit drugs - Denies recent travel or sick contacts - Lives at [facility] - Occupation: Disability Review of Symptoms Other systems Unable to be obtained Vital Signs - Vitals: BP 113/56, HR 129, RR 18, Sat 89%RA, Temp 100.5F - General: Lying in bed, No acute distress, Non-verbal, Alert and awake - HEENT: NC, AT, Pupils reactive - CVS: Tachycardic, regular rhythm, +S1S2, - Lungs: Poor inspiratory effort, unable to appreciate wheezing / rales / rhonchi - Abdomen: Soft, Non-distended, Non-tender, + Bowel sounds x 4, + PEG tube - Extremities: + PPx4, No lower extremity edema, No calf tenderness - Neuro: Moving all four extremities - Skin: No visible rashes Laboratory Data Labs 24H Laboratory Tests 2 10/06/16 14:54: Bedside Glucose (Misc Panel) 211H 10/06/16 15:03: Neutrophils 86H, Band Neutrophils 3, Lymphocytes (Manual) 6L, Monocytes (Manual ) 4, Myelocytes 1H, Platelet Estimate DECREASED, Anisocytosis 2+, Macrocytosis 1 +, Prothrombin Time 14.6H, Prothromb Time International Ratio 1.13, Activated Partial Thromboplast Time 24.8L, Anion Gap 9, Glomerular Filtration Rate > 60.0 , Calcium Level 8.5L, Aspartate Amino Transf (AST/SGOT) 22, Alanine Aminotransferase (ALT/SGPT) 21, Alkaline Phosphatase 71, Total Bilirubin 0.8, Direct Bilirubin 0.3H, Total Creatine Kinase 73, Creatine Kinase MB 2.1, Creatine Kinase MB Relative Index 2.87, Troponin I 0.04, Total Protein 8.0, Albumin 3.4, Albumin/Globulin Ratio 0.74L 10/06/16 15:04: Lactic Acid Level 2.0 10/06/16 15:23: Urine Appearance CLEAR, Urine Color YELLOW, Urine pH 8.0, Urine Specific [place] 1.008, Urine Protein NEGATIVE, Urine Glucose (UA) NEGATIVE, Urine Ketones NEGATIVE, Urine Urobilinogen 0.2, Urine Bilirubin NEGATIVE, Urine Leukocyte Esterase NEGATIVE, Urine Blood NEGATIVE, Urine Nitrite NEGATIVE, Urine WBC (Auto) 2, Urine RBC (Auto) 8H, Urine Hyaline Casts (Auto) 0, Urine Bacteria (Auto) 1+H, Urine Squamous Epithelial Cells 0, Urine Sperm (Auto) CBC/BMP Laboratory Tests 10/06/16 15:03 Red Blood Count 4.18 L, Mean Corpuscular Volume 94.1, Mean Corpuscular Hemoglobin 31.5, Mean Corpuscular Hemoglobin Concent 33.5, Red Cell Distribution Width 16.3 H Microbiology Microbiology 10/06/16 Blood Culture, Received Pending 10/06/16 Blood Culture, Received Pending 10/06/16 Influenza Virus Type A Antigen - Final, Complete 10/06/16 Influenza Virus Type B Antigen - Final, Complete 10/06/16 Urine Culture, Received Pending Plan / VTE VTE Prophylaxis Ordered?: Yes Plan Plan Fever and cough likely 2/2 aspiration pneumonia - Presented with fever and cough - History of recurrent aspiration pneumonia - Physical unrevealing - Labs appear to be hemoconcentrated; no elevation in lactic acid - UA negative for signs of infection - CXR 10/06: left lower lobe infiltrate and cardiomegaly - Will get blood cultures, sputum cultures and urine cultures - Keep NPO and aspiration precautions - Will c/w Zosyn and Vancomycin for broad spectrum coverage (Gram negative and anaerobes) Hyponatremia (mild) - appears hypovolemic; will give NS at this time - will check serum osmolality and repeat CMP in 6 hours Thrombocytopenia (chronic) - appears to be at baseline NIDDM2 - will start ISS Asthma - c/w inhaled therapy from home Down's Syndrome Depression - c/w paroxetine BPH - c/w tamsulosin DLP - c/w atorvastatin Parkinson's - c/w Carbidopa / Levodopa Abdominal hernia - No abdominal pain noted Sleep apnea on oxygen at night (2 liters) - c/w oxygen supplementation Constipation - c/w bowel regimen DVT prophylaxis - Will start SCDs ISIAH MAGDALENO MD Oct 06, 2016 16:45
[2016-10-06] MEDS ORDERED: IPRA2IN INH (16:52)
[2016-10-06] MEDS ORDERED: PROMLIQ9 GT (16:55)
[2016-10-06] MEDS ORDERED: SILV1CRE19 TOP (16:58)
[2016-10-06] MEDS ORDERED: SENN8.6T7 PO (16:58)
[2016-10-06] MEDS ORDERED: DESI13CR2 TOP (16:58)
[2016-10-06] MEDS ORDERED: BISA10SU27 PR (16:58)
[2016-10-06] MEDS ORDERED: FLOM5CAP PO (17:04)
--- NOTE | 2016-10-06 17:15 | REP ---
ABDOMEN: Two views of the abdomen are performed. No gross free air is seen. Evaluation for free air is limited on the supine images but an upright view of the chest performed approximately 1 hour earlier does not show evidence of free air under the diaphragms. I see no evidence of small bowel obstruction. Feeding tube is seen with the tip overlying the stomach. There are degenerative changes of the spine. Signed by Tirso Pickering MD 10/09/2016 05:39 P
[2016-10-06] MEDS: HumaLOG INSULIN (NovoLOG) PER UNIT SC SCH ×2 (17:30→20:12)
--- NOTE | 2016-10-06 17:33 | PHACANCOPD ---
PHARMACY VANCOMYCIN DOSING Pt Demographics Demographics Patient Age:61 , Weight: 56 kg , Gender: male Adjusted Body Weight Date: 10/06/16, Adjusted Body Weight: [NA] Kg Events Past 24 Hours Events Past 24 Hours: YES: Fever, NO: Dialysis, Diuretic Therapy, Change in CrCl, Elevation in WBC, Pending Diagnostics, Pending Procedures, Other Vancomycin Vancomycin indication: aspiration pneumonia/hx of MRSA Vancomycin Target Ranges: 15-20 mcg/ml Vancomycin Load Y/N: Yes Load Dose Date Time Vancomycin Load Dose: 1000mg Date: 10/06 Time: ~18:00 - in ER Vancomycin Dose Date: 10/06/16. Current Vancomycin Dose: [750mg IV q12h @21] Intermittent Dosing?: No Labs Labs Item Value Date Time White Blood Count 9.7 K/mm3 10/06/16 1503 Creatinine 0.90 MG/DL 10/06/16 1503 Vital Signs Label Value Date Time Patient Temperature 100.5 degrees F 10/06/16 1505 Temperature Source Temporal 10/06/16 1505 Micro Microbiology 10/06/16 Blood Culture, Received Pending 10/06/16 Blood Culture, Received Pending 10/06/16 Influenza Virus Type A Antigen - Final, Complete 10/06/16 Influenza Virus Type B Antigen - Final, Complete 10/06/16 Urine Culture, Received Pending Creatinine Clearance Date:10/06/16. Creatinine Clearance: [64 ml/min]. Pending Labs Vanco trough scheduled 10/08 @0800 Assessment and Plan Maintaining Current Dose?: Yes Reason for dose change: No Dose Change Pharmacist Note Pharmacist Note Date: 10/06/16. Pharmacist note: pt has been admitted for aspiration pneumonia, he was admitted back in July of this year with similar symptoms and had multiple body sources that grew MRSA (RYAN = 1). His SCr today is slightly higher than his baseline (~0.7 mg/dl), he had been maintained for ~14 days on vanco 1g q12h during his last admission before he had significant accumulation and was changed to 750mg q12h. Vanco 1g IV was ordered in the ER this evening and I have started 750mg q12h tonight. I have a trough scheduled before the 4th dose and will adjust dosing if necessary. Joni Barth Pharm.D. Oct 06, 2016 17:33
[2016-10-06] MEDS: VANCOMYCIN HCL 750 MG, VIAL MATE ADAPTER 1 EACH in D5W 250 ML IV SCH (20:12)
[2016-10-06 21:15] VITALS: BP 93/50
[2016-10-06 21:22] LABS: ALBUMIN 2.7 GM/DL (3.2-5.2); ALBUMIN/GLOBULIN RATIO 0.77 (1.00-1.93); ALKALINE PHOSPHATASE 49 U/L (45-117); ALT/SGPT 19 U/L (12-78); ANION GAP 3 MEQ/L (8-16); AST/SGOT 20 U/L (15-37); BILIRUBIN,TOTAL 0.8 MG/DL (0.2-1.0); BLOOD UREA NITROGEN 21 MG/DL (7-18); CALCIUM LEVEL 7.4 MG/DL (8.8-10.2); CARBON DIOXIDE LEVEL 30 MEQ/L (21-32); CHLORIDE LEVEL 104 MEQ/L (98-107); CREATININE FOR GFR 0.91 MG/DL (0.70-1.30); GLOMERULAR FILTRATION RATE > 60.0 (>49); GLUCOSE, FASTING 146 MG/DL (80-110); POTASSIUM SERUM 4.5 MEQ/L (3.5-5.1); SODIUM LEVEL 137 MEQ/L (136-145); TOTAL PROTEIN 6.2 GM/DL (6.4-8.2)
[2016-10-06] MEDS: PIPERACILLIN/TAZOBACTAM SOD 3.375 GM in D5W MINI-BAG PLUS 50 ML IV SCH (23:54)
[2016-10-06 23:59] VITALS: BP 100/55
[2016-10-07 04:45] VITALS: BP 115/57
[2016-10-07 05:37] LABS: DIFF SLIDE NUMBER 73; MEAN CORPUSCULAR HEMOGLOBIN 31.5 pg (27.0-33.0); MEAN CORPUSCULAR HGB CONC 33.2 g/dl (32.0-36.5); RED CELL DISTRIBUTION WIDTH 16.4 % (11.5-14.5); WHITE BLOOD COUNT 11.8 K/mm3 (4.0-10.0)
[2016-10-07 05:51] LABS: ALBUMIN 2.5 GM/DL (3.2-5.2); ALBUMIN/GLOBULIN RATIO 0.69 (1.00-1.93); ALKALINE PHOSPHATASE 46 U/L (45-117); ALT/SGPT 19 U/L (12-78); ANION GAP 6 MEQ/L (8-16); AST/SGOT 14 U/L (15-37); BILIRUBIN,TOTAL 1.2 MG/DL (0.2-1.0); BLOOD UREA NITROGEN 20 MG/DL (7-18); CALCIUM LEVEL 7.6 MG/DL (8.8-10.2); CARBON DIOXIDE LEVEL 28 MEQ/L (21-32); CHLORIDE LEVEL 105 MEQ/L (98-107); CREATININE FOR GFR 0.84 MG/DL (0.70-1.30); GLOMERULAR FILTRATION RATE > 60.0 (>49); GLUCOSE, FASTING 124 MG/DL (80-110); MAGNESIUM LEVEL 2.2 MG/DL (1.8-2.4); POTASSIUM SERUM 4.1 MEQ/L (3.5-5.1); SODIUM LEVEL 139 MEQ/L (136-145); TOTAL PROTEIN 6.1 GM/DL (6.4-8.2)
[2016-10-07 06:47] LABS: PLATELET COUNT, AUTOMATED 89 k/mm3 (150-450)
[2016-10-07 06:49] LABS: ANISOCYTOSIS 1+
[2016-10-07] MEDS: HumaLOG INSULIN (NovoLOG) PER UNIT SC SCH ×4 (07:30→21:00)
[2016-10-07 08:00] VITALS: BP 128/63
[2016-10-07] MEDS: PIPERACILLIN/TAZOBACTAM SOD 3.375 GM in D5W MINI-BAG PLUS 50 ML IV SCH ×3 (08:22→23:12)
[2016-10-07] MEDS: VANCOMYCIN HCL 750 MG, VIAL MATE ADAPTER 1 EACH in D5W 250 ML IV SCH ×2 (09:07→21:50)
[2016-10-07 12:00] VITALS: BP 119/59
[2016-10-07 16:00] VITALS: BP 125/59
[2016-10-07 20:00] VITALS: BP 105/52
[2016-10-07] MEDS: ACETAMINOPHEN 650 MG SUPP PR PRN (21:51)
[2016-10-07] MEDS: OLANZapine 5 MG TAB GT SCH (23:15)
[2016-10-07 23:59] VITALS: BP 99/52
[2016-10-08] MEDS ORDERED: SLF 3 ML SYR IV PRN (04:15)
[2016-10-08 04:45] VITALS: BP_SYST 113; BP_SYST 123; BP_DIAS 59; BP_DIAS 68
[2016-10-08 05:48] LABS: BASO % 0.3 % (0.0-1.0); EOS % 0.4 % (0.0-3.0); LARGE UNSTAINED CELL # 0.1 K/mm3 (0.0-0.4); LARGE UNSTAINED CELL % 0.8 % (0.0-4.0); LYMPH # 0.9 K/mm3 (1.5-4.5); LYMPH % 11.1 % (24.0-44.0); MEAN CORPUSCULAR HEMOGLOBIN 31.3 pg (27.0-33.0); MEAN CORPUSCULAR HGB CONC 32.6 g/dl (32.0-36.5); MEAN CORPUSCULAR VOLUME 95.8 fl (80.0-96.0); MONO # 0.3 K/mm3 (0.0-0.8); MONO % 3.4 % (0.0-5.0); NEUTROPHILS % 84.1 % (36.0-66.0); RED CELL DISTRIBUTION WIDTH 16.4 % (11.5-14.5); WHITE BLOOD COUNT 8.4 K/mm3 (4.0-10.0)
[2016-10-08 05:49] LABS: ALBUMIN 2.5 GM/DL (3.2-5.2); ALBUMIN/GLOBULIN RATIO 0.61 (1.00-1.93); ALKALINE PHOSPHATASE 47 U/L (45-117); ALT/SGPT 16 U/L (12-78); ANION GAP 6 MEQ/L (8-16); AST/SGOT 14 U/L (15-37); BILIRUBIN,TOTAL 0.9 MG/DL (0.2-1.0); BLOOD UREA NITROGEN 13 MG/DL (7-18); CALCIUM LEVEL 7.8 MG/DL (8.8-10.2); CARBON DIOXIDE LEVEL 28 MEQ/L (21-32); CHLORIDE LEVEL 103 MEQ/L (98-107); CREATININE FOR GFR 0.66 MG/DL (0.70-1.30); GLOMERULAR FILTRATION RATE > 60.0 (>49); GLUCOSE, FASTING 106 MG/DL (80-110); MAGNESIUM LEVEL 2.1 MG/DL (1.8-2.4); POTASSIUM SERUM 3.6 MEQ/L (3.5-5.1); SODIUM LEVEL 137 MEQ/L (136-145); TOTAL PROTEIN 6.6 GM/DL (6.4-8.2)
[2016-10-08 05:50] LABS: PLATELET COUNT, AUTOMATED 97 k/mm3 (150-450)
[2016-10-08] MEDS: SLF 3 ML SYR IV SCH ×3 (06:44→22:00)
[2016-10-08] MEDS: HumaLOG INSULIN (NovoLOG) PER UNIT SC SCH ×4 (07:30→21:00)
[2016-10-08 08:00] VITALS: BP 120/59
[2016-10-08] MEDS: PIPERACILLIN/TAZOBACTAM SOD 3.375 GM in D5W MINI-BAG PLUS 50 ML IV SCH ×3 (08:45→23:36)
--- NOTE | 2016-10-08 09:51 | PHACANCOPD ---
PHARMACY VANCOMYCIN DOSING Pt Demographics Demographics Patient Age:61 , Weight:56.500 , Gender: male Adjusted Body Weight Date: 10/06/16, Adjusted Body Weight: [NA] Kg Events Past 24 Hours Events Past 24 Hours: YES: Change in CrCl Vancomycin Vancomycin indication: aspiration pneumonia/hx of MRSA Vancomycin Target Ranges: 15-20 mcg/ml Vancomycin Load Y/N: Yes Load Dose Date Time Vancomycin Load Dose: 1000mg Date: 10/06 Time: ~18:00 - in ER Vancomycin Dose Date: 10/08/16. Current Vancomycin Dose: [1g IV q12h @21] Date: 10/06/16. Current Vancomycin Dose: [750mg IV q12h @21] Intermittent Dosing?: No Labs Labs Item Value Date Time White Blood Count 9.7 K/mm3 10/06/16 1503 White Blood Count 11.8 K/mm3 H 10/07/16 0446 White Blood Count 8.4 K/mm3 10/08/16 0438 Creatinine 0.91 MG/DL 10/06/16 2050 Creatinine 0.84 MG/DL 10/07/16 0446 Creatinine 0.66 MG/DL L 10/08/16 0438 Vancomycin Level Trough 11.5 UG/ML 10/08/16 0841 Micro Microbiology 10/06/16 Blood Culture - Preliminary, Resulted No growth after 24 hours . All specim... 10/06/16 Blood Culture - Preliminary, Resulted No growth after 24 hours . All specim... 10/06/16 Influenza Virus Type A Antigen - Final, Complete 10/06/16 Influenza Virus Type B Antigen - Final, Complete 10/06/16 Urine Culture - Final, Complete Creatinine Clearance Date:10/08/16. Creatinine Clearance: [88 ml/min]. Date:10/06/16. Creatinine Clearance: [64 ml/min]. Pending Labs Vanco trough scheduled 10/11 @0800 Assessment and Plan Maintaining Current Dose?: No Reason for dose change: Trough too low Pharmacist Note Pharmacist Note Date: 10/08/16. Pharmacist note: vanco trough drawn ~20 min before the 4th dose came back at 11.5. I have changed his dosing to 1g q12h per previous consults. SCr has significantly improved since admission. We will obtain a trough around every 4 days to ensure he is not accumulating. Urine culture showed no growth, blood cultures are NGTD. We will continue to monitor. Date: 10/06/16. Pharmacist note: pt has been admitted for aspiration pneumonia, he was admitted back in July of this year with similar symptoms and had multiple body sources that grew MRSA (RYAN = 1). His SCr today is slightly higher than his baseline (~0.7 mg/dl), he had been maintained for ~14 days on vanco 1g q12h during his last admission before he had significant accumulation and was changed to 750mg q12h. Vanco 1g IV was ordered in the ER this evening and I have started 750mg q12h tonight. I have a trough scheduled before the 4th dose and will adjust dosing if necessary. Joni Barth Pharm.D. Oct 08, 2016 09:51
[2016-10-08] MEDS: VANCOMYCIN HCL 750 MG, VIAL MATE ADAPTER 1 EACH in D5W 250 ML IV SCH (10:24)
[2016-10-08 12:00] VITALS: BP 114/57
[2016-10-08 16:00] VITALS: BP 122/56
--- NOTE | 2016-10-08 18:29 | IPNPDOC ---
Subjective Date Seen The patient was seen on 10/08/16. Subjective Chief Complaint/HPI The patient is a 61-year-old male admitted with a reason for visit of Fever, Pneumonia. Events since last encounter pt seen and examined, no overnight events. Objective Physical Examination General Exam: Positive: Cooperative, No Acute Distress Eye Exam: Positive: PERRLA, Conjunctiva & lids normal, EOMI, Negative: Sclera icteric Chest Exam: Positive: Diminished Heart Exam: Positive: Rate Normal, Regular Rhythm, Normal S1, Normal S2, Negative: Murmurs, Rubs Abdomen Exam: Positive: Normal bowel sounds, Soft Extremity Exam: Positive: Normal pulses, Negative: Clubbing, Cyanosis, Edema Assessment /Plan Problems (1) Pneumonia Status: Acute Problem Text: * likely secondary to aspiration pneumonia * will continue antibiotics * will consult dr corral in am * will restart tube feeds smaller volume and check residuals (2) Acute respiratory failure with hypoxia Status: Acute Response to Treatment: Improving Problem Text: * currently on room air * initially required oxygen (3) Leukocytosis Status: Resolved (4) DM2 (diabetes mellitus, type 2) Status: Chronic (5) Down's syndrome Status: Chronic Plan/VTE VTE Prophylaxis Ordered?: Yes VS, I&O, 24H, Fishbone Vital Signs/I&O Vital Signs Date Time Temp Pulse Resp B/P (MAP) Pulse Ox O2 Delivery O2 Flow Rate FiO2 10/08/16 16:00 99.6 101 18 122/56 (78) 93 Room Air 10/08/16 08:49 4.0 I&O- Last 24 Hours up to 6 AM 10/08/16 06:00 Intake Total 410 ml Output Total 0 ml Balance 410 ml Laboratory Data 24H LABS Laboratory Tests 2 10/07/16 21:47: Bedside Glucose (Misc Panel) 102 10/08/16 04:38: White Blood Count 8.4, Red Blood Count 3.47L, Hemoglobin 10.9L, Hematocrit 33.2L , Mean Corpuscular Volume 95.8, Mean Corpuscular Hemoglobin 31.3, Mean Corpuscular Hemoglobin Concent 32.6, Red Cell Distribution Width 16.4H, Platelet Count 97L, Neutrophils (%) (Auto) 84.1H, Lymphocytes (%) (Auto) 11.1L, Monocytes (%) (Auto) 3.4, Eosinophils (%) (Auto) 0.4, Basophils (%) (Auto) 0.3, Neutrophils # (Auto) 7.0, Lymphocytes # (Auto) 0.9L, Monocytes # (Auto) 0.3, Eosinophils # (Auto) 0.0, Basophils # (Auto) 0.0, Large Unclassified Cells % 0.8 , Large Unclassified Cells # 0.1, Anion Gap 6L, Glomerular Filtration Rate > 60.0, Blood Urea Nitrogen 13, Creatinine 0.66L, Sodium Level 137, Potassium Level 3.6, Chloride Level 103, Carbon Dioxide Level 28, Calcium Level 7.8L, Aspartate Amino Transf (AST/SGOT) 14L, Alanine Aminotransferase (ALT/SGPT) 16, Alkaline Phosphatase 47, Total Bilirubin 0.9, Total Protein 6.6, Albumin 2.5L, Magnesium Level 2.1, Albumin/Globulin Ratio 0.61L 10/08/16 08:41: Vancomycin Level Trough 11.5 10/08/16 11:53: Bedside Glucose (Misc Panel) 167H CBC/BMP Laboratory Tests 10/08/16 04:38 Red Blood Count 3.47 L, Mean Corpuscular Volume 95.8, Mean Corpuscular Hemoglobin 31.3, Mean Corpuscular Hemoglobin Concent 32.6, Red Cell Distribution Width 16.4 H, Neutrophils (%) (Auto) 84.1 H, Lymphocytes (%) (Auto ) 11.1 L, Monocytes (%) (Auto) 3.4, Eosinophils (%) (Auto) 0.4, Basophils (%) ( Auto) 0.3, Neutrophils # (Auto) 7.0, Lymphocytes # (Auto) 0.9 L, Monocytes # ( Auto) 0.3, Eosinophils # (Auto) 0.0, Basophils # (Auto) 0.0, Calcium Level 7.8 L , Aspartate Amino Transf (AST/SGOT) 14 L, Alanine Aminotransferase (ALT/SGPT) 16 , Alkaline Phosphatase 47, Total Bilirubin 0.9, Total Protein 6.6, Albumin 2.5 L Microbiology Microbiology 10/06/16 Blood Culture - Preliminary, Resulted No Growth after 48 hours. All Specime... 10/06/16 Blood Culture - Preliminary, Resulted No Growth after 48 hours. All Specime... 10/06/16 Influenza Virus Type A Antigen - Final, Complete 10/06/16 Influenza Virus Type B Antigen - Final, Complete 10/06/16 Urine Culture - Final, Complete YOVANNY REAVES DO Oct 08, 2016 18:29
[2016-10-08] MEDS: NS 1,000 ML IV SCH (18:48)
[2016-10-08] MEDS: VANCOMYCIN HCL 1,000 MG, VIAL MATE ADAPTER 1 EACH in D5W 250 ML IV SCH (20:34)
[2016-10-08] MEDS: OLANZapine 5 MG TAB GT SCH (20:35)
[2016-10-08 20:59] VITALS: BP 135/65
[2016-10-08 23:50] VITALS: BP 121/75
[2016-10-09 03:16] VITALS: BP 140/63
[2016-10-09] MEDS: SLF 3 ML SYR IV SCH ×3 (05:04→21:09)
[2016-10-09 05:29] LABS: BASO % 0.4 % (0.0-1.0); EOS % 0.8 % (0.0-3.0); LARGE UNSTAINED CELL # 0.1 K/mm3 (0.0-0.4); LARGE UNSTAINED CELL % 1.5 % (0.0-4.0); LYMPH # 0.9 K/mm3 (1.5-4.5); LYMPH % 20.4 % (24.0-44.0); MEAN CORPUSCULAR HEMOGLOBIN 29.8 pg (27.0-33.0); MEAN CORPUSCULAR VOLUME 93.1 fl (80.0-96.0); MONO # 0.2 K/mm3 (0.0-0.8); MONO % 3.9 % (0.0-5.0); NEUTROPHILS # 3.1 K/mm3 (1.8-7.7); WHITE BLOOD COUNT 4.2 K/mm3 (4.0-10.0)
[2016-10-09 05:30] LABS: ALBUMIN 2.3 GM/DL (3.2-5.2); ALBUMIN/GLOBULIN RATIO 0.56 (1.00-1.93); ALKALINE PHOSPHATASE 44 U/L (45-117); ALT/SGPT 15 U/L (12-78); ANION GAP 6 MEQ/L (8-16); AST/SGOT 11 U/L (15-37); BILIRUBIN,TOTAL 0.7 MG/DL (0.2-1.0); BLOOD UREA NITROGEN 12 MG/DL (7-18); CALCIUM LEVEL 7.8 MG/DL (8.8-10.2); CARBON DIOXIDE LEVEL 29 MEQ/L (21-32); CHLORIDE LEVEL 105 MEQ/L (98-107); CREATININE FOR GFR 0.58 MG/DL (0.70-1.30); GLOMERULAR FILTRATION RATE > 60.0 (>49); GLUCOSE, FASTING 132 MG/DL (80-110); MAGNESIUM LEVEL 2.2 MG/DL (1.8-2.4); POTASSIUM SERUM 3.3 MEQ/L (3.5-5.1); SODIUM LEVEL 140 MEQ/L (136-145); TOTAL PROTEIN 6.4 GM/DL (6.4-8.2)
[2016-10-09 05:31] LABS: PLATELET COUNT, AUTOMATED 99 k/mm3 (150-450)
--- NOTE | 2016-10-09 05:43 | ECGEPIP ---
Stationary ECG Study [facility] - ED Test Date: 2016-10-06 Pat Name: BRAI SERVIN Department: Room: - Gender: M [employer] Operator: SAI : [id number] Requested By: PRASHANT Solis Order Number: [id number] Reading MD: Blake Mauricio Measurements Intervals [place] Rate: 129 P: -25 [place]: 152 QRS: 3 QRSD: 133 T: 148 QT: 311 QTc: 456 Interpretive Statements SINUS TACHYCARDIA LEFT BUNDLE BRANCH BLOCK RATE INCREASED BUT OTHERWISE SIMILAR TO 07/09/16 Electronically Signed On 10-09-2016 5:43:28 EDT by Blake Mauricio
[2016-10-09] MEDS ORDERED: POTASSIUM CHLORIDE 10% LIQ 20 MEQ/15 ML UDC PO ONE (07:00)
[2016-10-09 07:20] VITALS: BP 118/58
[2016-10-09] MEDS: HumaLOG INSULIN (NovoLOG) PER UNIT SC SCH ×4 (07:30→21:00)
[2016-10-09] MEDS: VANCOMYCIN HCL 1,000 MG, VIAL MATE ADAPTER 1 EACH in D5W 250 ML IV SCH ×2 (08:56→21:09)
[2016-10-09] MEDS: PIPERACILLIN/TAZOBACTAM SOD 3.375 GM in D5W MINI-BAG PLUS 50 ML IV SCH ×2 (08:56→15:02)
[2016-10-09] MEDS: NS 1,000 ML IV SCH (11:40)
[2016-10-09 12:00] VITALS: BP 119/64
[2016-10-09 16:00] VITALS: BP 118/60
[2016-10-09 20:00] VITALS: BP 121/60
--- NOTE | 2016-10-09 20:03 | IPNPDOC ---
Subjective Date Seen The patient was seen on 10/09/16. Subjective Chief Complaint/HPI The patient is a 61-year-old male admitted with a reason for visit of Fever, Pneumonia. Events since last encounter pt seen and examined, required oxygen back on yesterday Objective Physical Examination General Exam: Positive: Cooperative, No Acute Distress Eye Exam: Positive: PERRLA, Conjunctiva & lids normal, EOMI Chest Exam: Positive: Diminished Heart Exam: Positive: Rate Normal, Regular Rhythm, Normal S1, Normal S2 Abdomen Exam: Positive: Normal bowel sounds, Soft Extremity Exam: Positive: Normal pulses Assessment /Plan Problems (1) Pneumonia Status: Acute Problem Text: * likely secondary to aspiration pneumonia * will continue antibiotics vanco and zosyn * dr Davis was consulted for J-G tube will be done on sunday or , * will restart tube feeds smaller volume and check residuals (2) Acute respiratory failure with hypoxia Status: Acute Response to Treatment: Improving Problem Text: * pt was restarted on oxygen again (3) Leukocytosis Status: Resolved (4) DM2 (diabetes mellitus, type 2) Status: Chronic (5) Down's syndrome Status: Chronic Plan/VTE VTE Prophylaxis Ordered?: Yes VS, I&O, 24H, Fishbone Vital Signs/I&O Vital Signs Date Time Temp Pulse Resp B/P (MAP) Pulse Ox O2 Delivery O2 Flow Rate FiO2 10/09/16 16:00 96.6 66 20 118/60 (79) 98 Nasal Cannula 2.0 I&O- Last 24 Hours up to 6 AM 10/09/16 05:59 Intake Total 1170 ml Output Total 0 ml Balance 1170 ml Laboratory Data 24H LABS Laboratory Tests 2 10/09/16 04:42: White Blood Count 4.2, Red Blood Count 3.38L, Hemoglobin 10.1L, Hematocrit 31.5L , Mean Corpuscular Volume 93.1, Mean Corpuscular Hemoglobin 29.8, Mean Corpuscular Hemoglobin Concent 32.0, Red Cell Distribution Width 16.0H, Platelet Count 99L, Neutrophils (%) (Auto) 73.0H, Lymphocytes (%) (Auto) 20.4L, Monocytes (%) (Auto) 3.9, Eosinophils (%) (Auto) 0.8, Basophils (%) (Auto) 0.4, Neutrophils # (Auto) 3.1, Lymphocytes # (Auto) 0.9L, Monocytes # (Auto) 0.2, Eosinophils # (Auto) 0.0, Basophils # (Auto) 0.0, Large Unclassified Cells % 1.5 , Large Unclassified Cells # 0.1, Anion Gap 6L, Glomerular Filtration Rate > 60.0, Blood Urea Nitrogen 12, Creatinine 0.58L, Sodium Level 140, Potassium Level 3.3L, Chloride Level 105, Carbon Dioxide Level 29, Calcium Level 7.8L, Aspartate Amino Transf (AST/SGOT) 11L, Alanine Aminotransferase (ALT/SGPT) 15, Alkaline Phosphatase 44L, Total Bilirubin 0.7, Total Protein 6.4, Albumin 2.3L, Magnesium Level 2.2, Albumin/Globulin Ratio 0.56L 10/09/16 11:34: Bedside Glucose (Misc Panel) 199H 10/09/16 17:13: Bedside Glucose (Misc Panel) 123H CBC/BMP Laboratory Tests 10/09/16 04:42 Red Blood Count 3.38 L, Mean Corpuscular Volume 93.1, Mean Corpuscular Hemoglobin 29.8, Mean Corpuscular Hemoglobin Concent 32.0, Red Cell Distribution Width 16.0 H, Neutrophils (%) (Auto) 73.0 H, Lymphocytes (%) (Auto ) 20.4 L, Monocytes (%) (Auto) 3.9, Eosinophils (%) (Auto) 0.8, Basophils (%) ( Auto) 0.4, Neutrophils # (Auto) 3.1, Lymphocytes # (Auto) 0.9 L, Monocytes # ( Auto) 0.2, Eosinophils # (Auto) 0.0, Basophils # (Auto) 0.0, Calcium Level 7.8 L , Aspartate Amino Transf (AST/SGOT) 11 L, Alanine Aminotransferase (ALT/SGPT) 15 , Alkaline Phosphatase 44 L, Total Bilirubin 0.7, Total Protein 6.4, Albumin 2.3 L Microbiology Microbiology 10/06/16 Blood Culture - Preliminary, Resulted No Growth after 72 hours. All specime... 10/06/16 Blood Culture - Preliminary, Resulted No Growth after 72 hours. All specime... 10/06/16 Influenza Virus Type A Antigen - Final, Complete 10/06/16 Influenza Virus Type B Antigen - Final, Complete 10/06/16 Urine Culture - Final, Complete YOVANNY REAVES DO October 09, 2016 20:03
[2016-10-09] MEDS: OLANZapine 5 MG TAB GT SCH (21:08)
[2016-10-09 22:00] VITALS: BP 142/63
[2016-10-10] MEDS: PIPERACILLIN/TAZOBACTAM SOD 3.375 GM in D5W MINI-BAG PLUS 50 ML IV SCH ×3 (01:14→16:44)
[2016-10-10 06:00] VITALS: BP 145/68
[2016-10-10] MEDS: SLF 3 ML SYR IV SCH ×3 (06:00→20:05)
[2016-10-10] MEDS: HumaLOG INSULIN (NovoLOG) PER UNIT SC SCH ×4 (07:30→20:20)
[2016-10-10 07:47] LABS: BASO % 0.6 % (0.0-1.0); EOS # 0.1 K/mm3 (0.0-0.50); EOS % 1.7 % (0.0-3.0); LARGE UNSTAINED CELL # 0.1 K/mm3 (0.0-0.4); LARGE UNSTAINED CELL % 2.2 % (0.0-4.0); LYMPH # 1.2 K/mm3 (1.5-4.5); LYMPH % 29.3 % (24.0-44.0); MEAN CORPUSCULAR HEMOGLOBIN 30.9 pg (27.0-33.0); MEAN CORPUSCULAR HGB CONC 32.6 g/dl (32.0-36.5); MEAN CORPUSCULAR VOLUME 94.9 fl (80.0-96.0); MONO # 0.2 K/mm3 (0.0-0.8); MONO % 5.6 % (0.0-5.0); NEUTROPHILS # 2.3 K/mm3 (1.8-7.7); NEUTROPHILS % 60.5 % (36.0-66.0); PLATELET COUNT, AUTOMATED 108 k/mm3 (150-450); WHITE BLOOD COUNT 3.8 K/mm3 (4.0-10.0)
[2016-10-10 08:27] LABS: ALBUMIN 2.4 GM/DL (3.2-5.2); ALBUMIN/GLOBULIN RATIO 0.65 (1.00-1.93); ALKALINE PHOSPHATASE 41 U/L (45-117); ALT/SGPT 17 U/L (12-78); ANION GAP 8 MEQ/L (8-16); AST/SGOT 14 U/L (15-37); BILIRUBIN,TOTAL 0.6 MG/DL (0.2-1.0); BLOOD UREA NITROGEN 10 MG/DL (7-18); CALCIUM LEVEL 7.6 MG/DL (8.8-10.2); CARBON DIOXIDE LEVEL 29 MEQ/L (21-32); CHLORIDE LEVEL 105 MEQ/L (98-107); CREATININE FOR GFR 0.57 MG/DL (0.70-1.30); GLOMERULAR FILTRATION RATE > 60.0 (>49); GLUCOSE, FASTING 118 MG/DL (80-110); MAGNESIUM LEVEL 2.1 MG/DL (1.8-2.4); POTASSIUM SERUM 3.6 MEQ/L (3.5-5.1); SODIUM LEVEL 142 MEQ/L (136-145); TOTAL PROTEIN 6.1 GM/DL (6.4-8.2)
[2016-10-10 10:30] VITALS: BP 122/64
[2016-10-10] MEDS: VANCOMYCIN HCL 1,000 MG, VIAL MATE ADAPTER 1 EACH in D5W 250 ML IV SCH ×2 (11:59→20:04)
[2016-10-10 14:30] VITALS: BP 118/58
[2016-10-10 18:00] VITALS: BP 119/62
[2016-10-10] MEDS: ACETAMINOPHEN 650 MG SUPP PR PRN (20:07)
[2016-10-10] MEDS: OLANZapine 5 MG TAB GT SCH (20:07)
[2016-10-10 22:00] VITALS: BP 110/55
[2016-10-11] MEDS: PIPERACILLIN/TAZOBACTAM SOD 3.375 GM in D5W MINI-BAG PLUS 50 ML IV SCH ×3 (01:01→16:51)
[2016-10-11] MEDS: SLF 3 ML SYR IV SCH ×3 (03:01→21:43)
[2016-10-11 06:00] VITALS: BP 113/57
[2016-10-11] MEDS: HumaLOG INSULIN (NovoLOG) PER UNIT SC SCH ×3 (07:30→17:31)
[2016-10-11 08:34] LABS: BASO # 0.1 K/mm3 (0.0-0.2); BASO % 1.9 % (0.0-1.0); EOS % 1.7 % (0.0-3.0); LARGE UNSTAINED CELL # 0.1 K/mm3 (0.0-0.4); LARGE UNSTAINED CELL % 3.1 % (0.0-4.0); LYMPH # 1.4 K/mm3 (1.5-4.5); LYMPH % 40.6 % (24.0-44.0); MEAN CORPUSCULAR HEMOGLOBIN 30.8 pg (27.0-33.0); MEAN CORPUSCULAR HGB CONC 32.7 g/dl (32.0-36.5); MEAN CORPUSCULAR VOLUME 94.4 fl (80.0-96.0); MONO # 0.3 K/mm3 (0.0-0.8); MONO % 8.4 % (0.0-5.0); NEUTROPHILS # 1.4 K/mm3 (1.8-7.7); NEUTROPHILS % 44.4 % (36.0-66.0); PLATELET COUNT, AUTOMATED 124 k/mm3 (150-450); RED CELL DISTRIBUTION WIDTH 15.8 % (11.5-14.5); WHITE BLOOD COUNT 3.2 K/mm3 (4.0-10.0)
[2016-10-11 08:58] LABS: ALBUMIN 2.5 GM/DL (3.2-5.2); ALBUMIN/GLOBULIN RATIO 0.68 (1.00-1.93); ALKALINE PHOSPHATASE 42 U/L (45-117); ALT/SGPT 15 U/L (12-78); ANION GAP 6 MEQ/L (8-16); AST/SGOT 12 U/L (15-37); BILIRUBIN,TOTAL 0.6 MG/DL (0.2-1.0); BLOOD UREA NITROGEN 11 MG/DL (7-18); CALCIUM LEVEL 7.9 MG/DL (8.8-10.2); CARBON DIOXIDE LEVEL 32 MEQ/L (21-32); CHLORIDE LEVEL 103 MEQ/L (98-107); CREATININE FOR GFR 0.81 MG/DL (0.70-1.30); GLOMERULAR FILTRATION RATE > 60.0 (>49); GLUCOSE, FASTING 119 MG/DL (80-110); MAGNESIUM LEVEL 2.2 MG/DL (1.8-2.4); POTASSIUM SERUM 3.8 MEQ/L (3.5-5.1); SODIUM LEVEL 141 MEQ/L (136-145); TOTAL PROTEIN 6.2 GM/DL (6.4-8.2)
[2016-10-11 10:00] VITALS: BP 112/55
[2016-10-11] MEDS: VANCOMYCIN HCL 1,000 MG, VIAL MATE ADAPTER 1 EACH in D5W 250 ML IV SCH ×2 (10:16→21:43)
--- NOTE | 2016-10-11 11:17 | IPN ---
DATE: 10/11/2016 Patient seen and examined at the bedside. Chart has been reviewed. Per nursing, patient is usually lethargic in the morning which is his usual according to [facility] staff. Patient did much better into the middle and late afternoon yesterday. Was able to sit up and eat his food. He usually groans at his baseline, does not speak or not conversant for the past few years. This morning, he is arousable but does back to sleep rather quickly. Does not keep his eyes open but he does have purposeful movements. He was resisting opening his eyelids at the bedside. Responds to his name and goes immediately back to sleep. Temperature 97.6, pulse 69, respiratory rate 18, blood pressure 113/57, 97% on 1 liter nasal cannula. Generally, patient is lethargic. He does respond to his name but goes back to sleep quickly. Does not follow commands. Has purposeful movements. Lungs diminished. No wheezing or rales. Heart: S1, S2. Regular rate and rhythm. Abdomen: Soft, nontender, nondistended. Extremities have no pitting edema. White count 3.2, hemoglobin 11. Hematocrit 33, platelet count 124. Sodium 141, potassium 3.8, chloride 103, bicarbonate 32, BUN 11, creatinine 0.81, glucose 119. Urine culture 10/06: No growth. Blood culture no growth after 72 hours. Influenza A and B 10/06 negative. ASSESSMENT AND PLAN: This is a 61-year-old DO NOT RESUSCITATE, DO NOT INTUBATE [facility] resident with no trial of BiPAP, history of aspiration, currently with a gastrostomy (G) tube who presented with recurrent aspiration pneumonia and is currently on Zosyn and vancomycin with no recurrent fevers. Patient is scheduled for G-J tube feedings and placement prior to discharge. IMPRESSION: 1. Recurrent aspiration pneumonia, currently on IV antibiotics. Dr. Davis has been consulted for gastrostomy-jejunostomy (G-J) tube placement. Today restart small tube feedings. Nutrition consult after the G-J tube is placed. 2. Down's syndrome, chronic, nonverbal and noncommunicative at baseline. 3. Acute hypoxic respiratory failure secondary to aspiration pneumonia. Patient is currently saturating 97-98% on 1 liter. Will titrate once ready for discharge. 4. Type 2 diabetes, chronic. 5. Thrombocytopenia, improving. DISPOSITION: Awaiting G-J tube placement. Tolerance to tube feeding prior to discharge to [facility]. CODE STATUS: DO NOT RESUSCITATE, DO NOT INTUBATE, no trial of BiPAP.
--- NOTE | 2016-10-11 14:27 | PHACANCOPD ---
PHARMACY VANCOMYCIN DOSING Pt Demographics Demographics Patient Age:61 , Weight:56.100 , Gender: male Adjusted Body Weight Date: 10/06/16, Adjusted Body Weight: [NA] Kg Events Past 24 Hours Events Past 24 Hours: NO: Dialysis, Diuretic Therapy, Change in CrCl, Fever, Elevation in WBC, Pending Diagnostics, Pending Procedures, Other Vancomycin Vancomycin indication: aspiration pneumonia/hx of MRSA Vancomycin Target Ranges: 15-20 mcg/ml Vancomycin Load Y/N: Yes Load Dose Date Time Vancomycin Load Dose: 1000mg Date: 10/06 Time: ~18:00 - in ER Vancomycin Dose Date: 10/11/16. Current Vancomycin Dose: [1gm IV q12h@21] Date: 10/08/16. Current Vancomycin Dose: [1g IV q12h @21] Date: 10/06/16. Current Vancomycin Dose: [750mg IV q12h @21] Intermittent Dosing?: No Labs Labs Vital Signs Label Value Date Time Patient Temperature 99.0 degrees F 10/10/16 2200 Temperature Source Core 10/10/16 2200 Patient Temperature 97.6 degrees F 10/11/16 0600 Temperature Source Core 10/11/16 0600 Item Value Date Time White Blood Count 3.8 K/mm3 L 10/10/16 0729 White Blood Count 3.2 K/mm3 L 10/11/16 0803 Creatinine 0.81 MG/DL 10/11/16 0803 Vancomycin Level Trough 11.5 UG/ML 10/08/16 0841 Vancomycin Level Trough 17.6 UG/ML 10/11/16 0803 Micro Microbiology 10/06/16 Blood Culture - Preliminary, Resulted No Growth after 72 hours. All specime... 10/06/16 Blood Culture - Preliminary, Resulted No Growth after 72 hours. All specime... 10/06/16 Influenza Virus Type A Antigen - Final, Complete 10/06/16 Influenza Virus Type B Antigen - Final, Complete 10/06/16 Urine Culture - Final, Complete Creatinine Clearance Date:10/08/16. Creatinine Clearance: [88 ml/min]. Date:10/06/16. Creatinine Clearance: [64 ml/min]. Pending Labs Vanco trough scheduled 10/11 @0800 Assessment and Plan Maintaining Current Dose?: Yes Reason for dose change: No Dose Change Pharmacist Note Pharmacist Note 10/11: Vancomycin trough came back at 17.6 today. We will continue him on 1gm IV q12h. He has no fever today and his micro is no growth so far. His SCr has increased from yesterday. If it continues to trend up we will obtain another trough to make sure he is not accumulating. We will continue to monitor and make adjustments as necessary. Date: 10/08/16. Pharmacist note: vanco trough drawn ~20 min before the 4th dose came back at 11.5. I have changed his dosing to 1g q12h per previous consults. SCr has significantly improved since admission. We will obtain a trough around every 4 days to ensure he is not accumulating. Urine culture showed no growth, blood cultures are NGTD. We will continue to monitor. Date: 10/06/16. Pharmacist note: pt has been admitted for aspiration pneumonia, he was admitted back in July of this year with similar symptoms and had multiple body sources that grew MRSA (RYAN = 1). His SCr today is slightly higher than his baseline (~0.7 mg/dl), he had been maintained for ~14 days on vanco 1g q12h during his last admission before he had significant accumulation and was changed to 750mg q12h. Vanco 1g IV was ordered in the ER this evening and I have started 750mg q12h tonight. I have a trough scheduled before the 4th dose and will adjust dosing if necessary. [facility] October 11, 2016 14:26
[2016-10-11 16:15] VITALS: BP 127/58
[2016-10-11 17:00] VITALS: BP 128/62
[2016-10-11] MEDS ORDERED: DEXTROSE 50% 50 ML SYRINGE IV PRN (17:45)
--- NOTE | 2016-10-11 17:53 | REPKIM ---
CLINICAL HISTORY: Patient with a history of Down syndrome and other medical comorbidities has a 14F RYAN gastrostomy tube. The patient presents because of aspiration pneumonia/precautions needing conversion of the gastrostomy tube to a gastrojejunostomy tube. PROCEDURE PERFORMED: Conversion of Gastrostomy Tube to Gastrojejunostomy Tube INTERVENTIONALIST: Mervin Davis MD CONSENT: The risks, benefits and alternatives to the procedure were explained to Mr. Urban Osborne, who is the legal guardian, and informed phone consent was obtained and witnessed. MEDICATIONS: Local Lidocaine 2% CONTRAST: 55 mL Isovue 300 EBL: 5 mL FLUORO TIME: 6.6 minutes DEVICES USED: 6 mm [place] Balloon Lot#[id number], 22F RYAN Gastrojejunostomy Tube Lot#[id number] PROCEDURE/FINDINGS: The patient was brought to the interventional radiology suite where a timeout procedure was performed. The patient was placed in the supine position with head of bed elevated. The abdomen and indwelling catheter prepped and draped in a sterile fashion. Contrast was injected into the existing 14-Guamanian gastrostomy tube showing its tip to be in the stomach. A guidewire was coaxially advanced through the tube and coiled within the stomach. The existing tube was removed and a 7-Guamanian sheath was introduced over the guidewire. A Kumpe catheter was then coaxially advanced into the stomach. Then using a hydrophilic guidewire, the catheter-guidewire combination was advanced under fluoroscopy through the pyloric canal, duodenal sweep and into the proximal jejunum. Wire exchange was performed and a stiff guidewire was introduced. Over the guidewire, a 22-Guamanian RYAN gastrojejunostomy feeding tube was introduced and advanced after dilation of its tract using a 6 mm angioplasty balloon. The retention balloon was inflated in the gastric lumen with approximately 8 mL dilute contrast/saline and retention disc was snugly secured to the abdominal wall. Contrast was injected into both the gastric and jejunal ports to confirm satisfactory course and position. Post procedure radiograph shows the tip of the feeding tube in the proximal jejunum. The patient tolerated the procedure well with no immediate complications. This procedure was performed using fluoroscopy. Dr. Davis was present. IMPRESSION: Successful conversion of 14-F gastrostomy tube to a 22-Guamanian RYAN gastrojejunostomy feeding tube as discussed above. The gastrojejunostomy feeding tube tip is in the proximal jejunum. Plan: The feeding tube is ready for use. Flush the jejunal port with 30-40 mL water every 6 hours during continuous feeding, before and after every intermittent feeding, or at least every 8 hours if the tube is not being used. Please give medications via the gastric port. The gastric port should also be flushed with 30mL water before and after administration of medications. The tube should be changed by Interventional Radiology in 6 months as part of preventive maintenance. cc: DO Karen Keith MD MTDD
[2016-10-11 18:00] VITALS: BP 130/63
[2016-10-11] MEDS: OLANZapine 5 MG TAB GT SCH (21:43)
[2016-10-11 22:00] VITALS: BP 125/59
[2016-10-12] MEDS: PIPERACILLIN/TAZOBACTAM SOD 3.375 GM in D5W MINI-BAG PLUS 50 ML IV SCH ×3 (00:27→15:07)
[2016-10-12] MEDS: SLF 3 ML SYR IV SCH ×3 (05:52→21:20)
[2016-10-12 06:00] VITALS: BP 119/58
[2016-10-12 06:56] LABS: EOS % 1.4 % (0.0-3.0); LARGE UNSTAINED CELL # 0.1 K/mm3 (0.0-0.4); LARGE UNSTAINED CELL % 3.5 % (0.0-4.0); LYMPH # 1.3 K/mm3 (1.5-4.5); LYMPH % 37.7 % (24.0-44.0); MEAN CORPUSCULAR HEMOGLOBIN 31.3 pg (27.0-33.0); MEAN CORPUSCULAR HGB CONC 33.6 g/dl (32.0-36.5); MEAN CORPUSCULAR VOLUME 93.1 fl (80.0-96.0); MONO # 0.3 K/mm3 (0.0-0.8); MONO % 8.8 % (0.0-5.0); NEUTROPHILS # 1.5 K/mm3 (1.8-7.7); NEUTROPHILS % 47.5 % (36.0-66.0); PLATELET COUNT, AUTOMATED 117 k/mm3 (150-450); RED CELL DISTRIBUTION WIDTH 15.6 % (11.5-14.5); WHITE BLOOD COUNT 3.1 K/mm3 (4.0-10.0)
[2016-10-12 07:25] LABS: ALBUMIN 2.5 GM/DL (3.2-5.2); ALBUMIN/GLOBULIN RATIO 0.68 (1.00-1.93); ALKALINE PHOSPHATASE 45 U/L (45-117); ALT/SGPT 12 U/L (12-78); ANION GAP 8 MEQ/L (8-16); AST/SGOT 12 U/L (15-37); BILIRUBIN,TOTAL 0.5 MG/DL (0.2-1.0); BLOOD UREA NITROGEN 11 MG/DL (7-18); CALCIUM LEVEL 7.9 MG/DL (8.8-10.2); CARBON DIOXIDE LEVEL 28 MEQ/L (21-32); CHLORIDE LEVEL 103 MEQ/L (98-107); CREATININE FOR GFR 0.67 MG/DL (0.70-1.30); GLOMERULAR FILTRATION RATE > 60.0 (>49); GLUCOSE, FASTING 140 MG/DL (80-110); MAGNESIUM LEVEL 2.3 MG/DL (1.8-2.4); POTASSIUM SERUM 3.8 MEQ/L (3.5-5.1); SODIUM LEVEL 139 MEQ/L (136-145); TOTAL PROTEIN 6.2 GM/DL (6.4-8.2)
[2016-10-12] MEDS: VANCOMYCIN HCL 1,000 MG, VIAL MATE ADAPTER 1 EACH in D5W 250 ML IV SCH ×2 (09:13→21:19)
[2016-10-12 10:00] VITALS: BP 117/64
[2016-10-12] MEDS: ACETAMINOPHEN 650 MG SUPP PR PRN (11:42)
--- NOTE | 2016-10-12 12:55 | IPN ---
DATE OF SERVICE: 10/12/2016 The patient seen and examined at the bedside. Chart has been reviewed. He is awake and alert this morning. Answers to his name. He is nonverbal at baseline, but he is smiling. Significantly improved from the past 3 days. No other issues, per nursing, overnight. Gastro-jejunal tube was placed with no issues overnight. Temperature 98.1, pulse 74, respiratory rate 18, blood pressure 119/58, 99% on 1 liter nasal cannula. Generally, the patient answers to his name. He is awake and alert. He is smiling at the bedside. Has purposeful movements. Lungs are diminished. Gastrojejunal (GJ) tube appears clean and dry. No erythematous changes or purulent discharge. Heart: S1, S2. Sinus rhythm. Abdomen: Soft, nontender, nondistended. Extremities have no pitting edema. Coccyx sacral decubitus 2 cm in length, 0.3 in width, 0.1 in depth, no necrotic areas, scant serous drainage, some maceration, no malodorous discharge. LABORATORY DATA: White count 3.1, hemoglobin 11, hematocrit 34, platelet count 117. Sodium 139, potassium 3.8, chloride 103, bicarbonate 28, BUN 11, creatinine 0.67, glucose of 141. Urine culture negative. Blood culture negative. Influenza A and B 10/06/2016 is negative. ASSESSMENT AND PLAN: This is a 61-year-old male [facility] ([facility] [place] resident, DO NOT RESUSCITATE, DO NOT INTUBATE, no trial of bilateral positive airway pressure (BiPAP), history of aspiration, currently with a gastrojejunal tube placed yesterday, who presented to the emergency room with recurrent aspiration, treated for aspiration pneumonia, on intravenous (IV) vancomycin and Zosyn. No sputum culture is available. CURRENT ISSUES: 1. Recurrent aspiration pneumonia, currently on IV antibiotics. Awaiting a nutritional consult for tube feeding changes. 2. Chronic aspiration. Gastrojejunal tube was placed yesterday. Requiring a kangaroo pump to be arranged by nursing for outpatient discharge in the morning. 3. Down syndrome, chronic, nonverbal, noncommunicative at baseline. 4. Acute hypoxic respiratory failure secondary to aspiration pneumonia. Saturating 97% to 98% on 1 liter nasal cannula currently. Will check on room air at discharge. 5. Type 2 diabetes, chronic. 6. Thrombocytopenia. No acute indication for transfusion. No active signs of bleeding. 7. Pancytopenia. Continue to monitor for now. DISPOSITION: Discharge in the morning.
[2016-10-12 14:00] VITALS: BP 115/63
[2016-10-12] MEDS: OLANZapine 5 MG TAB GT SCH (21:20)
[2016-10-12 22:00] VITALS: BP 133/63
[2016-10-13] MEDS: PIPERACILLIN/TAZOBACTAM SOD 3.375 GM in D5W MINI-BAG PLUS 50 ML IV SCH ×3 (00:55→16:00)
[2016-10-13] MEDS: ACETAMINOPHEN 650 MG SUPP PR PRN (01:07)
[2016-10-13 06:00] VITALS: BP 122/58
[2016-10-13] MEDS: SLF 3 ML SYR IV SCH ×2 (06:56→14:00)
[2016-10-13 07:14] LABS: BASO % 1.6 % (0.0-1.0); EOS % 1.2 % (0.0-3.0); LARGE UNSTAINED CELL # 0.1 K/mm3 (0.0-0.4); LARGE UNSTAINED CELL % 3.2 % (0.0-4.0); LYMPH # 1.4 K/mm3 (1.5-4.5); LYMPH % 38.5 % (24.0-44.0); MEAN CORPUSCULAR HEMOGLOBIN 30.7 pg (27.0-33.0); MEAN CORPUSCULAR HGB CONC 32.9 g/dl (32.0-36.5); MEAN CORPUSCULAR VOLUME 93.3 fl (80.0-96.0); MONO # 0.3 K/mm3 (0.0-0.8); MONO % 9.5 % (0.0-5.0); NEUTROPHILS # 1.6 K/mm3 (1.8-7.7); PLATELET COUNT, AUTOMATED 127 k/mm3 (150-450); RED CELL DISTRIBUTION WIDTH 15.9 % (11.5-14.5); WHITE BLOOD COUNT 3.4 K/mm3 (4.0-10.0)
[2016-10-13 07:37] LABS: ALBUMIN 2.6 GM/DL (3.2-5.2); ALBUMIN/GLOBULIN RATIO 0.58 (1.00-1.93); ALKALINE PHOSPHATASE 43 U/L (45-117); ALT/SGPT 13 U/L (12-78); ANION GAP 6 MEQ/L (8-16); AST/SGOT 13 U/L (15-37); BILIRUBIN,TOTAL 0.3 MG/DL (0.2-1.0); BLOOD UREA NITROGEN 14 MG/DL (7-18); CALCIUM LEVEL 8.4 MG/DL (8.8-10.2); CARBON DIOXIDE LEVEL 29 MEQ/L (21-32); CHLORIDE LEVEL 104 MEQ/L (98-107); CREATININE FOR GFR 0.74 MG/DL (0.70-1.30); GLOMERULAR FILTRATION RATE > 60.0 (>49); GLUCOSE, FASTING 132 MG/DL (80-110); MAGNESIUM LEVEL 2.4 MG/DL (1.8-2.4); POTASSIUM SERUM 3.9 MEQ/L (3.5-5.1); SODIUM LEVEL 139 MEQ/L (136-145); TOTAL PROTEIN 7.1 GM/DL (6.4-8.2)
[2016-10-13 08:00] VITALS: BP 134/63
[2016-10-13] MEDS: VANCOMYCIN HCL 1,000 MG, VIAL MATE ADAPTER 1 EACH in D5W 250 ML IV SCH (10:06)
--- NOTE | 2016-10-13 11:38 | DSES ---
DATE OF ADMISSION: 10/06/2016 DATE OF DISCHARGE: 10/13/16 PRIMARY DISCHARGE DIAGNOSES: 1. Recurrent aspiration pneumonia. 2. Chronic aspiration. 3. Chronic Down Syndrome. 4. Acute hypoxic respiratory failure secondary to aspiration pneumonia. 5. Type 2 diabetes. 6. Pancytopenia most likely secondary to antibiotics. 7. Stage II coccygeal sacral decubitus ulcer present on admission. DISCHARGE MEDICATIONS: - Albuterol 2.5 mg four times a day - atorvastatin 40 nightly - bisacodyl 10 mg per rectum as needed every 2 days - carbidopa levadopa - Sinemet 25/100 one tablet G-tube, three times a day. - Senokot one tablet nightly - fluoxetine 20 daily - MiraLAX 17 grams daily - ProMod 30 mL daily - Silvadene topically twice a day - tamsulosin 0.4 daily - zinc oxide topically twice a day FOLLOWUP INSTRUCTIONS: Tube feedings per school psychologist's recommendation and wound care for cocci decubitus stage II present on admission per correctional program specialist. HOSPITAL COURSE: This is a 61-year-old male [facility] resident, DO NOT RESUSCITATE, DO NOT INTUBATE, no trial of BiPAP, history of aspiration previously said to have a gastrojejunostomy tube, presents to the emergency room with shortness of breath, acute hypoxic failure and was found to have recurrent aspiration pneumonia. He was started on vancomycin and Zosyn. The patient underwent gastrojejunal tube placement by interventional radiology. He tolerated this procedure well. He had episodes of confusion, which abated and was back to baseline. Ammonia level was within normal limits. Blood gases could not be obtained as the patient would not want a trial of BiPAP. Microbiology included blood cultures negative for 5 days, influenza A and B negative. Urine culture showed no growth. Chest x-ray showed left lower lobe infiltrate and cardiomegaly on 10/06/2016. He completed 7 days of vancomycin and Zosyn. He has had no fevers. The patient was pancytopenia but not requiring intervention. He is stable for discharge to followup with his primary care physician within a week of discharge. PROCEDURES DURING THIS ADMISSION: Gastrojejunostomy tube placed by interventional radiologist, Dr. Mevrin Davis. LABS ON DISCHARGE: White count 3.4, hemoglobin 12, hematocrit 36, platelet count 127. Sodium 139, potassium 3.9, chloride 104, bicarbonate 29, BUN 14, creatinine 0.74, glucose 132. Calcium 8.4, magnesium 2.4. Total bilirubin 0.3, AST 13, ALT 13, alkaline phosphatase 43. Urine culture 10/06/2016 - no growth. Two sets of blood culture 10/06/2016 - n growth. Influenza A and B 10/06/2016 - negative. IMAGING STUDIES: Chest x-ray: Left lower lobe infiltrate and cardiomegaly. Abdominal x-ray on 10/06/2016 shows feeding tube is seen overlying the stomach. Degenerative changes of the spine. Time spent on discharge: 30 minutes. MTDD
[2016-10-13 12:00] VITALS: BP 126/62
== END 2016-10-13 17:29 | disposition home or self-care (01) | DRG 177 ==
LOC: EDBD 14:47 → M ED 16:45 → M ED INP 16:46 → M PCU 21:16 → M MS5PR 10-09 21:42
PROVIDERS: ADMIT Internal Medicine; ATTEND General Practice
PROC: 0DHA3UZ Insertion of Feeding Device into Jejunum, Percutaneous Approach (ICD-10-PCS; principal; 2016-10-11)
DX: J69.0 Pneumonitis due to inhalation of food and vomit (principal); J96.01 Acute respiratory failure with hypoxia; D61.811 Other drug-induced pancytopenia; E87.1 Hypo-osmolality and hyponatremia; L89.152 Pressure ulcer of sacral region, stage 2; Q90.9 Down syndrome, unspecified; E11.9 Type 2 diabetes mellitus without complications; Z79.899 Other long term (current) drug therapy; Z66 Do not resuscitate; G20 Parkinson's disease; G47.30 Sleep apnea, unspecified; J45.909 Unspecified asthma, uncomplicated; N40.0 Benign prostatic hyperplasia without lower urinary tract symptoms; D69.6 Thrombocytopenia, unspecified; F32.9 Major depressive disorder, single episode, unspecified; K59.00 Constipation, unspecified; Z93.1 Gastrostomy status

== ENCOUNTER → 2016-10-09 | Outpatient (CLI) | payer MEDICARE, MEDICAID ==
[~2016-10-09] MED LIST changes: +BISA10SU27 PR; +DESI13CR2 TOP; +IPRA2IN INH; +ISOVUE-300 61% 50ML VIAL (Q9967) As Ordered ONE; +KEFL500C7 PO; +LIDOCAINE 2% MDV 20 ML VIAL As Ordered ONE; +PROMLIQ9 GT; +SILV1CRE19 TOP; +SODIUM BICARBONATE 8.4% INJ 50MEQ 50 ML VIAL As Ordered ONE; +atrovent NEB
--- NOTE | 2016-10-10 13:56 | IPN ---
DATE: 10/10/2016 SUBJECTIVE: Patient was very difficult to arouse this morning. Opens his eyes only with sternal rub. With continued prompting, patient is able to keep his eyes open. Arterial blood gas could not be performed as patient would not want a trial of BiPAP intubation. He is full DO NOT RESUSCITATE, DO NOT INTUBATE. Ammonia level is 24 and glucose at a level of 118. Per nursing, baseline is communicative and appropriate. This morning, patient is not speaking. He is able to open his eyes but does not keep it open for long periods of time. OBJECTIVE PHYSICAL EXAMINATION: Vitals: Temperature 97.8, pulse 95, respiratory 16, blood pressure 145/68, 98% on 2 liter nasal cannula. Temperature 97.8, pulse 95, respiratory rate 16, blood pressure 145/68, 98% on 2 liters nasal cannula. Generally, patient is lethargic but opens his eyes. Purposeful movements but noncommunicative. Lungs: Diminished with left sided fine crackles. Heart: S1, S2. Sinus rhythm. Abdomen: Soft, nontender, nondistended. Extremities have no pitting edema. Neurologically, patient is arousable but lethargic. LABORATORY DATA: Ammonia level is 24, glucose of 118. [facility], metabolic panel have been reviewed. ASSESSMENT AND PLAN: This is a 61-year-old male with history of Down's syndrome , asthma, benign prostatic hypertrophy (BPH), non-insulin dependent type 2 diabetes, dyslipidemia, Parkinson's disease, abdominal hernia, sleep apnea on oxygen 2 liters and recurrent aspiration pneumonia presented to the ER with fever of 102.8. Previously admitted for aspiration pneumonia 07/07 to 07/27/2016 for Methicillin-resistant staphylococcus aureus (MRSA) bacteremia, aspiration pneumonia. Percutaneous endoscopic gastrostomy tube was replaced due to dysfunction of the PEG tube. Since then, patient has had a change in mental status despite normal glucose, ammonia level, afebrile. CURRENT ISSUES: 1. Acute encephalopathy. Differential diagnosis includes hypercarbia which we are unable to assess due to no trial of BiPAP. At this time, patient is on vancomycin and Zosyn for aspiration pneumonia. We will continue for the same. Dr. Davis has been consulted for JJ tube placement on Sunday or . He is currently on tube feedings and checking residuals. 2. Aspiration pneumonia, recurrent. JJ tube placement on Sunday or . Currently on small tube feedings. 3. Acute respiratory failure with hypoxia, restarted back on oxygen. Appears to be saturating well. 4. Leukocytosis, improving. 5. Type 2 diabetes, chronic. No episodes of hypoglycemia. 6. Chronic Down's syndrome. [facility]
== END | disposition home or self-care (01) ==
LOC: M IRPRO 08:00
DX: J69.0 Pneumonitis due to inhalation of food and vomit (principal); J96.01 Acute respiratory failure with hypoxia

== ENCOUNTER 2016-10-26 09:15 | Emergency (ER) | payer MEDICARE, MEDICAID ==
[~2016-10-26] VITALS: Ht 157.5 cm; Wt 56.7 kg
[~2016-10-26 09:15] MED LIST changes: -ISOVUE-300 61% 50ML VIAL (Q9967) As Ordered ONE; -KEFL500C7 PO; -LIDOCAINE 2% MDV 20 ML VIAL As Ordered ONE; -SODIUM BICARBONATE 8.4% INJ 50MEQ 50 ML VIAL As Ordered ONE
[2016-10-26 10:06] LABS: INR 1.24
[2016-10-26 10:12] LABS: MEAN CORPUSCULAR HEMOGLOBIN 31.5 pg (27.0-33.0); MEAN CORPUSCULAR HGB CONC 34.1 g/dl (32.0-36.5); MEAN CORPUSCULAR VOLUME 92.3 fl (80.0-96.0); PLATELET COUNT, AUTOMATED 121 k/mm3 (150-450); WHITE BLOOD COUNT 7.7 K/mm3 (4.0-10.0)
--- NOTE | 2016-10-26 10:25 | REP ---
Draining wound. Evaluate for abscess. Technique: Real time directed ultrasound examination using linear high frequency transducer. Findings: Directed ultrasound examination over the area of wound/ulceration demonstrates subcutaneous edema without discrete fluid collection to suggest abscess or phlegmon at the time evaluation. Impression: Subcutaneous edema. No discrete drainable fluid collection or abscess. Signed by Steven Rossi MD 10/26/2016 10:17 A
[2016-10-26 10:29] LABS: ANION GAP 9 MEQ/L (8-16); BLOOD UREA NITROGEN 21 MG/DL (7-18); CALCIUM LEVEL 8.5 MG/DL (8.8-10.2); CARBON DIOXIDE LEVEL 29 MEQ/L (21-32); CHLORIDE LEVEL 100 MEQ/L (98-107); CREATININE FOR GFR 0.72 MG/DL (0.70-1.30); GLOMERULAR FILTRATION RATE > 60.0 (>49); GLUCOSE, FASTING 159 MG/DL (80-110); POTASSIUM SERUM 4.2 MEQ/L (3.5-5.1); SODIUM LEVEL 138 MEQ/L (136-145)
[2016-10-26 10:38] LABS: ANISOCYTOSIS 1+; EOSINOPHILS 3 % (0-5)
[2016-10-26] MEDS ORDERED: LIDOCAINE 2% W/EPIN INJ 20ML **PRES FREE INJ ONE (12:30)
[2016-10-26 13:00] VITALS: BP 111/55
[2016-10-26] MEDS ORDERED: KEFL500C7 PO (13:34)
== END 2016-10-26 13:43 | disposition home or self-care (01) ==
LOC: M ED 09:34
DX: S31.000A Unspecified open wound of lower back and pelvis without penetration into retroperitoneum, initial encounter (principal); X58.XXXA Exposure to other specified factors, initial encounter; Y92.89 Other specified places as the place of occurrence of the external cause; Y93.89 Activity, other specified; Y99.8 Other external cause status; E11.9 Type 2 diabetes mellitus without complications; J45.909 Unspecified asthma, uncomplicated; G47.30 Sleep apnea, unspecified; N40.0 Benign prostatic hyperplasia without lower urinary tract symptoms; Q90.9 Down syndrome, unspecified; F79 Unspecified intellectual disabilities; Z79.899 Other long term (current) drug therapy; Z88.8 Allergy status to other drugs, medicaments and biological substances

== ENCOUNTER → 2016-11-16 | Outpatient (CLI) | payer MEDICARE, MEDICAID ==
[~2016-11-16] MED LIST changes: +ISOVUE-300 61% 50ML VIAL (Q9967) As Ordered ONE; +KEFL500C7 PO; +SODIUM BICARBONATE 4 % INJ 2.4MEQ 5 ML VIAL (THIS HAS A PRESERVATIVE) As Ordered ONE
--- NOTE | 2016-11-16 17:59 | REPKIM ---
CLINICAL HISTORY: Patient with a history of Down syndrome, aspiration pneumonia and other medical comorbidities has a 22F RYAN gastrojejunostomy feeding tube. The referring [facility] service has asked to evaluate the feeding tube for suspected feeding tube dysfunction. PROCEDURE PERFORMED: Gastrojejunostomy Feeding Tube Check INTERVENTIONALIST: Mervin Davis MD CONSENT: The risks, benefits and alternatives to the procedure were explained to Mr. Urban Osborne, who is the legal guardian, and informed phone consent was obtained and witnessed. CONTRAST: 25 mL Isovue 300 FLUORO TIME: 0.1 minutes PROCEDURE/FINDINGS: The patient was brought to the interventional radiology suite where a timeout procedure was performed. The patient was placed in the supine position with head of bed elevated. Contrast was injected into the existing jejunal port of the GJ tube showing its tip to be in the small bowel and widely patent. Contrast was injected into the gastric port to confirm its tip in the stomach. No evidence of contrast leak identified. The patients retention disc was found to be impinging on the skin. The disc was gently withdrawn and a sterile dressing placed between the skin and the disc. The patient tolerated the procedure well with no immediate complications. This procedure was performed using fluoroscopy. Dr. Davis was present. IMPRESSION: The existing gastrojejunostomy feeding tube is widely patent in a satisfactory course and position. The jejunal feeding port can be used immediately. cc: DO Karen Keith MD [facility]ITALAbdoulaye
== END | disposition home or self-care (01) ==
LOC: M IRPRO 12:48
DX: Z43.1 Encounter for attention to gastrostomy (principal); Q90.9 Down syndrome, unspecified
CPT/HCPCS: 49465; Q9967

== ENCOUNTER 2016-12-16 14:39 | Emergency (ER) | payer MEDICARE, MEDICAID ==
[~2016-12-16] VITALS: Ht 157.5 cm; Wt 56.8 kg
[~2016-12-16 14:39] MED LIST changes: -ATOR40TA GT; +ATOR40TA75 GT; -AUGM875T27 PO; +AUGM875T28 PO; +BACITAB PO; -BACITAB3 PO; +CLIN150C14 PO; -CLIN1CAP5 PO; -ISOVUE-300 61% 50ML VIAL (Q9967) As Ordered ONE; +KEFL500C17 PO; -KEFL500C7 PO; +LEVA1TAB2 PO; -LEVA500T PO; +PAXI20TA29 GT; -PAXI20TA3 GT; -SILV1CRE19 TOP; +SILV1CRE60 TOP; -SODIUM BICARBONATE 4 % INJ 2.4MEQ 5 ML VIAL (THIS HAS A PRESERVATIVE) As Ordered ONE
[2016-12-16 17:28] VITALS: BP 109/65
== END 2016-12-16 17:36 | disposition home or self-care (01) ==
LOC: M ED 14:39
DX: K94.23 Gastrostomy malfunction (principal)

== ENCOUNTER 2017-01-12 11:22 | Emergency (ER) | payer MEDICARE, MEDICAID ==
[~2017-01-12] VITALS: Ht 165.1 cm; Wt 56.8 kg
[2017-01-12 14:53] VITALS: BP 110/82
== END 2017-01-12 14:55 | disposition home or self-care (01) ==
LOC: M ED 11:22
DX: K94.23 Gastrostomy malfunction (principal)

== ENCOUNTER 2017-06-02 09:16 | Emergency (ER) | payer MEDICARE, MEDICAID ==
[2017-06-02 09:17] VITALS: BP 115/60
== END 2017-06-02 10:45 | disposition home or self-care (01) ==
LOC: M ED 09:16
DX: Z43.1 Encounter for attention to gastrostomy (principal); Q90.9 Down syndrome, unspecified

== ENCOUNTER 2017-06-03 15:32 | Emergency (ER) | payer MEDICARE, MEDICAID ==
[2017-06-03] MEDS: NS 500 ML IV (16:30)
[2017-06-03 17:09] LABS: KETONE, URINE AUTO RFX TRACE mg/dL (NEGATIVE); LEUKOCYTE ESTERASE UR AUTO RFX NEGATIVE (NEGATIVE); NITRITE, URINE AUTO RFX NEGATIVE (NEGATIVE); RBC, URINE AUTO RFX 2 /HPF (0-3); SPECIFIC GRAVITY UR AUTO RFX 1.021 (1.002-1.035); SQUAM EPITHELIAL CELL UR AURFX 0 /HPF (0-6); WBC, URINE AUTO RFX 1 /HPF (0-3)
[2017-06-03 17:13] LABS: MEAN CORPUSCULAR HEMOGLOBIN 31.7 pg (27.0-33.0); MEAN CORPUSCULAR VOLUME 93.2 fl (80.0-96.0); PLATELET COUNT, AUTOMATED 115 10^3/uL (150-450); WHITE BLOOD COUNT 10.9 10^3/uL (4.0-10.0)
[2017-06-03 17:30] LABS: ADD MANUAL DIFFER YES; DIFF SLIDE NUMBER 134; LEFT SHIFT POS FLAG; POSITIVE MORPH POS FLAG
[2017-06-03 17:31] LABS: LACTIC ACID SEPSIS PROTOCOL 1.8 MMOL/L (0.4-2.0)
[2017-06-03 17:33] LABS: ANISOCYTOSIS 1+; BANDS 8 % (< 11)
[2017-06-03 17:40] LABS: ALBUMIN/GLOBULIN RATIO 0.75 (1.00-1.93); ALKALINE PHOSPHATASE 61 U/L (45-117); ALT/SGPT 12 U/L (12-78); ANION GAP 7 MEQ/L (8-16); AST/SGOT 21 U/L (7-37); BILIRUBIN,DIRECT 0.5 MG/DL (0.0-0.2); BILIRUBIN,TOTAL 1.5 MG/DL (0.2-1.0); BLOOD UREA NITROGEN 27 MG/DL (7-18); CALCIUM LEVEL 7.9 MG/DL (8.8-10.2); CARBON DIOXIDE LEVEL 27 MEQ/L (21-32); CHLORIDE LEVEL 97 MEQ/L (98-107); CREATININE FOR GFR 0.87 MG/DL (0.70-1.30); GLOMERULAR FILTRATION RATE > 60.0 (>49); GLUCOSE, FASTING 232 MG/DL (80-110); POTASSIUM SERUM 4.8 MEQ/L (3.5-5.1); SODIUM LEVEL 131 MEQ/L (136-145)
[2017-06-03] MEDS: GASTROGRAFIN SOLUTION 30ML (Q9963) PO ×2 (18:30→19:27)
[2017-06-03] MEDS ORDERED: ISOVUE-370 76% 100ML VIAL (Q9967) As Ordered (19:08)
[2017-06-03] MEDS: LevoFLOXacin IV 750 MG in APPROPRIATE DILUENT 1 EA IV (21:16)
== END 2017-06-04 00:22 | disposition short-term general hospital (02) ==
LOC: M ED 06-04 00:22
DX: Z43.1 Encounter for attention to gastrostomy (principal); J18.9 Pneumonia, unspecified organism; K56.609 Unspecified intestinal obstruction, unspecified as to partial versus complete obstruction; Q90.9 Down syndrome, unspecified; G20 Parkinson's disease
CPT/HCPCS: J1956

== ENCOUNTER 2017-07-08 17:41 | Inpatient (IN) | payer MEDICARE, MEDICAID ==
[2017-07-08] MEDS ORDERED: ACETAMINOPHEN 650 MG SUPP As Ordered (17:45)
[2017-07-08] MEDS: ACETAMINOPHEN 650 MG SUPP PR (17:50)
[2017-07-08] MEDS: NS IV (18:00)
[2017-07-08] MEDS ORDERED: ACETAMINOPHEN 325 MG TAB PO (18:00)
[2017-07-08] MEDS: DILUENT IV (18:00)
[2017-07-08] MEDS: PIPERACILLIN/TAZOBACTAM SOD 3.375 GM in APPROPRIATE DILUENT 1 EA IV (18:10)
[2017-07-08 18:14] LABS: HEMATOCRIT 42.4 % (42.0-52.0); HEMOGLOBIN 13.8 g/dl (14.0-18.0); MEAN CORPUSCULAR HEMOGLOBIN 31.3 pg (27.0-33.0); MEAN CORPUSCULAR HGB CONC 32.5 g/dl (32.0-36.5); MEAN CORPUSCULAR VOLUME 96.1 fl (80.0-96.0); RED BLOOD COUNT 4.41 10^6/uL (4.30-6.10); RED CELL DISTRIBUTION WIDTH 16.1 % (11.5-14.5); WHITE BLOOD COUNT 10.7 10^3/uL (4.0-10.0)
[2017-07-08 18:24] LABS: ABG BASE EXCESS -2.7 (-2.0-2.0); ABG HCO3 20.3 MEQ/L (22.0-26.0); ABG O2 SATURATION 96.8 % (95.0-99.0); ABG PARTIAL PRESSURE CO2 30.2 mmHg (35.0-45.0); ABG PARTIAL PRESSURE O2 83.1 mmHg (75.0-100.0); ABG STANDARD HCO3 22.2 MEQ/L (22.0-26.0); ABG TOTAL CO2 21.2 MEQ/L (23.0-31.0); ABG pH (ARTERIAL) 7.445 UNITS (7.350-7.450); PROTHROMBIN TIME 15.4 SECONDS (12.4-14.5)
[2017-07-08 18:25] LABS: PARTIAL THROMBOPLASTIN TIME 28.6 SECONDS (26.8-37.9)
[2017-07-08 18:34] LABS: ADD MANUAL DIFFER YES; DIFF SLIDE NUMBER 142; PLATELET COUNT, AUTOMATED 127 10^3/uL (150-450); POSITIVE MORPH POS FLAG
[2017-07-08 18:37] LABS: ALBUMIN 3.1 GM/DL (3.2-5.2); ALBUMIN/GLOBULIN RATIO 0.69 (1.00-1.93); ALKALINE PHOSPHATASE 85 U/L (45-117); ALT/SGPT 20 U/L (12-78); ANION GAP 9 MEQ/L (8-16); AST/SGOT 28 U/L (7-37); BANDS 1 % (< 11); BASOPHILS 1 % (0-4); BILIRUBIN,DIRECT 0.3 MG/DL (0.0-0.2); BILIRUBIN,TOTAL 0.9 MG/DL (0.2-1.0); BLOOD UREA NITROGEN 24 MG/DL (7-18); C REACTIVE PROTEIN QUANTITATIV 0.49 MG/DL (0.00-0.30); CALCIUM LEVEL 8.1 MG/DL (8.8-10.2); CARBON DIOXIDE LEVEL 28 MEQ/L (21-32); CHLORIDE LEVEL 101 MEQ/L (98-107); EOSINOPHILS 1 % (0-5); GLOMERULAR FILTRATION RATE > 60.0 (>49); GLUCOSE, FASTING 197 MG/DL (70-100); LYMPHOCYTES 6 % (16-52); MONOCYTES 3 % (0-8); NEUTROPHILS 88 % (35-75); SODIUM LEVEL 138 MEQ/L (136-145); TOTAL PROTEIN 7.6 GM/DL (6.4-8.2)
[2017-07-08] MEDS ORDERED: ISOVUE-370 76% 100ML VIAL (Q9967) As Ordered (18:37)
[2017-07-08 18:38] LABS: ANISOCYTOSIS 1+; PLATELET ESTIMATE DECREASED (NORMAL)
[2017-07-08 18:41] LABS: LACTIC ACID SEPSIS PROTOCOL 2.7 MMOL/L (0.4-2.0)
[2017-07-08 18:49] LABS: INFLUENZA A AMPLIFICATION NEGATIVE (NEGATIVE); INFLUENZA B AMPLIFICATION NEGATIVE (NEGATIVE)
[2017-07-08 19:05] LABS: APPEARANCE, URINE CLEAR (CLEAR); BACTERIA, URINE AUTO NEGATIVE (NEGATIVE); BILIRUBIN, URINE AUTO NEGATIVE (NEGATIVE); BLOOD, URINE BLOOD NEGATIVE (NEGATIVE); COLOR, URINE YELLOW (YELLOW); GLUCOSE, URINE (UA) AUTO NEGATIVE (NEGATIVE); KETONE, URINE AUTO NEGATIVE (NEGATIVE); LEUKOCYTE ESTERASE, URINE AUTO NEGATIVE (NEGATIVE); NITRITE, URINE AUTO NEGATIVE (NEGATIVE); PROTEIN, URINE AUTO NEGATIVE (NEGATIVE); RBC, URINE AUTO 0 /HPF (0-3); SPECIFIC GRAVITY URINE AUTO 1.013 (1.002-1.035); SQUAMOUS EPITHELIAL CELL UR AU 0 /HPF (0-6); TRANSITIONAL EPITHELIAL AUTO 1 /HPF; WBC, URINE AUTO 0 /HPF (0-3)
[2017-07-08] MEDS: VANCOMYCIN HCL 1,000 MG, VIAL MATE ADAPTER 1 EACH in D5W 250 ML IV (20:16)
[2017-07-08] MEDS ORDERED: ONDANSETRON 4MG/2ML VIAL (J2405) IV (21:00)
[2017-07-08] MEDS: OLANZapine 5 MG TAB GT (21:00)
[2017-07-08] MEDS ORDERED: ACETAMINOPHEN TAB 650MG DOSE (2X325MG) PO (21:00)
[2017-07-09] MEDS: SODIUM CHLORIDE 0.9% 1000 ML IV (01:34)
[2017-07-09] MEDS: ENOXAPARIN 40 MG/0.4 ML SYRINGE (J1650) SC (01:35)
[2017-07-09] MEDS: PIPERACILLIN/TAZOBACTAM SOD 3.375 GM in APPROPRIATE DILUENT 1 EA IV ×4 (01:49→20:37)
[2017-07-09] MEDS: NS 1,000 ML IV (02:40)
[2017-07-09] MEDS: ACETAMINOPHEN 325 MG/10.15 ML UDC GT (04:01)
[2017-07-09] MEDS: LEVALBUTEROL 1.25 MG/0.5 ML CONCENTRATE NEB INH ×6 (04:18→23:13)
[2017-07-09 05:18] LABS: BASO % 0.3 % (0.0-1.0); EOS % 0.1 % (0.0-3.0); HEMATOCRIT 34.2 % (42.0-52.0); IMMATURE GRANULOCYTE # 0.1 10^3/uL (0-0); IMMATURE GRANULOCYTE % 0.7 % (0-0); LYMPH # 0.6 10^3/uL (1.5-4.5); LYMPH % 5.9 % (24.0-44.0); MEAN CORPUSCULAR HEMOGLOBIN 31.4 pg (27.0-33.0); MEAN CORPUSCULAR HGB CONC 32.2 g/dl (32.0-36.5); MEAN CORPUSCULAR VOLUME 97.7 fl (80.0-96.0); MONO # 0.3 10^3/uL (0.0-0.8); MONO % 2.9 % (0.0-5.0); NEUTROPHILS # 8.6 10^3/uL (1.8-7.7); NEUTROPHILS % 90.1 % (36.0-66.0); RED CELL DISTRIBUTION WIDTH 16.4 % (11.5-14.5); WHITE BLOOD COUNT 9.6 10^3/uL (4.0-10.0)
[2017-07-09 05:38] LABS: ANION GAP 7 MEQ/L (8-16); BLOOD UREA NITROGEN 20 MG/DL (7-18); CALCIUM LEVEL 7.4 MG/DL (8.8-10.2); CARBON DIOXIDE LEVEL 24 MEQ/L (21-32); CHLORIDE LEVEL 109 MEQ/L (98-107); CREATININE FOR GFR 0.81 MG/DL (0.70-1.30); GLOMERULAR FILTRATION RATE > 60.0 (>49); GLUCOSE, FASTING 188 MG/DL (70-100); POTASSIUM SERUM 4.1 MEQ/L (3.5-5.1); SODIUM LEVEL 140 MEQ/L (136-145)
[2017-07-09 05:42] LABS: PLATELET COUNT, AUTOMATED 82 10^3/uL (150-450); POSITIVE MORPH POS FLAG
[2017-07-09] MEDS: PARoxetine 20 MG TAB GT (08:05)
[2017-07-09] MEDS: SINEMET 25-100 MG TAB GT ×3 (08:05→20:37)
[2017-07-09] MEDS: VANCOMYCIN HCL 1,000 MG, VIAL MATE ADAPTER 1 EACH in D5W 250 ML IV ×2 (08:05→20:37)
[2017-07-09] MEDS ORDERED: **NOTE PATIENT COMMENT** MISC XX (10:15)
[2017-07-09] MEDS: methylPREDNISolone INJ 40 MG/1 ML VIAL (J2920) IV (10:54)
[2017-07-09] MEDS: KCL 20MEQ IN 0.45NS 1000ML 1,000 ML IV (12:21)
[2017-07-09] MEDS: OLANZapine 5 MG TAB GT (20:37)
[2017-07-09] MEDS: ATORVASTATIN 20 MG TAB GT (20:37)
[2017-07-09] MEDS ORDERED: SLF 3 ML SYR IV (23:15)
[2017-07-10] MEDS: PIPERACILLIN/TAZOBACTAM SOD 3.375 GM in APPROPRIATE DILUENT 1 EA IV ×4 (01:53→18:34)
[2017-07-10] MEDS: LEVALBUTEROL 1.25 MG/0.5 ML CONCENTRATE NEB INH ×6 (03:22→23:23)
[2017-07-10] MEDS: KCL 20MEQ IN 0.45NS 1000ML 1,000 ML IV (03:55)
[2017-07-10] MEDS: SLF 3 ML SYR IV ×3 (05:40→20:18)
[2017-07-10 07:48] LABS: HEMATOCRIT 32.4 % (42.0-52.0); HEMOGLOBIN 10.6 g/dl (14.0-18.0); MEAN CORPUSCULAR HEMOGLOBIN 31.7 pg (27.0-33.0); MEAN CORPUSCULAR HGB CONC 32.7 g/dl (32.0-36.5); RED BLOOD COUNT 3.34 10^6/uL (4.30-6.10); RED CELL DISTRIBUTION WIDTH 15.9 % (11.5-14.5); WHITE BLOOD COUNT 9.2 10^3/uL (4.0-10.0)
[2017-07-10 07:50] LABS: ADD MANUAL DIFFER YES; DIFF SLIDE NUMBER 59; PLATELET COUNT, AUTOMATED 83 10^3/uL (150-450); POSITIVE MORPH POS FLAG
[2017-07-10 07:51] LABS: IMMATURE PLATELET FRACTION % 4.4 % (0.0-10.9)
[2017-07-10 08:11] LABS: BANDS 2 % (< 11); LYMPHOCYTES 10 % (16-52); METAMYELOCYTES 1 % (0-0); NEUTROPHILS 87 % (35-75); PLATELET ESTIMATE DECREASED (NORMAL)
[2017-07-10 08:13] LABS: ANISOCYTOSIS 1+
[2017-07-10 08:17] LABS: ANION GAP 4 MEQ/L (8-16); BLOOD UREA NITROGEN 16 MG/DL (7-18); CARBON DIOXIDE LEVEL 27 MEQ/L (21-32); CHLORIDE LEVEL 108 MEQ/L (98-107); CREATININE FOR GFR 0.72 MG/DL (0.70-1.30); GLOMERULAR FILTRATION RATE > 60.0 (>49); GLUCOSE, FASTING 172 MG/DL (70-100); POTASSIUM SERUM 4.3 MEQ/L (3.5-5.1); SODIUM LEVEL 139 MEQ/L (136-145); VANCOMYCIN LEVEL TROUGH 16.2 UG/ML (10.0-20.0)
[2017-07-10] MEDS: SINEMET 25-100 MG TAB GT ×3 (08:38→20:17)
[2017-07-10] MEDS: VANCOMYCIN HCL 1,000 MG, VIAL MATE ADAPTER 1 EACH in D5W 250 ML IV (08:38)
[2017-07-10] MEDS: methylPREDNISolone INJ 40 MG/1 ML VIAL (J2920) IV (08:38)
[2017-07-10] MEDS: PARoxetine 20 MG TAB GT (08:38)
[2017-07-10] MEDS ORDERED: DILUENT IV (12:30)
[2017-07-10] MEDS ORDERED: ALPHA PROTEINASE INHIBITOR IV (12:30)
[2017-07-10] MEDS ORDERED: DEXTROSE 50% 50 ML SYRINGE IV (16:30)
[2017-07-10] MEDS ORDERED: GLUCOSE 4 GM CHEW TABLET PO (16:30)
[2017-07-10] MEDS ORDERED: GLUCAGON FOR INJ 1 MG VIAL (J1610) SC (16:30)
[2017-07-10] MEDS: HumaLOG INSULIN (NovoLOG) PER UNIT SC (18:31)
[2017-07-10] MEDS: ATORVASTATIN 20 MG TAB GT (20:17)
[2017-07-10] MEDS: OLANZapine 5 MG TAB GT (20:18)
[2017-07-11] MEDS: PIPERACILLIN/TAZOBACTAM SOD 3.375 GM in APPROPRIATE DILUENT 1 EA IV ×3 (00:22→12:10)
[2017-07-11] MEDS: HumaLOG INSULIN (NovoLOG) PER UNIT SC ×4 (00:22→18:13)
[2017-07-11 00:24] LABS: BEDSIDE GLUCOSE 198 MG/DL (80-115)
[2017-07-11 00:47] LABS: BEDSIDE GLUCOSE 258 MG/DL (80-115)
[2017-07-11] MEDS: LEVALBUTEROL 1.25 MG/0.5 ML CONCENTRATE NEB INH ×6 (02:49→23:53)
[2017-07-11 05:49] LABS: BASO % 0.1 % (0.0-1.0); HEMATOCRIT 30.4 % (42.0-52.0); IMMATURE GRANULOCYTE % 0.6 % (0-0); LYMPH # 0.9 10^3/uL (1.5-4.5); LYMPH % 12.3 % (24.0-44.0); MEAN CORPUSCULAR HEMOGLOBIN 31.4 pg (27.0-33.0); MEAN CORPUSCULAR HGB CONC 32.9 g/dl (32.0-36.5); MEAN CORPUSCULAR VOLUME 95.6 fl (80.0-96.0); MONO # 0.3 10^3/uL (0.0-0.8); MONO % 4.1 % (0.0-5.0); NEUTROPHILS # 5.8 10^3/uL (1.8-7.7); NEUTROPHILS % 82.9 % (36.0-66.0); RED BLOOD COUNT 3.18 10^6/uL (4.30-6.10); RED CELL DISTRIBUTION WIDTH 15.4 % (11.5-14.5); WHITE BLOOD COUNT 7.1 10^3/uL (4.0-10.0)
[2017-07-11 05:53] LABS: PLATELET COUNT, AUTOMATED 81 10^3/uL (150-450)
[2017-07-11 05:57] LABS: ANION GAP 5 MEQ/L (8-16); BLOOD UREA NITROGEN 17 MG/DL (7-18); CALCIUM LEVEL 8.1 MG/DL (8.8-10.2); CARBON DIOXIDE LEVEL 29 MEQ/L (21-32); CHLORIDE LEVEL 104 MEQ/L (98-107); CREATININE FOR GFR 0.68 MG/DL (0.70-1.30); GLOMERULAR FILTRATION RATE > 60.0 (>49); GLUCOSE, FASTING 187 MG/DL (70-100); SODIUM LEVEL 138 MEQ/L (136-145)
[2017-07-11] MEDS: SLF 3 ML SYR IV ×3 (06:16→20:35)
[2017-07-11] MEDS: SINEMET 25-100 MG TAB GT ×3 (09:02→20:35)
[2017-07-11] MEDS: PARoxetine 20 MG TAB GT (09:02)
[2017-07-11] MEDS: methylPREDNISolone INJ 40 MG/1 ML VIAL (J2920) IV (09:02)
[2017-07-11 12:11] LABS: BEDSIDE GLUCOSE 214 MG/DL (80-115)
[2017-07-11 15:50] LABS: BEDSIDE GLUCOSE 248 MG/DL (80-115)
[2017-07-11] MEDS: LevoFLOXacin 500 MG TABLET PEG (15:52)
[2017-07-11] MEDS: ATORVASTATIN 20 MG TAB GT (20:35)
[2017-07-11] MEDS: OLANZapine 5 MG TAB GT (20:35)
[2017-07-11 23:58] LABS: BEDSIDE GLUCOSE 189 MG/DL (80-115)
[2017-07-12 00:06] LABS: BODY FLUID CULTURE Not Indicated (.); LEGIONELLA ANTIGEN URINE Negative (Negative); ORGANISM ID Not indicated. (.); SPECIMEN SOURCE Urine (.); URINE STREP PNEUMONIAE ANTIGEN Negative (Negative)
[2017-07-12] MEDS: HumaLOG INSULIN (NovoLOG) PER UNIT SC ×3 (00:10→12:29)
[2017-07-12] MEDS: LEVALBUTEROL 1.25 MG/0.5 ML CONCENTRATE NEB INH ×3 (03:24→11:40)
[2017-07-12 03:55] LABS: BEDSIDE GLUCOSE 164 MG/DL (80-115)
[2017-07-12 05:32] LABS: BASO % 0.2 % (0.0-1.0); HEMATOCRIT 32.5 % (42.0-52.0); HEMOGLOBIN 10.7 g/dl (14.0-18.0); IMMATURE GRANULOCYTE # 0.1 10^3/uL (0-0); IMMATURE GRANULOCYTE % 1.3 % (0-0); LYMPH # 1.2 10^3/uL (1.5-4.5); LYMPH % 21.9 % (24.0-44.0); MEAN CORPUSCULAR HEMOGLOBIN 31.1 pg (27.0-33.0); MEAN CORPUSCULAR HGB CONC 32.9 g/dl (32.0-36.5); MEAN CORPUSCULAR VOLUME 94.5 fl (80.0-96.0); MONO # 0.4 10^3/uL (0.0-0.8); MONO % 7.5 % (0.0-5.0); NEUTROPHILS # 3.8 10^3/uL (1.8-7.7); NEUTROPHILS % 69.1 % (36.0-66.0); RED BLOOD COUNT 3.44 10^6/uL (4.30-6.10); RED CELL DISTRIBUTION WIDTH 15.4 % (11.5-14.5); WHITE BLOOD COUNT 5.4 10^3/uL (4.0-10.0)
[2017-07-12 05:36] LABS: PLATELET COUNT, AUTOMATED 91 10^3/uL (150-450)
[2017-07-12 05:37] LABS: IMMATURE PLATELET FRACTION % 3.6 % (0.0-10.9)
[2017-07-12 05:46] LABS: ANION GAP 5 MEQ/L (8-16); BLOOD UREA NITROGEN 19 MG/DL (7-18); CALCIUM LEVEL 8.2 MG/DL (8.8-10.2); CARBON DIOXIDE LEVEL 30 MEQ/L (21-32); CHLORIDE LEVEL 105 MEQ/L (98-107); CREATININE FOR GFR 0.64 MG/DL (0.70-1.30); GLOMERULAR FILTRATION RATE > 60.0 (>49); GLUCOSE, FASTING 169 MG/DL (70-100); SODIUM LEVEL 140 MEQ/L (136-145)
[2017-07-12] MEDS: LevoFLOXacin 500 MG TABLET PEG (06:00)
[2017-07-12] MEDS: SLF 3 ML SYR IV (06:00)
[2017-07-12] MEDS: NYSTATIN 100,000 UNITS/GM TOPICAL PWD 15 GM TOP ×2 (06:22→09:10)
[2017-07-12 07:30] LABS: APPEARANCE, URINE CLEAR (CLEAR); BACTERIA, URINE AUTO NEGATIVE (NEGATIVE); BILIRUBIN, URINE AUTO NEGATIVE (NEGATIVE); BLOOD, URINE BLOOD NEGATIVE (NEGATIVE); COLOR, URINE YELLOW (YELLOW); GLUCOSE, URINE (UA) AUTO NEGATIVE (NEGATIVE); KETONE, URINE AUTO NEGATIVE (NEGATIVE); LEUKOCYTE ESTERASE, URINE AUTO NEGATIVE (NEGATIVE); NITRITE, URINE AUTO NEGATIVE (NEGATIVE); PROTEIN, URINE AUTO NEGATIVE (NEGATIVE); RBC, URINE AUTO 47 /HPF (0-3); SPECIFIC GRAVITY URINE AUTO 1.017 (1.002-1.035); SQUAMOUS EPITHELIAL CELL UR AU 0 /HPF (0-6); WBC, URINE AUTO 1 /HPF (0-3)
[2017-07-12] MEDS: PARoxetine 20 MG TAB GT (09:10)
[2017-07-12] MEDS: SINEMET 25-100 MG TAB GT (09:10)
[2017-07-12] MEDS: predniSONE 20 MG TAB PEG (09:10)
[2017-07-12 12:10] LABS: BEDSIDE GLUCOSE 201 MG/DL (80-115)
== END 2017-07-12 14:14 | disposition home or self-care (01) | DRG 177 ==
LOC: M ED 17:41 → M ED INP 20:53 → M PCU 22:16
DX: J69.0 Pneumonitis due to inhalation of food and vomit (principal); J96.01 Acute respiratory failure with hypoxia; G93.41 Metabolic encephalopathy; K94.23 Gastrostomy malfunction; L89.152 Pressure ulcer of sacral region, stage 2; Q90.9 Down syndrome, unspecified; Z66 Do not resuscitate; E11.9 Type 2 diabetes mellitus without complications; N40.0 Benign prostatic hyperplasia without lower urinary tract symptoms; F32.9 Major depressive disorder, single episode, unspecified; E78.5 Hyperlipidemia, unspecified; G20 Parkinson's disease; G47.30 Sleep apnea, unspecified; Z99.81 Dependence on supplemental oxygen; Z79.899 Other long term (current) drug therapy

== ENCOUNTER 2017-08-21 06:16 | Day surgery (SDC) | payer MEDICARE, MEDICAID ==
[2017-08-21] MEDS ORDERED: LR 1,000 ML IV ×3 (06:30→10:00)
[2017-08-21] MEDS ORDERED: fentaNYL 100 MCG/2 ML INJECTION (J3010) As Ordered (06:44)
[2017-08-21] MEDS ORDERED: MIDAZOLAM INJ 2 MG/2 ML VIAL (J2250) As Ordered (06:45)
[2017-08-21] MEDS ORDERED: PROPOFOL 200 MG/20 ML VIAL As Ordered ×2 (06:50→06:51)
[2017-08-21] MEDS ORDERED: LIDOCAINE 2% INJ 100 MG/5 ML SDV (FOR ANES.) As Ordered (06:50)
[2017-08-21] MEDS ORDERED: ROCURONIUM BROMIDE 50 MG/5 ML VIAL As Ordered (06:51)
[2017-08-21] MEDS ORDERED: dexameTHASONE 4 MG/ML 1ML VIAL (J1100) As Ordered ×2 (06:53→08:28)
[2017-08-21 07:02] LABS: BEDSIDE GLUCOSE 148 MG/DL (80-115)
[2017-08-21] MEDS: CEFAZOLIN SOD 1 GM in APPROPRIATE DILUENT 1 EA IV (08:03)
[2017-08-21] MEDS ORDERED: GLYCOPYRROLATE INJ 0.2 MG/ML 2 ML VIAL As Ordered ×2 (08:28)
[2017-08-21] MEDS ORDERED: NEOSTIGMINE 10 MG/10 ML VIAL (J2710) As Ordered ×2 (08:28)
[2017-08-21] MEDS ORDERED: ONDANSETRON 4MG/2ML VIAL (J2405) As Ordered (08:55)
[2017-08-21] MEDS: BUPIVACAINE/EPIN 0.5% 30 ML VIAL As Ordered (09:20)
[2017-08-21] MEDS ORDERED: fentaNYL 100 MCG/2 ML INJECTION (J3010) IV (10:00)
[2017-08-21] MEDS ORDERED: NORCO, ANEXSIA 5/325MG TABLET (HYDROcodone/ACETAMINOPHEN) PO (10:00)
[2017-08-21] MEDS ORDERED: MORPHINE 4 MG/ML 1ML VIAL (J2270) IV (10:00)
[2017-08-21] MEDS ORDERED: ONDANSETRON 4MG/2ML VIAL (J2405) IV ×2 (10:00)
[2017-08-21] MEDS ORDERED: KETOROLAC 30 MG/ML VIAL (J1885) IV (11:00)
== END 2017-08-21 13:00 | disposition home or self-care (01) ==
LOC: M SDC 06:16
DX: K40.20 Bilateral inguinal hernia, without obstruction or gangrene, not specified as recurrent (principal); E78.00 Pure hypercholesterolemia, unspecified; Z86.14 Personal history of Methicillin resistant Staphylococcus aureus infection; Q90.9 Down syndrome, unspecified; F32.9 Major depressive disorder, single episode, unspecified; F41.9 Anxiety disorder, unspecified; J45.909 Unspecified asthma, uncomplicated; R56.9 Unspecified convulsions; N40.0 Benign prostatic hyperplasia without lower urinary tract symptoms; G20 Parkinson's disease; Z87.09 Personal history of other diseases of the respiratory system; Z88.8 Allergy status to other drugs, medicaments and biological substances; Z79.899 Other long term (current) drug therapy
CPT/HCPCS: 49650

== ENCOUNTER 2017-08-25 13:19 | Emergency (ER) | payer MEDICARE, MEDICAID | END 2017-08-25 16:23 | disposition home or self-care (01) | LOC: M ED 13:19 | DX: J02.9 Acute pharyngitis, unspecified (principal); Z87.01 Personal history of pneumonia (recurrent); F79 Unspecified intellectual disabilities; Z79.899 Other long term (current) drug therapy | CPT/HCPCS: 71045 ==

== ENCOUNTER 2017-11-27 10:21 | Outpatient (RCR) | payer MEDICARE, MEDICAID | END 2017-12-08 | LOC: M ST 10:21 | DX: Z51.89 Encounter for other specified aftercare (principal); R13.10 Dysphagia, unspecified | CPT/HCPCS: 92610 ==

== ENCOUNTER → 2017-12-28 | Outpatient (CLI) | payer MEDICARE, MEDICAID | LOC: M ST 10:14 | DX: R13.13 Dysphagia, pharyngeal phase (principal) | CPT/HCPCS: 74230 ==

== ENCOUNTER → 2018-03-22 | Outpatient (CLI) | payer MEDICARE, MEDICAID | LOC: M LRY 16:07 | DX: I51.7 Cardiomegaly (principal); J98.11 Atelectasis; R91.8 Other nonspecific abnormal finding of lung field; R79.81 Abnormal blood-gas level | CPT/HCPCS: 71045; 94640 ==

== ENCOUNTER → 2018-06-07 | Outpatient (CLI) | payer MEDICARE, MEDICAID ==
[~2018-06-07] MED LIST changes: +FLOM0.4C39 PO; -FLOM5CAP PO; +LEVA1TAB2 PEG; +MIRA3350 GT; -MIRA3350 PO; +PRED10TA2 PO; +SENN8.6T7 GT
--- NOTE | 2018-06-07 12:54 | REP ---
Clinical: Cough. Technique: AP and lateral views. Comparison: 03/22/2018. Findings: Stable cardiomegaly and chronic interstitial changes are appreciated. Trace left basilar atelectasis is suspected. No effusion. No pneumothorax. Skeletal structures demonstrate age-related changes and dextroconvex scoliosis. Impression: Cardiomegaly and chronic changes. Subtle left basilar atelectasis. Electronically Signed by Steven Rossi MD 06/07/2018 12:47 P
== END ==
LOC: M LRY 12:02
PROVIDERS: ATTEND Nurse Practitioner Family
DX: I51.7 Cardiomegaly (principal); J98.11 Atelectasis; R05 Cough
CPT/HCPCS: 71046; G0463

== ENCOUNTER → 2018-08-08 | Outpatient (CLI) | payer MEDICARE, MEDICAID ==
[2018-08-08 13:27] LABS: ALT/SGPT 12 U/L (12-78); BILIRUBIN,TOTAL 1.3 MG/DL (0.2-1.0); BLOOD UREA NITROGEN 19 MG/DL (7-18); CALCIUM LEVEL 8.5 MG/DL (8.8-10.2); CARBON DIOXIDE LEVEL 28 MEQ/L (21-32); CHLORIDE LEVEL 100 MEQ/L (98-107); CREATININE FOR GFR 0.67 MG/DL (0.70-1.30); GLOMERULAR FILTRATION RATE > 60.0 (>49); GLUCOSE, FASTING 152 MG/DL (70-100); POTASSIUM SERUM 4.4 MEQ/L (3.5-5.1); PREALBUMIN 26.4 MG/DL (20.0-40.0); SODIUM LEVEL 136 MEQ/L (136-145); TOTAL PROTEIN 7.3 GM/DL (6.4-8.2)
== END ==
LOC: M LAB 11:44
PROVIDERS: ATTEND Family Medicine
DX: Z93.1 Gastrostomy status (principal)

== ENCOUNTER 2018-11-18 17:23 | Emergency (ER) | payer MEDICARE, MEDICAID ==
[~2018-11-18 17:23] MED LIST changes: -/MOXI40TA PO; -/TAMS4CA; -/TAMS4CA PO; +AVEL1TAB2 PO; +FLOM0.4C39; +SENN1TAB41 GT; +SENN1TAB41 PO; -SENN8.6T7 GT; -SENN8.6T7 PO
[2018-11-18 18:54] LABS: BASO # 0.1 10^3/uL (0.0-0.2); BASO % 1.1 % (0.0-1.0); EOS % 0.4 % (0.0-3.0); HEMATOCRIT 42.3 % (42.0-52.0); HEMOGLOBIN 14.3 g/dl (13.5-17.5); LYMPH # 0.8 10^3/uL (1.5-4.5); LYMPH % 15.1 % (24.0-44.0); MEAN CORPUSCULAR HEMOGLOBIN 32.1 pg (27.0-33.0); MEAN CORPUSCULAR HGB CONC 33.8 g/dl (32.0-36.5); MEAN CORPUSCULAR VOLUME 94.8 fl (80.0-96.0); MONO # 0.6 10^3/uL (0.0-0.8); MONO % 10.8 % (0.0-5.0); NEUTROPHILS # 3.9 10^3/uL (1.8-7.7); NEUTROPHILS % 72.2 % (36.0-66.0); PLATELET COUNT, AUTOMATED 100 10^3/uL (150-450); RED BLOOD COUNT 4.46 10^6/uL (4.30-6.10); WHITE BLOOD COUNT 5.4 10^3/uL (4.0-10.0)
[2018-11-18 19:13] LABS: ALBUMIN 3.2 GM/DL (3.2-5.2); ALT/SGPT 19 U/L (12-78); BILIRUBIN,DIRECT 0.4 MG/DL (0.0-0.2); BILIRUBIN,TOTAL 0.9 MG/DL (0.2-1.0); BLOOD UREA NITROGEN 17 MG/DL (7-18); CALCIUM LEVEL 8.9 MG/DL (8.8-10.2); CARBON DIOXIDE LEVEL 29 MEQ/L (21-32); CHLORIDE LEVEL 98 MEQ/L (98-107); CREATININE FOR GFR 0.67 MG/DL (0.70-1.30); GLOMERULAR FILTRATION RATE > 60.0 (>49); GLUCOSE, FASTING 175 MG/DL (70-100); POTASSIUM SERUM 4.3 MEQ/L (3.5-5.1); SODIUM LEVEL 133 MEQ/L (136-145); TOTAL PROTEIN 7.4 GM/DL (6.4-8.2)
[2018-11-18] MEDS ORDERED: LIDOCAINE 2% 5ML JELLY UROJET TOP ONE (19:45)
--- NOTE | 2018-11-18 20:46 | REPVR ---
EXAM: CT Head Without Contrast EXAM DATE/TIME: 11/18/2018 8:18 PM CLINICAL HISTORY: 63 years old, male; Condition or disease; Convulsions or seizures; Additional info: Sz TECHNIQUE: Imaging protocol: Axial computed tomography images of the head without contrast. Radiation optimization: All CT scans at this facility use at least one of these dose optimization techniques: automated exposure control; mA and/or kV adjustment per patient size (includes targeted exams where dose is matched to clinical indication); or iterative reconstruction. COMPARISON: CT Head without contrast 06/14/2016 7:07 PM FINDINGS: Brain: Chronic infarct right posterior parietal lobe. Mild parenchymal volume loss. Cerebellar atrophy. Ventricles: Disproportionate enlargement of the ventricles may suggest normal pressure hydrocephalus. Bones/joints: Unremarkable. No acute fracture. Sinuses: Visualized sinuses are unremarkable. No fluid levels. Mastoid air cells: Visualized mastoid air cells are well aerated. No mastoid effusion. Soft tissues: Unremarkable. IMPRESSION: Disproportionate enlargement of the ventricles may suggest normal pressure hydrocephalus. Chronic infarct right parietal lobe. Mild parenchymal volume loss. Electronically signed by: Mark Perez On 11/18/2018 20:46:32 PM
[2018-11-18 20:50] LABS: AMPHETAMINES LEVEL URINE NEGATIVE (NEGATIVE); BARBITURATES URINE NEGATIVE (NEGATIVE); BENZODIAZEPINES URINE NEGATIVE (NEGATIVE); CANNABINOIDS URINE NEGATIVE (NEGATIVE); COCAINE METABOLITE URINE NEGATIVE (NEGATIVE); METHADONE URINE NEGATIVE (NEGATIVE); OPIATES URINE NEGATIVE (NEGATIVE); PHENCYCLIDINE URINE NEGATIVE (NEGATIVE)
[2018-11-18] MEDS ORDERED: levETIRAcetam INJection 1,000 MG in D5W 100 ML IV ONE (21:45)
[2018-11-18] MEDS ORDERED: KEPP1SOL PO (22:38)
[2018-11-18 23:00] VITALS: BP 116/62
--- NOTE | 2018-11-19 13:14 | ED PDOC ---
Post-Departure Follow-Up berenice ornelas faxed ct head for fu Karmen Colon MD Nov 19, 2018 13:14
== END 2018-11-18 23:00 | disposition home or self-care (01) ==
LOC: EDBD 17:23 → M ED 17:23
DX: G40.909 Epilepsy, unspecified, not intractable, without status epilepticus (principal); Z79.899 Other long term (current) drug therapy

== ENCOUNTER 2018-11-20 00:50 | Inpatient (IN) | payer MEDICARE, MEDICAID ==
[2018-11-20] VITALS (16 sets, daily range): BP systolic 86–132; BP diastolic 49–77
[~2018-11-20] VITALS: Ht 157.5 cm; Wt 63.2 kg
[~2018-11-20 00:50] MED LIST changes: +KEPP1SOL PO
[2018-11-20] MEDS ORDERED: methylPREDNISolone INJ 125 MG/2 ML VIAL (J2930) IV ONE (01:00)
[2018-11-20 01:11] LABS: BASO # 0.1 10^3/uL (0.0-0.2); BASO % 0.7 % (0.0-1.0); EOS # 0.1 10^3/uL (0.0-0.50); EOS % 0.5 % (0.0-3.0); HEMATOCRIT 45.6 % (42.0-52.0); HEMOGLOBIN 14.9 g/dl (13.5-17.5); LYMPH # 1.7 10^3/uL (1.5-4.5); LYMPH % 16.1 % (24.0-44.0); MEAN CORPUSCULAR HEMOGLOBIN 31.6 pg (27.0-33.0); MEAN CORPUSCULAR HGB CONC 32.7 g/dl (32.0-36.5); MEAN CORPUSCULAR VOLUME 96.8 fl (80.0-96.0); MONO # 0.4 10^3/uL (0.0-0.8); MONO % 4.2 % (0.0-5.0); NEUTROPHILS % 78.2 % (36.0-66.0); PLATELET COUNT, AUTOMATED 138 10^3/uL (150-450); RED BLOOD COUNT 4.71 10^6/uL (4.30-6.10); WHITE BLOOD COUNT 10.3 10^3/uL (4.0-10.0)
[2018-11-20] MEDS: IPRATROPIUM 0.5MG/ALBUTEROL 2.5MG INH SOL UD 3ML (DUONEB)(J7620) NEB PRN ×2 (01:14→02:36)
[2018-11-20 01:16] LABS: ABG BASE EXCESS -0.7 (-2.0-2.0); ABG HCO3 23.5 MEQ/L (22.0-26.0); ABG O2 SATURATION 89.4 % (95.0-99.0); ABG PARTIAL PRESSURE CO2 37.9 mmHg (35.0-45.0); ABG PARTIAL PRESSURE O2 58.3 mmHg (75.0-100.0); ABG STANDARD HCO3 23.7 MEQ/L (22.0-26.0); ABG TOTAL CO2 24.7 MEQ/L (23.0-31.0); ABG pH (ARTERIAL) 7.411 UNITS (7.350-7.450)
[2018-11-20] MEDS ORDERED: CEFEPIME HCL 2 GM in D5W MINI-BAG PLUS 50 ML IV ONE (01:30)
[2018-11-20 01:43] LABS: ALT/SGPT 7 U/L (12-78); BILIRUBIN,DIRECT 0.4 MG/DL (0.0-0.2); BILIRUBIN,TOTAL 1.1 MG/DL (0.2-1.0); BLOOD UREA NITROGEN 18 MG/DL (7-18); CALCIUM LEVEL 8.1 MG/DL (8.8-10.2); CARBON DIOXIDE LEVEL 28 MEQ/L (21-32); CHLORIDE LEVEL 98 MEQ/L (98-107); CPK CREATINE PHOSPHOKINASE 62 U/L (39-308); CREATININE FOR GFR 0.88 MG/DL (0.70-1.30); GLOMERULAR FILTRATION RATE > 60.0 (>49); GLUCOSE, FASTING 185 MG/DL (70-100); MB/CK RELATIVE INDEX 6.45 (< OR =4); NT-PRO BNP 2265 PG/ML (<125); POTASSIUM SERUM 4.3 MEQ/L (3.5-5.1); SODIUM LEVEL 134 MEQ/L (136-145); TOTAL PROTEIN 7.4 GM/DL (6.4-8.2); TROPONIN I 0.11 NG/ML (< 0.10)
[2018-11-20] MEDS ORDERED: NS IV ONE (01:45)
[2018-11-20] MEDS ORDERED: DILUENT IV ONE (01:45)
[2018-11-20] MEDS ORDERED: FUROSEMIDE 40 MG/4 ML VIAL (J1940) IV ONE (02:15)
[2018-11-20] MEDS ORDERED: NS 1,000 ML IV ONE (02:30)
[2018-11-20] MEDS ORDERED: HYDROCORTISONE 100 MG/2 ML VIAL (J1720) IV ONE (02:30)
[2018-11-20] MEDS ORDERED: GUAI20TA GT (02:31)
[2018-11-20] MEDS ORDERED: AQUAOIN12 EXT ×2 (02:31)
[2018-11-20] MEDS ORDERED: CETALIQ EXT ×2 (02:31)
[2018-11-20] MEDS ORDERED: ATOR1TAB21 GT (02:31)
[2018-11-20] MEDS ORDERED: KEPP1SOL GT (02:31)
[2018-11-20] MEDS ORDERED: DEBR6.5S4 AU (02:31)
[2018-11-20] MEDS ORDERED: MIRA1POW3 PO (02:31)
[2018-11-20] MEDS ORDERED: SENN-83 PO (02:31)
[2018-11-20] MEDS ORDERED: VANCOMYCIN HCL 1,000 MG, VIAL MATE ADAPTER 1 EACH in D5W 250 ML IV ONE (03:00)
[2018-11-20] MEDS ORDERED: NS 1,000 ML IV SCH (04:00)
[2018-11-20] MEDS: ACETAMINOPHEN 650 MG SUPP PR PRN (04:17)
--- NOTE | 2018-11-20 05:32 | PHACANCOPD ---
PHARMACY VANCOMYCIN DOSING Pt Demographics Demographics Patient Age:63 , Weight:64.700 , Gender: male Adjusted Body Weight Date: 11/20/18, Adjusted Body Weight: [64.7] KgACTUAL WT Vancomycin Vancomycin indication: SEPSIS/PNEUMONIA Vancomycin Target Ranges: 10-20 mcg/ml Vancomycin Load Y/N: No Load Dose Date Time Vancomycin Load Dose: Date: Time: Vancomycin Dose Date: 11/20/18. Current Vancomycin Dose: [1 GM Q12H] Intermittent Dosing?: No Labs Labs Laboratory Tests 11/20/18 01:02 Red Blood Count 4.71, Mean Corpuscular Volume 96.8 H, Mean Corpuscular Hemoglobin 31.6, Mean Corpuscular Hemoglobin Concent 32.7, Red Cell Distribution Width 16.6 H, Neutrophils (%) (Auto) 78.2 H, Lymphocytes (%) (Auto) 16.1 L, Monocytes (%) (Auto) 4.2, Eosinophils (%) (Auto) 0.5, Basophils (%) (Auto) 0.7, Neutrophils # (Auto) 8.0 H, Lymphocytes # (Auto) 1.7, Monocytes # (Auto) 0.4, Eosinophils # (Auto) 0.1, Basophils # (Auto) 0.1 Micro Microbiology 11/20/18 Blood Culture, Received Pending 11/20/18 Blood Culture, Received Pending Creatinine Clearance Date:11/20/18. Creatinine Clearance: 79.65-CALCULATED Assessment and Plan Maintaining Current Dose?: Yes Reason for dose change: No Dose Change Pharmacist Note Pharmacist Note Date: 11/20/18. Pharmacist note:Admission D/T sepsis/pneumonia,NKDA,SCR=0.88, CRCL=79.65 TX w/ Pip/Tazo 3.375 gm Q6H and Vancomycin per Pharmacy d osing.Vancomycin 1 gm @0400,then will receive 1 gram IV I39Clirt to begin 11/20@1000. First trough is scheduled for 11/21@0900- will continue to follow [facility] Nov 20, 2018 05:32
[2018-11-20 05:33] LABS: ABG BASE EXCESS -2.8 (-2.0-2.0); ABG HCO3 21.3 MEQ/L (22.0-26.0); ABG O2 SATURATION 93.3 % (95.0-99.0); ABG PARTIAL PRESSURE CO2 35.3 mmHg (35.0-45.0); ABG PARTIAL PRESSURE O2 65.4 mmHg (75.0-100.0); ABG TOTAL CO2 22.4 MEQ/L (23.0-31.0); ABG pH (ARTERIAL) 7.399 UNITS (7.350-7.450)
[2018-11-20] MEDS: levETIRAcetam INJection 500 MG in D5W MINI-BAG PLUS 100 ML IV SCH ×2 (05:42→16:53)
[2018-11-20] MEDS: PIPERACILLIN/TAZOBACTAM SOD 3.375 GM in D5W MINI-BAG PLUS 50 ML IV SCH ×4 (06:09→22:59)
[2018-11-20 07:11] LABS: CK-MB VALUE MASS 3.6 NG/ML (<3.6); MB/CK RELATIVE INDEX 6.79 (< OR =4); TROPONIN I 0.15 NG/ML (< 0.10)
--- NOTE | 2018-11-20 07:20 | HPE ---
DATE OF ADMISSION: 11/20/2018 PRIMARY CARE PROVIDER: Dr. Tirso Love CHIEF COMPLAINT: Hypoxia and hypotension. HISTORY OF PRESENT ILLNESS: This patient is a 63-year-old white male with history of Down syndrome and severe dementia, who came from [facility] for above complaints. The patient is very demented and nonverbal. He cannot provide any information, so the information was provided by [facility] ([facility]) staff. Per [facility] ([facility]) staff, he was doing fine until midnight today and he was found to be in respiratory distress, hypoxia His oxygen down to 60s and also his blood pressure was low, so 911 was called and he was brought to the hospital here for the following evaluation. In the emergency room (ER), his temperature was found at 99.9, his oxygen saturation is down to 80s even on the non rebreathe oxygen supplementation He was given intravenous (IV) hydration and Solu-Medrol as well as antibiotics. The medicine service was called for admission. REVIEW OF SYSTEMS: Not available due to dementia. PAST MEDICAL HISTORY: 1. Down syndrome with severe dementia . 2. Benign prostatic hyperplasia (BPH). 3. Type 2 diabetes. 4. Parkinson's disease. 5. History of recurrent aspiration pneumonia. 6. Seep apnea on oxygen at night on 2 liters oxygen. 7. Seizure PAST SURGICAL HISTORY: Percutaneous endoscopic gastrostomy (PEG) tube was placed in 2017. MEDICATIONS: Reviewed. ALLERGIES: No known drug allergies. FAMILY HISTORY: Not available at this moment. SOCIAL HISTORY: No history of tobacco use. No history of alcohol abuse. No illicit drug abuse. He is a [facility] ([facility]) resident. PHYSICAL EXAMINATION: VITAL SIGNS: Temperature 99.9 heart rate 117, respirations 30, blood pressure 80/54, O2 saturation initially 85% up to 90s on long rebreather. GENERAL: He is demented. He is nonverbal. He cannot answer any questions. He does not follow any commands. He is in very severe respiratory distress. HEENT: Atraumatic. Pupils equal, round, reactive to light. No jaundice. Extraocular muscles are intact and ears, nose and throat are normal. Mouth: The mucosa is dry. NECK: No jugular venous distention (JVD) or bruits. LUNGS: Diffuse crackles. HEART: S1, S2, regular, regular but tachycardic. No murmur. ABDOMEN: Soft, bowel sounds positive, nontender. LOWER EXTREMITIES: No edema in bilateral lower extremities. NEUROLOGIC: Nonfocal. SKIN: No rash. PSYCHIATRIC: No acute psychosis. DIAGNOSTIC LAB STUDIES: Include the following: CBC and differential: White blood cell (WBC) 10, hemoglobin and hematocrit (H and H) 15/46, platelets 138. Sodium 134, potassium 4.3 and BUN 18, creatinine 0.8, glucose 185. Lactic acid is 3.1. Chest x-ray is reviewed and showed bilateral possible pneumonia. IMPRESSION: 1. Severe sepsis. 2. Possible aspiration pneumonia. 3. History of Down syndrome with severe dementia. 4. History of Parkinson's disease. 5. Type 2 diabetes. 6. Dysphagia on tubal feedings. 7. Seizure PLAN: The patient will be admitted to the intensive care unit (ICU). we will treat him with intravenous (IV) fluids, IV antibiotics including vancomycin and Zosyn plus IV Cortef. will hold his oral medicines; will start IV Keppra; His is DO NOT RESUSCITATE/DO NOT INTUBATE and his prognosis is guarded; will consult nutrition for tubal feedings and Lovenox will be used for deep vein thrombosis (DVT) prophylaxis. [facility]PITALAbdoulaye
--- NOTE | 2018-11-20 07:57 | REP ---
Portable chest x-ray: Single view. History: Dyspnea and cough. Comparison study: June 07, 2018. Findings: EKG monitoring electrodes and oxygen delivery tubing are seen. Heart is mildly enlarged unchanged. There are fairly extensive infiltrates in the perihilar regions bilaterally left more extensive than right. No pleural effusion is seen. Impression: Bilateral infiltrates consistent with pneumonia. Mildly prominent heart. Electronically Signed by Linden Laird MD 11/20/2018 07:48 A
[2018-11-20] MEDS: ENOXAPARIN 30 MG/0.3 ML SYR (J1650) SC SCH (08:13)
[2018-11-20] MEDS: VANCOMYCIN HCL 1,000 MG, VIAL MATE ADAPTER 1 EACH in D5W 250 ML IV SCH ×2 (09:13→21:52)
--- NOTE | 2018-11-20 13:29 | IPNPDOC ---
Date Seen The patient was seen on 11/20/18. Progress Note SUBJECTIVE: Patient is nonverbal as such much of the history is obtained from his guardians and caregivers from facility for bedside. They state that he is more lethargic and less responsive not his usual self he is not interactive with them overnight otherwise they deny him reporting or any knowledge of chest pain, nausea, vomiting, fevers, chills OBJECTIVE PHYSICAL EXAMINATION: VITAL SIGNS: Please see below. GENERAL: Lethargic pallorous man laying in bed on his right side difficult to awaken does not follow commands or cooperate with exam HEENT: Dry mucous membranes no elevation and CVP, chronic disconjugate gaze CARDIOVASCULAR: S1 S2 tachycardic no additional heart sounds appreciated. RESPIRATORY: Bibasilar Rales and rhonchi throughout. ABDOMINAL: Bowel sounds present abdomen soft and nontender EXTREMITIES: No clubbing cyanosis or edema NEUROLOGICAL: Appears lethargic does not cooperate with neurological testing does not spontaneously move his extremities PSYCHOLOGICAL: [Unable to be assessed at this time LABORATORY DATA, MICROBIOLOGY: Please see below. IMAGING STUDIES: Chest x-ray:Bilateral infiltrates consistent with pneumonia. Mildly prominent heart. ASSESSMENT AND PLAN: This is a 63-year-old man from [facility] with Down syndrome in sepsis secondary to aspiration pneumonia. PROBLEMS: 1. Sepsis secondary to aspiration pneumonia: He is certainly more obtunded than his baseline he has an increased respiratory rate close systolic blood pressure lactic acidosis in the setting of significant acute hypoxic respiratory failure. The clinical history suggestive of aspiration given that he did have a seizure his first life seizure on Sunday and since then he had been more lethargic and gurgling as per his guardians. At this time he is on broad-spectrum empiric antibiotics as well as receiving aggressive IV fluids. I will check a repeat lactic acid as well as continue to trend his troponin. His prognosis is certainly guarded. We'll continue to try and support him as best possible I did a lengthy discussion with his guardians he is a DNR/DNI should he acutely worsen or fail to improve they would strongly consider making him comfort measures only. Given his pre-existing cognitive condition this would require significant paperwork and I have mobilized PFS and made them aware of the situation should it become necessary. We have had a lengthy discussion and agreed with mobility escalating patient's care any further. 2. Seizure: He was evaluated in our emergency room and had a negative CT scan of the head he was started on Keppra he is continued on Keppra IV he has not exhibited any further seizure-like activity. 3. Asthma: Given that he is somewhat hypoxic and aspirated he is normally on nebulizers with albuterol at home I'll provide him with DuoNeb so hospitalized. 4. Parkinson's: Normally on Sinemet when he is able to tolerate her tube medications once again I will restart his Sinemet for the time being given his significant aspiration risk I will hold off on any further tube feeds and medications per tube unless absolutely necessary. 5. Down syndrome: We are holding his Paxil 6. Dyslipidemia: We are holding his statin DVT prophylaxis: And Lovenox DISPOSITION: Critically ill in the medical intensive care unit, prognosis guarded. VS, I&O, 24H, Fishbone Vital Signs/I&O Vital Signs Date Time Temp Pulse Resp B/P (MAP) Pulse Ox O2 Delivery O2 Flow Rate FiO2 11/20/18 12:24 88 93/55 (68) 96 11/20/18 12:00 99.3 27 30.0 100 11/20/18 01:36 Non-Rebreather I&O- Last 24 Hours up to 6 AM 11/20/18 06:00 Intake Total 0 ml Output Total 500 ml Balance -500 ml Laboratory Data 24H LABS Laboratory Tests 2 11/20/18 01:02: Immature Granulocyte % (Auto) 0.3, White Blood Count 10.3H, Red Blood Count 4.71, Hemoglobin 14.9, Hematocrit 45.6, Mean Corpuscular Volume 96.8H, Mean Corpuscular Hemoglobin 31.6, Mean Corpuscular Hemoglobin Concent 32.7, Red Cell Distribution Width 16.6H, Platelet Count 138L, Neutrophils (%) (Auto) 78.2H, Lymphocytes (%) (Auto) 16.1L, Monocytes (%) (Auto) 4.2, Eosinophils (%) (Auto) 0.5, Basophils (%) (Auto) 0.7, Neutrophils # (Auto) 8.0H, Lymphocytes # (Auto) 1.7, Monocytes # (Auto) 0.4, Eosinophils # (Auto) 0.1, Basophils # (Auto) 0.1, Nucleated Red Blood Cells % (auto) 0.0, Anion Gap 8, Glomerular Filtration Rate > 60.0, Lactic Acid Level 3.1*H, Calcium Level 8.1L, Aspartate Amino Transf (AST/SGOT) 20, Alanine Aminotransferase (ALT/SGPT) 7L, Alkaline Phosphatase 77, Total Bilirubin 1.1H, Direct Bilirubin 0.4H, Total Creatine Kinase 62, Creatine Kinase MB 4.0H, Creatine Kinase MB Relative Index 6.45H, Troponin I 0.11H, EL-Sfm-D-Type Natriuretic Peptide 2265H, Total Protein 7.4, Albumin 3.0L, Albumin/Globulin Ratio 0.68L, Thyroid Stimulating Hormone (TSH) 2.490 11/20/18 01:11: Blood Gas Bicarbonate Standard 23.7, Arterial Blood pH 7.411, Arterial Blood Partial Pressure CO2 37.9, Arterial Blood Partial Pressure O2 58.3L, Arterial Blood Total CO2 24.7, Arterial Blood HCO3 23.5, Arterial Blood Base Excess -0.7, Arterial Blood Oxygen Saturation 89.4L 11/20/18 05:15: Blood Gas Bicarbonate Standard 22.0, Arterial Blood pH 7.399, Arterial Blood Partial Pressure CO2 35.3, Arterial Blood Partial Pressure O2 65.4L, Arterial Blood Total CO2 22.4L, Arterial Blood HCO3 21.3L, Arterial Blood Base Excess - 2.8L, Arterial Blood Oxygen Saturation 93.3L 11/20/18 06:31: Total Creatine Kinase 53, Creatine Kinase MB 3.6, Creatine Kinase MB Relative Index 6.79H, Troponin I 0.15#H, Lactic Acid Followup at 4 Hours 2.5*H 11/20/18 11:41: Bedside Glucose (Misc Panel) 231H CBC/BMP Laboratory Tests 11/20/18 01:02 Red Blood Count 4.71, Mean Corpuscular Volume 96.8 H, Mean Corpuscular Hemoglobin 31.6, Mean Corpuscular Hemoglobin Concent 32.7, Red Cell Distribution Width 16.6 H, Neutrophils (%) (Auto) 78.2 H, Lymphocytes (%) (Auto) 16.1 L, Monocytes (%) (Auto) 4.2, Eosinophils (%) (Auto) 0.5, Basophils (%) (Auto) 0.7, Neutrophils # (Auto) 8.0 H, Lymphocytes # (Auto) 1.7, Monocytes # (Auto) 0.4, Eosinophils # (Auto) 0.1, Basophils # (Auto) 0.1 Microbiology Microbiology 11/20/18 Blood Culture, Received Pending 11/20/18 Blood Culture, Received Pending LOLIS POPE MD Nov 20, 2018 13:29
[2018-11-20] MEDS ORDERED: IPRATROPIUM 0.5MG/ALBUTEROL 2.5MG INH SOL UD 3ML (DUONEB)(J7620) NEB PRN (13:30)
[2018-11-20] MEDS: IPRATROPIUM 0.5MG/ALBUTEROL 2.5MG INH SOL UD 3ML (DUONEB)(J7620) NEB SCH ×2 (14:46→19:39)
[2018-11-20] MEDS: LR 1,000 ML IV SCH ×5 (15:47→22:04)
--- NOTE | 2018-11-20 16:17 | ECGEPIP ---
[facility] - ED Test Date: 2018-11-20 Pat Name: BARI SERVIN Department: Room: [place] [address] Gender: Male [employer]: MOE : [id number] Requested By: Blake Heard Order Number: [id number] Reading MD: Gali Salmeron Measurements Intervals [place] Rate: 121 P: 234 CO: 143 QRS: 48 QRSD: 136 T: 127 QT: 334 QTc: 474 Interpretive Statements ECTOPIC ATRIAL TACHYCARDIA LEFT BUNDLE BRANCH BLOCK DECREASED RATE 07/08/17 Electronically Signed on 11-20-2018 16:16:52 EDT by Gali Salmeron
[2018-11-21] VITALS (25 sets, daily range): BP systolic 99–143; BP diastolic 48–78
[2018-11-21] MEDS: IPRATROPIUM 0.5MG/ALBUTEROL 2.5MG INH SOL UD 3ML (DUONEB)(J7620) NEB SCH ×4 (02:43→19:27)
[2018-11-21] MEDS: LR 1,000 ML IV SCH ×3 (03:30→17:53)
[2018-11-21] MEDS: levETIRAcetam INJection 500 MG in D5W MINI-BAG PLUS 100 ML IV SCH ×2 (04:32→17:25)
[2018-11-21 05:06] LABS: HEMATOCRIT 32.4 % (42.0-52.0); MEAN CORPUSCULAR HEMOGLOBIN 31.9 pg (27.0-33.0); MEAN CORPUSCULAR HGB CONC 32.4 g/dl (32.0-36.5); MEAN CORPUSCULAR VOLUME 98.5 fl (80.0-96.0); RED BLOOD COUNT 3.29 10^6/uL (4.30-6.10); WHITE BLOOD COUNT 7.4 10^3/uL (4.0-10.0)
[2018-11-21 05:26] LABS: BLOOD UREA NITROGEN 14 MG/DL (7-18); CALCIUM LEVEL 8.6 MG/DL (8.8-10.2); CARBON DIOXIDE LEVEL 29 MEQ/L (21-32); CHLORIDE LEVEL 103 MEQ/L (98-107); CREATININE FOR GFR 0.78 MG/DL (0.70-1.30); GLOMERULAR FILTRATION RATE > 60.0 (>49); GLUCOSE, FASTING 126 MG/DL (70-100); POTASSIUM SERUM 4.5 MEQ/L (3.5-5.1); SODIUM LEVEL 137 MEQ/L (136-145)
[2018-11-21] MEDS: PIPERACILLIN/TAZOBACTAM SOD 3.375 GM in D5W MINI-BAG PLUS 50 ML IV SCH ×4 (05:32→23:25)
[2018-11-21 05:36] LABS: HEMOGLOBIN 10.5 g/dl (13.5-17.5); PLATELET COUNT, AUTOMATED 65 10^3/uL (150-450)
[2018-11-21 05:53] LABS: ABG BASE EXCESS 1.6 (-2.0-2.0); ABG HCO3 25.7 MEQ/L (22.0-26.0); ABG O2 SATURATION 93.8 % (95.0-99.0); ABG PARTIAL PRESSURE CO2 38.6 mmHg (35.0-45.0); ABG PARTIAL PRESSURE O2 67.1 mmHg (75.0-100.0); ABG STANDARD HCO3 25.9 MEQ/L (22.0-26.0); ABG TOTAL CO2 26.9 MEQ/L (23.0-31.0); ABG pH (ARTERIAL) 7.442 UNITS (7.350-7.450)
[2018-11-21] MEDS: ENOXAPARIN 30 MG/0.3 ML SYR (J1650) SC SCH (09:00)
[2018-11-21] MEDS: VANCOMYCIN HCL 1,000 MG, VIAL MATE ADAPTER 1 EACH in D5W 250 ML IV SCH ×2 (10:00→21:28)
--- NOTE | 2018-11-21 10:41 | IPNPDOC ---
Date Seen The patient was seen on 11/21/18. Progress Note SUBJECTIVE: Patient is nonverbal , once again this morning as such much of the history is obtained from his guardians and caregivers from facility for bedside. They tell me he did have a good night and is looking more like his usual self this morning. otherwise they deny him reporting or any knowledge of chest pain, nausea, vomiting, fevers, chills OBJECTIVE PHYSICAL EXAMINATION: VITAL SIGNS: Please see below. GENERAL: man laying in bed on his right side awake biting his thumb does not follow commands or cooperate with exam HEENT: Moist mucous membranes no elevation and CVP, chronic disconjugate gaze CARDIOVASCULAR: S1 S2 mildly tachycardic no additional heart sounds appreciated. RESPIRATORY: Bibasilar Rales, he is wearing nasal cannula she does not appear to be significantly tachypnic today and appears more comfortable ABDOMINAL: Bowel sounds present abdomen soft and nontender EXTREMITIES: No clubbing cyanosis or edema NEUROLOGICAL: Appears more awake does not cooperate with neurological testing, he spontaneously moves his extremities while I am examining him PSYCHOLOGICAL: Unable to be assessed at this time LABORATORY DATA, MICROBIOLOGY: Please see below. IMAGING STUDIES: Chest x-ray:Bilateral infiltrates consistent with pneumonia. Mildly prominent heart. ASSESSMENT AND PLAN: This is a 63-year-old man from assisted with Down syndrome in sepsis secondary to aspiration pneumonia. PROBLEMS: 1. Sepsis secondary to aspiration pneumonia: Clinical history suspicious of this given a new seizure event on Sunday and lethargy since then followed by profound hypoxia infiltrates in sepsis. He is improving with broad-spectrum antibiotics and IV fluids and lactic acid is normal as his blood pressure is improved I will decrease the rate of his lactated Ringer's attempt to begin weaning his O2 suspect that if he continues to improve with potentially discontinue his Forrester catheter tomorrow. Clinically given his cognitive impairment subtle markers of his clinical progress are certainly improved he is awake he is biting some dose unknown report changes in the direction of him returning to baseline. He is a DNR/DNI. His fever has resolved 2. Seizure: He was evaluated in our emergency room and had a negative CT scan of the head which was suggestive of normal pressure hydrocephalus, I reccomend outpatient NSGY possibly neurology follow up as needed. He was started on Keppra at that time and he is continued on Keppra IV he has not exhibited any further seizure-like activity. 3. Asthma: Given that he is somewhat hypoxic and aspirated he is normally on nebulizers with albuterol at home I am providing him with DuoNeb while hospitalized. 4. Parkinson's: Normally on Sinemet when he is able to tolerate her tube medications, once again I will restart his Sinemet for the time being given his significant aspiration risk I will hold off on any further tube feeds and medications per tube unless absolutely necessary. I hope to resume. As early as tomorrow 5. Down syndrome: We are holding his Paxil 6. Dyslipidemia: We are holding his statin 7. Thrombocytopenia: Secondary to sepsis and dilutional drop in all cell lines related to aggressive IV fluid resuscitation 8. Lactic acidosis: Resolved 9. Anemia: Likely start dilutional drop secondary to aggressive fluid was no evidence of any ongoing bleeding 10. Abnormal troponin: Secondary to demand ischemia in the setting of sepsis could consider outpatient ischemic workup when his acute medical illness has resolved DVT prophylaxis: On hold secondary to thrombocytopenia DISPOSITION: Critically ill in the medical intensive care unit, prognosis improved but remains guarded. VS, I&O, [facility] Vital Signs/I&O Vital Signs Date Time Temp Pulse Resp B/P (MAP) Pulse Ox O2 Delivery O2 Flow Rate FiO2 11/21/18 07:37 96 30.0 50 11/21/18 06:00 96 19 11/21/18 05:34 124/60 (81) 11/21/18 04:00 99.6 11/20/18 01:36 Non-Rebreather I&O- Last 24 Hours up to 6 AM 11/21/18 06:00 Intake Total 6350 ml Output Total 1500 ml Balance 4850 ml Laboratory Data 24H LABS Laboratory Tests 2 11/20/18 11:41: Bedside Glucose (Misc Panel) 231H 11/20/18 13:27: Lactic Acid Level 4.0*H, Troponin I 0.10# 11/20/18 18:29: Bedside Glucose (Misc Panel) 175H 11/20/18 18:37: Troponin I 0.08, Lactic Acid Followup at 4 Hours 4.5*H 11/21/18 01:08: Bedside Glucose (Misc Panel) 114 11/21/18 04:42: Nucleated Red Blood Cells % (auto) 0.0, Immature Platelet Fraction 4.9, Anion Gap 5L, Glomerular Filtration Rate > 60.0, Blood Urea Nitrogen 14, Creatinine 0.78, Sodium Level 137, Potassium Level 4.5, Chloride Level 103, Carbon Dioxide Level 29, Calcium Level 8.6L 11/21/18 04:50: Lactic Acid Level 1.6 11/21/18 06:00: Blood Gas Bicarbonate Standard 25.9, Arterial Blood pH 7.442, Arterial Blood Partial Pressure CO2 38.6, Arterial Blood Partial Pressure O2 67.1L, Arterial Blood Total CO2 26.9, Arterial Blood HCO3 25.7, Arterial Blood Base Excess 1.6, Arterial Blood Oxygen Saturation 93.8L 11/21/18 08:56: Vancomycin Level Trough 14.2 CBC/BMP Laboratory Tests 11/21/18 04:42 Red Blood Count 3.29 L, Mean Corpuscular Volume 98.5 H, Mean Corpuscular Hemoglobin 31.9, Mean Corpuscular Hemoglobin Concent 32.4, Red Cell Distribution Width 16.6 H, Calcium Level 8.6 L Microbiology Microbiology 11/20/18 Blood Culture - Preliminary, Resulted No growth after 24 hours . All specim... 11/20/18 Blood Culture - Preliminary, Resulted No growth after 24 hours . All specim... LOLIS POPE MD Nov 21, 2018 10:41
--- NOTE | 2018-11-21 15:01 | PHACANCOPD ---
PHARMACY VANCOMYCIN DOSING Pt Demographics Demographics Patient Age:63 , Weight:61.000 , Gender: male Adjusted Body Weight Date: 11/20/18, Adjusted Body Weight: [64.7] KgACTUAL WT Vancomycin Vancomycin indication: SEPSIS/PNEUMONIA Vancomycin Target Ranges: 10-20 mcg/ml Vancomycin Load Y/N: No Load Dose Date Time Vancomycin Load Dose: Date: Time: Vancomycin Dose Date: 11/20/18. Current Vancomycin Dose: [1 GM Q12H] Intermittent Dosing?: No Labs Micro Microbiology 11/20/18 Blood Culture - Preliminary, Resulted No growth after 24 hours . All specim... 11/20/18 Blood Culture - Preliminary, Resulted No growth after 24 hours . All specim... Creatinine Clearance Date:11/20/18. Creatinine Clearance: 79.65-CALCULATED Assessment and Plan Maintaining Current Dose?: Yes Reason for dose change: No Dose Change Pharmacist Note Pharmacist Note 11/21/18: Day #2 empiric vancomycin therapy for the treatment of sepsis 2/2 aspiration pneumonia. Vancomycin trough today resulted at 14.2mcg/ml. Scr ed ins stable today at 0.78 from 0.88 yesterday. We will continue the patient on his current regimen of 1g IV Q12H. Blood cultures are negative. We will continue to monitor and draw a follow-up trough level when appropriate. Date: 11/20/18. Pharmacist note:Admission D/T sepsis/pneumonia,NKDA,SCR=0.88, CRCL=79.65 TX w/ Pip/Tazo 3.375 gm Q6H and Vancomycin per Pharmacy dosing.Vancomycin 1 gm @0400,then will receive 1 gram IV [id number] to begin 11/20@1000. First trough is scheduled for 11/21@0900- will continue to follow [facility] Nov 21, 2018 15:01
[2018-11-21] MEDS: ACETAMINOPHEN 650 MG SUPP PR PRN (21:29)
[2018-11-22] VITALS (25 sets, daily range): BP systolic 87–131; BP diastolic 46–83
[2018-11-22] MEDS: IPRATROPIUM 0.5MG/ALBUTEROL 2.5MG INH SOL UD 3ML (DUONEB)(J7620) NEB SCH ×5 (01:38→23:07)
[2018-11-22] MEDS: LR 1,000 ML IV SCH (04:03)
[2018-11-22] MEDS: levETIRAcetam INJection 500 MG in D5W MINI-BAG PLUS 100 ML IV SCH ×2 (04:22→17:08)
[2018-11-22] MEDS: PIPERACILLIN/TAZOBACTAM SOD 3.375 GM in D5W MINI-BAG PLUS 50 ML IV SCH ×4 (06:06→23:47)
[2018-11-22 08:03] LABS: HEMATOCRIT 34.5 % (42.0-52.0); HEMOGLOBIN 11.1 g/dl (13.5-17.5); MEAN CORPUSCULAR HEMOGLOBIN 31.4 pg (27.0-33.0); MEAN CORPUSCULAR HGB CONC 32.2 g/dl (32.0-36.5); MEAN CORPUSCULAR VOLUME 97.5 fl (80.0-96.0); RED BLOOD COUNT 3.54 10^6/uL (4.30-6.10); WHITE BLOOD COUNT 7.7 10^3/uL (4.0-10.0)
[2018-11-22 08:08] LABS: PLATELET COUNT, AUTOMATED 77 10^3/uL (150-450)
[2018-11-22 08:42] LABS: ALBUMIN 2.1 GM/DL (3.2-5.2); ALT/SGPT 20 U/L (12-78); BILIRUBIN,TOTAL 1.3 MG/DL (0.2-1.0); BLOOD UREA NITROGEN 9 MG/DL (7-18); CALCIUM LEVEL 8.6 MG/DL (8.8-10.2); CARBON DIOXIDE LEVEL 30 MEQ/L (21-32); CHLORIDE LEVEL 100 MEQ/L (98-107); CREATININE FOR GFR 0.68 MG/DL (0.70-1.30); GLOMERULAR FILTRATION RATE > 60.0 (>49); GLUCOSE, FASTING 133 MG/DL (70-100); POTASSIUM SERUM 3.5 MEQ/L (3.5-5.1); SODIUM LEVEL 136 MEQ/L (136-145); TOTAL PROTEIN 6.3 GM/DL (6.4-8.2)
--- NOTE | 2018-11-22 09:36 | REP ---
CHEST PORTABLE: AP portable view of the chest is performed and demonstrates a large left pleural effusion, which is new compared to the prior study of 11/20/2018. There is adjacent dense infiltrate in the visualized left lung, which appears worse than the prior study. There is increased infiltrate in the right lung base. The heart size is not well evaluated. Electronically Signed by Tirso Pickering MD 11/22/2018 07:24 P
[2018-11-22] MEDS: VANCOMYCIN HCL 1,000 MG, VIAL MATE ADAPTER 1 EACH in D5W 250 ML IV SCH ×2 (10:05→21:19)
[2018-11-22] MEDS ORDERED: FUROSEMIDE 20 MG/2 ML VIAL (J1940) IV ONE ×2 (11:00→17:30)
--- NOTE | 2018-11-22 11:02 | IPNPDOC ---
Date Seen The patient was seen on 11/22/18. Progress Note SUBJECTIVE: Patient is nonverbal and as such the interval history is obtained by his guardians software development leader nursing staff. He reportedly became somewhat more hypoxic overnight was frequent desaturations, he has also become more lethargic and more difficult to arouse. He is no longer biting his summer doing his usual activities which she had been doing briefly yesterday. Otherwise they deny him r eporting or any knowledge of chest pain, nausea, vomiting. He was noted once again to have fevers overnight OBJECTIVE PHYSICAL EXAMINATION: VITAL SIGNS: Please see below. GENERAL: man laying in bed on his back lethargic difficult to arouse does not follow commands or cooperate with exam HEENT: Moist mucous membranes some elevation in CVP, chronic disconjugate gaze CARDIOVASCULAR: S1 S2 mildly tachycardic no additional heart sounds appreciated. RESPIRATORY: Bibasilar Rales, he is wearing nasal cannula he does appear to be more tachypnic today ABDOMINAL: Bowel sounds present abdomen soft and nontender EXTREMITIES: No clubbing cyanosis or edema NEUROLOGICAL: Appears more lethargic and does cooperate with neurological testing PSYCHOLOGICAL: Unable to be assessed at this time LABORATORY DATA, MICROBIOLOGY: Please see below. IMAGING STUDIES: Chest x-ray:Bilateral infiltrates consistent with pneumonia. Mildly prominent heart. ASSESSMENT AND PLAN: This is a 63-year-old man from [facility] with Down syndrome in sepsis secondary to aspiration pneumonia. PROBLEMS: 1. Sepsis secondary to aspiration pneumonia: Clinical history suspicious of this given a new seizure event on Sunday and lethargy since then followed by profound hypoxia infiltrates in sepsis. Yesterday he did appear to be improving however overnight he appears to have decompensated once again with more hypoxia and fevers and more lethargic. I do have concern that he may have reaspirated versus be going into pulmonary edema from significant fluid resuscitation during his initial sepsis presentation. I'll check a stat chest x-ray discontinue IV fluids consider trial of Lasix should his blood pressure lowered check a lactic acid. I have spoken with his caregiver and guardian bedside were open to these measures understand his very fragile state he may not survive the day. He is a DNR/DNI should he be unable to improve or worsen they do not want to escalate care further with strongly consider keeping him comfortable only this is their wishes expressed to me. 2. Seizure: He was evaluated in our emergency room and had a negative CT scan of the head which was suggestive of normal pressure hydrocephalus, I previously recommended outpatient NSGY possibly neurology evaluation as needed. He was started on Keppra at that time and he is continued on Keppra IV he has not exhibited any further seizure-like activity. 3. Asthma: Given that he is somewhat hypoxic and aspirated he is normally on nebulizers with albuterol at home I am providing him with DuoNeb while hospitalized. 4. Parkinson's: Normally on Sinemet when he is able to tolerate her tube medications, once again I will restart his Sinemet for the time being given his significant aspiration risk I will hold off on any further tube feeds and medications per tube unless absolutely necessary. I hope to resume. As early as tomorrow 5. Down syndrome: We are holding his Paxil 6. Dyslipidemia: We are holding his statin 7. Thrombocytopenia: Secondary to sepsis and dilutional drop in all cell lines related to aggressive IV fluid resuscitation 8. Lactic acidosis: Resolved 9. Anemia: Likely start dilutional drop secondary to aggressive fluid was no evidence of any ongoing bleeding 10. Abnormal troponin: Secondary to demand ischemia in the setting of sepsis could consider outpatient ischemic workup when his acute medical illness has resolved DVT prophylaxis: On hold secondary to thrombocytopenia DISPOSITION: Critically ill in the medical intensive care unit, prognosis quite guarded at this time. VS, I&O, 24H, Fishbone Vital Signs/I&O Vital Signs Date Time Temp Pulse Resp B/P (MAP) Pulse Ox O2 Delivery O2 Flow Rate FiO2 11/22/18 08:00 88 40.0 100 11/22/18 06:00 99.7 89 22 116/54 (74) 11/20/18 01:36 Non-Rebreather I&O- Last 24 Hours up to 6 AM 11/22/18 06:00 Intake Total 3600 ml Output Total 1625 ml Balance 1975 ml Laboratory Data 24H LABS Laboratory Tests 2 11/21/18 12:46: Bedside Glucose (Misc Panel) 136H 11/21/18 17:55: Bedside Glucose (Misc Panel) 147H 11/22/18 00:11: Bedside Glucose (Misc Panel) 162H 11/22/18 05:31: Bedside Glucose (Misc Panel) 156H 11/22/18 07:39: Nucleated Red Blood Cells % (auto) 0.0, Immature Platelet Fraction 7.0, Anion Gap 6L, Glomerular Filtration Rate > 60.0, Lactic Acid Level 1.7, Blood Urea Nitrogen 9, Creatinine 0.68L, Sodium Level 136, Potassium Level 3.5#, Chloride Level 100, Carbon Dioxide Level 30, Calcium Level 8.6L, Aspartate Amino Transf (AST/SGOT) 34, Alanine Aminotransferase (ALT/SGPT) 20, Alkaline Phosphatase 34L, Total Bilirubin 1.3H, Total Protein 6.3L, Albumin 2.1#L, Albumin/Globulin Ratio 0.50L CBC/BMP Laboratory Tests 11/22/18 07:39 Red Blood Count 3.54 L, Mean Corpuscular Volume 97.5 H, Mean Corpuscular Hemoglobin 31.4, Mean Corpuscular Hemoglobin Concent 32.2, Red Cell Distribution Width 16.3 H, Calcium Level 8.6 L, Aspartate Amino Transf (AST/SGOT) 34, Alanine Aminotransferase (ALT/SGPT) 20, Alkaline Phosphatase 34 L, Total Bilirubin 1.3 H, Total Protein 6.3 L, Albumin 2.1 #L Microbiology Microbiology 11/20/18 Blood Culture - Preliminary, Resulted No Growth after 48 hours. All Specime... 11/20/18 Blood Culture - Preliminary, Resulted No Growth after 48 hours. All Specime... LOLIS POPE MD Nov 22, 2018 11:02
[2018-11-22 12:51] LABS: MAGNESIUM LEVEL 1.8 MG/DL (1.8-2.4)
[2018-11-22] MEDS ORDERED: POTASSIUM CHLORIDE 10% LIQ 20 MEQ/15 ML UDC PO ONE (13:00)
[2018-11-22] MEDS: SINEMET 25-100 MG TAB GT SCH ×2 (14:13→18:55)
[2018-11-22] MEDS ORDERED: FUROSEMIDE 40 MG/4 ML VIAL (J1940) IV STA (23:42)
[2018-11-23] VITALS (75 sets, daily range): BP systolic 65–133; BP diastolic 42–95
[2018-11-23 04:35] LABS: HEMATOCRIT 34.4 % (42.0-52.0); HEMOGLOBIN 11.3 g/dl (13.5-17.5); MEAN CORPUSCULAR HEMOGLOBIN 31.5 pg (27.0-33.0); MEAN CORPUSCULAR HGB CONC 32.8 g/dl (32.0-36.5); MEAN CORPUSCULAR VOLUME 95.8 fl (80.0-96.0); PLATELET COUNT, AUTOMATED 87 10^3/uL (150-450); RED BLOOD COUNT 3.59 10^6/uL (4.30-6.10); WHITE BLOOD COUNT 6.1 10^3/uL (4.0-10.0)
[2018-11-23 05:00] LABS: BLOOD UREA NITROGEN 8 MG/DL (7-18); CALCIUM LEVEL 7.8 MG/DL (8.8-10.2); CARBON DIOXIDE LEVEL 34 MEQ/L (21-32); CHLORIDE LEVEL 96 MEQ/L (98-107); CREATININE FOR GFR 0.76 MG/DL (0.70-1.30); GLOMERULAR FILTRATION RATE > 60.0 (>49); GLUCOSE, FASTING 158 MG/DL (70-100); MAGNESIUM LEVEL 1.4 MG/DL (1.8-2.4); POTASSIUM SERUM 3.1 MEQ/L (3.5-5.1); SODIUM LEVEL 136 MEQ/L (136-145)
[2018-11-23] MEDS: levETIRAcetam INJection 500 MG in D5W MINI-BAG PLUS 100 ML IV SCH ×2 (05:30→16:11)
[2018-11-23] MEDS: SINEMET 25-100 MG TAB GT SCH ×3 (06:14→18:19)
[2018-11-23] MEDS: PIPERACILLIN/TAZOBACTAM SOD 3.375 GM in D5W MINI-BAG PLUS 50 ML IV SCH ×3 (06:14→18:19)
[2018-11-23] MEDS ORDERED: POTASSIUM CHLORIDE 10 MEQ SR TABLET PO ONE (06:45)
[2018-11-23] MEDS ORDERED: DIGOXIN INJ 0.5 MG/2 ML AMP (J1160) IV STA ×2 (06:57→08:08)
[2018-11-23] MEDS ORDERED: DIGOXIN INJ 0.5 MG/2 ML AMP (J1160) As Ordered ONE ×2 (06:58→08:08)
[2018-11-23] MEDS: MAG SULF 1GM/100ML (MAG RUN) 1 GM in APPROPRIATE DILUENT 1 EA IV SCH ×2 (07:06→08:16)
[2018-11-23] MEDS ORDERED: MAG SULF 1GM/100ML (MAG RUN) 1 GM in APPROPRIATE DILUENT 1 EA IV STA (07:11)
[2018-11-23] MEDS ORDERED: LR 1,000 ML IV ONE (07:45)
[2018-11-23] MEDS ORDERED: POTASSIUM CHLORIDE 10% LIQ 20 MEQ/15 ML UDC PO ONE (08:00)
[2018-11-23] MEDS: IPRATROPIUM 0.5MG/ALBUTEROL 2.5MG INH SOL UD 3ML (DUONEB)(J7620) NEB SCH ×3 (08:00→18:22)
[2018-11-23] MEDS: VANCOMYCIN HCL 1,000 MG, VIAL MATE ADAPTER 1 EACH in D5W 250 ML IV SCH ×2 (10:39→22:10)
--- NOTE | 2018-11-23 12:09 | IPNPDOC ---
Date Seen The patient was seen on 11/23/18. Progress Note SUBJECTIVE: Patient is nonverbal this morning he opens eyes and makes eye contact with his guardian. She tells me that he had a difficult night and slept most of it he is coughing intermittently and appears uncomfortable as per her observation. Overnight early this a.m. the patient did convert to a atrial fibrillation with rapid ventricular response OBJECTIVE PHYSICAL EXAMINATION: VITAL SIGNS: Please see below. GENERAL: man laying in bed on his back eyes were open does not follow commands or cooperate with exam HEENT: Moist mucous membranes some elevation in CVP, chronic disconjugate gaze CARDIOVASCULAR: S1 S2 tachycardic no additional heart sounds appreciated. RESPIRATORY: Bibasilar Rales, he is wearing nasal cannula he does appear to be tachypnic today ABDOMINAL: Bowel sounds present abdomen soft and nontender EXTREMITIES: No clubbing cyanosis or edema NEUROLOGICAL: Appears lethargic and does cooperate with neurological testing PSYCHOLOGICAL: Unable to be assessed at this time LABORATORY DATA, MICROBIOLOGY: Please see below. IMAGING STUDIES: Chest x-ray:Bilateral infiltrates consistent with pneumonia. Mildly prominent h eart. ASSESSMENT AND PLAN: This is a 63-year-old man from [facility] with Down syndrom e in sepsis secondary to aspiration pneumonia. PROBLEMS: 1. Sepsis secondary to aspiration pneumonia: He's become hypotensive persistently hypoxic and newly in atrial fibrillation with rapid ventricular response. Despite aggressive medical interventions he does appear to be worsening. I will provide him with digoxin 0.5 mg load continue with his Cardizem drip. We'll proceed quite cautiously given his hypotensive. The patient's guardian who is bedside requested he be made comfort measures only he'll is already a DNR/DNI. I did inform I'll begin the paperwork check list provided by [employer] for filing as soon as possible. I did speak with [employer] late yesterday and also again today who informed me the paperwork will likely unable to be completed until Sunday possibly. The patient's guardian expresses great displeasure at the site of her loved one undergoing prolonged suffering due to her perceived appear grossly. I do not disagree with her assessment and informed her that the patient is a DNR/DNI otherwise we will continue to treat including adequately addressing his dyspnea and pain. I will provide him with IV morphine every 2 hours when necessary given he is unable to tolerate anything by mouth or per tube at this time and appears to have worsened pneumonia despite h olding tube feeds and being nothing by mouth. His recurrent aspirations despite this and history of recurrent aspirations in the recent past and his current septic appearance make his overall prognosis is extremely poor and I do agree he is comfort measures only appropriate. For the time being we'll continue to provide critical care and monitoring as well as interventions in the medical intensive care unit. 2. Seizure: He was evaluated in our emergency room and had a negative CT scan of the head which was suggestive of normal pressure hydrocephalus, I previously recommended outpatient NSGY possibly neurology evaluation as needed however given his critical illness at this time I'm unsure he will make it for any such evaluation. I do not think they're playing an active role in his current p resentation. He was started on Keppra at that time and he is continued on Keppra IV he has not exhibited any further seizure-like activity. 3. Asthma: Given that he is somewhat hypoxic and aspirated he is normally on nebulizers with albuterol at home I am providing him with DuoNeb while hospitalized. 4. Parkinson's: on Sinemet 5. Down syndrome: We are holding his Paxil, he appears to have progressively worsening dysphagia with recurrent aspirations despite G tube feed placement 6. Dyslipidemia: We are holding his statin 7. Thrombocytopenia: Secondary to sepsis and dilutional drop in all cell lines related to aggressive IV fluid resuscitation 10. Abnormal troponin: Secondary to demand ischemia in the setting of sepsis could consider outpatient ischemic workup if and when his acute medical illness has resolved DVT prophylaxis: On hold secondary to thrombocytopenia DISPOSITION: Critically ill in the medical intensive care unit, prognosis poor with anticipated mortality, lengthy discussions had with patient's guardians caregivers all questions answered to their satisfaction. VS, I&O, 24H, Fishbone Vital Signs/I&O Vital Signs Date Time Temp Pulse Resp B/P (MAP) Pulse Ox O2 Delivery O2 Flow Rate FiO2 11/23/18 08:11 138 11/23/18 08:00 98.5 42 73/52 (59) 92 40.0 100 11/20/18 01:36 Non-Rebreather I&O- Last 24 Hours up to 6 AM 11/23/18 06:00 Intake Total 1350 ml Output Total 4325 ml Balance -2975 ml Laboratory Data 24H LABS Laboratory Tests 2 11/22/18 17:48: Bedside Glucose (Misc Panel) 156H 11/23/18 00:36: Bedside Glucose (Misc Panel) 155H 11/23/18 04:24: Nucleated Red Blood Cells % (auto) 0.0, Anion Gap 6L, Glomerular Filtration Rate > 60.0, Blood Urea Nitrogen 8, Creatinine 0.76, Sodium Level 136, Potassium Level 3.1L, Chloride Level 96L, Carbon Dioxide Level 34H, Calcium Level 7.8L, Magnesium Level 1.4L 11/23/18 06:33: Bedside Glucose (Misc Panel) 165H 11/23/18 09:00: Vancomycin Level Trough 14.2 CBC/BMP Laboratory Tests 11/23/18 04:24 Red Blood Count 3.59 L, Mean Corpuscular Volume 95.8, Mean Corpuscular Hemoglobin 31.5, Mean Corpuscular Hemoglobin Concent 32.8, Red Cell Distribution Width 15.9 H, Calcium Level 7.8 L Microbiology Microbiology 11/20/18 Blood Culture - Preliminary, Resulted No Growth after 72 hours. All specime... 11/20/18 Blood Culture - Preliminary, Resulted No Growth after 72 hours. All specime... LOLIS POPE MD Nov 23, 2018 12:09
[2018-11-23] MEDS: diltiaZEM 125 MG in NS 100 ML IV SCH (12:32)
[2018-11-23] MEDS: SCOPOLAMINE 1MG TRANSDERMAL PATCH TOP PRN (14:10)
[2018-11-23] MEDS: MORPHINE 4 MG/ML 1ML VIAL/SYRINGE (J2270) IV PRN ×4 (14:11→22:17)
[2018-11-23] MEDS ORDERED: FUROSEMIDE 20 MG/2 ML VIAL (J1940) IV ONE (19:00)
[2018-11-23] MEDS ORDERED: MORPHINE 4 MG/ML 1ML VIAL/SYRINGE (J2270) IV PRN (23:00)
[2018-11-24] VITALS (26 sets, daily range): BP systolic 86–113; BP diastolic 47–58
[2018-11-24] MEDS: MORPHINE 4 MG/ML 1ML VIAL/SYRINGE (J2270) IV PRN ×9 (00:01→20:44)
[2018-11-24] MEDS: PIPERACILLIN/TAZOBACTAM SOD 3.375 GM in D5W MINI-BAG PLUS 50 ML IV SCH ×5 (00:01→23:59)
[2018-11-24] MEDS: levETIRAcetam INJection 500 MG in D5W MINI-BAG PLUS 100 ML IV SCH ×2 (04:54→18:01)
[2018-11-24] MEDS: SINEMET 25-100 MG TAB GT SCH ×3 (05:11→18:01)
[2018-11-24] MEDS: IPRATROPIUM 0.5MG/ALBUTEROL 2.5MG INH SOL UD 3ML (DUONEB)(J7620) NEB SCH ×3 (07:29→18:25)
[2018-11-24] MEDS: MAG SULF 1GM/100ML (MAG RUN) 1 GM in APPROPRIATE DILUENT 1 EA IV SCH (07:41)
[2018-11-24] MEDS: diltiaZEM 125 MG in NS 100 ML IV SCH ×2 (09:21→13:30)
[2018-11-24] MEDS: VANCOMYCIN HCL 1,000 MG, VIAL MATE ADAPTER 1 EACH in D5W 250 ML IV SCH ×2 (10:08→22:40)
--- NOTE | 2018-11-24 13:41 | ECGEPIP ---
[facility] Test Date: 2018-11-23 Pat Name: BARI SERVIN Department: Room: [place] [address] Gender: Male Addiction Social Worker: LAURA : 1955 Requested By: GRIFFIN GARCIA Order Number: [id number] Reading MD: Stef Yepez Measurements Intervals [place] Rate: 170 P: VT: -1 QRS: QRSD: 148 T: 116 QT: 287 QTc: 483 Interpretive Statements Suspect atrial fibrillation with RVR with occasional ectopy. LEFT BUNDLE BRANCH BLOCK as previously noted in tracing 11-20-18 Electronically Signed on 11-24-2018 13:41:51 EDT by Stef Yepez
--- NOTE | 2018-11-24 17:11 | IPNPDOC ---
Date Seen The patient was seen on 11/24/18. Progress Note SUBJECTIVE: Patient is nonverbal. His guardians are bedside today and for me that he had a fairly eventful evening and resting peacefully. OBJECTIVE PHYSICAL EXAMINATION: VITAL SIGNS: Please see below. GENERAL: man laying in bed on his back sleeping peacefully difficult to arouse appears pale HEENT: Moist mucous membranes some elevation in CVP, chronic disconjugate gaze CARDIOVASCULAR: S1 S2 tachycardic no additional heart sounds appreciated. RESPIRATORY: Bibasilar Rales, he is wearing nasal cannula he does appear to be mildly tachypnic today ABDOMINAL: Bowel sounds present abdomen soft and nontender EXTREMITIES: No clubbing cyanosis or edema NEUROLOGICAL: Appears fatigued and does cooperate with neurological testing PSYCHOLOGICAL: Unable to be assessed at this time LABORATORY DATA, MICROBIOLOGY: Please see below. IMAGING STUDIES: Chest x-ray:Bilateral infiltrates consistent with pneumonia. Mildly prominent heart. ASSESSMENT AND PLAN: This is a 63-year-old man from [facility] with Down syndrome in sepsis secondary to aspiration pneumonia. PROBLEMS: 1. Sepsis secondary to aspiration pneumonia: Lengthy discussions had previously with guardians caregivers despite aggressive medical interventions he is failing to improve. His guardians have asked that given his poor prognosis for recurrent aspirations despite being nothing by mouth and with the feeding tube they have requested that his status be changed from DNR/DNI to comfort measures only. In the process of completing this paperwork I have completed my part of it as has her trailer chief as a concurring physician. We suspect the paperwork in order to formally transitioned to status may likely be completed on Sunday or Sunday possibly. The patient's guardian expressed great displeasure at the sight of there loved one undergoing prolonged suffering due to pending paperwor k. I do not disagree with her assessment and informed her that the patient is a DNR/DNI we will continue to treat including adequately addressing his dyspnea and pain. Given he is unable to tolerate anything by mouth or per tube at this time and appears to have worsened pneumonia despite holding tube feeds and being nothing by mouth. His recurrent aspirations despite this and history of recurrent aspirations in the recent past and his current septic appearance make his overall prognosis is extremely poor and I do agree he is comfort measures only appropriate. For the time being we'll continue to provide critical care and monitoring as well as interventions in the medical intensive care unit. 2. Seizure: He was evaluated in our emergency room and had a negative CT scan of the head which was suggestive of normal pressure hydrocephalus, I previously recommended outpatient NSGY possibly neurology evaluation as needed however given his critical illness at this time I do not for see he will make it for any such evaluation. I do not think they're playing an active role in his current presentation. He was started on Keppra at that time and he is continued on Keppra IV he has not exhibited any further seizure-like activity. 3. Asthma: Given that he is somewhat hypoxic and aspirated he is normally on nebulizers with albuterol at home I am providing him with DuoNeb while hospitalized. 4. Parkinson's: on Sinemet 5. Down syndrome: We are holding his Paxil, he appears to have progressively worsening dysphagia with recurrent aspirations despite G tube feed placement 6. Dyslipidemia: We are holding his statin 7. Thrombocytopenia: Secondary to sepsis and critical illness 10. Abnormal troponin: Secondary to demand ischemia in the setting of critical illness DVT prophylaxis: On hold secondary to thrombocytopenia DISPOSITION: Critically ill in the medical intensive care unit, prognosis poor with anticipated mortality, lengthy discussions had with patient's guardians caregivers all questions answered to their satisfaction once again this morning. VS, I&O, 24H, Fishbone Vital Signs/I&O Vital Signs Date Time Temp Pulse Resp B/P (MAP) Pulse Ox O2 Delivery O2 Flow Rate FiO2 11/24/18 16:00 98.2 106 32 96/50 (65) 92 40.0 100 11/20/18 01:36 Non-Rebreather I&O- Last 24 Hours up to 6 AM 11/24/18 06:00 Intake Total 1227.5 ml Output Total 600 ml Balance 627.5 ml Laboratory Data 24H LABS Laboratory Tests 2 11/23/18 18:17: Bedside Glucose (Misc Panel) 143H 11/24/18 05:34: Bedside Glucose (Misc Panel) 159H 11/24/18 12:43: Bedside Glucose (Misc Panel) 130H Microbiology Microbiology 11/20/18 Blood Culture - Preliminary, Resulted No Growth after 72 hours. All specime... 11/20/18 Blood Culture - Preliminary, Resulted No Growth after 72 hours. All specime... LOLIS POPE MD Nov 24, 2018 17:10
[2018-11-25] VITALS (12 sets, daily range): BP systolic 86–133; BP diastolic 49–79
[2018-11-25] MEDS: MORPHINE 4 MG/ML 1ML VIAL/SYRINGE (J2270) IV PRN ×9 (00:09→23:56)
[2018-11-25] MEDS: IPRATROPIUM 0.5MG/ALBUTEROL 2.5MG INH SOL UD 3ML (DUONEB)(J7620) NEB SCH ×3 (02:00→14:00)
[2018-11-25] MEDS: levETIRAcetam INJection 500 MG in D5W MINI-BAG PLUS 100 ML IV SCH ×2 (04:59→17:00)
[2018-11-25] MEDS: SINEMET 25-100 MG TAB GT SCH ×3 (05:40→18:11)
[2018-11-25] MEDS: PIPERACILLIN/TAZOBACTAM SOD 3.375 GM in D5W MINI-BAG PLUS 50 ML IV SCH ×2 (07:00→11:51)
[2018-11-25] MEDS: VANCOMYCIN HCL 1,000 MG, VIAL MATE ADAPTER 1 EACH in D5W 250 ML IV SCH (10:10)
--- NOTE | 2018-11-25 11:10 | IPNPDOC ---
Date Seen The patient was seen on 11/25/18. Progress Note SUBJECTIVE: Patient is nonverbal. His guardians are bedside today and they state that overnight he had some mild difficulty with breathing but nursing staff were able to intervene and he is doing better now OBJECTIVE PHYSICAL EXAMINATION: VITAL SIGNS: Please see below. GENERAL: man laying in bed on his back sleeping peacefully difficult to arouse appears pale HEENT: Moist mucous membranes some elevation in CVP, chronic disconjugate gaze CARDIOVASCULAR: S1 S2 mildly tachycardic no additional heart sounds appreciated. RESPIRATORY: Bibasilar Rales, he is wearing nasal cannula he does appear to be mildly tachypnic today, diffuse rhonci ABDOMINAL: Bowel sounds present abdomen soft and nontender EXTREMITIES: No clubbing cyanosis or edema NEUROLOGICAL: Appears fatigued and does cooperate with neurological testing PSYCHOLOGICAL: Unable to be assessed at this time LABORATORY DATA, MICROBIOLOGY: Please see below. IMAGING STUDIES: Chest x-ray:Bilateral infiltrates consistent with pneumonia. Mildly prominent heart. ASSESSMENT AND PLAN: This is a 63-year-old [place] with Down syndrome in sepsis secondary to aspiration pneumonia. PROBLEMS: 1. Sepsis secondary to aspiration pneumonia: Lengthy discussions had previously with guardians caregivers despite aggressive medical interventions he is failing to improve. His guardians have asked that given his poor prognosis for recurrent aspirations despite being nothing by mouth and with the feeding tube they have requested that his status be changed from DNR/DNI to comfort measures only. In the process of completing this paperwork I have completed my part of it as has our chief resource officer as a concurring physician. We suspect the paperwork in order to formally transitioned to status may likely be completed in the near future. The patient's guardian expressed great displeasure at the sight of there loved one undergoing prolonged suffering due to pending paperwork. I do not disagree with her assessment and informed her that the patient is a DNR/DNI we will continue to treat including adequately addressing his dyspnea and pain. Given he is unable to tolerate anything by mouth or per tube at this time and appears to have worsened pneumonia despite holding tube feeds and being nothing by mouth. His recurrent aspirations despite this and history of recurrent aspirations in the recent past and his current septic appearance make his overall prognosis extremely poor and I do agree he is comfort measures only appropriate. For the time being we'll continue to provide critical care and monitoring as well as interventions in the medical intensive care unit. 2. Seizure: He was evaluated in our emergency room and had a negative CT scan of the head which was suggestive of normal pressure hydrocephalus, I previously recommended outpatient NSGY possibly neurology evaluation as needed however given his critical illness at this time I do not for see he will make it for any such evaluation. I do not think they're playing an active role in his current presentation. He was started on Keppra at that time and he is continued on Keppra IV he has not exhibited any further seizure-like activity. 3. Asthma: Given that he is somewhat hypoxic and aspirated he is normally on nebulizers with albuterol at home I am providing him with DuoNeb while hospitalized. 4. Parkinson's: on Sinemet 5. Down syndrome: We are holding his Paxil, he appears to have progressively worsening dysphagia with recurrent aspirations despite G tube feed placement 6. Dyslipidemia: We are holding his statin 7. Thrombocytopenia: Secondary to sepsis and critical illness 10. Abnormal troponin: Secondary to demand ischemia in the setting of critical illness DVT prophylaxis: On hold secondary to thrombocytopenia DISPOSITION: Critically ill in the medical intensive care unit, prognosis poor with anticipated mortality. VS, I&O, 24H, Fishbone Vital Signs/I&O Vital Signs Date Time Temp Pulse Resp B/P (MAP) Pulse Ox O2 Delivery O2 Flow Rate FiO2 11/25/18 10:26 17 11/25/18 10:00 108 101/60 (74) 83 40.0 100 11/25/18 08:00 98.9 11/20/18 01:36 Non-Rebreather I&O- Last 24 Hours up to 6 AM 11/25/18 06:00 Intake Total 890 ml Output Total 325 ml Balance 565 ml Laboratory Data 24H LABS Laboratory Tests 2 11/24/18 12:43: Bedside Glucose (Misc Panel) 130H 11/24/18 18:13: Bedside Glucose (Misc Panel) 130H 11/25/18 00:39: Bedside Glucose (Misc Panel) 170H Microbiology Microbiology 11/20/18 Blood Culture - Final, Complete NO GROWTH AFTER 5 DAYS 11/20/18 Blood Culture - Final, Complete NO GROWTH AFTER 5 DAYS LOLIS POPE MD Nov 25, 2018 11:10
[2018-11-25] MEDS ORDERED: LORazepam 1 MG TAB PO PRN (14:45)
[2018-11-25] MEDS ORDERED: HYOSCYAMINE SULFATE 0.125 MG SUBL TABLET PO PRN (14:45)
[2018-11-25] MEDS ORDERED: ONDANSETRON 4MG/2ML VIAL (J2405) IV PRN (14:45)
[2018-11-25] MEDS ORDERED: SCOPOLAMINE 1MG TRANSDERMAL PATCH TOP PRN (14:45)
[2018-11-25] MEDS ORDERED: ATROPINE SULFATE 1% OP SOLN 2 ML BTL SL PRN (14:45)
[2018-11-25] MEDS: LORazepam 2 MG/ML VIAL (J2060) IV PRN ×2 (15:05→18:55)
[2018-11-26] MEDS: MORPHINE 4 MG/ML 1ML VIAL/SYRINGE (J2270) IV PRN ×12 (03:27→23:00)
[2018-11-26] MEDS: levETIRAcetam INJection 500 MG in D5W MINI-BAG PLUS 100 ML IV SCH ×2 (05:00→15:50)
[2018-11-26] MEDS: SINEMET 25-100 MG TAB GT SCH ×3 (05:04→15:50)
[2018-11-26] MEDS: LORazepam 2 MG/ML VIAL (J2060) IV PRN ×7 (06:56→23:00)
--- NOTE | 2018-11-26 16:22 | IPNPDOC ---
Text Note Date of Service The patient was seen on 11/26/18. NOTE 63 yo down's syndrome male admitted with sepsis due to recurrent aspiration pneuomonia. Presentaly on comfort measures/hospice care . Neice and extended family in room S: patient is non verbal O: Vitals as below General: appears comfortable HRRR LCTA with course rhonchi; see-saw breathing pattern with abdomen muscles and apneic episodes. A/P: 1. Sepsis secondary to aspiration pneumonia: Per prior hospitalist, "Lengthy discussions had previously with guardians caregivers despite aggressive medical interventions he is failing to improve. His guardians have asked that given his poor prognosis for recurrent aspirations despite being nothing by mouth and with the feeding tube they have requested that his status be changed from DNR/DNI to comfort measures only. In the process of completing this paperwork I have completed my part of it as has our data analytics chief scientist as a concurring physician. We suspect the paperwork in order to formally transitioned to status may likely be completed in the near future. The patient's guardian expressed great displeasure at the sight of there loved one undergoing prolonged suffering due to pending paperwork. I do not disagree with her assessment and informed her that the patient is a DNR/DNI we will continue to treat including adequately addressing his dyspnea and pain. Given he is unable to tolerate anything by mouth or per tube at this time and appears to have worsened pneumonia despite holding tube feeds and being nothing by mouth. His recurrent aspirations despite this and history of recurrent aspirations in the recent past and his current septic appearance make his overall prognosis extremely poor and I do agree he is comfort measures only appropriate" 2. Seizure: He was evaluated in our emergency room and had a negative CT scan of the head which was suggestive of normal pressure hydrocephalus, started on Keppra without any further seizure activity 3. Asthma: worsened but not exacerbated by aspiration pneumonia. continue nebs 4. Parkinson's: on Sinemet 5. Down syndrome: We are holding his Paxil, he appears to have progressively worsening dysphagia with recurrent aspirations despite G tube feed placement 6. Dyslipidemia: We are holding his statin 7. Thrombocytopenia: Secondary to sepsis and critical illness 8. Abnormal troponin: Secondary to demand ischemia in the setting of critical illness Disposition: patient in active dying process. discussed with family dying process and respiratory pattern. reassurance given. patient comfortable VS,Fishbone, I+O VS, Fishbone, I+O Vital Signs Date Time Temp Pulse Resp B/P (MAP) Pulse Ox O2 Delivery O2 Flow Rate FiO2 11/26/18 09:00 10.0 11/26/18 03:27 23 11/25/18 12:00 100 11/25/18 12:00 99.4 100 100/53 (69) 91 11/20/18 01:36 Non-Rebreather I&O- Last 24 Hours up to 6 AM 11/26/18 06:00 Intake Total 410 ml Output Total 75 ml Balance 335 ml STEFANI GEIGER DO Nov 26, 2018 13:03
[2018-11-27] MEDS: MORPHINE 4 MG/ML 1ML VIAL/SYRINGE (J2270) IV PRN ×3 (04:49→14:07)
[2018-11-27] MEDS: levETIRAcetam INJection 500 MG in D5W MINI-BAG PLUS 100 ML IV SCH ×2 (05:00→16:56)
[2018-11-27] MEDS: SINEMET 25-100 MG TAB GT SCH ×3 (05:05→16:56)
[2018-11-27] MEDS: LORazepam 2 MG/ML VIAL (J2060) IV PRN ×2 (10:50→14:06)
--- NOTE | 2018-11-27 10:56 | IPNPDOC ---
Text Note Date of Service The patient was seen on 11/27/18. NOTE S: patient on comfort care for sepsis with recurrent aspiation pneumonia. appears resting comfortably. family at bedside with no concerns O: Vitals as below General: unresponsive to verbal or tactile s timulation HRRR LCTA Ext no edema Abdomen: soft NT ND A/P: A/P: 1. Sepsis secondary to aspiration pneumonia: - comfort care only 2. Seizure: started on Keppra without any further seizure activity 3. Asthma: worsened but not exacerbated by aspiration pneumonia. continue nebs 4. Parkinson's: on Sinemet 5. Down syndrome: We are holding his Paxil, he appears to have progressively worsening dysphagia with recurrent aspirations despite G tube feed placement 6. Dyslipidemia: We are holding his statin 7. Thrombocytopenia: Secondary to sepsis and critical illness 8. Abnormal troponin: Secondary to demand ischemia in the setting of critical illness Disposition: patient in active dying process. discussed with family dying process and respiratory pattern. reassurance given. patient comfortable. Family states nursing staff told them patient could stay in hospital instead of going home with hospice. Per prior hospitalist, "Lengthy discussions had previously with guardians caregivers despite aggressive medical interventions he is failing to improve. His guardians have asked that given his poor prognosis for recurrent aspirations despite being nothing by mouth and with the feeding tube they have requested that his status be changed from DNR/DNI to comfort measures only. In the process of completing this paperwork I have completed my part of it as has our chief diversity officer as a concurring physician. We suspect the paperwork in order to formally transitioned to status may likely be completed in the near future. The patient's guardian expressed great displeasure at the sight of there loved one undergoing prolonged suffering due to pending paperwork. I do not disagree with her assessment and informed her that the patient is a DNR/DNI we will continue to treat including adequately addressing his dyspnea and pain. Given he is unable to tolerate anything by mouth or per tube at this time and appears to have worsened pneumonia despite holding tube feeds and being nothing by mouth. His recurrent aspirations despite this and history of recurrent aspirations in the recent past and his current septic appearance make his overall prognosis extremely poor and I do agree he is comfort measures only appropriate" VS,Fishbone, I+O VS, Fishbone, I+O Vital Signs Date Time Temp Pulse Resp B/P (MAP) Pulse Ox O2 Delivery O2 Flow Rate FiO2 11/27/18 04:59 10.0 11/26/18 03:27 23 11/25/18 12:00 100 11/25/18 12:00 99.4 100 100/53 (21) 41 STEFANI GEIGER DO Nov 27, 2018 10:56
[2018-11-27] MEDS: MORPHINE 10MG/0.5ML ORAL CONCENTRATE SOLUTION U/D SL PRN (20:12)
[2018-11-27] MEDS: LORazepam 1 MG TAB GT PRN (23:56)
[2018-11-27] MEDS: SCOPOLAMINE 1MG TRANSDERMAL PATCH TOP PRN (23:58)
[2018-11-28] MEDS: levETIRAcetam INJection 500 MG in D5W MINI-BAG PLUS 100 ML IV SCH (05:00)
[2018-11-28] MEDS: SINEMET 25-100 MG TAB GT SCH ×2 (05:02→12:00)
[2018-11-28] MEDS: MORPHINE 10MG/0.5ML ORAL CONCENTRATE SOLUTION U/D SL PRN ×3 (06:26→08:50)
[2018-11-28] MEDS: LORazepam 1 MG TAB GT PRN (07:54)
[2018-11-28] MEDS ORDERED: MORPHINE SULF IN 0.9% NACL 100 MG in APPROPRIATE DILUENT 1 EA IV SCH ×2 (10:15)
--- NOTE | 2018-11-28 12:05 | DS.PDOC ---
Discharge Summary General Date of Admission Nov 20, 2018 at 02:17 Date of Discharge 11/28/2018 Discharge Summary PROCEDURES PERFORMED DURING STAY: [None]. ADMITTING DIAGNOSES / DISCHARGE DIAGNOSES: Sepsis - 2/2 acute recurrent aspiration pneumonia Acute hypoxic respiratory failure - likely 2/2 above Recurrent aspiration pneumonia Asthma Down syndrome with severe dementia Benign prostatic hyperplasia (BPH) Type 2 diabetes Parkinson's disease Seep apnea on oxygen at night on 2 liters oxygen Seizure disorder Thrombocytopenia Elevated troponin - possibly 2/2 NSTEMI (Type II) DVT prophylaxis COMPLICATIONS/CHIEF COMPLAINT: Hypoxia and Hypotension HISTORY OF PRESENT ILLNESS / HOSPITAL COURSE: Patient is 63-year-old male from [facility] with a PMHx of Down syndrome, Severe dementia, Recurrent aspiration pneumonia, LIDIA on 2L NC oxygen at night, DM2, Seizure disorder, BPH who presented to the emergency room with complaints of shortness of breath and low blood pressure. At the facility, patient was found to have hypoxia and low blood pressure and was sent here for further evaluation. Emergency room, patient had imaging consistent with recurrent aspiration pneumonia. Patient was a DNR and DNI and was started on broad- spectrum antibiotics. Throughout hospital course was discussed with the healthcare proxy about transitioning the patient comfort measures only. Given that the patient has developmental delay Down syndrome and severe dementia, [facility] was involved to help facilitate the paperwork for transition to [employer]. Ultimately patient was converted to comfort measures, nonessential medications discontinued, and medications for comfort alone were instituted. Have had an extensive discussion with the health care proxy on the morning the patient . I have addressed all their concerns and questions. Ultimately patient succumbed to his illness on 11/28/2018 at 11:35AM. DISCHARGE MEDICATIONS: N/A ALLERGIES: Please see below. PHYSICAL EXAMINATION ON DISCHARGE: Full exam not completed LABORATORY DATA: Please see below. DISPOSITION: DISCHARGE CONDITION: TIME SPENT ON DISCHARGE: 35 minutes Vital Signs/I&Os Vital Signs Date Time Temp Pulse Resp B/P (MAP) Pulse Ox O2 Delivery O2 Flow Rate FiO2 11/28/18 11:16 6.0 11/26/18 03:27 23 11/25/18 12:00 100 11/25/18 12:00 99.4 100 100/53 (69) 91 I&O- Last 24 Hours up to 6 AM 11/28/18 05:59 Intake Total 0 ml Output Total 450 ml Balance -450 ml Microbiology Microbiology 11/20/18 Blood Culture - Final, Complete NO GROWTH AFTER 5 DAYS 11/20/18 Blood Culture - Final, Complete NO GROWTH AFTER 5 DAYS Discharge Medications Scheduled Albuterol Sulf (Albuterol Sulfate) 2.5 Mg/3 Ml Nebu, 2.5 MG INH TID, (Reported) Atorvastatin Calcium (Atorvastatin Calcium) 20 Mg Tablet, 20 MG GT QHS, (Reported) Carbamide Peroxide (Debrox) 15 Ml Drops, 5 DROP AU ASDIRECTED, (Reported) RECEIVES ON 3 CONSECUTIVE NIGHTS SOMETIME AT THE END OF THE MONTH Carbidopa/Levodopa (Sinemet 25-100 mg Tablet) 1 Tab Tab, 1 TAB GT TID, (Reported ) 0600,1200,1900 Levetiracetam (Keppra) 100 Mg/1 Ml Solution, 500 MG GT BID, (Reported) Paroxetine HCl (Paxil) 20 Mg Tab, 20 MG GT DAILY, (Reported) Petrolatum,White (Aquaphor with Natural Healing) 50 Gm Oint...g., 1 DOSE EXT BID, (Reported) APPLIED TO GROIN AND BUTTOCKS Polyethylene Glycol 3350 (Miralax) 17 Gm Powd.pack, 8.5 GM PO Q2D, (Reported) GIVEN IN 60CC OF WATER Sennosides (Senna) 8.6 Mg Tablet, 8.6 MG PO QHS, (Reported) Skin Cleanser (Cetaphil) 237 Ml Cleanser, 1 DOSE EXT DAILY, (Reported) APPLIED TO GROIN AND BUTTOCKS Scheduled PRN Guaifenesin (Guaifenesin) 200 Mg Tablet, 400 MG GT Q4H PRN for CONGESTION, (Reported) Petrolatum,White (Aquaphor with Natural Healing) 50 Gm Oint...g., 1 DOSE EXT ASDIRECTED PRN for BREAKDOWN, (Reported) APPLIED TO GROIN AND BUTTOCKS NEEDED IN ADDITIONAL TO SCHEDULED DOSE FOR BREAKDOWN Skin Cleanser (Cetaphil) 237 Ml Cleanser, 1 DOSE EXT ASDIRECTED PRN for DRY SKIN, (Reported) APPLIED TO GROIN AND BUTTOCKS NEEDED IN ADDITION TO SCHEDULED DOSE FOR BREAKDOWN Allergies Coded Allergies: No Known Allergies (Unverified , 11/20/18) ISIAH MAGDALENO MD Nov 28, 2018 12:05
== END 2018-11-28 11:35 | disposition expired | DRG 871 ==
LOC: M ED 00:50 → M ED INP 02:17 → M ICU 03:24 → M MSPAV 11-25 15:54
PROVIDERS: ADMIT Hospitalist; ATTEND Internal Medicine
DX: A41.9 Sepsis, unspecified organism (principal); J69.0 Pneumonitis due to inhalation of food and vomit; J96.01 Acute respiratory failure with hypoxia; I21.4 Non-ST elevation (NSTEMI) myocardial infarction; G91.2 (Idiopathic) normal pressure hydrocephalus; R65.20 Severe sepsis without septic shock; Q90.9 Down syndrome, unspecified; E11.9 Type 2 diabetes mellitus without complications; F02.80 Dementia in other diseases classified elsewhere, unspecified severity, without behavioral disturbance, psychotic disturbance, mood disturbance, and anxiety; I48.91 Unspecified atrial fibrillation; D69.59 Other secondary thrombocytopenia; J45.909 Unspecified asthma, uncomplicated; G40.909 Epilepsy, unspecified, not intractable, without status epilepticus; G47.33 Obstructive sleep apnea (adult) (pediatric); G20 Parkinson's disease; N40.0 Benign prostatic hyperplasia without lower urinary tract symptoms; Z51.5 Encounter for palliative care; Z79.899 Other long term (current) drug therapy; R13.10 Dysphagia, unspecified; Z66 Do not resuscitate; E78.5 Hyperlipidemia, unspecified; E87.5 Hyperkalemia; D64.9 Anemia, unspecified